=== PATIENT | female | born 1960 | race Caucasian/White ===

== ENCOUNTER 2024-04-08 16:59 | Emergency (ER) | payer BC, SELFPAY ==
--- NOTE | ~2024-04-08 | XR_ITS ---
EXAMINATION: XR chest 2V DATE: 04/08/2024 17:26 INDICATION: Weakness. TECHNIQUE: Frontal and lateral views of the chest were obtained. COMPARISON: None. FINDINGS: There is no pneumonia, pleural effusion, or pneumothorax. The heart size is normal. There a re old healed right rib fractures. IMPRESSION: 1. No acute cardiopulmonary disease. Reviewed, dictated and finalized at location A.
--- NOTE | ~2024-04-08 | CT_ITS ---
EXAMINATION: CT abdomen pelvis wo con DATE: 04/08/2024 17:47 INDICATION: Bilateral flank pain. TECHNIQUE: Computed tomography (CT) of the abdomen and pelvis was performed without intravenous contr ast. Automated exposure control and iterative reconstruction technique were employed. The dose-length product was 1507.06 mGy-cm. COMPARISON: None. FINDINGS: The visualized portions of lung bases demonstrate mild atelectasis. No pleural effusion. Th e heart size is normal. No pericardial effusion. There is liver surface nodularity, consistent with c irrhosis. There are gallstones in the gallbladder, which is normal in size. The spleen, pancreas, adr enal glands, and right kidney are normal. There is a 16 mm cyst in left kidney. There are no dilated loops of bowel. The appendix is normal. There is a periumbilical portacaval shunt. There are no patho logically enlarged lymph nodes. There is no free intraperitoneal fluid. There is severe lumbar spondy losis. There are chronic compression fractures from T11 to L2. IMPRESSION: 1. Cirrhosis of the liver with portal venous hypertension. Reviewed, dictated and finalized at location A.
--- NOTE | 2024-04-08 17:03 | ECG_ITS ---
Test Date: 2024-04-08 17:05:57 Measurements Intervals [place] Rate: 64 P: 47 [place]: 131 QRS: -44 QRSD: 90 T: 59 QT: 420 QTc: 436 Interpretive Statements SINUS RHYTHM LEFT AXIS DEVIATION [QRS AXIS < -30] No previous ECG available for comparison Electronically Signed On 04-09-2024 09:38:16 CDT by Kenji Romero M.D.
[2024-04-08 17:04] VITALS: BP 143/77; PULSE 63; RESP 13; TEMP 37.4; O2SAT 99
[2024-04-08 17:15] LABS: Basophils Percent Auto 0.6 % (0.2-1.2); Eosinophils Absolute Auto 0.4 K/mm3 (0-0.3); Eosinophils Percent Auto 8.2 % (0-4.4); Hematocrit 41.3 % (37.0-47.0); Hemoglobin 13.5 g/dL (12.0-15.0); Immature Granulocyte Absolute 0.01 K/mm3 (0.00-0.031); Immature Granulocyte Percent A 0.2 % (0-0.5); Lymphocytes Absolute Auto 1.97 K/mm3 (0.9-3.2); Lymphocytes Percent Auto 38.6 % (18.3-44.2); Mean Corpuscular HGB Conc 32.7 g/dl (32-36); Mean Corpuscular Hemoglobin 32.5 pg (26-34); Mean Corpuscular Volume 99.3 fl (80-100); Mean Platelet Volume 9.8 fl (7.4-10.4); Monocytes Absolute Auto 0.6 K/mm3 (0.1-0.6); Monocytes Percent Auto 12.2 % (2.6-8.5); Neutrophils Absolute Auto 2.1 K/mm3 (1.3-6.7); Neutrophils Percent Auto 40.2 % (45.5-73.1); Platelet Count Result 185 k/mm3 (150-375); Red Blood Count 4.16 M/mm3 (4.2-5.4); Red Cell Distribution Width 15.2 % (11.5-14.5); White Blood Count 5.1 K/mm3 (4.5-10.0)
[2024-04-08 17:25] LABS: Alanine Aminotransferase 140 U/L (6-35); Albumin Level 3.9 g/dL (3.5-5.1); Alkaline Phosphatase 112 U/L (38-126); Anion Gap 4 mmol/L (4-12); Aspartate Amino Transferase 169 U/L (14-36); Bilirubin,Total 0.5 mg/dL (0.2-1.3); Blood Urea Nitrogen 20 mg/dL (7-17); Calcium 9.9 mg/dL (8.4-10.2); Carbon Dioxide 30 mmol/L (22-30); Chloride 102 mmol/L (98-107); Estimated CRCL calculation 105 ml/min; Estimated Glomerular Filt Rate > 60; Glucose 137 mg/dL (65-110); Potassium 4.2 mmol/L (3.4-5.0); Sodium 136 mmol/L (137-145)
[2024-04-08] MEDS: SODIUM CHLORIDE 0.9% IV 1,000 ML 999 ML IV CONT (17:49)
--- NOTE | 2024-04-08 17:50 | ED.GENADULT ---
HPI - General Adult General Chief complaint: Weakness Stated complaint: weakness, UTI sx Time Seen by Provider: 04/08/24 17:03 Source: patient Mode of arrival: EMS Limitations: no limitations History of Present Illness HPI narrative: Patient is a 63-year-old female who presents the ED via EMS with report of UTI symptoms. Patient is currently residing at home with residential for rehab. States over the last 2-3 weeks she has been having a UTI symptoms including dysuria, frequency. She has history of frequent UTIs and states symptoms feel similar. She has had 2 separate UAs performed at the residential, but is unsure of the results of these. Denies significant abdominal pain, but does report intermittent nausea, weakness, and lower back pain, worse on the right side. Denies history of kidney stones. Denies hematuria. Denies fevers, vomiting. Related Data Allergies Allergy/AdvReac Type Severity Reaction Status Date / Time ziprasidone [From [facility]don] Allergy Anaphylaxis Verified 04/08/24 17:11 NSAIDS (Non-Steroidal AdvReac Ulcers Verified 04/08/24 17:11 Anti-Inflamma Review of Systems Review of Systems: All systems reviewed & are unremarkable except as noted in HPI. All systems reviewed & are unremarkable except as noted in HPI and below Exam Narrative: GENERAL: Well appearing, morbidly obese with BMI of 43.4, non-toxic, in no acute distress. HEAD: Normocephalic, atraumatic. RESPIRATORY: Airway patent, respirations nonlabored. Clear to auscultation bilaterally, no rales, rhonchi, wheezing. CARDIOVASCULAR: Regular rate and rhythm without murmurs, rubs, or gallops. ABDOMINAL: Soft, no significant tenderness throughout abdomen. Nondistended. Normoactive BS. Mild + R CVA tenderness. MUSCULOSKELETAL: Moves all extremities. No gross deformities. SKIN: Warm, dry, normal color. NEURO: A&O X3. Speech clear. PSYCHIATRIC: Appropriate mood and affect. Normal interaction. Course Vital Signs Vital signs: Vital Signs Temperature 99.3 F 04/08/24 17:04 Pulse Rate 63 04/08/24 17:04 Respiratory Rate 13 04/08/24 17:04 Blood Pressure 143/77 H 04/08/24 17:04 Pulse Oximetry 99 04/08/24 17:04 Oxygen Delivery Room Air 04/08/24 17:04 Temperature 99.3 F 04/08/24 17:04 Pulse Rate 63 04/08/24 17:04 Respiratory Rate 13 04/08/24 17:04 Blood Pressure 143/77 H 04/08/24 17:04 Pulse Oximetry 99 04/08/24 17:04 Oxygen Delivery Room Air 04/08/24 17:04 Medical Decision Making MDM Narrative Medical decision making narrative: Patient presented to ED with concern for UTI symptoms, weakness. History of frequent UTIs. Currently at residential for reported rehab. Vital signs are stable upon arrival. In no acute distress. CBC is without leukocytosis. CMP is fairly unremarkable. Stable electrolytes and kidney function. AST and ALT are mildly elevated, though total bilirubin is normal. No right upper quadrant tenderness exam. Viral swabs are negative. UA is clear. No signs of infection whatsoever. Chest x-ray is clear. CT scan of abdomen/pelvis was obtained and showing cirrhosis with portal venous hypertension, no ureterolithiasis, pyelonephritis. Updated patient on this. She does report she has been told her liver enzymes have been elevated in the past. She denies known history of cirrhosis. She does have history of alcoholism several years ago. Will refer to GI for further evaluation of this. No evidence of decompensated liver failure at this time. EKG without concerning changes. Patient was updated on lab and imaging findings, overall nonrevealing w/u. Patient states she is feeling much better after 1L of fluids. She feels reassured by w/u. Feels safe for d/c back to facility. Will prescribe Pyridium for symptom relief. Recommended close follow-up with PCP/GI for further evaluation. Given return precautions. Discharged in stable condition. Medical Records Medical records reviewed: Efraín
[2024-04-08 18:07] LABS: Lactic Acid Reflex 1.4 mmol/L (0.7-2.0)
[2024-04-08 18:12] LABS: Add Urine Microscopic? NO; Appearance Urine Clear (Clear); Bilirubin Urine Negative (Negative); Blood Urine Negative (Negative); Color Urine Yellow (Yellow); Glucose Urine UA Negative (Negative); Ketones Urine Negative (Negative); Leukocyte Esterase Ur Negative LEU/UL (Negative); Nitrate Urine Negative (Negative); Protein Urine Negative (Negative); Specific Grav Ur 1.018 (1.001-1.035)
[2024-04-08 18:31] LABS: Influenza A QL RT-PCR Negative (Negative); Influenza B QL RT-PCR Negative (Negative); RSV RNA, RT-PCR Negative (Negative); SARS-CoV-2 RNA PCR Negative (Negative)
== END 2024-04-08 20:18 | disposition home or self-care (01) ==
PROVIDERS: Emergency Medicine; Emergency Provider Physician Assistant
DX: R30.0 Dysuria (principal); R53.1 Weakness; K74.60 Unspecified cirrhosis of liver; Z20.822 Contact with and (suspected) exposure to COVID-19
CPT/HCPCS: 36415; 71046; 74176; 80053; 81003; 83605; 85025; 87637; 93005; 96360; 99284; J7030

== ENCOUNTER 2025-01-27 21:26 | Inpatient (IN) | payer OTHER, SELFPAY ==
[2025-01-27] VITALS (9 sets, daily range): BP systolic 84–129; BP diastolic 42–89; PULSE 72–105; RESP 14–20; TEMP 36.7–37.2; O2SAT 95–99
--- NOTE | ~2025-01-27 | XR_ITS ---
EXAMINATION: XR chest 1V portable DATE: 02/09/2025 05:42 INDICATION: Acute respiratory failure. Pneumonia. TECHNIQUE: frontal view of the chest was obtained. COMPARISON: Chest radiograph dated 02/08/2025 FINDINGS: Endotracheal tube tip 1.9 cm above the [place]is[place]. Nasoenteric feeding tube extends below the left hemidi aphragm and beyond the inferior margin of the field of imaging. Right internal jugular central venous catheter with distal tip in the right atrium. Small lung volumes with patchy airspace opacities throughout both lungs, unchanged on the left with s light improvement in the right mid to upper lung zone. No pleural effusion or pneumothorax. Heart siz e is normal. IMPRESSION: 1. Small lung volumes with diffuse patchy bilateral airspace opacities which could represent atelecta sis and/or pneumonia with slight improvement in the right mid-upper lung zone. Reviewed, dictated and finalized at location A. IMPRESSION: 1. Small lung volumes with diffuse patchy bilateral airspace opacities which co uld represent atelectasis and/or pneumonia with slight improvement in the right mid-upper lung zone.
--- NOTE | ~2025-01-27 | XR_ITS ---
EXAMINATION: XR chest 1V portable DATE: 02/07/2025 06:16 INDICATION: Acute respiratory failure and pneumonia TECHNIQUE: frontal view of the chest was obtained. COMPARISON: Chest radiograph dated 02/06/2025 FINDINGS: Endotracheal tube tip 1.8 cm above the [place]. Right internal jugular central venous catheter with di stal tip in the right atrium. Patchy airspace opacities throughout both lungs. No pleural effusion or pneumothorax. Heart size is n ormal. IMPRESSION: 1. Persistent patchy airspace opacities throughout both lungs consistent with pneumonia, pulmonary ed stephen, acute respiratory distress syndrome or some combination thereof. Reviewed, dictated and finalized at location A. IMPRESSION: 1. Persistent patchy airspace opacities throughout both lungs consistent with p neumonia, pulmonary edema, acute respiratory distress syndrome or some combinat ion thereof.
--- NOTE | ~2025-01-27 | XR_ITS ---
XR chest 1V portable 02/05/2025 05:37 Indication: Respiratory failure Procedure: AP portable chest Comparison: Comparison to multiple prior studies sequentially, with oldest reviewed study dated 02/02. Findings: Endotracheal tube tip 2.6 cm by the [place]. Right IJ central line tip in the right atrium. Diffuse bilateral airspace consolidation. Small pleural effusions. No pneumothorax. Right IJ central line tip in the SVC near the cavoatrial junction. Impression: 1: Stable diffuse bilateral airspace consolidation which may represent pneumonia and/or edema. Reviewed, dictated and finalized at location A. Impression: 1: Stable diffuse bilateral airspace consolidation which may represent pneumoni a and/or edema.
--- NOTE | ~2025-01-27 | XR_ITS ---
CHEST RADIOGRAPH CLINICAL HISTORY: GI bleed . COMPARISON: 04/08/2024 TECHNIQUE: Single portable view of the chest. FINDINGS Right internal jugular central venous catheter identified with its tip projecting over the proximal r ight atrium. Nasogastric tube extends below the left hemidiaphragm, presumably within the stomach. The remainder of the cardiomediastinal silhouette is otherwise unremarkable. The lungs are clear. No right-sided pneumothorax. IMPRESSION: No focal infiltrate or effusion. Right internal jugular central venous catheter in good position and ready for immediate use. Reviewed, dictated and finalized at location A. IMPRESSION: No focal infiltrate or effusion. Right internal jugular central venous catheter in good position and ready for i mmediate use.
--- NOTE | ~2025-01-27 | XR_ITS ---
EXAMINATION: XR chest 1V portable DATE: 01/31/2025 05:09 INDICATION: Respiratory failure on mechanical ventilation TECHNIQUE: frontal view of the chest was obtained. COMPARISON: Chest radiograph dated 01/30/2025 FINDINGS: Endotracheal tube tip 5.0 cm above the [place]. Small lung volumes. Persistent retrocardiac consolidat ion in the left lower lung zone. Persistent small airspace opacities in the right lower lung zone. Sm all left pleural effusion. No pneumothorax. Heart size is normal. A few old right rib fractures. IMPRESSION: 1. Unchanged opacities in the bilateral lower lung zones, left greater right which could represent at electasis and/or pneumonia. 2. Small left pleural effusion. Reviewed, dictated and finalized at location A. IMPRESSION: 1. Unchanged opacities in the bilateral lower lung zones, left greater right wh ich could represent atelectasis and/or pneumonia. 2. Small left pleural effusion.
--- NOTE | ~2025-01-27 | XR_ITS ---
EXAMINATION: XR chest ET placement Exam Date/Time: 02/04/2025 21:30 CDT HISTORY: intubation Comparison: Same date at 5:16 AM. RESULT: Lines, tubes, and devices: The endotracheal tube terminates 2.7 cm above the [place]. Right IJ centra l line terminates just past the cavoatrial junction. Lungs and pleura: Stable patchy left lung and worsening patchy right lung airspace disease. Mild cos tophrenic angle blunting bilaterally. Cardiomediastinal silhouette: Stable. Other: No acute osseous or upper abdominal finding. IMPRESSION: Endotracheal tube terminating 2.7 cm above the mo[place], consider retraction. Right IJ central line terminates just past the cavoatrial junction, likely accentuated by low lung vo lumes. Stable left lung and worsening right lung patchy airspace disease. Possible small bilateral effusions . Reviewed, dictated and finalized at [facility] K. IMPRESSION: Endotracheal tube terminating 2.7 cm above the mo[place], consider retraction. Right IJ central line terminates just past the cavoatrial junction, likely acce ntuated by low lung volumes. Stable left lung and worsening right lung patchy airspace disease. Possible sma ll bilateral effusions.
--- NOTE | ~2025-01-27 | XR_ITS ---
Portable chest x-ray Comparison: 01/28/2025 Clinical History: Respiratory failure Findings: Endotracheal tube, NG tube, and right IJ line are in place. Small left pleural effusion an d minimal right pleural effusion present. There is bibasilar mild pulmonary edema/atelectatic change. Cardiomediastinal silhouette is stable. Bones and soft tissues are unremarkable. Impression: Mild bibasilar pulmonary edema/atelectasis with small pleural effusions, left greater than right. Support tubes, as above. Reviewed, dictated and finalized at location M. Impression: Mild bibasilar pulmonary edema/atelectasis with small pleural effusions, left g reater than right. Support tubes, as above.
--- NOTE | ~2025-01-27 | CT_ITS ---
EXAMINATION: CT brain wo con DATE: 02/02/2025 13:23 INDICATION: Encephalopathy TECHNIQUE: Computed tomography (CT) of the head was performed without intravenous contrast. Sagittal and coronal reconstructions were performed. The mA was adjusted according to patient size. Iterative reconstruction technique was employed. The dose-length product was 681.00 mGy-cm. COMPARISON: head CT dated 01/28/25 FINDINGS: No acute intracranial hemorrhage, acute infarction or abnormal extra axial fluid collection. There is mild scattered white matter hypoattenuation consistent with chronic small vessel ischemic disease. S ymmetric prominence of the sulci consistent with mild age-appropriate diffuse cerebral volume loss. Ventricles are normal and symmetric. No mass/mass effect. Changes of right intraocular lens replaceme nt. The orbits and paranasal sinuses are normal. Unchanged small left mastoid effusion. Likely benign partially calcified midline frontal scalp nodule, likely a trichilemmal cyst. IMPRESSION: 1. No acute intracranial process. 2. Stable age-related changes including mild diffuse volume loss and mild scattered white matter hypo attenuation consistent with chronic small vessel ischemic disease. Reviewed, dictated and finalized at location A. IMPRESSION: 1. No acute intracranial process. 2. Stable age-related changes including mild diffuse volume loss and mild scatt ered white matter hypoattenuation consistent with chronic small vessel ischemic disease.
--- NOTE | ~2025-01-27 | XR_ITS ---
XR chest 1V portable 01/30/2025 06:41 Indication: Respiratory distress Procedure: AP portable chest Comparison: Comparison to multiple prior studies sequentially, with oldest reviewed study dated 03/25. Findings: Cardiomegaly. Mild interstitial edema. Focal consolidation left lower lobe. Small left pleu ral effusion. Endotracheal tube tip 4.5 cm above the mois[place]. Right IJ central line tip near the cavoa trial junction. NG tube in the stomach. Impression: 1: Focal consolidation left lower lobe may represent atelectasis and/or pneumonia. 2: Cardiomegaly with mild interstitial edema. 3: Small left pleural effusion. Reviewed, dictated and finalized at location A. Impression: 1: Focal consolidation left lower lobe may represent atelectasis and/or pneumon ia. 2: Cardiomegaly with mild interstitial edema. 3: Small left pleural effusion.
--- NOTE | ~2025-01-27 | CT_ITS ---
Non-contrast Head CT History: Unequal pupils Technique: Axial non-contrast imaging of the brain was performed. Dose reduction technique was used on this scan by utilizing automated exposure control and iterative reconstruction technique. The dose -length product (DLP) was 681.00 mGy-cm. Findings: There is no evidence of intracranial hemorrhage, mass lesion, or acute infarct. Brain par enchyma appears normal. The ventricles and subarachnoid spaces are normal in size. The calvarium ap pears normal. The visualized paranasal sinuses and mastoid air cells are clear. Impression: No significant abnormality seen. Reviewed, dictated and finalized at location . Impression: No significant abnormality seen.
--- NOTE | ~2025-01-27 | XR_ITS ---
XR chest 1V portable 02/02/2025 05:19 Indication: Respiratory failure Procedure: AP portable chest Comparison: Comparison to multiple prior studies sequentially, with oldest reviewed study dated 12/2024. Findings: Endotracheal tube tip 4.2 cm above the moisés. Cardiomegaly. Mild interstitial edema. No pl eural effusion or pneumothorax. Central line tip near the cavoatrial junction. Impression: 1: No significant change to bilateral airspace disease, compatible with edema. Reviewed, dictated and finalized at location A. Impression: 1: No significant change to bilateral airspace disease, compatible with edema.
--- NOTE | ~2025-01-27 | XR_ITS ---
EXAMINATION: XR chest 1V portable DATE: 02/01/2025 05:20 INDICATION: Respiratory failure TECHNIQUE: frontal view of the chest was obtained. COMPARISON: Chest radiograph dated 01/31/2025 FINDINGS: Endotracheal tube tip 3.5 cm above the moisés. Right internal jugular central venous catheter with di stal tip in the right atrium. Lung volumes are small. Opacities at the bilateral lower lung zones with interval decrease on the lef t. No pleural effusion or pneumothorax. Heart size is within normal limits for AP technique Visualize d bones and soft tissues are unremarkable. IMPRESSION: 1. Small lung volumes and persistent opacities in bilateral lower lung zones, decreased on the left, which could represent atelectasis or pneumonia. Reviewed, dictated and finalized at location A. IMPRESSION: 1. Small lung volumes and persistent opacities in bilateral lower lung zones, d ecreased on the left, which could represent atelectasis or pneumonia.
--- NOTE | ~2025-01-27 | XR_ITS ---
EXAMINATION: XR fl Dobhoff insert/rad w img DATE: 02/07/2025 13:00 INDICATION: Esophageal varices banding. Coiling of nasogastric tube. TECHNIQUE: A Dobbhoff type feeding tube was advanced into the duodenum utilizing intermittent fluoroscopy. 15 mL Omnipaque 240 water-soluble contrast was injected into the stomach to delineate the anatomy the yan makayla outlet and duodenum. Final image demonstrates the feeding tube in position with the weighted tip at the expected location of the ligament of Treitz. The tube was flushed with 10 mL sterile saline an d fixed to the nares with adhesive tape. A single fluoroscopic image was recorded. The amount of fluo roscopy time used during this procedure was 1.1 minutes. Total DAP was 16.523 Gycm^2. There were no immediate complications. FINDINGS/IMPRESSION: Successful fluoroscopy-guided Dobbhoff feeding tube placement with distal tip in the fourth portion o f the duodenum. Reviewed, dictated and finalized at location A.
--- NOTE | ~2025-01-27 | CT_ITS ---
CLINICAL INDICATION: Epigastric abdominal pain with active bleeding from the rectum. COMPARISON: 04/08/2024. TECHNIQUE: Computed tomography angiography (CTA) of the chest was performed with 100 mL Omnipaque-350 intravenous contrast timed to evaluate the abdominal aorta and mesenteric vasculature. Coronal maxim um intensity projection 3D-reconstructions were created by the technologist. The dose-length product (DLP) was 1544.98 mGy-cm. Automated exposure control and iterative reconstruction technique were empl oyed. FINDINGS/OBSERVATIONS: Visualized lower thorax: Bilateral lung bases are clear. The heart is of normal size, without pericardial effusion. Nasogastric tube is in the stomach which contains dense attenuation, of increased attenuation value, not consistent with blood. Liver: The liver is borderline enlarged measuring 19 cm in longitudinal dimension. The liver is nodular in contour with multiple areas of abnormal attenuation, the largest within segme nt 6 measuring 2.2 x 2.7 x 3.1 cm (anterior to posterior x medial to lateral x cranial to caudal dime nsion). This focus is increased in size from examination dated 04/08/2024, for which a malignancy is suspected (versus a regenerative nodule, less likely). A smaller focus of abnormal attenuation is identified within segment 4 measuring 1.7 x 1.9 x 1.6 cm ( anterior to posterior x medial to lateral x cranial to caudal dimension). Gallbladder and biliary system: The gallbladder contains multiple calcified stones, and is otherwise unremarkable. Pancreas: The pancreas enhances homogeneously without ductal dilatation. Spleen: Spleen demonstrates homogeneous enhancement, without enlargement. Kidneys: The bilateral kidneys are diminutive and atrophic. 12 mm focus of fluid attenuation within the interpolar region of the left kidney, for which a cyst is suspected. No hydronephrosis or renal calculi. Adrenal glands: Unremarkable. Gastrointestinal tract: A rectal tube is present. Within the distal rectum multiple areas of increased attenuation, for which acute hemorrhage is suspe cted. Vasculature: Cavernous transformation of the portal vein is present. Umbilical varices are also noted. No splenorenal varices are present. Esophageal varices are present. Anorectal varices are noted within the deep pelvis. Lymph nodes: No pathologically enlarged or morphologically suspicious lymph nodes within the retroperitoneum or at the root of the mesentery. Pelvic structures: The bladder is decompressed with Simon catheter, limiting its evaluation. The uterus is anteverted and anteflexed. Intra-abdominal ascites is present, an interval change from prior examination. Body wall and musculoskeletal: Age advanced degenerative disease within the lower thoracic and lumbosacral spines. Umbilical varices are redemonstrated within the soft tissues of the anterior abdominal wall. IMPRESSION: Findings within the liver for which malignancy is suspected. Additional findings within the rectum for which acute hemorrhage is suspected (likely secondary to an orectal varices). No findings to suggest upper GI bleeding. 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 Incidental notation is made of cholelithiasis. Reviewed, dictated and finalized at location A. IMPRESSION: Findings within the liver for which malignancy is suspected. Additional findings within the rectum for which acute hemorrhage is suspected ( likely secondary to anorectal varices). No findings to suggest upper GI bleeding. 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 Incidental notation is made of cholelithiasis.
--- NOTE | ~2025-01-27 | XR_ITS ---
EXAMINATION: XR abdomen gastric tube insert DATE: 01/28/2025 13:52 INDICATION: Nasogastric tube placement TECHNIQUE: A supine view of the abdomen and lower chest was obtained for evaluation of feeding tube placement. COMPARISON: None. FINDINGS: Nasogastric tube tip in proximal side port in the body the stomach. Mild elevation of left hemidiaphr agm. Mild streaky bibasilar atelectasis. No dilated loops of gas-filled bowel in the visualized abdom en which excludes the lower abdomen and portions of the lateral right abdomen. IMPRESSION: 1. Nasogastric tube in stomach. Reviewed, dictated and finalized at location A.
--- NOTE | ~2025-01-27 | XR_ITS ---
XR chest 1V portable 02/04/2025 05:37 Indication: Respiratory failure Procedure: AP portable chest Comparison: 02/03/2025 Findings: Endotracheal tube tip 5.2 cm above the moisés. Heart size normal. Progression of diffuse bi lateral airspace disease. Small right pleural effusion. No pneumothorax. Right IJ central line tip ne ar the cavoatrial junction. Shallow inspiration. Impression: 1: Interval progression of diffuse bilateral airspace disease which may represent edema and/or pneumo carl. Reviewed, dictated and finalized at location A. Impression: 1: Interval progression of diffuse bilateral airspace disease which may represe nt edema and/or pneumonia.
--- NOTE | ~2025-01-27 | XR_ITS ---
Exam: Abdomen 1V HISTORY: post ng tube placement COMPARISON: None. TECHNIQUE: Supine images of the lower chest and upper abdomen FINDINGS: Nasogastric tube extends into the left upper quadrant, with its tip projecting to the right of midlin e, presumably within the stomach. IMPRESSION: Nasogastric tube in good position and ready for immediate use. Reviewed, dictated and finalized at location A.
--- NOTE | ~2025-01-27 | XR_ITS ---
Portable chest x-ray Comparison: 02/07/2025 Clinical History: Respiratory failure Findings: Endotracheal tube and right IJ line are in place. Extensive bilateral airspace disease is present. Probable minimal pleural effusions. Cardiomediastinal silhouette is stable. Bones and soft tissues are unremarkable. Impression: Extensive patchy bilateral airspace disease. Correlate for pulmonary edema versus bilateral pneumonia . Minimal pleural effusions. Support tubes, as above. Reviewed, dictated and finalized at [facility]. Impression: Extensive patchy bilateral airspace disease. Correlate for pulmonary edema vers us bilateral pneumonia. Minimal pleural effusions. Support tubes, as above.
--- NOTE | ~2025-01-27 | CT_ITS ---
EXAMINATION: CT chest abdomen pelvis w con DATE: 02/05/2025 10:14 CDT INDICATION: Pneumonia. Constipation. TECHNIQUE: Computed tomography (CT) of the chest, abdomen, and pelvis was performed without intraveno us contrast. The dose-length product was 1936.13 mGy-cm. COMPARISON: CT abdomen and pelvis 04/08/2024 FINDINGS: CHEST CT: Endotracheal tube with its tip 3 cm above the moisés. There are a few nonenlarged, nonspecific mediastinal and hilar lymph nodes. Heart is mildly enlarged. There are coronary artery calcifications. Thoracic aorta is not aneurysmal. Mild atherosclerotic disease in the thoracic aorta. Visualized tracheal bronchial tree is patent. Tiny left-sided pleural effusion. Small right-sided pleural effusion. Moderate to large groundglass and patchy opacities scattered throughout both lungs. Moderate-sized co nsolidations in the lower lobes, larger on the right with air bronchograms. ABDOMEN/PELVIS CT: The liver is heterogeneous. Micronodular appearance to the surface of the liver. There is a 2.4 cm lo w-density lesion in the posterior segment of the right lobe of the liver. A liver mass MRI is recomme nded. Evaluation of the liver is significantly limited due to artifact. There are several gallstones in the gallbladder. There is a too small to characterize low-attenuation lesion in the left kidney. Adrenal glands are un remarkable. Spleen is unremarkable. Pancreas is unremarkable. Moderate amount of nonspecific fat stranding and ascites scattered throughout the abdomen and pelvis. Normal aorta is not aneurysmal. Moderate atherosclerotic disease in the abdominal aorta. Simon catheter in the nondistended bladder. No dilated bowel loops. Nonspecific fat stranding in the subcutaneous fat along the anterior abdominal and pelvic uribe. Bones appear osteopenic. Multilevel degenerative change in the lower thoracic and lumbar spine simila r to the study from 04/08/2024. IMPRESSION: 1. Tiny left-sided pleural effusion. Small right-sided pleural effusion. 2. Moderate to large groundglass and patchy opacities scattered throughout both lungs. Differential i s broad and includes but is not limited to edema or pneumonia. Recommend follow-up to resolution. 3. Moderate-sized consolidations in the lower lobes, larger on the right, with air bronchograms. Olivier mmend follow-up to resolution. 4.The liver is heterogeneous. Micronodular appearance to the surface of the liver. There is a 2.4 cm low-density lesion in the posterior segment of the right lobe of the liver. A liver mass MRI is recom mended. Evaluation of the liver is significantly limited due to artifact. 5. Moderate amount of nonspecific fat stranding and ascites scattered throughout the abdomen and pelv is. 6. Cholelithiasis. Reviewed, dictated and finalized at location A. IMPRESSION: 1. Tiny left-sided pleural effusion. Small right-sided pleural effusion. 2. Moderate to large groundglass and patchy opacities scattered throughout both lungs. Differential is broad and includes but is not limited to edema or pneum onia. Recommend follow-up to resolution. 3. Moderate-sized consolidations in the lower lobes, larger on the right, with air bronchograms. Recommend follow-up to resolution. 4.The liver is heterogeneous. Micronodular appearance to the surface of the dennis er. There is a 2.4 cm low-density lesion in the posterior segment of the right lobe of the liver. A liver mass MRI is recommended. Evaluation of the liver is significantly limited due to artifact. 5. Moderate amount of nonspecific fat stranding and ascites scattered throughou t the abdomen and pelvis. 6. Cholelithiasis.
--- NOTE | ~2025-01-27 | XR_ITS ---
EXAMINATION: XR abdomen obstructive series DATE: 02/07/2025 10:06 INDICATION: Distended abdomen. TECHNIQUE: Supine and upright views of the abdomen. FINDINGS: CT dated 02/05/2025 There is airspace disease in the lung bases.. There is diffuse opacification of the abdomen and pelvi s, consistent with ascites. No significant bowel gas demonstrated. Study extremely limited due to pat ient body habitus. There is moderate lumbar spondylosis with levoscoliosis. IMPRESSION: 1. Diffuse opacification of the abdomen without significant bowel gas, likely attributable to ascite s. Study limited by patient body habitus. 2: Bibasilar airspace disease may represent edema or pneumonia. Reviewed, dictated and finalized at location A. IMPRESSION: 1. Diffuse opacification of the abdomen without significant bowel gas, likely attributable to ascites. Study limited by patient body habitus. 2: Bibasilar airspace disease may represent edema or pneumonia.
--- NOTE | ~2025-01-27 | XR_ITS ---
XR chest 1V portable 02/06/2025 06:04 Indication: Respiratory failure Procedure: AP portable chest Comparison: Comparison to multiple prior studies sequentially, with oldest reviewed study dated 02/03. Findings: Improving patchy bilateral airspace consolidation. Right IJ central line tip in the SVC. En dotracheal tube tip 3.3 cm above the moisés. No significant effusion. No pneumothorax. No acute osseo us abnormality. There are healed right lower rib fractures. Impression: 1: Improving patchy bilateral airspace disease,, most likely pneumonia or edema. Clinically correlate . Reviewed, dictated and finalized at location A. Impression: 1: Improving patchy bilateral airspace disease,, most likely pneumonia or edema . Clinically correlate.
--- NOTE | ~2025-01-27 | XR_ITS ---
EXAMINATION: XR chest ET placement, XR abdomen gastric tube insert DATE: 01/28/2025 09:38 INDICATION: Endotracheal tube placement. Nasogastric tube placement. TECHNIQUE: 1. Frontal view of the chest was obtained. 2. AP view of the abdomen was obtained on 2 images for assessment of feeding tube placement. COMPARISON: Chest radiograph dated 01/27/2025 FINDINGS: New endotracheal tube with distal tip 1.7 cm above the moisés. Unchanged dual-lumen right internal ju gular central venous catheter with distal tip in the right atrium. Nasogastric tube with tip in proxi mal side port in the body of the stomach. Mildly decreased lung volumes with bibasilar no pulmonary edema, pleural effusion or pneumothorax. He art size is normal. A few old healed posterolateral right rib fractures. Opacities which could repres ent atelectasis or pneumonia. No abnormal dilated gas-filled loops of bowel in the visualized abdomen . The pelvis and right lower quadrant of the abdomen are excluded from the field of imaging. IMPRESSION: 1. Lines and tubes in expected position as detailed above. 2. Small lung volumes with mild bibasilar atelectasis versus pneumonia. Reviewed, dictated and finalized at location A. IMPRESSION: 1. Lines and tubes in expected position as detailed above. 2. Small lung volumes with mild bibasilar atelectasis versus pneumonia.
--- NOTE | ~2025-01-27 | XR_ITS ---
XR chest 1V portable 02/03/2025 05:27 Indication: Respiratory failure Procedure: AP portable chest Comparison: Comparison to multiple prior studies sequentially, with oldest reviewed study dated 01/2025. Findings: Endotracheal tube tip 4.6 cm above the moisés. Central line tip near the cavoatrial junctio n. No pneumothorax. Patchy bilateral airspace disease which may reflect pneumonia or edema. Possible small effusion. No pneumothorax. Impression: 1: Persistent patchy bilateral airspace disease which may represent pneumonia or edema. Reviewed, dictated and finalized at location A. Impression: 1: Persistent patchy bilateral airspace disease which may represent pneumonia o r edema.
--- NOTE | ~2025-01-27 | XR_ITS ---
Exam: Abdomen 1V HISTORY: NG PLACEMENT COMPARISON: None TECHNIQUE: Supine images of the lower chest and upper abdomen FINDINGS: Nasogastric is coiled within the oral cavity and then extends along the trachea above the moisés.. IMPRESSION: Nasogastric tube coiled within the patient's mouth and extending along the trachea to the left of mid line above the moisés. Reviewed, dictated and finalized at location A. IMPRESSION: Nasogastric tube coiled within the patient's mouth and extending along the trac hea to the left of midline above the moisés.
--- NOTE | 2025-01-27 21:29 | ECG_ITS ---
Test Date: 2025-01-27 21:34:48 Measurements Intervals [place] Rate: 107 P: 59 [place]: 142 QRS: -18 QRSD: 88 T: 61 QT: 330 QTc: 442 Interpretive Statements SINUS TACHYCARDIA DELAYED PRECORDIAL R/S TRANSITION BASELINE ARTIFACT- I, III, AVR, AVL ABNORMAL ECG Compared to ECG 04/08/2024 17:05:57 HEART RATE HAS INCREASED Electronically Signed On 01-28-2025 06:23:12 CDT by Raymon Giraldo D.O.
--- NOTE | 2025-01-27 21:40 | ED.GIBLEED ---
HPI - GI Bleed General Chief complaint: GI Bleed <CAROLINE Bal Last Filed: 01/28/25 02:31> Stated complaint: Rectal bleeding/abd pain <CAROLINE Bal Last Filed: 01/28/25 02:31> History of Present Illness HPI Narrative: 64-year-old female presents emergency department from [facility] via EMS for a GI bleed. Patient states today she has had epigastric abdominal pain. He EMS states facility told them that when they got the patient up to given the shower they noticed active bleeding from the rectum 30 minutes prior to arrival. The patient states that she has had a similar episode previously several years ago. She notes a colonoscopy last in 2010 but is uncertain of results. Denies prior history of endoscopy. Per chart review patient had cirrhosis diagnosed on CT imaging with evidence of portal hypertension in February 2024. Admits to remote hx of alcohol abuse. Denies current ETOH use. Patient denies nausea, vomiting, coffee-ground emesis or hematemesis. She is not anticoagulated. <Camille Little PA-C - Last Filed: 01/28/25 02:31> Related Data Allergies/Adverse reactions: Allergies Allergy/AdvReac Type Severity Reaction Status Date / Time ziprasidone (From Marc) Allergy Anaphylaxis Verified 04/08/24 17:11 NSAIDS (Non-Steroidal AdvReac Ulcers Verified 04/08/24 17:11 Anti-Inflamma <CAROLINE Bal Last Filed: 01/28/25 02:31> Review of Systems Review of Systems: All systems reviewed & are unremarkable except as noted in HPI and below <Camille Little PA-C - Last Filed: 01/28/25 02:31> [facility] Past Medical History Medical History: Medical History Compression fracture of L2 T12 compression fracture Compression fracture of T11 vertebra Compression fracture of L1 lumbar vertebra Portal venous hypertension Alcoholic cirrhosis Alcoholism in recovery <CAROLINE Bal Last Filed: 01/28/25 02:31> Surgical History Surgical History: Surgical History (Updated 01/28/25 @ 02:18 by Gabriela Mckeon DO) Surgical history unknown <CAROLINE Bal Last Filed: 01/28/25 02:31> Family History Family History: Family History (Updated 01/28/25 @ 02:18 by Gabriela Mckeon DO) Other Unknown family medical history <Camille Little PA-C - Last Filed: 01/28/25 02:31> Social History Social History: Social History Social History: Patient resides at [facility]. She has a history of alcohol abuse in recovery. Code status: Full code <Camille Little PA-C - Last Filed: 01/28/25 02:31> Exam Narrative: GENERAL: Ill-appearing, diaphoretic, moaning in pain HEAD: Normocephalic, atraumatic. EYES: PERRLA and EOMI. ENT: Nares clear, no rhinorrhea or epistaxis. Mucous membranes moist. NECK: Supple. CHEST: Clear to auscultation. No respiratory distress. HEART: Regular rate and rhythm. No murmur heard. Normal peripheral pulses. ABDOMEN: Abdomen is distended and tender to the epigastrium. No rebound or rigidity. Melena actively oozing from rectum EXTREMITIES: Normal range of motion. No edema. SKIN: Warm, dry, no rash. NEURO: No focal deficits. Alert and oriented x3 <Camille Little PA-C - Last Filed: 01/28/25 02:31> Course Vital Signs Vital signs: Vital Signs Pulse Rate 105 H 01/27/25 21:08 Respiratory Rate 14 01/27/25 21:08 Blood Pressure 129/61 01/27/25 21:08 Pulse Oximetry 99 01/27/25 21:08 Oxygen Delivery Room Air 01/27/25 21:08 Temperature 98.9 F 01/27/25 22:22 Pulse Rate 98 01/28/25 01:24 Respiratory Rate 18 01/28/25 01:24 Blood Pressure 120/82 01/28/25 01:24 Pulse Oximetry 99 01/28/25 01:24 Oxygen Delivery Room Air 01/27/25 21:08 <Camille Little PA-C - Last Filed: 01/28/25 02:31> Vital Signs Pulse Rate 105 H 01/27/25 21:08 Respiratory Rate 14 01/27/25 21:08 Blood Pressure 129/61 01/27/25 21:08 Pulse Oximetry 99 01/27/25 21:08 Oxygen Delivery Room Air 01/27/25 21:08 Temperature 98.9 F 01/27/25 22:22 Pulse Rate 98 01/28/25 01:24 Respiratory Rate 18 01/28/25 01:24 Blood Pressure 120/82 01/28/25 01:24 Pulse Oximetry 99 01/28/25 01:24 Oxygen Delivery Room Air 01/27/25 21:08 <Stu Puga MD - Last Filed: 01/27/25 22:42> Procedures Arterial Line Arterial line #1: Date of Arterial Line: 01/27/25 <Stu Puga MD - Last Filed: 01/27/25 22:42> Arterial Line Location: radial and right <Stu Puga MD - Last Filed: 01/27/25 22:42> Discussed with the patient/family/POA, the placement of an arterial catheter, including its clinical necessity/indication and associated potential risks, benefits and alternatives.: Yes <Stu Puga MD - Last Filed: 01/27/25 22:42> Patient/family/POA and/or understands and acknowledges the need to proceed with the arterial catheter insertion as an important element of the patient's clinical management.: Yes <Stu Puga MD - Last Filed: 01/27/25 22:42> Perfomed Emergently - Given emergent patient conditions, temporal constraints may have precluded informed consent: Yes <Stu Puga MD - Last Filed: 01/27/25 22:42> Time Out Performed: Yes <Stu Puga MD - Last Filed: 01/27/25 22:42> Size (Gauge): 18 <Stu Puga MD - Last Filed: 01/27/25 22:42> Technique Used: guide wire technique <Stu Puga MD - Last Filed: 01/27/25 22:42> Post-Procedure: line sutured into place and dry sterile dressing placed <Stu Puga MD - Last Filed: 01/27/25 22:42> Patient Tolerated Procedure: well <Stu Puga MD - Last Filed: 01/27/25 22:42> Complications: none <Stu Puga MD - Last Filed: 01/27/25 22:42> Central Line Placement Right IJ: Central Line Date: 01/27/25 <Stu Puga MD - Last Filed: 01/27/25 22:42> Discussed w/ the patient/family/POA,the placement of a central venous catheter, including its clinical necessity/indication & associated potential risks, benifits and alternatives.: Yes <Stu Puga MD - Last Filed: 01/27/25 22:42> The patient/family/POA understand(s) and acknowledge(s) the need to proceed with central venous catheter insertion as an important element of the patient's clinical management.: Yes <Sut Puga MD - Last Filed: 01/27/25 22:42> Performed Emergently - Given emergent patient condition, temporal constraints may have precluded informed consent.: Yes <Stu Puga MD - Last Filed: 01/27/25 22:42> Time Out Performed: Yes <Stu Puga MD - Last Filed: 01/27/25 22:42> Patient Placed on Monitor/Pulse Ox: Yes <Stu Puga MD - Last Filed: 01/27/25 22:42> Max. Sterile Barrier Technique: Caps, large sterile sheet and hand hygiene <Stu Puga MD - Last Filed: 01/27/25 22:42> Central Line Prep: 2% chlorhexidine scrub <Stu Puga MD - Last Filed: 01/27/25 22:42> Technique: sterile prep/drape <Stu Puga MD - Last Filed: 01/27/25 22:42> Local Anesthetic: lidocaine 1% and bupivacaine 0.25% <Stu Puga MD - Last Filed: 01/27/25 22:42> Amount of anesthesia used (mL): 5 <Stu Puga MD - Last Filed: 01/27/25 22:42> Ultrasound Used for Placement: Yes <Stu Puga MD - Last Filed: 01/27/25 22:42> Central Line Lumen Inserted: triple <Stu Puga MD - Last Filed: 01/27/25 22:42> Post Procedure: sutured in place, good blood return, all ports aspirated, flushed, capped and sterile dressing applied <Stu Puga MD - Last Filed: 01/27/25 22:42> Post Procedure X-Ray: tip of catheter in good position and no pneumothorax seen <Stu Puga MD - Last Filed: 01/27/25 22:42> Patient Tolerated Procedure: well and no complications <Stu Puga MD - Last Filed: 01/27/25 22:42> MDM - GI Bleed MDM Narrative Medical decision making narrative: 64-year-old female with a history of cirrhosis found on imaging in February 2024 from presumed prior alcohol abuse presents to the emergency department for GI bleed and abdominal pain. See HPI for further history. Upon arrival to the ED patient is very ill appearing and diaphoretic, moaning in the exam bed. She does have active melena using from her rectum. Her blood pressure stable upon arrival with mild tachycardia 105. Given patient's poor presentation and active GI hemorrhage, I did immediately consult GI, Dr. Jacobo, who advised to stabilize the patient and he will plan for endoscopy in the morning. Advises Protonix, octreotide, Rocephin and transfusion as needed. NG tube was placed which revealed coffee-ground output. Fecal management system placed. Central line and arterial line placed by Dr. Puga and patient was immediately transfused with 2 units of blood and started on Protonix, octreotide, Rocephin, fluids. Patient's lab work is remarkable for leukocytosis of 15.6, hemoglobin is 9.6. Her chemistries reveal a potassium of 5.6, bicarb of 16 with anion gap of 11, BUN of 47 with creatinine of 1.26. LFTs elevated with a bilirubin of 2.2, AST 171, ALT of 40 with normal alk-phos. Lactic acid elevated to 6.2 with repeat lactic at 3.8 after fluids and blood transfusion. EKG shows sinus tachycardia rate of 107, normal WI interval, normal QRS duration, normal QTC, findings are consistent with hyperkalemia, no ischemic changes. CTA IMPRESSION: Findings within the liver for which malignancy is suspected. Additional findings within the rectum for which acute hemorrhage is suspected (likely secondary to anorectal varices). No findings to suggest upper GI bleeding. 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 Incidental notation is made of cholelithiasis. Patient was updated on results. Patient did require morphine for pain medications with improvement. On re-evaluation patient is resting comfortably in exam bed. Vitals have remained stable, blood pressure is currently 140s/80s, heart rate is 99bpm. Plan to admit to the ICU. Discussed with health aid, Dr. Preciado, who agrees to admission to ICU. Discussed with hospitalist, Dr. Mckeon, who evaluated the patient at bedside and agrees to admission. Advises to obtain d dimer, fibrinogen, 100cc/hr maintenance fluids. Pt also placed in soft restraints as she keeps attempting to remove the NG tube. <Camille Little PA-C - Last Filed: 01/28/25 02:31> Lab Data Result diagrams: 01/27/25 21:44 01/27/25 21:44 <Camille Little PA-C - Last Filed: 01/28/25 02:31> Labs: Lab Results 01/27/25 01/27/25 01/27/25 Range/Units 21:44 21:44 21:44 WBC 15.6 H (4.5-10.0) K/mm3 RBC 2.65 L (4.2-5.4) M/mm3 Hgb 9.6 L D (12.0-15.0) g/dL Hct 29.7 L (37.0-47.0) % MCV 112.1 H (80-100) fl MCH 36.2 H (26-34) pg MCHC 32.3 (32-36) g/dl RDW 18.2 H (11.5-14.5) % Plt Count 239 (150-375) k/mm3 MPV 9.9 (7.4-10.4) fl Immature Gran % (Auto) 1.3 H (0-0.5) % Neut % (Auto) 62.0 (45.5-73.1) % Lymph % (Auto) 28.4 (18.3-44.2) % [place] % (Auto) 7.6 (2.6-8.5) % Eos % (Auto) 0.3 (0-4.4) % Baso % (Auto) 0.4 (0.2-1.2) % Lymph # (Auto) 4.44 H (0.9-3.2) K/mm3 [place] # (Auto) 1.2 H (0.1-0.6) K/mm3 Eos # (Auto) 0.1 (0-0.3) K/mm3 Baso # (Auto) 0.1 (0.0-0.1) K/mm3 Abs Immat Gran (auto) 0.20 H (0.00-0.031) K/mm3 Absolute Neuts (auto) 9.7 H (1.3-6.7) K/mm3 Absolute Nucleated RBC 0.020 H (0.0-0.012) K/mm3 Band Neutrophils % Not Reportable Nucleated RBC % 0.1 (0.0-0.2) % Platelet Estimate Adequate (Adequate) Anisocytosis 1+ Macrocytosis 1+ (NORMAL) Schistocytes None seen PT 18.8 H (11.1-14.7) Seconds INR 1.6 APTT 31.1 (22.3-36.8) Seconds Sodium Cancelled 135 L Potassium Cancelled 5.6 H Chloride Cancelled Carbon Dioxide Anion Gap BUN Creatinine Estim Creat Clear Calc Estimated GFR Glucose Lactic Acid (0.7-2.0) mmol/L Calcium Total Bilirubin AST ALT Alkaline Phosphatase Troponin I (0.000-0.034) ng/mL Total Protein Albumin Urine Color (Yellow) Urine Appearance (Clear) Urine pH (5.0-9.0) Ur Specific [place] (1.001-1.035) Urine Protein (Negative) mg/dL Urine Glucose (UA) (Negative) mg/dL Urine Ketones (Negative) mg/dL Ur Blood (Man) (Negative) Urine Nitrate (Negative) Urine Bilirubin (Negative) Urine Urobilinogen (<2.0) mg/dL Add Ur Microanalysis Leukocyte Esterase Rfl (Negative) SYDNEE/UL Urine RBC (0-2) /hpf Urine WBC (0-3) /hpf Ur Squamous Epith Cells (Few) /hpf Urine Bacteria /hpf Urine Casts Blood Type Antibody Screen Crossmatch 01/27/25 01/27/25 01/27/25 Range/Units 21:44 21:44 21:44 WBC (4.5-10.0) K/mm3 RBC (4.2-5.4) M/mm3 Hgb (12.0-15.0) g/dL Hct (37.0-47.0) % MCV (80-100) fl MCH (26-34) pg MCHC (32-36) g/dl RDW (11.5-14.5) % Plt Count (150-375) k/mm3 MPV (7.4-10.4) fl Immature Gran % (Auto) (0-0.5) % Neut % (Auto) (45.5-73.1) % Lymph % (Auto) (18.3-44.2) % [place] % (Auto) (2.6-8.5) % Eos % (Auto) (0-4.4) % Baso % (Auto) (0.2-1.2) % Lymph # (Auto) (0.9-3.2) K/mm3 [place] # (Auto) (0.1-0.6) K/mm3 Eos # (Auto) (0-0.3) K/mm3 Baso # (Auto) (0.0-0.1) K/mm3 Abs Immat Gran (auto) (0.00-0.031) K/mm3 Absolute Neuts (auto) (1.3-6.7) K/mm3 Absolute Nucleated RBC (0.0-0.012) K/mm3 Band Neutrophils % Nucleated RBC % (0.0-0.2) % Platelet Estimate (Adequate) Anisocytosis Macrocytosis (NORMAL) Schistocytes PT (11.1-14.7) Seconds INR APTT (22.3-36.8) Seconds Sodium Potassium Chloride 108 H Carbon Dioxide Cancelled 16 L Anion Gap Cancelled 11 BUN Cancelled Creatinine Estim Creat Clear Calc Estimated GFR Glucose Lactic Acid (0.7-2.0) mmol/L Calcium Total Bilirubin AST ALT Alkaline Phosphatase Troponin I (0.000-0.034) ng/mL Total Protein Albumin Urine Color (Yellow) Urine Appearance (Clear) Urine pH (5.0-9.0) Ur Specific [place] (1.001-1.035) Urine Protein (Negative) mg/dL Urine Glucose (UA) (Negative) mg/dL Urine Ketones (Negative) mg/dL Ur Blood (Man) (Negative) Urine Nitrate (Negative) Urine Bilirubin (Negative) Urine Urobilinogen (<2.0) mg/dL Add Ur Microanalysis Leukocyte Esterase Rfl (Negative) SYDNEE/UL Urine RBC (0-2) /hpf Urine WBC (0-3) /hpf Ur Squamous Epith Cells (Few) /hpf Urine Bacteria /hpf Urine Casts Blood Type Antibody Screen Crossmatch 01/27/25 01/27/25 01/27/25 Range/Units 21:44 21:44 21:44 WBC (4.5-10.0) K/mm3 RBC (4.2-5.4) M/mm3 Hgb (12.0-15.0) g/dL Hct (37.0-47.0) % MCV (80-100) fl MCH (26-34) pg MCHC (32-36) g/dl RDW (11.5-14.5) % Plt Count (150-375) k/mm3 MPV (7.4-10.4) fl Immature Gran % (Auto) (0-0.5) % Neut % (Auto) (45.5-73.1) % Lymph % (Auto) (18.3-44.2) % [place] % (Auto) (2.6-8.5) % Eos % (Auto) (0-4.4) % Baso % (Auto) (0.2-1.2) % Lymph # (Auto) (0.9-3.2) K/mm3 [place] # (Auto) (0.1-0.6) K/mm3 Eos # (Auto) (0-0.3) K/mm3 Baso # (Auto) (0.0-0.1) K/mm3 Abs Immat Gran (auto) (0.00-0.031) K/mm3 Absolute Neuts (auto) (1.3-6.7) K/mm3 Absolute Nucleated RBC (0.0-0.012) K/mm3 Band Neutrophils % Nucleated RBC % (0.0-0.2) % Platelet Estimate (Adequate) Anisocytosis Macrocytosis (NORMAL) Schistocytes PT (11.1-14.7) Seconds INR APTT (22.3-36.8) Seconds Sodium Potassium Chloride Carbon Dioxide Anion Gap BUN 47 H D Creatinine Cancelled 1.26 H Estim Creat Clear Calc Cancelled 66 Estimated GFR Cancelled Glucose Lactic Acid (0.7-2.0) mmol/L Calcium Total Bilirubin AST ALT Alkaline Phosphatase Troponin I (0.000-0.034) ng/mL Total Protein Albumin Urine Color (Yellow) Urine Appearance (Clear) Urine pH (5.0-9.0) Ur Specific [place] (1.001-1.035) Urine Protein (Negative) mg/dL Urine Glucose (UA) (Negative) mg/dL Urine Ketones (Negative) mg/dL Ur Blood (Man) (Negative) Urine Nitrate (Negative) Urine Bilirubin (Negative) Urine Urobilinogen (<2.0) mg/dL Add Ur Microanalysis Leukocyte Esterase Rfl (Negative) SYDNEE/UL Urine RBC (0-2) /hpf Urine WBC (0-3) /hpf Ur Squamous Epith Cells (Few) /hpf Urine Bacteria /hpf Urine Casts Blood Type Antibody Screen Crossmatch 01/27/25 01/27/25 01/27/25 Range/Units 21:44 21:44 21:44 WBC (4.5-10.0) K/mm3 RBC (4.2-5.4) M/mm3 Hgb (12.0-15.0) g/dL Hct (37.0-47.0) % MCV (80-100) fl MCH (26-34) pg MCHC (32-36) g/dl RDW (11.5-14.5) % Plt Count (150-375) k/mm3 MPV (7.4-10.4) fl Immature Gran % (Auto) (0-0.5) % Neut % (Auto) (45.5-73.1) % Lymph % (Auto) (18.3-44.2) % [place] % (Auto) (2.6-8.5) % Eos % (Auto) (0-4.4) % Baso % (Auto) (0.2-1.2) % Lymph # (Auto) (0.9-3.2) K/mm3 [place] # (Auto) (0.1-0.6) K/mm3 Eos # (Auto) (0-0.3) K/mm3 Baso # (Auto) (0.0-0.1) K/mm3 Abs Immat Gran (auto) (0.00-0.031) K/mm3 Absolute Neuts (auto) (1.3-6.7) K/mm3 Absolute Nucleated RBC (0.0-0.012) K/mm3 Band Neutrophils % Nucleated RBC % (0.0-0.2) % Platelet Estimate (Adequate) Anisocytosis Macrocytosis (NORMAL) Schistocytes PT (11.1-14.7) Seconds INR APTT (22.3-36.8) Seconds Sodium Potassium Chloride Carbon Dioxide Anion Gap BUN Creatinine Estim Creat Clear Calc Estimated GFR 43 L Glucose Cancelled 118 H Lactic Acid 6.2 H* (0.7-2.0) mmol/L Calcium Cancelled 9.6 Total Bilirubin Cancelled AST ALT Alkaline Phosphatase Troponin I (0.000-0.034) ng/mL Total Protein Albumin Urine Color (Yellow) Urine Appearance (Clear) Urine pH (5.0-9.0) Ur Specific [place] (1.001-1.035) Urine Protein (Negative) mg/dL Urine Glucose (UA) (Negative) mg/dL Urine Ketones (Negative) mg/dL Ur Blood (Man) (Negative) Urine Nitrate (Negative) Urine Bilirubin (Negative) Urine Urobilinogen (<2.0) mg/dL Add Ur Microanalysis Leukocyte Esterase Rfl (Negative) SYDNEE/UL Urine RBC (0-2) /hpf Urine WBC (0-3) /hpf Ur Squamous Epith Cells (Few) /hpf Urine Bacteria /hpf Urine Casts Blood Type Antibody Screen Crossmatch 01/27/25 01/27/25 01/27/25 Range/Units 21:44 21:44 21:44 WBC (4.5-10.0) K/mm3 RBC (4.2-5.4) M/mm3 Hgb (12.0-15.0) g/dL Hct (37.0-47.0) % MCV (80-100) fl MCH (26-34) pg MCHC (32-36) g/dl RDW (11.5-14.5) % Plt Count (150-375) k/mm3 MPV (7.4-10.4) fl Immature Gran % (Auto) (0-0.5) % Neut % (Auto) (45.5-73.1) % Lymph % (Auto) (18.3-44.2) % [place] % (Auto) (2.6-8.5) % Eos % (Auto) (0-4.4) % Baso % (Auto) (0.2-1.2) % Lymph # (Auto) (0.9-3.2) K/mm3 [place] # (Auto) (0.1-0.6) K/mm3 Eos # (Auto) (0-0.3) K/mm3 Baso # (Auto) (0.0-0.1) K/mm3 Abs Immat Gran (auto) (0.00-0.031) K/mm3 Absolute Neuts (auto) (1.3-6.7) K/mm3 Absolute Nucleated RBC (0.0-0.012) K/mm3 Band Neutrophils % Nucleated RBC % (0.0-0.2) % Platelet Estimate (Adequate) Anisocytosis Macrocytosis (NORMAL) Schistocytes PT (11.1-14.7) Seconds INR APTT (22.3-36.8) Seconds Sodium Potassium Chloride Carbon Dioxide Anion Gap BUN Creatinine Estim Creat Clear Calc Estimated GFR Glucose Lactic Acid (0.7-2.0) mmol/L Calcium Total Bilirubin 2.2 H AST Cancelled 171 H ALT Cancelled 40 H Alkaline Phosphatase Cancelled Troponin I (0.000-0.034) ng/mL Total Protein Albumin Urine Color (Yellow) Urine Appearance (Clear) Urine pH (5.0-9.0) Ur Specific [place] (1.001-1.035) Urine Protein (Negative) mg/dL Urine Glucose (UA) (Negative) mg/dL Urine Ketones (Negative) mg/dL Ur Blood (Man) (Negative) Urine Nitrate (Negative) Urine Bilirubin (Negative) Urine Urobilinogen (<2.0) mg/dL Add Ur Microanalysis Leukocyte Esterase Rfl (Negative) SYDNEE/UL Urine RBC (0-2) /hpf Urine WBC (0-3) /hpf Ur Squamous Epith Cells (Few) /hpf Urine Bacteria /hpf Urine Casts Blood Type Antibody Screen Crossmatch 01/27/25 01/27/25 01/27/25 Range/Units 21:44 21:44 21:44 WBC (4.5-10.0) K/mm3 RBC (4.2-5.4) M/mm3 Hgb (12.0-15.0) g/dL Hct (37.0-47.0) % MCV (80-100) fl MCH (26-34) pg MCHC (32-36) g/dl RDW (11.5-14.5) % Plt Count (150-375) k/mm3 MPV (7.4-10.4) fl Immature Gran % (Auto) (0-0.5) % Neut % (Auto) (45.5-73.1) % Lymph % (Auto) (18.3-44.2) % [place] % (Auto) (2.6-8.5) % Eos % (Auto) (0-4.4) % Baso % (Auto) (0.2-1.2) % Lymph # (Auto) (0.9-3.2) K/mm3 [place] # (Auto) (0.1-0.6) K/mm3 Eos # (Auto) (0-0.3) K/mm3 Baso # (Auto) (0.0-0.1) K/mm3 Abs Immat Gran (auto) (0.00-0.031) K/mm3 Absolute Neuts (auto) (1.3-6.7) K/mm3 Absolute Nucleated RBC (0.0-0.012) K/mm3 Band Neutrophils % Nucleated RBC % (0.0-0.2) % Platelet Estimate (Adequate) Anisocytosis Macrocytosis (NORMAL) Schistocytes PT (11.1-14.7) Seconds INR APTT (22.3-36.8) Seconds Sodium Potassium Chloride Carbon Dioxide Anion Gap BUN Creatinine Estim Creat Clear Calc Estimated GFR Glucose Lactic Acid (0.7-2.0) mmol/L Calcium Total Bilirubin AST ALT Alkaline Phosphatase 108 Troponin I < 0.012 (0.000-0.034) ng/mL Total Protein Cancelled 6.6 Albumin Cancelled 2.7 L Urine Color (Yellow) Urine Appearance (Clear) Urine pH (5.0-9.0) Ur Specific [place] (1.001-1.035) Urine Protein (Negative) mg/dL Urine Glucose (UA) (Negative) mg/dL Urine Ketones (Negative) mg/dL Ur Blood (Man) (Negative) Urine Nitrate (Negative) Urine Bilirubin (Negative) Urine Urobilinogen (<2.0) mg/dL Add Ur Microanalysis Leukocyte Esterase Rfl (Negative) SYDNEE/UL Urine RBC (0-2) /hpf Urine WBC (0-3) /hpf Ur Squamous Epith Cells (Few) /hpf Urine Bacteria /hpf Urine Casts Blood Type A Positive Antibody Screen Negative Crossmatch See Detail 01/27/25 01/28/25 Range/Units 23:13 00:10 WBC (4.5-10.0) K/mm3 RBC (4.2-5.4) M/mm3 Hgb (12.0-15.0) g/dL Hct (37.0-47.0) % MCV (80-100) fl MCH (26-34) pg MCHC (32-36) g/dl RDW (11.5-14.5) % Plt Count (150-375) k/mm3 MPV (7.4-10.4) fl Immature Gran % (Auto) (0-0.5) % Neut % (Auto) (45.5-73.1) % Lymph % (Auto) (18.3-44.2) % [place] % (Auto) (2.6-8.5) % Eos % (Auto) (0-4.4) % Baso % (Auto) (0.2-1.2) % Lymph # (Auto) (0.9-3.2) K/mm3 [place] # (Auto) (0.1-0.6) K/mm3 Eos # (Auto) (0-0.3) K/mm3 Baso # (Auto) (0.0-0.1) K/mm3 Abs Immat Gran (auto) (0.00-0.031) K/mm3 Absolute Neuts (auto) (1.3-6.7) K/mm3 Absolute Nucleated RBC (0.0-0.012) K/mm3 Band Neutrophils % Nucleated RBC % (0.0-0.2) % Platelet Estimate (Adequate) Anisocytosis Macrocytosis (NORMAL) Schistocytes PT (11.1-14.7) Seconds INR APTT (22.3-36.8) Seconds Sodium Potassium Chloride Carbon Dioxide Anion Gap BUN Creatinine Estim Creat Clear Calc Estimated GFR Glucose Lactic Acid 3.8 H (0.7-2.0) mmol/L Calcium Total Bilirubin AST ALT Alkaline Phosphatase Troponin I (0.000-0.034) ng/mL Total Protein Albumin Urine Color Dark yellow (Yellow) Urine Appearance Cloudy H (Clear) Urine pH 6.0 (5.0-9.0) Ur Specific [place] 1.021 (1.001-1.035) Urine Protein Trace (Negative) mg/dL Urine Glucose (UA) Negative (Negative) mg/dL Urine Ketones Trace H (Negative) mg/dL Ur Blood (Man) Negative (Negative) Urine Nitrate Negative (Negative) Urine Bilirubin 1+ H (Negative) Urine Urobilinogen 1.0 (<2.0) mg/dL Add Ur Microanalysis Reviewed Leukocyte Esterase Rfl Trace H (Negative) SYDNEE/UL Urine RBC 0-2 (0-2) /hpf Urine WBC 6-10 H (0-3) /hpf Ur Squamous Epith Cells Occasional (Few) /hpf Urine Bacteria 4+ /hpf Urine Casts >20 Blood Type Antibody Screen Crossmatch <Camille Little PA-C - Last Filed: 01/28/25 02:31> Lab Results 01/27/25 01/27/25 01/27/25 Range/Units 21:44 21:44 21:44 WBC 15.6 H (4.5-10.0) K/mm3 RBC 2.65 L (4.2-5.4) M/mm3 Hgb 9.6 L D (12.0-15.0) g/dL Hct 29.7 L (37.0-47.0) % MCV 112.1 H (80-100) fl MCH 36.2 H (26-34) pg MCHC 32.3 (32-36) g/dl RDW 18.2 H (11.5-14.5) % Plt Count 239 (150-375) k/mm3 MPV 9.9 (7.4-10.4) fl Immature Gran % (Auto) 1.3 H (0-0.5) % Neut % (Auto) 62.0 (45.5-73.1) % Lymph % (Auto) 28.4 (18.3-44.2) % [place] % (Auto) 7.6 (2.6-8.5) % Eos % (Auto) 0.3 (0-4.4) % Baso % (Auto) 0.4 (0.2-1.2) % Lymph # (Auto) 4.44 H (0.9-3.2) K/mm3 [place] # (Auto) 1.2 H (0.1-0.6) K/mm3 Eos # (Auto) 0.1 (0-0.3) K/mm3 Baso # (Auto) 0.1 (0.0-0.1) K/mm3 Abs Immat Gran (auto) 0.20 H (0.00-0.031) K/mm3 Absolute Neuts (auto) 9.7 H (1.3-6.7) K/mm3 Absolute Nucleated RBC 0.020 H (0.0-0.012) K/mm3 Band Neutrophils % Not Reportable Nucleated RBC % 0.1 (0.0-0.2) % Platelet Estimate Adequate (Adequate) Anisocytosis 1+ Macrocytosis 1+ (NORMAL) Schistocytes None seen PT 18.8 H (11.1-14.7) Seconds INR 1.6 APTT 31.1 (22.3-36.8) Seconds Sodium Cancelled 135 L Potassium Cancelled 5.6 H Chloride Cancelled Carbon Dioxide Anion Gap BUN Creatinine Estim Creat Clear Calc Estimated GFR Glucose Lactic Acid (0.7-2.0) mmol/L Calcium Total Bilirubin AST ALT Alkaline Phosphatase Troponin I (0.000-0.034) ng/mL Total Protein Albumin Urine Color (Yellow) Urine Appearance (Clear) Urine pH (5.0-9.0) Ur Specific [place] (1.001-1.035) Urine Protein (Negative) mg/dL Urine Glucose (UA) (Negative) mg/dL Urine Ketones (Negative) mg/dL Ur Blood (Man) (Negative) Urine Nitrate (Negative) Urine Bilirubin (Negative) Urine Urobilinogen (<2.0) mg/dL Add Ur Microanalysis Leukocyte Esterase Rfl (Negative) SYDNEE/UL Urine RBC (0-2) /hpf Urine WBC (0-3) /hpf Ur Squamous Epith Cells (Few) /hpf Urine Bacteria /hpf Urine Casts Blood Type Antibody Screen Crossmatch 01/27/25 01/27/25 01/27/25 Range/Units 21:44 21:44 21:44 WBC (4.5-10.0) K/mm3 RBC (4.2-5.4) M/mm3 Hgb (12.0-15.0) g/dL Hct (37.0-47.0) % MCV (80-100) fl MCH (26-34) pg MCHC (32-36) g/dl RDW (11.5-14.5) % Plt Count (150-375) k/mm3 MPV (7.4-10.4) fl Immature Gran % (Auto) (0-0.5) % Neut % (Auto) (45.5-73.1) % Lymph % (Auto) (18.3-44.2) % [place] % (Auto) (2.6-8.5) % Eos % (Auto) (0-4.4) % Baso % (Auto) (0.2-1.2) % Lymph # (Auto) (0.9-3.2) K/mm3 [place] # (Auto) (0.1-0.6) K/mm3 Eos # (Auto) (0-0.3) K/mm3 Baso # (Auto) (0.0-0.1) K/mm3 Abs Immat Gran (auto) (0.00-0.031) K/mm3 Absolute Neuts (auto) (1.3-6.7) K/mm3 Absolute Nucleated RBC (0.0-0.012) K/mm3 Band Neutrophils % Nucleated RBC % (0.0-0.2) % Platelet Estimate (Adequate) Anisocytosis Macrocytosis (NORMAL) Schistocytes PT (11.1-14.7) Seconds INR APTT (22.3-36.8) Seconds Sodium Potassium Chloride 108 H Carbon Dioxide Cancelled 16 L Anion Gap Cancelled 11 BUN Cancelled Creatinine Estim Creat Clear Calc Estimated GFR Glucose Lactic Acid (0.7-2.0) mmol/L Calcium Total Bilirubin AST ALT Alkaline Phosphatase Troponin I (0.000-0.034) ng/mL Total Protein Albumin Urine Color (Yellow) Urine Appearance (Clear) Urine pH (5.0-9.0) Ur Specific [place] (1.001-1.035) Urine Protein (Negative) mg/dL Urine Glucose (UA) (Negative) mg/dL Urine Ketones (Negative) mg/dL Ur Blood (Man) (Negative) Urine Nitrate (Negative) Urine Bilirubin (Negative) Urine Urobilinogen (<2.0) mg/dL Add Ur Microanalysis Leukocyte Esterase Rfl (Negative) SYDNEE/UL Urine RBC (0-2) /hpf Urine WBC (0-3) /hpf Ur Squamous Epith Cells (Few) /hpf Urine Bacteria /hpf Urine Casts Blood Type Antibody Screen Crossmatch 01/27/25 01/27/25 01/27/25 Range/Units 21:44 21:44 21:44 WBC (4.5-10.0) K/mm3 RBC (4.2-5.4) M/mm3 Hgb (12.0-15.0) g/dL Hct (37.0-47.0) % MCV (80-100) fl MCH (26-34) pg MCHC (32-36) g/dl RDW (11.5-14.5) % Plt Count (150-375) k/mm3 MPV (7.4-10.4) fl Immature Gran % (Auto) (0-0.5) % Neut % (Auto) (45.5-73.1) % Lymph % (Auto) (18.3-44.2) % [place] % (Auto) (2.6-8.5) % Eos % (Auto) (0-4.4) % Baso % (Auto) (0.2-1.2) % Lymph # (Auto) (0.9-3.2) K/mm3 [place] # (Auto) (0.1-0.6) K/mm3 Eos # (Auto) (0-0.3) K/mm3 Baso # (Auto) (0.0-0.1) K/mm3 Abs Immat Gran (auto) (0.00-0.031) K/mm3 Absolute Neuts (auto) (1.3-6.7) K/mm3 Absolute Nucleated RBC (0.0-0.012) K/mm3 Band Neutrophils % Nucleated RBC % (0.0-0.2) % Platelet Estimate (Adequate) Anisocytosis Macrocytosis (NORMAL) Schistocytes PT (11.1-14.7) Seconds INR APTT (22.3-36.8) Seconds Sodium Potassium Chloride Carbon Dioxide Anion Gap BUN 47 H D Creatinine Cancelled 1.26 H Estim Creat Clear Calc Cancelled 66 Estimated GFR Cancelled Glucose Lactic Acid (0.7-2.0) mmol/L Calcium Total Bilirubin AST ALT Alkaline Phosphatase Troponin I (0.000-0.034) ng/mL Total Protein Albumin Urine Color (Yellow) Urine Appearance (Clear) Urine pH (5.0-9.0) Ur Specific [place] (1.001-1.035) Urine Protein (Negative) mg/dL Urine Glucose (UA) (Negative) mg/dL Urine Ketones (Negative) mg/dL Ur Blood (Man) (Negative) Urine Nitrate (Negative) Urine Bilirubin (Negative) Urine Urobilinogen (<2.0) mg/dL Add Ur Microanalysis Leukocyte Esterase Rfl (Negative) SYDNEE/UL Urine RBC (0-2) /hpf Urine WBC (0-3) /hpf Ur Squamous Epith Cells (Few) /hpf Urine Bacteria /hpf Urine Casts Blood Type Antibody Screen Crossmatch 01/27/25 01/27/25 01/27/25 Range/Units 21:44 21:44 21:44 WBC (4.5-10.0) K/mm3 RBC (4.2-5.4) M/mm3 Hgb (12.0-15.0) g/dL Hct (37.0-47.0) % MCV (80-100) fl MCH (26-34) pg MCHC (32-36) g/dl RDW (11.5-14.5) % Plt Count (150-375) k/mm3 MPV (7.4-10.4) fl Immature Gran % (Auto) (0-0.5) % Neut % (Auto) (45.5-73.1) % Lymph % (Auto) (18.3-44.2) % [place] % (Auto) (2.6-8.5) % Eos % (Auto) (0-4.4) % Baso % (Auto) (0.2-1.2) % Lymph # (Auto) (0.9-3.2) K/mm3 [place] # (Auto) (0.1-0.6) K/mm3 Eos # (Auto) (0-0.3) K/mm3 Baso # (Auto) (0.0-0.1) K/mm3 Abs Immat Gran (auto) (0.00-0.031) K/mm3 Absolute Neuts (auto) (1.3-6.7) K/mm3 Absolute Nucleated RBC (0.0-0.012) K/mm3 Band Neutrophils % Nucleated RBC % (0.0-0.2) % Platelet Estimate (Adequate) Anisocytosis Macrocytosis (NORMAL) Schistocytes PT (11.1-14.7) Seconds INR APTT (22.3-36.8) Seconds Sodium Potassium Chloride Carbon Dioxide Anion Gap BUN Creatinine Estim Creat Clear Calc Estimated GFR 43 L Glucose Cancelled 118 H Lactic Acid 6.2 H* (0.7-2.0) mmol/L Calcium Cancelled 9.6 Total Bilirubin Cancelled AST ALT Alkaline Phosphatase Troponin I (0.000-0.034) ng/mL Total Protein Albumin Urine Color (Yellow) Urine Appearance (Clear) Urine pH (5.0-9.0) Ur Specific [place] (1.001-1.035) Urine Protein (Negative) mg/dL Urine Glucose (UA) (Negative) mg/dL Urine Ketones (Negative) mg/dL Ur Blood (Man) (Negative) Urine Nitrate (Negative) Urine Bilirubin (Negative) Urine Urobilinogen (<2.0) mg/dL Add Ur Microanalysis Leukocyte Esterase Rfl (Negative) SYDNEE/UL Urine RBC (0-2) /hpf Urine WBC (0-3) /hpf Ur Squamous Epith Cells (Few) /hpf Urine Bacteria /hpf Urine Casts Blood Type Antibody Screen Crossmatch 01/27/25 01/27/25 01/27/25 Range/Units 21:44 21:44 21:44 WBC (4.5-10.0) K/mm3 RBC (4.2-5.4) M/mm3 Hgb (12.0-15.0) g/dL Hct (37.0-47.0) % MCV (80-100) fl MCH (26-34) pg MCHC (32-36) g/dl RDW (11.5-14.5) % Plt Count (150-375) k/mm3 MPV (7.4-10.4) fl Immature Gran % (Auto) (0-0.5) % Neut % (Auto) (45.5-73.1) % Lymph % (Auto) (18.3-44.2) % [place] % (Auto) (2.6-8.5) % Eos % (Auto) (0-4.4) % Baso % (Auto) (0.2-1.2) % Lymph # (Auto) (0.9-3.2) K/mm3 [place] # (Auto) (0.1-0.6) K/mm3 Eos # (Auto) (0-0.3) K/mm3 Baso # (Auto) (0.0-0.1) K/mm3 Abs Immat Gran (auto) (0.00-0.031) K/mm3 Absolute Neuts (auto) (1.3-6.7) K/mm3 Absolute Nucleated RBC (0.0-0.012) K/mm3 Band Neutrophils % Nucleated RBC % (0.0-0.2) % Platelet Estimate (Adequate) Anisocytosis Macrocytosis (NORMAL) Schistocytes PT (11.1-14.7) Seconds INR APTT (22.3-36.8) Seconds Sodium Potassium Chloride Carbon Dioxide Anion Gap BUN Creatinine Estim Creat Clear Calc Estimated GFR Glucose Lactic Acid (0.7-2.0) mmol/L Calcium Total Bilirubin 2.2 H AST Cancelled 171 H ALT Cancelled 40 H Alkaline Phosphatase Cancelled Troponin I (0.000-0.034) ng/mL Total Protein Albumin Urine Color (Yellow) Urine Appearance (Clear) Urine pH (5.0-9.0) Ur Specific [place] (1.001-1.035) Urine Protein (Negative) mg/dL Urine Glucose (UA) (Negative) mg/dL Urine Ketones (Negative) mg/dL Ur Blood (Man) (Negative) Urine Nitrate (Negative) Urine Bilirubin (Negative) Urine Urobilinogen (<2.0) mg/dL Add Ur Microanalysis Leukocyte Esterase Rfl (Negative) SYDNEE/UL Urine RBC (0-2) /hpf Urine WBC (0-3) /hpf Ur Squamous Epith Cells (Few) /hpf Urine Bacteria /hpf Urine Casts Blood Type Antibody Screen Crossmatch 01/27/25 01/27/25 01/27/25 Range/Units 21:44 21:44 21:44 WBC (4.5-10.0) K/mm3 RBC (4.2-5.4) M/mm3 Hgb (12.0-15.0) g/dL Hct (37.0-47.0) % MCV (80-100) fl MCH (26-34) pg MCHC (32-36) g/dl RDW (11.5-14.5) % Plt Count (150-375) k/mm3 MPV (7.4-10.4) fl Immature Gran % (Auto) (0-0.5) % Neut % (Auto) (45.5-73.1) % Lymph % (Auto) (18.3-44.2) % [place] % (Auto) (2.6-8.5) % Eos % (Auto) (0-4.4) % Baso % (Auto) (0.2-1.2) % Lymph # (Auto) (0.9-3.2) K/mm3 [place] # (Auto) (0.1-0.6) K/mm3 Eos # (Auto) (0-0.3) K/mm3 Baso # (Auto) (0.0-0.1) K/mm3 Abs Immat Gran (auto) (0.00-0.031) K/mm3 Absolute Neuts (auto) (1.3-6.7) K/mm3 Absolute Nucleated RBC (0.0-0.012) K/mm3 Band Neutrophils % Nucleated RBC % (0.0-0.2) % Platelet Estimate (Adequate) Anisocytosis Macrocytosis (NORMAL) Schistocytes PT (11.1-14.7) Seconds INR APTT (22.3-36.8) Seconds Sodium Potassium Chloride Carbon Dioxide Anion Gap BUN Creatinine Estim Creat Clear Calc Estimated GFR Glucose Lactic Acid (0.7-2.0) mmol/L Calcium Total Bilirubin AST ALT Alkaline Phosphatase 108 Troponin I < 0.012 (0.000-0.034) ng/mL Total Protein Cancelled 6.6 Albumin Cancelled 2.7 L Urine Color (Yellow) Urine Appearance (Clear) Urine pH (5.0-9.0) Ur Specific [place] (1.001-1.035) Urine Protein (Negative) mg/dL Urine Glucose (UA) (Negative) mg/dL Urine Ketones (Negative) mg/dL Ur Blood (Man) (Negative) Urine Nitrate (Negative) Urine Bilirubin (Negative) Urine Urobilinogen (<2.0) mg/dL Add Ur Microanalysis Leukocyte Esterase Rfl (Negative) SYDNEE/UL Urine RBC (0-2) /hpf Urine WBC (0-3) /hpf Ur Squamous Epith Cells (Few) /hpf Urine Bacteria /hpf Urine Casts Blood Type A Positive Antibody Screen Negative Crossmatch See Detail 01/27/25 01/28/25 Range/Units 23:13 00:10 WBC (4.5-10.0) K/mm3 RBC (4.2-5.4) M/mm3 Hgb (12.0-15.0) g/dL Hct (37.0-47.0) % MCV (80-100) fl MCH (26-34) pg MCHC (32-36) g/dl RDW (11.5-14.5) % Plt Count (150-375) k/mm3 MPV (7.4-10.4) fl Immature Gran % (Auto) (0-0.5) % Neut % (Auto) (45.5-73.1) % Lymph % (Auto) (18.3-44.2) % [place] % (Auto) (2.6-8.5) % Eos % (Auto) (0-4.4) % Baso % (Auto) (0.2-1.2) % Lymph # (Auto) (0.9-3.2) K/mm3 [place] # (Auto) (0.1-0.6) K/mm3 Eos # (Auto) (0-0.3) K/mm3 Baso # (Auto) (0.0-0.1) K/mm3 Abs Immat Gran (auto) (0.00-0.031) K/mm3 Absolute Neuts (auto) (1.3-6.7) K/mm3 Absolute Nucleated RBC (0.0-0.012) K/mm3 Band Neutrophils % Nucleated RBC % (0.0-0.2) % Platelet Estimate (Adequate) Anisocytosis Macrocytosis (NORMAL) Schistocytes PT (11.1-14.7) Seconds INR APTT (22.3-36.8) Seconds Sodium Potassium Chloride Carbon Dioxide Anion Gap BUN Creatinine Estim Creat Clear Calc Estimated GFR Glucose Lactic Acid 3.8 H (0.7-2.0) mmol/L Calcium Total Bilirubin AST ALT Alkaline Phosphatase Troponin I (0.000-0.034) ng/mL Total Protein Albumin Urine Color Dark yellow (Yellow) Urine Appearance Cloudy H (Clear) Urine pH 6.0 (5.0-9.0) Ur Specific [place] 1.021 (1.001-1.035) Urine Protein Trace (Negative) mg/dL Urine Glucose (UA) Negative (Negative) mg/dL Urine Ketones Trace H (Negative) mg/dL Ur Blood (Man) Negative (Negative) Urine Nitrate Negative (Negative) Urine Bilirubin 1+ H (Negative) Urine Urobilinogen 1.0 (<2.0) mg/dL Add Ur Microanalysis Reviewed Leukocyte Esterase Rfl Trace H (Negative) SYDNEE/UL Urine RBC 0-2 (0-2) /hpf Urine WBC 6-10 H (0-3) /hpf Ur Squamous Epith Cells Occasional (Few) /hpf Urine Bacteria 4+ /hpf Urine Casts >20 Blood Type Antibody Screen Crossmatch <Stu Puga MD - Last Filed: 01/27/25 22:42> Discharge Plan Discharge Clinical Impression: Acute upper GI bleed, Abnormal CT of liver, Rectal varices Esophageal varices Qualifiers: Esophageal varices type: unspecified type Esophageal varices bleeding: with bleeding Qualified Code(s): I85.01 - Esophageal varices with bleeding Ascites Qualifiers: Ascites type: other type Qualified Code(s): R18.8 - Other ascites <Camille Little PA-C - Last Filed: 01/28/25 02:31> Patient Disposition: Still a Patient <Camille Little PA-C - Last Filed: 01/28/25 02:31> Condition: Serious <Camille Little PA-C - Last Filed: 01/28/25 02:31> Patient Language: Thai <Camille Little PA-C - Last Filed: 01/28/25 02:31> Prescriptions: No Action phenazopyridine [Pyridium] 200 mg tablet 200 mg PO TID Qty: 6 0RF <Camille Little PA-C - Last Filed: 01/28/25 02:31> Follow-up/Referrals: Pendegraft,PREMA Hemphill [Primary Care Provider] - <Camille Little PA-C - Last Filed: 01/28/25 02:31>
[2025-01-27] MEDS: PANTOPRAZOLE SODIUM IV 40 MG VIAL 80 MG IV PUSH (21:45)
[2025-01-27] MEDS: OCTREOTIDE ACETATE 50 MCG/ML VIAL IV PUSH (21:51)
[2025-01-27 21:54] LABS: Hematocrit 29.7 % (37.0-47.0); Hemoglobin 9.6 g/dL (12.0-15.0); Immature Granulocyte Percent A 1.3 % (0-0.5); Lymphocytes Absolute Auto 4.44 K/mm3 (0.9-3.2); Mean Corpuscular HGB Conc 32.3 g/dl (32-36); Mean Corpuscular Hemoglobin 36.2 pg (26-34); Mean Corpuscular Volume 112.1 fl (80-100); Nucleated Red Blood Cells Absolute Auto 0.020 K/mm3 (0.0-0.012); Nucleated Red Blood Cells Perc 0.1 % (0.0-0.2); Platelet Count Result 239 k/mm3 (150-375); Red Blood Count 2.65 M/mm3 (4.2-5.4); White Blood Count 15.6 K/mm3 (4.5-10.0)
--- NOTE | 2025-01-27 22:02 | PC.NURSE ---
ERP in room placin ART line.
--- NOTE | 2025-01-27 22:05 | PC.NURSE ---
ART placed by ERP in right wrist.
--- NOTE | 2025-01-27 22:10 | PC.NURSE ---
1st Unit of blood started on pressure bag.
[2025-01-27 22:18] LABS: Anisocytosis 1+; Macrocytosis 1+ (NORMAL); Schistocytes None Seen
[2025-01-27] MEDS: VASOPRESSIN INJ 100 UNITS in DEXTROSE 5% 95 ML IV CONT (22:19)
[2025-01-27 22:23] LABS: Alanine Aminotransferase 40 U/L (6-35); Albumin Level 2.7 g/dL (3.5-5.1); Alkaline Phosphatase 108 U/L (38-126); Anion Gap 11 mmol/L (4-12); Aspartate Amino Transferase 171 U/L (14-36); Bilirubin,Total 2.2 mg/dL (0.2-1.3); Blood Urea Nitrogen 47 mg/dL (7-17); Calcium 9.6 mg/dL (8.4-10.2); Carbon Dioxide 16 mmol/L (22-30); Chloride 108 mmol/L (98-107); Estimated CRCL calculation 66 ml/min; Estimated Glomerular Filt Rate 43; Glucose 118 mg/dL (65-110); INR 1.6; Potassium 5.6 mmol/L (3.4-5.0); Prothrombin Time 18.8 Seconds (11.1-14.7); Sodium 135 mmol/L (137-145); Total Protein 6.6 g/dL (6.3-8.2)
[2025-01-27 22:24] LABS: Partial Thromboplastin Time 31.1 Seconds (22.3-36.8)
--- NOTE | 2025-01-27 22:27 | PC.NURSE ---
1st unit of blood completed. 2nd unit started.
--- NOTE | 2025-01-27 22:27 | PC.NURSE ---
central line placed by ERP in right jugular in neck.
[2025-01-27 22:30] LABS: Troponin I < 0.012 ng/mL (0.000-0.034)
[2025-01-27] MEDS: OCTREOTIDE ACETATE 500 MCG in SODIUM CHLORIDE 0.9% IV 99 ML 10 MCG IV CONT (22:31)
[2025-01-27] MEDS: TUBING, BLOOD SET 1 EACH XX (22:31)
[2025-01-27] MEDS: PANTOPRAZOLE SODIUM IV 80 MG in SODIUM CHLORIDE 0.9% IV 500 ML 50 MG IV CONT (22:31)
--- NOTE | 2025-01-27 22:35 | PC.NURSE ---
Addendum entered by Kanchan Hale RN 01/28/25 05:40: Alejo catheter placed. Original Note: patient cleaned up from bowel movement. Bedsheets and gown changed. Rectal alejo placed.
[2025-01-27] MEDS: cefTRIAXone 1 GM in SODIUM CHLORIDE 0.9% IV 50 ML 100 ML IVPB (22:53)
[2025-01-27] MEDS: SODIUM CHLORIDE 0.9% IV 250 ML 30 ML IV CONT (22:54)
--- NOTE | 2025-01-27 23:00 | PC.NURSE ---
Patient to CT scan with RN.
--- NOTE | 2025-01-27 23:30 | PC.NURSE ---
Patient back from CT.
[2025-01-27 23:42] LABS: Add Urine Microscopic? YES; Appearance Urine Cloudy (Clear); Glucose Urine UA Negative (Negative); Leukocyte Esterase Ur Trace LEU/UL (Negative); Need Manual Microscopic Reviewed; Nitrate Urine Negative (Negative); Non Pathogenic Casts >20; Specific Grav Ur 1.021 (1.001-1.035)
[2025-01-28] VITALS (58 sets, daily range): BP systolic 76–168; BP diastolic 43–87; PULSE 68–120; RESP 10–29; TEMP 36.3–37.3; O2SAT 92–100; BMI 50.5
[2025-01-28] MEDS: SODIUM CHLORIDE 0.9% IV 1,000 ML 999 ML IV CONT (00:08)
[2025-01-28] MEDS: MORPHINE SULFATE (*CRX) 4 MG/ML INJ IV PUSH (00:23)
--- NOTE | 2025-01-28 00:23 | PC.NURSE ---
Patient complaining of severe abdominal pain. Patient's BP has increased. ERP made aware. Morphine ordered.
[2025-01-28] MEDS: HYDROmorphone HCL INJ (*CRX) 2 MG/ML VIAL 0.5 MG IV PUSH (01:23)
--- NOTE | 2025-01-28 01:23 | PC.NURSE ---
patient continues to complain of pain. ERP made aware. Dilaudid ordered.
--- NOTE | 2025-01-28 01:57 | P.HP_ITS ---
H&P: HPI History of Present Illness Date/Time: 01/28/25 01:57 Chief Complaint: Rectal bleeding Narrative: 64-year-old female with a past medical history of psychiatric disorder, prior alcoholism with alcoholic cirrhosis who presented to the ER from [facility] via EMS due to rectal bleeding. The patient was getting into the shower when they noticed that the patient was bleeding from the rectum. The patient had evidently been complaining of abdominal pain all day. Patient was able to tell the ER staff that she was having epigastric abdominal pain. The patient had reported to the ER provider that she had a colonoscopy in 2010 but does not know the results. She denied any history of prior endoscopy. However at time of my evaluation the patient is only alert oriented times 1-2. The patient had prior CT March 2024 when she presented to the ER for urinary symptoms which noted cirrhosis, cholecystitis, periumbilical portal caval shunt and old compression fracture. CTA of the abdomen pelvis today demonstrated borderline enlarged liver, nodular liver with multiple areas of abnormal attenuation suspicious for malignancy, gallstones, bilateral small kidneys with atrophy, rectal tube in the rectum with multiple areas of increased attenuation consistent with acute hemorrhage, cavernous transformation of the portal vein, umbilical varices noted, esophageal varices noted, anterior rectal varices noted within the deep pelvis with new ascites compared to prior exam. Radiology states that the findings within the rectum could be secondary to anterior rectal varices. However patient had NG tube placed in the ER which drained maroon blood suggesting esophageal or gastric varices is most likely cause for the patient's GI bleeding. At the time my evaluation patient did have a rectal tube in place but there was no stool within the fecal management system and the patient had large amount of liquid melenic stool in the bed. Patient was unable to provide any meaningful history at the time of my evaluation. She did receive 2 units of packed red blood cells in the ER. She was having hypotension in the ER and subsequently had a right IJ placed and a right radial art line placed by ER provider. The patient had been started on vasopressin in the ER. She received 1 L of fluid and 1 dose of Rocephin 1 g. Patient received 2 units packed red blood cells. Review of Systems 2 Review of Systems: Review of systems unobtainable due to patient's confusion PMFSH Past Medical History Medical History Compression fracture of L2 T12 compression fracture Compression fracture of T11 vertebra Compression fracture of L1 lumbar vertebra Portal venous hypertension Alcoholic cirrhosis Alcoholism in recovery Surgical History Surgical History (Updated 01/28/25 @ 02:18 by Gabriela Mckeon DO) Surgical history unknown Family History Family History (Updated 01/28/25 @ 02:18 by Gabriela Mckeon DO) Other Unknown family medical history Social History Social History (Updated 01/28/25 @ 02:19 by Gabriela Mckeon DO) Social History: Patient resides at [facility]. She has a history of alcohol abuse in recovery. Code status: Full code Meds Home Medications and Allergies Home Medications ?Medication ?Instructions ?Recorded ?Confirmed ?Type phenazopyridine 200 mg tablet 200 mg PO TID 6 doses #6 tabs 04/08/24 Rx (Pyridium) Allergies Allergy/AdvReac Type Severity Reaction Status Date / Time ziprasidone (From [place]) Allergy Anaphylaxis Verified 04/08/24 17:11 NSAIDS (Non-Steroidal AdvReac Ulcers Verified 04/08/24 17:11 Anti-Inflamma Vital Signs Vital Signs - 24 hr 01/27/25 21:08 01/27/25 21:19 01/27/25 22:06 Temperature 98.0 F Pulse Rate 105 H 72 104 H Respiratory Rate 14 15 20 Blood Pressure 129/61 129/61 84/53 L Pulse Oximetry 99 95 98 Oxygen Delivery Room Air 01/27/25 22:15 01/27/25 22:19 01/27/25 22:22 Temperature 98.9 F Pulse Rate 91 95 96 Respiratory Rate 18 18 Blood Pressure 115/89 92/54 L 86/54 L Pulse Oximetry 99 98 Oxygen Delivery 01/27/25 22:30 01/28/25 00:00 01/28/25 00:25 Temperature Pulse Rate 90 91 Respiratory Rate 18 18 Blood Pressure 103/59 L 162/81 H 153/84 H Pulse Oximetry 98 99 Oxygen Delivery 01/28/25 01:24 Temperature Pulse Rate 98 Respiratory Rate 18 Blood Pressure 120/82 Pulse Oximetry 99 Oxygen Delivery Exam 2 Narrative: Weight 155.1 kg BMI 50.5 Const: Other: Morbidly obese, acutely ill-appearing, agitated and restless and difficult to redirect HENMT: Other: Head is normocephalic atraumatic, mucous membranes are tacky, crowded posterior oropharynx, right NG tube present with maroon drainage Eyes: Other: Pupils are equal and reactive, positive conjunctival pallor, mild scleral icterus noted Neck: Other: Large neck circumference, no lymphadenopathy, no JVD Resp: Other: Regular rate, regular rhythm, 2+ bilateral radial pedal pulses Cardio: Other: Sinus tachycardia, 2 no murmur, no JVD GI: Other: Distended, tense, no fluid wave, generalized discomfort on palpation : Other: Simon catheter in place with clear yellow urine Back/Spine/Pelvis: Other: Incontinent of melenic stool rectal tube in place but no stool within the fecal management system Skin: Other: Generalized pallor, non jaundice, chronic skin changes to bilateral lower extremities consistent with peripheral vascular disease and or venous stasis dermatitis Neuro: Other: Patient is alert oriented person it is unclear whether she realized that she is in the hospital or not she states she does not know the month or year and cannot tell me why she is in the hospital, she is moving all extremities equally and localizing to pain Extrem: Other: No cyanosis, no pitting edema, moves all extremities equally Psych: Other: Agitated, restless, difficult to redirect, poor judgment and insight H&P: Results Labs Labs: Laboratory Tests 01/27/25 21:44 01/27/25 01/27/25 01/27/25 21:44 21:44 21:44 WBC 15.6 H RBC 2.65 L Hgb 9.6 L D Hct 29.7 L MCV 112.1 H MCH 36.2 H MCHC 32.3 RDW 18.2 H Plt Count 239 MPV 9.9 Immature Gran % (Auto) 1.3 H Neut % (Auto) 62.0 Lymph % (Auto) 28.4 [place] % (Auto) 7.6 Eos % (Auto) 0.3 Baso % (Auto) 0.4 Lymph # (Auto) 4.44 H [place] # (Auto) 1.2 H Eos # (Auto) 0.1 Baso # (Auto) 0.1 Abs Immat Gran (auto) 0.20 H Absolute Neuts (auto) 9.7 H Absolute Nucleated RBC 0.020 H Band Neutrophils % Not Reportable Nucleated RBC % 0.1 Platelet Estimate Adequate Anisocytosis 1+ Macrocytosis 1+ Schistocytes None seen PT 18.8 H INR 1.6 APTT 31.1 Fibrinogen D-Dimer Sodium Cancelled 135 L Potassium Cancelled 5.6 H Chloride Cancelled Carbon Dioxide Anion Gap BUN Creatinine Estim Creat Clear Calc Estimated GFR Glucose Lactic Acid Calcium Total Bilirubin AST ALT Alkaline Phosphatase Troponin I Total Protein Albumin Urine Color Urine Appearance Urine pH Ur Specific [place] Urine Protein Urine Glucose (UA) Urine Ketones Ur Blood (Man) Urine Nitrate Urine Bilirubin Urine Urobilinogen Add Ur Microanalysis Leukocyte Esterase Rfl Urine RBC Urine WBC Ur Squamous Epith Cells Urine Bacteria Urine Casts Nasal MRSA (PCR) Blood Type Antibody Screen Crossmatch 01/27/25 01/27/25 01/27/25 21:44 21:44 21:44 WBC RBC Hgb Hct MCV MCH MCHC RDW Plt Count MPV Immature Gran % (Auto) Neut % (Auto) Lymph % (Auto) [place] % (Auto) Eos % (Auto) Baso % (Auto) Lymph # (Auto) [place] # (Auto) Eos # (Auto) Baso # (Auto) Abs Immat Gran (auto) Absolute Neuts (auto) Absolute Nucleated RBC Band Neutrophils % Nucleated RBC % Platelet Estimate Anisocytosis Macrocytosis Schistocytes PT INR APTT Fibrinogen D-Dimer Sodium Potassium Chloride 108 H Carbon Dioxide Cancelled 16 L Anion Gap Cancelled 11 BUN Cancelled Creatinine Estim Creat Clear Calc Estimated GFR Glucose Lactic Acid Calcium Total Bilirubin AST ALT Alkaline Phosphatase Troponin I Total Protein Albumin Urine Color Urine Appearance Urine pH Ur Specific [place] Urine Protein Urine Glucose (UA) Urine Ketones Ur Blood (Man) Urine Nitrate Urine Bilirubin Urine Urobilinogen Add Ur Microanalysis Leukocyte Esterase Rfl Urine RBC Urine WBC Ur Squamous Epith Cells Urine Bacteria Urine Casts Nasal MRSA (PCR) Blood Type Antibody Screen Crossmatch 01/27/25 01/27/25 01/27/25 21:44 21:44 21:44 WBC RBC Hgb Hct MCV MCH MCHC RDW Plt Count MPV Immature Gran % (Auto) Neut % (Auto) Lymph % (Auto) [place] % (Auto) Eos % (Auto) Baso % (Auto) Lymph # (Auto) [place] # (Auto) Eos # (Auto) Baso # (Auto) Abs Immat Gran (auto) Absolute Neuts (auto) Absolute Nucleated RBC Band Neutrophils % Nucleated RBC % Platelet Estimate Anisocytosis Macrocytosis Schistocytes PT INR APTT Fibrinogen D-Dimer Sodium Potassium Chloride Carbon Dioxide Anion Gap BUN 47 H D Creatinine Cancelled 1.26 H Estim Creat Clear Calc Cancelled 66 Estimated GFR Cancelled Glucose Lactic Acid Calcium Total Bilirubin AST ALT Alkaline Phosphatase Troponin I Total Protein Albumin Urine Color Urine Appearance Urine pH Ur Specific [place] Urine Protein Urine Glucose (UA) Urine Ketones Ur Blood (Man) Urine Nitrate Urine Bilirubin Urine Urobilinogen Add Ur Microanalysis Leukocyte Esterase Rfl Urine RBC Urine WBC Ur Squamous Epith Cells Urine Bacteria Urine Casts Nasal MRSA (PCR) Blood Type Antibody Screen Crossmatch 01/27/25 01/27/25 01/27/25 21:44 21:44 21:44 WBC RBC Hgb Hct MCV MCH MCHC RDW Plt Count MPV Immature Gran % (Auto) Neut % (Auto) Lymph % (Auto) [place] % (Auto) Eos % (Auto) Baso % (Auto) Lymph # (Auto) [place] # (Auto) Eos # (Auto) Baso # (Auto) Abs Immat Gran (auto) Absolute Neuts (auto) Absolute Nucleated RBC Band Neutrophils % Nucleated RBC % Platelet Estimate Anisocytosis Macrocytosis Schistocytes PT INR APTT Fibrinogen D-Dimer Sodium Potassium Chloride Carbon Dioxide Anion Gap BUN Creatinine Estim Creat Clear Calc Estimated GFR 43 L Glucose Cancelled 118 H Lactic Acid 6.2 H* Calcium Cancelled 9.6 Total Bilirubin Cancelled AST ALT Alkaline Phosphatase Troponin I Total Protein Albumin Urine Color Urine Appearance Urine pH Ur Specific [place] Urine Protein Urine Glucose (UA) Urine Ketones Ur Blood (Man) Urine Nitrate Urine Bilirubin Urine Urobilinogen Add Ur Microanalysis Leukocyte Esterase Rfl Urine RBC Urine WBC Ur Squamous Epith Cells Urine Bacteria Urine Casts Nasal MRSA (PCR) Blood Type Antibody Screen Crossmatch 01/27/25 01/27/25 01/27/25 21:44 21:44 21:44 WBC RBC Hgb Hct MCV MCH MCHC RDW Plt Count MPV Immature Gran % (Auto) Neut % (Auto) Lymph % (Auto) [place] % (Auto) Eos % (Auto) Baso % (Auto) Lymph # (Auto) [place] # (Auto) Eos # (Auto) Baso # (Auto) Abs Immat Gran (auto) Absolute Neuts (auto) Absolute Nucleated RBC Band Neutrophils % Nucleated RBC % Platelet Estimate Anisocytosis Macrocytosis Schistocytes PT INR APTT Fibrinogen D-Dimer Sodium Potassium Chloride Carbon Dioxide Anion Gap BUN Creatinine Estim Creat Clear Calc Estimated GFR Glucose Lactic Acid Calcium Total Bilirubin 2.2 H AST Cancelled 171 H ALT Cancelled 40 H Alkaline Phosphatase Cancelled Troponin I Total Protein Albumin Urine Color Urine Appearance Urine pH Ur Specific [place] Urine Protein Urine Glucose (UA) Urine Ketones Ur Blood (Man) Urine Nitrate Urine Bilirubin Urine Urobilinogen Add Ur Microanalysis Leukocyte Esterase Rfl Urine RBC Urine WBC Ur Squamous Epith Cells Urine Bacteria Urine Casts Nasal MRSA (PCR) Blood Type Antibody Screen Crossmatch 01/27/25 01/27/25 01/27/25 21:44 21:44 21:44 WBC RBC Hgb Hct MCV MCH MCHC RDW Plt Count MPV Immature Gran % (Auto) Neut % (Auto) Lymph % (Auto) [place] % (Auto) Eos % (Auto) Baso % (Auto) Lymph # (Auto) [place] # (Auto) Eos # (Auto) Baso # (Auto) Abs Immat Gran (auto) Absolute Neuts (auto) Absolute Nucleated RBC Band Neutrophils % Nucleated RBC % Platelet Estimate Anisocytosis Macrocytosis Schistocytes PT INR APTT Fibrinogen D-Dimer Sodium Potassium Chloride Carbon Dioxide Anion Gap BUN Creatinine Estim Creat Clear Calc Estimated GFR Glucose Lactic Acid Calcium Total Bilirubin AST ALT Alkaline Phosphatase 108 Troponin I < 0.012 Total Protein Cancelled 6.6 Albumin Cancelled 2.7 L Urine Color Urine Appearance Urine pH Ur Specific [place] Urine Protein Urine Glucose (UA) Urine Ketones Ur Blood (Man) Urine Nitrate Urine Bilirubin Urine Urobilinogen Add Ur Microanalysis Leukocyte Esterase Rfl Urine RBC Urine WBC Ur Squamous Epith Cells Urine Bacteria Urine Casts Nasal MRSA (PCR) Blood Type A Positive Antibody Screen Negative Crossmatch See Detail 01/27/25 01/28/25 01/28/25 23:13 00:10 02:06 WBC Pending RBC Pending Hgb Pending Hct Pending MCV Pending MCH Pending MCHC Pending RDW Pending Plt Count Pending MPV Pending Immature Gran % (Auto) Pending Neut % (Auto) Pending Lymph % (Auto) Pending [place] % (Auto) Pending Eos % (Auto) Pending Baso % (Auto) Pending Lymph # (Auto) Pending [place] # (Auto) Pending Eos # (Auto) Pending Baso # (Auto) Pending Abs Immat Gran (auto) Pending Absolute Neuts (auto) Pending Absolute Nucleated RBC Pending Band Neutrophils % Nucleated RBC % Pending Platelet Estimate Anisocytosis Macrocytosis Schistocytes PT INR APTT Fibrinogen Pending D-Dimer Pending Sodium Potassium Chloride Carbon Dioxide Anion Gap BUN Creatinine Estim Creat Clear Calc Estimated GFR Glucose Lactic Acid 3.8 H Calcium Total Bilirubin AST ALT Alkaline Phosphatase Troponin I Total Protein Albumin Urine Color Dark yellow Urine Appearance Cloudy H Urine pH 6.0 Ur Specific [place] 1.021 Urine Protein Trace Urine Glucose (UA) Negative Urine Ketones Trace H Ur Blood (Man) Negative Urine Nitrate Negative Urine Bilirubin 1+ H Urine Urobilinogen 1.0 Add Ur Microanalysis Reviewed Leukocyte Esterase Rfl Trace H Urine RBC 0-2 Urine WBC 6-10 H Ur Squamous Epith Cells Occasional Urine Bacteria 4+ Urine Casts >20 Nasal MRSA (PCR) Blood Type Antibody Screen Crossmatch 01/28/25 02:11 WBC RBC Hgb Hct MCV MCH MCHC RDW Plt Count MPV Immature Gran % (Auto) Neut % (Auto) Lymph % (Auto) [place] % (Auto) Eos % (Auto) Baso % (Auto) Lymph # (Auto) [place] # (Auto) Eos # (Auto) Baso # (Auto) Abs Immat Gran (auto) Absolute Neuts (auto) Absolute Nucleated RBC Band Neutrophils % Nucleated RBC % Platelet Estimate Anisocytosis Macrocytosis Schistocytes PT INR APTT Fibrinogen D-Dimer Sodium Potassium Chloride Carbon Dioxide Anion Gap BUN Creatinine Estim Creat Clear Calc Estimated GFR Glucose Lactic Acid Calcium Total Bilirubin AST ALT Alkaline Phosphatase Troponin I Total Protein Albumin Urine Color Urine Appearance Urine pH Ur Specific [place] Urine Protein Urine Glucose (UA) Urine Ketones Ur Blood (Man) Urine Nitrate Urine Bilirubin Urine Urobilinogen Add Ur Microanalysis Leukocyte Esterase Rfl Urine RBC Urine WBC Ur Squamous Epith Cells Urine Bacteria Urine Casts Nasal MRSA (PCR) Pending Blood Type Antibody Screen Crossmatch Impressions Abdomen X-Ray 01/27/25 22:55 IMPRESSION: Nasogastric tube in good position and ready for immediate use. Chest X-Ray 01/27/25 22:56 IMPRESSION: No focal infiltrate or effusion. Right internal jugular central venous catheter in good position and ready for immediate use. Abdomen/Pelvis CTA 01/28/25 00:08 IMPRESSION: Findings within the liver for which malignancy is suspected. Additional findings within the rectum for which acute hemorrhage is suspected (likely secondary to anorectal varices). No findings to suggest upper GI bleeding. 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 Incidental notation is made of cholelithiasis. EKG: Assessment and Plan Assessment and plan (1) Hemorrhagic shock: Code(s): R57.8 - Other shock Status: Acute (2) Acute upper GI bleed: Code(s): K92.2 - Gastrointestinal hemorrhage, unspecified Status: Acute (3) Esophageal varices: Qualifiers: Esophageal varices bleeding: with bleeding Esophageal varices type: u nspecified type Qualified Code(s): I85.01 - Esophageal varices with bleeding Code(s): I85.00 - Esophageal varices without bleeding Status: Acute (4) Alcoholic cirrhosis of liver with ascites: Code(s): K70.31 - Alcoholic cirrhosis of liver with ascites Status: Acute (5) Abnormal CT of liver: Code(s): R93.2 - Abnormal findings on diagnostic imaging of liver and biliary tract Status: Acute (6) Rectal varices: Code(s): K64.9 - Unspecified hemorrhoids Status: Acute Plan Patient presents with melenic stools is found to have upper GI bleed likely due to varices given imaging findings. Patient was started on octreotide and Protonix in the ER. Gastroenterology was consulted. Patient received 2 O- negative blood in the ER and was typed and screened. She was hypotensive subsequently a right IJ was placed and patient has been placed on vasopressin. A right radial radial art line was placed for more accurate blood pressure monitoring. An NG tube was placed which demonstrated maroon aspirate consistent with acute upper GI bleed. Imaging suggested possible rectal variceal bleeding but given the colonic appearance to the patient's stool and the large amount of blood in the NG upper GI causes more likely. Patient will be admitted to the ICU and monitored closely with frequent evaluation of hemoglobin and transfuse as needed for hemodynamic stability. Will continue IV fluid hydration. Repeat CBC is been ordered and is pending. Await further recommendations from Gastroenterology and entry rep. Patient also has ascites and with her generalized abdominal pain could have some component of SBP. Patient is encephalopathic it is unclear if this is due to her psychiatric illness or what her normal baseline is. Hepatic encephalopathy encephalopathy could be due to hepatic encephalopathy, SBP were psychosis. Will treat with 2 g Rocephin daily possible SBP. Will obtain blood cultures. Patient did have significant lactic acidosis which has improved but some has persisted somewhat. Some of this could be due to hemorrhagic shock but some component also may be due to her chronic liver disease will monitor. 40 minute spent in critical care activities. Due to a high probability of clinically significant, life threatening deterioration, the patient required my highest level of preparedness to intervene emergently and I personally spent this critical care time directly and personally managing the patient. This critical care time included obtaining a history; examining the patient; pulse oximetry; ordering and review of studies; arranging urgent treatment with development of a management plan; evaluation of patient's response to treatment; frequent reassessment; and discussions with other providers. It was exclusive of separately billable procedures and treating other patients and teaching time. Please see Assessment and Plan section and the rest of the note for further information on patient assessment and treatment. Quality VTE Prophylaxis VTE prophylaxis: mechanical ordered (SCDs) Hospitalist MIPS Advance Care Plan I have confirmed that the patient's Advanced Care Plan is present, code status is documented, or surrogate decision maker is listed in patient medical record.: Yes Medication Reconciliation I have utilized all available resources to obtain, update and review the patients current medications (includes all prescriptions, OTC, herbals, cannabis, and nutritional supplements).: Yes
--- NOTE | 2025-01-28 02:00 | PC.NURSE ---
Patient is sleeping and pain appears to be lowered at this time.
[2025-01-28 02:13] LABS: Hematocrit 34.1 % (37.0-47.0); Hemoglobin 11.4 g/dL (12.0-15.0); Immature Granulocyte Percent A 1.3 % (0-0.5); Lymphocytes Absolute Auto 2.34 K/mm3 (0.9-3.2); Mean Corpuscular HGB Conc 33.4 g/dl (32-36); Mean Corpuscular Hemoglobin 34.5 pg (26-34); Mean Corpuscular Volume 103.3 fl (80-100); Nucleated Red Blood Cells Absolute Auto 0.020 K/mm3 (0.0-0.012); Nucleated Red Blood Cells Perc 0.1 % (0.0-0.2); Platelet Count Result 196 k/mm3 (150-375); Red Blood Count 3.30 M/mm3 (4.2-5.4); White Blood Count 15.0 K/mm3 (4.5-10.0)
[2025-01-28] MEDS: SODIUM CHLORIDE 0.9% IV 1,000 ML 100 ML IV CONT (02:21)
[2025-01-28 02:31] LABS: Fibrinogen 213 mg/dl (215-510)
--- NOTE | 2025-01-28 02:45 | PC.NURSE ---
patient had bowel movement past the rectal alejo. Full bed change completed. Rectal alejo was out of the patient. Called ICU nurse to tell him that the patient is being transported to ICU.
[2025-01-28 03:35] LABS: MRSA (PCR) NOT DETECTED (NOT DETECTE)
[2025-01-28] MEDS: NOREPINEPHRINE 8 MG/D5W 250 ML 8 MG/250 ML BAG 18.75 MG IV CONT (04:00)
[2025-01-28 07:44] LABS: Ammonia 64 umol/L (9-30)
[2025-01-28 07:47] LABS: Alanine Aminotransferase 45 U/L (6-35); Albumin Level 2.5 g/dL (3.5-5.1); Alkaline Phosphatase 108 U/L (38-126); Anion Gap 7 mmol/L (4-12); Aspartate Amino Transferase 194 U/L (14-36); Bilirubin,Total 2.5 mg/dL (0.2-1.3); Blood Urea Nitrogen 53 mg/dL (7-17); Calcium 9.1 mg/dL (8.4-10.2); Carbon Dioxide 18 mmol/L (22-30); Chloride 110 mmol/L (98-107); Estimated CRCL calculation 61 ml/min; Estimated Glomerular Filt Rate 40; Glucose 164 mg/dL (65-110); Potassium 6.1 mmol/L (3.4-5.0); Sodium 135 mmol/L (137-145); Total Protein 6.1 g/dL (6.3-8.2)
[2025-01-28] MEDS: ALBUMIN HUMAN 25% 25 GM/100 ML 100 ML IVPB ×3 (08:11→17:42)
[2025-01-28] MEDS: OCTREOTIDE ACETATE 500 MCG in SODIUM CHLORIDE 0.9% IV 99 ML 10 MCG IV CONT ×2 (08:15→16:40)
[2025-01-28] MEDS: SODIUM BICARBONATE 8.4% 50 MEQ/50 ML SYRINGE 100 MEQ IV PUSH (08:23)
[2025-01-28] MEDS: DEXTROSE 50% 25 GM/50 ML SYRINGE IV PUSH (08:23)
[2025-01-28] MEDS: INSULIN HUMAN REGULAR (*BKC) 100 UNITS/ML 10 UNITS IV PUSH (08:25)
[2025-01-28] MEDS: cefTRIAXone 2 GM in SODIUM CHLORIDE 0.9% IV 50 ML 100 ML IVPB (08:26)
[2025-01-28] MEDS: PHYTONADIONE ADULT INJ 10 MG in DEXTROSE 5% IN WATER 50 ML 68 MG IVPB (08:28)
[2025-01-28] MEDS: ALBUTEROL SULFATE NEB 2.5 MG/3 ML INH 10 MG INHALATION (08:46)
[2025-01-28] MEDS: ETOMIDATE 20 MG/10 ML AMPUL IV PUSH (09:09)
[2025-01-28] MEDS: ROCURONIUM BROMIDE 50 MG/5 ML VIAL IV PUSH (09:09)
[2025-01-28] MEDS: MIDAZOLAM HCL (*CRX) 2 MG/2 ML VIAL 4 MG IV PUSH ×2 (09:17→12:04)
[2025-01-28] MEDS: FENTANYL 2,500MCG/NS250ML(*CRX 2,500 MCG/250 ML BAG IV CONT (09:18)
[2025-01-28] MEDS: MIDAZOLAM 100MG/NS 100ML(*CRX) 100 MG/100 ML BAG IV CONT (09:19)
--- NOTE | 2025-01-28 09:19 | WPDCNINT ---
Assessment and Plan Assessment and plan (1) Hemorrhagic shock: Code(s): R57.8 - Other shock Status: Acute Assessment and Plan: Pt presented with rectal bleed, CT showed esophageal and rectal varices. -Transfused 2 units unmatched PRBC -hemoglobin this morning is 9.3, platelets 186 -INR 1.6, will give vitamin K -transfuse 1 unit FFP due to cirrhosis -continue octreotide and Protonix infusion -patient adequately fluid-resuscitated -patient on Levophed and vasopressin, maintain MAP > 65 mmHg or SBP > 100 mmHg for adequate end organ perfusion 01/28: CTA scan of the abdomen and pelvis: Findings within the liver for which malignancy is suspected. Additional findings within the rectum for which acute hemorrhage is suspected (likely secondary to anorectal varices). No findings to suggest upper GI bleeding. 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 Incidental notation is made of cholelithiasis. (2) Esophageal varices: Qualifiers: Esophageal varices bleeding: with bleeding Esophageal varices type: unspecified type Qualified Code(s): I85.01 - Esophageal varices with bleeding Code(s): I85.00 - Esophageal varices without bleeding Status: Acute Assessment and Plan: Esophageal varices as seen on CTA abdomen and pelvis. -GI has been notified -endoscopy sometime today -NG tube with bloody drainage (3) Rectal varices: Code(s): K64.9 - Unspecified hemorrhoids Status: Acute Assessment and Plan: Likely related to alcoholic cirrhosis, endoscopy sometime today per GI (4) Alcoholic cirrhosis of liver with ascites: Code(s): K70.31 - Alcoholic cirrhosis of liver with ascites Status: Acute Assessment and Plan: History of alcoholic cirrhosis -LFTs and bilirubin elevated -could be related to shock liver, cirrhosis, bleed -started patient on ceftriaxone for SBP prophylaxis -continue to monitor LFTs and bilirubin -INR elevated, continue to monitor (5) Airway compromise: Code(s): J98.8 - Other specified respiratory disorders Status: Acute Assessment and Plan: Patient encephalopathic -elevated ammonia level -01/28: Intubated patient for airway protection due to encephalopathy -currently on CMV mode of ventilation, peep of 5 and 40% FiO2 -will extubate once endoscopies completed and mentation improved -sedated with fentanyl and Versed infusion, maintain RASS of 0 to -2, daily SAT and SBT (6) Acute kidney injury: Code(s): N17.9 - Acute kidney failure, unspecified Status: Acute Assessment and Plan: Acute kidney injury, likely related to hemorrhagic shock (7) Encephalopathy: Code(s): G93.40 - Encephalopathy, unspecified Status: Acute Assessment and Plan: Likely related to hyperammonemia -lactulose has been ordered -continue to monitor ammonia level Plan DVT prophylaxis: SCDs, no chemoprophylaxis due to hemorrhagic shock and GI bleed Stress ulcer prophylaxis: Protonix infusion Nutrition: NPO Code Status: Full code Critical Care Time Spent: 55 minutes Due to a high probability of clinically significant, life threatening deterioration, the patient required my highest level of preparedness to intervene emergently and I personally spent this critical care time directly and personally managing the patient. This critical care time included obtaining a history; examining the patient; pulse oximetry; ordering and review of studies; arranging urgent treatment with development of a management plan; evaluation of patient's response to treatment; frequent reassessment; and discussions with other providers. It was exclusive of separately billable procedures and treating other patients and teaching time. Please see Assessment and Plan section and the rest of the note for further information on patient assessment and treatment This dictation may have been done utilizing a voice recognition system. Attempts have been made to correct errors. However, there may be uncorrected grammatical, spelling, and recognitions errors present. Manager Behavior Consult Note Consult date: 01/28/25 Reason for consult: GI bleed, Esophageal and rectal varicies, shock, altered mental status, anisocoria, unable to protect her airway, intubated and on mechanical ventilator, hyperkalemia, acute renal failure, elevated LFTs HPI: Ulysses Salazar is a 64 year old female with past medical history of portal venous hypertension, alcoholic cirrhosis, history of alcohol abuse currently in recovery, psychiatric disorder presented the ED on 01/27/2025 with complains of bright red blood per rectum along with epigastric abdominal pain. She noticed active bleeding from her rectum when she was in the shower and presented to the ED 30 minutes after the episode. In the ER patient had a WBC count of 15.6, hemoglobin of 9.6, platelets of 239, INR of 1.6, D-dimer 3.69, fibrinogen 213. Sodium 135, potassium 5.6, chloride 108, CO2 16, BUN 47, creatinine 1.26. Lactic acid 6.2, total bilirubin 2.2, AST 171, ALT 40, albumin 2.7. 01/28: CTA scan of the abdomen and pelvis: Findings within the liver for which malignancy is suspected. Additional findings within the rectum for which acute hemorrhage is suspected (likely secondary to anorectal varices). No findings to suggest upper GI bleeding. 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 Incidental notation is made of cholelithiasis. In the ER 2 units of packed RBCs were given, patient was hypotensive, central line was inserted in the right IJ was started on Levophed and vasopressin and transfer the ICU for further management. Patient seen and examined this morning in the ICU, has anisocoria, altered mental status, moaning, answers a few questions appropriately and follows simple commands. Patient has pulled out her NG tube multiple times through the night due to her encephalopathy. Ammonia levels were elevated to 64. Lactic acid 6.2 and 3.8. Potassium was 6.1 this morning with gradual increase in her BUN and creatinine. Patient denies any chest pain, shortness of breath, nausea, vomiting complained of abdominal pain. Review of Systems Review of Systems: All systems reviewed & are unremarkable except as noted in HPI and below PMFSH Past Medical History Medical History Compression fracture of L2 T12 compression fracture Compression fracture of T11 vertebra Compression fracture of L1 lumbar vertebra Portal venous hypertension Alcoholic cirrhosis Alcoholism in recovery Surgical History Surgical History (Updated 01/28/25 @ 02:18 by Gabriela Mckeon DO) Surgical history unknown Family History Family History (Updated 01/28/25 @ 02:18 by Gabriela Mckeon DO) Other Unknown family medical history Social History Social History (Updated 01/28/25 @ 02:19 by Gabriela Mckeon DO) Social History: Patient resides at [facility]. She has a history of alcohol abuse in recovery. Code status: Full code Smoking status: Former smoker Alcohol intake: former Substance use: former Spiritual care concerns: No Meds Home Medications and Allergies Home Medications ?Medication ?Instructions ?Recorded ?Confirmed ?Type aripiprazole 2 mg tablet 2 mg PO DAILY 01/28/25 01/28/25 History aripiprazole 2 mg tablet (Abilify) 2 mg PO DAILY 01/28/25 01/28/25 History aripiprazole 5 mg tablet 5 mg PO DAILY 01/28/25 01/28/25 History citalopram 40 mg tablet 40 mg PO DAILY 01/28/25 01/28/25 History clonazepam 0.5 mg tablet 0.5 mg PO Q12H 01/28/25 01/28/25 History cyclobenzaprine 5 mg tablet 5 mg PO Q8H PRN muscle spasm 01/28/25 01/28/25 History sertraline 50 mg tablet 50 mg PO DAILY 01/28/25 01/28/25 History Allergies Allergy/AdvReac Type Severity Reaction Status Date / Time ziprasidone (From [facility]) Allergy Anaphylaxis Verified 04/08/24 17:11 NSAIDS (Non-Steroidal AdvReac Ulcers Verified 04/08/24 17:11 Anti-Inflamma Vital Signs Vital Signs - 24 hr 01/27/25 21:08 01/27/25 21:19 01/27/25 22:06 Temperature 98.0 F Pulse Rate 105 H 72 104 H Respiratory Rate 14 15 20 Blood Pressure 129/61 129/61 84/53 L Pulse Oximetry 99 95 98 Oxygen Delivery Room Air 01/27/25 22:10 01/27/25 22:15 01/27/25 22:19 Temperature 98.1 F Pulse Rate 87 91 95 Respiratory Rate 18 18 Blood Pressure 89/42 L 115/89 92/54 L Pulse Oximetry 99 99 Oxygen Delivery 01/27/25 22:22 01/27/25 22:27 01/27/25 22:30 Temperature 98.9 F 98.2 F Pulse Rate 96 83 Respiratory Rate 18 18 Blood Pressure 86/54 L 101/52 L 103/59 L Pulse Oximetry 98 99 Oxygen Delivery 01/28/25 00:00 01/28/25 00:15 01/28/25 00:25 Temperature Pulse Rate 90 81 91 Respiratory Rate 18 18 18 Blood Pressure 162/81 H 168/74 H 153/84 H Pulse Oximetry 98 98 99 Oxygen Delivery 01/28/25 01:24 01/28/25 02:13 01/28/25 02:45 Temperature 98.1 F 98.0 F Pulse Rate 98 97 79 Respiratory Rate 18 18 18 Blood Pressure 120/82 92/71 L 87/59 L Pulse Oximetry 99 96 99 Oxygen Delivery 01/28/25 03:05 01/28/25 03:45 01/28/25 04:00 Temperature 98.0 F 98.6 F Pulse Rate 79 83 83 Respiratory Rate 18 12 Blood Pressure 92/57 L 82/43 L 76/43 L Pulse Oximetry 99 96 Oxygen Delivery 01/28/25 04:00 01/28/25 04:03 01/28/25 04:30 Temperature Pulse Rate 83 83 79 Respiratory Rate 13 18 Blood Pressure 76/43 L 76/43 L Pulse Oximetry 95 99 Oxygen Delivery Room Air 01/28/25 04:30 01/28/25 04:30 01/28/25 05:00 Temperature 98.8 F Pulse Rate 88 74 Respiratory Rate 13 13 Blood Pressure 111/59 L 90/50 L Pulse Oximetry 97 92 Oxygen Delivery Room Air 01/28/25 05:00 01/28/25 06:00 01/28/25 06:00 Temperature 98.9 F Pulse Rate 74 69 69 Respiratory Rate 12 Blood Pressure 89/50 L 108/56 L Pulse Oximetry 96 Oxygen Delivery 01/28/25 06:00 01/28/25 06:06 01/28/25 06:30 Temperature Pulse Rate 70 70 84 Respiratory Rate Blood Pressure 102/55 L 102/55 L 120/56 L Pulse Oximetry Oxygen Delivery 01/28/25 08:00 01/28/25 08:49 01/28/25 08:49 Temperature 99.0 F Pulse Rate 84 90 89 Respiratory Rate 10 L 12 11 L Blood Pressure 116/59 L Pulse Oximetry 97 98 Oxygen Delivery Room Air Exam Narrative: General: Pt is encephalopathic, moaning HEENT:? Pupils unequal, R>L, sclera is icteric Neck:? supple Respiratory:? clear to auscultation, no wheezing Cardiac:? S1 S2 normal, Abdomen:? soft, epigastric tenderness, non distended Extremities:?b/l edema of lower extremities, palpable pedal pulses Neuro:? encephalopathic, awake, not oriented, able to answer a few questions, , follows commands Skin:? cool extremities Psych:? unable to assess Results Labs 01/28/25 10:25 01/28/25 07:18 Labs: Short CBC 01/27/25 01/28/25 Range/Units 21:44 02:06 WBC 15.6 H 15.0 H (4.5-10.0) K/mm3 Hgb 9.6 L D 11.4 L (12.0-15.0) g/dL Hct 29.7 L 34.1 L (37.0-47.0) % Plt Count 239 196 (150-375) k/mm3 BMP 01/27/25 01/27/25 01/27/25 21:44 21:44 21:44 Sodium Cancelled 135 L Potassium Cancelled 5.6 H Chloride Cancelled Carbon Dioxide BUN Creatinine Glucose Calcium 01/27/25 01/27/25 01/27/25 21:44 21:44 21:44 Sodium Potassium Chloride 108 H Carbon Dioxide Cancelled 16 L BUN Cancelled 47 H D Creatinine Cancelled Glucose Calcium 01/27/25 01/27/25 01/27/25 21:44 21:44 21:44 Sodium Potassium Chloride Carbon Dioxide BUN Creatinine 1.26 H Glucose Cancelled 118 H Calcium Cancelled 9.6 01/28/25 07:18 Sodium 135 L Potassium 6.1 H* Chloride 110 H Carbon Dioxide 18 L BUN 53 H Creatinine 1.35 H Glucose 164 H Calcium 9.1 Cardiac Enzymes 01/27/25 Range/Units 21:44 Troponin I < 0.012 (0.000-0.034) ng/mL Liver Function 01/27/25 01/27/25 01/27/25 Range/Units 21:44 21:44 21:44 Total Bilirubin Cancelled 2.2 H AST Cancelled 171 H ALT Cancelled Alkaline Phosphatase Albumin 01/27/25 01/27/25 01/27/25 Range/Units 21:44 21:44 21:44 Total Bilirubin AST ALT 40 H Alkaline Phosphatase Cancelled 108 Albumin Cancelled 2.7 L 01/28/25 Range/Units 07:18 Total Bilirubin 2.5 H AST 194 H ALT 45 H Alkaline Phosphatase 108 Albumin 2.5 L Urine 01/27/25 Range/Units 23:13 Urine Color Dark yellow (Yellow) Urine Appearance Cloudy H (Clear) Urine pH 6.0 (5.0-9.0) Ur Specific [place] 1.021 (1.001-1.035) Urine Protein Trace (Negative) mg/dL Urine Glucose (UA) Negative (Negative) mg/dL Quality VTE Prophylaxis VTE prophylaxis: mechanical ordered If No VTE Prophylaxis Answer both mechanical and pharmacologic: Reason no pharmacologic proph: medical contraindication active bleeding/bleeding risk Hospitalist [facility] Advance Care Plan I have confirmed that the patient's Advanced Care Plan is present, code status is documented, or surrogate decision maker is listed in patient medical record.: Yes Medication Reconciliation I have utilized all available resources to obtain, update and review the patients current medications (includes all prescriptions, OTC, herbals, cannabis, and nutritional supplements).: Yes
[2025-01-28 10:35] LABS: Hematocrit 27.3 % (37.0-47.0); Hemoglobin 9.3 g/dL (12.0-15.0); Mean Corpuscular HGB Conc 34.1 g/dl (32-36); Mean Corpuscular Hemoglobin 35.0 pg (26-34); Mean Corpuscular Volume 102.6 fl (80-100); Platelet Count Result 186 k/mm3 (150-375); Red Blood Count 2.66 M/mm3 (4.2-5.4); White Blood Count 18.9 K/mm3 (4.5-10.0)
[2025-01-28 10:52] LABS: Alveolar/Arterial O2 Gradient 156.7 mmHg; Fractional Inspired Oxygen 40 %; HCO3 ABG 19.2 mEq/l (22.0-26.0); Oxygen Content ABG 13.1 %vol (16.0-22.0); Oxygen Saturation ABG 96.1 % (95.0-100.0); PCO2 ABG 36.5 mmHg (35.0-45.0); PO2 ABG 86.5 mmHg (80.0-100.0); PO2 FiO2 Ratio Arterial Blood 2.16 %
[2025-01-28 10:54] LABS: Site Drawn ARTLINE
[2025-01-28 10:55] LABS: Arterial Blood Gas Ventilator rate 22 /MIN
[2025-01-28 10:56] LABS: Arterial Blood Gas Tidal Volume 400 ml
[2025-01-28] MEDS: SODIUM BICARBONATE 8.4% 50 MEQ/50 ML SYRINGE IV PUSH (10:58)
[2025-01-28] MEDS: SODIUM BICARBONATE 8.4% 150 MEQ in DEXTROSE 5% 1,000 ML 950 ML 75 MEQ IV CONT (11:30)
--- NOTE | 2025-01-28 11:47 | P.CONGI_ITS ---
Assessment and Plan Assessment and plan (1) Acute upper GI bleed: Code(s): K92.2 - Gastrointestinal hemorrhage, unspecified Status: Acute Assessment and Plan: critically ill will proceed with urgent egd at bedside in icu iv octreotide, protonix, abx prognosis is guarded on pressors (2) Alcoholic cirrhosis of liver with ascites: Code(s): K70.31 - Alcoholic cirrhosis of liver with ascites Status: Acute Assessment and Plan: will need MRI with liver protocol when more stable, possibility of malignancy will get AFP (3) Esophageal varices: Qualifiers: Esophageal varices bleeding: with bleeding Esophageal varices type: u nspecified type Qualified Code(s): I85.01 - Esophageal varices with bleeding Code(s): I85.00 - Esophageal varices without bleeding Status: Acute Assessment and Plan: egd now (4) Rectal varices: Code(s): K64.9 - Unspecified hemorrhoids Status: Acute (5) Hemorrhagic shock: Code(s): R57.8 - Other shock Status: Acute Assessment and Plan: on pressors blood products correct coagulopathy (6) Acute kidney injury: Code(s): N17.9 - Acute kidney failure, unspecified Status: Acute Assessment and Plan: fluids monitor (7) Encephalopathy: Code(s): G93.40 - Encephalopathy, unspecified Status: Acute (8) Airway compromise: Code(s): J98.8 - Other specified respiratory disorders Status: Acute GI Consult Note Consult date/time: 01/28/25 11:47 Reason for consult: gib, cirrhosis, shock HPI: Ulysses Salazar is a 64 year old female with past medical history of portal venous hypertension, alcoholic cirrhosis with alcohol abuse currently in recovery, psychiatric disorder presented the ED on 01/27/2025 with complains of bright red blood per rectum along with epigastric abdominal pain, patient is currently intubated in ICU and history obtained from records. She had new onset of active bleeding from her rectum when she was in the shower and presented to the ED 30 minutes after the episode. In the ER WBC count of 15.6, hemoglobin of 9.6 most recent 9.3, platelets of 239, INR of 1.6, D-dimer 3.69, fibrinogen 213. Sodium 135, potassium 5.6, chloride 108, CO2 16, BUN 47, creatinine 1.26. Lactic acid 6.2, total bilirubin 2.2, AST 171, ALT 40, albumin 2.7. Then had CTA scan of the abdomen and pelvis that was reviewed- abnormal nodule within the liver for which malignancy is suspected. Additional findings within the rectum for which acute hemorrhage is suspected (likely secondary to anorectal varices). Cavernous transformation of the portal vein. Umbilical, esophageal and anorectal varices. Patient received 2 units of packed RBCs were given, she was hypotensive and central line was inserted in the right IJ was started on Levophed and vasopressin and transfer the ICU for further management. Also became more obtunded and intubated also for airway protection. Review of Systems 2 Review of Systems: ROS unobtainable: Yes unobtainable due to endotracheal tube, unobtainable due to medical condition and unobtainable due to mental status PMFSH Past Medical History Medical History Compression fracture of L2 T12 compression fracture Compression fracture of T11 vertebra Compression fracture of L1 lumbar vertebra Portal venous hypertension Alcoholic cirrhosis Alcoholism in recovery Surgical History Surgical History (Updated 01/28/25 @ 02:18 by Gabriela Mckeon DO) Surgical history unknown Family History Family History (Updated 01/28/25 @ 02:18 by Gabriela Mckeon DO) Other Unknown family medical history Social History Social History (Updated 01/28/25 @ 02:19 by Gabriela Mckeon DO) Social History: Patient resides at [facility]. She has a history of alcohol abuse in recovery. Code status: Full code Smoking status: Former smoker Alcohol intake: former Substance use: former Spiritual care concerns: No Meds Home Medications and Allergies Home Medications ?Medication ?Instructions ?Recorded ?Confirmed ?Type aripiprazole 2 mg tablet 2 mg PO DAILY 01/28/25 01/28/25 History aripiprazole 2 mg tablet (Abilify) 2 mg PO DAILY 01/28/25 01/28/25 History aripiprazole 5 mg tablet 5 mg PO DAILY 01/28/25 01/28/25 History citalopram 40 mg tablet 40 mg PO DAILY 01/28/25 01/28/25 History clonazepam 0.5 mg tablet 0.5 mg PO Q12H 01/28/25 01/28/25 History cyclobenzaprine 5 mg tablet 5 mg PO Q8H PRN muscle spasm 01/28/25 01/28/25 History sertraline 50 mg tablet 50 mg PO DAILY 01/28/25 01/28/25 History Allergies Allergy/AdvReac Type Severity Reaction Status Date / Time ziprasidone (From [facility]) Allergy Anaphylaxis Verified 04/08/24 17:11 NSAIDS (Non-Steroidal AdvReac Ulcers Verified 04/08/24 17:11 Anti-Inflamma Vital Signs Vital Signs - 24 hr 01/27/25 21:08 01/27/25 21:19 01/27/25 22:06 Temperature 98.0 F Pulse Rate 105 H 72 104 H Respiratory Rate 14 15 20 Blood Pressure 129/61 129/61 84/53 L Pulse Oximetry 99 95 98 Oxygen Delivery Room Air Fraction of Inspired Oxygen 01/27/25 22:10 01/27/25 22:15 01/27/25 22:19 Temperature 98.1 F Pulse Rate 87 91 95 Respiratory Rate 18 18 Blood Pressure 89/42 L 115/89 92/54 L Pulse Oximetry 99 99 Oxygen Delivery Fraction of Inspired Oxygen 01/27/25 22:22 01/27/25 22:27 01/27/25 22:30 Temperature 98.9 F 98.2 F Pulse Rate 96 83 Respiratory Rate 18 18 Blood Pressure 86/54 L 101/52 L 103/59 L Pulse Oximetry 98 99 Oxygen Delivery Fraction of Inspired Oxygen 01/28/25 00:00 01/28/25 00:15 01/28/25 00:25 Temperature Pulse Rate 90 81 91 Respiratory Rate 18 18 18 Blood Pressure 162/81 H 168/74 H 153/84 H Pulse Oximetry 98 98 99 Oxygen Delivery Fraction of Inspired Oxygen 01/28/25 01:24 01/28/25 02:13 01/28/25 02:45 Temperature 98.1 F 98.0 F Pulse Rate 98 97 79 Respiratory Rate 18 18 18 Blood Pressure 120/82 92/71 L 87/59 L Pulse Oximetry 99 96 99 Oxygen Delivery Fraction of Inspired Oxygen 01/28/25 03:05 01/28/25 03:45 01/28/25 04:00 Temperature 98.0 F 98.6 F Pulse Rate 79 83 83 Respiratory Rate 18 12 Blood Pressure 92/57 L 82/43 L 76/43 L Pulse Oximetry 99 96 Oxygen Delivery Fraction of Inspired Oxygen 01/28/25 04:00 01/28/25 04:03 01/28/25 04:30 Temperature Pulse Rate 83 83 79 Respiratory Rate 13 18 Blood Pressure 76/43 L 76/43 L Pulse Oximetry 95 99 Oxygen Delivery Room Air Fraction of Inspired Oxygen 01/28/25 04:30 01/28/25 04:30 01/28/25 05:00 Temperature 98.8 F Pulse Rate 88 74 Respiratory Rate 13 13 Blood Pressure 111/59 L 90/50 L Pulse Oximetry 97 92 Oxygen Delivery Room Air Fraction of Inspired Oxygen 01/28/25 05:00 01/28/25 06:00 01/28/25 06:00 Temperature 98.9 F Pulse Rate 74 69 69 Respiratory Rate 12 Blood Pressure 89/50 L 108/56 L Pulse Oximetry 96 Oxygen Delivery Fraction of Inspired Oxygen 01/28/25 06:00 01/28/25 06:06 01/28/25 06:30 Temperature Pulse Rate 70 70 84 Respiratory Rate Blood Pressure 102/55 L 102/55 L 120/56 L Pulse Oximetry Oxygen Delivery Fraction of Inspired Oxygen 01/28/25 08:00 01/28/25 08:49 01/28/25 08:49 Temperature 99.0 F Pulse Rate 84 90 89 Respiratory Rate 10 L 12 11 L Blood Pressure 116/59 L Pulse Oximetry 97 98 Oxygen Delivery Room Air Fraction of Inspired Oxygen 01/28/25 09:10 01/28/25 09:18 01/28/25 09:19 Temperature Pulse Rate 114 H 108 H 108 H Respiratory Rate 22 H 22 H Blood Pressure Pulse Oximetry 100 Oxygen Delivery Mechanical Ventilation Fraction of Inspired Oxygen 60 01/28/25 09:45 01/28/25 09:45 01/28/25 09:50 Temperature Pulse Rate 115 H 115 H 72 Respiratory Rate 27 H 24 H 22 H Blood Pressure Pulse Oximetry Oxygen Delivery Fraction of Inspired Oxygen 01/28/25 09:58 01/28/25 09:59 01/28/25 10:00 Temperature 99.1 F Pulse Rate 120 H 100 117 H Respiratory Rate 23 H 29 H Blood Pressure 116/63 Pulse Oximetry 96 96 Oxygen Delivery Mechanical Ventilation Fraction of Inspired Oxygen 40 01/28/25 10:18 01/28/25 10:19 01/28/25 11:42 Temperature Pulse Rate 115 H 115 H 81 Respiratory Rate 28 H 24 H Blood Pressure Pulse Oximetry 99 Oxygen Delivery Mechanical Ventilation Fraction of Inspired Oxygen 40 Exam 2 Narrative: General: Pt is critically ill in icu HEENT:? Pupils unequal, sclera is icteric, intubated NGT with blood Neck:? supple Respiratory:? clear to auscultation, no wheezing Cardiac:? S1 S2 normal, Abdomen:? soft, epigastric tenderness, non distended Extremities:?b/l edema of lower extremities Neuro:? she was encephalopathic prior intubated and now intubated Skin:? cool extremities Psych:? unable to assess Results Labs 01/28/25 10:25 01/28/25 07:18 Labs: Short CBC 01/27/25 01/28/25 01/28/25 Range/Units 21:44 02:06 10:25 WBC 15.6 H 15.0 H 18.9 H (4.5-10.0) K/mm3 Hgb 9.6 L D 11.4 L 9.3 L (12.0-15.0) g/dL Hct 29.7 L 34.1 L 27.3 L (37.0-47.0) % Plt Count 239 196 186 (150-375) k/mm3 BMP 01/27/25 01/27/25 01/27/25 21:44 21:44 21:44 Sodium Cancelled 135 L Potassium Cancelled 5.6 H Chloride Cancelled Carbon Dioxide BUN Creatinine Glucose Calcium 01/27/25 01/27/25 01/27/25 21:44 21:44 21:44 Sodium Potassium Chloride 108 H Carbon Dioxide Cancelled 16 L BUN Cancelled 47 H D Creatinine Cancelled Glucose Calcium 01/27/25 01/27/25 01/27/25 21:44 21:44 21:44 Sodium Potassium Chloride Carbon Dioxide BUN Creatinine 1.26 H Glucose Cancelled 118 H Calcium Cancelled 9.6 01/28/25 07:18 Sodium 135 L Potassium 6.1 H* Chloride 110 H Carbon Dioxide 18 L BUN 53 H Creatinine 1.35 H Glucose 164 H Calcium 9.1 Cardiac Enzymes 01/27/25 Range/Units 21:44 Troponin I < 0.012 (0.000-0.034) ng/mL Liver Function 01/27/25 01/27/25 01/27/25 Range/Units 21:44 21:44 21:44 Total Bilirubin Cancelled 2.2 H AST Cancelled 171 H ALT Cancelled Alkaline Phosphatase Albumin 08/05/25 08/05/25 08/05/25 Range/Units 21:44 21:44 21:44 Total Bilirubin AST ALT 40 H Alkaline Phosphatase Cancelled 108 Albumin Cancelled 2.7 L 01/28/25 Range/Units 07:18 Total Bilirubin 2.5 H AST 194 H ALT 45 H Alkaline Phosphatase 108 Albumin 2.5 L Urine 01/27/25 Range/Units 23:13 Urine Color Dark yellow (Yellow) Urine Appearance Cloudy H (Clear) Urine pH 6.0 (5.0-9.0) Ur Specific [place] 1.021 (1.001-1.035) Urine Protein Trace (Negative) mg/dL Urine Glucose (UA) Negative (Negative) mg/dL
[2025-01-28] MEDS: fentaNYL CITRATE INJ (*CRX) 100 MCG/2 ML VIAL IV PUSH (12:04)
[2025-01-28] MEDS: ROCURONIUM BROMIDE 50 MG/5 ML VIAL 100 MG IV PUSH (12:04)
[2025-01-28] MEDS: PANTOPRAZOLE SODIUM IV 80 MG in SODIUM CHLORIDE 0.9% IV 500 ML 50 MG IV CONT (13:03)
[2025-01-28] MEDS: LACTULOSE 20 GM/30 ML UDC FEED TUBE (13:29)
[2025-01-28] MEDS: CENTRAL LINE FLUSH 10 ML IV PUSH ×2 (14:24→20:37)
[2025-01-28 14:54] LABS: Hematocrit 25.1 % (37.0-47.0); Hemoglobin 8.4 g/dL (12.0-15.0); Mean Corpuscular HGB Conc 33.5 g/dl (32-36); Mean Corpuscular Hemoglobin 34.3 pg (26-34); Mean Corpuscular Volume 102.4 fl (80-100); Platelet Count Result 176 k/mm3 (150-375); Red Blood Count 2.45 M/mm3 (4.2-5.4); White Blood Count 18.6 K/mm3 (4.5-10.0)
[2025-01-28] MEDS: SODIUM CHLORIDE 0.9% IV 250 ML 30 ML IV CONT (15:05)
[2025-01-28 15:11] LABS: Alanine Aminotransferase 83 U/L (6-35); Albumin Level 2.7 g/dL (3.5-5.1); Alkaline Phosphatase 89 U/L (38-126); Anion Gap 6 mmol/L (4-12); Aspartate Amino Transferase 234 U/L (14-36); Bilirubin,Total 2.0 mg/dL (0.2-1.3); Blood Urea Nitrogen 60 mg/dL (7-17); Calcium 9.0 mg/dL (8.4-10.2); Carbon Dioxide 23 mmol/L (22-30); Chloride 106 mmol/L (98-107); Estimated CRCL calculation 61 ml/min; Estimated Glomerular Filt Rate 39; Glucose 191 mg/dL (65-110); Potassium 5.2 mmol/L (3.4-5.0); Sodium 135 mmol/L (137-145); Total Protein 5.8 g/dL (6.3-8.2)
[2025-01-28] MEDS: MINERAL OIL/WHITE PETROLATUM OINTMENT 1 APPLIC EACH EYE (20:37)
[2025-01-28] MEDS: NOREPINEPHRINE 8 MG/D5W 250 ML 8 MG/250 ML BAG 3.75 MG IV CONT (21:14)
[2025-01-28 21:20] LABS: Hematocrit 21.5 % (37.0-47.0); Hemoglobin 7.2 g/dL (12.0-15.0); Mean Corpuscular HGB Conc 33.5 g/dl (32-36); Mean Corpuscular Hemoglobin 34.6 pg (26-34); Mean Corpuscular Volume 103.4 fl (80-100); Platelet Count Result 129 k/mm3 (150-375); Red Blood Count 2.08 M/mm3 (4.2-5.4); White Blood Count 14.1 K/mm3 (4.5-10.0)
[2025-01-29] VITALS (41 sets, daily range): BP systolic 107–135; BP diastolic 50–76; PULSE 66–76; RESP 18–22; TEMP 35.9–36.7; O2SAT 94–100
[2025-01-29] MEDS: PANTOPRAZOLE SODIUM IV 80 MG in SODIUM CHLORIDE 0.9% IV 500 ML 50 MG IV CONT ×3 (00:06→21:29)
[2025-01-29] MEDS: LACTULOSE 20 GM/30 ML UDC FEED TUBE (00:07)
[2025-01-29] MEDS: ALBUMIN HUMAN 25% 25 GM/100 ML 100 ML IVPB (01:39)
[2025-01-29] MEDS: SODIUM BICARBONATE 8.4% 150 MEQ in DEXTROSE 5% 1,000 ML 950 ML 75 MEQ IV CONT (01:52)
[2025-01-29 03:50] LABS: Hematocrit 21.7 % (37.0-47.0); Hemoglobin 7.3 g/dL (12.0-15.0); Immature Granulocyte Percent A 0.6 % (0-0.5); Immature Platelet Fraction Pct 2.4 % (0.9-11.2); Lymphocytes Absolute Auto 2.57 K/mm3 (0.9-3.2); Mean Corpuscular HGB Conc 33.6 g/dl (32-36); Mean Corpuscular Hemoglobin 34.0 pg (26-34); Mean Corpuscular Volume 100.9 fl (80-100); Nucleated Red Blood Cells Absolute Auto 0.050 K/mm3 (0.0-0.012); Nucleated Red Blood Cells Perc 0.5 % (0.0-0.2); Platelet Count Result 106 k/mm3 (150-375); Red Blood Count 2.15 M/mm3 (4.2-5.4); White Blood Count 10.1 K/mm3 (4.5-10.0)
[2025-01-29 03:58] LABS: INR 1.8; Prothrombin Time 20.3 Seconds (11.1-14.7)
[2025-01-29 03:59] LABS: Partial Thromboplastin Time 32.1 Seconds (22.3-36.8)
[2025-01-29 04:06] LABS: Ammonia 54 umol/L (9-30)
[2025-01-29 04:09] LABS: Alanine Aminotransferase 94 U/L (6-35); Albumin Level 3.1 g/dL (3.5-5.1); Alkaline Phosphatase 64 U/L (38-126); Anion Gap 6 mmol/L (4-12); Aspartate Amino Transferase 227 U/L (14-36); Bilirubin,Total 1.9 mg/dL (0.2-1.3); Blood Urea Nitrogen 65 mg/dL (7-17); CRP 4.0 mg/dL (<1.0); Calcium 9.5 mg/dL (8.4-10.2); Carbon Dioxide 26 mmol/L (22-30); Chloride 107 mmol/L (98-107); Estimated CRCL calculation 59 ml/min; Estimated Glomerular Filt Rate 38; Glucose 123 mg/dL (65-110); Magnesium 1.9 mg/dL (1.6-2.3); Potassium 4.3 mmol/L (3.4-5.0); Sodium 139 mmol/L (137-145); Total Protein 5.8 g/dL (6.3-8.2)
[2025-01-29 04:44] LABS: Alveolar/Arterial O2 Gradient 173.3 mmHg; Carboxyhemoglobin 0.8 % THb (0-2.0); Fractional Inspired Oxygen 40 %; HCO3 ABG 23.7 mEq/l (22.0-26.0); Methemoglobin ABG 0.0 %THb (0-1.5); Oxygen Content ABG 10.7 %vol (16.0-22.0); Oxygen Saturation ABG 96.5 % (95.0-100.0); PCO2 ABG 30.7 mmHg (35.0-45.0); PO2 ABG 76.6 mmHg (80.0-100.0); PO2 FiO2 Ratio Arterial Blood 1.91 %; Reduced Hemoglobin 4.4 %THb (0-5.0)
[2025-01-29 04:48] LABS: Site Drawn ARTLINE
[2025-01-29 04:49] LABS: Arterial Blood Gas Ventilator rate 22 /MIN
[2025-01-29 04:50] LABS: Arterial Blood Gas Tidal Volume 400 ml
[2025-01-29] MEDS: OCTREOTIDE ACETATE 500 MCG in SODIUM CHLORIDE 0.9% IV 99 ML 10 MCG IV CONT ×2 (05:10→14:10)
[2025-01-29] MEDS: FENTANYL 2,500MCG/NS250ML(*CRX 2,500 MCG/250 ML BAG 12.5 MCG IV CONT (05:10)
[2025-01-29] MEDS: CENTRAL LINE FLUSH 10 ML IV PUSH ×3 (05:11→21:30)
[2025-01-29] MEDS: MIDAZOLAM 100MG/NS 100ML(*CRX) 100 MG/100 ML BAG IV CONT (07:26)
--- NOTE | 2025-01-29 08:08 | WPDINTPN ---
Progress Note: A&P Assessment and Plan (1) Hemorrhagic shock: Code(s): R57.8 - Other shock Status: Acute Assessment and Plan: Pt presented with rectal bleed, CT showed esophageal and rectal varices. -Transfused 2 units unmatched PRBC in the ER -hemoglobin this morning is 9.3, platelets 186 -01/28: INR 1.6, will give vitamin K -01/28: Transfused 1 unit of FFP and 1 unit of packed RBC -continue octreotide and Protonix infusion -patient adequately fluid-resuscitated -OFF Levophed and vasopressor, maintain MAP > 65 mmHg or SBP > 100 mmHg for adequate end organ perfusion -01/29: Hb 7.3, INR 1.8 this morning. Transfused 1 unit of FFP and 1 unit of packed RBC, will also repeat vitamin K IVPB 01/28: CTA scan of the abdomen and pelvis: Findings within the liver for which malignancy is suspected. Additional findings within the rectum for which acute hemorrhage is suspected (likely secondary to anorectal varices). No findings to suggest upper GI bleeding. 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 Incidental notation is made of cholelithiasis. (2) Esophageal varices: Qualifiers: Esophageal varices bleeding: with bleeding Esophageal varices type: unspecified type Qualified Code(s): I85.01 - Esophageal varices with bleeding Code(s): I85.00 - Esophageal varices without bleeding Status: Acute Assessment and Plan: Esophageal varices as seen on CTA abdomen and pelvis. -appreciate GI evaluation -01/28: EGD: Showed actively bleeding gastric varix at the gastric cardia, a band ligation device was used to place 1 band, moderate gastritis was seen in the stomach. The gastric has a moderate portal hypertensive change. Large amount of blood was seen in the distal esophagus and the stomach the bowel and the 2nd portion of duodenum was normal with no ulcers or masses -NG tube with bloody drainage, has slowed down, drainage in the FMS has also slowed down (3) Rectal varices: Code(s): K64.9 - Unspecified hemorrhoids Status: Acute Assessment and Plan: Likely related to alcoholic cirrhosis, (4) Alcoholic cirrhosis of liver with ascites: Code(s): K70.31 - Alcoholic cirrhosis of liver with ascites Status: Acute Assessment and Plan: History of alcoholic cirrhosis -LFTs and bilirubin elevated but stable -could be related to shock liver, cirrhosis, bleeding -continue ceftriaxone (01/28) for SBP prophylaxis -continue to monitor LFTs and bilirubin -INR elevated, will give addition vitamin K -continue to monitor (5) Airway compromise: Code(s): J98.8 - Other specified respiratory disorders Status: Acute Assessment and Plan: Patient encephalopathic with elevated ammonia level, not protecting her airway, also intubated for aspiration prevention and for EGD -01/28: Intubated patient for airway protection due to encephalopathy -currently on CMV mode of ventilation, peep of 5 and 40% FiO2 -chest x-ray and ABGs reviewed, will increase PEEP to 8, decrease rate to 18, maintain O2 sats > 92% -sedated with fentanyl and Versed infusion, maintain RASS of 0 to -2, daily SAT and SBT (6) Acute kidney injury: Code(s): N17.9 - Acute kidney failure, unspecified Status: Acute Assessment and Plan: Acute kidney injury, likely related to hemorrhagic shock -low urine output, creatinine gradually trending up -off pressors, blood pressures remained stable, will allow higher MAP, for adequate end organ perfusion -continue to monitor urine output, renal function electrolytes (7) Encephalopathy: Code(s): G93.40 - Encephalopathy, unspecified Status: Acute Assessment and Plan: Likely related to hyperammonemia -continue lactulose -continue to monitor ammonia level Plan DVT prophylaxis: SCDs, no chemoprophylaxis due to hemorrhagic shock and GI bleed Stress ulcer prophylaxis: Protonix infusion Nutrition: NPO Code Status: Full code Critical Care Time Spent: 34 minutes Due to a high probability of clinically significant, life threatening deterioration, the patient required my highest level of preparedness to intervene emergently and I personally spent this critical care time directly and personally managing the patient. This critical care time included obtaining a history; examining the patient; pulse oximetry; ordering and review of studies; arranging urgent treatment with development of a management plan; evaluation of patient's response to treatment; frequent reassessment; and discussions with other providers. It was exclusive of separately billable procedures and treating other patients and teaching time. Please see Assessment and Plan section and the rest of the note for further information on patient assessment and treatment This dictation may have been done utilizing a voice recognition system. Attempts have been made to correct errors. However, there may be uncorrected grammatical, spelling, and recognitions errors present. Subjective Date/time seen: 01/29/25 08:08 Interval history: Reason for consult: GI bleed, Esophageal and rectal varices, shock, altered mental status, anisocoria, unable to protect her airway, intubated and on mechanical ventilator, hyperkalemia, acute renal failure, elevated LFTs 01/28: EGD: Showed actively bleeding gastric varix at the gastric cardia, a band ligation device was used to place 1 band, moderate gastritis was seen in the stomach. The gastric has a moderate portal hypertensive change. Large amount of blood was seen in the distal esophagus and the stomach the bowel and the 2nd portion of duodenum was normal with no ulcers or masses 01/29/2025: Patient seen and examined the ICU. Remains intubated on CMV mode of ventilation, peep of 5, 40% FiO2. Sats sedated with fentanyl and Versed infusion. Urine output has been low, creatinine slightly worsened. Patient is OFF Levophed and vasopressin. Dropped the hemoglobin to 7.2 last night and required 1 unit of packed RBCs. This morning her INR is 1.8 and hemoglobin 7.3 post transfusion. LFTs remain elevated but not increased, ammonia level of 54. Review of Systems Review of Systems: ROS unobtainable: Yes unobtainable due to endotracheal tube, unobtainable due to medical condition and unobtainable due to mental status Exam Narrative: General: Patient is intubated and sedated in no acute distress HEENT:? Pupils unequal, R>L, sclera is icteric Neck:? supple Respiratory:? Coarse breath sounds bilaterally, decreased at bases, no wheezing, adequate air entry Cardiac:? S1 S2 normal, Abdomen:? soft, nontender, non distended, morbidly obese, hypoactive bowel sounds Extremities:?b/l edema of lower extremities, dopplerable pedal pulse is, Neuro:? Patient is intubated, sedated, does not open eyes or follow simple commands. Does withdraw to pain stimulus Skin:? Bilateral feet are cold Psych:? unable to assess Objective Data Vital Signs Vital Signs: Vital Signs - 24 hr 01/28/25 08:49 01/28/25 08:49 01/28/25 09:00 Temperature Pulse Rate 90 89 92 Respiratory Rate 12 11 L Blood Pressure 122/55 L Pulse Oximetry 98 Oxygen Delivery Room Air Fraction of Inspired Oxygen 01/28/25 09:00 01/28/25 09:10 01/28/25 09:18 Temperature Pulse Rate 92 114 H 108 H Respiratory Rate 22 H Blood Pressure 122/55 L Pulse Oximetry 100 Oxygen Delivery Mechanical Ventilation Fraction of Inspired Oxygen 60 01/28/25 09:19 01/28/25 09:45 01/28/25 09:45 Temperature Pulse Rate 108 H 115 H 115 H Respiratory Rate 22 H 27 H 24 H Blood Pressure Pulse Oximetry Oxygen Delivery Fraction of Inspired Oxygen 01/28/25 09:50 01/28/25 09:58 01/28/25 09:59 Temperature Pulse Rate 72 120 H 100 Respiratory Rate 22 H 23 H Blood Pressure Pulse Oximetry 96 Oxygen Delivery Mechanical Ventilation Fraction of Inspired Oxygen 40 01/28/25 10:00 01/28/25 10:00 01/28/25 10:18 Temperature 99.1 F Pulse Rate 117 H 120 H 115 H Respiratory Rate 29 H 28 H Blood Pressure 116/63 Pulse Oximetry 96 Oxygen Delivery Fraction of Inspired Oxygen 01/28/25 10:19 01/28/25 11:00 01/28/25 11:00 Temperature Pulse Rate 115 H 88 88 Respiratory Rate 24 H 14 Blood Pressure 114/62 Pulse Oximetry Oxygen Delivery Fraction of Inspired Oxygen 01/28/25 11:00 01/28/25 11:00 01/28/25 11:42 Temperature Pulse Rate 88 88 81 Respiratory Rate 14 Blood Pressure 114/62 Pulse Oximetry 99 Oxygen Delivery Mechanical Ventilation Fraction of Inspired Oxygen 40 01/28/25 11:57 01/28/25 12:00 01/28/25 12:00 Temperature 98.3 F Pulse Rate 87 86 86 Respiratory Rate 24 H 22 H Blood Pressure 129/78 Pulse Oximetry 99 100 Oxygen Delivery Mechanical Ventilation Fraction of Inspired Oxygen 40 01/28/25 12:00 01/28/25 12:07 01/28/25 12:17 Temperature 98.3 F 98.3 F 98.3 F Pulse Rate 86 86 87 Respiratory Rate 22 H 22 H 22 H Blood Pressure 121/76 119/62 125/70 Pulse Oximetry 100 100 100 Oxygen Delivery Fraction of Inspired Oxygen 01/28/25 13:00 01/28/25 13:00 01/28/25 13:00 Temperature Pulse Rate 71 71 71 Respiratory Rate 22 H 22 H Blood Pressure 101/55 L Pulse Oximetry Oxygen Delivery Fraction of Inspired Oxygen 01/28/25 13:00 01/28/25 14:00 01/28/25 14:00 Temperature 98.0 F Pulse Rate 71 68 68 Respiratory Rate 22 H Blood Pressure 101/55 L 109/55 L Pulse Oximetry 100 Oxygen Delivery Fraction of Inspired Oxygen 01/28/25 14:26 01/28/25 15:00 01/28/25 15:00 Temperature Pulse Rate 73 73 73 Respiratory Rate 22 H Blood Pressure 130/62 Pulse Oximetry 100 Oxygen Delivery Mechanical Ventilation Fraction of Inspired Oxygen 40 01/28/25 15:00 01/28/25 15:00 01/28/25 15:26 Temperature 98.0 F Pulse Rate 73 73 79 Respiratory Rate 22 H 22 H Blood Pressure 130/62 152/73 H Pulse Oximetry 100 Oxygen Delivery Fraction of Inspired Oxygen 01/28/25 15:30 01/28/25 15:30 01/28/25 15:49 Temperature 97.9 F Pulse Rate 79 79 82 Respiratory Rate 22 H Blood Pressure 151/73 H 151/73 H 145/71 H Pulse Oximetry 100 Oxygen Delivery Fraction of Inspired Oxygen 01/28/25 16:00 01/28/25 16:00 01/28/25 16:00 Temperature Pulse Rate 82 79 83 Respiratory Rate 22 H Blood Pressure 145/72 H Pulse Oximetry 100 Oxygen Delivery Mechanical Ventilation Fraction of Inspired Oxygen 40 01/28/25 16:00 01/28/25 16:00 01/28/25 16:30 Temperature 97.9 F Pulse Rate 83 84 Respiratory Rate 22 H Blood Pressure 141/71 H 145/86 H Pulse Oximetry 100 Oxygen Delivery Fraction of Inspired Oxygen 40 01/28/25 17:01 01/28/25 17:33 01/28/25 18:00 Temperature Pulse Rate 83 80 77 Respiratory Rate Blood Pressure 133/83 Pulse Oximetry 100 Oxygen Delivery Mechanical Ventilation Fraction of Inspired Oxygen 40 01/28/25 18:00 01/28/25 20:00 01/28/25 20:00 Temperature 97.9 F Pulse Rate 77 78 78 Respiratory Rate 22 H 22 H Blood Pressure 99/81 L 126/57 L Pulse Oximetry 100 Oxygen Delivery Fraction of Inspired Oxygen 01/28/25 20:00 01/28/25 20:00 01/28/25 20:00 Temperature 97.6 F Pulse Rate 78 78 78 Respiratory Rate 22 H 22 H Blood Pressure 126/57 L 126/57 L Pulse Oximetry 99 Oxygen Delivery Fraction of Inspired Oxygen 01/28/25 20:00 01/28/25 20:00 01/28/25 20:00 Temperature Pulse Rate 78 Respiratory Rate Blood Pressure Pulse Oximetry Oxygen Delivery Mechanical Ventilation Fraction of Inspired Oxygen 40 40 01/28/25 20:09 01/28/25 20:37 01/28/25 21:14 Temperature Pulse Rate 78 77 78 Respiratory Rate Blood Pressure 134/65 106/87 Pulse Oximetry 98 Oxygen Delivery Mechanical Ventilation Fraction of Inspired Oxygen 40 01/28/25 21:41 01/28/25 22:00 01/28/25 22:00 Temperature Pulse Rate 72 72 72 Respiratory Rate 22 H Blood Pressure 119/61 Pulse Oximetry Oxygen Delivery Fraction of Inspired Oxygen 01/28/25 22:00 01/28/25 22:00 01/28/25 22:00 Temperature Pulse Rate 72 72 72 Respiratory Rate 22 H Blood Pressure 98/72 L 98/72 L Pulse Oximetry Oxygen Delivery Fraction of Inspired Oxygen 01/28/25 22:00 01/28/25 22:15 01/28/25 22:16 Temperature 97.5 F L Pulse Rate 72 70 73 Respiratory Rate 22 H Blood Pressure 98/72 L 98/66 L Pulse Oximetry 100 100 Oxygen Delivery Mechanical Ventilation Fraction of Inspired Oxygen 40 01/28/25 23:49 01/28/25 23:50 01/29/25 00:00 Temperature 97.4 F L 97.4 F L 97.4 F L Pulse Rate 68 68 73 Respiratory Rate 22 H 22 H 22 H Blood Pressure 95/66 L 95/66 L 121/63 Pulse Oximetry 100 100 100 Oxygen Delivery Fraction of Inspired Oxygen 01/29/25 00:00 01/29/25 00:00 01/29/25 00:00 Temperature Pulse Rate 72 Respiratory Rate Blood Pressure Pulse Oximetry Oxygen Delivery Mechanical Ventilation Fraction of Inspired Oxygen 40 40 01/29/25 00:00 01/29/25 00:00 01/29/25 00:00 Temperature Pulse Rate 71 71 71 Respiratory Rate 22 H 22 H Blood Pressure 115/60 Pulse Oximetry Oxygen Delivery Fraction of Inspired Oxygen 01/29/25 00:00 01/29/25 00:06 01/29/25 01:06 Temperature 97.5 F L 97.3 F L Pulse Rate 71 71 69 Respiratory Rate 22 H 22 H Blood Pressure 115/60 115/60 116/60 Pulse Oximetry 100 100 Oxygen Delivery Fraction of Inspired Oxygen 01/29/25 01:38 01/29/25 01:47 01/29/25 02:00 Temperature 97.3 F L Pulse Rate 67 68 68 Respiratory Rate 22 H 22 H Blood Pressure 115/60 Pulse Oximetry 99 99 Oxygen Delivery Mechanical Ventilation Fraction of Inspired Oxygen 40 01/29/25 02:00 01/29/25 02:00 01/29/25 02:00 Temperature Pulse Rate 68 68 68 Respiratory Rate 22 H Blood Pressure 114/59 L 114/59 L Pulse Oximetry Oxygen Delivery Fraction of Inspired Oxygen 01/29/25 02:00 01/29/25 02:00 01/29/25 04:00 Temperature 97.3 F L 97.1 F L Pulse Rate 68 68 68 Respiratory Rate 22 H 22 H Blood Pressure 114/59 L 119/62 Pulse Oximetry 98 99 Oxygen Delivery Fraction of Inspired Oxygen 01/29/25 04:00 01/29/25 04:00 01/29/25 04:00 Temperature Pulse Rate 68 68 68 Respiratory Rate 22 H 22 H Blood Pressure 119/62 Pulse Oximetry Oxygen Delivery Fraction of Inspired Oxygen 01/29/25 04:00 01/29/25 04:00 01/29/25 04:00 Temperature Pulse Rate 68 Respiratory Rate Blood Pressure 119/62 Pulse Oximetry Oxygen Delivery Mechanical Ventilation Fraction of Inspired Oxygen 40 40 01/29/25 04:00 01/29/25 04:51 01/29/25 04:57 Temperature Pulse Rate 67 66 66 Respiratory Rate Blood Pressure Pulse Oximetry 97 97 Oxygen Delivery Mechanical Ventilation Mechanical Ventilation Fraction of Inspired Oxygen 40 01/29/25 05:04 01/29/25 05:10 01/29/25 05:10 Temperature Pulse Rate 70 70 Respiratory Rate 18 18 Blood Pressure Pulse Oximetry Oxygen Delivery Fraction of Inspired Oxygen 40 01/29/25 06:00 01/29/25 06:00 01/29/25 06:00 Temperature Pulse Rate 74 74 74 Respiratory Rate 18 18 Blood Pressure 122/59 L Pulse Oximetry Oxygen Delivery Fraction of Inspired Oxygen 01/29/25 06:00 01/29/25 06:00 01/29/25 06:00 Temperature 97.0 F L Pulse Rate 74 74 74 Respiratory Rate 18 Blood Pressure 124/59 L 120/58 L Pulse Oximetry 94 Oxygen Delivery Fraction of Inspired Oxygen 01/29/25 06:12 01/29/25 06:28 01/29/25 07:26 Temperature 97.1 F L 97.0 F L Pulse Rate 75 76 69 Respiratory Rate 18 18 18 Blood Pressure 121/58 L 135/70 Pulse Oximetry 95 94 Oxygen Delivery Fraction of Inspired Oxygen 01/29/25 07:26 01/29/25 07:28 01/29/25 07:28 Temperature 97.7 F 96.7 F L Pulse Rate 69 69 69 Respiratory Rate 18 18 18 Blood Pressure 128/68 128/68 Pulse Oximetry 97 97 Oxygen Delivery Fraction of Inspired Oxygen 01/29/25 07:54 01/29/25 08:00 Temperature 96.8 F L 96.8 F L Pulse Rate 69 68 Respiratory Rate 18 18 Blood Pressure 130/69 130/69 Pulse Oximetry 97 97 Oxygen Delivery Fraction of Inspired Oxygen Intake/Output Intake/Output: Intake & Output 01/26/25 01/27/25 01/28/25 01/29/25 23:59 23:59 23:59 23:59 Intake Total 3380.1 1654.5 Output Total 50 1025 550 Balance -50 2355.1 1104.5 Meds/Results Medications: Active Medications Generic Name Dose Route Start Last Admin Trade Name Freq PRN Reason Stop Dose Admin Octreotide Acetate 500 mcg/ 100 mls @ 10 mls/hr 01/27/25 22:00 01/29/25 05:10 Sodium Chloride IV CONT 50 mcg/hr .Q10H TATYANA 10 mls/hr Administration 50 MCG/HR Vasopressin 100 units/ 100 mls @ 2.4 mls/hr 01/27/25 21:50 01/29/25 06:00 Dextrose IV CONT 0 units/min .[id number] TATYANA 0 mls/hr Titration Protocol 0.04 UNITS/MIN Ceftriaxone Sodium 2 gm/ 50 mls @ 100 mls/hr 01/28/25 09:00 01/28/25 08:26 Sodium Chloride IVPB 100 mls/hr Q24H TATYANA Administration Norepinephrine Bitartrate 8 mg in 250 mls @ 0 mls/hr 01/28/25 04:05 01/29/25 06:00 Levophed 8 Mg/D5w 250 Ml IV CONT 0 mcg/min .Q0M TATYANA 0 mls/hr Titration Protocol 0 MCG/MIN Fentanyl Citrate 2,500 mcg in 250 mls @ 10 mls/hr 01/28/25 09:10 01/29/25 06:00 Fentanyl 2,500 Mcg/Ns 250 Ml IV CONT 125 mcg/hr .Q25H TATYANA 12.5 mls/hr Titration Protocol 100 MCG/HR Midazolam HCl 100 mg in 100 mls @ 3 mls/hr 01/28/25 09:10 01/29/25 07:26 Versed 100 Mg/Ns 100 Ml IV CONT 4 mg/hr .[id number] TATYANA 4 mls/hr Administration Protocol 3 MG/HR Pantoprazole Sodium 80 mg/ 500 mls @ 50 mls/hr 01/28/25 12:00 01/29/25 00:06 Sodium Chloride IV CONT 50 mls/hr .Q10H TATYANA Administration Sodium Chloride 250 mls @ 30 mls/hr 01/29/25 04:57 01/29/25 05:34 Normal Saline Iv IV CONT 01/29/25 13:16 Not Given .Q8H20M STA Sodium Chloride 250 mls @ 30 mls/hr 01/29/25 05:03 01/29/25 05:34 Normal Saline Iv IV CONT 01/29/25 13:22 Not Given .Q8H20M STA Phytonadione 10 mg/ Dextrose 51 mls @ 100 mls/hr 01/29/25 09:00 IVPB 01/30/25 09:31 DAILY TATYANA Lactulose 20 gm 01/29/25 09:00 Lactulose 20 Gm/30 Ml Udc PO 01/31/25 08:59 TID TATYANA Multi-Ingred Cream/Lotion/Oil/Oint 1 applic 01/28/25 09:15 01/28/25 20:37 Mineral Oil/White Petrolatum Ointment EACH EYE 1 applic Q12HR TATYANA Administration Ondansetron HCl 4 mg 01/28/25 01:51 Ondansetron Inj 4 Mg/2 Ml Vial IV PUSH Q4H PRN Nausea Pantoprazole Sodium 40 mg 01/28/25 09:00 Pantoprazole Sodium Iv 40 Mg Vial IV PUSH QAM TATYANA Sodium Chloride 10 ml 01/28/25 14:00 01/29/25 05:11 Central Line Flush IV PUSH 10 ml Q8HR TATYANA Administration Sodium Chloride 20 ml 01/28/25 06:37 Central Line Flush IV PUSH PRN PRN after blood draws Radiology Results: ITS Impressions Abdomen/Pelvis CTA 01/28/25 00:08 IMPRESSION: Findings within the liver for which malignancy is suspected. Additional findings within the rectum for which acute hemorrhage is suspected (likely secondary to anorectal varices). No findings to suggest upper GI bleeding. 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 Incidental notation is made of cholelithiasis. Head CT 01/28/25 11:51 Impression: No significant abnormality seen. Abdomen X-Ray 01/28/25 13:57 IMPRESSION: 1. Nasogastric tube in stomach. Chest X-Ray 01/29/25 05:48 Impression: Mild bibasilar pulmonary edema/atelectasis with small pleural effusions, left greater than right. Support tubes, as above. Labs Labs: Laboratory Results - last 24 hr 01/27/25 01/28/25 01/28/25 21:44 08:38 10:25 WBC 18.9 H RBC 2.66 L Hgb 9.3 L Hct 27.3 L MCV 102.6 H MCH 35.0 H MCHC 34.1 RDW 19.7 H Plt Count 186 MPV 9.7 Immature Gran % (Auto) Neut % (Auto) Lymph % (Auto) [place] % (Auto) Eos % (Auto) Baso % (Auto) Lymph # (Auto) [place] # (Auto) Eos # (Auto) Baso # (Auto) Abs Immat Gran (auto) Absolute Neuts (auto) Absolute Nucleated RBC Nucleated RBC % % Immature Plt Fraction PT INR APTT Puncture Site ABG pH ABG pCO2 ABG pO2 ABG PO2/FiO2 Ratio ABG HCO3 ABG O2 Saturation ABG O2 Content ABG Base Excess A-a Gradient Oxyhemoglobin Carboxyhemoglobin Methemoglobin Reduced Hemoglobin Total Hemoglobin O2 Delivery Device O2 Liters/Min Minute Volume Vent Rate Vent Mode FiO2 Tidal Volume PEEP Peak Inspir Pressure Pressure Support Sodium Potassium Chloride Carbon Dioxide Anion Gap BUN Creatinine Estim Creat Clear Calc Estimated GFR Glucose POC Capillary Glucose 352 H Lactic Acid 4.3 H* Calcium Phosphorus Magnesium Total Bilirubin AST ALT Alkaline Phosphatase Ammonia C-Reactive Protein Total Protein Albumin Blood Type A Positive Antibody Screen Negative Crossmatch See Detail 01/28/25 01/28/25 01/28/25 10:45 12:33 14:40 WBC 18.6 H RBC 2.45 L Hgb 8.4 L Hct 25.1 L MCV 102.4 H MCH 34.3 H MCHC 33.5 RDW 19.8 H Plt Count 176 MPV 9.8 Immature Gran % (Auto) Neut % (Auto) Lymph % (Auto) [place] % (Auto) Eos % (Auto) Baso % (Auto) Lymph # (Auto) [place] # (Auto) Eos # (Auto) Baso # (Auto) Abs Immat Gran (auto) Absolute Neuts (auto) Absolute Nucleated RBC Nucleated RBC % % Immature Plt Fraction PT INR APTT Puncture Site Artline ABG pH 7.338 L ABG pCO2 36.5 ABG pO2 86.5 ABG PO2/FiO2 Ratio 2.16 ABG HCO3 19.2 L ABG O2 Saturation 96.1 ABG O2 Content 13.1 L ABG Base Excess -6.0 A-a Gradient 156.7 Oxyhemoglobin 95.0 Carboxyhemoglobin Methemoglobin Reduced Hemoglobin Total Hemoglobin 9.7 L O2 Delivery Device Ventilator O2 Liters/Min Not Reportable Minute Volume Not Reportable Vent Rate 22 Vent Mode Cmv FiO2 40 Tidal Volume 400 PEEP 5 Peak Inspir Pressure Not Reportable Pressure Support Not Reportable Sodium 135 L Potassium 5.2 H Chloride 106 Carbon Dioxide 23 Anion Gap 6 BUN 60 H Creatinine 1.37 H Estim Creat Clear Calc 61 Estimated GFR 39 L Glucose 191 H POC Capillary Glucose 174 H Lactic Acid Calcium 9.0 Phosphorus Magnesium Total Bilirubin 2.0 H AST 234 H ALT 83 H Alkaline Phosphatase 89 Ammonia C-Reactive Protein Total Protein 5.8 L Albumin 2.7 L Blood Type Antibody Screen Crossmatch 01/28/25 01/28/25 01/29/25 14:42 21:13 03:43 WBC 14.1 H 10.1 H RBC 2.08 L 2.15 L Hgb 7.2 L 7.3 L Hct 21.5 L 21.7 L MCV 103.4 H 100.9 H MCH 34.6 H 34.0 MCHC 33.5 33.6 RDW 19.8 H 19.2 H Plt Count 129 L 106 L MPV 9.5 9.8 Immature Gran % (Auto) 0.6 H Neut % (Auto) 63.7 Lymph % (Auto) 25.3 [place] % (Auto) 9.5 H Eos % (Auto) 0.6 Baso % (Auto) 0.3 Lymph # (Auto) 2.57 [place] # (Auto) 1.0 H Eos # (Auto) 0.1 Baso # (Auto) 0.0 Abs Immat Gran (auto) 0.06 H Absolute Neuts (auto) 6.5 Absolute Nucleated RBC 0.050 H Nucleated RBC % 0.5 H % Immature Plt Fraction 2.4 PT 20.3 H INR 1.8 APTT 32.1 Puncture Site ABG pH ABG pCO2 ABG pO2 ABG PO2/FiO2 Ratio ABG HCO3 ABG O2 Saturation ABG O2 Content ABG Base Excess A-a Gradient Oxyhemoglobin Carboxyhemoglobin Methemoglobin Reduced Hemoglobin Total Hemoglobin O2 Delivery Device O2 Liters/Min Minute Volume Vent Rate Vent Mode FiO2 Tidal Volume PEEP Peak Inspir Pressure Pressure Support Sodium 139 Potassium 4.3 Chloride 107 Carbon Dioxide 26 Anion Gap 6 BUN 65 H Creatinine 1.41 H Estim Creat Clear Calc 59 Estimated GFR 38 L Glucose 123 H POC Capillary Glucose Lactic Acid 2.7 H 1.5 Calcium 9.5 Phosphorus 3.3 Magnesium 1.9 Total Bilirubin 1.9 H AST 227 H ALT 94 H Alkaline Phosphatase 64 Ammonia 54 H C-Reactive Protein 4.0 H Total Protein 5.8 L Albumin 3.1 L Blood Type Antibody Screen Crossmatch 01/29/25 04:29 WBC RBC Hgb Hct MCV MCH MCHC RDW Plt Count MPV Immature Gran % (Auto) Neut % (Auto) Lymph % (Auto) [place] % (Auto) Eos % (Auto) Baso % (Auto) Lymph # (Auto) [place] # (Auto) Eos # (Auto) Baso # (Auto) Abs Immat Gran (auto) Absolute Neuts (auto) Absolute Nucleated RBC Nucleated RBC % % Immature Plt Fraction PT INR APTT Puncture Site Artline ABG pH 7.505 H* ABG pCO2 30.7 L ABG pO2 76.6 L ABG PO2/FiO2 Ratio 1.91 ABG HCO3 23.7 ABG O2 Saturation 96.5 ABG O2 Content 10.7 L ABG Base Excess 0.8 A-a Gradient 173.3 Oxyhemoglobin 94.8 Carboxyhemoglobin 0.8 Methemoglobin 0.0 Reduced Hemoglobin 4.4 Total Hemoglobin 7.9 L O2 Delivery Device Ventilator O2 Liters/Min Not Reportable Minute Volume Not Reportable Vent Rate 22 Vent Mode Cmv FiO2 40 Tidal Volume 400 PEEP 5 Peak Inspir Pressure Not Reportable Pressure Support Not Reportable Sodium Potassium Chloride Carbon Dioxide Anion Gap BUN Creatinine Estim Creat Clear Calc Estimated GFR Glucose POC Capillary Glucose Lactic Acid Calcium Phosphorus Magnesium Total Bilirubin AST ALT Alkaline Phosphatase Ammonia C-Reactive Protein Total Protein Albumin Blood Type Antibody Screen Crossmatch Quality VTE Prophylaxis VTE prophylaxis: mechanical ordered
[2025-01-29] MEDS: cefTRIAXone 2 GM in SODIUM CHLORIDE 0.9% IV 50 ML 100 ML IVPB (08:33)
[2025-01-29 08:35] LABS: Hematocrit 22.2 % (37.0-47.0); Hemoglobin 7.5 g/dL (12.0-15.0); Immature Platelet Fraction Pct 2.9 % (0.9-11.2); Mean Corpuscular HGB Conc 33.8 g/dl (32-36); Mean Corpuscular Hemoglobin 34.1 pg (26-34); Mean Corpuscular Volume 100.9 fl (80-100); Platelet Count Result 108 k/mm3 (150-375); Red Blood Count 2.20 M/mm3 (4.2-5.4); White Blood Count 9.4 K/mm3 (4.5-10.0)
[2025-01-29] MEDS: LACTULOSE 20 GM/30 ML UDC PO ×3 (08:39→17:07)
[2025-01-29] MEDS: PHYTONADIONE ADULT INJ 10 MG in DEXTROSE 5% IN WATER 50 ML 100 MG IVPB (08:39)
[2025-01-29] MEDS: MINERAL OIL/WHITE PETROLATUM OINTMENT 1 APPLIC EACH EYE ×2 (08:40→20:35)
--- NOTE | 2025-01-29 09:18 | PC.NURSE ---
Temp remains low at 96.7. MD made aware and orders received to place a bear hugger on patient.
--- NOTE | 2025-01-29 11:02 | PCFNICU ---
ICU Rounding Note: Pt current nutrition is NPO. Last recorded weight is 161.6 kg, up from 155.1 kg on admit. Bowel Motility: FMS Labs Reviewed: Glu 123, BUN 65, Alb 3.1, Hct 22.2, Hgb 7.5 Meds Noted: Fentanyl, Versed, Lactulose Skin: WNL Additional Notes: Patient remains on a mechanical vent. Getting 1 unit of blood today. NPO at this time, no plans for nutrition today. Following daily in ICU rounds.
[2025-01-29 13:32] LABS: Anion Gap 4 mmol/L (4-12); Blood Urea Nitrogen 65 mg/dL (7-17); Calcium 9.4 mg/dL (8.4-10.2); Carbon Dioxide 28 mmol/L (22-30); Chloride 104 mmol/L (98-107); Estimated CRCL calculation 65 ml/min; Estimated Glomerular Filt Rate 41; Glucose 104 mg/dL (65-110); Potassium 4.2 mmol/L (3.4-5.0); Sodium 136 mmol/L (137-145)
--- NOTE | 2025-01-29 14:16 | WPDGIPROGNO ---
Progress Note: A&P Assessment and Plan (1) Esophageal varices: Qualifiers: Esophageal varices bleeding: with bleeding Esophageal varices type: unspecified type Qualified Code(s): I85.01 - Esophageal varices with bleeding Code(s): I85.00 - Esophageal varices without bleeding Status: Acute Assessment and Plan: spurting blood from varix at cardia, treated with banding iv octreotide and protonix antibiotic if rebleeding then will need transfer for TIPS she is not longer in pressors, BP normalized will continue to follow (2) Acute upper GI bleed: Code(s): K92.2 - Gastrointestinal hemorrhage, unspecified Status: Acute (3) Hemorrhagic shock: Code(s): R57.8 - Other shock Status: Acute Assessment and Plan: resolved (4) Encephalopathy: Code(s): G93.40 - Encephalopathy, unspecified Status: Acute (5) Acute kidney injury: Code(s): N17.9 - Acute kidney failure, unspecified Status: Acute Assessment and Plan: creat 1.3 monitor (6) Alcoholic cirrhosis of liver with ascites: Code(s): K70.31 - Alcoholic cirrhosis of liver with ascites Status: Acute (7) Rectal varices: Code(s): K64.9 - Unspecified hemorrhoids Status: Acute (8) Abnormal CT of liver: Code(s): R93.2 - Abnormal findings on diagnostic imaging of liver and biliary tract Status: Acute Assessment and Plan: ? liver cancer pending AFP probably will need MRI liver protocol when more stable Subjective Date/time seen: 01/29/25 14:16 Interval history: s/p egd with varix banded, NGT with some blood but she is not longer on pressors Review of Systems Review of Systems: All systems reviewed & are unremarkable except as noted in HPI and below Exam Narrative: General: Patient is intubated and sedated in no acute distress HEENT:? Pupils unequal, R>L, sclera is icteric Neck:? supple Respiratory:? Coarse breath sounds bilaterally, decreased at bases, no wheezing, adequate air entry Cardiac:? S1 S2 normal, Abdomen:? soft, nontender, non distended, morbidly obese, hypoactive bowel sounds Extremities:?b/l edema of lower extremities Neuro:? Patient is intubated, sedated, does not open eyes or follow simple commands. Does withdraw to pain stimulus Skin:? Bilateral feet are cold Psych:? unable to assess Objective Data Vital Signs Vital Signs: Vital Signs - 24 hr 01/28/25 14:26 01/28/25 15:00 01/28/25 15:00 Temperature Pulse Rate 73 73 73 Respiratory Rate 22 H Blood Pressure 130/62 Pulse Oximetry 100 Oxygen Delivery Mechanical Ventilation Fraction of Inspired Oxygen 40 01/28/25 15:00 01/28/25 15:00 01/28/25 15:26 Temperature 98.0 F Pulse Rate 73 73 79 Respiratory Rate 22 H 22 H Blood Pressure 130/62 152/73 H Pulse Oximetry 100 Oxygen Delivery Fraction of Inspired Oxygen 01/28/25 15:30 01/28/25 15:30 01/28/25 15:49 Temperature 97.9 F Pulse Rate 79 79 82 Respiratory Rate 22 H Blood Pressure 151/73 H 151/73 H 145/71 H Pulse Oximetry 100 Oxygen Delivery Fraction of Inspired Oxygen 01/28/25 16:00 01/28/25 16:00 01/28/25 16:00 Temperature Pulse Rate 82 79 83 Respiratory Rate 22 H Blood Pressure 145/72 H Pulse Oximetry 100 Oxygen Delivery Mechanical Ventilation Fraction of Inspired Oxygen 40 01/28/25 16:00 01/28/25 16:00 01/28/25 16:30 Temperature 97.9 F Pulse Rate 83 84 Respiratory Rate 22 H Blood Pressure 141/71 H 145/86 H Pulse Oximetry 100 Oxygen Delivery Fraction of Inspired Oxygen 40 01/28/25 17:01 01/28/25 17:33 01/28/25 18:00 Temperature Pulse Rate 83 80 77 Respiratory Rate Blood Pressure 133/83 Pulse Oximetry 100 Oxygen Delivery Mechanical Ventilation Fraction of Inspired Oxygen 40 01/28/25 18:00 01/28/25 20:00 01/28/25 20:00 Temperature 97.9 F Pulse Rate 77 78 78 Respiratory Rate 22 H 22 H Blood Pressure 99/81 L 126/57 L Pulse Oximetry 100 Oxygen Delivery Fraction of Inspired Oxygen 01/28/25 20:00 01/28/25 20:00 01/28/25 20:00 Temperature 97.6 F Pulse Rate 78 78 78 Respiratory Rate 22 H 22 H Blood Pressure 126/57 L 126/57 L Pulse Oximetry 99 Oxygen Delivery Fraction of Inspired Oxygen 01/28/25 20:00 01/28/25 20:00 01/28/25 20:00 Temperature Pulse Rate 78 Respiratory Rate Blood Pressure Pulse Oximetry Oxygen Delivery Mechanical Ventilation Fraction of Inspired Oxygen 40 40 01/28/25 20:09 01/28/25 20:37 01/28/25 21:14 Temperature Pulse Rate 78 77 78 Respiratory Rate Blood Pressure 134/65 106/87 Pulse Oximetry 98 Oxygen Delivery Mechanical Ventilation Fraction of Inspired Oxygen 40 01/28/25 21:41 01/28/25 22:00 01/28/25 22:00 Temperature Pulse Rate 72 72 72 Respiratory Rate 22 H Blood Pressure 119/61 Pulse Oximetry Oxygen Delivery Fraction of Inspired Oxygen 01/28/25 22:00 01/28/25 22:00 01/28/25 22:00 Temperature Pulse Rate 72 72 72 Respiratory Rate 22 H Blood Pressure 98/72 L 98/72 L Pulse Oximetry Oxygen Delivery Fraction of Inspired Oxygen 01/28/25 22:00 01/28/25 22:15 01/28/25 22:16 Temperature 97.5 F L Pulse Rate 72 70 73 Respiratory Rate 22 H Blood Pressure 98/72 L 98/66 L Pulse Oximetry 100 100 Oxygen Delivery Mechanical Ventilation Fraction of Inspired Oxygen 40 01/28/25 23:49 01/28/25 23:50 01/29/25 00:00 Temperature 97.4 F L 97.4 F L 97.4 F L Pulse Rate 68 68 73 Respiratory Rate 22 H 22 H 22 H Blood Pressure 95/66 L 95/66 L 121/63 Pulse Oximetry 100 100 100 Oxygen Delivery Fraction of Inspired Oxygen 01/29/25 00:00 01/29/25 00:00 01/29/25 00:00 Temperature Pulse Rate 72 Respiratory Rate Blood Pressure Pulse Oximetry Oxygen Delivery Mechanical Ventilation Fraction of Inspired Oxygen 40 40 01/29/25 00:00 01/29/25 00:00 01/29/25 00:00 Temperature Pulse Rate 71 71 71 Respiratory Rate 22 H 22 H Blood Pressure 115/60 Pulse Oximetry Oxygen Delivery Fraction of Inspired Oxygen 01/29/25 00:00 01/29/25 00:06 01/29/25 01:06 Temperature 97.5 F L 97.3 F L Pulse Rate 71 71 69 Respiratory Rate 22 H 22 H Blood Pressure 115/60 115/60 116/60 Pulse Oximetry 100 100 Oxygen Delivery Fraction of Inspired Oxygen 01/29/25 01:38 01/29/25 01:47 01/29/25 02:00 Temperature 97.3 F L Pulse Rate 67 68 68 Respiratory Rate 22 H 22 H Blood Pressure 115/60 Pulse Oximetry 99 99 Oxygen Delivery Mechanical Ventilation Fraction of Inspired Oxygen 40 01/29/25 02:00 01/29/25 02:00 01/29/25 02:00 Temperature Pulse Rate 68 68 68 Respiratory Rate 22 H Blood Pressure 114/59 L 114/59 L Pulse Oximetry Oxygen Delivery Fraction of Inspired Oxygen 01/29/25 02:00 01/29/25 02:00 01/29/25 04:00 Temperature 97.3 F L 97.1 F L Pulse Rate 68 68 68 Respiratory Rate 22 H 22 H Blood Pressure 114/59 L 119/62 Pulse Oximetry 98 99 Oxygen Delivery Fraction of Inspired Oxygen 01/29/25 04:00 01/29/25 04:00 01/29/25 04:00 Temperature Pulse Rate 68 68 68 Respiratory Rate 22 H 22 H Blood Pressure 119/62 Pulse Oximetry Oxygen Delivery Fraction of Inspired Oxygen 01/29/25 04:00 01/29/25 04:00 01/29/25 04:00 Temperature Pulse Rate 68 Respiratory Rate Blood Pressure 119/62 Pulse Oximetry Oxygen Delivery Mechanical Ventilation Fraction of Inspired Oxygen 40 40 01/29/25 04:00 01/29/25 04:51 01/29/25 04:57 Temperature Pulse Rate 67 66 66 Respiratory Rate Blood Pressure Pulse Oximetry 97 97 Oxygen Delivery Mechanical Ventilation Mechanical Ventilation Fraction of Inspired Oxygen 40 01/29/25 05:04 01/29/25 05:10 01/29/25 05:10 Temperature Pulse Rate 70 70 Respiratory Rate 18 18 Blood Pressure Pulse Oximetry Oxygen Delivery Fraction of Inspired Oxygen 40 01/29/25 06:00 01/29/25 06:00 01/29/25 06:00 Temperature Pulse Rate 74 74 74 Respiratory Rate 18 18 Blood Pressure 122/59 L Pulse Oximetry Oxygen Delivery Fraction of Inspired Oxygen 01/29/25 06:00 01/29/25 06:00 01/29/25 06:00 Temperature 97.0 F L Pulse Rate 74 74 74 Respiratory Rate 18 Blood Pressure 124/59 L 120/58 L Pulse Oximetry 94 Oxygen Delivery Fraction of Inspired Oxygen 01/29/25 06:12 01/29/25 06:28 01/29/25 07:26 Temperature 97.1 F L 97.0 F L Pulse Rate 75 76 69 Respiratory Rate 18 18 18 Blood Pressure 121/58 L 135/70 Pulse Oximetry 95 94 Oxygen Delivery Fraction of Inspired Oxygen 01/29/25 07:26 01/29/25 07:28 01/29/25 07:28 Temperature 97.7 F 96.7 F L Pulse Rate 69 69 69 Respiratory Rate 18 18 18 Blood Pressure 128/68 128/68 Pulse Oximetry 97 97 Oxygen Delivery Fraction of Inspired Oxygen 01/29/25 07:54 01/29/25 08:00 01/29/25 08:00 Temperature 96.8 F L 96.8 F L Pulse Rate 69 68 68 Respiratory Rate 18 18 18 Blood Pressure 130/69 130/69 Pulse Oximetry 97 97 97 Oxygen Delivery Mechanical Ventilation Fraction of Inspired Oxygen 40 01/29/25 08:00 01/29/25 08:00 01/29/25 08:00 Temperature Pulse Rate 70 68 Respiratory Rate Blood Pressure 130/69 Pulse Oximetry 97 Oxygen Delivery Mechanical Ventilation Fraction of Inspired Oxygen 40 40 01/29/25 08:00 01/29/25 08:00 01/29/25 08:00 Temperature Pulse Rate 68 68 68 Respiratory Rate 18 18 Blood Pressure 130/69 Pulse Oximetry Oxygen Delivery Fraction of Inspired Oxygen 01/29/25 08:00 01/29/25 08:15 01/29/25 09:13 Temperature 96.8 F L 96.7 F L Pulse Rate 70 69 70 Respiratory Rate 18 18 Blood Pressure 127/67 131/69 Pulse Oximetry 98 98 Oxygen Delivery Fraction of Inspired Oxygen 01/29/25 09:23 01/29/25 09:38 01/29/25 09:53 Temperature 96.7 F L 96.9 F L 96.8 F L Pulse Rate Respiratory Rate Blood Pressure Pulse Oximetry Oxygen Delivery Fraction of Inspired Oxygen 01/29/25 10:00 01/29/25 10:00 01/29/25 10:00 Temperature Pulse Rate 67 67 67 Respiratory Rate 18 Blood Pressure 123/66 123/66 Pulse Oximetry Oxygen Delivery Fraction of Inspired Oxygen 01/29/25 10:00 01/29/25 10:08 01/29/25 10:13 Temperature 96.8 F L 96.8 F L 96.9 F L Pulse Rate 67 67 Respiratory Rate 18 18 Blood Pressure 123/66 123/65 Pulse Oximetry 98 98 Oxygen Delivery Fraction of Inspired Oxygen 01/29/25 10:23 01/29/25 10:53 01/29/25 11:12 Temperature 96.9 F L 97.0 F L Pulse Rate 66 Respiratory Rate Blood Pressure Pulse Oximetry 97 Oxygen Delivery Mechanical Ventilation Fraction of Inspired Oxygen 40 01/29/25 11:23 01/29/25 11:35 01/29/25 11:59 Temperature 97.1 F L 97.2 F L 97.4 F L Pulse Rate 67 Respiratory Rate 18 Blood Pressure 118/63 Pulse Oximetry 98 Oxygen Delivery Fraction of Inspired Oxygen 01/29/25 12:00 01/29/25 12:00 01/29/25 12:00 Temperature Pulse Rate 66 67 Respiratory Rate 18 Blood Pressure Pulse Oximetry 97 Oxygen Delivery Mechanical Ventilation Fraction of Inspired Oxygen 40 40 01/29/25 14:00 Temperature Pulse Rate 67 Respiratory Rate Blood Pressure Pulse Oximetry 97 Oxygen Delivery Mechanical Ventilation Fraction of Inspired Oxygen 40 Intake/Output Intake/Output: Intake & Output 01/26/25 01/27/25 01/28/25 01/29/25 23:59 23:59 23:59 23:59 Intake Total 3430.1 2742.8 Output Total 50 1025 550 Balance -50 2405.1 2192.8 Meds/Results Medications: Active Medications Generic Name Dose Route Start Last Admin Trade Name Freq PRN Reason Stop Dose Admin Octreotide Acetate 500 mcg/ 100 mls @ 10 mls/hr 01/27/25 22:00 01/29/25 14:10 Sodium Chloride IV CONT 50 mcg/hr .Q10H TATYANA 10 mls/hr Administration 50 MCG/HR Vasopressin 100 units/ 100 mls @ 2.4 mls/hr 01/27/25 21:50 01/29/25 10:00 Dextrose IV CONT 0 units/min .[id number] TATYANA 0 mls/hr Titration Protocol 0.04 UNITS/MIN Ceftriaxone Sodium 2 gm/ 50 mls @ 100 mls/hr 01/28/25 09:00 01/29/25 09:03 Sodium Chloride IVPB Infused Q24H TATYANA Infusion Norepinephrine Bitartrate 8 mg in 250 mls @ 0 mls/hr 01/28/25 04:05 01/29/25 10:00 Levophed 8 Mg/D5w 250 Ml IV CONT 0 mcg/min .Q0M TATYANA 0 mls/hr Titration Protocol 0 MCG/MIN Fentanyl Citrate 2,500 mcg in 250 mls @ 10 mls/hr 01/28/25 09:10 01/29/25 10:00 Fentanyl 2,500 Mcg/Ns 250 Ml IV CONT 125 mcg/hr .Q25H TATYANA 12.5 mls/hr Titration Protocol 100 MCG/HR Midazolam HCl 100 mg in 100 mls @ 3 mls/hr 01/28/25 09:10 01/29/25 08:00 Versed 100 Mg/Ns 100 Ml IV CONT 4 mg/hr .[id number] TATYANA 4 mls/hr Titration Protocol 3 MG/HR Pantoprazole Sodium 80 mg/ 500 mls @ 50 mls/hr 01/28/25 12:00 01/29/25 10:00 Sodium Chloride IV CONT 50 mls/hr .Q10H TATYANA Administration Phytonadione 10 mg/ Dextrose 51 mls @ 100 mls/hr 01/29/25 09:00 01/29/25 09:10 IVPB 01/30/25 09:31 Infused DAILY TATYANA Infusion Lactulose 20 gm 01/29/25 09:00 01/29/25 13:37 Lactulose 20 Gm/30 Ml Udc PO 01/31/25 08:59 20 gm TID TATYANA Administration Multi-Ingred Cream/Lotion/Oil/Oint 1 applic 01/28/25 09:15 01/29/25 08:40 Mineral Oil/White Petrolatum Ointment EACH EYE 1 applic Q12HR TATYANA Administration Ondansetron HCl 4 mg 01/28/25 01:51 Ondansetron Inj 4 Mg/2 Ml Vial IV PUSH Q4H PRN Nausea Pantoprazole Sodium 40 mg 01/28/25 09:00 Pantoprazole Sodium Iv 40 Mg Vial IV PUSH QAM TATYANA Sodium Chloride 10 ml 01/28/25 14:00 01/29/25 13:37 Central Line Flush IV PUSH 10 ml Q8HR TATYANA Administration Sodium Chloride 20 ml 01/28/25 06:37 Central Line Flush IV PUSH PRN PRN after blood draws Radiology Results: ITS Impressions Abdomen/Pelvis CTA 01/28/25 00:08 IMPRESSION: Findings within the liver for which malignancy is suspected. Additional findings within the rectum for which acute hemorrhage is suspected (likely secondary to anorectal varices). No findings to suggest upper GI bleeding. 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 Incidental notation is made of cholelithiasis. Head CT 01/28/25 11:51 Impression: No significant abnormality seen. Abdomen X-Ray 01/28/25 13:57 IMPRESSION: 1. Nasogastric tube in stomach. Chest X-Ray 01/29/25 05:48 Impression: Mild bibasilar pulmonary edema/atelectasis with small pleural effusions, left greater than right. Support tubes, as above. Labs Labs: Laboratory Results - last 24 hr 01/27/25 01/28/25 01/28/25 21:44 07:18 14:40 WBC 18.6 H RBC 2.45 L Hgb 8.4 L Hct 25.1 L MCV 102.4 H MCH 34.3 H MCHC 33.5 RDW 19.8 H Plt Count 176 MPV 9.8 Immature Gran % (Auto) Neut % (Auto) Lymph % (Auto) George % (Auto) Eos % (Auto) Baso % (Auto) Lymph # (Auto) George # (Auto) Eos # (Auto) Baso # (Auto) Abs Immat Gran (auto) Absolute Neuts (auto) Absolute Nucleated RBC Nucleated RBC % % Immature Plt Fraction PT INR APTT Puncture Site ABG pH ABG pCO2 ABG pO2 ABG PO2/FiO2 Ratio ABG HCO3 ABG O2 Saturation ABG O2 Content ABG Base Excess A-a Gradient Oxyhemoglobin Carboxyhemoglobin Methemoglobin Reduced Hemoglobin Total Hemoglobin O2 Delivery Device O2 Liters/Min Minute Volume Vent Rate Vent Mode FiO2 Tidal Volume PEEP Peak Inspir Pressure Pressure Support Sodium 135 L Potassium 5.2 H Chloride 106 Carbon Dioxide 23 Anion Gap 6 BUN 60 H Creatinine 1.37 H Estim Creat Clear Calc 61 Estimated GFR 39 L Glucose 191 H Lactic Acid Calcium 9.0 Phosphorus Magnesium Total Bilirubin 2.0 H AST 234 H ALT 83 H Alkaline Phosphatase 89 Ammonia C-Reactive Protein Total Protein 5.8 L Albumin 2.7 L Tumor Marker AFP 19603.0 H Blood Type A Positive Antibody Screen Negative Crossmatch See Detail 01/28/25 01/28/25 01/29/25 14:42 21:13 03:43 WBC 14.1 H 10.1 H RBC 2.08 L 2.15 L Hgb 7.2 L 7.3 L Hct 21.5 L 21.7 L MCV 103.4 H 100.9 H MCH 34.6 H 34.0 MCHC 33.5 33.6 RDW 19.8 H 19.2 H Plt Count 129 L 106 L MPV 9.5 9.8 Immature Gran % (Auto) 0.6 H Neut % (Auto) 63.7 Lymph % (Auto) 25.3 George % (Auto) 9.5 H Eos % (Auto) 0.6 Baso % (Auto) 0.3 Lymph # (Auto) 2.57 George # (Auto) 1.0 H Eos # (Auto) 0.1 Baso # (Auto) 0.0 Abs Immat Gran (auto) 0.06 H Absolute Neuts (auto) 6.5 Absolute Nucleated RBC 0.050 H Nucleated RBC % 0.5 H % Immature Plt Fraction 2.4 PT 20.3 H INR 1.8 APTT 32.1 Puncture Site ABG pH ABG pCO2 ABG pO2 ABG PO2/FiO2 Ratio ABG HCO3 ABG O2 Saturation ABG O2 Content ABG Base Excess A-a Gradient Oxyhemoglobin Carboxyhemoglobin Methemoglobin Reduced Hemoglobin Total Hemoglobin O2 Delivery Device O2 Liters/Min Minute Volume Vent Rate Vent Mode FiO2 Tidal Volume PEEP Peak Inspir Pressure Pressure Support Sodium 139 Potassium 4.3 Chloride 107 Carbon Dioxide 26 Anion Gap 6 BUN 65 H Creatinine 1.41 H Estim Creat Clear Calc 59 Estimated GFR 38 L Glucose 123 H Lactic Acid 2.7 H 1.5 Calcium 9.5 Phosphorus 3.3 Magnesium 1.9 Total Bilirubin 1.9 H AST 227 H ALT 94 H Alkaline Phosphatase 64 Ammonia 54 H C-Reactive Protein 4.0 H Total Protein 5.8 L Albumin 3.1 L Tumor Marker AFP Blood Type Antibody Screen Crossmatch 01/29/25 01/29/25 01/29/25 04:29 08:28 13:03 WBC 9.4 RBC 2.20 L Hgb 7.5 L Hct 22.2 L MCV 100.9 H MCH 34.1 H MCHC 33.8 RDW 19.7 H Plt Count 108 L MPV 10.3 Immature Gran % (Auto) Neut % (Auto) Lymph % (Auto) George % (Auto) Eos % (Auto) Baso % (Auto) Lymph # (Auto) George # (Auto) Eos # (Auto) Baso # (Auto) Abs Immat Gran (auto) Absolute Neuts (auto) Absolute Nucleated RBC Nucleated RBC % % Immature Plt Fraction 2.9 PT INR APTT Puncture Site Artline ABG pH 7.505 H* ABG pCO2 30.7 L ABG pO2 76.6 L ABG PO2/FiO2 Ratio 1.91 ABG HCO3 23.7 ABG O2 Saturation 96.5 ABG O2 Content 10.7 L ABG Base Excess 0.8 A-a Gradient 173.3 Oxyhemoglobin 94.8 Carboxyhemoglobin 0.8 Methemoglobin 0.0 Reduced Hemoglobin 4.4 Total Hemoglobin 7.9 L O2 Delivery Device Ventilator O2 Liters/Min Not Reportable Minute Volume Not Reportable Vent Rate 22 Vent Mode Cmv FiO2 40 Tidal Volume 400 PEEP 5 Peak Inspir Pressure Not Reportable Pressure Support Not Reportable Sodium 136 L Potassium 4.2 Chloride 104 Carbon Dioxide 28 Anion Gap 4 BUN 65 H Creatinine 1.31 H Estim Creat Clear Calc 65 Estimated GFR 41 L Glucose 104 Lactic Acid Calcium 9.4 Phosphorus Magnesium Total Bilirubin AST ALT Alkaline Phosphatase Ammonia C-Reactive Protein Total Protein Albumin Tumor Marker AFP Blood Type Antibody Screen Crossmatch
[2025-01-29 14:28] LABS: Hematocrit 24.0 % (37.0-47.0); Hemoglobin 8.3 g/dL (12.0-15.0); Mean Corpuscular HGB Conc 34.6 g/dl (32-36); Mean Corpuscular Hemoglobin 34.2 pg (26-34); Mean Corpuscular Volume 98.8 fl (80-100); Platelet Count Result 103 k/mm3 (150-375); Red Blood Count 2.43 M/mm3 (4.2-5.4); White Blood Count 9.6 K/mm3 (4.5-10.0)
--- NOTE | 2025-01-29 14:38 | PM.IMPN ---
Progress Note: A&P Assessment and Plan (1) Hemorrhagic shock: Code(s): R57.8 - Other shock Status: Acute Assessment and Plan: Pt presented with rectal bleed, CT showed esophageal and rectal varices. S/p EGD with banding /p 2units and receiving a 3 rd unit this morning Monitor H and h CT AP showed finding suspicious of liver ca Continue PPI and octreotide per GI (2) Esophageal varices: Qualifiers: Esophageal varices bleeding: with bleeding Esophageal varices type: unspecified type Qualified Code(s): I85.01 - Esophageal varices with bleeding Code(s): I85.00 - Esophageal varices without bleeding Status: Acute Assessment and Plan: Esophageal varices as seen on CTA abdomen and pelvis. -appreciate GI evaluation S/p EGD with variceal banding in stonach and esophagus -NG tube with bloody drainage, has slowed down, drainage in the FMS has also slowed down (3) Rectal varices: Code(s): K64.9 - Unspecified hemorrhoids Status: Acute Assessment and Plan: Likely related to alcoholic cirrhosis, (4) Alcoholic cirrhosis of liver with ascites: Code(s): K70.31 - Alcoholic cirrhosis of liver with ascites Status: Acute Assessment and Plan: History of alcoholic cirrhosis -LFTs and bilirubin elevated but stable -could be related to shock liver, cirrhosis, bleeding -continue ceftriaxone (01/28) for SBP prophylaxis -continue to monitor LFTs and bilirubin -INR elevated, will give addition vitamin K -continue to monitor (5) Airway compromise: Code(s): J98.8 - Other specified respiratory disorders Status: Acute Assessment and Plan: Patient encephalopathic with elevated ammonia level, not protecting her airway, also intubated for aspiration prevention and for EGD -01/28: Intubated patient for airway protection due to encephalopathy -currently on CMV mode of ventilation, peep of 5 and 40% FiO2 -chest x-ray and ABGs reviewed, will increase PEEP to 8, decrease rate to 18, maintain O2 sats > 92% -sedated with fentanyl and Versed infusion, maintain RASS of 0 to -2, daily SAT and SBT (6) Acute kidney injury: Code(s): N17.9 - Acute kidney failure, unspecified Status: Acute Assessment and Plan: Acute kidney injury, likely related to hemorrhagic shock -low urine output, creatinine gradually trending up -off pressors, blood pressures remained stable, will allow higher MAP, for adequate end organ perfusion -continue to monitor urine output, renal function electrolytes (7) Encephalopathy: Code(s): G93.40 - Encephalopathy, unspecified Status: Acute Assessment and Plan: Likely related to hyperammonemia -continue lactulose -continue to monitor ammonia level Plan DVT prophylaxis: SCDs, no chemoprophylaxis due to hemorrhagic shock and GI bleed Stress ulcer prophylaxis: Protonix infusion Nutrition: NPO Code Status: Full code Subjective Date/time seen: 01/29/25 14:38 Interval history: Intubated. s/p EGD receiving 1 unit of pRBC at the time of this encounter Review of Systems Review of Systems: Review of systems unobtainable due to patient's confusion All systems reviewed & are unremarkable except as noted in HPI and below ROS unobtainable: Yes unobtainable due to endotracheal tube, unobtainable due to medical condition and unobtainable due to mental status Exam Narrative: General: Patient is intubated and sedated in no acute distress HEENT:? Pupils unequal, R>L, sclera is icteric Neck:? supple Respiratory:? Coarse breath sounds bilaterally, decreased at bases, no wheezing, adequate air entry Cardiac:? S1 S2 normal, Abdomen:? soft, nontender, non distended, morbidly obese, hypoactive bowel sounds Extremities:?b/l edema of lower extremities, dopplerable pedal pulse is, Neuro:? Patient is intubated, sedated, does not open eyes or follow simple commands. Does withdraw to pain stimulus Skin:? Bilateral feet are cold Psych:? unable to assess Const: Other: Morbidly obese, acutely ill-appearing, agitated and restless and difficult to redirect HENMT: Other: Head is normocephalic atraumatic, mucous membranes are tacky, crowded posterior oropharynx, right NG tube present with maroon drainage Eyes: Other: Pupils are equal and reactive, positive conjunctival pallor, mild scleral icterus noted Neck: Other: Large neck circumference, no lymphadenopathy, no JVD Resp: Other: Regular rate, regular rhythm, 2+ bilateral radial pedal pulses Cardio: Other: Sinus tachycardia, 2 no murmur, no JVD GI: Other: Distended, tense, no fluid wave, generalized discomfort on palpation : Other: Simon catheter in place with clear yellow urine Back/Spine/Pelvis: Other: Incontinent of melenic stool rectal tube in place but no stool within the fecal management system Skin: Other: Generalized pallor, non jaundice, chronic skin changes to bilateral lower extremities consistent with peripheral vascular disease and or venous stasis dermatitis Neuro: Other: Patient is alert oriented person it is unclear whether she realized that she is in the hospital or not she states she does not know the month or year and cannot tell me why she is in the hospital, she is moving all extremities equally and localizing to pain Extrem: Other: No cyanosis, no pitting edema, moves all extremities equally Psych: Other: Agitated, restless, difficult to redirect, poor judgment and insight Objective Data Vital Signs Vital Signs: Vital Signs - 24 hr 01/28/25 15:00 01/28/25 15:00 01/28/25 15:00 Temperature Pulse Rate 73 73 73 Respiratory Rate 22 H 22 H Blood Pressure 130/62 Pulse Oximetry Oxygen Delivery Fraction of Inspired Oxygen 01/28/25 15:00 01/28/25 15:26 01/28/25 15:30 Temperature 98.0 F Pulse Rate 73 79 79 Respiratory Rate 22 H Blood Pressure 130/62 152/73 H 151/73 H Pulse Oximetry 100 Oxygen Delivery Fraction of Inspired Oxygen 01/28/25 15:30 01/28/25 15:49 01/28/25 16:00 Temperature 97.9 F Pulse Rate 79 82 82 Respiratory Rate 22 H Blood Pressure 151/73 H 145/71 H 145/72 H Pulse Oximetry 100 Oxygen Delivery Fraction of Inspired Oxygen 01/28/25 16:00 01/28/25 16:00 01/28/25 16:00 Temperature Pulse Rate 79 83 Respiratory Rate 22 H Blood Pressure Pulse Oximetry 100 Oxygen Delivery Mechanical Ventilation Fraction of Inspired Oxygen 40 40 01/28/25 16:00 01/28/25 16:30 01/28/25 17:01 Temperature 97.9 F Pulse Rate 83 84 83 Respiratory Rate 22 H Blood Pressure 141/71 H 145/86 H 133/83 Pulse Oximetry 100 Oxygen Delivery Fraction of Inspired Oxygen 01/28/25 17:33 01/28/25 18:00 01/28/25 18:00 Temperature 97.9 F Pulse Rate 80 77 77 Respiratory Rate 22 H Blood Pressure 99/81 L Pulse Oximetry 100 100 Oxygen Delivery Mechanical Ventilation Fraction of Inspired Oxygen 40 01/28/25 20:00 01/28/25 20:00 01/28/25 20:00 Temperature Pulse Rate 78 78 78 Respiratory Rate 22 H Blood Pressure 126/57 L 126/57 L Pulse Oximetry Oxygen Delivery Fraction of Inspired Oxygen 01/28/25 20:00 01/28/25 20:00 01/28/25 20:00 Temperature 97.6 F Pulse Rate 78 78 Respiratory Rate 22 H 22 H Blood Pressure 126/57 L Pulse Oximetry 99 Oxygen Delivery Mechanical Ventilation Fraction of Inspired Oxygen 40 01/28/25 20:00 01/28/25 20:00 01/28/25 20:09 Temperature Pulse Rate 78 78 Respiratory Rate Blood Pressure Pulse Oximetry 98 Oxygen Delivery Mechanical Ventilation Fraction of Inspired Oxygen 40 40 01/28/25 20:37 01/28/25 21:14 01/28/25 21:41 Temperature Pulse Rate 77 78 72 Respiratory Rate Blood Pressure 134/65 106/87 119/61 Pulse Oximetry Oxygen Delivery Fraction of Inspired Oxygen 01/28/25 22:00 01/28/25 22:00 01/28/25 22:00 Temperature Pulse Rate 72 72 72 Respiratory Rate 22 H Blood Pressure 98/72 L Pulse Oximetry Oxygen Delivery Fraction of Inspired Oxygen 01/28/25 22:00 01/28/25 22:00 01/28/25 22:00 Temperature 97.5 F L Pulse Rate 72 72 72 Respiratory Rate 22 H 22 H Blood Pressure 98/72 L 98/72 L Pulse Oximetry 100 Oxygen Delivery Fraction of Inspired Oxygen 01/28/25 22:15 01/28/25 22:16 01/28/25 23:49 Temperature 97.4 F L Pulse Rate 70 73 68 Respiratory Rate 22 H Blood Pressure 98/66 L 95/66 L Pulse Oximetry 100 100 Oxygen Delivery Mechanical Ventilation Fraction of Inspired Oxygen 40 01/28/25 23:50 01/29/25 00:00 01/29/25 00:00 Temperature 97.4 F L 97.4 F L Pulse Rate 68 73 Respiratory Rate 22 H 22 H Blood Pressure 95/66 L 121/63 Pulse Oximetry 100 100 Oxygen Delivery Mechanical Ventilation Fraction of Inspired Oxygen 40 01/29/25 00:00 01/29/25 00:00 01/29/25 00:00 Temperature Pulse Rate 72 71 Respiratory Rate 22 H Blood Pressure Pulse Oximetry Oxygen Delivery Fraction of Inspired Oxygen 40 01/29/25 00:00 01/29/25 00:00 01/29/25 00:00 Temperature Pulse Rate 71 71 71 Respiratory Rate 22 H Blood Pressure 115/60 115/60 Pulse Oximetry Oxygen Delivery Fraction of Inspired Oxygen 01/29/25 00:06 01/29/25 01:06 01/29/25 01:38 Temperature 97.5 F L 97.3 F L 97.3 F L Pulse Rate 71 69 67 Respiratory Rate 22 H 22 H 22 H Blood Pressure 115/60 116/60 115/60 Pulse Oximetry 100 100 99 Oxygen Delivery Fraction of Inspired Oxygen 01/29/25 01:47 01/29/25 02:00 01/29/25 02:00 Temperature Pulse Rate 68 68 68 Respiratory Rate 22 H Blood Pressure 114/59 L Pulse Oximetry 99 Oxygen Delivery Mechanical Ventilation Fraction of Inspired Oxygen 40 01/29/25 02:00 01/29/25 02:00 01/29/25 02:00 Temperature Pulse Rate 68 68 68 Respiratory Rate 22 H Blood Pressure 114/59 L Pulse Oximetry Oxygen Delivery Fraction of Inspired Oxygen 01/29/25 02:00 01/29/25 04:00 01/29/25 04:00 Temperature 97.3 F L 97.1 F L Pulse Rate 68 68 68 Respiratory Rate 22 H 22 H 22 H Blood Pressure 114/59 L 119/62 Pulse Oximetry 98 99 Oxygen Delivery Fraction of Inspired Oxygen 01/29/25 04:00 01/29/25 04:00 01/29/25 04:00 Temperature Pulse Rate 68 68 68 Respiratory Rate 22 H Blood Pressure 119/62 119/62 Pulse Oximetry Oxygen Delivery Fraction of Inspired Oxygen 01/29/25 04:00 01/29/25 04:00 01/29/25 04:00 Temperature Pulse Rate 67 Respiratory Rate Blood Pressure Pulse Oximetry Oxygen Delivery Mechanical Ventilation Fraction of Inspired Oxygen 40 40 01/29/25 04:51 01/29/25 04:57 01/29/25 05:04 Temperature Pulse Rate 66 66 Respiratory Rate Blood Pressure Pulse Oximetry 97 97 Oxygen Delivery Mechanical Ventilation Mechanical Ventilation Fraction of Inspired Oxygen 40 40 01/29/25 05:10 01/29/25 05:10 01/29/25 06:00 Temperature Pulse Rate 70 70 74 Respiratory Rate 18 18 Blood Pressure 122/59 L Pulse Oximetry Oxygen Delivery Fraction of Inspired Oxygen 01/29/25 06:00 08/07/25 06:00 01/29/25 06:00 Temperature Pulse Rate 74 74 74 Respiratory Rate 18 18 Blood Pressure 124/59 L Pulse Oximetry Oxygen Delivery Fraction of Inspired Oxygen 01/29/25 06:00 01/29/25 06:00 01/29/25 06:12 Temperature 97.0 F L 97.1 F L Pulse Rate 74 74 75 Respiratory Rate 18 18 Blood Pressure 120/58 L 121/58 L Pulse Oximetry 94 95 Oxygen Delivery Fraction of Inspired Oxygen 01/29/25 06:28 01/29/25 07:26 01/29/25 07:26 Temperature 97.0 F L Pulse Rate 76 69 69 Respiratory Rate 18 18 18 Blood Pressure 135/70 Pulse Oximetry 94 Oxygen Delivery Fraction of Inspired Oxygen 01/29/25 07:28 01/29/25 07:28 01/29/25 07:54 Temperature 97.7 F 96.7 F L 96.8 F L Pulse Rate 69 69 69 Respiratory Rate 18 18 18 Blood Pressure 128/68 128/68 130/69 Pulse Oximetry 97 97 97 Oxygen Delivery Fraction of Inspired Oxygen 01/29/25 08:00 01/29/25 08:00 01/29/25 08:00 Temperature 96.8 F L Pulse Rate 68 68 Respiratory Rate 18 18 Blood Pressure 130/69 Pulse Oximetry 97 97 Oxygen Delivery Mechanical Ventilation Fraction of Inspired Oxygen 40 40 01/29/25 08:00 01/29/25 08:00 01/29/25 08:00 Temperature Pulse Rate 70 68 68 Respiratory Rate 18 Blood Pressure 130/69 Pulse Oximetry 97 Oxygen Delivery Mechanical Ventilation Fraction of Inspired Oxygen 40 01/29/25 08:00 01/29/25 08:00 01/29/25 08:00 Temperature Pulse Rate 68 68 70 Respiratory Rate 18 Blood Pressure 130/69 Pulse Oximetry Oxygen Delivery Fraction of Inspired Oxygen 01/29/25 08:15 01/29/25 09:13 01/29/25 09:23 Temperature 96.8 F L 96.7 F L 96.7 F L Pulse Rate 69 70 Respiratory Rate 18 18 Blood Pressure 127/67 131/69 Pulse Oximetry 98 98 Oxygen Delivery Fraction of Inspired Oxygen 01/29/25 09:38 01/29/25 09:53 01/29/25 10:00 Temperature 96.9 F L 96.8 F L Pulse Rate 67 Respiratory Rate Blood Pressure 123/66 Pulse Oximetry Oxygen Delivery Fraction of Inspired Oxygen 01/29/25 10:00 01/29/25 10:00 01/29/25 10:00 Temperature 96.8 F L Pulse Rate 67 67 67 Respiratory Rate 18 18 Blood Pressure 123/66 123/66 Pulse Oximetry 98 Oxygen Delivery Fraction of Inspired Oxygen 01/29/25 10:08 01/29/25 10:13 01/29/25 10:23 Temperature 96.8 F L 96.9 F L 96.9 F L Pulse Rate 67 Respiratory Rate 18 Blood Pressure 123/65 Pulse Oximetry 98 Oxygen Delivery Fraction of Inspired Oxygen 01/29/25 10:53 01/29/25 11:12 01/29/25 11:23 Temperature 97.0 F L 97.1 F L Pulse Rate 66 Respiratory Rate Blood Pressure Pulse Oximetry 97 Oxygen Delivery Mechanical Ventilation Fraction of Inspired Oxygen 40 01/29/25 11:35 01/29/25 11:59 01/29/25 12:00 Temperature 97.2 F L 97.4 F L Pulse Rate 67 66 Respiratory Rate 18 Blood Pressure 118/63 Pulse Oximetry 98 Oxygen Delivery Fraction of Inspired Oxygen 01/29/25 12:00 01/29/25 12:00 01/29/25 14:00 Temperature Pulse Rate 67 67 Respiratory Rate 18 Blood Pressure Pulse Oximetry 97 97 Oxygen Delivery Mechanical Ventilation Mechanical Ventilation Fraction of Inspired Oxygen 40 40 40 01/29/25 14:00 Temperature 97.6 F Pulse Rate 68 Respiratory Rate 18 Blood Pressure 125/65 Pulse Oximetry 96 Oxygen Delivery Fraction of Inspired Oxygen Intake/Output Intake/Output: Intake & Output 01/26/25 01/27/25 01/28/25 01/29/25 23:59 23:59 23:59 23:59 Intake Total 3430.1 2742.8 Output Total 50 1025 550 Balance -50 2405.1 2192.8 Meds/Results Medications: Active Medications Generic Name Dose Route Start Last Admin Trade Name Freq PRN Reason Stop Dose Admin Octreotide Acetate 500 mcg/ 100 mls @ 10 mls/hr 01/27/25 22:00 01/29/25 14:10 Sodium Chloride IV CONT 50 mcg/hr .Q10H TATYANA 10 mls/hr Administration 50 MCG/HR Vasopressin 100 units/ 100 mls @ 2.4 mls/hr 01/27/25 21:50 01/29/25 10:00 Dextrose IV CONT 0 units/min .[id number] TATYANA 0 mls/hr Titration Protocol 0.04 UNITS/MIN Ceftriaxone Sodium 2 gm/ 50 mls @ 100 mls/hr 01/28/25 09:00 01/29/25 09:03 Sodium Chloride IVPB Infused Q24H TATYANA Infusion Norepinephrine Bitartrate 8 mg in 250 mls @ 0 mls/hr 01/28/25 04:05 01/29/25 10:00 Levophed 8 Mg/D5w 250 Ml IV CONT 0 mcg/min .Q0M TATYANA 0 mls/hr Titration Protocol 0 MCG/MIN Fentanyl Citrate 2,500 mcg in 250 mls @ 10 mls/hr 01/28/25 09:10 01/29/25 10:00 Fentanyl 2,500 Mcg/Ns 250 Ml IV CONT 125 mcg/hr .Q25H TATYANA 12.5 mls/hr Titration Protocol 100 MCG/HR Midazolam HCl 100 mg in 100 mls @ 3 mls/hr 01/28/25 09:10 01/29/25 08:00 Versed 100 Mg/Ns 100 Ml IV CONT 4 mg/hr .[id number] TATYANA 4 mls/hr Titration Protocol 3 MG/HR Pantoprazole Sodium 80 mg/ 500 mls @ 50 mls/hr 01/28/25 12:00 01/29/25 10:00 Sodium Chloride IV CONT 50 mls/hr .Q10H TATYANA Administration Phytonadione 10 mg/ Dextrose 51 mls @ 100 mls/hr 01/29/25 09:00 01/29/25 09:10 IVPB 01/30/25 09:31 Infused DAILY TATYANA Infusion Lactulose 20 gm 01/29/25 09:00 01/29/25 13:37 Lactulose 20 Gm/30 Ml Udc PO 01/31/25 08:59 20 gm TID TATYANA Administration Multi-Ingred Cream/Lotion/Oil/Oint 1 applic 01/28/25 09:15 01/29/25 08:40 Mineral Oil/White Petrolatum Ointment EACH EYE 1 applic Q12HR TATYANA Administration Ondansetron HCl 4 mg 01/28/25 01:51 Ondansetron Inj 4 Mg/2 Ml Vial IV PUSH Q4H PRN Nausea Pantoprazole Sodium 40 mg 01/28/25 09:00 Pantoprazole Sodium Iv 40 Mg Vial IV PUSH QAM TATYANA Sodium Chloride 10 ml 01/28/25 14:00 01/29/25 13:37 Central Line Flush IV PUSH 10 ml Q8HR TATYANA Administration Sodium Chloride 20 ml 01/28/25 06:37 Central Line Flush IV PUSH PRN PRN after blood draws Radiology Results: ITS Impressions Abdomen/Pelvis CTA 01/28/25 00:08 IMPRESSION: Findings within the liver for which malignancy is suspected. Additional findings within the rectum for which acute hemorrhage is suspected (likely secondary to anorectal varices). No findings to suggest upper GI bleeding. 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 Incidental notation is made of cholelithiasis. Head CT 01/28/25 11:51 Impression: No significant abnormality seen. Abdomen X-Ray 01/28/25 13:57 IMPRESSION: 1. Nasogastric tube in stomach. Chest X-Ray 01/29/25 05:48 Impression: Mild bibasilar pulmonary edema/atelectasis with small pleural effusions, left greater than right. Support tubes, as above. Labs Labs: Laboratory Results - last 24 hr 01/27/25 01/28/25 01/28/25 21:44 07:18 14:40 WBC 18.6 H RBC 2.45 L Hgb 8.4 L Hct 25.1 L MCV 102.4 H MCH 34.3 H MCHC 33.5 RDW 19.8 H Plt Count 176 MPV 9.8 Immature Gran % (Auto) Neut % (Auto) Lymph % (Auto) [place] % (Auto) Eos % (Auto) Baso % (Auto) Lymph # (Auto) [place] # (Auto) Eos # (Auto) Baso # (Auto) Abs Immat Gran (auto) Absolute Neuts (auto) Absolute Nucleated RBC Nucleated RBC % % Immature Plt Fraction PT INR APTT Puncture Site ABG pH ABG pCO2 ABG pO2 ABG PO2/FiO2 Ratio ABG HCO3 ABG O2 Saturation ABG O2 Content ABG Base Excess A-a Gradient Oxyhemoglobin Carboxyhemoglobin Methemoglobin Reduced Hemoglobin Total Hemoglobin O2 Delivery Device O2 Liters/Min Minute Volume Vent Rate Vent Mode FiO2 Tidal Volume PEEP Peak Inspir Pressure Pressure Support Sodium 135 L Potassium 5.2 H Chloride 106 Carbon Dioxide 23 Anion Gap 6 BUN 60 H Creatinine 1.37 H Estim Creat Clear Calc 61 Estimated GFR 39 L Glucose 191 H Lactic Acid Calcium 9.0 Phosphorus Magnesium Total Bilirubin 2.0 H AST 234 H ALT 83 H Alkaline Phosphatase 89 Ammonia C-Reactive Protein Total Protein 5.8 L Albumin 2.7 L Tumor Marker AFP [address].0 H Blood Type A Positive Antibody Screen Negative Crossmatch See Detail 01/28/25 01/28/25 01/29/25 14:42 21:13 03:43 WBC 14.1 H 10.1 H RBC 2.08 L 2.15 L Hgb 7.2 L 7.3 L Hct 21.5 L 21.7 L MCV 103.4 H 100.9 H MCH 34.6 H 34.0 MCHC 33.5 33.6 RDW 19.8 H 19.2 H Plt Count 129 L 106 L MPV 9.5 9.8 Immature Gran % (Auto) 0.6 H Neut % (Auto) 63.7 Lymph % (Auto) 25.3 [place] % (Auto) 9.5 H Eos % (Auto) 0.6 Baso % (Auto) 0.3 Lymph # (Auto) 2.57 [place] # (Auto) 1.0 H Eos # (Auto) 0.1 Baso # (Auto) 0.0 Abs Immat Gran (auto) 0.06 H Absolute Neuts (auto) 6.5 Absolute Nucleated RBC 0.050 H Nucleated RBC % 0.5 H % Immature Plt Fraction 2.4 PT 20.3 H INR 1.8 APTT 32.1 Puncture Site ABG pH ABG pCO2 ABG pO2 ABG PO2/FiO2 Ratio ABG HCO3 ABG O2 Saturation ABG O2 Content ABG Base Excess A-a Gradient Oxyhemoglobin Carboxyhemoglobin Methemoglobin Reduced Hemoglobin Total Hemoglobin O2 Delivery Device O2 Liters/Min Minute Volume Vent Rate Vent Mode FiO2 Tidal Volume PEEP Peak Inspir Pressure Pressure Support Sodium 139 Potassium 4.3 Chloride 107 Carbon Dioxide 26 Anion Gap 6 BUN 65 H Creatinine 1.41 H Estim Creat Clear Calc 59 Estimated GFR 38 L Glucose 123 H Lactic Acid 2.7 H 1.5 Calcium 9.5 Phosphorus 3.3 Magnesium 1.9 Total Bilirubin 1.9 H AST 227 H ALT 94 H Alkaline Phosphatase 64 Ammonia 54 H C-Reactive Protein 4.0 H Total Protein 5.8 L Albumin 3.1 L Tumor Marker AFP Blood Type Antibody Screen Crossmatch 01/29/25 01/29/25 01/29/25 04:29 08:28 13:03 WBC 9.4 RBC 2.20 L Hgb 7.5 L Hct 22.2 L MCV 100.9 H MCH 34.1 H MCHC 33.8 RDW 19.7 H Plt Count 108 L MPV 10.3 Immature Gran % (Auto) Neut % (Auto) Lymph % (Auto) [place] % (Auto) Eos % (Auto) Baso % (Auto) Lymph # (Auto) [place] # (Auto) Eos # (Auto) Baso # (Auto) Abs Immat Gran (auto) Absolute Neuts (auto) Absolute Nucleated RBC Nucleated RBC % % Immature Plt Fraction 2.9 PT INR APTT Puncture Site Artline ABG pH 7.505 H* ABG pCO2 30.7 L ABG pO2 76.6 L ABG PO2/FiO2 Ratio 1.91 ABG HCO3 23.7 ABG O2 Saturation 96.5 ABG O2 Content 10.7 L ABG Base Excess 0.8 A-a Gradient 173.3 Oxyhemoglobin 94.8 Carboxyhemoglobin 0.8 Methemoglobin 0.0 Reduced Hemoglobin 4.4 Total Hemoglobin 7.9 L O2 Delivery Device Ventilator O2 Liters/Min Not Reportable Minute Volume Not Reportable Vent Rate 22 Vent Mode Cmv FiO2 40 Tidal Volume 400 PEEP 5 Peak Inspir Pressure Not Reportable Pressure Support Not Reportable Sodium 136 L Potassium 4.2 Chloride 104 Carbon Dioxide 28 Anion Gap 4 BUN 65 H Creatinine 1.31 H Estim Creat Clear Calc 65 Estimated GFR 41 L Glucose 104 Lactic Acid Calcium 9.4 Phosphorus Magnesium Total Bilirubin AST ALT Alkaline Phosphatase Ammonia C-Reactive Protein Total Protein Albumin Tumor Marker AFP Blood Type Antibody Screen Crossmatch 01/29/25 14:21 WBC 9.6 RBC 2.43 L Hgb 8.3 L Hct 24.0 L MCV 98.8 MCH 34.2 H MCHC 34.6 RDW 19.6 H Plt Count 103 L MPV 10.6 H Immature Gran % (Auto) Neut % (Auto) Lymph % (Auto) [place] % (Auto) Eos % (Auto) Baso % (Auto) Lymph # (Auto) [place] # (Auto) Eos # (Auto) Baso # (Auto) Abs Immat Gran (auto) Absolute Neuts (auto) Absolute Nucleated RBC Nucleated RBC % % Immature Plt Fraction PT INR APTT Puncture Site ABG pH ABG pCO2 ABG pO2 ABG PO2/FiO2 Ratio ABG HCO3 ABG O2 Saturation ABG O2 Content ABG Base Excess A-a Gradient Oxyhemoglobin Carboxyhemoglobin Methemoglobin Reduced Hemoglobin Total Hemoglobin O2 Delivery Device O2 Liters/Min Minute Volume Vent Rate Vent Mode FiO2 Tidal Volume PEEP Peak Inspir Pressure Pressure Support Sodium Potassium Chloride Carbon Dioxide Anion Gap BUN Creatinine Estim Creat Clear Calc Estimated GFR Glucose Lactic Acid Calcium Phosphorus Magnesium Total Bilirubin AST ALT Alkaline Phosphatase Ammonia C-Reactive Protein Total Protein Albumin Tumor Marker AFP Blood Type Antibody Screen Crossmatch Quality VTE Prophylaxis VTE prophylaxis: mechanical ordered
[2025-01-29 21:39] LABS: Hematocrit 24.6 % (37.0-47.0); Hemoglobin 8.3 g/dL (12.0-15.0); Immature Platelet Fraction Pct 3.6 % (0.9-11.2); Mean Corpuscular HGB Conc 33.7 g/dl (32-36); Mean Corpuscular Hemoglobin 33.5 pg (26-34); Mean Corpuscular Volume 99.2 fl (80-100); Platelet Count Result 106 k/mm3 (150-375); Red Blood Count 2.48 M/mm3 (4.2-5.4); White Blood Count 9.6 K/mm3 (4.5-10.0)
[2025-01-30] VITALS (53 sets, daily range): BP systolic 75–139; BP diastolic 40–92; PULSE 58–106; RESP 15–23; TEMP 36.4–36.7; O2SAT 92–100
[2025-01-30] MEDS: FENTANYL 2,500MCG/NS250ML(*CRX 2,500 MCG/250 ML BAG 7.5 MCG IV CONT (00:32)
[2025-01-30] MEDS: OCTREOTIDE ACETATE 500 MCG in SODIUM CHLORIDE 0.9% IV 99 ML 10 MCG IV CONT ×3 (00:32→20:33)
[2025-01-30 04:58] LABS: Hematocrit 25.8 % (37.0-47.0); Hemoglobin 8.6 g/dL (12.0-15.0); Immature Granulocyte Percent A 1.1 % (0-0.5); Lymphocytes Absolute Auto 1.58 K/mm3 (0.9-3.2); Mean Corpuscular HGB Conc 33.3 g/dl (32-36); Mean Corpuscular Hemoglobin 33.7 pg (26-34); Mean Corpuscular Volume 101.2 fl (80-100); Nucleated Red Blood Cells Absolute Auto 0.110 K/mm3 (0.0-0.012); Nucleated Red Blood Cells Perc 1.1 % (0.0-0.2); Platelet Count Result 101 k/mm3 (150-375); Red Blood Count 2.55 M/mm3 (4.2-5.4); White Blood Count 9.9 K/mm3 (4.5-10.0)
[2025-01-30 05:08] LABS: Alanine Aminotransferase 86 U/L (6-35); Albumin Level 3.0 g/dL (3.5-5.1); Alkaline Phosphatase 82 U/L (38-126); Anion Gap 7 mmol/L (4-12); Aspartate Amino Transferase 242 U/L (14-36); Bilirubin,Total 2.5 mg/dL (0.2-1.3); Blood Urea Nitrogen 64 mg/dL (7-17); CRP 5.5 mg/dL (<1.0); Calcium 9.5 mg/dL (8.4-10.2); Carbon Dioxide 24 mmol/L (22-30); Chloride 108 mmol/L (98-107); Estimated CRCL calculation 66 ml/min; Estimated Glomerular Filt Rate 42; Glucose 121 mg/dL (65-110); Magnesium 1.9 mg/dL (1.6-2.3); Potassium 4.4 mmol/L (3.4-5.0); Sodium 139 mmol/L (137-145); Total Protein 6.1 g/dL (6.3-8.2)
[2025-01-30 05:46] LABS: Alveolar/Arterial O2 Gradient 171.2 mmHg; Fractional Inspired Oxygen 40 %; HCO3 ABG 25.5 mEq/l (22.0-26.0); Oxygen Content ABG 12.7 %vol (16.0-22.0); Oxygen Saturation ABG 94.8 % (95.0-100.0); PCO2 ABG 38.1 mmHg (35.0-45.0); PO2 ABG 70.2 mmHg (80.0-100.0); PO2 FiO2 Ratio Arterial Blood 1.75 %
[2025-01-30 05:48] LABS: Site Drawn ARTLINE
[2025-01-30 05:50] LABS: Arterial Blood Gas Tidal Volume 400 ml; Arterial Blood Gas Ventilator rate 18 /MIN
[2025-01-30 06:06] LABS: INR 1.5; Prothrombin Time 17.7 Seconds (11.1-14.7)
[2025-01-30] MEDS: CENTRAL LINE FLUSH 10 ML IV PUSH ×3 (06:58→22:20)
--- NOTE | 2025-01-30 08:20 | WPDINTPN ---
Progress Note: A&P Assessment and Plan (1) Hemorrhagic shock: Code(s): R57.8 - Other shock Status: Acute Assessment and Plan: Pt presented with rectal bleed, CT showed esophageal and rectal varices. -Transfused 2 units unmatched PRBC in the ER -hemoglobin this morning is 9.3, platelets 186 -01/28: INR 1.6, will give vitamin K -01/28: Transfused 1 unit of FFP and 1 unit of packed RBC -patient adequately fluid-resuscitated -OFF Levophed and vasopressor, maintain MAP > 65 mmHg or SBP > 100 mmHg for adequate end organ perfusion -01/29: Hb 7.3, INR 1.8 this morning. Transfused 1 unit of FFP and 1 unit of packed RBC, will also repeat vitamin K IVPB -01/30: Hemoglobin remained stable, decreased NG output. Discussed with GI, will continue octreotide for another 24 hours, DC Protonix infusion. 01/28: CTA scan of the abdomen and pelvis: Findings within the liver for which malignancy is suspected. Additional findings within the rectum for which acute hemorrhage is suspected (likely secondary to anorectal varices). No findings to suggest upper GI bleeding. 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 Incidental notation is made of cholelithiasis. (2) Esophageal varices: Qualifiers: Esophageal varices bleeding: with bleeding Esophageal varices type: unspecified type Qualified Code(s): I85.01 - Esophageal varices with bleeding Code(s): I85.00 - Esophageal varices without bleeding Status: Acute Assessment and Plan: Esophageal varices as seen on CTA abdomen and pelvis. -appreciate GI evaluation -01/28: EGD: Showed actively bleeding gastric varix at the gastric cardia, a band ligation device was used to place 1 band, moderate gastritis was seen in the stomach. The gastric has a moderate portal hypertensive change. Large amount of blood was seen in the distal esophagus and the stomach the bowel and the 2nd portion of duodenum was normal with no ulcers or masses -NG tube with bloody drainage, has slowed down, drainage in the FMS has also slowed down (3) Rectal varices: Code(s): K64.9 - Unspecified hemorrhoids Status: Acute Assessment and Plan: Likely related to alcoholic cirrhosis, (4) Alcoholic cirrhosis of liver with ascites: Code(s): K70.31 - Alcoholic cirrhosis of liver with ascites Status: Acute Assessment and Plan: History of alcoholic cirrhosis -LFTs and bilirubin elevated but stable -could be related to shock liver, cirrhosis, bleeding -continue ceftriaxone (01/28) for SBP prophylaxis -continue to monitor LFTs and bilirubin -INR elevated, will give addition vitamin K -continue to monitor (5) Airway compromise: Code(s): J98.8 - Other specified respiratory disorders Status: Acute Assessment and Plan: Patient encephalopathic with elevated ammonia level, not protecting her airway, also intubated for aspiration prevention and for EGD -01/28: Intubated patient for airway protection due to encephalopathy -currently on CMV mode of ventilation, peep of 5 and 40% FiO2 -chest x-ray and ABGs reviewed, maintain O2 sats > 92% -will start weaning sedation, once patient is more awake will place her on SBT and evaluate for extubation -sedated with fentanyl and Versed infusion, maintain RASS of 0 to -2, daily SAT and SBT (6) Acute kidney injury: Code(s): N17.9 - Acute kidney failure, unspecified Status: Acute Assessment and Plan: Acute kidney injury, likely related to hemorrhagic shock -low urine output, creatinine and BUN improving -off pressors, blood pressures remained stable, will allow higher MAP, for adequate end organ perfusion -continue to monitor urine output, renal function electrolytes (7) Encephalopathy: Code(s): G93.40 - Encephalopathy, unspecified Status: Acute Assessment and Plan: Likely related to hyperammonemia -continue lactulose -continue to monitor ammonia level (8) Abnormal CT of liver: Code(s): R93.2 - Abnormal findings on diagnostic imaging of liver and biliary tract Status: Acute Assessment and Plan: CT abdomen and pelvis as above: Suspicious for malignancy -AFP significantly elevated to 83,546 (0.0-9.2) -GI is following the patient: Recommended may need MRI liver protocol when more stable and extubated Plan DVT prophylaxis: SCDs, no chemoprophylaxis due to hemorrhagic shock and GI bleed Stress ulcer prophylaxis: Protonix daily Nutrition: NPO Code Status: Full code Critical Care Time Spent: 33 minutes Due to a high probability of clinically significant, life threatening deterioration, the patient required my highest level of preparedness to intervene emergently and I personally spent this critical care time directly and personally managing the patient. This critical care time included obtaining a history; examining the patient; pulse oximetry; ordering and review of studies; arranging urgent treatment with development of a management plan; evaluation of patient's response to treatment; frequent reassessment; and discussions with other providers. It was exclusive of separately billable procedures and treating other patients and teaching time. Please see Assessment and Plan section and the rest of the note for further information on patient assessment and treatment This dictation may have been done utilizing a voice recognition system. Attempts have been made to correct errors. However, there may be uncorrected grammatical, spelling, and recognitions errors present. Subjective Date/time seen: 01/30/25 08:20 Interval history: Reason for consult: GI bleed, Esophageal and rectal varices, shock, altered mental status, anisocoria, unable to protect her airway, intubated and on mechanical ventilator, hyperkalemia, acute renal failure, elevated LFTs 01/28: EGD: Showed actively bleeding gastric varix at the gastric cardia, a band ligation device was used to place 1 band, moderate gastritis was seen in the stomach. The gastric has a moderate portal hypertensive change. Large amount of blood was seen in the distal esophagus and the stomach the bowel and the 2nd portion of duodenum was normal with no ulcers or masses 01/30/2025: Patient seen and examined the ICU. Remains intubated on CMV mode of ventilation, peep of 5, 40% FiO2. Sedated with fentanyl and Versed infusion. Urine output has been low, BUN creatinine are improving. Patient is OFF Levophed and vasopressin. Hemoglobin has been stable and improving. This morning her INR is 1.5. LFTs remain elevated. Patient does not open her eyes or follow simple, withdraws to pain in all extremities Review of Systems Review of Systems: ROS unobtainable: Yes unobtainable due to endotracheal tube, unobtainable due to medical condition and unobtainable due to mental status Exam Narrative: General: Patient is intubated and sedated in no acute distress HEENT:? Pupils unequal, R>L, sclera is icteric Neck:? supple Respiratory:? Coarse breath sounds bilaterally, decreased at bases, diffuse wheezing Cardiac:? S1 S2 normal, regular rate and rhythm Abdomen:? soft, nontender, non distended, morbidly obese, hypoactive bowel sounds Extremities:?b/l edema of lower extremities, palpable pedal pulses Neuro:? Patient is intubated, sedated, does not open eyes or follow simple commands. For withdraws to pain stimulus Skin:? Feet are warm today Psych:? unable to assess Objective Data Vital Signs Vital Signs: Vital Signs - 24 hr 01/29/25 09:13 01/29/25 09:23 01/29/25 09:38 Temperature 96.7 F L 96.7 F L 96.9 F L Pulse Rate 70 Respiratory Rate 18 Blood Pressure 131/69 Pulse Oximetry 98 Oxygen Delivery Fraction of Inspired Oxygen 01/29/25 09:53 01/29/25 10:00 01/29/25 10:00 Temperature 96.8 F L Pulse Rate 67 67 Respiratory Rate 18 Blood Pressure 123/66 Pulse Oximetry Oxygen Delivery Fraction of Inspired Oxygen 01/29/25 10:00 01/29/25 10:00 01/29/25 10:00 Temperature 96.8 F L Pulse Rate 67 67 67 Respiratory Rate 18 18 Blood Pressure 123/66 123/66 Pulse Oximetry 98 Oxygen Delivery Fraction of Inspired Oxygen 01/29/25 10:08 01/29/25 10:13 01/29/25 10:23 Temperature 96.8 F L 96.9 F L 96.9 F L Pulse Rate 67 Respiratory Rate 18 Blood Pressure 123/65 Pulse Oximetry 98 Oxygen Delivery Fraction of Inspired Oxygen 01/29/25 10:53 01/29/25 11:12 01/29/25 11:23 Temperature 97.0 F L 97.1 F L Pulse Rate 66 Respiratory Rate Blood Pressure Pulse Oximetry 97 Oxygen Delivery Mechanical Ventilation Fraction of Inspired Oxygen 40 01/29/25 11:35 01/29/25 11:59 01/29/25 12:00 Temperature 97.2 F L 97.4 F L Pulse Rate 67 66 Respiratory Rate 18 Blood Pressure 118/63 Pulse Oximetry 98 Oxygen Delivery Fraction of Inspired Oxygen 01/29/25 12:00 01/29/25 12:00 01/29/25 12:00 Temperature Pulse Rate 67 67 Respiratory Rate 18 Blood Pressure 118/63 Pulse Oximetry 97 Oxygen Delivery Mechanical Ventilation Fraction of Inspired Oxygen 40 40 01/29/25 12:00 01/29/25 12:00 01/29/25 12:00 Temperature Pulse Rate 67 67 67 Respiratory Rate 18 18 Blood Pressure 118/63 Pulse Oximetry Oxygen Delivery Fraction of Inspired Oxygen 01/29/25 14:00 01/29/25 14:00 01/29/25 14:00 Temperature 97.6 F Pulse Rate 67 68 68 Respiratory Rate 18 Blood Pressure 125/65 Pulse Oximetry 97 96 Oxygen Delivery Mechanical Ventilation Fraction of Inspired Oxygen 40 01/29/25 14:00 01/29/25 14:00 01/29/25 14:00 Temperature Pulse Rate 68 68 68 Respiratory Rate 18 Blood Pressure 123/65 123/65 Pulse Oximetry Oxygen Delivery Fraction of Inspired Oxygen 01/29/25 14:00 01/29/25 16:00 01/29/25 16:00 Temperature 97.9 F Pulse Rate 68 67 67 Respiratory Rate 18 18 18 Blood Pressure 125/65 Pulse Oximetry 96 96 Oxygen Delivery Mechanical Ventilation Fraction of Inspired Oxygen 40 01/29/25 16:00 01/29/25 16:00 01/29/25 16:00 Temperature Pulse Rate 67 67 Respiratory Rate 18 Blood Pressure 125/65 Pulse Oximetry Oxygen Delivery Fraction of Inspired Oxygen 40 01/29/25 16:00 01/29/25 16:00 01/29/25 16:00 Temperature Pulse Rate 67 67 67 Respiratory Rate 18 Blood Pressure 126/65 Pulse Oximetry Oxygen Delivery Fraction of Inspired Oxygen 01/29/25 17:15 01/29/25 18:00 01/29/25 18:00 Temperature Pulse Rate 75 72 72 Respiratory Rate 18 18 Blood Pressure Pulse Oximetry 94 Oxygen Delivery Mechanical Ventilation Fraction of Inspired Oxygen 40 01/29/25 18:00 01/29/25 18:00 01/29/25 20:00 Temperature 97.8 F 97.9 F Pulse Rate 72 72 68 Respiratory Rate 18 18 Blood Pressure 107/76 113/50 L Pulse Oximetry 95 95 Oxygen Delivery Fraction of Inspired Oxygen 01/29/25 20:00 01/29/25 20:00 01/29/25 20:00 Temperature Pulse Rate 68 68 Respiratory Rate 18 18 Blood Pressure Pulse Oximetry 95 Oxygen Delivery Mechanical Ventilation Fraction of Inspired Oxygen 40 40 01/29/25 20:00 01/29/25 20:00 01/29/25 20:14 Temperature Pulse Rate 68 67 67 Respiratory Rate 18 Blood Pressure Pulse Oximetry 95 Oxygen Delivery Mechanical Ventilation Fraction of Inspired Oxygen 40 01/29/25 22:00 01/29/25 22:00 01/29/25 22:00 Temperature 98.0 F Pulse Rate 67 67 67 Respiratory Rate 18 18 Blood Pressure 115/51 L Pulse Oximetry 95 Oxygen Delivery Fraction of Inspired Oxygen 01/29/25 22:00 01/29/25 23:00 01/29/25 23:40 Temperature Pulse Rate 67 66 66 Respiratory Rate 18 18 Blood Pressure Pulse Oximetry 96 Oxygen Delivery Mechanical Ventilation Fraction of Inspired Oxygen 40 01/30/25 00:00 01/30/25 00:00 01/30/25 00:00 Temperature 98.0 F Pulse Rate 70 70 70 Respiratory Rate 18 18 18 Blood Pressure 117/58 L Pulse Oximetry 96 Oxygen Delivery Fraction of Inspired Oxygen 01/30/25 00:00 01/30/25 00:00 01/30/25 00:00 Temperature Pulse Rate 70 69 Respiratory Rate 18 Blood Pressure Pulse Oximetry 96 Oxygen Delivery Mechanical Ventilation Fraction of Inspired Oxygen 40 40 01/30/25 00:32 01/30/25 00:32 01/30/25 01:00 Temperature Pulse Rate 68 68 66 Respiratory Rate 18 18 18 Blood Pressure Pulse Oximetry Oxygen Delivery Fraction of Inspired Oxygen 01/30/25 02:00 01/30/25 02:00 01/30/25 02:00 Temperature 98.0 F Pulse Rate 64 64 66 Respiratory Rate 18 18 Blood Pressure 105/47 L Pulse Oximetry 95 Oxygen Delivery Fraction of Inspired Oxygen 01/30/25 02:00 01/30/25 02:30 01/30/25 02:57 Temperature Pulse Rate 66 65 64 Respiratory Rate 18 18 Blood Pressure Pulse Oximetry 100 Oxygen Delivery Mechanical Ventilation Fraction of Inspired Oxygen 40 01/30/25 04:00 01/30/25 04:00 01/30/25 04:00 Temperature 97.9 F Pulse Rate 80 66 Respiratory Rate 18 18 Blood Pressure 114/58 L Pulse Oximetry 94 96 Oxygen Delivery Mechanical Ventilation Fraction of Inspired Oxygen 40 40 01/30/25 04:00 01/30/25 04:00 01/30/25 04:00 Temperature Pulse Rate 94 70 70 Respiratory Rate 18 18 Blood Pressure Pulse Oximetry Oxygen Delivery Fraction of Inspired Oxygen 01/30/25 05:53 01/30/25 06:00 01/30/25 06:00 Temperature 97.7 F Pulse Rate 65 65 65 Respiratory Rate 18 Blood Pressure 113/56 L Pulse Oximetry 96 100 Oxygen Delivery Mechanical Ventilation Fraction of Inspired Oxygen 40 01/30/25 08:00 Temperature 97.9 F Pulse Rate 62 Respiratory Rate 18 Blood Pressure 105/51 L Pulse Oximetry 96 Oxygen Delivery Fraction of Inspired Oxygen Intake/Output Intake/Output: Intake & Output 01/27/25 01/28/25 01/29/25 01/30/25 23:59 23:59 23:59 23:59 Intake Total 3430.1 3469.6 246.6 Output Total 50 1025 925 650 Balance -50 2405.1 2544.6 -403.4 Meds/Results Medications: Active Medications Generic Name Dose Route Start Last Admin Trade Name Freq PRN Reason Stop Dose Admin Octreotide Acetate 500 mcg/ 100 mls @ 10 mls/hr 01/27/25 22:00 01/30/25 00:32 Sodium Chloride IV CONT 50 mcg/hr .Q10H TATYANA 10 mls/hr Administration 50 MCG/HR Ceftriaxone Sodium 2 gm/ 50 mls @ 100 mls/hr 01/28/25 09:00 01/29/25 09:03 Sodium Chloride IVPB Infused Q24H TATYANA Infusion Fentanyl Citrate 2,500 mcg in 250 mls @ 7.5 mls/hr 01/28/25 09:10 01/30/25 04:00 Fentanyl 2,500 Mcg/Ns 250 Ml IV CONT 75 mcg/hr .[id number] TATYANA 7.5 mls/hr Titration Protocol 75 MCG/HR Midazolam HCl 100 mg in 100 mls @ 3 mls/hr 01/28/25 09:10 01/30/25 04:00 Versed 100 Mg/Ns 100 Ml IV CONT 3 mg/hr .[id number] TATYANA 3 mls/hr Titration Protocol 3 MG/HR Pantoprazole Sodium 80 mg/ 500 mls @ 50 mls/hr 01/28/25 12:00 01/29/25 21:29 Sodium Chloride IV CONT 50 mls/hr .Q10H TATYANA Administration Phytonadione 10 mg/ Dextrose 51 mls @ 100 mls/hr 01/29/25 09:00 01/29/25 09:10 IVPB 01/30/25 09:31 Infused DAILY TATYANA Infusion Lactulose 20 gm 01/29/25 09:00 01/29/25 17:07 Lactulose 20 Gm/30 Ml Udc PO 01/31/25 08:59 20 gm TID TATYANA Administration Multi-Ingred Cream/Lotion/Oil/Oint 1 applic 01/28/25 09:15 01/29/25 20:35 Mineral Oil/White Petrolatum Ointment EACH EYE 1 applic Q12HR TATYANA Administration Ondansetron HCl 4 mg 01/28/25 01:51 Ondansetron Inj 4 Mg/2 Ml Vial IV PUSH Q4H PRN Nausea Pantoprazole Sodium 40 mg 01/28/25 09:00 Pantoprazole Sodium Iv 40 Mg Vial IV PUSH QAM TATYANA Sodium Chloride 10 ml 01/28/25 14:00 01/30/25 06:58 Central Line Flush IV PUSH 10 ml Q8HR TATYANA Administration Sodium Chloride 20 ml 01/28/25 06:37 Central Line Flush IV PUSH PRN PRN after blood draws Radiology Results: ITS Impressions Abdomen/Pelvis CTA 01/28/25 00:08 IMPRESSION: Findings within the liver for which malignancy is suspected. Additional findings within the rectum for which acute hemorrhage is suspected (likely secondary to anorectal varices). No findings to suggest upper GI bleeding. 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 Incidental notation is made of cholelithiasis. Head CT 01/28/25 11:51 Impression: No significant abnormality seen. Abdomen X-Ray 01/28/25 13:57 IMPRESSION: 1. Nasogastric tube in stomach. Chest X-Ray 01/30/25 06:46 Impression: 1: Focal consolidation left lower lobe may represent atelectasis and/or pneumonia. 2: Cardiomegaly with mild interstitial edema. 3: Small left pleural effusion. Labs Labs: Laboratory Results - last 24 hr 01/27/25 01/28/25 01/29/25 21:44 07:18 08:28 WBC 9.4 RBC 2.20 L Hgb 7.5 L Hct 22.2 L MCV 100.9 H MCH 34.1 H MCHC 33.8 RDW 19.7 H Plt Count 108 L MPV 10.3 Immature Gran % (Auto) Neut % (Auto) Lymph % (Auto) [place] % (Auto) Eos % (Auto) Baso % (Auto) Lymph # (Auto) [place] # (Auto) Eos # (Auto) Baso # (Auto) Abs Immat Gran (auto) Absolute Neuts (auto) Absolute Nucleated RBC Nucleated RBC % % Immature Plt Fraction 2.9 PT INR Puncture Site ABG pH ABG pCO2 ABG pO2 ABG PO2/FiO2 Ratio ABG HCO3 ABG O2 Saturation ABG O2 Content ABG Base Excess A-a Gradient Oxyhemoglobin Total Hemoglobin O2 Delivery Device O2 Liters/Min Minute Volume Vent Rate Vent Mode FiO2 Tidal Volume PEEP Peak Inspir Pressure Pressure Support Sodium Potassium Chloride Carbon Dioxide Anion Gap BUN Creatinine Estim Creat Clear Calc Estimated GFR Glucose POC Capillary Glucose Lactic Acid Calcium Phosphorus Magnesium Total Bilirubin AST ALT Alkaline Phosphatase C-Reactive Protein Total Protein Albumin [place] [address].0 H Crossmatch See Detail 01/29/25 01/29/25 01/29/25 13:03 14:21 21:33 WBC 9.6 9.6 RBC 2.43 L 2.48 L Hgb 8.3 L 8.3 L Hct 24.0 L 24.6 L MCV 98.8 99.2 MCH 34.2 H 33.5 MCHC 34.6 33.7 RDW 19.6 H 20.1 H Plt Count 103 L 106 L MPV 10.6 H 10.1 Immature Gran % (Auto) Neut % (Auto) Lymph % (Auto) [place] % (Auto) Eos % (Auto) Baso % (Auto) Lymph # (Auto) [place] # (Auto) Eos # (Auto) Baso # (Auto) Abs Immat Gran (auto) Absolute Neuts (auto) Absolute Nucleated RBC Nucleated RBC % % Immature Plt Fraction 3.6 PT INR Puncture Site ABG pH ABG pCO2 ABG pO2 ABG PO2/FiO2 Ratio ABG HCO3 ABG O2 Saturation ABG O2 Content ABG Base Excess A-a Gradient Oxyhemoglobin Total Hemoglobin O2 Delivery Device O2 Liters/Min Minute Volume Vent Rate Vent Mode FiO2 Tidal Volume PEEP Peak Inspir Pressure Pressure Support Sodium 136 L Potassium 4.2 Chloride 104 Carbon Dioxide 28 Anion Gap 4 BUN 65 H Creatinine 1.31 H Estim Creat Clear Calc 65 Estimated GFR 41 L Glucose 104 POC Capillary Glucose Lactic Acid Calcium 9.4 Phosphorus Magnesium Total Bilirubin AST ALT Alkaline Phosphatase C-Reactive Protein Total Protein Albumin Tumor Marker AFP Crossmatch 01/30/25 01/30/25 01/30/25 00:11 04:47 05:36 WBC 9.9 RBC 2.55 L Hgb 8.6 L Hct 25.8 L MCV 101.2 H MCH 33.7 MCHC 33.3 RDW 20.3 H Plt Count 101 L MPV 10.5 H Immature Gran % (Auto) 1.1 H Neut % (Auto) 72.1 Lymph % (Auto) 16.0 L [place] % (Auto) 9.8 H Eos % (Auto) 0.8 Baso % (Auto) 0.2 Lymph # (Auto) 1.58 [place] # (Auto) 1.0 H Eos # (Auto) 0.1 Baso # (Auto) 0.0 Abs Immat Gran (auto) 0.11 H Absolute Neuts (auto) 7.1 H Absolute Nucleated RBC 0.110 H Nucleated RBC % 1.1 H % Immature Plt Fraction PT 17.7 H INR 1.5 Puncture Site Artline ABG pH 7.443 ABG pCO2 38.1 ABG pO2 70.2 L ABG PO2/FiO2 Ratio 1.75 ABG HCO3 25.5 ABG O2 Saturation 94.8 L ABG O2 Content 12.7 L ABG Base Excess 1.4 A-a Gradient 171.2 Oxyhemoglobin 91.5 Total Hemoglobin 9.8 L O2 Delivery Device Ventilator O2 Liters/Min Not Reportable Minute Volume Not Reportable Vent Rate 18 Vent Mode Cmv FiO2 40 Tidal Volume 400 PEEP 8 Peak Inspir Pressure Not Reportable Pressure Support Not Reportable Sodium 139 Potassium 4.4 Chloride 108 H Carbon Dioxide 24 Anion Gap 7 BUN 64 H Creatinine 1.29 H Estim Creat Clear Calc 66 Estimated GFR 42 L Glucose 121 H POC Capillary Glucose 107 H Lactic Acid 1.3 Calcium 9.5 Phosphorus 3.3 Magnesium 1.9 Total Bilirubin 2.5 H AST 242 H ALT 86 H Alkaline Phosphatase 82 C-Reactive Protein 5.5 H Total Protein 6.1 L Albumin 3.0 L Tumor Marker AFP Crossmatch Quality VTE Prophylaxis VTE prophylaxis: mechanical ordered
[2025-01-30] MEDS: PHYTONADIONE ADULT INJ 10 MG in DEXTROSE 5% IN WATER 50 ML 100 MG IVPB (08:37)
[2025-01-30] MEDS: PANTOPRAZOLE SODIUM IV 80 MG in SODIUM CHLORIDE 0.9% IV 500 ML 50 MG IV CONT (08:37)
[2025-01-30] MEDS: cefTRIAXone 2 GM in SODIUM CHLORIDE 0.9% IV 50 ML 100 ML IVPB (08:38)
[2025-01-30] MEDS: MINERAL OIL/WHITE PETROLATUM OINTMENT 1 APPLIC EACH EYE ×2 (08:38→20:34)
[2025-01-30] MEDS: LACTULOSE 20 GM/30 ML UDC PO (08:38)
[2025-01-30] MEDS: ALBUTEROL SULFATE NEB 2.5 MG/3 ML INH 10 MG INHALATION (08:49)
[2025-01-30] MEDS: MIDAZOLAM 100MG/NS 100ML(*CRX) 100 MG/100 ML BAG IV CONT (08:50)
[2025-01-30] MEDS: ALBUMIN HUMAN 25% 25 GM/100 ML 100 ML IVPB (09:15)
[2025-01-30 09:30] LABS: Ammonia 53 umol/L (9-30)
--- NOTE | 2025-01-30 10:27 | PCNFU ---
Nutrition Follow-Up Complete: Suboptimal Energy Intake as related to mechanical intubation as evidenced by NPO. Goal:Meet estimated nutritional needs Pt not meeting goal, continue with same goal Pt current nutrition is NPO, on vent. Nutrition recommendation: initiate nutrition support if pt remains on vent Last recorded weight is 165 kg. Bowel Motility: +BM 01/30 Labs Reviewed: Hgb:8.6, HCT:25.8, BUN:34, Cr:1.3, Glu:121 Meds Noted: fentanyl, versed for sedation, lactulose, lasix, protonix Skin: yeat Additional Notes: Pt remains on vent, NPO, no plans for nutrition today. Recommendation in for tube feeding: Vital HP @ goal rate of 65ml/hr to provide 1430kcals, 125g protein (2g/kg IBW), 1195ml free water. [employer] asking to use Vital AF 1.2 instead to lower protein. Equivalent rate would be Vital AF 1.2 @ 55ml/hr to provide 1452kcals, 90g protein (1.4g/kg IBW), 981ml free water. Will monitor weight, labs, skin, diet orders, meds every Sunday and Sunday.
--- NOTE | 2025-01-30 10:35 | PCDIET ---
Tube feeding recommendation: Vital AF 1.2 @ 55ml/hr to provide 1452kcals, 90g protein (1.4g/kg IBW), 981ml free water.
[2025-01-30] MEDS: dexmedeTOMIDine 400 MCG/100 ML 400 MCG/100 ML BAG 8.25 MCG IV CONT (10:40)
[2025-01-30] MEDS: PANTOPRAZOLE SODIUM IV 40 MG VIAL IV PUSH (10:41)
[2025-01-30] MEDS: NOREPINEPHRINE 8 MG/D5W 250 ML 8 MG/250 ML BAG 9.38 MG IV CONT (11:53)
--- NOTE | 2025-01-30 12:02 | PM.IMPN ---
Progress Note: A&P Assessment and Plan (1) Hemorrhagic shock: Code(s): R57.8 - Other shock Status: Acute Assessment and Plan: Pt presented with rectal bleed, CT showed esophageal and rectal varices. S/p EGD with banding /p 2units and receiving a 3 rd unit this morning Monitor H and h CT AP showed finding suspicious of liver ca Continue PPI and octreotide per GI (2) Esophageal varices: Qualifiers: Esophageal varices bleeding: with bleeding Esophageal varices type: unspecified type Qualified Code(s): I85.01 - Esophageal varices with bleeding Code(s): I85.00 - Esophageal varices without bleeding Status: Acute Assessment and Plan: Esophageal varices as seen on CTA abdomen and pelvis. -appreciate GI evaluation S/p EGD with variceal banding in [facility] and esophagus (3) Rectal varices: Code(s): K64.9 - Unspecified hemorrhoids Status: Acute Assessment and Plan: Likely related to alcoholic cirrhosis, (4) Alcoholic cirrhosis of liver with ascites: Code(s): K70.31 - Alcoholic cirrhosis of liver with ascites Status: Acute Assessment and Plan: History of alcoholic cirrhosis -LFTs and bilirubin elevated but stable -could be related to shock liver, cirrhosis, bleeding -continue ceftriaxone (01/28) for SBP prophylaxis -continue to monitor LFTs and bilirubin -INR elevated, will give addition vitamin K -continue to monitor (5) Airway compromise: Code(s): J98.8 - Other specified respiratory disorders Status: Acute Assessment and Plan: Patient encephalopathic with elevated ammonia level, not protecting her airway, also intubated for aspiration prevention and for EGD -01/28: Intubated patient for airway protection due to encephalopathy -currently on CMV mode of ventilation, peep of 5 and 40% FiO2 -chest x-ray and ABGs reviewed, maintain O2 sats > 92% -will start weaning sedation, once patient is more awake will place her on SBT and evaluate for extubation -sedated with fentanyl and Versed infusion, maintain RASS of 0 to -2, daily SAT and SBT (6) Acute kidney injury: Code(s): N17.9 - Acute kidney failure, unspecified Status: Acute Assessment and Plan: Acute kidney injury, likely related to hemorrhagic shock -low urine output, creatinine and BUN improving -off pressors, blood pressures remained stable, will allow higher MAP, for adequate end organ perfusion -continue to monitor urine output, renal function electrolytes (7) Encephalopathy: Code(s): G93.40 - Encephalopathy, unspecified Status: Acute Assessment and Plan: Likely related to hyperammonemia -continue lactulose -continue to monitor ammonia level (8) Abnormal CT of liver: Code(s): R93.2 - Abnormal findings on diagnostic imaging of liver and biliary tract Status: Acute Assessment and Plan: CT abdomen and pelvis as above: Suspicious for malignancy -AFP significantly elevated to 83,546 (0.0-9.2) -GI is following the patient: Recommended may need MRI liver protocol when more stable and extubated Plan DVT prophylaxis: SCDs, no chemoprophylaxis due to hemorrhagic shock and GI bleed Stress ulcer prophylaxis: Protonix daily Nutrition: NPO Code Status: Full code Subjective Date/time seen: 01/30/25 12:02 Interval history: Intubated possible SBT today Review of Systems Review of Systems: Review of systems unobtainable due to patient's confusion All systems reviewed & are unremarkable except as noted in HPI and below ROS unobtainable: Yes unobtainable due to endotracheal tube, unobtainable due to medical condition and unobtainable due to mental status Exam Narrative: General: Patient is intubated and sedated in no acute distress HEENT:? Pupils unequal, R>L, sclera is icteric Neck:? supple Respiratory:? Coarse breath sounds bilaterally, decreased at bases, diffuse wheezing Cardiac:? S1 S2 normal, regular rate and rhythm Abdomen:? soft, nontender, non distended, morbidly obese, hypoactive bowel sounds Extremities:?b/l edema of lower extremities, palpable pedal pulses Neuro:? Patient is intubated, sedated, does not open eyes or follow simple commands. For withdraws to pain stimulus Skin:? Feet are warm today Psych:? unable to assess Const: Other: Morbidly obese, acutely ill-appearing, agitated and restless and difficult to redirect HENMT: Other: Head is normocephalic atraumatic, mucous membranes are tacky, crowded posterior oropharynx, right NG tube present with maroon drainage Eyes: Other: Pupils are equal and reactive, positive conjunctival pallor, mild scleral icterus noted Neck: Other: Large neck circumference, no lymphadenopathy, no JVD Resp: Other: Regular rate, regular rhythm, 2+ bilateral radial pedal pulses Cardio: Other: Sinus tachycardia, 2 no murmur, no JVD GI: Other: Distended, tense, no fluid wave, generalized discomfort on palpation : Other: Simon catheter in place with clear yellow urine Back/Spine/Pelvis: Other: Incontinent of melenic stool rectal tube in place but no stool within the fecal management system Skin: Other: Generalized pallor, non jaundice, chronic skin changes to bilateral lower extremities consistent with peripheral vascular disease and or venous stasis dermatitis Neuro: Other: Patient is alert oriented person it is unclear whether she realized that she is in the hospital or not she states she does not know the month or year and cannot tell me why she is in the hospital, she is moving all extremities equally and localizing to pain Extrem: Other: No cyanosis, no pitting edema, moves all extremities equally Psych: Other: Agitated, restless, difficult to redirect, poor judgment and insight Objective Data Vital Signs Vital Signs: Vital Signs - 24 hr 01/29/25 14:00 01/29/25 14:00 01/29/25 14:00 Temperature 97.6 F Pulse Rate 67 68 68 Respiratory Rate 18 Blood Pressure 125/65 Pulse Oximetry 97 96 Oxygen Delivery Mechanical Ventilation Fraction of Inspired Oxygen 40 01/29/25 14:00 01/29/25 14:00 01/29/25 14:00 Temperature Pulse Rate 68 68 68 Respiratory Rate 18 Blood Pressure 123/65 123/65 Pulse Oximetry Oxygen Delivery Fraction of Inspired Oxygen 01/29/25 14:00 01/29/25 16:00 01/29/25 16:00 Temperature 97.9 F Pulse Rate 68 67 67 Respiratory Rate 18 18 18 Blood Pressure 125/65 Pulse Oximetry 96 96 Oxygen Delivery Mechanical Ventilation Fraction of Inspired Oxygen 40 01/29/25 16:00 01/29/25 16:00 01/29/25 16:00 Temperature Pulse Rate 67 67 Respiratory Rate 18 Blood Pressure 125/65 Pulse Oximetry Oxygen Delivery Fraction of Inspired Oxygen 40 01/29/25 16:00 01/29/25 16:00 01/29/25 16:00 Temperature Pulse Rate 67 67 67 Respiratory Rate 18 Blood Pressure 126/65 Pulse Oximetry Oxygen Delivery Fraction of Inspired Oxygen 01/29/25 17:15 01/29/25 18:00 01/29/25 18:00 Temperature Pulse Rate 75 72 72 Respiratory Rate 18 18 Blood Pressure Pulse Oximetry 94 Oxygen Delivery Mechanical Ventilation Fraction of Inspired Oxygen 40 01/29/25 18:00 01/29/25 18:00 01/29/25 20:00 Temperature 97.8 F 97.9 F Pulse Rate 72 72 68 Respiratory Rate 18 18 Blood Pressure 107/76 113/50 L Pulse Oximetry 95 95 Oxygen Delivery Fraction of Inspired Oxygen 01/29/25 20:00 01/29/25 20:00 01/29/25 20:00 Temperature Pulse Rate 68 68 Respiratory Rate 18 18 Blood Pressure Pulse Oximetry 95 Oxygen Delivery Mechanical Ventilation Fraction of Inspired Oxygen 40 40 01/29/25 20:00 01/29/25 20:00 01/29/25 20:14 Temperature Pulse Rate 68 67 67 Respiratory Rate 18 Blood Pressure Pulse Oximetry 95 Oxygen Delivery Mechanical Ventilation Fraction of Inspired Oxygen 40 01/29/25 22:00 01/29/25 22:00 01/29/25 22:00 Temperature 98.0 F Pulse Rate 67 67 67 Respiratory Rate 18 18 Blood Pressure 115/51 L Pulse Oximetry 95 Oxygen Delivery Fraction of Inspired Oxygen 01/29/25 22:00 01/29/25 23:00 01/29/25 23:40 Temperature Pulse Rate 67 66 66 Respiratory Rate 18 18 Blood Pressure Pulse Oximetry 96 Oxygen Delivery Mechanical Ventilation Fraction of Inspired Oxygen 40 01/30/25 00:00 01/30/25 00:00 01/30/25 00:00 Temperature 98.0 F Pulse Rate 70 70 70 Respiratory Rate 18 18 18 Blood Pressure 117/58 L Pulse Oximetry 96 Oxygen Delivery Fraction of Inspired Oxygen 01/30/25 00:00 01/30/25 00:00 01/30/25 00:00 Temperature Pulse Rate 70 69 Respiratory Rate 18 Blood Pressure Pulse Oximetry 96 Oxygen Delivery Mechanical Ventilation Fraction of Inspired Oxygen 40 40 01/30/25 00:32 01/30/25 00:32 01/30/25 01:00 Temperature Pulse Rate 68 68 66 Respiratory Rate 18 18 18 Blood Pressure Pulse Oximetry Oxygen Delivery Fraction of Inspired Oxygen 01/30/25 02:00 01/30/25 02:00 01/30/25 02:00 Temperature 98.0 F Pulse Rate 64 64 66 Respiratory Rate 18 18 Blood Pressure 105/47 L Pulse Oximetry 95 Oxygen Delivery Fraction of Inspired Oxygen 01/30/25 02:00 01/30/25 02:30 01/30/25 02:57 Temperature Pulse Rate 66 65 64 Respiratory Rate 18 18 Blood Pressure Pulse Oximetry 100 Oxygen Delivery Mechanical Ventilation Fraction of Inspired Oxygen 40 01/30/25 04:00 01/30/25 04:00 01/30/25 04:00 Temperature 97.9 F Pulse Rate 80 66 Respiratory Rate 18 18 Blood Pressure 114/58 L Pulse Oximetry 94 96 Oxygen Delivery Mechanical Ventilation Fraction of Inspired Oxygen 40 40 01/30/25 04:00 01/30/25 04:00 01/30/25 04:00 Temperature Pulse Rate 94 70 70 Respiratory Rate 18 18 Blood Pressure Pulse Oximetry Oxygen Delivery Fraction of Inspired Oxygen 01/30/25 05:53 01/30/25 06:00 01/30/25 06:00 Temperature 97.7 F Pulse Rate 65 65 65 Respiratory Rate 18 Blood Pressure 113/56 L Pulse Oximetry 96 100 Oxygen Delivery Mechanical Ventilation Fraction of Inspired Oxygen 40 01/30/25 08:00 01/30/25 08:00 01/30/25 08:00 Temperature 97.9 F Pulse Rate 62 62 Respiratory Rate 16 18 Blood Pressure 105/51 L Pulse Oximetry 98 96 Oxygen Delivery Mechanical Ventilation Fraction of Inspired Oxygen 40 40 01/30/25 08:00 01/30/25 08:00 01/30/25 08:50 Temperature Pulse Rate 62 62 64 Respiratory Rate 18 18 18 Blood Pressure Pulse Oximetry Oxygen Delivery Fraction of Inspired Oxygen 01/30/25 08:50 01/30/25 08:50 01/30/25 09:10 Temperature Pulse Rate 64 65 72 Respiratory Rate 18 18 Blood Pressure Pulse Oximetry 93 Oxygen Delivery Mechanical Ventilation Fraction of Inspired Oxygen 40 01/30/25 09:28 01/30/25 09:51 01/30/25 09:52 Temperature Pulse Rate 98 87 87 Respiratory Rate 16 16 16 Blood Pressure Pulse Oximetry Oxygen Delivery Fraction of Inspired Oxygen 01/30/25 10:00 01/30/25 10:00 01/30/25 10:15 Temperature Pulse Rate 86 86 83 Respiratory Rate 16 15 16 Blood Pressure Pulse Oximetry Oxygen Delivery Fraction of Inspired Oxygen 01/30/25 10:15 01/30/25 10:40 01/30/25 11:10 Temperature Pulse Rate 83 106 H 77 Respiratory Rate 16 18 17 Blood Pressure Pulse Oximetry Oxygen Delivery Fraction of Inspired Oxygen 01/30/25 11:29 01/30/25 11:53 Temperature Pulse Rate 72 70 Respiratory Rate Blood Pressure 75/40 L Pulse Oximetry 99 Oxygen Delivery Mechanical Ventilation Fraction of Inspired Oxygen 40 Intake/Output Intake/Output: Intake & Output 01/27/25 01/28/25 01/29/25 01/30/25 23:59 23:59 23:59 23:59 Intake Total 3430.1 4819.6 1063.6 Output Total 50 1025 925 650 Balance -50 2405.1 3894.6 413.6 Meds/Results Medications: Active Medications Generic Name Dose Route Start Last Admin Trade Name Freq PRN Reason Stop Dose Admin Albuterol/Ipratropium 3 ml 01/30/25 14:00 Ipratropium 0.5 Mg/Albuterol Sulfate 2.5 Mg Ampul.Neb 3 Ml INHALATION Q6HRT TATYANA Octreotide Acetate 500 mcg/ 100 mls @ 10 mls/hr 01/27/25 22:00 01/30/25 10:41 Sodium Chloride IV CONT 50 mcg/hr .Q10H TATYANA 10 mls/hr Administration 50 MCG/HR Ceftriaxone Sodium 2 gm/ 50 mls @ 100 mls/hr 01/28/25 09:00 01/30/25 09:08 Sodium Chloride IVPB Infused Q24H TATYANA Infusion Fentanyl Citrate 2,500 mcg in 250 mls @ 0 mls/hr 01/28/25 09:10 01/30/25 10:15 Fentanyl 2,500 Mcg/Ns 250 Ml IV CONT 0 mcg/hr .Q0M TATYANA 0 mls/hr Titration Protocol 0 MCG/HR Midazolam HCl 100 mg in 100 mls @ 0 mls/hr 01/28/25 09:10 01/30/25 10:15 Versed 100 Mg/Ns 100 Ml IV CONT 0 mg/hr .Q0M TATYANA 0 mls/hr Titration Protocol 0 MG/HR Dexmedetomidine HCl 400 mcg in 100 mls @ 12.375 mls/hr 01/30/25 10:30 01/30/25 11:10 Precedex 400 Mcg/100 Ml IV CONT 0.3 mcg/kg/hr .Q8H5M TATYANA 12.38 mls/hr Titration Protocol 0.3 MCG/KG/HR Norepinephrine Bitartrate 8 mg in 250 mls @ 9.375 mls/hr 01/30/25 11:50 01/30/25 11:53 Levophed 8 Mg/D5w 250 Ml IV CONT 5 mcg/min .Q24H TATYANA 9.38 mls/hr Administration Protocol 5 MCG/MIN Lactulose 20 gm 01/29/25 09:00 01/30/25 08:38 Lactulose 20 Gm/30 Ml Udc PO 01/31/25 08:59 20 gm TID TATYANA Administration Multi-Ingred Cream/Lotion/Oil/Oint 1 applic 01/28/25 09:15 01/30/25 08:38 Mineral Oil/White Petrolatum Ointment EACH EYE 1 applic Q12HR TATYANA Administration Ondansetron HCl 4 mg 01/28/25 01:51 Ondansetron Inj 4 Mg/2 Ml Vial IV PUSH Q4H PRN Nausea Pantoprazole Sodium 40 mg 01/28/25 09:00 01/30/25 10:41 Pantoprazole Sodium Iv 40 Mg Vial IV PUSH 40 mg QAM TATYANA Administration Rifaximin 550 mg 01/30/25 10:00 01/30/25 11:08 Rifaximin 550 Mg Tablet PO 550 mg Q12HR TATYANA Administration Sodium Chloride 10 ml 01/28/25 14:00 01/30/25 06:58 Central Line Flush IV PUSH 10 ml Q8HR TATYANA Administration Sodium Chloride 20 ml 01/28/25 06:37 Central Line Flush IV PUSH PRN PRN after blood draws Radiology Results: ITS Impressions Abdomen/Pelvis CTA 01/28/25 00:08 IMPRESSION: Findings within the liver for which malignancy is suspected. Additional findings within the rectum for which acute hemorrhage is suspected (likely secondary to anorectal varices). No findings to suggest upper GI bleeding. 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 Incidental notation is made of cholelithiasis. Head CT 01/28/25 11:51 Impression: No significant abnormality seen. Abdomen X-Ray 01/28/25 13:57 IMPRESSION: 1. Nasogastric tube in stomach. Chest X-Ray 01/30/25 06:46 Impression: 1: Focal consolidation left lower lobe may represent atelectasis and/or pneumonia. 2: Cardiomegaly with mild interstitial edema. 3: Small left pleural effusion. Labs Labs: Laboratory Results - last 24 hr 08/12/1701/29/25 01/29/25 07:18 13:03 14:21 WBC 9.6 RBC 2.43 L Hgb 8.3 L Hct 24.0 L MCV 98.8 MCH 34.2 H MCHC 34.6 RDW 19.6 H Plt Count 103 L MPV 10.6 H Immature Gran % (Auto) Neut % (Auto) Lymph % (Auto) [place] % (Auto) Eos % (Auto) Baso % (Auto) Lymph # (Auto) [place] # (Auto) Eos # (Auto) Baso # (Auto) Abs Immat Gran (auto) Absolute Neuts (auto) Absolute Nucleated RBC Nucleated RBC % % Immature Plt Fraction PT INR Puncture Site ABG pH ABG pCO2 ABG pO2 ABG PO2/FiO2 Ratio ABG HCO3 ABG O2 Saturation ABG O2 Content ABG Base Excess A-a Gradient Oxyhemoglobin Total Hemoglobin O2 Delivery Device O2 Liters/Min Minute Volume Vent Rate Vent Mode FiO2 Tidal Volume PEEP Peak Inspir Pressure Pressure Support Sodium 136 L Potassium 4.2 Chloride 104 Carbon Dioxide 28 Anion Gap 4 BUN 65 H Creatinine 1.31 H Estim Creat Clear Calc 65 Estimated GFR 41 L Glucose 104 POC Capillary Glucose Lactic Acid Calcium 9.4 Phosphorus Magnesium Total Bilirubin AST ALT Alkaline Phosphatase Ammonia C-Reactive Protein Total Protein Albumin [place] [address].0 H 01/29/25 01/30/25 01/30/25 21:33 00:11 04:47 WBC 9.6 9.9 RBC 2.48 L 2.55 L Hgb 8.3 L 8.6 L Hct 24.6 L 25.8 L MCV 99.2 101.2 H MCH 33.5 33.7 MCHC 33.7 33.3 RDW 20.1 H 20.3 H Plt Count 106 L 101 L MPV 10.1 10.5 H Immature Gran % (Auto) 1.1 H Neut % (Auto) 72.1 Lymph % (Auto) 16.0 L [place] % (Auto) 9.8 H Eos % (Auto) 0.8 Baso % (Auto) 0.2 Lymph # (Auto) 1.58 [place] # (Auto) 1.0 H Eos # (Auto) 0.1 Baso # (Auto) 0.0 Abs Immat Gran (auto) 0.11 H Absolute Neuts (auto) 7.1 H Absolute Nucleated RBC 0.110 H Nucleated RBC % 1.1 H % Immature Plt Fraction 3.6 PT 17.7 H INR 1.5 Puncture Site ABG pH ABG pCO2 ABG pO2 ABG PO2/FiO2 Ratio ABG HCO3 ABG O2 Saturation ABG O2 Content ABG Base Excess A-a Gradient Oxyhemoglobin Total Hemoglobin O2 Delivery Device O2 Liters/Min Minute Volume Vent Rate Vent Mode FiO2 Tidal Volume PEEP Peak Inspir Pressure Pressure Support Sodium 139 Potassium 4.4 Chloride 108 H Carbon Dioxide 24 Anion Gap 7 BUN 64 H Creatinine 1.29 H Estim Creat Clear Calc 66 Estimated GFR 42 L Glucose 121 H POC Capillary Glucose 107 H Lactic Acid 1.3 Calcium 9.5 Phosphorus 3.3 Magnesium 1.9 Total Bilirubin 2.5 H AST 242 H ALT 86 H Alkaline Phosphatase 82 Ammonia C-Reactive Protein 5.5 H Total Protein 6.1 L Albumin 3.0 L Tumor Marker AFP 01/30/25 01/30/25 05:36 07:53 WBC RBC Hgb Hct MCV MCH MCHC RDW Plt Count MPV Immature Gran % (Auto) Neut % (Auto) Lymph % (Auto) [place] % (Auto) Eos % (Auto) Baso % (Auto) Lymph # (Auto) [place] # (Auto) Eos # (Auto) Baso # (Auto) Abs Immat Gran (auto) Absolute Neuts (auto) Absolute Nucleated RBC Nucleated RBC % % Immature Plt Fraction PT INR Puncture Site Artline ABG pH 7.443 ABG pCO2 38.1 ABG pO2 70.2 L ABG PO2/FiO2 Ratio 1.75 ABG HCO3 25.5 ABG O2 Saturation 94.8 L ABG O2 Content 12.7 L ABG Base Excess 1.4 A-a Gradient 171.2 Oxyhemoglobin 91.5 Total Hemoglobin 9.8 L O2 Delivery Device Ventilator O2 Liters/Min Not Reportable Minute Volume Not Reportable Vent Rate 18 Vent Mode Cmv FiO2 40 Tidal Volume 400 PEEP 8 Peak Inspir Pressure Not Reportable Pressure Support Not Reportable Sodium Potassium Chloride Carbon Dioxide Anion Gap BUN Creatinine Estim Creat Clear Calc Estimated GFR Glucose POC Capillary Glucose Lactic Acid Calcium Phosphorus Magnesium Total Bilirubin AST ALT Alkaline Phosphatase Ammonia 53 H C-Reactive Protein Total Protein Albumin Tumor Marker AFP Quality VTE Prophylaxis VTE prophylaxis: mechanical ordered
[2025-01-30 12:04] LABS: Hematocrit 23.6 % (37.0-47.0); Hemoglobin 7.9 g/dL (12.0-15.0); Immature Platelet Fraction Pct 3.5 % (0.9-11.2); Mean Corpuscular HGB Conc 33.5 g/dl (32-36); Mean Corpuscular Hemoglobin 34.5 pg (26-34); Mean Corpuscular Volume 103.1 fl (80-100); Platelet Count Result 104 k/mm3 (150-375); Red Blood Count 2.29 M/mm3 (4.2-5.4); White Blood Count 9.6 K/mm3 (4.5-10.0)
[2025-01-30 12:14] LABS: INR 1.6; Prothrombin Time 18.7 Seconds (11.1-14.7)
[2025-01-30 12:15] LABS: Fibrinogen 175 mg/dl (215-510); Partial Thromboplastin Time 28.3 Seconds (22.3-36.8)
[2025-01-30] MEDS: FUROSEMIDE INJ 40 MG/4 ML VIAL IV PUSH (12:32)
[2025-01-30 12:46] LABS: Magnesium 1.9 mg/dL (1.6-2.3)
[2025-01-30] MEDS: fentaNYL CITRATE INJ (*CRX) 100 MCG/2 ML VIAL IV PUSH (15:16)
[2025-01-30] MEDS: MIDAZOLAM HCL (*CRX) 2 MG/2 ML VIAL 4 MG IV PUSH ×2 (15:20→15:44)
[2025-01-30] MEDS: IPRATROPIUM 0.5 MG/ALBUTEROL SULFATE 2.5 MG AMPUL.NEB 3 ML INHALATION ×2 (15:30→20:04)
--- NOTE | 2025-01-30 16:14 | SUR.OPER ---
ICU nurses Mike and ICU metal sorter administering and monitoring sedation.
[2025-01-30] MEDS: dexmedeTOMIDine 400 MCG/100 ML 400 MCG/100 ML BAG 16.5 MCG IV CONT ×2 (16:39→22:52)
--- NOTE | 2025-01-30 17:24 | WPDGIPROGNO ---
Progress Note: A&P Assessment and Plan (1) Esophageal varices: Code(s): I85.00 - Esophageal varices without bleeding Status: Acute Assessment and Plan: The patient's recent EGD showed no active bleeding from esophageal varices. However, band ligation was performed to eradicate the varices and reduce the risk of future bleeding. Despite the lack of current bleeding, the patient's prognosis remains very poor. This is due to her advanced liver disease, a MELD 3.0 score of 19, and, most critically, a multifocal hepatocellular carcinoma with an AFP level exceeding 80,000 U. If recurrent variceal bleeding occurs, a TIPS procedure may not be a viable option. This is because of her existing encephalopathy, which would likely worsen with another GI and a portal vein thrombosis that could make the procedure technically challenging. Given this poor prognosis, especially given no treatment options for her multifocal HCC and advanced cirrhosis, we should discuss comfort measures with the patient's closest relatives. In the meantime, we should continue her current regimen of octreotide, ceftriaxone, lactulose, and rifaximin. There is no indication to continue intravenous pantoprazole, as the bleeding is not acid-related. Discontinuing it may also help reduce the risk of spontaneous bacterial peritonitis. Finally, her coagulopathy is a direct result of her poor liver function. We will not attempt to correct it with plasma transfusions, as this is not indicated and could actually worsen variceal bleeding by increasing blood volume. Subjective Date/time seen: 01/30/25 17:24 Objective Data Vital Signs Vital Signs: Vital Signs - 24 hr 01/29/25 18:00 01/29/25 18:00 01/29/25 18:00 Temperature 97.8 F Pulse Rate 72 72 72 Respiratory Rate 18 18 18 Blood Pressure 107/76 Pulse Oximetry 95 Oxygen Delivery Fraction of Inspired Oxygen 01/29/25 18:00 01/29/25 20:00 01/29/25 20:00 Temperature 97.9 F Pulse Rate 72 68 Respiratory Rate 18 Blood Pressure 113/50 L Pulse Oximetry 95 Oxygen Delivery Fraction of Inspired Oxygen 40 01/29/25 20:00 01/29/25 20:00 01/29/25 20:00 Temperature Pulse Rate 68 68 68 Respiratory Rate 18 18 18 Blood Pressure Pulse Oximetry 95 Oxygen Delivery Mechanical Ventilation Fraction of Inspired Oxygen 40 01/29/25 20:00 01/29/25 20:14 01/29/25 22:00 Temperature Pulse Rate 67 67 67 Respiratory Rate Blood Pressure Pulse Oximetry 95 Oxygen Delivery Mechanical Ventilation Fraction of Inspired Oxygen 40 01/29/25 22:00 01/29/25 22:00 01/29/25 22:00 Temperature 98.0 F Pulse Rate 67 67 67 Respiratory Rate 18 18 18 Blood Pressure 115/51 L Pulse Oximetry 95 Oxygen Delivery Fraction of Inspired Oxygen 01/29/25 23:00 01/29/25 23:40 01/30/25 00:00 Temperature Pulse Rate 66 66 70 Respiratory Rate 18 18 Blood Pressure Pulse Oximetry 96 Oxygen Delivery Mechanical Ventilation Fraction of Inspired Oxygen 40 01/30/25 00:00 01/30/25 00:00 01/30/25 00:00 Temperature 98.0 F Pulse Rate 70 70 Respiratory Rate 18 18 Blood Pressure 117/58 L Pulse Oximetry 96 Oxygen Delivery Fraction of Inspired Oxygen 40 01/30/25 00:00 01/30/25 00:00 01/30/25 00:32 Temperature Pulse Rate 70 69 68 Respiratory Rate 18 18 Blood Pressure Pulse Oximetry 96 Oxygen Delivery Mechanical Ventilation Fraction of Inspired Oxygen 40 01/30/25 00:32 01/30/25 01:00 01/30/25 02:00 Temperature 98.0 F Pulse Rate 68 66 64 Respiratory Rate 18 18 18 Blood Pressure 105/47 L Pulse Oximetry 95 Oxygen Delivery Fraction of Inspired Oxygen 01/30/25 02:00 01/30/25 02:00 01/30/25 02:00 Temperature Pulse Rate 64 66 66 Respiratory Rate 18 18 Blood Pressure Pulse Oximetry Oxygen Delivery Fraction of Inspired Oxygen 01/30/25 02:30 01/30/25 02:57 01/30/25 04:00 Temperature 97.9 F Pulse Rate 65 64 80 Respiratory Rate 18 18 Blood Pressure 114/58 L Pulse Oximetry 100 94 Oxygen Delivery Mechanical Ventilation Fraction of Inspired Oxygen 40 01/30/25 04:00 01/30/25 04:00 01/30/25 04:00 Temperature Pulse Rate 66 94 Respiratory Rate 18 Blood Pressure Pulse Oximetry 96 Oxygen Delivery Mechanical Ventilation Fraction of Inspired Oxygen 40 40 01/30/25 04:00 01/30/25 04:00 01/30/25 05:53 Temperature Pulse Rate 70 70 65 Respiratory Rate 18 18 Blood Pressure Pulse Oximetry 96 Oxygen Delivery Mechanical Ventilation Fraction of Inspired Oxygen 40 01/30/25 06:00 01/30/25 06:00 01/30/25 08:00 Temperature 97.7 F Pulse Rate 65 65 62 Respiratory Rate 18 16 Blood Pressure 113/56 L Pulse Oximetry 100 98 Oxygen Delivery Mechanical Ventilation Fraction of Inspired Oxygen 40 01/30/25 08:00 01/30/25 08:00 01/30/25 08:00 Temperature 97.9 F Pulse Rate 62 62 Respiratory Rate 18 18 Blood Pressure 105/51 L Pulse Oximetry 96 Oxygen Delivery Fraction of Inspired Oxygen 40 01/30/25 08:00 01/30/25 08:00 01/30/25 08:50 Temperature Pulse Rate 62 62 64 Respiratory Rate 18 18 Blood Pressure Pulse Oximetry Oxygen Delivery Fraction of Inspired Oxygen 01/30/25 08:50 01/30/25 08:50 01/30/25 09:10 Temperature Pulse Rate 64 65 72 Respiratory Rate 18 18 Blood Pressure Pulse Oximetry 93 Oxygen Delivery Mechanical Ventilation Fraction of Inspired Oxygen 40 01/30/25 09:28 01/30/25 09:51 01/30/25 09:52 Temperature Pulse Rate 98 87 87 Respiratory Rate 16 16 16 Blood Pressure Pulse Oximetry Oxygen Delivery Fraction of Inspired Oxygen 01/30/25 10:00 01/30/25 10:00 01/30/25 10:00 Temperature 97.8 F Pulse Rate 86 86 86 Respiratory Rate 16 15 15 Blood Pressure 103/58 L Pulse Oximetry 94 Oxygen Delivery Fraction of Inspired Oxygen 01/30/25 10:15 01/30/25 10:15 01/30/25 10:40 Temperature Pulse Rate 83 83 106 H Respiratory Rate 16 16 18 Blood Pressure Pulse Oximetry Oxygen Delivery Fraction of Inspired Oxygen 01/30/25 11:10 01/30/25 11:29 01/30/25 11:53 Temperature Pulse Rate 77 72 70 Respiratory Rate 17 Blood Pressure 75/40 L Pulse Oximetry 99 Oxygen Delivery Mechanical Ventilation Fraction of Inspired Oxygen 40 01/30/25 12:00 01/30/25 12:00 01/30/25 12:00 Temperature Pulse Rate 70 70 70 Respiratory Rate 16 16 Blood Pressure 75/40 L Pulse Oximetry Oxygen Delivery Fraction of Inspired Oxygen 01/30/25 12:00 01/30/25 12:00 01/30/25 12:00 Temperature 98.1 F Pulse Rate 70 70 72 Respiratory Rate 16 16 16 Blood Pressure 75/40 L Pulse Oximetry 93 92 Oxygen Delivery Mechanical Ventilation Fraction of Inspired Oxygen 40 01/30/25 12:00 01/30/25 12:00 01/30/25 12:09 Temperature Pulse Rate 75 76 Respiratory Rate Blood Pressure 131/64 Pulse Oximetry Oxygen Delivery Fraction of Inspired Oxygen 40 01/30/25 12:12 01/30/25 12:17 01/30/25 13:38 Temperature Pulse Rate 76 75 70 Respiratory Rate 16 Blood Pressure 132/64 Pulse Oximetry 95 Oxygen Delivery Mechanical Ventilation Fraction of Inspired Oxygen 40 01/30/25 13:43 01/30/25 13:44 01/30/25 14:00 Temperature 97.8 F Pulse Rate 72 71 82 Respiratory Rate 17 18 Blood Pressure 104/77 119/92 H Pulse Oximetry 95 Oxygen Delivery Fraction of Inspired Oxygen 01/30/25 14:00 01/30/25 14:00 01/30/25 14:00 Temperature Pulse Rate 72 70 70 Respiratory Rate 18 Blood Pressure 89/72 L Pulse Oximetry Oxygen Delivery Fraction of Inspired Oxygen 01/30/25 14:00 01/30/25 14:00 01/30/25 14:27 Temperature 98.0 F Pulse Rate 70 70 70 Respiratory Rate 18 18 18 Blood Pressure 126/65 Pulse Oximetry 93 Oxygen Delivery Fraction of Inspired Oxygen 01/30/25 14:35 01/30/25 14:37 01/30/25 14:49 Temperature 98 F 98 F 98 F Pulse Rate 70 69 70 Respiratory Rate 18 18 18 Blood Pressure 128/66 128/66 129/67 Pulse Oximetry 93 93 94 Oxygen Delivery Fraction of Inspired Oxygen 01/30/25 14:51 01/30/25 14:59 01/30/25 15:14 Temperature 98 F 97.9 F Pulse Rate 70 67 67 Respiratory Rate 18 18 Blood Pressure 127/65 111/60 117/62 Pulse Oximetry 94 94 Oxygen Delivery Fraction of Inspired Oxygen 01/30/25 15:30 01/30/25 15:30 01/30/25 15:45 Temperature Pulse Rate 66 68 67 Respiratory Rate 16 16 Blood Pressure Pulse Oximetry 95 Oxygen Delivery Mechanical Ventilation Fraction of Inspired Oxygen 40 01/30/25 16:00 01/30/25 16:00 01/30/25 16:00 Temperature 97.8 F Pulse Rate 71 72 71 Respiratory Rate 17 18 Blood Pressure 123/76 Pulse Oximetry 95 95 Oxygen Delivery Mechanical Ventilation Fraction of Inspired Oxygen 40 01/30/25 16:00 01/30/25 16:00 01/30/25 16:00 Temperature Pulse Rate 66 66 Respiratory Rate 18 Blood Pressure 99/56 L Pulse Oximetry Oxygen Delivery Fraction of Inspired Oxygen 40 01/30/25 16:00 01/30/25 16:00 01/30/25 16:14 Temperature 97.8 F Pulse Rate 66 66 73 Respiratory Rate 18 18 18 Blood Pressure 117/62 Pulse Oximetry 95 Oxygen Delivery Fraction of Inspired Oxygen 01/30/25 16:39 01/30/25 16:39 01/30/25 17:09 Temperature Pulse Rate 70 70 70 Respiratory Rate 18 18 Blood Pressure 127/67 Pulse Oximetry Oxygen Delivery Fraction of Inspired Oxygen 01/30/25 17:14 Temperature 97.6 F Pulse Rate 68 Respiratory Rate 18 Blood Pressure 112/61 Pulse Oximetry 94 Oxygen Delivery Fraction of Inspired Oxygen Intake/Output Intake/Output: Intake & Output 01/27/25 01/28/25 01/29/25 01/30/25 23:59 23:59 23:59 23:59 Intake Total 3430.1 4819.6 1763.4 Output Total 50 4824 074 5902 Balance -50 2405.1 3894.6 -886.6 Meds/Results Medications: Active Medications Generic Name Dose Route Start Last Admin Trade Name Freq PRN Reason Stop Dose Admin Albuterol/Ipratropium 3 ml 01/30/25 14:00 01/30/25 15:30 Ipratropium 0.5 Mg/Albuterol Sulfate 2.5 Mg Ampul.Neb 3 Ml INHALATION 3 ml Q6HRT TATYANA Administration Octreotide Acetate 500 mcg/ 100 mls @ 10 mls/hr 01/27/25 22:00 01/30/25 10:41 Sodium Chloride IV CONT 50 mcg/hr .Q10H TATYANA 10 mls/hr Administration 50 MCG/HR Ceftriaxone Sodium 2 gm/ 50 mls @ 100 mls/hr 01/28/25 09:00 01/30/25 09:08 Sodium Chloride IVPB Infused Q24H TATYANA Infusion Fentanyl Citrate 2,500 mcg in 250 mls @ 0 mls/hr 01/28/25 09:10 01/30/25 16:00 Fentanyl 2,500 Mcg/Ns 250 Ml IV CONT 0 mcg/hr .Q0M TATYANA 0 mls/hr Titration Protocol 0 MCG/HR Midazolam HCl 100 mg in 100 mls @ 0 mls/hr 01/28/25 09:10 01/30/25 16:00 Versed 100 Mg/Ns 100 Ml IV CONT 0 mg/hr .Q0M TATYANA 0 mls/hr Titration Protocol 0 MG/HR Dexmedetomidine HCl 400 mcg in 100 mls @ 16.5 mls/hr 01/30/25 10:30 01/30/25 16:39 Precedex 400 Mcg/100 Ml IV CONT 0.4 mcg/kg/hr .Q6H4M TATYANA 16.5 mls/hr Administration Protocol 0.4 MCG/KG/HR Norepinephrine Bitartrate 8 mg in 250 mls @ 0 mls/hr 01/30/25 11:50 01/30/25 17:09 Levophed 8 Mg/D5w 250 Ml IV CONT 0 mcg/min .Q0M TATYANA 0 mls/hr Titration Protocol 0 MCG/MIN Sodium Chloride 250 mls @ 30 mls/hr 01/30/25 13:52 01/30/25 15:44 Normal Saline Iv IV CONT 01/30/25 22:11 Not Given .Q8H20M STA Lactulose 20 gm 01/29/25 09:00 01/30/25 16:13 Lactulose 20 Gm/30 Ml Udc PO 01/31/25 08:59 Not Given TID TATYANA Multi-Ingred Cream/Lotion/Oil/Oint 1 applic 01/28/25 09:15 01/30/25 08:38 Mineral Oil/White Petrolatum Ointment EACH EYE 1 applic Q12HR TATYANA Administration Ondansetron HCl 4 mg 01/28/25 01:51 Ondansetron Inj 4 Mg/2 Ml Vial IV PUSH Q4H PRN Nausea Pantoprazole Sodium 40 mg 01/28/25 09:00 01/30/25 10:41 Pantoprazole Sodium Iv 40 Mg Vial IV PUSH 40 mg QAM TATYANA Administration Rifaximin 550 mg 01/30/25 10:00 01/30/25 11:08 Rifaximin 550 Mg Tablet PO 550 mg Q12HR TATYANA Administration Sodium Chloride 10 ml 01/28/25 14:00 01/30/25 14:51 Central Line Flush IV PUSH 10 ml Q8HR TATYANA Administration Sodium Chloride 20 ml 01/28/25 06:37 Central Line Flush IV PUSH PRN PRN after blood draws Radiology Results: ITS Impressions Abdomen/Pelvis CTA 01/28/25 00:08 IMPRESSION: Findings within the liver for which malignancy is suspected. Additional findings within the rectum for which acute hemorrhage is suspected (likely secondary to anorectal varices). No findings to suggest upper GI bleeding. 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 Incidental notation is made of cholelithiasis. Head CT 01/28/25 11:51 Impression: No significant abnormality seen. Abdomen X-Ray 01/28/25 13:57 IMPRESSION: 1. Nasogastric tube in stomach. Chest X-Ray 01/30/25 06:46 Impression: 1: Focal consolidation left lower lobe may represent atelectasis and/or pneumonia. 2: Cardiomegaly with mild interstitial edema. 3: Small left pleural effusion. Labs Labs: Laboratory Results - last 24 hr 01/27/25 01/29/25 01/30/25 21:44 21:33 00:11 WBC 9.6 RBC 2.48 L Hgb 8.3 L Hct 24.6 L MCV 99.2 MCH 33.5 MCHC 33.7 RDW 20.1 H Plt Count 106 L MPV 10.1 Immature Gran % (Auto) Neut % (Auto) Lymph % (Auto) [place] % (Auto) Eos % (Auto) Baso % (Auto) Lymph # (Auto) [place] # (Auto) Eos # (Auto) Baso # (Auto) Abs Immat Gran (auto) Absolute Neuts (auto) Absolute Nucleated RBC Nucleated RBC % % Immature Plt Fraction 3.6 PT INR APTT Fibrinogen D-Dimer Puncture Site ABG pH ABG pCO2 ABG pO2 ABG PO2/FiO2 Ratio ABG HCO3 ABG O2 Saturation ABG O2 Content ABG Base Excess A-a Gradient Oxyhemoglobin Total Hemoglobin O2 Delivery Device O2 Liters/Min Minute Volume Vent Rate Vent Mode FiO2 Tidal Volume PEEP Peak Inspir Pressure Pressure Support Sodium Potassium Chloride Carbon Dioxide Anion Gap BUN Creatinine Estim Creat Clear Calc Estimated GFR Glucose POC Capillary Glucose 107 H Lactic Acid Calcium Phosphorus Magnesium Total Bilirubin AST ALT Alkaline Phosphatase Ammonia C-Reactive Protein Total Protein Albumin Blood Type A Positive Antibody Screen Negative Crossmatch See Detail 01/30/25 01/30/25 01/30/25 04:47 05:36 07:53 WBC 9.9 RBC 2.55 L Hgb 8.6 L Hct 25.8 L MCV 101.2 H MCH 33.7 MCHC 33.3 RDW 20.3 H Plt Count 101 L MPV 10.5 H Immature Gran % (Auto) 1.1 H Neut % (Auto) 72.1 Lymph % (Auto) 16.0 L [place] % (Auto) 9.8 H Eos % (Auto) 0.8 Baso % (Auto) 0.2 Lymph # (Auto) 1.58 [place] # (Auto) 1.0 H Eos # (Auto) 0.1 Baso # (Auto) 0.0 Abs Immat Gran (auto) 0.11 H Absolute Neuts (auto) 7.1 H Absolute Nucleated RBC 0.110 H Nucleated RBC % 1.1 H % Immature Plt Fraction PT 17.7 H INR 1.5 APTT Fibrinogen D-Dimer Puncture Site Artline ABG pH 7.443 ABG pCO2 38.1 ABG pO2 70.2 L ABG PO2/FiO2 Ratio 1.75 ABG HCO3 25.5 ABG O2 Saturation 94.8 L ABG O2 Content 12.7 L ABG Base Excess 1.4 A-a Gradient 171.2 Oxyhemoglobin 91.5 Total Hemoglobin 9.8 L O2 Delivery Device Ventilator O2 Liters/Min Not Reportable Minute Volume Not Reportable Vent Rate 18 Vent Mode Cmv FiO2 40 Tidal Volume 400 PEEP 8 Peak Inspir Pressure Not Reportable Pressure Support Not Reportable Sodium 139 Potassium 4.4 Chloride 108 H Carbon Dioxide 24 Anion Gap 7 BUN 64 H Creatinine 1.29 H Estim Creat Clear Calc 66 Estimated GFR 42 L Glucose 121 H POC Capillary Glucose Lactic Acid 1.3 Calcium 9.5 Phosphorus 3.3 Magnesium 1.9 Total Bilirubin 2.5 H AST 242 H ALT 86 H Alkaline Phosphatase 82 Ammonia 53 H C-Reactive Protein 5.5 H Total Protein 6.1 L Albumin 3.0 L Blood Type Antibody Screen Crossmatch 01/30/25 01/30/25 11:49 12:04 WBC 9.6 RBC 2.29 L Hgb 7.9 L Hct 23.6 L MCV 103.1 H MCH 34.5 H MCHC 33.5 RDW 20.6 H Plt Count 104 L MPV 10.2 Immature Gran % (Auto) Neut % (Auto) Lymph % (Auto) [place] % (Auto) Eos % (Auto) Baso % (Auto) Lymph # (Auto) [place] # (Auto) Eos # (Auto) Baso # (Auto) Abs Immat Gran (auto) Absolute Neuts (auto) Absolute Nucleated RBC Nucleated RBC % % Immature Plt Fraction 3.5 PT 18.7 H INR 1.6 APTT 28.3 Fibrinogen 175 L D-Dimer 3.27 H Puncture Site ABG pH ABG pCO2 ABG pO2 ABG PO2/FiO2 Ratio ABG HCO3 ABG O2 Saturation ABG O2 Content ABG Base Excess A-a Gradient Oxyhemoglobin Total Hemoglobin O2 Delivery Device O2 Liters/Min Minute Volume Vent Rate Vent Mode FiO2 Tidal Volume PEEP Peak Inspir Pressure Pressure Support Sodium Potassium Chloride Carbon Dioxide Anion Gap BUN Creatinine Estim Creat Clear Calc Estimated GFR Glucose POC Capillary Glucose 131 H Lactic Acid Calcium Phosphorus Magnesium 1.9 Total Bilirubin AST ALT Alkaline Phosphatase Ammonia C-Reactive Protein Total Protein Albumin Blood Type Antibody Screen Crossmatch
--- NOTE | 2025-01-30 23:35 | PC.NURSE ---
Daughter Modesta Stearns( [phone] updated on patient condition and plan of care. Family aware of 10am Multidisciplinary rounding, and advised to call around 11am for updated from a steam heating installer.
[2025-01-31] VITALS (34 sets, daily range): BP systolic 94–119; BP diastolic 53–89; PULSE 5–72; RESP 15–22; TEMP 36.5–37.2; O2SAT 92–97
[2025-01-31] MEDS: IPRATROPIUM 0.5 MG/ALBUTEROL SULFATE 2.5 MG AMPUL.NEB 3 ML INHALATION ×4 (02:01→20:03)
[2025-01-31 04:59] LABS: Alveolar/Arterial O2 Gradient 125.3 mmHg; Fractional Inspired Oxygen 35 %; HCO3 ABG 24.5 mEq/l (22.0-26.0); Oxygen Content ABG 13.7 %vol (16.0-22.0); Oxygen Saturation ABG 97.1 % (95.0-100.0); PCO2 ABG 33.7 mmHg (35.0-45.0); PO2 ABG 85.1 mmHg (80.0-100.0); PO2 FiO2 Ratio Arterial Blood 2.43 %
[2025-01-31 05:00] LABS: Site Drawn ARTLINE
[2025-01-31 05:01] LABS: Arterial Blood Gas Tidal Volume 400 ml; Arterial Blood Gas Ventilator rate 18 /MIN
[2025-01-31] MEDS: dexmedeTOMIDine 400 MCG/100 ML 400 MCG/100 ML BAG 16.5 MCG IV CONT ×3 (05:04→22:50)
[2025-01-31 05:09] LABS: Hematocrit 28.2 % (37.0-47.0); Hemoglobin 9.7 g/dL (12.0-15.0); Immature Granulocyte Percent A 1.2 % (0-0.5); Immature Platelet Fraction Pct 3.2 % (0.9-11.2); Lymphocytes Absolute Auto 1.18 K/mm3 (0.9-3.2); Mean Corpuscular HGB Conc 34.4 g/dl (32-36); Mean Corpuscular Hemoglobin 33.6 pg (26-34); Mean Corpuscular Volume 97.6 fl (80-100); Nucleated Red Blood Cells Absolute Auto 0.090 K/mm3 (0.0-0.012); Nucleated Red Blood Cells Perc 1.1 % (0.0-0.2); Platelet Count Result 100 k/mm3 (150-375); Red Blood Count 2.89 M/mm3 (4.2-5.4); White Blood Count 8.3 K/mm3 (4.5-10.0)
[2025-01-31 05:17] LABS: Ammonia 56 umol/L (9-30)
[2025-01-31 05:18] LABS: INR 1.5; Prothrombin Time 17.9 Seconds (11.1-14.7)
[2025-01-31 05:21] LABS: Alanine Aminotransferase 67 U/L (6-35); Albumin Level 3.2 g/dL (3.5-5.1); Alkaline Phosphatase 73 U/L (38-126); Anion Gap 8 mmol/L (4-12); Aspartate Amino Transferase 222 U/L (14-36); Bilirubin,Total 2.8 mg/dL (0.2-1.3); Blood Urea Nitrogen 63 mg/dL (7-17); CRP 8.3 mg/dL (<1.0); Calcium 9.5 mg/dL (8.4-10.2); Carbon Dioxide 23 mmol/L (22-30); Chloride 108 mmol/L (98-107); Estimated CRCL calculation 74 ml/min; Estimated Glomerular Filt Rate 48; Glucose 138 mg/dL (65-110); Magnesium 2.0 mg/dL (1.6-2.3); Potassium 4.3 mmol/L (3.4-5.0); Sodium 139 mmol/L (137-145); Total Protein 6.5 g/dL (6.3-8.2)
[2025-01-31] MEDS: OCTREOTIDE ACETATE 500 MCG in SODIUM CHLORIDE 0.9% IV 99 ML 10 MCG IV CONT ×2 (06:55→16:37)
[2025-01-31] MEDS: CENTRAL LINE FLUSH 10 ML IV PUSH ×3 (06:56→19:55)
[2025-01-31] MEDS: MINERAL OIL/WHITE PETROLATUM OINTMENT 1 APPLIC EACH EYE ×2 (08:00→19:54)
[2025-01-31] MEDS: cefTRIAXone 2 GM in SODIUM CHLORIDE 0.9% IV 50 ML 100 ML IVPB (08:00)
--- NOTE | 2025-01-31 08:52 | WPDINTPN ---
Progress Note: A&P Assessment and Plan (1) Hemorrhagic shock: Code(s): R57.8 - Other shock Status: Acute Assessment and Plan: Pt presented with rectal bleed, CT showed esophageal and rectal varices. -Transfused 2 units unmatched PRBC in the ER -hemoglobin this morning is 9.3, platelets 186 -01/28: INR 1.6, will give vitamin K -01/28: Transfused 1 unit of FFP and 1 unit of packed RBC -01/30: 1 unit of FFP and 1 unit of packed RBCs were transfused -patient adequately fluid-resuscitated -OFF pressors at this, maintain MAP > 65 mmHg or SBP > 100 mmHg for adequate end organ perfusion -01/29: Hb 7.3, INR 1.8 this morning. Transfused 1 unit of FFP and 1 unit of packed RBC, will also repeat vitamin K IVPB -01/30: Hemoglobin remained stable, decreased NG output. Discussed with GI, will continue octreotide. Discontinued Protonix infusion and IV Protonix -01/31: Hemoglobin is 9.7 this morning and stable, NG was removed 01/30 with EGD. Will continue octreotide per GI 01/28: CTA scan of the abdomen and pelvis: Findings within the liver for which malignancy is suspected. Additional findings within the rectum for which acute hemorrhage is suspected (likely secondary to anorectal varices). No findings to suggest upper GI bleeding. 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 Incidental notation is made of cholelithiasis. (2) Esophageal varices: Qualifiers: Esophageal varices bleeding: with bleeding Esophageal varices type: unspecified type Qualified Code(s): I85.01 - Esophageal varices with bleeding Code(s): I85.00 - Esophageal varices without bleeding Status: Acute Assessment and Plan: Esophageal varices as seen on CTA abdomen and pelvis. -appreciate GI evaluation -01/28: EGD: Showed actively bleeding gastric varix at the gastric cardia, a band ligation device was used to place 1 band, moderate gastritis was seen in the stomach. The gastric has a moderate portal hypertensive change. Large amount of blood was seen in the distal esophagus and the stomach the bowel and the 2nd portion of duodenum was normal with no ulcers or masses 01/30: Repeat EGD: Showed medium grade 3 varices (large varices almost occluding the esophageal lumen were present in the distal esophagus. There was no evidence of bleeding bleeding corresponding to the previous band. To more bands were placed. There was a large fundal pool of blood in the stomach. The bulb and the 2nd portion of duodenum was normal Appreciate GI following the patient, discussed with GI, will continue octreotide infusion per GI -NG tube with bloody drainage, has slowed down, drainage in the FMS has also slowed down (3) Rectal varices: Code(s): K64.9 - Unspecified hemorrhoids Status: Acute Assessment and Plan: Likely related to alcoholic cirrhosis, (4) Alcoholic cirrhosis of liver with ascites: Code(s): K70.31 - Alcoholic cirrhosis of liver with ascites Status: Acute Assessment and Plan: History of alcoholic cirrhosis -LFTs and bilirubin elevated but stable -could be related to shock liver, cirrhosis, bleeding -continue ceftriaxone (01/28) for SBP prophylaxis -continue to monitor LFTs and bilirubin -INR elevated, status post vitamin K and FFP, INR is stable at 1.5 -continue to monitor (5) Airway compromise: Code(s): J98.8 - Other specified respiratory disorders Status: Acute Assessment and Plan: Patient encephalopathic with elevated ammonia level, not protecting her airway, also intubated for aspiration prevention and for EGD -01/28: Intubated patient for airway protection due to encephalopathy -currently on CMV mode of ventilation, peep of 5 and 35% FiO2 -chest x-ray and ABGs reviewed, maintain O2 sats > 92% - -sedated with Precedex infusion, will have bedside RN. Precedex and try to wake up patient once more awake will place her on SBT (6) Acute kidney injury: Code(s): N17.9 - Acute kidney failure, unspecified Status: Acute Assessment and Plan: Acute kidney injury, likely related to hemorrhagic shock -low urine output, creatinine and BUN improving -off pressors, blood pressures remained stable, will allow higher MAP, for adequate end organ perfusion -continue to monitor urine output, renal function electrolytes (7) Encephalopathy: Code(s): G93.40 - Encephalopathy, unspecified Status: Acute Assessment and Plan: Likely related to hyperammonemia -continue lactulose, will switch to rectal lactulose due to discontinuation of NG tube with EGD on 01/30 -had started patient on rifaximin, now will have to hold since patient does not have an NG tube -continue to monitor ammonia level (8) Abnormal CT of liver: Code(s): R93.2 - Abnormal findings on diagnostic imaging of liver and biliary tract Status: Acute Assessment and Plan: CT abdomen and pelvis as above: Suspicious for malignancy -AFP significantly elevated to 83,546 (0.0-9.2) -GI is following the patient: Recommended may need MRI liver protocol when more stable and extubated Plan DVT prophylaxis: SCDs, no chemoprophylaxis due to hemorrhagic shock and GI bleed Stress ulcer prophylaxis: None at this time according to GI Nutrition: NPO Code Status: Full code Critical Care Time Spent: 34 minutes Discussed with Jinny Cabezas, patient's sister and updated her with patient's condition and plan of care. She stated that the patient has a daughter with anemia of [place] Jinny, she was supposed to contact the daughter and I asked to give me a call. Will try to locate daughter's number and will give her a call and explain to her patient's condition/situation and recommendations of the pipefitter welder. Due to a high probability of clinically significant, life threatening deterioration, the patient required my highest level of preparedness to intervene emergently and I personally spent this critical care time directly and personally managing the patient. This critical care time included obtaining a history; examining the patient; pulse oximetry; ordering and review of studies; arranging urgent treatment with development of a management plan; evaluation of patient's response to treatment; frequent reassessment; and discussions with other providers. It was exclusive of separately billable procedures and treating other patients and teaching time. Please see Assessment and Plan section and the rest of the note for further information on patient assessment and treatment This dictation may have been done utilizing a voice recognition system. Attempts have been made to correct errors. However, there may be uncorrected grammatical, spelling, and recognitions errors present. Subjective Date/time seen: 01/31/25 08:52 Interval history: Reason for consult: GI bleed, Esophageal and rectal varices, shock, altered mental status, anisocoria, unable to protect her airway, intubated and on mechanical ventilator, hyperkalemia, acute renal failure, elevated LFTs 01/28: EGD: Showed actively bleeding gastric varix at the gastric cardia, a band ligation device was used to place 1 band, moderate gastritis was seen in the stomach. The gastric has a moderate portal hypertensive change. Large amount of blood was seen in the distal esophagus and the stomach the bowel and the 2nd portion of duodenum was normal with no ulcers or masses 01/30: Repeat EGD: Showed medium grade 3 varices (large varices almost occluding the esophageal lumen were present in the distal esophagus. There was no evidence of bleeding bleeding corresponding to the previous band. To more bands were placed. There was a large fundal pool of blood in the stomach. The bulb and the 2nd portion of duodenum was normal 01/31/2025: Patient seen and examined the ICU. Remains intubated on CMV mode of ventilation, peep of 5, 35 % FiO2. On low-dose Precedex infusion. Urine output has been good in response to diuretic yesterday. BUN creatinine are improving. Off all pressor. Received 1 unit of packed RBCs yesterday, hemoglobin stable and improved this more. INR remains 1.5. LFTs remain elevated but stable, total bilirubin 2.8. Patient does not open her eyes or follow simple, withdraws to pain in all extremities Review of Systems Review of Systems: ROS unobtainable: Yes unobtainable due to endotracheal tube, unobtainable due to medical condition and unobtainable due to mental status Exam Narrative: General: Patient is intubated and sedated in no acute distress HEENT:? Pupils unequal, R>L, but reactive, sclera is icteric Neck:? supple Respiratory:? Coarse breath sounds bilaterally, decreased at bases, diffuse wheezing Cardiac:? S1 S2 normal, regular rate and rhythm Abdomen:? soft, nontender, non distended, morbidly obese, hypoactive bowel sounds Extremities:?b/l edema of lower extremities, palpable pedal pulses Neuro:? Patient is intubated, sedated, does not open eyes or follow simple commands. For withdraws to pain stimulus Skin:? Feet are warm today Psych:? unable to assess Objective Data Vital Signs Vital Signs: Vital Signs - 24 hr 01/30/25 09:10 01/30/25 09:28 01/30/25 09:51 Temperature Pulse Rate 72 98 87 Respiratory Rate 16 16 Blood Pressure Pulse Oximetry 93 Oxygen Delivery Mechanical Ventilation Fraction of Inspired Oxygen 40 01/30/25 09:52 01/30/25 10:00 01/30/25 10:00 Temperature Pulse Rate 87 86 86 Respiratory Rate 16 16 15 Blood Pressure Pulse Oximetry Oxygen Delivery Fraction of Inspired Oxygen 01/30/25 10:00 01/30/25 10:15 01/30/25 10:15 Temperature 97.8 F Pulse Rate 86 83 83 Respiratory Rate 15 16 16 Blood Pressure 103/58 L Pulse Oximetry 94 Oxygen Delivery Fraction of Inspired Oxygen 01/30/25 10:40 01/30/25 11:10 01/30/25 11:29 Temperature Pulse Rate 106 H 77 72 Respiratory Rate 18 17 Blood Pressure Pulse Oximetry 99 Oxygen Delivery Mechanical Ventilation Fraction of Inspired Oxygen 40 01/30/25 11:53 01/30/25 12:00 01/30/25 12:00 Temperature Pulse Rate 70 70 70 Respiratory Rate 16 Blood Pressure 75/40 L 75/40 L Pulse Oximetry Oxygen Delivery Fraction of Inspired Oxygen 01/30/25 12:00 01/30/25 12:00 01/30/25 12:00 Temperature 98.1 F Pulse Rate 70 70 70 Respiratory Rate 16 16 16 Blood Pressure 75/40 L Pulse Oximetry 93 Oxygen Delivery Fraction of Inspired Oxygen 01/30/25 12:00 01/30/25 12:00 01/30/25 12:00 Temperature Pulse Rate 72 75 Respiratory Rate 16 Blood Pressure Pulse Oximetry 92 Oxygen Delivery Mechanical Ventilation Fraction of Inspired Oxygen 40 40 01/30/25 12:09 01/30/25 12:12 01/30/25 12:17 Temperature Pulse Rate 76 76 75 Respiratory Rate 16 Blood Pressure 131/64 132/64 Pulse Oximetry Oxygen Delivery Fraction of Inspired Oxygen 01/30/25 13:38 01/30/25 13:43 01/30/25 13:44 Temperature Pulse Rate 70 72 71 Respiratory Rate 17 Blood Pressure 104/77 Pulse Oximetry 95 Oxygen Delivery Mechanical Ventilation Fraction of Inspired Oxygen 40 01/30/25 14:00 01/30/25 14:00 01/30/25 14:00 Temperature 97.8 F Pulse Rate 82 72 70 Respiratory Rate 18 18 Blood Pressure 119/92 H Pulse Oximetry 95 Oxygen Delivery Fraction of Inspired Oxygen 01/30/25 14:00 01/30/25 14:00 01/30/25 14:00 Temperature Pulse Rate 70 70 70 Respiratory Rate 18 18 Blood Pressure 89/72 L Pulse Oximetry Oxygen Delivery Fraction of Inspired Oxygen 01/30/25 14:27 01/30/25 14:35 01/30/25 14:37 Temperature 98.0 F 98 F 98 F Pulse Rate 70 70 69 Respiratory Rate 18 18 18 Blood Pressure 126/65 128/66 128/66 Pulse Oximetry 93 93 93 Oxygen Delivery Fraction of Inspired Oxygen 01/30/25 14:49 01/30/25 14:51 01/30/25 14:59 Temperature 98 F 98 F Pulse Rate 70 70 67 Respiratory Rate 18 18 Blood Pressure 129/67 127/65 111/60 Pulse Oximetry 94 94 Oxygen Delivery Fraction of Inspired Oxygen 01/30/25 15:14 01/30/25 15:30 01/30/25 15:30 Temperature 97.9 F Pulse Rate 67 66 68 Respiratory Rate 18 16 Blood Pressure 117/62 Pulse Oximetry 94 95 Oxygen Delivery Mechanical Ventilation Fraction of Inspired Oxygen 40 01/30/25 15:45 01/30/25 16:00 01/30/25 16:00 Temperature 97.8 F Pulse Rate 67 71 72 Respiratory Rate 16 17 18 Blood Pressure 123/76 Pulse Oximetry 95 95 Oxygen Delivery Mechanical Ventilation Fraction of Inspired Oxygen 40 01/30/25 16:00 01/30/25 16:00 01/30/25 16:00 Temperature Pulse Rate 71 66 Respiratory Rate 18 Blood Pressure Pulse Oximetry Oxygen Delivery Fraction of Inspired Oxygen 40 01/30/25 16:00 01/30/25 16:00 01/30/25 16:00 Temperature Pulse Rate 66 66 66 Respiratory Rate 18 18 Blood Pressure 99/56 L Pulse Oximetry Oxygen Delivery Fraction of Inspired Oxygen 01/30/25 16:14 01/30/25 16:39 01/30/25 16:39 Temperature 97.8 F Pulse Rate 73 70 70 Respiratory Rate 18 18 18 Blood Pressure 117/62 Pulse Oximetry 95 Oxygen Delivery Fraction of Inspired Oxygen 01/30/25 17:09 01/30/25 17:14 01/30/25 17:50 Temperature 97.6 F Pulse Rate 70 68 65 Respiratory Rate 18 Blood Pressure 127/67 112/61 90/51 L Pulse Oximetry 94 Oxygen Delivery Fraction of Inspired Oxygen 01/30/25 17:53 01/30/25 18:00 01/30/25 18:00 Temperature 97.5 F L Pulse Rate 65 65 65 Respiratory Rate 22 H Blood Pressure 90/51 L 94/58 L Pulse Oximetry 92 Oxygen Delivery Fraction of Inspired Oxygen 01/30/25 18:00 01/30/25 18:00 01/30/25 18:00 Temperature Pulse Rate 65 65 65 Respiratory Rate 23 H 23 H Blood Pressure 93/57 L Pulse Oximetry Oxygen Delivery Fraction of Inspired Oxygen 01/30/25 18:00 01/30/25 18:09 01/30/25 18:15 Temperature Pulse Rate 65 69 Respiratory Rate 23 H Blood Pressure 139/82 Pulse Oximetry Oxygen Delivery Mechanical Ventilation Fraction of Inspired Oxygen 40 01/30/25 20:00 01/30/25 20:00 01/30/25 20:00 Temperature 97.5 F L Pulse Rate 59 L 61 60 Respiratory Rate 18 18 Blood Pressure 101/65 Pulse Oximetry 94 95 Oxygen Delivery Mechanical Ventilation Fraction of Inspired Oxygen 40 01/30/25 20:00 01/30/25 20:00 01/30/25 20:00 Temperature Pulse Rate 60 60 60 Respiratory Rate 18 18 Blood Pressure 102/71 Pulse Oximetry Oxygen Delivery Fraction of Inspired Oxygen 01/30/25 20:00 01/30/25 20:00 01/30/25 20:00 Temperature Pulse Rate 60 60 Respiratory Rate 18 Blood Pressure Pulse Oximetry 96 Oxygen Delivery Mechanical Ventilation Fraction of Inspired Oxygen 40 40 01/30/25 20:06 01/30/25 20:16 01/30/25 22:00 Temperature 97.9 F Pulse Rate 59 L 60 62 Respiratory Rate 18 18 18 Blood Pressure 102/64 Pulse Oximetry 95 Oxygen Delivery Fraction of Inspired Oxygen 01/30/25 22:00 01/30/25 22:00 01/30/25 22:00 Temperature Pulse Rate 63 63 63 Respiratory Rate 18 18 18 Blood Pressure Pulse Oximetry Oxygen Delivery Fraction of Inspired Oxygen 01/30/25 22:00 01/30/25 22:00 01/30/25 22:52 Temperature Pulse Rate 63 63 59 L Respiratory Rate 18 Blood Pressure 96/56 L Pulse Oximetry Oxygen Delivery Fraction of Inspired Oxygen 01/30/25 22:52 01/30/25 23:15 01/31/25 00:00 Temperature Pulse Rate 59 L 58 L Respiratory Rate 18 Blood Pressure Pulse Oximetry 95 Oxygen Delivery Mechanical Ventilation Fraction of Inspired Oxygen 40 40 01/31/25 00:00 01/31/25 00:00 01/31/25 00:00 Temperature Pulse Rate 56 L 56 L 56 L Respiratory Rate 18 18 18 Blood Pressure Pulse Oximetry Oxygen Delivery Fraction of Inspired Oxygen 01/31/25 00:00 01/31/25 00:00 01/31/25 00:00 Temperature 97.8 F Pulse Rate 56 L 56 L 56 L Respiratory Rate 18 Blood Pressure 101/65 101/65 Pulse Oximetry 93 Oxygen Delivery Fraction of Inspired Oxygen 01/31/25 00:00 01/31/25 02:00 01/31/25 02:00 Temperature 97.8 F Pulse Rate 60 53 L 54 L Respiratory Rate 18 18 Blood Pressure 102/63 Pulse Oximetry 96 96 95 Oxygen Delivery Mechanical Ventilation Mechanical Ventilation Fraction of Inspired Oxygen 40 40 01/31/25 02:00 01/31/25 02:00 01/31/25 02:00 Temperature Pulse Rate 55 L 55 L 55 L Respiratory Rate 18 18 Blood Pressure Pulse Oximetry Oxygen Delivery Fraction of Inspired Oxygen 01/31/25 02:00 01/31/25 02:00 01/31/25 02:04 Temperature Pulse Rate 55 L 55 L 53 L Respiratory Rate 18 18 Blood Pressure 99/65 L Pulse Oximetry Oxygen Delivery Fraction of Inspired Oxygen 01/31/25 02:12 01/31/25 04:00 01/31/25 04:00 Temperature 98.0 F Pulse Rate 55 L 56 L 56 L Respiratory Rate 18 18 18 Blood Pressure 103/64 Pulse Oximetry 96 Oxygen Delivery Fraction of Inspired Oxygen 01/31/25 04:00 01/31/25 04:00 01/31/25 04:00 Temperature Pulse Rate 56 L 56 L 56 L Respiratory Rate 18 18 Blood Pressure 99/53 L Pulse Oximetry Oxygen Delivery Fraction of Inspired Oxygen 01/31/25 04:00 01/31/25 04:00 01/31/25 04:00 Temperature Pulse Rate 5 L 56 L Respiratory Rate 18 Blood Pressure Pulse Oximetry 96 Oxygen Delivery Mechanical Ventilation Fraction of Inspired Oxygen 40 40 01/31/25 05:03 01/31/25 05:04 01/31/25 05:04 Temperature Pulse Rate 56 L 55 L 55 L Respiratory Rate 18 18 Blood Pressure Pulse Oximetry 95 Oxygen Delivery Mechanical Ventilation Fraction of Inspired Oxygen 35 01/31/25 06:00 01/31/25 06:00 01/31/25 06:00 Temperature Pulse Rate 57 L 56 L 56 L Respiratory Rate 18 18 18 Blood Pressure Pulse Oximetry Oxygen Delivery Fraction of Inspired Oxygen 01/31/25 06:00 01/31/25 06:00 01/31/25 07:17 Temperature 98.1 F Pulse Rate 56 L 56 L 55 L Respiratory Rate 18 18 Blood Pressure 105/67 105/67 Pulse Oximetry 95 Oxygen Delivery Fraction of Inspired Oxygen 01/31/25 07:22 01/31/25 07:23 01/31/25 07:26 Temperature Pulse Rate 55 L 55 L Respiratory Rate 18 18 Blood Pressure Pulse Oximetry 96 Oxygen Delivery Fraction of Inspired Oxygen 01/31/25 07:26 01/31/25 07:28 01/31/25 07:47 Temperature Pulse Rate 55 L 56 L 61 Respiratory Rate 16 17 Blood Pressure Pulse Oximetry 95 Oxygen Delivery Mechanical Ventilation Fraction of Inspired Oxygen 35 01/31/25 08:00 Temperature 98.1 F Pulse Rate 62 Respiratory Rate 18 Blood Pressure 95/59 L Pulse Oximetry 93 Oxygen Delivery Fraction of Inspired Oxygen Intake/Output Intake/Output: Intake & Output 01/28/25 01/29/25 01/30/25 01/31/25 23:59 23:59 23:59 23:59 Intake Total 3430.1 4819.6 1964.4 240.7 Output Total 9583 032 2958 800 Balance 2405.1 3894.6 -935.6 -559.3 Meds/Results Medications: Active Medications Generic Name Dose Route Start Last Admin Trade Name Freq PRN Reason Stop Dose Admin Albuterol/Ipratropium 3 ml 01/30/25 14:00 01/31/25 07:23 Ipratropium 0.5 Mg/Albuterol Sulfate 2.5 Mg Ampul.Neb 3 Ml INHALATION 3 ml Q6HRT TATYANA Administration Octreotide Acetate 500 mcg/ 100 mls @ 10 mls/hr 01/27/25 22:00 01/31/25 06:55 Sodium Chloride IV CONT 50 mcg/hr .Q10H TATYANA 10 mls/hr Administration 50 MCG/HR Ceftriaxone Sodium 2 gm/ 50 mls @ 100 mls/hr 01/28/25 09:00 01/31/25 08:00 Sodium Chloride IVPB 100 mls/hr Q24H TATYANA Administration Dexmedetomidine HCl 400 mcg in 100 mls @ 0 mls/hr 01/30/25 10:30 01/31/25 07:47 Precedex 400 Mcg/100 Ml IV CONT 0 mcg/kg/hr .Q0M TATYANA 0 mls/hr Titration Protocol Norepinephrine Bitartrate 8 mg in 250 mls @ 0 mls/hr 01/30/25 11:50 01/31/25 06:00 Levophed 8 Mg/D5w 250 Ml IV CONT 0 mcg/min .Q0M TATYANA 0 mls/hr Titration Protocol 0 MCG/MIN Lactulose 20 gm 01/29/25 09:00 01/30/25 16:13 Lactulose 20 Gm/30 Ml Udc PO 01/31/25 08:59 Not Given TID TATYANA Multi-Ingred Cream/Lotion/Oil/Oint 1 applic 01/28/25 09:15 01/31/25 08:00 Mineral Oil/White Petrolatum Ointment EACH EYE 1 applic Q12HR TATYANA Administration Ondansetron HCl 4 mg 01/28/25 01:51 Ondansetron Inj 4 Mg/2 Ml Vial IV PUSH Q4H PRN Nausea Rifaximin 550 mg 01/30/25 10:00 01/30/25 20:39 Rifaximin 550 Mg Tablet PO Not Given Q12HR TATYANA Sodium Chloride 10 ml 01/28/25 14:00 01/31/25 06:56 Central Line Flush IV PUSH 10 ml Q8HR TATYANA Administration Sodium Chloride 20 ml 01/28/25 06:37 Central Line Flush IV PUSH PRN PRN after blood draws Radiology Results: ITS Impressions Abdomen/Pelvis CTA 01/28/25 00:08 IMPRESSION: Findings within the liver for which malignancy is suspected. Additional findings within the rectum for which acute hemorrhage is suspected (likely secondary to anorectal varices). No findings to suggest upper GI bleeding. 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 Incidental notation is made of cholelithiasis. Head CT 01/28/25 11:51 Impression: No significant abnormality seen. Abdomen X-Ray 01/28/25 13:57 IMPRESSION: 1. Nasogastric tube in stomach. Chest X-Ray 01/31/25 06:36 IMPRESSION: 1. Unchanged opacities in the bilateral lower lung zones, left greater right which could represent atelectasis and/or pneumonia. 2. Small left pleural effusion. Labs Labs: Laboratory Results - last 24 hr 01/27/25 01/30/25 01/30/25 21:44 07:53 11:49 WBC 9.6 RBC 2.29 L Hgb 7.9 L Hct 23.6 L MCV 103.1 H MCH 34.5 H MCHC 33.5 RDW 20.6 H Plt Count 104 L MPV 10.2 Immature Gran % (Auto) Neut % (Auto) Lymph % (Auto) Falls % (Auto) Eos % (Auto) Baso % (Auto) Lymph # (Auto) Falls # (Auto) Eos # (Auto) Baso # (Auto) Abs Immat Gran (auto) Absolute Neuts (auto) Absolute Nucleated RBC Nucleated RBC % % Immature Plt Fraction 3.5 PT 18.7 H INR 1.6 APTT 28.3 Fibrinogen 175 L D-Dimer 3.27 H Puncture Site ABG pH ABG pCO2 ABG pO2 ABG PO2/FiO2 Ratio ABG HCO3 ABG O2 Saturation ABG O2 Content ABG Base Excess A-a Gradient Oxyhemoglobin Total Hemoglobin O2 Delivery Device O2 Liters/Min Minute Volume Vent Rate Vent Mode FiO2 Tidal Volume PEEP Peak Inspir Pressure Pressure Support Sodium Potassium Chloride Carbon Dioxide Anion Gap BUN Creatinine Estim Creat Clear Calc Estimated GFR Glucose POC Capillary Glucose Lactic Acid Calcium Phosphorus Magnesium 1.9 Total Bilirubin AST ALT Alkaline Phosphatase Ammonia 53 H C-Reactive Protein Total Protein Albumin Blood Type A Positive Antibody Screen Negative Crossmatch See Detail 01/30/25 01/30/25 01/31/25 12:04 18:09 00:07 WBC RBC Hgb Hct MCV MCH MCHC RDW Plt Count MPV Immature Gran % (Auto) Neut % (Auto) Lymph % (Auto) Falls % (Auto) Eos % (Auto) Baso % (Auto) Lymph # (Auto) Falls # (Auto) Eos # (Auto) Baso # (Auto) Abs Immat Gran (auto) Absolute Neuts (auto) Absolute Nucleated RBC Nucleated RBC % % Immature Plt Fraction PT INR APTT Fibrinogen D-Dimer Puncture Site ABG pH ABG pCO2 ABG pO2 ABG PO2/FiO2 Ratio ABG HCO3 ABG O2 Saturation ABG O2 Content ABG Base Excess A-a Gradient Oxyhemoglobin Total Hemoglobin O2 Delivery Device O2 Liters/Min Minute Volume Vent Rate Vent Mode FiO2 Tidal Volume PEEP Peak Inspir Pressure Pressure Support Sodium Potassium Chloride Carbon Dioxide Anion Gap BUN Creatinine Estim Creat Clear Calc Estimated GFR Glucose POC Capillary Glucose 131 H 159 H 149 H Lactic Acid Calcium Phosphorus Magnesium Total Bilirubin AST ALT Alkaline Phosphatase Ammonia C-Reactive Protein Total Protein Albumin Blood Type Antibody Screen Crossmatch 01/31/25 01/31/25 04:56 04:58 WBC 8.3 RBC 2.89 L Hgb 9.7 L Hct 28.2 L MCV 97.6 MCH 33.6 MCHC 34.4 RDW 21.5 H Plt Count 100 L MPV 10.5 H Immature Gran % (Auto) 1.2 H Neut % (Auto) 73.0 Lymph % (Auto) 14.3 L Falls % (Auto) 10.4 H Eos % (Auto) 0.7 Baso % (Auto) 0.4 Lymph # (Auto) 1.18 Falls # (Auto) 0.9 H Eos # (Auto) 0.1 Baso # (Auto) 0.0 Abs Immat Gran (auto) 0.10 H Absolute Neuts (auto) 6.0 Absolute Nucleated RBC 0.090 H Nucleated RBC % 1.1 H % Immature Plt Fraction 3.2 PT 17.9 H INR 1.5 APTT Fibrinogen D-Dimer Puncture Site Artline ABG pH 7.479 H ABG pCO2 33.7 L ABG pO2 85.1 ABG PO2/FiO2 Ratio 2.43 ABG HCO3 24.5 ABG O2 Saturation 97.1 ABG O2 Content 13.7 L ABG Base Excess 1.2 A-a Gradient 125.3 Oxyhemoglobin 96.0 Total Hemoglobin 10.1 L O2 Delivery Device Ventilator O2 Liters/Min Not Reportable Minute Volume Not Reportable Vent Rate 18 Vent Mode Cmv FiO2 35 Tidal Volume 400 PEEP 8 Peak Inspir Pressure Not Reportable Pressure Support Not Reportable Sodium 139 Potassium 4.3 Chloride 108 H Carbon Dioxide 23 Anion Gap 8 BUN 63 H Creatinine 1.15 H Estim Creat Clear Calc 74 Estimated GFR 48 L Glucose 138 H POC Capillary Glucose Lactic Acid 1.4 Calcium 9.5 Phosphorus 3.2 Magnesium 2.0 Total Bilirubin 2.8 H AST 222 H ALT 67 H Alkaline Phosphatase 73 Ammonia 56 H C-Reactive Protein 8.3 H Total Protein 6.5 Albumin 3.2 L Blood Type Antibody Screen Crossmatch Quality VTE Prophylaxis VTE prophylaxis: mechanical ordered
[2025-01-31] MEDS: LACTULOSE ENEMA 200 GM/1,000 ML ENEMA RECTAL (10:44)
[2025-01-31] MEDS: METOCLOPRAMIDE HCL INJ 10 MG/2 ML VIAL IV PUSH (10:44)
--- NOTE | 2025-01-31 10:48 | P.PNGI_ITS ---
Progress Note: A&P Assessment and Plan (1) Esophageal varices: Qualifiers: Esophageal varices bleeding: with bleeding Esophageal varices type: unspecified type Qualified Code(s): I85.01 - Esophageal varices with bleeding Code(s): I85.00 - Esophageal varices without bleeding Status: Acute Assessment and Plan: The patient continues intubated and sedated. Hemodynamically stable, off pressors, hemoglobin increased appropriately after transfusion, today 9.7. Still having expected melena from prior bleed. Will continue octreotide, ceftriaxone and ICU care. prognosis is poor given the multifocal hepatocellular carcinoma diagnosed by CT and AFP levels > 80,000. Subjective Date/time seen: 01/31/25 10:48 Objective Data Vital Signs Vital Signs: Vital Signs - 24 hr 01/30/25 11:10 01/30/25 11:29 01/30/25 11:53 Temperature Pulse Rate 77 72 70 Respiratory Rate 17 Blood Pressure 75/40 L Pulse Oximetry 99 Oxygen Delivery Mechanical Ventilation Fraction of Inspired Oxygen 40 01/30/25 12:00 01/30/25 12:00 01/30/25 12:00 Temperature Pulse Rate 70 70 70 Respiratory Rate 16 16 Blood Pressure 75/40 L Pulse Oximetry Oxygen Delivery Fraction of Inspired Oxygen 01/30/25 12:00 01/30/25 12:00 01/30/25 12:00 Temperature 98.1 F Pulse Rate 70 70 72 Respiratory Rate 16 16 16 Blood Pressure 75/40 L Pulse Oximetry 93 92 Oxygen Delivery Mechanical Ventilation Fraction of Inspired Oxygen 40 01/30/25 12:00 01/30/25 12:00 01/30/25 12:09 Temperature Pulse Rate 75 76 Respiratory Rate Blood Pressure 131/64 Pulse Oximetry Oxygen Delivery Fraction of Inspired Oxygen 40 01/30/25 12:12 01/30/25 12:17 01/30/25 13:38 Temperature Pulse Rate 76 75 70 Respiratory Rate 16 Blood Pressure 132/64 Pulse Oximetry 95 Oxygen Delivery Mechanical Ventilation Fraction of Inspired Oxygen 40 01/30/25 13:43 01/30/25 13:44 01/30/25 14:00 Temperature 97.8 F Pulse Rate 72 71 82 Respiratory Rate 17 18 Blood Pressure 104/77 119/92 H Pulse Oximetry 95 Oxygen Delivery Fraction of Inspired Oxygen 01/30/25 14:00 01/30/25 14:00 01/30/25 14:00 Temperature Pulse Rate 72 70 70 Respiratory Rate 18 Blood Pressure 89/72 L Pulse Oximetry Oxygen Delivery Fraction of Inspired Oxygen 01/30/25 14:00 01/30/25 14:00 01/30/25 14:27 Temperature 98.0 F Pulse Rate 70 70 70 Respiratory Rate 18 18 18 Blood Pressure 126/65 Pulse Oximetry 93 Oxygen Delivery Fraction of Inspired Oxygen 01/30/25 14:35 01/30/25 14:37 01/30/25 14:49 Temperature 98 F 98 F 98 F Pulse Rate 70 69 70 Respiratory Rate 18 18 18 Blood Pressure 128/66 128/66 129/67 Pulse Oximetry 93 93 94 Oxygen Delivery Fraction of Inspired Oxygen 01/30/25 14:51 01/30/25 14:59 01/30/25 15:14 Temperature 98 F 97.9 F Pulse Rate 70 67 67 Respiratory Rate 18 18 Blood Pressure 127/65 111/60 117/62 Pulse Oximetry 94 94 Oxygen Delivery Fraction of Inspired Oxygen 01/30/25 15:30 01/30/25 15:30 01/30/25 15:45 Temperature Pulse Rate 66 68 67 Respiratory Rate 16 16 Blood Pressure Pulse Oximetry 95 Oxygen Delivery Mechanical Ventilation Fraction of Inspired Oxygen 40 01/30/25 16:00 01/30/25 16:00 01/30/25 16:00 Temperature 97.8 F Pulse Rate 71 72 71 Respiratory Rate 17 18 Blood Pressure 123/76 Pulse Oximetry 95 95 Oxygen Delivery Mechanical Ventilation Fraction of Inspired Oxygen 40 01/30/25 16:00 01/30/25 16:00 01/30/25 16:00 Temperature Pulse Rate 66 66 Respiratory Rate 18 Blood Pressure 99/56 L Pulse Oximetry Oxygen Delivery Fraction of Inspired Oxygen 40 01/30/25 16:00 01/30/25 16:00 01/30/25 16:14 Temperature 97.8 F Pulse Rate 66 66 73 Respiratory Rate 18 18 18 Blood Pressure 117/62 Pulse Oximetry 95 Oxygen Delivery Fraction of Inspired Oxygen 01/30/25 16:39 01/30/25 16:39 01/30/25 17:09 Temperature Pulse Rate 70 70 70 Respiratory Rate 18 18 Blood Pressure 127/67 Pulse Oximetry Oxygen Delivery Fraction of Inspired Oxygen 01/30/25 17:14 01/30/25 17:50 01/30/25 17:53 Temperature 97.6 F Pulse Rate 68 65 65 Respiratory Rate 18 Blood Pressure 112/61 90/51 L 90/51 L Pulse Oximetry 94 Oxygen Delivery Fraction of Inspired Oxygen 01/30/25 18:00 01/30/25 18:00 01/30/25 18:00 Temperature 97.5 F L Pulse Rate 65 65 65 Respiratory Rate 22 H 23 H Blood Pressure 94/58 L Pulse Oximetry 92 Oxygen Delivery Fraction of Inspired Oxygen 01/30/25 18:00 01/30/25 18:00 01/30/25 18:00 Temperature Pulse Rate 65 65 65 Respiratory Rate 23 H 23 H Blood Pressure 93/57 L Pulse Oximetry Oxygen Delivery Fraction of Inspired Oxygen 01/30/25 18:09 01/30/25 18:15 01/30/25 20:00 Temperature Pulse Rate 69 59 L Respiratory Rate Blood Pressure 139/82 Pulse Oximetry 94 Oxygen Delivery Mechanical Ventilation Mechanical Ventilation Fraction of Inspired Oxygen 40 40 01/30/25 20:00 01/30/25 20:00 01/30/25 20:00 Temperature 97.5 F L Pulse Rate 61 60 60 Respiratory Rate 18 18 18 Blood Pressure 101/65 Pulse Oximetry 95 Oxygen Delivery Fraction of Inspired Oxygen 01/30/25 20:00 01/30/25 20:00 01/30/25 20:00 Temperature Pulse Rate 60 60 60 Respiratory Rate 18 Blood Pressure 102/71 Pulse Oximetry Oxygen Delivery Fraction of Inspired Oxygen 01/30/25 20:00 01/30/25 20:00 01/30/25 20:06 Temperature Pulse Rate 60 59 L Respiratory Rate 18 18 Blood Pressure Pulse Oximetry 96 Oxygen Delivery Mechanical Ventilation Fraction of Inspired Oxygen 40 40 01/30/25 20:16 01/30/25 22:00 01/30/25 22:00 Temperature 97.9 F Pulse Rate 60 62 63 Respiratory Rate 18 18 18 Blood Pressure 102/64 Pulse Oximetry 95 Oxygen Delivery Fraction of Inspired Oxygen 01/30/25 22:00 01/30/25 22:00 01/30/25 22:00 Temperature Pulse Rate 63 63 63 Respiratory Rate 18 18 Blood Pressure 96/56 L Pulse Oximetry Oxygen Delivery Fraction of Inspired Oxygen 01/30/25 22:00 01/30/25 22:52 01/30/25 22:52 Temperature Pulse Rate 63 59 L 59 L Respiratory Rate 18 18 Blood Pressure Pulse Oximetry Oxygen Delivery Fraction of Inspired Oxygen 01/30/25 23:15 01/31/25 00:00 01/31/25 00:00 Temperature Pulse Rate 58 L 56 L Respiratory Rate 18 Blood Pressure Pulse Oximetry 95 Oxygen Delivery Mechanical Ventilation Fraction of Inspired Oxygen 40 40 01/31/25 00:00 01/31/25 00:00 01/31/25 00:00 Temperature Pulse Rate 56 L 56 L 56 L Respiratory Rate 18 18 Blood Pressure 101/65 Pulse Oximetry Oxygen Delivery Fraction of Inspired Oxygen 01/31/25 00:00 01/31/25 00:00 01/31/25 00:00 Temperature 97.8 F Pulse Rate 56 L 56 L 60 Respiratory Rate 18 18 Blood Pressure 101/65 Pulse Oximetry 93 96 Oxygen Delivery Mechanical Ventilation Fraction of Inspired Oxygen 40 01/31/25 02:00 01/31/25 02:00 01/31/25 02:00 Temperature 97.8 F Pulse Rate 53 L 54 L 55 L Respiratory Rate 18 Blood Pressure 102/63 Pulse Oximetry 96 95 Oxygen Delivery Mechanical Ventilation Fraction of Inspired Oxygen 40 01/31/25 02:00 01/31/25 02:00 01/31/25 02:00 Temperature Pulse Rate 55 L 55 L 55 L Respiratory Rate 18 18 18 Blood Pressure Pulse Oximetry Oxygen Delivery Fraction of Inspired Oxygen 01/31/25 02:00 01/31/25 02:04 01/31/25 02:12 Temperature Pulse Rate 55 L 53 L 55 L Respiratory Rate 18 18 Blood Pressure 99/65 L Pulse Oximetry Oxygen Delivery Fraction of Inspired Oxygen 01/31/25 04:00 01/31/25 04:00 01/31/25 04:00 Temperature 98.0 F Pulse Rate 56 L 56 L 56 L Respiratory Rate 18 18 18 Blood Pressure 103/64 Pulse Oximetry 96 Oxygen Delivery Fraction of Inspired Oxygen 01/31/25 04:00 01/31/25 04:00 01/31/25 04:00 Temperature Pulse Rate 56 L 56 L 5 L Respiratory Rate 18 Blood Pressure 99/53 L Pulse Oximetry Oxygen Delivery Fraction of Inspired Oxygen 01/31/25 04:00 01/31/25 04:00 01/31/25 05:03 Temperature Pulse Rate 56 L 56 L Respiratory Rate 18 Blood Pressure Pulse Oximetry 96 95 Oxygen Delivery Mechanical Ventilation Mechanical Ventilation Fraction of Inspired Oxygen 40 40 35 01/31/25 05:04 01/31/25 05:04 01/31/25 06:00 Temperature Pulse Rate 55 L 55 L 57 L Respiratory Rate 18 18 18 Blood Pressure Pulse Oximetry Oxygen Delivery Fraction of Inspired Oxygen 01/31/25 06:00 01/31/25 06:00 01/31/25 06:00 Temperature Pulse Rate 56 L 56 L 56 L Respiratory Rate 18 18 Blood Pressure 105/67 Pulse Oximetry Oxygen Delivery Fraction of Inspired Oxygen 01/31/25 06:00 01/31/25 07:17 01/31/25 07:22 Temperature 98.1 F Pulse Rate 56 L 55 L 55 L Respiratory Rate 18 18 18 Blood Pressure 105/67 Pulse Oximetry 95 Oxygen Delivery Fraction of Inspired Oxygen 01/31/25 07:23 01/31/25 07:26 01/31/25 07:26 Temperature Pulse Rate 55 L 55 L Respiratory Rate 18 16 Blood Pressure Pulse Oximetry 96 Oxygen Delivery Fraction of Inspired Oxygen 01/31/25 07:28 01/31/25 07:35 01/31/25 07:47 Temperature Pulse Rate 56 L 56 L 61 Respiratory Rate 16 17 Blood Pressure Pulse Oximetry 95 Oxygen Delivery Mechanical Ventilation Fraction of Inspired Oxygen 35 01/31/25 08:00 01/31/25 08:00 01/31/25 08:00 Temperature 98.1 F Pulse Rate 62 62 Respiratory Rate 18 Blood Pressure 95/59 L Pulse Oximetry 93 Oxygen Delivery Fraction of Inspired Oxygen 35 01/31/25 08:00 01/31/25 10:00 01/31/25 10:00 Temperature 97.7 F Pulse Rate 57 L 57 L 58 L Respiratory Rate 21 H 20 Blood Pressure 106/89 Pulse Oximetry 95 94 Oxygen Delivery Mechanical Ventilation Fraction of Inspired Oxygen 35 01/31/25 10:21 Temperature Pulse Rate 57 L Respiratory Rate Blood Pressure Pulse Oximetry 94 Oxygen Delivery Mechanical Ventilation Fraction of Inspired Oxygen 35 Intake/Output Intake/Output: Intake & Output 01/28/25 01/29/25 01/30/25 01/31/25 23:59 23:59 23:59 23:59 Intake Total 3430.1 4819.6 1964.4 240.7 Output Total 8571 855 7030 800 Balance 2405.1 3894.6 -935.6 -559.3 Meds/Results Medications: Active Medications Generic Name Dose Route Start Last Admin Trade Name Freq PRN Reason Stop Dose Admin Albuterol/Ipratropium 3 ml 01/30/25 14:00 01/31/25 07:23 Ipratropium 0.5 Mg/Albuterol Sulfate 2.5 Mg Ampul.Neb 3 Ml INHALATION 3 ml Q6HRT TATYANA Administration Octreotide Acetate 500 mcg/ 100 mls @ 10 mls/hr 01/27/25 22:00 01/31/25 06:55 Sodium Chloride IV CONT 50 mcg/hr .Q10H TATYANA 10 mls/hr Administration 50 MCG/HR Ceftriaxone Sodium 2 gm/ 50 mls @ 100 mls/hr 01/28/25 09:00 01/31/25 08:00 Sodium Chloride IVPB 100 mls/hr Q24H TATYANA Administration Dexmedetomidine HCl 400 mcg in 100 mls @ 0 mls/hr 01/30/25 10:30 01/31/25 07:47 Precedex 400 Mcg/100 Ml IV CONT 0 mcg/kg/hr .Q0M TATYANA 0 mls/hr Titration Protocol Norepinephrine Bitartrate 8 mg in 250 mls @ 0 mls/hr 01/30/25 11:50 01/31/25 06:00 Levophed 8 Mg/D5w 250 Ml IV CONT 0 mcg/min .Q0M TATYANA 0 mls/hr Titration Protocol 0 MCG/MIN Lactulose 200 gm 01/31/25 09:00 Lactulose Enema 200 Gm/1,000 Ml Enema RECTAL DAILY TATYANA Multi-Ingred Cream/Lotion/Oil/Oint 1 applic 01/28/25 09:15 01/31/25 08:00 Mineral Oil/White Petrolatum Ointment EACH EYE 1 applic Q12HR TATYANA Administration Ondansetron HCl 4 mg 01/28/25 01:51 Ondansetron Inj 4 Mg/2 Ml Vial IV PUSH Q4H PRN Nausea Rifaximin 550 mg 01/30/25 10:00 01/31/25 09:29 Rifaximin 550 Mg Tablet PO Not Given Q12HR TATYANA Sodium Chloride 10 ml 01/28/25 14:00 01/31/25 06:56 Central Line Flush IV PUSH 10 ml Q8HR TATYANA Administration Sodium Chloride 20 ml 01/28/25 06:37 Central Line Flush IV PUSH PRN PRN after blood draws Radiology Results: ITS Impressions Abdomen/Pelvis CTA 01/28/25 00:08 IMPRESSION: Findings within the liver for which malignancy is suspected. Additional findings within the rectum for which acute hemorrhage is suspected (likely secondary to anorectal varices). No findings to suggest upper GI bleeding. 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 Incidental notation is made of cholelithiasis. Head CT 01/28/25 11:51 Impression: No significant abnormality seen. Abdomen X-Ray 01/28/25 13:57 IMPRESSION: 1. Nasogastric tube in stomach. Chest X-Ray 01/31/25 06:36 IMPRESSION: 1. Unchanged opacities in the bilateral lower lung zones, left greater right which could represent atelectasis and/or pneumonia. 2. Small left pleural effusion. Labs Labs: Laboratory Results - last 24 hr 01/27/25 01/30/25 01/30/25 21:44 11:49 12:04 WBC 9.6 RBC 2.29 L Hgb 7.9 L Hct 23.6 L MCV 103.1 H MCH 34.5 H MCHC 33.5 RDW 20.6 H Plt Count 104 L MPV 10.2 Immature Gran % (Auto) Neut % (Auto) Lymph % (Auto) [place] % (Auto) Eos % (Auto) Baso % (Auto) Lymph # (Auto) [place] # (Auto) Eos # (Auto) Baso # (Auto) Abs Immat Gran (auto) Absolute Neuts (auto) Absolute Nucleated RBC Nucleated RBC % % Immature Plt Fraction 3.5 PT 18.7 H INR 1.6 APTT 28.3 Fibrinogen 175 L D-Dimer 3.27 H Puncture Site ABG pH ABG pCO2 ABG pO2 ABG PO2/FiO2 Ratio ABG HCO3 ABG O2 Saturation ABG O2 Content ABG Base Excess A-a Gradient Oxyhemoglobin Total Hemoglobin O2 Delivery Device O2 Liters/Min Minute Volume Vent Rate Vent Mode FiO2 Tidal Volume PEEP Peak Inspir Pressure Pressure Support Sodium Potassium Chloride Carbon Dioxide Anion Gap BUN Creatinine Estim Creat Clear Calc Estimated GFR Glucose POC Capillary Glucose 131 H Lactic Acid Calcium Phosphorus Magnesium 1.9 Total Bilirubin AST ALT Alkaline Phosphatase Ammonia C-Reactive Protein Total Protein Albumin Blood Type A Positive Antibody Screen Negative Crossmatch See Detail 01/30/25 01/31/25 01/31/25 18:09 00:07 04:56 WBC RBC Hgb Hct MCV MCH MCHC RDW Plt Count MPV Immature Gran % (Auto) Neut % (Auto) Lymph % (Auto) [place] % (Auto) Eos % (Auto) Baso % (Auto) Lymph # (Auto) [place] # (Auto) Eos # (Auto) Baso # (Auto) Abs Immat Gran (auto) Absolute Neuts (auto) Absolute Nucleated RBC Nucleated RBC % % Immature Plt Fraction PT INR APTT Fibrinogen D-Dimer Puncture Site Artline ABG pH 7.479 H ABG pCO2 33.7 L ABG pO2 85.1 ABG PO2/FiO2 Ratio 2.43 ABG HCO3 24.5 ABG O2 Saturation 97.1 ABG O2 Content 13.7 L ABG Base Excess 1.2 A-a Gradient 125.3 Oxyhemoglobin 96.0 Total Hemoglobin 10.1 L O2 Delivery Device Ventilator O2 Liters/Min Not Reportable Minute Volume Not Reportable Vent Rate 18 Vent Mode Cmv FiO2 35 Tidal Volume 400 PEEP 8 Peak Inspir Pressure Not Reportable Pressure Support Not Reportable Sodium Potassium Chloride Carbon Dioxide Anion Gap BUN Creatinine Estim Creat Clear Calc Estimated GFR Glucose POC Capillary Glucose 159 H 149 H Lactic Acid Calcium Phosphorus Magnesium Total Bilirubin AST ALT Alkaline Phosphatase Ammonia C-Reactive Protein Total Protein Albumin Blood Type Antibody Screen Crossmatch 01/31/25 04:58 WBC 8.3 RBC 2.89 L Hgb 9.7 L Hct 28.2 L MCV 97.6 MCH 33.6 MCHC 34.4 RDW 21.5 H Plt Count 100 L MPV 10.5 H Immature Gran % (Auto) 1.2 H Neut % (Auto) 73.0 Lymph % (Auto) 14.3 L [place] % (Auto) 10.4 H Eos % (Auto) 0.7 Baso % (Auto) 0.4 Lymph # (Auto) 1.18 [place] # (Auto) 0.9 H Eos # (Auto) 0.1 Baso # (Auto) 0.0 Abs Immat Gran (auto) 0.10 H Absolute Neuts (auto) 6.0 Absolute Nucleated RBC 0.090 H Nucleated RBC % 1.1 H % Immature Plt Fraction 3.2 PT 17.9 H INR 1.5 APTT Fibrinogen D-Dimer Puncture Site ABG pH ABG pCO2 ABG pO2 ABG PO2/FiO2 Ratio ABG HCO3 ABG O2 Saturation ABG O2 Content ABG Base Excess A-a Gradient Oxyhemoglobin Total Hemoglobin O2 Delivery Device O2 Liters/Min Minute Volume Vent Rate Vent Mode FiO2 Tidal Volume PEEP Peak Inspir Pressure Pressure Support Sodium 139 Potassium 4.3 Chloride 108 H Carbon Dioxide 23 Anion Gap 8 BUN 63 H Creatinine 1.15 H Estim Creat Clear Calc 74 Estimated GFR 48 L Glucose 138 H POC Capillary Glucose Lactic Acid 1.4 Calcium 9.5 Phosphorus 3.2 Magnesium 2.0 Total Bilirubin 2.8 H AST 222 H ALT 67 H Alkaline Phosphatase 73 Ammonia 56 H C-Reactive Protein 8.3 H Total Protein 6.5 Albumin 3.2 L Blood Type Antibody Screen Crossmatch
--- NOTE | 2025-01-31 13:06 | P.PNIM_ITS ---
Progress Note: A&P Assessment and Plan (1) Hemorrhagic shock: Code(s): R57.8 - Other shock Status: Acute Assessment and Plan: Pt presented with rectal bleed, CT showed esophageal and rectal varices. -Transfused 2 units unmatched PRBC in the ER -hemoglobin this morning is 9.3, platelets 186 -01/28: INR 1.6, will give vitamin K -01/28: Transfused 1 unit of FFP and 1 unit of packed RBC -01/30: 1 unit of FFP and 1 unit of packed RBCs were transfused -patient adequately fluid-resuscitated -OFF pressors at this, maintain MAP > 65 mmHg or SBP > 100 mmHg for adequate end organ perfusion -01/29: Hb 7.3, INR 1.8 this morning. Transfused 1 unit of FFP and 1 unit of packed RBC, will also repeat vitamin K IVPB -01/30: Hemoglobin remained stable, decreased NG output. Discussed with GI, will continue octreotide. Discontinued Protonix infusion and IV Protonix -01/31: Hemoglobin is 9.7 this morning and stable, NG was removed 01/30 with EGD. Will continue octreotide per GI 01/28: CTA scan of the abdomen and pelvis: Findings within the liver for which malignancy is suspected. Additional findings within the rectum for which acute hemorrhage is suspected (likely secondary to anorectal varices). No findings to suggest upper GI bleeding. 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 Incidental notation is made of cholelithiasis. (2) Esophageal varices: Qualifiers: Esophageal varices bleeding: with bleeding Esophageal varices type: unspecified type Qualified Code(s): I85.01 - Esophageal varices with bleeding Code(s): I85.00 - Esophageal varices without bleeding Status: Acute Assessment and Plan: Esophageal varices as seen on CTA abdomen and pelvis. -appreciate GI evaluation -01/28: EGD: Showed actively bleeding gastric varix at the gastric cardia, a band ligation device was used to place 1 band, moderate gastritis was seen in the stomach. The gastric has a moderate portal hypertensive change. Large amount of blood was seen in the distal esophagus and the stomach the bowel and the 2nd portion of duodenum was normal with no ulcers or masses 01/30: Repeat EGD: Showed medium grade 3 varices (large varices almost occluding the esophageal lumen were present in the distal esophagus. There was no evidence of bleeding bleeding corresponding to the previous band. To more bands were placed. There was a large fundal pool of blood in the stomach. The bulb and the 2nd portion of duodenum was normal Appreciate GI following the patient, discussed with GI, will continue octreotide infusion per GI -NG tube with bloody drainage, has slowed down, drainage in the FMS has also slowed down (3) Rectal varices: Code(s): K64.9 - Unspecified hemorrhoids Status: Acute Assessment and Plan: Likely related to alcoholic cirrhosis, (4) Alcoholic cirrhosis of liver with ascites: Code(s): K70.31 - Alcoholic cirrhosis of liver with ascites Status: Acute Assessment and Plan: History of alcoholic cirrhosis -LFTs and bilirubin elevated but stable -could be related to shock liver, cirrhosis, bleeding -continue ceftriaxone (01/28) for SBP prophylaxis -continue to monitor LFTs and bilirubin -INR elevated, status post vitamin K and FFP, INR is stable at 1.5 -continue to monitor (5) Airway compromise: Code(s): J98.8 - Other specified respiratory disorders Status: Acute Assessment and Plan: Patient encephalopathic with elevated ammonia level, not protecting her airway, also intubated for aspiration prevention and for EGD -01/28: Intubated patient for airway protection due to encephalopathy -currently on CMV mode of ventilation, peep of 5 and 35% FiO2 -chest x-ray and ABGs reviewed, maintain O2 sats > 92% - -sedated with Precedex infusion, will have bedside RN. Precedex and try to wake up patient once more awake will place her on SBT (6) Acute kidney injury: Code(s): N17.9 - Acute kidney failure, unspecified Status: Acute Assessment and Plan: Acute kidney injury, likely related to hemorrhagic shock -low urine output, creatinine and BUN improving -off pressors, blood pressures remained stable, will allow higher MAP, for adequate end organ perfusion -continue to monitor urine output, renal function electrolytes (7) Encephalopathy: Code(s): G93.40 - Encephalopathy, unspecified Status: Acute Assessment and Plan: Likely related to hyperammonemia -continue lactulose, will switch to rectal lactulose due to discontinuation of NG tube with EGD on 01/30 -had started patient on rifaximin, now will have to hold since patient does not have an NG tube -continue to monitor ammonia level (8) Abnormal CT of liver: Code(s): R93.2 - Abnormal findings on diagnostic imaging of liver and biliary tract Status: Acute Assessment and Plan: CT abdomen and pelvis as above: Suspicious for malignancy -AFP significantly elevated to 83,546 (0.0-9.2) -GI is following the patient: Recommended may need MRI liver protocol when more stable and extubated Plan DVT prophylaxis: SCDs, no chemoprophylaxis due to hemorrhagic shock and GI bleed Stress ulcer prophylaxis: None at this time according to GI Nutrition: NPO Code Status: Full code Subjective Date/time seen: 01/31/25 13:06 Interval history: On SBT today Review of Systems Review of Systems: Review of systems unobtainable due to patient's confusion All systems reviewed & are unremarkable except as noted in HPI and below ROS unobtainable: Yes unobtainable due to endotracheal tube, unobtainable due to medical condition and unobtainable due to mental status Exam Narrative: General: Patient is intubated and sedated in no acute distress HEENT:? Pupils unequal, R>L, but reactive, sclera is icteric Neck:? supple Respiratory:? Coarse breath sounds bilaterally, decreased at bases, diffuse whee zing Cardiac:? S1 S2 normal, regular rate and rhythm Abdomen:? soft, nontender, non distended, morbidly obese, hypoactive bowel sounds Extremities:?b/l edema of lower extremities, palpable pedal pulses Neuro:? Patient is intubated, sedated, does not open eyes or follow simple commands. For withdraws to pain stimulus Skin:? Feet are warm today Psych:? unable to assess Const: Other: Morbidly obese, acutely ill-appearing, agitated and restless and difficult to redirect HENMT: Other: Head is normocephalic atraumatic, mucous membranes are tacky, crowded posterior oropharynx, right NG tube present with maroon drainage Eyes: Other: Pupils are equal and reactive, positive conjunctival pallor, mild scleral icterus noted Neck: Other: Large neck circumference, no lymphadenopathy, no JVD Resp: Other: Regular rate, regular rhythm, 2+ bilateral radial pedal pulses Cardio: Other: Sinus tachycardia, 2 no murmur, no JVD GI: Other: Distended, tense, no fluid wave, generalized discomfort on palpation : Other: Simon catheter in place with clear yellow urine Back/Spine/Pelvis: Other: Incontinent of melenic stool rectal tube in place but no stool within the fecal management system Skin: Other: Generalized pallor, non jaundice, chronic skin changes to bilateral lower extremities consistent with peripheral vascular disease and or venous stasis dermatitis Neuro: Other: Patient is alert oriented person it is unclear whether she realized that she is in the hospital or not she states she does not know the month or year and cannot tell me why she is in the hospital, she is moving all extremities equally and localizing to pain Extrem: Other: No cyanosis, no pitting edema, moves all extremities equally Psych: Other: Agitated, restless, difficult to redirect, poor judgment and insight Objective Data Vital Signs Vital Signs: Vital Signs - 24 hr 01/30/25 13:38 01/30/25 13:43 01/30/25 13:44 Temperature Pulse Rate 70 72 71 Respiratory Rate 17 Blood Pressure 104/77 Pulse Oximetry 95 Oxygen Delivery Mechanical Ventilation Fraction of Inspired Oxygen 40 01/30/25 14:00 01/30/25 14:00 01/30/25 14:00 Temperature 97.8 F Pulse Rate 82 72 70 Respiratory Rate 18 18 Blood Pressure 119/92 H Pulse Oximetry 95 Oxygen Delivery Fraction of Inspired Oxygen 01/30/25 14:00 01/30/25 14:00 01/30/25 14:00 Temperature Pulse Rate 70 70 70 Respiratory Rate 18 18 Blood Pressure 89/72 L Pulse Oximetry Oxygen Delivery Fraction of Inspired Oxygen 01/30/25 14:27 01/30/25 14:35 01/30/25 14:37 Temperature 98.0 F 98 F 98 F Pulse Rate 70 70 69 Respiratory Rate 18 18 18 Blood Pressure 126/65 128/66 128/66 Pulse Oximetry 93 93 93 Oxygen Delivery Fraction of Inspired Oxygen 01/30/25 14:49 01/30/25 14:51 01/30/25 14:59 Temperature 98 F 98 F Pulse Rate 70 70 67 Respiratory Rate 18 18 Blood Pressure 129/67 127/65 111/60 Pulse Oximetry 94 94 Oxygen Delivery Fraction of Inspired Oxygen 01/30/25 15:14 01/30/25 15:30 01/30/25 15:30 Temperature 97.9 F Pulse Rate 67 66 68 Respiratory Rate 18 16 Blood Pressure 117/62 Pulse Oximetry 94 95 Oxygen Delivery Mechanical Ventilation Fraction of Inspired Oxygen 40 01/30/25 15:45 01/30/25 16:00 01/30/25 16:00 Temperature 97.8 F Pulse Rate 67 71 72 Respiratory Rate 16 17 18 Blood Pressure 123/76 Pulse Oximetry 95 95 Oxygen Delivery Mechanical Ventilation Fraction of Inspired Oxygen 40 01/30/25 16:00 01/30/25 16:00 01/30/25 16:00 Temperature Pulse Rate 71 66 Respiratory Rate 18 Blood Pressure Pulse Oximetry Oxygen Delivery Fraction of Inspired Oxygen 40 01/30/25 16:00 01/30/25 16:00 01/30/25 16:00 Temperature Pulse Rate 66 66 66 Respiratory Rate 18 18 Blood Pressure 99/56 L Pulse Oximetry Oxygen Delivery Fraction of Inspired Oxygen 01/30/25 16:14 01/30/25 16:39 01/30/25 16:39 Temperature 97.8 F Pulse Rate 73 70 70 Respiratory Rate 18 18 18 Blood Pressure 117/62 Pulse Oximetry 95 Oxygen Delivery Fraction of Inspired Oxygen 01/30/25 17:09 01/30/25 17:14 01/30/25 17:50 Temperature 97.6 F Pulse Rate 70 68 65 Respiratory Rate 18 Blood Pressure 127/67 112/61 90/51 L Pulse Oximetry 94 Oxygen Delivery Fraction of Inspired Oxygen 01/30/25 17:53 01/30/25 18:00 01/30/25 18:00 Temperature 97.5 F L Pulse Rate 65 65 65 Respiratory Rate 22 H Blood Pressure 90/51 L 94/58 L Pulse Oximetry 92 Oxygen Delivery Fraction of Inspired Oxygen 01/30/25 18:00 01/30/25 18:00 01/30/25 18:00 Temperature Pulse Rate 65 65 65 Respiratory Rate 23 H 23 H Blood Pressure 93/57 L Pulse Oximetry Oxygen Delivery Fraction of Inspired Oxygen 01/30/25 18:00 01/30/25 18:09 01/30/25 18:15 Temperature Pulse Rate 65 69 Respiratory Rate 23 H Blood Pressure 139/82 Pulse Oximetry Oxygen Delivery Mechanical Ventilation Fraction of Inspired Oxygen 40 01/30/25 20:00 01/30/25 20:00 01/30/25 20:00 Temperature 97.5 F L Pulse Rate 59 L 61 60 Respiratory Rate 18 18 Blood Pressure 101/65 Pulse Oximetry 94 95 Oxygen Delivery Mechanical Ventilation Fraction of Inspired Oxygen 40 01/30/25 20:00 01/30/25 20:00 01/30/25 20:00 Temperature Pulse Rate 60 60 60 Respiratory Rate 18 18 Blood Pressure 102/71 Pulse Oximetry Oxygen Delivery Fraction of Inspired Oxygen 01/30/25 20:00 01/30/25 20:00 01/30/25 20:00 Temperature Pulse Rate 60 60 Respiratory Rate 18 Blood Pressure Pulse Oximetry 96 Oxygen Delivery Mechanical Ventilation Fraction of Inspired Oxygen 40 40 01/30/25 20:06 01/30/25 20:16 01/30/25 22:00 Temperature 97.9 F Pulse Rate 59 L 60 62 Respiratory Rate 18 18 18 Blood Pressure 102/64 Pulse Oximetry 95 Oxygen Delivery Fraction of Inspired Oxygen 01/30/25 22:00 01/30/25 22:00 01/30/25 22:00 Temperature Pulse Rate 63 63 63 Respiratory Rate 18 18 18 Blood Pressure Pulse Oximetry Oxygen Delivery Fraction of Inspired Oxygen 01/30/25 22:00 01/30/25 22:00 01/30/25 22:52 Temperature Pulse Rate 63 63 59 L Respiratory Rate 18 Blood Pressure 96/56 L Pulse Oximetry Oxygen Delivery Fraction of Inspired Oxygen 01/30/25 22:52 01/30/25 23:15 01/31/25 00:00 Temperature Pulse Rate 59 L 58 L Respiratory Rate 18 Blood Pressure Pulse Oximetry 95 Oxygen Delivery Mechanical Ventilation Fraction of Inspired Oxygen 40 40 01/31/25 00:00 01/31/25 00:00 01/31/25 00:00 Temperature Pulse Rate 56 L 56 L 56 L Respiratory Rate 18 18 18 Blood Pressure Pulse Oximetry Oxygen Delivery Fraction of Inspired Oxygen 01/31/25 00:00 01/31/25 00:00 01/31/25 00:00 Temperature 97.8 F Pulse Rate 56 L 56 L 56 L Respiratory Rate 18 Blood Pressure 101/65 101/65 Pulse Oximetry 93 Oxygen Delivery Fraction of Inspired Oxygen 01/31/25 00:00 01/31/25 02:00 01/31/25 02:00 Temperature 97.8 F Pulse Rate 60 53 L 54 L Respiratory Rate 18 18 Blood Pressure 102/63 Pulse Oximetry 96 96 95 Oxygen Delivery Mechanical Ventilation Mechanical Ventilation Fraction of Inspired Oxygen 40 40 01/31/25 02:00 01/31/25 02:00 01/31/25 02:00 Temperature Pulse Rate 55 L 55 L 55 L Respiratory Rate 18 18 Blood Pressure Pulse Oximetry Oxygen Delivery Fraction of Inspired Oxygen 01/31/25 02:00 01/31/25 02:00 01/31/25 02:04 Temperature Pulse Rate 55 L 55 L 53 L Respiratory Rate 18 18 Blood Pressure 99/65 L Pulse Oximetry Oxygen Delivery Fraction of Inspired Oxygen 01/31/25 02:12 01/31/25 04:00 01/31/25 04:00 Temperature 98.0 F Pulse Rate 55 L 56 L 56 L Respiratory Rate 18 18 18 Blood Pressure 103/64 Pulse Oximetry 96 Oxygen Delivery Fraction of Inspired Oxygen 01/31/25 04:00 01/31/25 04:00 01/31/25 04:00 Temperature Pulse Rate 56 L 56 L 56 L Respiratory Rate 18 18 Blood Pressure 99/53 L Pulse Oximetry Oxygen Delivery Fraction of Inspired Oxygen 01/31/25 04:00 01/31/25 04:00 01/31/25 04:00 Temperature Pulse Rate 5 L 56 L Respiratory Rate 18 Blood Pressure Pulse Oximetry 96 Oxygen Delivery Mechanical Ventilation Fraction of Inspired Oxygen 40 40 01/31/25 05:03 01/31/25 05:04 01/31/25 05:04 Temperature Pulse Rate 56 L 55 L 55 L Respiratory Rate 18 18 Blood Pressure Pulse Oximetry 95 Oxygen Delivery Mechanical Ventilation Fraction of Inspired Oxygen 35 01/31/25 06:00 01/31/25 06:00 01/31/25 06:00 Temperature Pulse Rate 57 L 56 L 56 L Respiratory Rate 18 18 18 Blood Pressure Pulse Oximetry Oxygen Delivery Fraction of Inspired Oxygen 01/31/25 06:00 01/31/25 06:00 01/31/25 07:17 Temperature 98.1 F Pulse Rate 56 L 56 L 55 L Respiratory Rate 18 18 Blood Pressure 105/67 105/67 Pulse Oximetry 95 Oxygen Delivery Fraction of Inspired Oxygen 01/31/25 07:22 01/31/25 07:23 01/31/25 07:26 Temperature Pulse Rate 55 L 55 L Respiratory Rate 18 18 Blood Pressure Pulse Oximetry 96 Oxygen Delivery Fraction of Inspired Oxygen 01/31/25 07:26 01/31/25 07:28 01/31/25 07:35 Temperature Pulse Rate 55 L 56 L 56 L Respiratory Rate 16 16 Blood Pressure Pulse Oximetry 95 Oxygen Delivery Mechanical Ventilation Fraction of Inspired Oxygen 35 01/31/25 07:47 01/31/25 08:00 01/31/25 08:00 Temperature 98.1 F Pulse Rate 61 62 62 Respiratory Rate 17 18 Blood Pressure 95/59 L Pulse Oximetry 93 Oxygen Delivery Fraction of Inspired Oxygen 01/31/25 08:00 01/31/25 08:00 01/31/25 08:00 Temperature Pulse Rate 57 L 58 L Respiratory Rate 21 H 18 Blood Pressure Pulse Oximetry 95 Oxygen Delivery Mechanical Ventilation Fraction of Inspired Oxygen 35 35 01/31/25 10:00 01/31/25 10:00 01/31/25 10:00 Temperature 97.7 F Pulse Rate 57 L 58 L 62 Respiratory Rate 20 20 Blood Pressure 106/89 Pulse Oximetry 94 Oxygen Delivery Fraction of Inspired Oxygen 01/31/25 10:21 01/31/25 12:00 01/31/25 12:00 Temperature 98.1 F Pulse Rate 57 L 63 59 L Respiratory Rate 15 20 Blood Pressure 94/57 L Pulse Oximetry 94 92 Oxygen Delivery Mechanical Ventilation Fraction of Inspired Oxygen 35 01/31/25 12:00 01/31/25 12:00 01/31/25 12:00 Temperature Pulse Rate 59 L 69 Respiratory Rate 15 Blood Pressure Pulse Oximetry 92 Oxygen Delivery Mechanical Ventilation Fraction of Inspired Oxygen 35 35 01/31/25 12:54 01/31/25 12:56 01/31/25 13:02 Temperature Pulse Rate 56 L 56 L 56 L Respiratory Rate 15 18 Blood Pressure Pulse Oximetry 92 Oxygen Delivery Mechanical Ventilation Fraction of Inspired Oxygen 35 Intake/Output Intake/Output: Intake & Output 01/28/25 01/29/25 01/30/25 01/31/25 23:59 23:59 23:59 23:59 Intake Total 3430.1 4819.6 1964.4 290.7 Output Total 8740 877 7627 800 Balance 2405.1 3894.6 -935.6 -509.3 Meds/Results Medications: Active Medications Generic Name Dose Route Start Last Admin Trade Name Freq PRN Reason Stop Dose Admin Albuterol/Ipratropium 3 ml 01/30/25 14:00 01/31/25 12:53 Ipratropium 0.5 Mg/Albuterol Sulfate 2.5 Mg Ampul.Neb 3 Ml INHALATION 3 ml Q6HRT TATYANA Administration Octreotide Acetate 500 mcg/ 100 mls @ 10 mls/hr 01/27/25 22:00 01/31/25 06:55 Sodium Chloride IV CONT 50 mcg/hr .Q10H TATYANA 10 mls/hr Administration 50 MCG/HR Ceftriaxone Sodium 2 gm/ 50 mls @ 100 mls/hr 01/28/25 09:00 01/31/25 09:30 Sodium Chloride IVPB Infused Q24H TATYANA Infusion Dexmedetomidine HCl 400 mcg in 100 mls @ 0 mls/hr 01/30/25 10:30 01/31/25 12:00 Precedex 400 Mcg/100 Ml IV CONT 0 mcg/kg/hr .Q0M TATYANA 0 mls/hr Titration Protocol Norepinephrine Bitartrate 8 mg in 250 mls @ 0 mls/hr 01/30/25 11:50 01/31/25 06:00 Levophed 8 Mg/D5w 250 Ml IV CONT 0 mcg/min .Q0M TATYANA 0 mls/hr Titration Protocol 0 MCG/MIN Lactulose 200 gm 01/31/25 09:00 01/31/25 10:44 Lactulose Enema 200 Gm/1,000 Ml Enema RECTAL 200 gm DAILY TATYANA Administration Multi-Ingred Cream/Lotion/Oil/Oint 1 applic 01/28/25 09:15 01/31/25 08:00 Mineral Oil/White Petrolatum Ointment EACH EYE 1 applic Q12HR TATYANA Administration Ondansetron HCl 4 mg 01/28/25 01:51 Ondansetron Inj 4 Mg/2 Ml Vial IV PUSH Q4H PRN Nausea Rifaximin 550 mg 01/30/25 10:00 01/31/25 09:29 Rifaximin 550 Mg Tablet PO Not Given Q12HR TATYANA Sodium Chloride 10 ml 01/28/25 14:00 01/31/25 06:56 Central Line Flush IV PUSH 10 ml Q8HR TATYANA Administration Sodium Chloride 20 ml 01/28/25 06:37 Central Line Flush IV PUSH PRN PRN after blood draws Radiology Results: ITS Impressions Abdomen/Pelvis CTA 01/28/25 00:08 IMPRESSION: Findings within the liver for which malignancy is suspected. Additional findings within the rectum for which acute hemorrhage is suspected (likely secondary to anorectal varices). No findings to suggest upper GI bleeding. 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 Incidental notation is made of cholelithiasis. Head CT 01/28/25 11:51 Impression: No significant abnormality seen. Abdomen X-Ray 01/28/25 13:57 IMPRESSION: 1. Nasogastric tube in stomach. Chest X-Ray 01/31/25 06:36 IMPRESSION: 1. Unchanged opacities in the bilateral lower lung zones, left greater right which could represent atelectasis and/or pneumonia. 2. Small left pleural effusion. Labs Labs: Laboratory Results - last 24 hr 01/27/25 01/30/25 01/31/25 21:44 18:09 00:07 WBC RBC Hgb Hct MCV MCH MCHC RDW Plt Count MPV Immature Gran % (Auto) Neut % (Auto) Lymph % (Auto) [place] % (Auto) Eos % (Auto) Baso % (Auto) Lymph # (Auto) [place] # (Auto) Eos # (Auto) Baso # (Auto) Abs Immat Gran (auto) Absolute Neuts (auto) Absolute Nucleated RBC Nucleated RBC % % Immature Plt Fraction PT INR Puncture Site ABG pH ABG pCO2 ABG pO2 ABG PO2/FiO2 Ratio ABG HCO3 ABG O2 Saturation ABG O2 Content ABG Base Excess A-a Gradient Oxyhemoglobin Total Hemoglobin O2 Delivery Device O2 Liters/Min Minute Volume Vent Rate Vent Mode FiO2 Tidal Volume PEEP Peak Inspir Pressure Pressure Support Sodium Potassium Chloride Carbon Dioxide Anion Gap BUN Creatinine Estim Creat Clear Calc Estimated GFR Glucose POC Capillary Glucose 159 H 149 H Lactic Acid Calcium Phosphorus Magnesium Total Bilirubin AST ALT Alkaline Phosphatase Ammonia C-Reactive Protein Total Protein Albumin Blood Type A Positive Antibody Screen Negative Crossmatch See Detail 01/31/25 01/31/25 01/31/25 04:56 04:58 11:13 WBC 8.3 RBC 2.89 L Hgb 9.7 L Hct 28.2 L MCV 97.6 MCH 33.6 MCHC 34.4 RDW 21.5 H Plt Count 100 L MPV 10.5 H Immature Gran % (Auto) 1.2 H Neut % (Auto) 73.0 Lymph % (Auto) 14.3 L [place] % (Auto) 10.4 H Eos % (Auto) 0.7 Baso % (Auto) 0.4 Lymph # (Auto) 1.18 [place] # (Auto) 0.9 H Eos # (Auto) 0.1 Baso # (Auto) 0.0 Abs Immat Gran (auto) 0.10 H Absolute Neuts (auto) 6.0 Absolute Nucleated RBC 0.090 H Nucleated RBC % 1.1 H % Immature Plt Fraction 3.2 PT 17.9 H INR 1.5 Puncture Site Artline ABG pH 7.479 H ABG pCO2 33.7 L ABG pO2 85.1 ABG PO2/FiO2 Ratio 2.43 ABG HCO3 24.5 ABG O2 Saturation 97.1 ABG O2 Content 13.7 L ABG Base Excess 1.2 A-a Gradient 125.3 Oxyhemoglobin 96.0 Total Hemoglobin 10.1 L O2 Delivery Device Ventilator O2 Liters/Min Not Reportable Minute Volume Not Reportable Vent Rate 18 Vent Mode Cmv FiO2 35 Tidal Volume 400 PEEP 8 Peak Inspir Pressure Not Reportable Pressure Support Not Reportable Sodium 139 Potassium 4.3 Chloride 108 H Carbon Dioxide 23 Anion Gap 8 BUN 63 H Creatinine 1.15 H Estim Creat Clear Calc 74 Estimated GFR 48 L Glucose 138 H POC Capillary Glucose 129 H Lactic Acid 1.4 Calcium 9.5 Phosphorus 3.2 Magnesium 2.0 Total Bilirubin 2.8 H AST 222 H ALT 67 H Alkaline Phosphatase 73 Ammonia 56 H C-Reactive Protein 8.3 H Total Protein 6.5 Albumin 3.2 L Blood Type Antibody Screen Crossmatch Quality VTE Prophylaxis VTE prophylaxis: mechanical ordered
[2025-02-01] VITALS (43 sets, daily range): BP systolic 99–123; BP diastolic 60–76; PULSE 55–76; RESP 14–45; TEMP 36.9–38.3; O2SAT 91–98
[2025-02-01] MEDS: IPRATROPIUM 0.5 MG/ALBUTEROL SULFATE 2.5 MG AMPUL.NEB 3 ML INHALATION ×4 (01:18→20:40)
[2025-02-01] MEDS: OCTREOTIDE ACETATE 500 MCG in SODIUM CHLORIDE 0.9% IV 99 ML 10 MCG IV CONT ×3 (02:50→23:41)
[2025-02-01] MEDS: dexmedeTOMIDine 400 MCG/100 ML 400 MCG/100 ML BAG 16.5 MCG IV CONT (04:57)
[2025-02-01] MEDS: CENTRAL LINE FLUSH 10 ML IV PUSH ×3 (04:58→21:01)
[2025-02-01 05:09] LABS: Alveolar/Arterial O2 Gradient 137.4 mmHg; Carboxyhemoglobin 0.8 % THb (0-2.0); Fractional Inspired Oxygen 35 %; HCO3 ABG 25.5 mEq/l (22.0-26.0); Methemoglobin ABG 0.3 %THb (0-1.5); Oxygen Content ABG 14.2 %vol (16.0-22.0); Oxygen Saturation ABG 94.7 % (95.0-100.0); PCO2 ABG 37.2 mmHg (35.0-45.0); PO2 ABG 68.9 mmHg (80.0-100.0); PO2 FiO2 Ratio Arterial Blood 1.97 %; Reduced Hemoglobin 6.5 %THb (0-5.0)
[2025-02-01 05:12] LABS: Modified Allen's Test Pass; Site Drawn LEFT RADIAL
[2025-02-01 05:13] LABS: Arterial Blood Gas Tidal Volume 400 ml; Arterial Blood Gas Ventilator rate 16 /MIN
[2025-02-01 05:39] LABS: Alanine Aminotransferase 57 U/L (6-35); Albumin Level 2.9 g/dL (3.5-5.1); Alkaline Phosphatase 79 U/L (38-126); Anion Gap 6 mmol/L (4-12); Aspartate Amino Transferase 196 U/L (14-36); Bilirubin,Total 3.6 mg/dL (0.2-1.3); Blood Urea Nitrogen 52 mg/dL (7-17); CRP 8.5 mg/dL (<1.0); Calcium 9.5 mg/dL (8.4-10.2); Carbon Dioxide 25 mmol/L (22-30); Chloride 111 mmol/L (98-107); Estimated CRCL calculation 80 ml/min; Estimated Glomerular Filt Rate 53; Glucose 125 mg/dL (65-110); Magnesium 1.9 mg/dL (1.6-2.3); Potassium 4.0 mmol/L (3.4-5.0); Sodium 142 mmol/L (137-145); Total Protein 6.2 g/dL (6.3-8.2)
[2025-02-01 05:40] LABS: INR 1.5; Prothrombin Time 18.1 Seconds (11.1-14.7)
[2025-02-01 07:27] LABS: Hematocrit 30.9 % (37.0-47.0); Hemoglobin 10.1 g/dL (12.0-15.0); Immature Platelet Fraction Pct 3.4 % (0.9-11.2); Mean Corpuscular HGB Conc 32.7 g/dl (32-36); Mean Corpuscular Hemoglobin 33.9 pg (26-34); Mean Corpuscular Volume 103.7 fl (80-100); Platelet Count Result 101 k/mm3 (150-375); Red Blood Count 2.98 M/mm3 (4.2-5.4); White Blood Count 8.1 K/mm3 (4.5-10.0)
[2025-02-01 07:45] LABS: Ammonia 10 umol/L (9-30)
[2025-02-01] MEDS: MINERAL OIL/WHITE PETROLATUM OINTMENT 1 APPLIC EACH EYE ×2 (08:28→21:01)
[2025-02-01] MEDS: cefTRIAXone 2 GM in SODIUM CHLORIDE 0.9% IV 100 ML 200 ML IVPB (09:20)
--- NOTE | 2025-02-01 09:40 | WPDINTPN ---
Progress Note: A&P Assessment and Plan (1) Hemorrhagic shock: Code(s): R57.8 - Other shock Status: Acute Assessment and Plan: Pt presented with rectal bleed, CT showed esophageal and rectal varices. -Transfused 2 units unmatched PRBC in the ER -hemoglobin this morning is 9.3, platelets 186 -01/28: INR 1.6, will give vitamin K -01/28: Transfused 1 unit of FFP and 1 unit of packed RBC -01/30: 1 unit of FFP and 1 unit of packed RBCs were transfused -patient adequately fluid-resuscitated -OFF pressors at this, maintain MAP > 65 mmHg or SBP > 100 mmHg for adequate end organ perfusion -01/29: Hb 7.3, INR 1.8 this morning. Transfused 1 unit of FFP and 1 unit of packed RBC, will also repeat vitamin K IVPB -01/30: Hemoglobin remained stable, decreased NG output. Discussed with GI, will continue octreotide. Discontinued Protonix infusion and IV Protonix -01/31: Hemoglobin is 9.7 this morning and stable, NG was removed 01/30 with EGD. Will continue octreotide per GI -02/01: Hemoglobin 10.1 this morning in stable, patient remains on octreotide infusion 01/28: CTA scan of the abdomen and pelvis: Findings within the liver for which malignancy is suspected. Additional findings within the rectum for which acute hemorrhage is suspected (likely secondary to anorectal varices). No findings to suggest upper GI bleeding. 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 Incidental notation is made of cholelithiasis. (2) Esophageal varices: Qualifiers: Esophageal varices bleeding: with bleeding Esophageal varices type: unspecified type Qualified Code(s): I85.01 - Esophageal varices with bleeding Code(s): I85.00 - Esophageal varices without bleeding Status: Acute Assessment and Plan: Esophageal varices as seen on CTA abdomen and pelvis. -appreciate GI evaluation -01/28: EGD: Showed actively bleeding gastric varix at the gastric cardia, a band ligation device was used to place 1 band, moderate gastritis was seen in the stomach. The gastric has a moderate portal hypertensive change. Large amount of blood was seen in the distal esophagus and the stomach the bowel and the 2nd portion of duodenum was normal with no ulcers or masses 01/30: Repeat EGD: Showed medium grade 3 varices (large varices almost occluding the esophageal lumen were present in the distal esophagus. There was no evidence of bleeding bleeding corresponding to the previous band. To more bands were placed. There was a large fundal pool of blood in the stomach. The bulb and the 2nd portion of duodenum was normal Appreciate GI following the patient, discussed with GI, will continue octreotide infusion per GI - drainage in the FMS has also slowed down, patient is not have an NG tube any more (3) Rectal varices: Code(s): K64.9 - Unspecified hemorrhoids Status: Acute Assessment and Plan: Likely related to alcoholic cirrhosis, (4) Alcoholic cirrhosis of liver with ascites: Code(s): K70.31 - Alcoholic cirrhosis of liver with ascites Status: Acute Assessment and Plan: History of alcoholic cirrhosis -LFTs and bilirubin elevated but stable -could be related to shock liver, cirrhosis, bleeding -continue ceftriaxone (01/28) for SBP prophylaxis -continue to monitor LFTs and bilirubin -INR elevated, status post vitamin K and FFP, INR is stable at 1.5 -continue to monitor (5) Airway compromise: Code(s): J98.8 - Other specified respiratory disorders Status: Acute Assessment and Plan: Patient encephalopathic with elevated ammonia level, not protecting her airway, also intubated for aspiration prevention and for EGD -01/28: Intubated patient for airway protection due to encephalopathy -currently on CMV mode of ventilation, peep of 5 and 35% FiO2 -chest x-ray and ABGs reviewed, maintain O2 sats > 92% -sedated with Precedex infusion, will have bedside RN discontinue Precedex and try to wake up patient. When she is more awake will place her on SBT and evaluate for extubation (6) Acute kidney injury: Code(s): N17.9 - Acute kidney failure, unspecified Status: Acute Assessment and Plan: Acute kidney injury, likely related to hemorrhagic shock -low urine output, creatinine and BUN improving -off pressors, blood pressures remained stable, will allow higher MAP, for adequate end organ perfusion -continue to monitor urine output, renal function electrolytes (7) Encephalopathy: Code(s): G93.40 - Encephalopathy, unspecified Status: Acute Assessment and Plan: Likely related to hyperammonemia -patient did receive lactulose enema on 01/31/2025, good bowel movements x2 Ammonia levels have normal Continue to monitor (8) Abnormal CT of liver: Code(s): R93.2 - Abnormal findings on diagnostic imaging of liver and biliary tract Status: Acute Assessment and Plan: CT abdomen and pelvis as above: Suspicious for malignancy -AFP significantly elevated to 83,546 (0.0-9.2) -GI is following the patient: Recommended may need MRI liver protocol when more stable and extubated Plan DVT prophylaxis: SCDs, no chemoprophylaxis due to hemorrhagic shock and GI bleed Stress ulcer prophylaxis: None at this time according to GI Nutrition: NPO Code Status: Full code Critical Care Time Spent: 34 minutes 01/31: Discussed with Modesta Stearns, patient's daughter at [phone], updated the daughter with patient's condition from the time she came to the hospital until today. She is aware that patient is not waking up despite being off sedation likely related to hepatic encephalopathy. I updated her with the repeat EGD that was done yesterday and that the patient has received multiple blood products. I also discussed with her code status to which the daughter stated she wanted her to be a full code. She did not have any other questions. 01/30: Discussed with Jinny Cabezas, patient's sister and updated her with patient's condition and plan of care. She stated that the patient has a daughter with anemia of Modesta Stearns, she was supposed to contact the daughter and I asked to give me a call. Will try to locate daughter's number and will give her a call and explain to her patient's condition/situation and recommendations of the database tester. Due to a high probability of clinically significant, life threatening deterioration, the patient required my highest level of preparedness to intervene emergently and I personally spent this critical care time directly and personally managing the patient. This critical care time included obtaining a history; examining the patient; pulse oximetry; ordering and review of studies; arranging urgent treatment with development of a management plan; evaluation of patient's response to treatment; frequent reassessment; and discussions with other providers. It was exclusive of separately billable procedures and treating other patients and teaching time. Please see Assessment and Plan section and the rest of the note for further information on patient assessment and treatment This dictation may have been done utilizing a voice recognition system. Attempts have been made to correct errors. However, there may be uncorrected grammatical, spelling, and recognitions errors present. Subjective Date/time seen: 02/01/25 09:40 Interval history: Reason for consult: GI bleed, Esophageal and rectal varices, shock, altered mental status, anisocoria, unable to protect her airway, intubated and on mechanical ventilator, hyperkalemia, acute renal failure, elevated LFTs 01/28: EGD: Showed actively bleeding gastric varix at the gastric cardia, a band ligation device was used to place 1 band, moderate gastritis was seen in the stomach. The gastric has a moderate portal hypertensive change. Large amount of blood was seen in the distal esophagus and the stomach the bowel and the 2nd portion of duodenum was normal with no ulcers or masses 01/30: Repeat EGD: Showed medium grade 3 varices (large varices almost occluding the esophageal lumen were present in the distal esophagus. There was no evidence of bleeding bleeding corresponding to the previous band. To more bands were placed. There was a large fundal pool of blood in the stomach. The bulb and the 2nd portion of duodenum was normal 02/01/2025: Patient seen and examined the ICU, remains intubated on CMV mode of ventilation, peep of 8, 35% FiO2. Remains on Precedex infusion. Patient has had a adequate urine output and in negative fluid balance in the last 24 hours. Patient also had 2 large bowel movements. Ammonia levels are normal with hemoglobin of 10.1 and platelets of 101 this morning. Patient is afebrile, hemodynamically stable, has been off pressors since 01/30/2025 Patient does not open her eyes or follow simple commands Review of Systems Review of Systems: ROS unobtainable: Yes unobtainable due to endotracheal tube, unobtainable due to medical condition and unobtainable due to mental status Exam Narrative: General: Patient is intubated and sedated in no acute distress HEENT:? Pupils unequal, R>L, but reactive, sclera is icteric Neck:? supple Respiratory:? Coarse breath sounds bilaterally, decreased at bases, diffuse wheezing Cardiac:? S1 S2 normal, regular rate and rhythm Abdomen:? soft, nontender, non distended, morbidly obese, hypoactive bowel sounds Extremities:?b/l edema of lower extremities, palpable pedal pulses Neuro:? Patient is intubated, sedated, does not open eyes or follow simple commands. For withdraws to pain stimulus Skin:? Feet are warm today Psych:? unable to assess Objective Data Vital Signs Vital Signs: Vital Signs - 24 hr 01/31/25 10:00 01/31/25 10:00 01/31/25 10:00 Temperature 97.7 F Pulse Rate 57 L 58 L 62 Respiratory Rate 20 20 Blood Pressure 106/89 Pulse Oximetry 94 Oxygen Delivery Fraction of Inspired Oxygen 01/31/25 10:00 01/31/25 10:21 01/31/25 12:00 Temperature 98.1 F Pulse Rate 58 L 57 L 63 Respiratory Rate 15 Blood Pressure 94/57 L Pulse Oximetry 94 92 Oxygen Delivery Mechanical Ventilation Fraction of Inspired Oxygen 35 01/31/25 12:00 01/31/25 12:00 01/31/25 12:00 Temperature Pulse Rate 59 L 59 L 69 Respiratory Rate 20 15 Blood Pressure Pulse Oximetry 92 Oxygen Delivery Mechanical Ventilation Fraction of Inspired Oxygen 35 01/31/25 12:00 01/31/25 12:00 01/31/25 12:54 Temperature Pulse Rate 67 56 L Respiratory Rate 15 Blood Pressure Pulse Oximetry Oxygen Delivery Fraction of Inspired Oxygen 35 01/31/25 12:56 01/31/25 13:02 01/31/25 13:33 Temperature Pulse Rate 56 L 56 L 66 Respiratory Rate 18 16 Blood Pressure Pulse Oximetry 92 Oxygen Delivery Mechanical Ventilation Fraction of Inspired Oxygen 35 01/31/25 14:00 01/31/25 14:00 01/31/25 14:00 Temperature 98.5 F Pulse Rate 63 62 59 L Respiratory Rate 16 17 Blood Pressure 103/63 Pulse Oximetry 96 Oxygen Delivery Fraction of Inspired Oxygen 01/31/25 14:00 01/31/25 14:00 01/31/25 16:00 Temperature Pulse Rate 63 72 58 L Respiratory Rate 16 16 Blood Pressure Pulse Oximetry 97 Oxygen Delivery Mechanical Ventilation Fraction of Inspired Oxygen 35 01/31/25 16:00 01/31/25 16:00 01/31/25 16:00 Temperature 98.4 F Pulse Rate 58 L 58 L Respiratory Rate 16 Blood Pressure 101/58 L Pulse Oximetry 97 Oxygen Delivery Fraction of Inspired Oxygen 35 01/31/25 16:00 01/31/25 16:00 01/31/25 16:33 Temperature Pulse Rate 67 58 L 59 L Respiratory Rate 18 19 Blood Pressure Pulse Oximetry Oxygen Delivery Fraction of Inspired Oxygen 01/31/25 16:33 01/31/25 17:02 01/31/25 18:00 Temperature Pulse Rate 59 L 60 62 Respiratory Rate 19 Blood Pressure Pulse Oximetry 95 Oxygen Delivery Mechanical Ventilation Fraction of Inspired Oxygen 35 01/31/25 18:00 01/31/25 18:00 01/31/25 18:00 Temperature 98.7 F Pulse Rate 64 60 61 Respiratory Rate 20 18 Blood Pressure 108/62 Pulse Oximetry 97 Oxygen Delivery Fraction of Inspired Oxygen 01/31/25 20:00 01/31/25 20:00 01/31/25 20:00 Temperature 98.9 F Pulse Rate 68 68 Respiratory Rate 22 H 22 H Blood Pressure 119/71 Pulse Oximetry 96 Oxygen Delivery Fraction of Inspired Oxygen 35 01/31/25 20:00 01/31/25 20:00 01/31/25 20:00 Temperature Pulse Rate 66 64 Respiratory Rate Blood Pressure Pulse Oximetry Oxygen Delivery Mechanical Ventilation Fraction of Inspired Oxygen 35 01/31/25 20:04 01/31/25 20:05 01/31/25 22:00 Temperature Pulse Rate 64 64 63 Respiratory Rate 18 17 Blood Pressure Pulse Oximetry 96 Oxygen Delivery Mechanical Ventilation Fraction of Inspired Oxygen 35 01/31/25 22:00 01/31/25 22:00 01/31/25 22:00 Temperature 98.4 F Pulse Rate 63 63 63 Respiratory Rate 17 Blood Pressure 117/72 Pulse Oximetry 94 Oxygen Delivery Fraction of Inspired Oxygen 01/31/25 22:50 01/31/25 22:50 01/31/25 23:02 Temperature Pulse Rate 60 60 66 Respiratory Rate 17 17 Blood Pressure Pulse Oximetry 96 Oxygen Delivery Mechanical Ventilation Fraction of Inspired Oxygen 35 02/01/25 00:00 02/01/25 00:00 02/01/25 00:00 Temperature 98.5 F Pulse Rate 59 L 59 L Respiratory Rate 17 17 Blood Pressure 115/72 Pulse Oximetry 94 Oxygen Delivery Mechanical Ventilation Fraction of Inspired Oxygen 35 02/01/25 00:00 02/01/25 00:00 02/01/25 01:18 Temperature Pulse Rate 60 58 L Respiratory Rate 17 Blood Pressure Pulse Oximetry Oxygen Delivery Fraction of Inspired Oxygen 35 02/01/25 01:23 02/01/25 02:00 02/01/25 02:00 Temperature 98.6 F Pulse Rate 58 L 64 64 Respiratory Rate 18 Blood Pressure 106/65 Pulse Oximetry 94 93 Oxygen Delivery Mechanical Ventilation Fraction of Inspired Oxygen 35 02/01/25 02:00 02/01/25 04:00 02/01/25 04:00 Temperature Pulse Rate 74 Respiratory Rate 17 Blood Pressure Pulse Oximetry Oxygen Delivery Mechanical Ventilation Fraction of Inspired Oxygen 35 35 02/01/25 04:00 02/01/25 04:00 02/01/25 04:00 Temperature 98.5 F Pulse Rate 59 L 59 L 59 L Respiratory Rate 20 20 Blood Pressure 104/66 Pulse Oximetry 94 Oxygen Delivery Fraction of Inspired Oxygen 02/01/25 04:54 02/01/25 04:57 02/01/25 05:14 Temperature Pulse Rate 60 60 57 L Respiratory Rate 22 H 22 H Blood Pressure Pulse Oximetry 95 Oxygen Delivery Mechanical Ventilation Fraction of Inspired Oxygen 35 02/01/25 06:00 02/01/25 06:00 02/01/25 06:00 Temperature 98.7 F Pulse Rate 55 L 55 L 55 L Respiratory Rate 16 16 Blood Pressure 114/75 Pulse Oximetry 94 Oxygen Delivery Fraction of Inspired Oxygen 02/01/25 08:00 02/01/25 08:00 02/01/25 08:00 Temperature 99.0 F Pulse Rate 56 L 56 L 56 L Respiratory Rate 16 17 17 Blood Pressure 118/76 Pulse Oximetry 92 92 Oxygen Delivery Mechanical Ventilation Fraction of Inspired Oxygen 35 02/01/25 08:00 02/01/25 08:22 02/01/25 08:24 Temperature Pulse Rate 55 L 56 L Respiratory Rate 17 Blood Pressure Pulse Oximetry 92 Oxygen Delivery Mechanical Ventilation Fraction of Inspired Oxygen 35 35 02/01/25 09:00 Temperature Pulse Rate 62 Respiratory Rate 19 Blood Pressure Pulse Oximetry Oxygen Delivery Fraction of Inspired Oxygen Intake/Output Intake/Output: Intake & Output 01/29/25 01/30/25 01/31/25 02/01/25 23:59 23:59 23:59 23:59 Intake Total 4819.6 1964.4 533.5 262.7 Output Total 925 2900 1800 500 Balance 3894.6 -935.6 -1266.5 -237.3 Meds/Results Medications: Active Medications Generic Name Dose Route Start Last Admin Trade Name Freq PRN Reason Stop Dose Admin Albuterol/Ipratropium 3 ml 01/30/25 14:00 02/01/25 08:22 Ipratropium 0.5 Mg/Albuterol Sulfate 2.5 Mg Ampul.Neb 3 Ml INHALATION 3 ml Q6HRT TATYANA Administration Octreotide Acetate 500 mcg/ 100 mls @ 10 mls/hr 01/27/25 22:00 02/01/25 02:50 Sodium Chloride IV CONT 50 mcg/hr .Q10H TATYANA 10 mls/hr Administration 50 MCG/HR Dexmedetomidine HCl 400 mcg in 100 mls @ 8.25 mls/hr 01/30/25 10:30 02/01/25 09:00 Precedex 400 Mcg/100 Ml IV CONT 0.2 mcg/kg/hr .Q12H8M TATYANA 8.25 mls/hr Titration Protocol 0.2 MCG/KG/HR Norepinephrine Bitartrate 8 mg in 250 mls @ 0 mls/hr 01/30/25 11:50 01/31/25 22:00 Levophed 8 Mg/D5w 250 Ml IV CONT 0 mcg/min .Q0M TATYANA 0 mls/hr Titration Protocol 0 MCG/MIN Ceftriaxone Sodium 2 gm/ 100 mls @ 200 mls/hr 02/01/25 09:00 02/01/25 09:20 Sodium Chloride IVPB 200 mls/hr Q24H TATYANA Administration Lactulose 200 gm 01/31/25 09:00 01/31/25 10:44 Lactulose Enema 200 Gm/1,000 Ml Enema RECTAL 200 gm DAILY TATYANA Administration Multi-Ingred Cream/Lotion/Oil/Oint 1 applic 01/28/25 09:15 02/01/25 08:28 Mineral Oil/White Petrolatum Ointment EACH EYE 1 applic Q12HR TATYANA Administration Ondansetron HCl 4 mg 01/28/25 01:51 Ondansetron Inj 4 Mg/2 Ml Vial IV PUSH Q4H PRN Nausea Rifaximin 550 mg 01/30/25 10:00 01/31/25 19:39 Rifaximin 550 Mg Tablet PO Not Given Q12HR TATYANA Sodium Chloride 10 ml 01/28/25 14:00 02/01/25 04:58 Central Line Flush IV PUSH 10 ml Q8HR TATYANA Administration Sodium Chloride 20 ml 01/28/25 06:37 Central Line Flush IV PUSH PRN PRN after blood draws Radiology Results: ITS Impressions Abdomen/Pelvis CTA 01/28/25 00:08 IMPRESSION: Findings within the liver for which malignancy is suspected. Additional findings within the rectum for which acute hemorrhage is suspected (likely secondary to anorectal varices). No findings to suggest upper GI bleeding. 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 Incidental notation is made of cholelithiasis. Head CT 01/28/25 11:51 Impression: No significant abnormality seen. Abdomen X-Ray 01/28/25 13:57 IMPRESSION: 1. Nasogastric tube in stomach. Chest X-Ray 02/01/25 07:31 IMPRESSION: 1. Small lung volumes and persistent opacities in bilateral lower lung zones, decreased on the left, which could represent atelectasis or pneumonia. Labs Labs: Laboratory Results - last 24 hr 01/31/25 01/31/25 01/31/25 11:13 18:33 22:59 WBC RBC Hgb Hct MCV MCH MCHC RDW Plt Count MPV % Immature Plt Fraction PT INR Puncture Site ABG pH ABG pCO2 ABG pO2 ABG PO2/FiO2 Ratio ABG HCO3 ABG O2 Saturation ABG O2 Content ABG Base Excess A-a Gradient Oxyhemoglobin Carboxyhemoglobin Methemoglobin Reduced Hemoglobin Total Hemoglobin O2 Delivery Device O2 Liters/Min Minute Volume Vent Rate Vent Mode FiO2 Tidal Volume PEEP Peak Inspir Pressure Pressure Support Sodium Potassium Chloride Carbon Dioxide Anion Gap BUN Creatinine Estim Creat Clear Calc Estimated GFR Glucose POC Capillary Glucose 129 H 122 H 139 H Lactic Acid Calcium Phosphorus Magnesium Total Bilirubin AST ALT Alkaline Phosphatase Ammonia C-Reactive Protein Total Protein Albumin 02/01/25 02/01/25 02/01/25 05:04 05:07 07:13 WBC 8.1 RBC 2.98 L Hgb 10.1 L Hct 30.9 L MCV 103.7 H D MCH 33.9 MCHC 32.7 RDW 22.5 H Plt Count 101 L MPV 10.3 % Immature Plt Fraction 3.4 PT 18.1 H INR 1.5 Puncture Site Left radial ABG pH 7.454 H ABG pCO2 37.2 ABG pO2 68.9 L ABG PO2/FiO2 Ratio 1.97 ABG HCO3 25.5 ABG O2 Saturation 94.7 L ABG O2 Content 14.2 L ABG Base Excess 1.7 A-a Gradient 137.4 Oxyhemoglobin 92.4 Carboxyhemoglobin 0.8 Methemoglobin 0.3 Reduced Hemoglobin 6.5 H Total Hemoglobin 10.9 L O2 Delivery Device Ventilator O2 Liters/Min Not Reportable Minute Volume Not Reportable Vent Rate 16 Vent Mode Cmv FiO2 35 Tidal Volume 400 PEEP 8 Peak Inspir Pressure Not Reportable Pressure Support Not Reportable Sodium 142 Potassium 4.0 Chloride 111 H Carbon Dioxide 25 Anion Gap 6 BUN 52 H D Creatinine 1.05 H Estim Creat Clear Calc 80 Estimated GFR 53 L Glucose 125 H POC Capillary Glucose Lactic Acid 1.3 Calcium 9.5 Phosphorus 2.8 Magnesium 1.9 Total Bilirubin 3.6 H AST 196 H ALT 57 H Alkaline Phosphatase 79 Ammonia 10 C-Reactive Protein 8.5 H Total Protein 6.2 L Albumin 2.9 L Quality VTE Prophylaxis VTE prophylaxis: mechanical ordered
--- NOTE | 2025-02-01 11:13 | WPDGIPROGNO ---
Progress Note: A&P Assessment and Plan (1) Esophageal varices: Qualifiers: Esophageal varices bleeding: with bleeding Esophageal varices type: unspecified type Qualified Code(s): I85.01 - Esophageal varices with bleeding Code(s): I85.00 - Esophageal varices without bleeding Status: Acute Assessment and Plan: The patient remains intubated and hemodynamically stable with no evidence of further GI bleeding And off vasopressors. She continues receiving octreotide and ceftriaxone. However, she has not woken up despite attempts to withdraw sedation and is receiving lactulose via rectal enemas. Therefore, extubation is not possible at this time. As noted previously, her overall prognosis is grim due to multifocal hepatocellular carcinoma. If she were to experience recurrent bleeding, a TIPS would not be an option for management due to her portal vein thrombosis and focal hepatocellular carcinoma, which are contraindications. Subjective Date/time seen: 02/01/25 11:13 Objective Data Vital Signs Vital Signs: Vital Signs - 24 hr 01/31/25 12:00 01/31/25 12:00 01/31/25 12:00 Temperature 98.1 F Pulse Rate 63 59 L 59 L Respiratory Rate 15 20 15 Blood Pressure 94/57 L Pulse Oximetry 92 92 Oxygen Delivery Mechanical Ventilation Fraction of Inspired Oxygen 35 01/31/25 12:00 01/31/25 12:00 01/31/25 12:00 Temperature Pulse Rate 69 67 Respiratory Rate Blood Pressure Pulse Oximetry Oxygen Delivery Fraction of Inspired Oxygen 35 01/31/25 12:54 01/31/25 12:56 01/31/25 13:02 Temperature Pulse Rate 56 L 56 L 56 L Respiratory Rate 15 18 Blood Pressure Pulse Oximetry 92 Oxygen Delivery Mechanical Ventilation Fraction of Inspired Oxygen 35 01/31/25 13:33 01/31/25 14:00 01/31/25 14:00 Temperature 98.5 F Pulse Rate 66 63 62 Respiratory Rate 16 16 17 Blood Pressure 103/63 Pulse Oximetry 96 Oxygen Delivery Fraction of Inspired Oxygen 01/31/25 14:00 01/31/25 14:00 01/31/25 14:00 Temperature Pulse Rate 59 L 63 72 Respiratory Rate 16 Blood Pressure Pulse Oximetry Oxygen Delivery Fraction of Inspired Oxygen 01/31/25 16:00 01/31/25 16:00 01/31/25 16:00 Temperature Pulse Rate 58 L 58 L Respiratory Rate 16 Blood Pressure Pulse Oximetry 97 Oxygen Delivery Mechanical Ventilation Fraction of Inspired Oxygen 35 35 01/31/25 16:00 01/31/25 16:00 01/31/25 16:00 Temperature 98.4 F Pulse Rate 58 L 67 58 L Respiratory Rate 16 18 Blood Pressure 101/58 L Pulse Oximetry 97 Oxygen Delivery Fraction of Inspired Oxygen 01/31/25 16:33 01/31/25 16:33 01/31/25 17:02 Temperature Pulse Rate 59 L 59 L 60 Respiratory Rate 19 19 Blood Pressure Pulse Oximetry 95 Oxygen Delivery Mechanical Ventilation Fraction of Inspired Oxygen 35 01/31/25 18:00 01/31/25 18:00 01/31/25 18:00 Temperature 98.7 F Pulse Rate 62 64 60 Respiratory Rate 20 18 Blood Pressure 108/62 Pulse Oximetry 97 Oxygen Delivery Fraction of Inspired Oxygen 01/31/25 18:00 01/31/25 20:00 01/31/25 20:00 Temperature 98.9 F Pulse Rate 61 68 68 Respiratory Rate 22 H 22 H Blood Pressure 119/71 Pulse Oximetry 96 Oxygen Delivery Fraction of Inspired Oxygen 01/31/25 20:00 01/31/25 20:00 01/31/25 20:00 Temperature Pulse Rate 66 Respiratory Rate Blood Pressure Pulse Oximetry Oxygen Delivery Mechanical Ventilation Fraction of Inspired Oxygen 35 35 01/31/25 20:00 01/31/25 20:04 01/31/25 20:05 Temperature Pulse Rate 64 64 64 Respiratory Rate 18 Blood Pressure Pulse Oximetry 96 Oxygen Delivery Mechanical Ventilation Fraction of Inspired Oxygen 35 01/31/25 22:00 01/31/25 22:00 01/31/25 22:00 Temperature Pulse Rate 63 63 63 Respiratory Rate 17 Blood Pressure Pulse Oximetry Oxygen Delivery Fraction of Inspired Oxygen 01/31/25 22:00 01/31/25 22:50 01/31/25 22:50 Temperature 98.4 F Pulse Rate 63 60 60 Respiratory Rate 17 17 17 Blood Pressure 117/72 Pulse Oximetry 94 Oxygen Delivery Fraction of Inspired Oxygen 01/31/25 23:02 02/01/25 00:00 02/01/25 00:00 Temperature 98.5 F Pulse Rate 66 59 L 59 L Respiratory Rate 17 17 Blood Pressure 115/72 Pulse Oximetry 96 94 Oxygen Delivery Mechanical Ventilation Fraction of Inspired Oxygen 35 02/01/25 00:00 02/01/25 00:00 02/01/25 00:00 Temperature Pulse Rate 60 Respiratory Rate Blood Pressure Pulse Oximetry Oxygen Delivery Mechanical Ventilation Fraction of Inspired Oxygen 35 35 02/01/25 01:18 02/01/25 01:23 02/01/25 02:00 Temperature Pulse Rate 58 L 58 L 64 Respiratory Rate 17 Blood Pressure Pulse Oximetry 94 Oxygen Delivery Mechanical Ventilation Fraction of Inspired Oxygen 35 02/01/25 02:00 02/01/25 02:00 02/01/25 04:00 Temperature 98.6 F Pulse Rate 64 74 Respiratory Rate 18 17 Blood Pressure 106/65 Pulse Oximetry 93 Oxygen Delivery Mechanical Ventilation Fraction of Inspired Oxygen 35 02/01/25 04:00 02/01/25 04:00 02/01/25 04:00 Temperature 98.5 F Pulse Rate 59 L 59 L Respiratory Rate 20 20 Blood Pressure 104/66 Pulse Oximetry 94 Oxygen Delivery Fraction of Inspired Oxygen 35 02/01/25 04:00 02/01/25 04:54 02/01/25 04:57 Temperature Pulse Rate 59 L 60 60 Respiratory Rate 22 H 22 H Blood Pressure Pulse Oximetry Oxygen Delivery Fraction of Inspired Oxygen 02/01/25 05:14 02/01/25 06:00 02/01/25 06:00 Temperature Pulse Rate 57 L 55 L 55 L Respiratory Rate 16 Blood Pressure Pulse Oximetry 95 Oxygen Delivery Mechanical Ventilation Fraction of Inspired Oxygen 35 02/01/25 06:00 02/01/25 08:00 02/01/25 08:00 Temperature 98.7 F 99.0 F Pulse Rate 55 L 56 L 56 L Respiratory Rate 16 16 17 Blood Pressure 114/75 118/76 Pulse Oximetry 94 92 Oxygen Delivery Fraction of Inspired Oxygen 02/01/25 08:00 02/01/25 08:00 02/01/25 08:00 Temperature Pulse Rate 56 L 55 L Respiratory Rate 17 Blood Pressure Pulse Oximetry 92 Oxygen Delivery Mechanical Ventilation Fraction of Inspired Oxygen 35 35 02/01/25 08:22 02/01/25 08:24 02/01/25 09:00 Temperature Pulse Rate 55 L 56 L 62 Respiratory Rate 17 19 Blood Pressure Pulse Oximetry 92 Oxygen Delivery Mechanical Ventilation Fraction of Inspired Oxygen 35 02/01/25 09:45 02/01/25 10:00 02/01/25 10:00 Temperature 99.3 F Pulse Rate 66 65 68 Respiratory Rate 18 20 18 Blood Pressure 107/66 Pulse Oximetry 95 Oxygen Delivery Fraction of Inspired Oxygen 02/01/25 10:00 02/01/25 10:03 02/01/25 10:46 Temperature Pulse Rate 66 61 69 Respiratory Rate 45 H Blood Pressure Pulse Oximetry 97 Oxygen Delivery Mechanical Ventilation Fraction of Inspired Oxygen 35 02/01/25 10:47 Temperature Pulse Rate Respiratory Rate Blood Pressure Pulse Oximetry Oxygen Delivery Fraction of Inspired Oxygen 35 Intake/Output Intake/Output: Intake & Output 01/29/25 01/30/25 01/31/25 02/01/25 23:59 23:59 23:59 23:59 Intake Total 4819.6 1964.4 533.5 368.9 Output Total 925 2900 1800 500 Balance 3894.6 -935.6 -1266.5 -131.1 Meds/Results Medications: Active Medications Generic Name Dose Route Start Last Admin Trade Name Freq PRN Reason Stop Dose Admin Acetylcysteine 200 mg 02/01/25 14:00 Acetylcysteine 20% Inhal Soln 800 Mg/4 Ml Vial INHALATION Q6HRT TATYANA Albuterol/Ipratropium 3 ml 01/30/25 14:00 02/01/25 08:22 Ipratropium 0.5 Mg/Albuterol Sulfate 2.5 Mg Ampul.Neb 3 Ml INHALATION 3 ml Q6HRT TATYANA Administration Octreotide Acetate 500 mcg/ 100 mls @ 10 mls/hr 01/27/25 22:00 02/01/25 02:50 Sodium Chloride IV CONT 50 mcg/hr .Q10H TATYANA 10 mls/hr Administration 50 MCG/HR Dexmedetomidine HCl 400 mcg in 100 mls @ 8.25 mls/hr 01/30/25 10:30 02/01/25 10:46 Precedex 400 Mcg/100 Ml IV CONT 0.2 mcg/kg/hr .Q12H8M TATYANA 8.25 mls/hr Titration Protocol 0.2 MCG/KG/HR Norepinephrine Bitartrate 8 mg in 250 mls @ 0 mls/hr 01/30/25 11:50 01/31/25 22:00 Levophed 8 Mg/D5w 250 Ml IV CONT 0 mcg/min .Q0M TATYANA 0 mls/hr Titration Protocol 0 MCG/MIN Ceftriaxone Sodium 2 gm/ 100 mls @ 200 mls/hr 02/01/25 09:00 02/01/25 10:17 Sodium Chloride IVPB Infused Q24H TATYANA Infusion Multi-Ingred Cream/Lotion/Oil/Oint 1 applic 01/28/25 09:15 02/01/25 08:28 Mineral Oil/White Petrolatum Ointment EACH EYE 1 applic Q12HR TATYANA Administration Non-Formulary Medication 2.5 mg 02/01/25 11:15 Pulmozyme NEBULIZE 02/03/25 11:16 Q12H TATYANA Ondansetron HCl 4 mg 01/28/25 01:51 Ondansetron Inj 4 Mg/2 Ml Vial IV PUSH Q4H PRN Nausea Sodium Chloride 10 ml 01/28/25 14:00 02/01/25 04:58 Central Line Flush IV PUSH 10 ml Q8HR TATYANA Administration Sodium Chloride 20 ml 01/28/25 06:37 Central Line Flush IV PUSH PRN PRN after blood draws Radiology Results: ITS Impressions Abdomen/Pelvis CTA 01/28/25 00:08 IMPRESSION: Findings within the liver for which malignancy is suspected. Additional findings within the rectum for which acute hemorrhage is suspected (likely secondary to anorectal varices). No findings to suggest upper GI bleeding. 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 Incidental notation is made of cholelithiasis. Head CT 01/28/25 11:51 Impression: No significant abnormality seen. Abdomen X-Ray 01/28/25 13:57 IMPRESSION: 1. Nasogastric tube in stomach. Chest X-Ray 02/01/25 07:31 IMPRESSION: 1. Small lung volumes and persistent opacities in bilateral lower lung zones, decreased on the left, which could represent atelectasis or pneumonia. Labs Labs: Laboratory Results - last 24 hr 01/31/25 01/31/25 01/31/25 11:13 18:33 22:59 WBC RBC Hgb Hct MCV MCH MCHC RDW Plt Count MPV % Immature Plt Fraction PT INR Puncture Site ABG pH ABG pCO2 ABG pO2 ABG PO2/FiO2 Ratio ABG HCO3 ABG O2 Saturation ABG O2 Content ABG Base Excess A-a Gradient Oxyhemoglobin Carboxyhemoglobin Methemoglobin Reduced Hemoglobin Total Hemoglobin O2 Delivery Device O2 Liters/Min Minute Volume Vent Rate Vent Mode FiO2 Tidal Volume PEEP Peak Inspir Pressure Pressure Support Sodium Potassium Chloride Carbon Dioxide Anion Gap BUN Creatinine Estim Creat Clear Calc Estimated GFR Glucose POC Capillary Glucose 129 H 122 H 139 H Lactic Acid Calcium Phosphorus Magnesium Total Bilirubin AST ALT Alkaline Phosphatase Ammonia C-Reactive Protein Total Protein Albumin 02/01/25 02/01/25 02/01/25 05:04 05:07 07:13 WBC 8.1 RBC 2.98 L Hgb 10.1 L Hct 30.9 L MCV 103.7 H D MCH 33.9 MCHC 32.7 RDW 22.5 H Plt Count 101 L MPV 10.3 % Immature Plt Fraction 3.4 PT 18.1 H INR 1.5 Puncture Site Left radial ABG pH 7.454 H ABG pCO2 37.2 ABG pO2 68.9 L ABG PO2/FiO2 Ratio 1.97 ABG HCO3 25.5 ABG O2 Saturation 94.7 L ABG O2 Content 14.2 L ABG Base Excess 1.7 A-a Gradient 137.4 Oxyhemoglobin 92.4 Carboxyhemoglobin 0.8 Methemoglobin 0.3 Reduced Hemoglobin 6.5 H Total Hemoglobin 10.9 L O2 Delivery Device Ventilator O2 Liters/Min Not Reportable Minute Volume Not Reportable Vent Rate 16 Vent Mode Cmv FiO2 35 Tidal Volume 400 PEEP 8 Peak Inspir Pressure Not Reportable Pressure Support Not Reportable Sodium 142 Potassium 4.0 Chloride 111 H Carbon Dioxide 25 Anion Gap 6 BUN 52 H D Creatinine 1.05 H Estim Creat Clear Calc 80 Estimated GFR 53 L Glucose 125 H POC Capillary Glucose Lactic Acid 1.3 Calcium 9.5 Phosphorus 2.8 Magnesium 1.9 Total Bilirubin 3.6 H AST 196 H ALT 57 H Alkaline Phosphatase 79 Ammonia 10 C-Reactive Protein 8.5 H Total Protein 6.2 L Albumin 2.9 L
[2025-02-01] MEDS: DORNASE ALFA INH SOLN 1 MG/ML 2.5 ML AMP 2.5 MG INHALATION ×2 (11:22→20:43)
[2025-02-01] MEDS: dexmedeTOMIDine 400 MCG/100 ML 400 MCG/100 ML BAG 8.25 MCG IV CONT (14:17)
[2025-02-01] MEDS: ACETYLCYSTEINE 20% INHAL SOLN 800 MG/4 ML VIAL 200 MG INHALATION ×2 (14:27→20:40)
[2025-02-01] MEDS: ACETAMINOPHEN 650 MG SUPPOSITORY RECTAL (15:42)
--- NOTE | 2025-02-01 16:47 | P.PNIM_ITS ---
Progress Note: A&P Assessment and Plan (1) Hemorrhagic shock: Code(s): R57.8 - Other shock Status: Acute Assessment and Plan: Pt presented with rectal bleed, CT showed esophageal and rectal varices. -Transfused 2 units unmatched PRBC in the ER -hemoglobin this morning is 9.3, platelets 186 -01/28: INR 1.6, will give vitamin K -01/28: Transfused 1 unit of FFP and 1 unit of packed RBC -01/30: 1 unit of FFP and 1 unit of packed RBCs were transfused -patient adequately fluid-resuscitated -OFF pressors at this, maintain MAP > 65 mmHg or SBP > 100 mmHg for adequate end organ perfusion -01/29: Hb 7.3, INR 1.8 this morning. Transfused 1 unit of FFP and 1 unit of packed RBC, will also repeat vitamin K IVPB -01/30: Hemoglobin remained stable, decreased NG output. Discussed with GI, will continue octreotide. Discontinued Protonix infusion and IV Protonix -01/31: Hemoglobin is 9.7 this morning and stable, NG was removed 01/30 with EGD. Will continue octreotide per GI -02/01: Hemoglobin 10.1 this morning in stable, patient remains on octreotide infusion 01/28: CTA scan of the abdomen and pelvis: Findings within the liver for which malignancy is suspected. Additional findings within the rectum for which acute hemorrhage is suspected (likely secondary to anorectal varices). No findings to suggest upper GI bleeding. 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 Incidental notation is made of cholelithiasis. (2) Esophageal varices: Qualifiers: Esophageal varices bleeding: with bleeding Esophageal varices type: unspecified type Qualified Code(s): I85.01 - Esophageal varices with bleeding Code(s): I85.00 - Esophageal varices without bleeding Status: Acute Assessment and Plan: Esophageal varices as seen on CTA abdomen and pelvis. -appreciate GI evaluation -01/28: EGD: Showed actively bleeding gastric varix at the gastric cardia, a band ligation device was used to place 1 band, moderate gastritis was seen in the stomach. The gastric has a moderate portal hypertensive change. Large amount of blood was seen in the distal esophagus and the stomach the bowel and the 2nd portion of duodenum was normal with no ulcers or masses 01/30: Repeat EGD: Showed medium grade 3 varices (large varices almost occluding the esophageal lumen were present in the distal esophagus. There was no evidence of bleeding bleeding corresponding to the previous band. To more b ands were placed. There was a large fundal pool of blood in the stomach. The bulb and the 2nd portion of duodenum was normal Appreciate GI following the patient, discussed with GI, will continue octreotide infusion per GI - drainage in the FMS has also slowed down, patient is not have an NG tube any more (3) Rectal varices: Code(s): K64.9 - Unspecified hemorrhoids Status: Acute Assessment and Plan: Likely related to alcoholic cirrhosis, (4) Alcoholic cirrhosis of liver with ascites: Code(s): K70.31 - Alcoholic cirrhosis of liver with ascites Status: Acute Assessment and Plan: History of alcoholic cirrhosis -LFTs and bilirubin elevated but stable -could be related to shock liver, cirrhosis, bleeding -continue ceftriaxone (01/28) for SBP prophylaxis -continue to monitor LFTs and bilirubin -INR elevated, status post vitamin K and FFP, INR is stable at 1.5 -continue to monitor (5) Airway compromise: Code(s): J98.8 - Other specified respiratory disorders Status: Acute Assessment and Plan: Patient encephalopathic with elevated ammonia level, not protecting her airway, also intubated for aspiration prevention and for EGD -01/28: Intubated patient for airway protection due to encephalopathy -currently on CMV mode of ventilation, peep of 5 and 35% FiO2 -chest x-ray and ABGs reviewed, maintain O2 sats > 92% -sedated with Precedex infusion, will have bedside RN discontinue Precedex and try to wake up patient. When she is more awake will place her on SBT and evaluate for extubation (6) Acute kidney injury: Code(s): N17.9 - Acute kidney failure, unspecified Status: Acute Assessment and Plan: Acute kidney injury, likely related to hemorrhagic shock -low urine output, creatinine and BUN improving -off pressors, blood pressures remained stable, will allow higher MAP, for adequate end organ perfusion -continue to monitor urine output, renal function electrolytes (7) Encephalopathy: Code(s): G93.40 - Encephalopathy, unspecified Status: Acute Assessment and Plan: Likely related to hyperammonemia -patient did receive lactulose enema on 01/31/2025, good bowel movements x2 Ammonia levels have normal Continue to monitor (8) Abnormal CT of liver: Code(s): R93.2 - Abnormal findings on diagnostic imaging of liver and biliary tract Status: Acute Assessment and Plan: CT abdomen and pelvis as above: Suspicious for malignancy -AFP significantly elevated to 83,546 (0.0-9.2) -GI is following the patient: Recommended may need MRI liver protocol when more stable and extubated Plan DVT prophylaxis: SCDs, no chemoprophylaxis due to hemorrhagic shock and GI bleed Stress ulcer prophylaxis: None at this time according to GI Nutrition: NPO Code Status: Full code Subjective Date/time seen: 02/01/25 16:47 Interval history: Comfortable at bedside Review of Systems Review of Systems: Review of systems unobtainable due to patient's confusion All systems reviewed & are unremarkable except as noted in HPI and below ROS unobtainable: Yes unobtainable due to endotracheal tube, unobtainable due to medical condition and unobtainable due to mental status Exam Narrative: General: Patient is intubated and sedated in no acute distress HEENT:? Pupils unequal, R>L, but reactive, sclera is icteric Neck:? supple Respiratory:? Coarse breath sounds bilaterally, decreased at bases, diffuse wheezing Cardiac:? S1 S2 normal, regular rate and rhythm Abdomen:? soft, nontender, non distended, morbidly obese, hypoactive bowel sounds Extremities:?b/l edema of lower extremities, palpable pedal pulses Neuro:? Patient is intubated, sedated, does not open eyes or follow simple commands. For withdraws to pain stimulus Skin:? Feet are warm today Psych:? unable to assess Const: Other: Morbidly obese, acutely ill-appearing, agitated and restless and difficult to redirect HENMT: Other: Head is normocephalic atraumatic, mucous membranes are tacky, crowded posterior oropharynx, right NG tube present with maroon drainage Eyes: Other: Pupils are equal and reactive, positive conjunctival pallor, mild scleral icterus noted Neck: Other: Large neck circumference, no lymphadenopathy, no JVD Resp: Other: Regular rate, regular rhythm, 2+ bilateral radial pedal pulses Cardio: Other: Sinus tachycardia, 2 no murmur, no JVD GI: Other: Distended, tense, no fluid wave, generalized discomfort on palpation : Other: Simon catheter in place with clear yellow urine Back/Spine/Pelvis: Other: Incontinent of melenic stool rectal tube in place but no stool within the fecal management system Skin: Other: Generalized pallor, non jaundice, chronic skin changes to bilateral lower extremities consistent with peripheral vascular disease and or venous stasis dermatitis Neuro: Other: Patient is alert oriented person it is unclear whether she realized that she is in the hospital or not she states she does not know the month or year and cannot tell me why she is in the hospital, she is moving all extremities equally and localizing to pain Extrem: Other: No cyanosis, no pitting edema, moves all extremities equally Psych: Other: Agitated, restless, difficult to redirect, poor judgment and insight Objective Data Vital Signs Vital Signs: Vital Signs - 24 hr 01/31/25 17:02 01/31/25 18:00 01/31/25 18:00 Temperature 98.7 F Pulse Rate 60 62 64 Respiratory Rate 20 Blood Pressure 108/62 Pulse Oximetry 95 97 Oxygen Delivery Mechanical Ventilation Fraction of Inspired Oxygen 35 01/31/25 18:00 01/31/25 18:00 01/31/25 20:00 Temperature 98.9 F Pulse Rate 60 61 68 Respiratory Rate 18 22 H Blood Pressure 119/71 Pulse Oximetry 96 Oxygen Delivery Fraction of Inspired Oxygen 01/31/25 20:00 01/31/25 20:00 01/31/25 20:00 Temperature Pulse Rate 68 Respiratory Rate 22 H Blood Pressure Pulse Oximetry Oxygen Delivery Mechanical Ventilation Fraction of Inspired Oxygen 35 35 01/31/25 20:00 01/31/25 20:00 01/31/25 20:04 Temperature Pulse Rate 66 64 64 Respiratory Rate 18 Blood Pressure Pulse Oximetry Oxygen Delivery Fraction of Inspired Oxygen 01/31/25 20:05 01/31/25 22:00 01/31/25 22:00 Temperature Pulse Rate 64 63 63 Respiratory Rate 17 Blood Pressure Pulse Oximetry 96 Oxygen Delivery Mechanical Ventilation Fraction of Inspired Oxygen 35 01/31/25 22:00 01/31/25 22:00 01/31/25 22:50 Temperature 98.4 F Pulse Rate 63 63 60 Respiratory Rate 17 17 Blood Pressure 117/72 Pulse Oximetry 94 Oxygen Delivery Fraction of Inspired Oxygen 01/31/25 22:50 01/31/25 23:02 02/01/25 00:00 Temperature Pulse Rate 60 66 59 L Respiratory Rate 17 17 Blood Pressure Pulse Oximetry 96 Oxygen Delivery Mechanical Ventilation Fraction of Inspired Oxygen 35 02/01/25 00:00 02/01/25 00:00 02/01/25 00:00 Temperature 98.5 F Pulse Rate 59 L Respiratory Rate 17 Blood Pressure 115/72 Pulse Oximetry 94 Oxygen Delivery Mechanical Ventilation Fraction of Inspired Oxygen 35 35 02/01/25 00:00 02/01/25 01:18 02/01/25 01:23 Temperature Pulse Rate 60 58 L 58 L Respiratory Rate 17 Blood Pressure Pulse Oximetry 94 Oxygen Delivery Mechanical Ventilation Fraction of Inspired Oxygen 35 02/01/25 02:00 02/01/25 02:00 02/01/25 02:00 Temperature 98.6 F Pulse Rate 64 64 74 Respiratory Rate 18 17 Blood Pressure 106/65 Pulse Oximetry 93 Oxygen Delivery Fraction of Inspired Oxygen 02/01/25 04:00 02/01/25 04:00 02/01/25 04:00 Temperature Pulse Rate 59 L Respiratory Rate 20 Blood Pressure Pulse Oximetry Oxygen Delivery Mechanical Ventilation Fraction of Inspired Oxygen 35 35 02/01/25 04:00 02/01/25 04:00 02/01/25 04:54 Temperature 98.5 F Pulse Rate 59 L 59 L 60 Respiratory Rate 20 22 H Blood Pressure 104/66 Pulse Oximetry 94 Oxygen Delivery Fraction of Inspired Oxygen 02/01/25 04:57 02/01/25 05:14 02/01/25 06:00 Temperature Pulse Rate 60 57 L 55 L Respiratory Rate 22 H 16 Blood Pressure Pulse Oximetry 95 Oxygen Delivery Mechanical Ventilation Fraction of Inspired Oxygen 35 02/01/25 06:00 02/01/25 06:00 02/01/25 08:00 Temperature 98.7 F 99.0 F Pulse Rate 55 L 55 L 56 L Respiratory Rate 16 16 Blood Pressure 114/75 118/76 Pulse Oximetry 94 92 Oxygen Delivery Fraction of Inspired Oxygen 02/01/25 08:00 02/01/25 08:00 02/01/25 08:00 Temperature Pulse Rate 56 L 56 L Respiratory Rate 17 17 Blood Pressure Pulse Oximetry 92 Oxygen Delivery Mechanical Ventilation Fraction of Inspired Oxygen 35 35 02/01/25 08:00 02/01/25 08:00 02/01/25 08:22 Temperature Pulse Rate 55 L 76 55 L Respiratory Rate 17 Blood Pressure 118/76 Pulse Oximetry Oxygen Delivery Fraction of Inspired Oxygen 02/01/25 08:24 02/01/25 08:35 02/01/25 09:00 Temperature Pulse Rate 56 L 56 L 62 Respiratory Rate 18 19 Blood Pressure Pulse Oximetry 92 Oxygen Delivery Mechanical Ventilation Fraction of Inspired Oxygen 35 02/01/25 09:45 02/01/25 10:00 02/01/25 10:00 Temperature 99.3 F Pulse Rate 66 65 68 Respiratory Rate 18 20 18 Blood Pressure 107/66 Pulse Oximetry 95 Oxygen Delivery Fraction of Inspired Oxygen 02/01/25 10:00 02/01/25 10:00 02/01/25 10:03 Temperature Pulse Rate 66 66 61 Respiratory Rate Blood Pressure 107/66 Pulse Oximetry 97 Oxygen Delivery Mechanical Ventilation Fraction of Inspired Oxygen 35 02/01/25 10:46 02/01/25 10:47 02/01/25 11:00 Temperature Pulse Rate 69 67 Respiratory Rate 45 H 23 H Blood Pressure Pulse Oximetry Oxygen Delivery Fraction of Inspired Oxygen 35 02/01/25 11:20 02/01/25 11:20 02/01/25 11:30 Temperature Pulse Rate 63 64 66 Respiratory Rate 22 H 22 H Blood Pressure Pulse Oximetry 98 Oxygen Delivery Mechanical Ventilation Fraction of Inspired Oxygen 35 02/01/25 12:00 02/01/25 12:00 02/01/25 12:00 Temperature 100.2 F H Pulse Rate 59 L 59 L Respiratory Rate 21 H 21 H Blood Pressure 113/70 Pulse Oximetry 91 91 Oxygen Delivery Mechanical Ventilation Fraction of Inspired Oxygen 35 35 02/01/25 12:00 02/01/25 12:00 02/01/25 12:00 Temperature Pulse Rate 59 L 59 L 59 L Respiratory Rate 19 Blood Pressure 113/70 Pulse Oximetry Oxygen Delivery Fraction of Inspired Oxygen 02/01/25 14:00 02/01/25 14:00 02/01/25 14:00 Temperature 100.4 F H Pulse Rate 66 66 66 Respiratory Rate 14 14 Blood Pressure 119/66 119/66 Pulse Oximetry 95 Oxygen Delivery Fraction of Inspired Oxygen 02/01/25 14:00 02/01/25 14:17 02/01/25 14:17 Temperature Pulse Rate 66 64 64 Respiratory Rate 20 20 Blood Pressure Pulse Oximetry Oxygen Delivery Fraction of Inspired Oxygen 02/01/25 14:28 02/01/25 14:40 02/01/25 14:42 Temperature Pulse Rate 69 76 69 Respiratory Rate 22 H 28 H Blood Pressure Pulse Oximetry 93 Oxygen Delivery Mechanical Ventilation Fraction of Inspired Oxygen 35 02/01/25 15:42 02/01/25 15:42 02/01/25 16:00 Temperature 100.7 F H 100.8 F H Pulse Rate 70 72 Respiratory Rate 25 H 20 Blood Pressure 116/66 Pulse Oximetry 97 Oxygen Delivery Fraction of Inspired Oxygen 02/01/25 16:00 02/01/25 16:00 02/01/25 16:00 Temperature Pulse Rate 70 70 Respiratory Rate 18 19 Blood Pressure Pulse Oximetry 97 Oxygen Delivery Mechanical Ventilation Fraction of Inspired Oxygen 35 35 02/01/25 16:00 Temperature Pulse Rate 70 Respiratory Rate Blood Pressure Pulse Oximetry Oxygen Delivery Fraction of Inspired Oxygen Intake/Output Intake/Output: Intake & Output 01/29/25 01/30/25 01/31/25 02/01/25 23:59 23:59 23:59 23:59 Intake Total 4819.6 1964.4 533.5 514.6 Output Total 925 2900 1800 500 Balance 3894.6 -935.6 -1266.5 14.6 Meds/Results Medications: Active Medications Generic Name Dose Route Start Last Admin Trade Name Freq PRN Reason Stop Dose Admin Acetaminophen 650 mg 02/01/25 14:06 02/01/25 15:42 Acetaminophen 650 Mg Suppository RECTAL 650 mg Q6H PRN Administration Mild Pain (1-3) or Fever Acetylcysteine 200 mg 02/01/25 14:00 02/01/25 14:27 Acetylcysteine 20% Inhal Soln 800 Mg/4 Ml Vial INHALATION 200 mg Q6HRT TATYANA Administration Albuterol/Ipratropium 3 ml 01/30/25 14:00 02/01/25 14:27 Ipratropium 0.5 Mg/Albuterol Sulfate 2.5 Mg Ampul.Neb 3 Ml INHALATION 3 ml Q6HRT TATYANA Administration Dornase Hari 2.5 mg 02/01/25 11:30 02/01/25 11:22 Dornase Hari Inh Soln 1 Mg/Ml 2.5 Ml Amp INHALATION 02/03/25 08:01 2.5 mg Q12HRT TATYANA Administration Octreotide Acetate 500 mcg/ 100 mls @ 10 mls/hr 01/27/25 22:00 02/01/25 14:17 Sodium Chloride IV CONT 50 mcg/hr .Q10H TATYANA 10 mls/hr Administration 50 MCG/HR Dexmedetomidine HCl 400 mcg in 100 mls @ 16.5 mls/hr 01/30/25 10:30 02/01/25 16:00 Precedex 400 Mcg/100 Ml IV CONT 0.4 mcg/kg/hr .Q6H4M TATYANA 16.5 mls/hr Titration Protocol 0.4 MCG/KG/HR Ceftriaxone Sodium 2 gm/ 100 mls @ 200 mls/hr 02/01/25 09:00 02/01/25 10:17 Sodium Chloride IVPB Infused Q24H TATYANA Infusion Multi-Ingred Cream/Lotion/Oil/Oint 1 applic 01/28/25 09:15 02/01/25 08:28 Mineral Oil/White Petrolatum Ointment EACH EYE 1 applic Q12HR TATYANA Administration Ondansetron HCl 4 mg 01/28/25 01:51 Ondansetron Inj 4 Mg/2 Ml Vial IV PUSH Q4H PRN Nausea Sodium Chloride 10 ml 01/28/25 14:00 02/01/25 14:18 Central Line Flush IV PUSH 10 ml Q8HR TATYANA Administration Sodium Chloride 20 ml 01/28/25 06:37 Central Line Flush IV PUSH PRN PRN after blood draws Radiology Results: ITS Impressions Abdomen/Pelvis CTA 01/28/25 00:08 IMPRESSION: Findings within the liver for which malignancy is suspected. Additional findings within the rectum for which acute hemorrhage is suspected (likely secondary to anorectal varices). No findings to suggest upper GI bleeding. 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 Incidental notation is made of cholelithiasis. Head CT 01/28/25 11:51 Impression: No significant abnormality seen. Abdomen X-Ray 01/28/25 13:57 IMPRESSION: 1. Nasogastric tube in stomach. Chest X-Ray 02/01/25 07:31 IMPRESSION: 1. Small lung volumes and persistent opacities in bilateral lower lung zones, decreased on the left, which could represent atelectasis or pneumonia. Labs Labs: Laboratory Results - last 24 hr 01/31/25 01/31/25 02/01/25 18:33 22:59 05:04 WBC RBC Hgb Hct MCV MCH MCHC RDW Plt Count MPV % Immature Plt Fraction PT 18.1 H INR 1.5 Puncture Site ABG pH ABG pCO2 ABG pO2 ABG PO2/FiO2 Ratio ABG HCO3 ABG O2 Saturation ABG O2 Content ABG Base Excess A-a Gradient Oxyhemoglobin Carboxyhemoglobin Methemoglobin Reduced Hemoglobin Total Hemoglobin O2 Delivery Device O2 Liters/Min Minute Volume Vent Rate Vent Mode FiO2 Tidal Volume PEEP Peak Inspir Pressure Pressure Support Sodium 142 Potassium 4.0 Chloride 111 H Carbon Dioxide 25 Anion Gap 6 BUN 52 H D Creatinine 1.05 H Estim Creat Clear Calc 80 Estimated GFR 53 L Glucose 125 H POC Capillary Glucose 122 H 139 H Lactic Acid 1.3 Calcium 9.5 Phosphorus 2.8 Magnesium 1.9 Total Bilirubin 3.6 H AST 196 H ALT 57 H Alkaline Phosphatase 79 Ammonia C-Reactive Protein 8.5 H Total Protein 6.2 L Albumin 2.9 L 02/01/25 02/01/25 02/01/25 05:07 07:13 11:40 WBC 8.1 RBC 2.98 L Hgb 10.1 L Hct 30.9 L MCV 103.7 H D MCH 33.9 MCHC 32.7 RDW 22.5 H Plt Count 101 L MPV 10.3 % Immature Plt Fraction 3.4 PT INR Puncture Site Left radial ABG pH 7.454 H ABG pCO2 37.2 ABG pO2 68.9 L ABG PO2/FiO2 Ratio 1.97 ABG HCO3 25.5 ABG O2 Saturation 94.7 L ABG O2 Content 14.2 L ABG Base Excess 1.7 A-a Gradient 137.4 Oxyhemoglobin 92.4 Carboxyhemoglobin 0.8 Methemoglobin 0.3 Reduced Hemoglobin 6.5 H Total Hemoglobin 10.9 L O2 Delivery Device Ventilator O2 Liters/Min Not Reportable Minute Volume Not Reportable Vent Rate 16 Vent Mode Cmv FiO2 35 Tidal Volume 400 PEEP 8 Peak Inspir Pressure Not Reportable Pressure Support Not Reportable Sodium Potassium Chloride Carbon Dioxide Anion Gap BUN Creatinine Estim Creat Clear Calc Estimated GFR Glucose POC Capillary Glucose 116 H Lactic Acid Calcium Phosphorus Magnesium Total Bilirubin AST ALT Alkaline Phosphatase Ammonia 10 C-Reactive Protein Total Protein Albumin Quality VTE Prophylaxis VTE prophylaxis: mechanical ordered
[2025-02-01] MEDS: dexmedeTOMIDine 400 MCG/100 ML 400 MCG/100 ML BAG 33 MCG IV CONT (20:58)
[2025-02-01] MEDS: dexmedeTOMIDine 400 MCG/100 ML 400 MCG/100 ML BAG 49.5 MCG IV CONT (22:58)
[2025-02-02] VITALS (57 sets, daily range): BP systolic 81–146; BP diastolic 51–77; PULSE 48–74; RESP 14–32; TEMP 35.2–37.2; O2SAT 23–95
[2025-02-02] MEDS: dexmedeTOMIDine 400 MCG/100 ML 400 MCG/100 ML BAG 45.38 MCG IV CONT ×3 (00:58→05:40)
[2025-02-02] MEDS: ACETYLCYSTEINE 20% INHAL SOLN 800 MG/4 ML VIAL 200 MG INHALATION ×4 (02:07→19:17)
[2025-02-02] MEDS: IPRATROPIUM 0.5 MG/ALBUTEROL SULFATE 2.5 MG AMPUL.NEB 3 ML INHALATION ×4 (02:07→19:17)
[2025-02-02 05:12] LABS: Alveolar/Arterial O2 Gradient 142.1 mmHg; Carboxyhemoglobin 0.7 % THb (0-2.0); Fractional Inspired Oxygen 35 %; HCO3 ABG 21.5 mEq/l (22.0-26.0); Methemoglobin ABG 0.1 %THb (0-1.5); Oxygen Content ABG 15.2 %vol (16.0-22.0); Oxygen Saturation ABG 94.4 % (95.0-100.0); PCO2 ABG 33.3 mmHg (35.0-45.0); PO2 ABG 68.7 mmHg (80.0-100.0); PO2 FiO2 Ratio Arterial Blood 1.96 %; Reduced Hemoglobin 7.1 %THb (0-5.0)
[2025-02-02 05:14] LABS: Modified Allen's Test Pass; Site Drawn LEFT RADIAL
[2025-02-02 05:15] LABS: Arterial Blood Gas Tidal Volume 400 ml; Arterial Blood Gas Ventilator rate 16 /MIN
[2025-02-02] MEDS: CENTRAL LINE FLUSH 10 ML IV PUSH ×3 (05:47→21:18)
[2025-02-02 06:03] LABS: Hematocrit 32.4 % (37.0-47.0); Hemoglobin 10.4 g/dL (12.0-15.0); Immature Granulocyte Percent A 0.8 % (0-0.5); Immature Platelet Fraction Pct 3.7 % (0.9-11.2); Lymphocytes Absolute Auto 1.09 K/mm3 (0.9-3.2); Mean Corpuscular HGB Conc 32.1 g/dl (32-36); Mean Corpuscular Hemoglobin 34.3 pg (26-34); Mean Corpuscular Volume 106.9 fl (80-100); Nucleated Red Blood Cells Absolute Auto 0.000 K/mm3 (0.0-0.012); Nucleated Red Blood Cells Perc 0.0 % (0.0-0.2); Platelet Count Result 105 k/mm3 (150-375); Red Blood Count 3.03 M/mm3 (4.2-5.4); White Blood Count 10.2 K/mm3 (4.5-10.0)
[2025-02-02 06:07] LABS: Ammonia < 9 umol/L (9-30)
[2025-02-02 06:08] LABS: INR 1.6; Prothrombin Time 19.1 Seconds (11.1-14.7)
[2025-02-02 06:09] LABS: Partial Thromboplastin Time 28.6 Seconds (22.3-36.8)
[2025-02-02 06:25] LABS: Alanine Aminotransferase 57 U/L (6-35); Albumin Level 2.9 g/dL (3.5-5.1); Alkaline Phosphatase 87 U/L (38-126); Anion Gap 7 mmol/L (4-12); Aspartate Amino Transferase 201 U/L (14-36); Bilirubin,Total 4.5 mg/dL (0.2-1.3); Blood Urea Nitrogen 49 mg/dL (7-17); Calcium 9.5 mg/dL (8.4-10.2); Carbon Dioxide 23 mmol/L (22-30); Chloride 113 mmol/L (98-107); Estimated CRCL calculation 80 ml/min; Estimated Glomerular Filt Rate 54; Glucose 142 mg/dL (65-110); Magnesium 2.0 mg/dL (1.6-2.3); Potassium 4.1 mmol/L (3.4-5.0); Sodium 143 mmol/L (137-145); Total Protein 6.3 g/dL (6.3-8.2)
[2025-02-02 07:03] LABS: Macrocytosis 1+ (NORMAL); Schistocytes None Seen
[2025-02-02] MEDS: DORNASE ALFA INH SOLN 1 MG/ML 2.5 ML AMP 2.5 MG INHALATION ×2 (07:59→19:18)
[2025-02-02] MEDS: dexmedeTOMIDine 400 MCG/100 ML 400 MCG/100 ML BAG 33 MCG IV CONT (08:01)
[2025-02-02] MEDS: ALBUMIN HUMAN 25% 25 GM/100 ML 100 ML IVPB ×4 (08:11→23:34)
[2025-02-02] MEDS: LACTATED RINGERS 500 ML IV CONT (08:11)
[2025-02-02] MEDS: MINERAL OIL/WHITE PETROLATUM OINTMENT 1 APPLIC EACH EYE ×2 (08:11→21:17)
[2025-02-02] MEDS: VANCOMYCIN 1,250 MG/NS 250 ML 1,250 MG/250 ML BAG 166.67 MG IVPB ×2 (09:41)
[2025-02-02] MEDS: CEFEPIME 2 GM in SODIUM CHLORIDE 0.9% IV 50 ML 100 ML IVPB ×3 (09:41→21:17)
[2025-02-02 10:03] LABS: MRSA (PCR) DETECTED (NOT DETECTE)
[2025-02-02] MEDS: OCTREOTIDE ACETATE 500 MCG in SODIUM CHLORIDE 0.9% IV 99 ML 10 MCG IV CONT (10:57)
--- NOTE | 2025-02-02 11:31 | PCNFU ---
Nutrition Follow-Up Complete: Suboptimal Energy Intake as related to mechanical intubation as evidenced by NPO. Goal: Meet estimated nutritional needs Patient has limited progress. We will continue current goal. Pt current nutrition is TPN at 40 ml/hr. Last recorded weight is 160.7 kg, up from 155.1 kg on admit. Bowel Motility: Last reported BM 01/31 Labs Reviewed:Glu 142, BUN 49, Cr 1.04, Hct 32.4, Hgb 10.4 Meds Noted: Precedex, Clinimix 5/15 at 40 ml/hr with 250 ml of 20% Lipid Emulsion. Skin: WNL Additional Notes: Patient remains NPO> 6 days. Discussed nutrition with Orthopedic Coder today. Recommending TPN at 40 ml/hr. Total Nutrition: 1182 kcal/48 gm protein. Will monitor weight, labs, skin, diet orders, meds every Sunday and Sunday.
[2025-02-02] MEDS: dexmedeTOMIDine 400 MCG/100 ML 400 MCG/100 ML BAG 16.5 MCG IV CONT (11:35)
--- NOTE | 2025-02-02 12:43 | P.PNINT_ITS ---
Progress Note: A&P Assessment and Plan (1) Hemorrhagic shock: Code(s): R57.8 - Other shock Status: Acute Assessment and Plan: Pt presented with rectal bleed, CT showed esophageal and rectal varices. -Transfused 2 units unmatched PRBC in the ER -hemoglobin this morning is 9.3, platelets 186 -01/28: INR 1.6, will give vitamin K -01/28: Transfused 1 unit of FFP and 1 unit of packed RBC -01/30: 1 unit of FFP and 1 unit of packed RBCs were transfused -patient adequately fluid-resuscitated -OFF pressors at this, maintain MAP > 65 mmHg or SBP > 100 mmHg for adequate end organ perfusion -01/29: Hb 7.3, INR 1.8 this morning. Transfused 1 unit of FFP and 1 unit of packed RBC, will also repeat vitamin K IVPB -01/30: Hemoglobin remained stable, decreased NG output. Discussed with GI, will continue octreotide. Discontinued Protonix infusion and IV Protonix -01/31: Hemoglobin is 9.7 this morning and stable, NG was removed 01/30 with EGD. Will continue octreotide per GI -02/01: Hemoglobin 10.1 this morning in stable, patient remains on octreotide infusion -04/04: Hemoglobin 10.4 and stable, patient remains on octreotide infusion per GI 01/28: CTA scan of the abdomen and pelvis: Findings within the liver for which malignancy is suspected. Additional findings within the rectum for which acute hemorrhage is suspected (likely secondary to anorectal varices). No findings to suggest upper GI bleeding. 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 Incidental notation is made of cholelithiasis. (2) Esophageal varices: Qualifiers: Esophageal varices bleeding: with bleeding Esophageal varices type: unspecified type Qualified Code(s): I85.01 - Esophageal varices with bleeding Code(s): I85.00 - Esophageal varices without bleeding Status: Acute Assessment and Plan: Esophageal varices as seen on CTA abdomen and pelvis. -appreciate GI evaluation -01/28: EGD: Showed actively bleeding gastric varix at the gastric cardia, a band ligation device was used to place 1 band, moderate gastritis was seen in the stomach. The gastric has a moderate portal hypertensive change. Large amount of blood was seen in the distal esophagus and the stomach the bowel and the 2nd portion of duodenum was normal with no ulcers or masses 01/30: Repeat EGD: Showed medium grade 3 varices (large varices almost occluding the esophageal lumen were present in the distal esophagus. There was no evidence of bleeding bleeding corresponding to the previous band. To more bands were placed. There was a large fundal pool of blood in the stomach. The bulb and the 2nd portion of duodenum was normal Appreciate GI following the patient, discussed with GI, will continue octreotide infusion per GI - drainage in the FMS has also slowed down, patient is not have an NG tube any more (3) Rectal varices: Code(s): K64.9 - Unspecified hemorrhoids Status: Acute Assessment and Plan: Likely related to alcoholic cirrhosis, (4) Alcoholic cirrhosis of liver with ascites: Code(s): K70.31 - Alcoholic cirrhosis of liver with ascites Status: Acute Assessment and Plan: History of alcoholic cirrhosis -LFTs and bilirubin elevated but stable -could be related to shock liver, cirrhosis, bleeding -continue ceftriaxone (01/28) for SBP prophylaxis -continue to monitor LFTs and bilirubin -INR elevated, status post vitamin K and FFP, INR is stable at 1.5 -continue to monitor (5) Airway compromise: Code(s): J98.8 - Other specified respiratory disorders Status: Acute Assessment and Plan: Patient encephalopathic with elevated ammonia level, not protecting her airway, also intubated for aspiration prevention and for EGD -01/28: Intubated patient for airway protection due to encephalopathy -currently on CMV mode of ventilation, peep of 5 and 35% FiO2 -chest x-ray and ABGs reviewed, maintain O2 sats > 92% -sedated with Precedex infusion, will have bedside RN discontinue Precedex and try to wake up patient. When she is more awake will place her on SBT and evaluate for extubation 02/01: Patient continues to have thick ETT secretions, added Pulmozyme and Mucomyst nebulizer 02/02: Patient spiked fevers, continues to have thick ETT secretions, borderline blood pressure, started patient on cefepime and vancomycin (02/02) 02/02: Blood cultures and sputum cultures have been ordered (6) Acute kidney injury: Code(s): N17.9 - Acute kidney failure, unspecified Status: Acute Assessment and Plan: Acute kidney injury, likely related to hemorrhagic shock -low urine output, creatinine and BUN improving -off pressors, blood pressures remained stable, will allow higher MAP, for adequate end organ perfusion -continue to monitor urine output, renal function electrolytes (7) Encephalopathy: Code(s): G93.40 - Encephalopathy, unspecified Status: Acute Assessment and Plan: Likely related to hyperammonemia -patient did receive lactulose enema on 01/31/2025, good bowel movements x2 Ammonia levels have normal Continue to monitor -anisocoria, CT scan of the brain 01/28/2025 with no significant abnormality seen -continues to be encephalopathic will repeat CT brain now that ammonia levels and electrolytes are all within normal limits -consult neurology (8) Abnormal CT of liver: Code(s): R93.2 - Abnormal findings on diagnostic imaging of liver and biliary tract Status: Acute Assessment and Plan: CT abdomen and pelvis as above: Suspicious for malignancy -AFP significantly elevated to 83,546 (0.0-9.2) -GI is following the patient: Recommended may need MRI liver protocol when more stable and extubated Plan DVT prophylaxis: SCDs, no chemoprophylaxis due to hemorrhagic shock and GI bleed Stress ulcer prophylaxis: None at this time according to GI Nutrition: NPO Code Status: DNR Critical Care Time Spent: 34 minutes 02/01: Discussed at length with patient's sister Jinny, she wants to be the decision maker, amanda Cooper from care coordination discussed with Jinny and patient's daughter Modesta. Modesta agreed the Jinny to be the surrogate decision maker. They also agree to make her a do not resuscitate, orders for DNR when placed in the chart. I answered all the questions 01/31: Discussed with Modesta Stearns, patient's daughter at [phone], updated the daughter with patient's condition from the time she came to the hospital until today. She is aware that patient is not waking up despite being off sedation likely related to hepatic encephalopathy. I updated her with the repeat EGD that was done yesterday and that the patient has received multiple blood products. I also discussed with her code status to which the daughter stated she wanted her to be a full code. She did not have any other questions. 01/30: Discussed with Jinny Cabezas, patient's sister and updated her with patient's condition and plan of care. She stated that the patient has a daughter with anemia of Modesta Stearns, she was supposed to contact the daughter and I asked to give me a call. Will try to locate daughter's number and will give her a call and explain to her patient's condition/situation and recommendations of the storage facility housekeeper. Due to a high probability of clinically significant, life threatening deterioration, the patient required my highest level of preparedness to intervene emergently and I personally spent this critical care time directly and personally managing the patient. This critical care time included obtaining a history; examining the patient; pulse oximetry; ordering and review of studies; arranging urgent treatment with development of a management plan; evaluation of patient's response to treatment; frequent reassessment; and discussions with other providers. It was exclusive of separately billable procedures and treating other patients and teaching time. Please see Assessment and Plan section and the rest of the note for further information on patient assessment and treatment This dictation may have been done utilizing a voice recognition system. Attempts have been made to correct errors. However, there may be uncorrected grammatical, spelling, and recognitions errors present. Subjective Date/time seen: 02/02/25 12:43 Interval history: Reason for consult: GI bleed, Esophageal and rectal varices, shock, altered mental status, anisocoria, unable to protect her airway, intubated and on mechanical ventilator, hyperkalemia, acute renal failure, elevated LFTs 01/28: EGD: Showed actively bleeding gastric varix at the gastric cardia, a ban d ligation device was used to place 1 band, moderate gastritis was seen in the stomach. The gastric has a moderate portal hypertensive change. Large amount of blood was seen in the distal esophagus and the stomach the bowel and the 2nd portion of duodenum was normal with no ulcers or masses 01/30: Repeat EGD: Showed medium grade 3 varices (large varices almost occludi ng the esophageal lumen were present in the distal esophagus. There was no evidence of bleeding bleeding corresponding to the previous band. To more bands were placed. There was a large fundal pool of blood in the stomach. The bulb and the 2nd portion of duodenum was normal 02/02/2025: Patient seen and examined the ICU, remains intubated on CMV mode of ventilation, peep of 8, 35% FiO2. Tolerated ASV mode of ventilation all day yesterday. Continues to have thick secretions. Febrile with a T-max of 101.1?. Remains on Precedex infusion. Patient has had a adequate urine output. Hemodynamically stable, FMS was removed, ammonia is within normal limits. Hemoglobin is stable at 10.4 Patient opens her eyes does not track or follow commands. Review of Systems Review of Systems: ROS unobtainable: Yes unobtainable due to endotracheal tube, unobtainable due to medical condition and unobtainable due to mental status Exam Narrative: General: Patient is intubated and sedated in no acute distress HEENT:? Pupils unequal, R>L, but reactive, sclera is icteric Neck:? supple Respiratory:? Coarse breath sounds bilaterally, decreased at bases, diffuse wheezing Cardiac:? S1 S2 normal, regular rate and rhythm Abdomen:? soft, nontender, non distended, morbidly obese, hypoactive bowel sounds Extremities:?b/l edema of lower extremities, palpable pedal pulses Neuro:? Patient is intubated, sedated, opens her eyes to name, does not track or follow simple commands.. For withdraws to pain stimulus. Patient is moving all her extremities spontaneously and nonpurposeful Skin:? Feet are warm today Psych:? unable to assess Objective Data Vital Signs Vital Signs: Vital Signs - 24 hr 02/01/25 14:00 02/01/25 14:00 02/01/25 14:00 Temperature 100.4 F H Pulse Rate 66 66 66 Respiratory Rate 14 14 Blood Pressure 119/66 119/66 Pulse Oximetry 95 Oxygen Delivery Fraction of Inspired Oxygen 02/01/25 14:00 02/01/25 14:17 02/01/25 14:17 Temperature Pulse Rate 66 64 64 Respiratory Rate 20 20 Blood Pressure Pulse Oximetry Oxygen Delivery Fraction of Inspired Oxygen 02/01/25 14:28 02/01/25 14:40 02/01/25 14:42 Temperature Pulse Rate 69 76 69 Respiratory Rate 22 H 28 H Blood Pressure Pulse Oximetry 93 Oxygen Delivery Mechanical Ventilation Fraction of Inspired Oxygen 35 02/01/25 15:42 02/01/25 15:42 02/01/25 16:00 Temperature 100.7 F H 100.8 F H Pulse Rate 70 72 Respiratory Rate 25 H 20 Blood Pressure 116/66 Pulse Oximetry 97 Oxygen Delivery Fraction of Inspired Oxygen 02/01/25 16:00 02/01/25 16:00 02/01/25 16:00 Temperature Pulse Rate 70 70 Respiratory Rate 18 19 Blood Pressure Pulse Oximetry 97 Oxygen Delivery Mechanical Ventilation Fraction of Inspired Oxygen 35 35 02/01/25 16:00 02/01/25 16:42 02/01/25 17:17 Temperature 100.8 F H Pulse Rate 70 74 Respiratory Rate Blood Pressure Pulse Oximetry 93 Oxygen Delivery Mechanical Ventilation Fraction of Inspired Oxygen 35 02/01/25 17:20 02/01/25 17:22 02/01/25 18:00 Temperature Pulse Rate 73 66 Respiratory Rate Blood Pressure Pulse Oximetry 97 Oxygen Delivery Mechanical Ventilation Fraction of Inspired Oxygen 35 35 02/01/25 18:00 02/01/25 18:02 02/01/25 20:00 Temperature 101.0 F H 100.5 F H Pulse Rate 69 69 55 L Respiratory Rate 23 H 20 18 Blood Pressure 123/68 103/61 Pulse Oximetry 98 92 Oxygen Delivery Fraction of Inspired Oxygen 02/01/25 20:00 02/01/25 20:00 02/01/25 20:00 Temperature Pulse Rate 63 Respiratory Rate 18 Blood Pressure Pulse Oximetry Oxygen Delivery Mechanical Ventilation Fraction of Inspired Oxygen 35 35 02/01/25 20:00 02/01/25 20:43 02/01/25 20:58 Temperature Pulse Rate 55 L 67 63 Respiratory Rate 24 H 23 H Blood Pressure Pulse Oximetry Oxygen Delivery Fraction of Inspired Oxygen 02/01/25 20:58 02/01/25 21:10 02/01/25 21:16 Temperature Pulse Rate 63 67 67 Respiratory Rate 23 H 24 H Blood Pressure Pulse Oximetry 92 Oxygen Delivery Mechanical Ventilation Fraction of Inspired Oxygen 35 02/01/25 21:20 02/01/25 21:50 02/01/25 22:00 Temperature Pulse Rate 66 63 64 Respiratory Rate 23 H 20 Blood Pressure Pulse Oximetry Oxygen Delivery Fraction of Inspired Oxygen 02/01/25 22:00 02/01/25 22:00 02/01/25 22:58 Temperature 99.9 F H Pulse Rate 64 64 61 Respiratory Rate 22 H 22 H 21 H Blood Pressure 99/60 L Pulse Oximetry 91 Oxygen Delivery Fraction of Inspired Oxygen 02/01/25 22:58 02/02/25 00:00 02/02/25 00:00 Temperature Pulse Rate 61 58 L 57 L Respiratory Rate 21 H 16 Blood Pressure Pulse Oximetry Oxygen Delivery Fraction of Inspired Oxygen 02/02/25 00:00 02/02/25 00:00 02/02/25 00:00 Temperature 98.8 F Pulse Rate 58 L Respiratory Rate 16 Blood Pressure 108/69 Pulse Oximetry 92 Oxygen Delivery Mechanical Ventilation Fraction of Inspired Oxygen 35 35 02/02/25 00:58 02/02/25 00:58 02/02/25 02:00 Temperature Pulse Rate 55 L 55 L 52 L Respiratory Rate 16 16 Blood Pressure Pulse Oximetry Oxygen Delivery Fraction of Inspired Oxygen 02/02/25 02:00 02/02/25 02:01 02/02/25 02:08 Temperature 98.0 F Pulse Rate 52 L 52 L 53 L Respiratory Rate 16 16 25 H Blood Pressure 103/68 Pulse Oximetry 93 Oxygen Delivery Fraction of Inspired Oxygen 02/02/25 02:14 02/02/25 02:22 02/02/25 03:14 Temperature Pulse Rate 52 L 53 L 57 L Respiratory Rate 25 H 18 Blood Pressure Pulse Oximetry 91 Oxygen Delivery Mechanical Ventilation Fraction of Inspired Oxygen 35 02/02/25 03:14 02/02/25 04:00 02/02/25 04:00 Temperature Pulse Rate 57 L 54 L Respiratory Rate 18 17 Blood Pressure Pulse Oximetry Oxygen Delivery Mechanical Ventilation Fraction of Inspired Oxygen 35 02/02/25 04:00 02/02/25 04:00 02/02/25 04:00 Temperature 96.9 F L Pulse Rate 54 L 54 L Respiratory Rate 17 Blood Pressure 98/64 L Pulse Oximetry 90 Oxygen Delivery Fraction of Inspired Oxygen 35 02/02/25 05:00 02/02/25 05:40 02/02/25 05:40 Temperature Pulse Rate 57 L 49 L 49 L Respiratory Rate 16 16 Blood Pressure Pulse Oximetry 91 Oxygen Delivery Mechanical Ventilation Fraction of Inspired Oxygen 35 02/02/25 06:00 02/02/25 06:00 02/02/25 06:00 Temperature 96.1 F L Pulse Rate 50 L 50 L 50 L Respiratory Rate 17 17 Blood Pressure 91/63 L Pulse Oximetry 93 Oxygen Delivery Fraction of Inspired Oxygen 02/02/25 06:33 02/02/25 07:59 02/02/25 08:00 Temperature Pulse Rate 49 L 49 L 49 L Respiratory Rate 14 17 Blood Pressure Pulse Oximetry 91 Oxygen Delivery Mechanical Ventilation Fraction of Inspired Oxygen 35 02/02/25 08:00 02/02/25 08:00 02/02/25 08:00 Temperature 95.5 F L Pulse Rate 48 L 49 L Respiratory Rate 16 17 Blood Pressure 97/65 L Pulse Oximetry 90 90 Oxygen Delivery Mechanical Ventilation Fraction of Inspired Oxygen 35 35 02/02/25 08:01 02/02/25 08:01 02/02/25 08:14 Temperature Pulse Rate 48 L 48 L 49 L Respiratory Rate 18 18 17 Blood Pressure Pulse Oximetry Oxygen Delivery Fraction of Inspired Oxygen 02/02/25 09:41 02/02/25 10:00 02/02/25 10:00 Temperature 95.4 F L Pulse Rate 56 L 55 L 55 L Respiratory Rate 18 22 H 17 Blood Pressure 98/65 L Pulse Oximetry 90 Oxygen Delivery Fraction of Inspired Oxygen 02/02/25 10:00 02/02/25 10:15 02/02/25 10:30 Temperature 95.4 F L 95.4 F L 95.5 F L Pulse Rate Respiratory Rate Blood Pressure Pulse Oximetry Oxygen Delivery Fraction of Inspired Oxygen 02/02/25 10:45 02/02/25 11:02 02/02/25 11:30 Temperature 95.7 F L 95.9 F L 96.5 F L Pulse Rate Respiratory Rate Blood Pressure Pulse Oximetry Oxygen Delivery Fraction of Inspired Oxygen 02/02/25 11:35 02/02/25 11:35 02/02/25 12:00 Temperature 96.8 F L Pulse Rate 54 L 54 L 54 L Respiratory Rate 16 16 20 Blood Pressure 91/59 L Pulse Oximetry 93 Oxygen Delivery Fraction of Inspired Oxygen 02/02/25 12:00 02/02/25 12:01 02/02/25 12:31 Temperature 97.0 F L 97.1 F L Pulse Rate 55 L Respiratory Rate 18 Blood Pressure Pulse Oximetry Oxygen Delivery Fraction of Inspired Oxygen 02/02/25 12:37 Temperature 97.1 F L Pulse Rate Respiratory Rate Blood Pressure Pulse Oximetry Oxygen Delivery Fraction of Inspired Oxygen Intake/Output Intake/Output: Intake & Output 01/30/25 01/31/25 02/01/25 02/02/25 23:59 23:59 23:59 23:59 Intake Total 1964.4 533.5 780.8 1186.4 Output Total 2900 1800 1050 400 Balance -935.6 -1266.5 -269.2 786.4 Meds/Results Medications: Active Medications Generic Name Dose Route Start Last Admin Trade Name Freq PRN Reason Stop Dose Admin Acetaminophen 650 mg 02/01/25 14:06 02/01/25 15:42 Acetaminophen 650 Mg Suppository RECTAL 650 mg Q6H PRN Administration Mild Pain (1-3) or Fever Acetylcysteine 200 mg 02/01/25 14:00 02/02/25 07:58 Acetylcysteine 20% Inhal Soln 800 Mg/4 Ml Vial INHALATION 200 mg Q6HRT TATYANA Administration Albuterol/Ipratropium 3 ml 01/30/25 14:00 02/02/25 07:59 Ipratropium 0.5 Mg/Albuterol Sulfate 2.5 Mg Ampul.Neb 3 Ml INHALATION 3 ml Q6HRT TATYANA Administration Alteplase, Recombinant 2 mg 02/02/25 10:10 Alteplase 2 Mg Vial (Cathflo) IV PUSH ONCE PRN Line Occlusion Dextrose 12.5 gm 02/02/25 10:13 Dextrose 50% 25 Gm/50 Ml Syringe IV PUSH PRN PRN Hypoglycemia Protocol Dornase Hari 2.5 mg 02/01/25 11:30 02/02/25 07:59 Dornase Hari Inh Soln 1 Mg/Ml 2.5 Ml Amp INHALATION 02/03/25 08:01 2.5 mg Q12HRT TATYANA Administration Glucagon 1 mg 02/02/25 10:13 Glucagon For Inj 1 Mg Vial IM PRN PRN Hypoglycemia Protocol Glucose 15 gm 02/02/25 10:13 Glucose Oral Gel 15 Gm Of Glucse In 37.5 Gm Tube PO PRN PRN Hypoglycemia Protocol Octreotide Acetate 500 mcg/ 100 mls @ 10 mls/hr 01/27/25 22:00 02/02/25 10:57 Sodium Chloride IV CONT 50 mcg/hr .Q10H TATYANA 10 mls/hr Administration 50 MCG/HR Dexmedetomidine HCl 400 mcg in 100 mls @ 16.5 mls/hr 01/30/25 10:30 02/02/25 12:00 Precedex 400 Mcg/100 Ml IV CONT 0.4 mcg/kg/hr .Q6H4M TATYANA 16.5 mls/hr Titration Protocol 0.4 MCG/KG/HR Albumin Human 100 mls @ 60 mls/hr 02/02/25 07:27 02/02/25 11:36 Albutein IVPB 02/03/25 01:39 60 mls/hr Q6HR TATYANA Administration Cefepime HCl 2 gm/ Sodium 50 mls @ 100 mls/hr 02/02/25 08:00 02/02/25 10:57 Chloride IVPB Infused Q8HR TATYANA Infusion Vancomycin HCl 1,500 mg in 500 mls @ 250 mls/hr 02/02/25 21:00 Vancomycin 1,500 Mg/Ns 500 Ml IVPB Q12H TATYANA Multivitamins 1.25 ml/ 1,002.5 mls @ 40 mls/hr 02/02/25 14:00 Multivitamins 1.25 ml/ Amino IV CONT Acids/Dextrose .Q24H TATYANA Protocol Dextrose 1,000 mls @ 50 mls/hr 02/02/25 10:12 Dextrose 10% IV CONT .Q20H PRN if PN is interrupted Fat Emulsion Intravenous 250 mls @ 20.833 mls/hr 02/02/25 14:00 Lipids 20% IVPB Q24H TATYANA Dextrose 1,000 mls @ 100 mls/hr 02/02/25 10:13 Dextrose 5% 1,000 Ml IVPB PRN PRN Hypoglycemia Protocol Insulin Aspart 2 - 5 units 02/02/25 12:00 02/02/25 11:36 Insulin Aspart (*Bkc) 100 Units/Ml SUB-Q Not Given Q6HR [facility] Protocol Multi-Ingred Cream/Lotion/Oil/Oint 1 applic 01/28/25 09:15 02/02/25 08:11 Mineral Oil/White Petrolatum Ointment EACH EYE 1 applic Q12HR TATYANA Administration Ondansetron HCl 4 mg 01/28/25 01:51 Ondansetron Inj 4 Mg/2 Ml Vial IV PUSH Q4H PRN Nausea Sodium Chloride 10 ml 01/28/25 14:00 02/02/25 05:47 Central Line Flush IV PUSH 10 ml Q8HR TATYANA Administration Sodium Chloride 20 ml 01/28/25 06:37 Central Line Flush IV PUSH PRN PRN after blood draws Radiology Results: ITS Impressions Abdomen/Pelvis CTA 01/28/25 00:08 IMPRESSION: Findings within the liver for which malignancy is suspected. Additional findings within the rectum for which acute hemorrhage is suspected (likely secondary to anorectal varices). No findings to suggest upper GI bleeding. 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 Incidental notation is made of cholelithiasis. Head CT 01/28/25 11:51 Impression: No significant abnormality seen. Abdomen X-Ray 01/28/25 13:57 IMPRESSION: 1. Nasogastric tube in stomach. Chest X-Ray 02/02/25 06:13 Impression: 1: No significant change to bilateral airspace disease, compatible with edema. Labs Labs: Laboratory Results - last 24 hr 02/01/25 02/01/25 02/02/25 17:57 23:37 05:05 WBC RBC Hgb Hct MCV MCH MCHC RDW Plt Count MPV Immature Gran % (Auto) Neut % (Auto) Lymph % (Auto) [place] % (Auto) Eos % (Auto) Baso % (Auto) Lymph # (Auto) [place] # (Auto) Eos # (Auto) Baso # (Auto) Abs Immat Gran (auto) Absolute Neuts (auto) Absolute Nucleated RBC Band Neutrophils % Nucleated RBC % Platelet Estimate % Immature Plt Fraction Macrocytosis Schistocytes PT INR APTT Puncture Site Left radial ABG pH 7.427 ABG pCO2 33.3 L ABG pO2 68.7 L ABG PO2/FiO2 Ratio 1.96 ABG HCO3 21.5 L ABG O2 Saturation 94.4 L ABG O2 Content 15.2 L ABG Base Excess -2.2 A-a Gradient 142.1 Oxyhemoglobin 92.1 Carboxyhemoglobin 0.7 Methemoglobin 0.1 Reduced Hemoglobin 7.1 H Total Hemoglobin 11.7 L O2 Delivery Device Ventilator O2 Liters/Min Not Reportable Minute Volume Not Reportable Vent Rate 16 Vent Mode Cmv FiO2 35 Tidal Volume 400 PEEP 8 Peak Inspir Pressure Not Reportable Pressure Support Not Reportable Sodium Potassium Chloride Carbon Dioxide Anion Gap BUN Creatinine Estim Creat Clear Calc Estimated GFR Glucose POC Capillary Glucose 122 H 136 H Calcium Phosphorus Magnesium Total Bilirubin AST ALT Alkaline Phosphatase Ammonia Total Protein Albumin Nasal MRSA (PCR) 02/02/25 02/02/25 02/02/25 05:51 08:18 11:07 WBC 10.2 H RBC 3.03 L Hgb 10.4 L Hct 32.4 L MCV 106.9 H MCH 34.3 H MCHC 32.1 RDW 22.5 H Plt Count 105 L MPV 10.4 Immature Gran % (Auto) 0.8 H Neut % (Auto) 80.8 H Lymph % (Auto) 10.6 L [place] % (Auto) 7.5 Eos % (Auto) 0.0 Baso % (Auto) 0.3 Lymph # (Auto) 1.09 [place] # (Auto) 0.8 H Eos # (Auto) 0.0 Baso # (Auto) 0.0 Abs Immat Gran (auto) 0.08 H Absolute Neuts (auto) 8.3 H Absolute Nucleated RBC 0.000 Band Neutrophils % Not Reportable Nucleated RBC % 0.0 Platelet Estimate Decreased % Immature Plt Fraction 3.7 Macrocytosis 1+ Schistocytes None seen PT 19.1 H INR 1.6 APTT 28.6 Puncture Site ABG pH ABG pCO2 ABG pO2 ABG PO2/FiO2 Ratio ABG HCO3 ABG O2 Saturation ABG O2 Content ABG Base Excess A-a Gradient Oxyhemoglobin Carboxyhemoglobin Methemoglobin Reduced Hemoglobin Total Hemoglobin O2 Delivery Device O2 Liters/Min Minute Volume Vent Rate Vent Mode FiO2 Tidal Volume PEEP Peak Inspir Pressure Pressure Support Sodium 143 Potassium 4.1 Chloride 113 H Carbon Dioxide 23 Anion Gap 7 BUN 49 H Creatinine 1.04 H Estim Creat Clear Calc 80 Estimated GFR 54 L Glucose 142 H POC Capillary Glucose 133 H Calcium 9.5 Phosphorus 3.6 Magnesium 2.0 Total Bilirubin 4.5 H AST 201 H ALT 57 H Alkaline Phosphatase 87 Ammonia < 9 L Total Protein 6.3 Albumin 2.9 L Nasal MRSA (PCR) Detected A*
--- NOTE | 2025-02-02 14:01 | P.CONNEU_ITS ---
Assessment and Plan Assessment and plan (1) Encephalopathy: Qualifiers: Encephalopathy type: metabolic Qualified Code(s): G93.41 - Metabolic encephalopathy Code(s): G93.40 - Encephalopathy, unspecified Status: Acute (2) Alcoholic cirrhosis of liver with ascites: Code(s): K70.31 - Alcoholic cirrhosis of liver with ascites Status: Acute (3) Esophageal varices: Code(s): I85.00 - Esophageal varices without bleeding Status: Acute Plan Comatose status with information as mentioned above and with negative CT scan of the head for the bleed or hydrocephalus will obtain the EEG to evaluate the mental status for further recommendations. Consult date: 02/02/25 HPI: Ulysses Salazar is a 64 year old female Admitted to the hospital from the emergency [facility] for the complaints of GI bleed. She complained of epigastric abdominal pain at the facility where when they got the patient up to giving the shower they noted active bleeding from the rectum 30minutes prior to the arrival. Patient has had a similar episodes several years ago. She reported her last colonoscopy was done in 2010 but she was not sure what the results were. Patient is known to have cirrhosis of the liver diagnosed by CT imaging with evidence of portal hypertension in February 2024 in addition she also admitted to remote history of alcohol abuse though at present she is not drinking. She is reportedly allergic to Geodon and nonsteroidal medications, she is known to have 1. compression fracture of L1, L2, T11 and T12L as mentioned above she has ongoing history of alcoholic cirrhosis of the liver with portal venous hypertension. She carries a full code status. In the emergency room she was noted to be ill appearing, diaphoretic, and moaning in pain. 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 medications. During the hospitalization GI consult has been obtained for acute upper GI bleed and endoscopic diagnosis of gastric paresis and at this time neuro consultation has been obtained because patient is not waking up. Review of Systems 2 Review of Systems: All systems reviewed & are unremarkable except as noted in HPI and below PMFSH Past Medical History Medical History Compression fracture of L2 T12 compression fracture Compression fracture of T11 vertebra Compression fracture of L1 lumbar vertebra Portal venous hypertension Alcoholic cirrhosis Alcoholism in recovery Surgical History Surgical History Surgical history unknown Family History Family History Other Unknown family medical history Social History Social History Social History: Patient resides at [facility]. She has a history of alcohol abuse in recovery. Code status: Full code Smoking status: Former smoker Alcohol intake: former Substance use: former Spiritual care concerns: No Meds Home Medications and Allergies Home Medications ?Medication ?Instructions ?Recorded ?Confirmed ?Type aripiprazole 2 mg tablet 2 mg PO DAILY 01/28/25 01/28/25 History aripiprazole 2 mg tablet (Abilify) 2 mg PO DAILY 01/28/25 01/28/25 History aripiprazole 5 mg tablet 5 mg PO DAILY 01/28/25 01/28/25 History citalopram 40 mg tablet 40 mg PO DAILY 01/28/25 01/28/25 History clonazepam 0.5 mg tablet 0.5 mg PO Q12H 01/28/25 01/28/25 History cyclobenzaprine 5 mg tablet 5 mg PO Q8H PRN muscle spasm 01/28/25 01/28/25 History sertraline 50 mg tablet 50 mg PO DAILY 01/28/25 01/28/25 History Allergies Allergy/AdvReac Type Severity Reaction Status Date / Time ziprasidone (From Geodon) Allergy Anaphylaxis Verified 04/08/24 17:11 NSAIDS (Non-Steroidal AdvReac Ulcers Verified 04/08/24 17:11 Anti-Inflamma Vital Signs Vital Signs - 24 hr 02/01/25 14:17 02/01/25 14:17 02/01/25 14:28 Temperature Pulse Rate 64 64 69 Respiratory Rate 20 20 22 H Blood Pressure Pulse Oximetry Oxygen Delivery Fraction of Inspired Oxygen 02/01/25 14:40 02/01/25 14:42 02/01/25 15:42 Temperature Pulse Rate 76 69 70 Respiratory Rate 28 H 25 H Blood Pressure Pulse Oximetry 93 Oxygen Delivery Mechanical Ventilation Fraction of Inspired Oxygen 35 02/01/25 15:42 02/01/25 16:00 02/01/25 16:00 Temperature 38.2 C H 38.2 C H Pulse Rate 72 70 Respiratory Rate 20 18 Blood Pressure 116/66 Pulse Oximetry 97 Oxygen Delivery Fraction of Inspired Oxygen 02/01/25 16:00 02/01/25 16:00 02/01/25 16:00 Temperature Pulse Rate 70 70 Respiratory Rate 19 Blood Pressure Pulse Oximetry 97 Oxygen Delivery Mechanical Ventilation Fraction of Inspired Oxygen 35 35 02/01/25 16:42 02/01/25 17:17 02/01/25 17:20 Temperature 38.2 C H Pulse Rate 74 Respiratory Rate Blood Pressure Pulse Oximetry 93 Oxygen Delivery Mechanical Ventilation Fraction of Inspired Oxygen 35 35 02/01/25 17:22 02/01/25 18:00 02/01/25 18:00 Temperature 38.3 C H Pulse Rate 73 66 69 Respiratory Rate 23 H Blood Pressure 123/68 Pulse Oximetry 97 98 Oxygen Delivery Mechanical Ventilation Fraction of Inspired Oxygen 35 02/01/25 18:02 02/01/25 20:00 02/01/25 20:00 Temperature 38.1 C H Pulse Rate 69 55 L 63 Respiratory Rate 20 18 18 Blood Pressure 103/61 Pulse Oximetry 92 Oxygen Delivery Fraction of Inspired Oxygen 02/01/25 20:00 02/01/25 20:00 02/01/25 20:00 Temperature Pulse Rate 55 L Respiratory Rate Blood Pressure Pulse Oximetry Oxygen Delivery Mechanical Ventilation Fraction of Inspired Oxygen 35 35 02/01/25 20:43 02/01/25 20:58 02/01/25 20:58 Temperature Pulse Rate 67 63 63 Respiratory Rate 24 H 23 H 23 H Blood Pressure Pulse Oximetry Oxygen Delivery Fraction of Inspired Oxygen 02/01/25 21:10 02/01/25 21:16 02/01/25 21:20 Temperature Pulse Rate 67 67 66 Respiratory Rate 24 H 23 H Blood Pressure Pulse Oximetry 92 Oxygen Delivery Mechanical Ventilation Fraction of Inspired Oxygen 35 02/01/25 21:50 02/01/25 22:00 02/01/25 22:00 Temperature Pulse Rate 63 64 64 Respiratory Rate 20 22 H Blood Pressure Pulse Oximetry Oxygen Delivery Fraction of Inspired Oxygen 02/01/25 22:00 02/01/25 22:58 02/01/25 22:58 Temperature 37.7 C H Pulse Rate 64 61 61 Respiratory Rate 22 H 21 H 21 H Blood Pressure 99/60 L Pulse Oximetry 91 Oxygen Delivery Fraction of Inspired Oxygen 02/02/25 00:00 02/02/25 00:00 02/02/25 00:00 Temperature 37.1 C Pulse Rate 58 L 57 L 58 L Respiratory Rate 16 16 Blood Pressure 108/69 Pulse Oximetry 92 Oxygen Delivery Fraction of Inspired Oxygen 02/02/25 00:00 02/02/25 00:00 02/02/25 00:58 Temperature Pulse Rate 55 L Respiratory Rate 16 Blood Pressure Pulse Oximetry Oxygen Delivery Mechanical Ventilation Fraction of Inspired Oxygen 35 35 02/02/25 00:58 02/02/25 02:00 02/02/25 02:00 Temperature 36.7 C Pulse Rate 55 L 52 L 52 L Respiratory Rate 16 16 Blood Pressure 103/68 Pulse Oximetry 93 Oxygen Delivery Fraction of Inspired Oxygen 02/02/25 02:01 02/02/25 02:08 02/02/25 02:14 Temperature Pulse Rate 52 L 53 L 52 L Respiratory Rate 16 25 H Blood Pressure Pulse Oximetry 91 Oxygen Delivery Mechanical Ventilation Fraction of Inspired Oxygen 35 02/02/25 02:22 02/02/25 03:14 02/02/25 03:14 Temperature Pulse Rate 53 L 57 L 57 L Respiratory Rate 25 H 18 18 Blood Pressure Pulse Oximetry Oxygen Delivery Fraction of Inspired Oxygen 02/02/25 04:00 02/02/25 04:00 02/02/25 04:00 Temperature Pulse Rate 54 L Respiratory Rate 17 Blood Pressure Pulse Oximetry Oxygen Delivery Mechanical Ventilation Fraction of Inspired Oxygen 35 35 02/02/25 04:00 02/02/25 04:00 02/02/25 05:00 Temperature 36.1 C L Pulse Rate 54 L 54 L 57 L Respiratory Rate 17 Blood Pressure 98/64 L Pulse Oximetry 90 91 Oxygen Delivery Mechanical Ventilation Fraction of Inspired Oxygen 35 02/02/25 05:40 02/02/25 05:40 02/02/25 06:00 Temperature Pulse Rate 49 L 49 L 50 L Respiratory Rate 16 16 17 Blood Pressure Pulse Oximetry Oxygen Delivery Fraction of Inspired Oxygen 02/02/25 06:00 02/02/25 06:00 02/02/25 06:33 Temperature 35.6 C L Pulse Rate 50 L 50 L 49 L Respiratory Rate 17 14 Blood Pressure 91/63 L Pulse Oximetry 93 Oxygen Delivery Fraction of Inspired Oxygen 02/02/25 07:59 02/02/25 08:00 02/02/25 08:00 Temperature 35.3 C L Pulse Rate 49 L 49 L 48 L Respiratory Rate 17 16 Blood Pressure 97/65 L Pulse Oximetry 91 90 Oxygen Delivery Mechanical Ventilation Fraction of Inspired Oxygen 35 02/02/25 08:00 02/02/25 08:00 02/02/25 08:01 Temperature Pulse Rate 49 L 48 L Respiratory Rate 17 18 Blood Pressure Pulse Oximetry 90 Oxygen Delivery Mechanical Ventilation Fraction of Inspired Oxygen 35 35 02/02/25 08:01 02/02/25 08:14 02/02/25 09:41 Temperature Pulse Rate 48 L 49 L 56 L Respiratory Rate 18 17 18 Blood Pressure Pulse Oximetry Oxygen Delivery Fraction of Inspired Oxygen 02/02/25 10:00 02/02/25 10:00 02/02/25 10:00 Temperature 35.2 C L 35.2 C L Pulse Rate 55 L 55 L Respiratory Rate 22 H 17 Blood Pressure 98/65 L Pulse Oximetry 90 Oxygen Delivery Fraction of Inspired Oxygen 02/02/25 10:15 02/02/25 10:30 02/02/25 10:45 Temperature 35.2 C L 35.3 C L 35.4 C L Pulse Rate Respiratory Rate Blood Pressure Pulse Oximetry Oxygen Delivery Fraction of Inspired Oxygen 02/02/25 11:02 02/02/25 11:30 02/02/25 11:35 Temperature 35.5 C L 35.8 C L Pulse Rate 54 L Respiratory Rate 16 Blood Pressure Pulse Oximetry Oxygen Delivery Fraction of Inspired Oxygen 02/02/25 11:35 02/02/25 12:00 02/02/25 12:00 Temperature 36.0 C L Pulse Rate 54 L 54 L 55 L Respiratory Rate 16 20 18 Blood Pressure 91/59 L Pulse Oximetry 93 Oxygen Delivery Fraction of Inspired Oxygen 02/02/25 12:01 02/02/25 12:31 02/02/25 12:37 Temperature 36.1 C L 36.2 C L 36.2 C L Pulse Rate Respiratory Rate Blood Pressure Pulse Oximetry Oxygen Delivery Fraction of Inspired Oxygen Exam 2 Narrative: On exam today she is unresponsive to verbal commands, unresponsive to painful stimuli, intubated and sedated, head normocephalic with no bruit, neck supple with no meningeal signs, heart regular with no murmur, lungs with rhonchi, abdomen soft with normal bowel sounds, neurologically she is unresponsive to painful stimuli, unresponsive to the verbal stimuli, pupils non reacting to light extraocular movements absent with dolls as well facial grimace absent and there is no spontaneous movements of the upper and lower extremities or in response to the deep painful stimuli, deep tendon reflexes are absent plantar responses are absent. Results Labs 02/02/25 05:51 02/02/25 05:51 Labs: Short CBC 02/02/25 Range/Units 05:51 WBC 10.2 H (4.5-10.0) K/mm3 Hgb 10.4 L (12.0-15.0) g/dL Hct 32.4 L (37.0-47.0) % Plt Count 105 L (150-375) k/mm3 BMP 02/02/25 05:51 Sodium 143 Potassium 4.1 Chloride 113 H Carbon Dioxide 23 BUN 49 H Creatinine 1.04 H Glucose 142 H Calcium 9.5 Liver Function 02/02/25 Range/Units 05:51 Total Bilirubin 4.5 H (0.2-1.3) mg/dL AST 201 H (14-36) U/L ALT 57 H (6-35) U/L Alkaline Phosphatase 87 (38-126) U/L Albumin 2.9 L (3.5-5.1) g/dL
[2025-02-02] MEDS: NOREPINEPHRINE 8 MG/D5W 250 ML 8 MG/250 ML BAG 9.38 MG IV CONT (14:58)
[2025-02-02] MEDS: AMINO ACIDS 5%/DEXTROSE 15% 1,000 ML with MULTIVITAMINS-12 INJ VIAL 1 1.25 ML, MULTIVIT... 40 ML IV CONT (14:59)
[2025-02-02] MEDS: FAT EMULSIONS IV 20% 250 ML 20.83 ML IVPB (15:00)
[2025-02-02 15:22] LABS: Transferrin 95 mg/dL (206-381)
--- NOTE | 2025-02-02 17:38 | P.PNGI_ITS ---
Progress Note: A&P Assessment and Plan (1) Esophageal varices: Qualifiers: Esophageal varices bleeding: with bleeding Esophageal varices type: unspecified type Qualified Code(s): I85.01 - Esophageal varices with bleeding Code(s): I85.00 - Esophageal varices without bleeding Status: Acute Assessment and Plan: The patient continues intubated and not responsive to external stimuli, still not waking up, therefore intubation will continue. She is now presenting with pneumonia and hypotension, requiring pressors. Neurology evaluated the patient, will obtain EEG to assess electrical activity recommend further measures. Overall the prognosis is very poor regarding the above-mentioned conditions and massive liver infiltration from hepatocellular carcinoma. she is . made a DNR Subjective Date/time seen: 02/02/25 17:38 Objective Data Vital Signs Vital Signs: Vital Signs - 24 hr 02/01/25 18:00 02/01/25 18:00 02/01/25 18:02 Temperature 101.0 F H Pulse Rate 66 69 69 Respiratory Rate 23 H 20 Blood Pressure 123/68 Pulse Oximetry 98 Oxygen Delivery Fraction of Inspired Oxygen 02/01/25 20:00 02/01/25 20:00 02/01/25 20:00 Temperature 100.5 F H Pulse Rate 55 L 63 Respiratory Rate 18 18 Blood Pressure 103/61 Pulse Oximetry 92 Oxygen Delivery Fraction of Inspired Oxygen 35 02/01/25 20:00 02/01/25 20:00 02/01/25 20:43 Temperature Pulse Rate 55 L 67 Respiratory Rate 24 H Blood Pressure Pulse Oximetry Oxygen Delivery Mechanical Ventilation Fraction of Inspired Oxygen 35 02/01/25 20:58 02/01/25 20:58 02/01/25 21:10 Temperature Pulse Rate 63 63 67 Respiratory Rate 23 H 23 H 24 H Blood Pressure Pulse Oximetry Oxygen Delivery Fraction of Inspired Oxygen 02/01/25 21:16 02/01/25 21:20 02/01/25 21:50 Temperature Pulse Rate 67 66 63 Respiratory Rate 23 H 20 Blood Pressure Pulse Oximetry 92 Oxygen Delivery Mechanical Ventilation Fraction of Inspired Oxygen 35 02/01/25 22:00 02/01/25 22:00 02/01/25 22:00 Temperature 99.9 F H Pulse Rate 64 64 64 Respiratory Rate 22 H 22 H Blood Pressure 99/60 L Pulse Oximetry 91 Oxygen Delivery Fraction of Inspired Oxygen 02/01/25 22:58 02/01/25 22:58 02/02/25 00:00 Temperature Pulse Rate 61 61 58 L Respiratory Rate 21 H 21 H 16 Blood Pressure Pulse Oximetry Oxygen Delivery Fraction of Inspired Oxygen 02/02/25 00:00 02/02/25 00:00 02/02/25 00:00 Temperature 98.8 F Pulse Rate 57 L 58 L Respiratory Rate 16 Blood Pressure 108/69 Pulse Oximetry 92 Oxygen Delivery Mechanical Ventilation Fraction of Inspired Oxygen 35 02/02/25 00:00 02/02/25 00:58 02/02/25 00:58 Temperature Pulse Rate 55 L 55 L Respiratory Rate 16 16 Blood Pressure Pulse Oximetry Oxygen Delivery Fraction of Inspired Oxygen 35 02/02/25 02:00 02/02/25 02:00 02/02/25 02:01 Temperature 98.0 F Pulse Rate 52 L 52 L 52 L Respiratory Rate 16 16 Blood Pressure 103/68 Pulse Oximetry 93 Oxygen Delivery Fraction of Inspired Oxygen 02/02/25 02:08 02/02/25 02:14 02/02/25 02:22 Temperature Pulse Rate 53 L 52 L 53 L Respiratory Rate 25 H 25 H Blood Pressure Pulse Oximetry 91 Oxygen Delivery Mechanical Ventilation Fraction of Inspired Oxygen 35 02/02/25 03:14 02/02/25 03:14 02/02/25 04:00 Temperature Pulse Rate 57 L 57 L 54 L Respiratory Rate 18 18 17 Blood Pressure Pulse Oximetry Oxygen Delivery Fraction of Inspired Oxygen 02/02/25 04:00 02/02/25 04:00 02/02/25 04:00 Temperature Pulse Rate 54 L Respiratory Rate Blood Pressure Pulse Oximetry Oxygen Delivery Mechanical Ventilation Fraction of Inspired Oxygen 35 35 02/02/25 04:00 02/02/25 05:00 02/02/25 05:40 Temperature 96.9 F L Pulse Rate 54 L 57 L 49 L Respiratory Rate 17 16 Blood Pressure 98/64 L Pulse Oximetry 90 91 Oxygen Delivery Mechanical Ventilation Fraction of Inspired Oxygen 35 02/02/25 05:40 02/02/25 06:00 02/02/25 06:00 Temperature Pulse Rate 49 L 50 L 50 L Respiratory Rate 16 17 Blood Pressure Pulse Oximetry Oxygen Delivery Fraction of Inspired Oxygen 02/02/25 06:00 02/02/25 06:33 02/02/25 07:59 Temperature 96.1 F L Pulse Rate 50 L 49 L 49 L Respiratory Rate 17 14 Blood Pressure 91/63 L Pulse Oximetry 93 91 Oxygen Delivery Mechanical Ventilation Fraction of Inspired Oxygen 35 02/02/25 08:00 02/02/25 08:00 02/02/25 08:00 Temperature 95.5 F L Pulse Rate 49 L 48 L 49 L Respiratory Rate 17 16 17 Blood Pressure 97/65 L Pulse Oximetry 90 90 Oxygen Delivery Mechanical Ventilation Fraction of Inspired Oxygen 35 02/02/25 08:00 02/02/25 08:00 02/02/25 08:01 Temperature Pulse Rate 48 L 48 L Respiratory Rate 18 Blood Pressure Pulse Oximetry Oxygen Delivery Fraction of Inspired Oxygen 35 02/02/25 08:01 02/02/25 08:14 02/02/25 09:41 Temperature Pulse Rate 48 L 49 L 56 L Respiratory Rate 18 17 18 Blood Pressure Pulse Oximetry Oxygen Delivery Fraction of Inspired Oxygen 02/02/25 10:00 02/02/25 10:00 02/02/25 10:00 Temperature 95.4 F L 95.4 F L Pulse Rate 55 L 55 L Respiratory Rate 22 H 17 Blood Pressure 98/65 L Pulse Oximetry 90 Oxygen Delivery Fraction of Inspired Oxygen 02/02/25 10:00 02/02/25 10:15 02/02/25 10:30 Temperature 95.4 F L 95.5 F L Pulse Rate 55 L Respiratory Rate Blood Pressure Pulse Oximetry Oxygen Delivery Fraction of Inspired Oxygen 02/02/25 10:45 02/02/25 11:02 02/02/25 11:15 Temperature 95.7 F L 95.9 F L Pulse Rate 55 L Respiratory Rate Blood Pressure Pulse Oximetry 91 Oxygen Delivery Mechanical Ventilation Fraction of Inspired Oxygen 35 02/02/25 11:30 02/02/25 11:35 02/02/25 11:35 Temperature 96.5 F L Pulse Rate 54 L 54 L Respiratory Rate 16 16 Blood Pressure Pulse Oximetry Oxygen Delivery Fraction of Inspired Oxygen 02/02/25 12:00 02/02/25 12:00 02/02/25 12:00 Temperature 96.8 F L Pulse Rate 54 L 55 L 54 L Respiratory Rate 20 18 20 Blood Pressure 91/59 L Pulse Oximetry 93 93 Oxygen Delivery Mechanical Ventilation Fraction of Inspired Oxygen 35 02/02/25 12:00 02/02/25 12:00 02/02/25 12:01 Temperature 97.0 F L Pulse Rate 54 L Respiratory Rate Blood Pressure Pulse Oximetry Oxygen Delivery Fraction of Inspired Oxygen 35 02/02/25 12:31 02/02/25 12:37 02/02/25 14:00 Temperature 97.1 F L 97.1 F L 97.3 F L Pulse Rate 54 L Respiratory Rate 17 Blood Pressure 88/56 L Pulse Oximetry 91 Oxygen Delivery Fraction of Inspired Oxygen 02/02/25 14:00 02/02/25 14:00 02/02/25 14:01 Temperature Pulse Rate 54 L 54 L 55 L Respiratory Rate 17 17 Blood Pressure Pulse Oximetry Oxygen Delivery Fraction of Inspired Oxygen 02/02/25 14:06 02/02/25 14:07 02/02/25 14:58 Temperature Pulse Rate 55 L 54 L 62 Respiratory Rate 17 Blood Pressure 81/51 L Pulse Oximetry 91 Oxygen Delivery Mechanical Ventilation Fraction of Inspired Oxygen 35 02/02/25 15:15 02/02/25 15:30 02/02/25 15:30 Temperature Pulse Rate 61 64 54 L Respiratory Rate 19 Blood Pressure 92/54 L 140/77 Pulse Oximetry Oxygen Delivery Fraction of Inspired Oxygen 02/02/25 15:45 02/02/25 16:00 02/02/25 16:00 Temperature Pulse Rate 69 68 Respiratory Rate 20 Blood Pressure 118/70 Pulse Oximetry 92 Oxygen Delivery Mechanical Ventilation Fraction of Inspired Oxygen 35 35 02/02/25 16:00 02/02/25 16:00 02/02/25 16:00 Temperature 97.6 F Pulse Rate 64 68 68 Respiratory Rate 20 20 Blood Pressure 122/68 122/68 Pulse Oximetry 91 Oxygen Delivery Fraction of Inspired Oxygen 02/02/25 16:15 02/02/25 16:30 02/02/25 16:53 Temperature Pulse Rate 67 64 60 Respiratory Rate 30 H Blood Pressure 90/75 L 109/71 Pulse Oximetry Oxygen Delivery Fraction of Inspired Oxygen 02/02/25 17:00 02/02/25 17:00 02/02/25 17:27 Temperature Pulse Rate 55 L 61 61 Respiratory Rate 32 H Blood Pressure 146/74 H Pulse Oximetry 91 Oxygen Delivery Mechanical Ventilation Fraction of Inspired Oxygen 35 02/02/25 17:30 Temperature Pulse Rate 58 L Respiratory Rate Blood Pressure 85/54 L Pulse Oximetry Oxygen Delivery Fraction of Inspired Oxygen Intake/Output Intake/Output: Intake & Output 01/30/25 01/31/25 02/01/25 02/02/25 23:59 23:59 23:59 23:59 Intake Total 1964.4 533.5 780.8 1442.6 Output Total 2900 1800 1050 400 Balance -935.6 -1266.5 -269.2 1042.6 Meds/Results Medications: Active Medications Generic Name Dose Route Start Last Admin Trade Name Freq PRN Reason Stop Dose Admin Acetaminophen 650 mg 02/01/25 14:06 02/01/25 15:42 Acetaminophen 650 Mg Suppository RECTAL 650 mg Q6H PRN Administration Mild Pain (1-3) or Fever Acetylcysteine 200 mg 02/01/25 14:00 02/02/25 14:00 Acetylcysteine 20% Inhal Soln 800 Mg/4 Ml Vial INHALATION 200 mg Q6HRT TATYANA Administration Albuterol/Ipratropium 3 ml 01/30/25 14:00 02/02/25 14:00 Ipratropium 0.5 Mg/Albuterol Sulfate 2.5 Mg Ampul.Neb 3 Ml INHALATION 3 ml Q6HRT TATYANA Administration Alteplase, Recombinant 2 mg 02/02/25 10:10 Alteplase 2 Mg Vial (Cathflo) IV PUSH ONCE PRN Line Occlusion Dextrose 12.5 gm 02/02/25 10:13 Dextrose 50% 25 Gm/50 Ml Syringe IV PUSH PRN PRN Hypoglycemia Protocol Dornase Hari 2.5 mg 02/01/25 11:30 02/02/25 07:59 Dornase Hari Inh Soln 1 Mg/Ml 2.5 Ml Amp INHALATION 02/03/25 08:01 2.5 mg Q12HRT TATYANA Administration Glucagon 1 mg 02/02/25 10:13 Glucagon For Inj 1 Mg Vial IM PRN PRN Hypoglycemia Protocol Glucose 15 gm 02/02/25 10:13 Glucose Oral Gel 15 Gm Of Glucse In 37.5 Gm Tube PO PRN PRN Hypoglycemia Protocol Dexmedetomidine HCl 400 mcg in 100 mls @ 20.625 mls/hr 01/30/25 10:30 17:27 Precedex 400 Mcg/100 Ml IV CONT 0.5 mcg/kg/hr .Q4H51M TATYANA 20.63 mls/hr Titration Protocol 0.5 MCG/KG/HR Albumin Human 100 mls @ 60 mls/hr 02/02/25 07:27 02/02/25 17:30 Albutein IVPB 02/03/25 01:39 60 mls/hr Q6HR TATYANA Administration Cefepime HCl 2 gm/ Sodium 50 mls @ 100 mls/hr 02/02/25 08:00 02/02/25 15:30 Chloride IVPB Infused Q8HR TATYANA Infusion Vancomycin HCl 1,500 mg in 500 mls @ 250 mls/hr 02/02/25 21:00 Vancomycin 1,500 Mg/Ns 500 Ml IVPB Q12H TATYANA Multivitamins 1.25 ml/ 1,002.5 mls @ 40 mls/hr 02/02/25 14:00 02/02/25 14:59 Multivitamins 1.25 ml/ Amino IV CONT 40 mls/hr Acids/Dextrose .Q24H TATYANA Administration Protocol Dextrose 1,000 mls @ 50 mls/hr 02/02/25 10:12 Dextrose 10% IV CONT .Q20H PRN if PN is interrupted Fat Emulsion Intravenous 250 mls @ 20.833 mls/hr 02/02/25 14:00 02/02/25 15:00 Lipids 20% IVPB 20.83 mls/hr Q24H TATYANA Administration Dextrose 1,000 mls @ 100 mls/hr 02/02/25 10:13 Dextrose 5% 1,000 Ml IVPB PRN PRN Hypoglycemia Protocol Norepinephrine Bitartrate 8 mg in 250 mls @ 0 mls/hr 02/02/25 14:45 02/02/25 17:30 Levophed 8 Mg/D5w 250 Ml IV CONT 2 mcg/min .Q0M TATYANA 3.75 mls/hr Titration Protocol 0 MCG/MIN Insulin Aspart 2 - 5 units 02/02/25 12:00 02/02/25 17:30 Insulin Aspart (*Bkc) 100 Units/Ml SUB-Q Not Given Q6HR [facility] Protocol Multi-Ingred Cream/Lotion/Oil/Oint 1 applic 01/28/25 09:15 02/02/25 08:11 Mineral Oil/White Petrolatum Ointment EACH EYE 1 applic Q12HR TATYANA Administration Ondansetron HCl 4 mg 01/28/25 01:51 Ondansetron Inj 4 Mg/2 Ml Vial IV PUSH Q4H PRN Nausea Sodium Chloride 10 ml 01/28/25 14:00 02/02/25 14:59 Central Line Flush IV PUSH 10 ml Q8HR TATYANA Administration Sodium Chloride 20 ml 01/28/25 06:37 Central Line Flush IV PUSH PRN PRN after blood draws Radiology Results: ITS Impressions Abdomen/Pelvis CTA 01/28/25 00:08 IMPRESSION: Findings within the liver for which malignancy is suspected. Additional findings within the rectum for which acute hemorrhage is suspected (likely secondary to anorectal varices). No findings to suggest upper GI bleeding. 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 Incidental notation is made of cholelithiasis. Abdomen X-Ray 01/28/25 13:57 IMPRESSION: 1. Nasogastric tube in stomach. Chest X-Ray 02/02/25 06:13 Impression: 1: No significant change to bilateral airspace disease, compatible with edema. Head CT 02/02/25 13:34 IMPRESSION: 1. No acute intracranial process. 2. Stable age-related changes including mild diffuse volume loss and mild scattered white matter hypoattenuation consistent with chronic small vessel ischemic disease. Labs Labs: Laboratory Results - last 24 hr 02/01/25 02/01/25 02/02/25 17:57 23:37 05:05 WBC RBC Hgb Hct MCV MCH MCHC RDW Plt Count MPV Immature Gran % (Auto) Neut % (Auto) Lymph % (Auto) [place] % (Auto) Eos % (Auto) Baso % (Auto) Lymph # (Auto) [place] # (Auto) Eos # (Auto) Baso # (Auto) Abs Immat Gran (auto) Absolute Neuts (auto) Absolute Nucleated RBC Band Neutrophils % Nucleated RBC % Platelet Estimate % Immature Plt Fraction Macrocytosis Schistocytes PT INR APTT Puncture Site Left radial ABG pH 7.427 ABG pCO2 33.3 L ABG pO2 68.7 L ABG PO2/FiO2 Ratio 1.96 ABG HCO3 21.5 L ABG O2 Saturation 94.4 L ABG O2 Content 15.2 L ABG Base Excess -2.2 A-a Gradient 142.1 Oxyhemoglobin 92.1 Carboxyhemoglobin 0.7 Methemoglobin 0.1 Reduced Hemoglobin 7.1 H Total Hemoglobin 11.7 L O2 Delivery Device Ventilator O2 Liters/Min Not Reportable Minute Volume Not Reportable Vent Rate 16 Vent Mode Cmv FiO2 35 Tidal Volume 400 PEEP 8 Peak Inspir Pressure Not Reportable Pressure Support Not Reportable Sodium Potassium Chloride Carbon Dioxide Anion Gap BUN Creatinine Estim Creat Clear Calc Estimated GFR Glucose POC Capillary Glucose 122 H 136 H Lactic Acid Calcium Phosphorus Magnesium Transferrin Total Bilirubin AST ALT Alkaline Phosphatase Ammonia Total Protein Albumin Nasal MRSA (PCR) 02/02/25 02/02/25 02/02/25 05:51 08:18 11:07 WBC 10.2 H RBC 3.03 L Hgb 10.4 L Hct 32.4 L MCV 106.9 H MCH 34.3 H MCHC 32.1 RDW 22.5 H Plt Count 105 L MPV 10.4 Immature Gran % (Auto) 0.8 H Neut % (Auto) 80.8 H Lymph % (Auto) 10.6 L [place] % (Auto) 7.5 Eos % (Auto) 0.0 Baso % (Auto) 0.3 Lymph # (Auto) 1.09 [place] # (Auto) 0.8 H Eos # (Auto) 0.0 Baso # (Auto) 0.0 Abs Immat Gran (auto) 0.08 H Absolute Neuts (auto) 8.3 H Absolute Nucleated RBC 0.000 Band Neutrophils % Not Reportable Nucleated RBC % 0.0 Platelet Estimate Decreased % Immature Plt Fraction 3.7 Macrocytosis 1+ Schistocytes None seen PT 19.1 H INR 1.6 APTT 28.6 Puncture Site ABG pH ABG pCO2 ABG pO2 ABG PO2/FiO2 Ratio ABG HCO3 ABG O2 Saturation ABG O2 Content ABG Base Excess A-a Gradient Oxyhemoglobin Carboxyhemoglobin Methemoglobin Reduced Hemoglobin Total Hemoglobin O2 Delivery Device O2 Liters/Min Minute Volume Vent Rate Vent Mode FiO2 Tidal Volume PEEP Peak Inspir Pressure Pressure Support Sodium 143 Potassium 4.1 Chloride 113 H Carbon Dioxide 23 Anion Gap 7 BUN 49 H Creatinine 1.04 H Estim Creat Clear Calc 80 Estimated GFR 54 L Glucose 142 H POC Capillary Glucose 133 H Lactic Acid Calcium 9.5 Phosphorus 3.6 Magnesium 2.0 Transferrin 95 L Total Bilirubin 4.5 H AST 201 H ALT 57 H Alkaline Phosphatase 87 Ammonia < 9 L Total Protein 6.3 Albumin 2.9 L Nasal MRSA (PCR) Detected A* 02/02/25 02/02/25 13:04 17:28 WBC RBC Hgb Hct MCV MCH MCHC RDW Plt Count MPV Immature Gran % (Auto) Neut % (Auto) Lymph % (Auto) [place] % (Auto) Eos % (Auto) Baso % (Auto) Lymph # (Auto) [place] # (Auto) Eos # (Auto) Baso # (Auto) Abs Immat Gran (auto) Absolute Neuts (auto) Absolute Nucleated RBC Band Neutrophils % Nucleated RBC % Platelet Estimate % Immature Plt Fraction Macrocytosis Schistocytes PT INR APTT Puncture Site ABG pH ABG pCO2 ABG pO2 ABG PO2/FiO2 Ratio ABG HCO3 ABG O2 Saturation ABG O2 Content ABG Base Excess A-a Gradient Oxyhemoglobin Carboxyhemoglobin Methemoglobin Reduced Hemoglobin Total Hemoglobin O2 Delivery Device O2 Liters/Min Minute Volume Vent Rate Vent Mode FiO2 Tidal Volume PEEP Peak Inspir Pressure Pressure Support Sodium Potassium Chloride Carbon Dioxide Anion Gap BUN Creatinine Estim Creat Clear Calc Estimated GFR Glucose POC Capillary Glucose 151 H Lactic Acid 1.5 Calcium Phosphorus Magnesium Transferrin Total Bilirubin AST ALT Alkaline Phosphatase Ammonia Total Protein Albumin Nasal MRSA (PCR)
[2025-02-02] MEDS: dexmedeTOMIDine 400 MCG/100 ML 400 MCG/100 ML BAG 20.63 MCG IV CONT (18:37)
[2025-02-02] MEDS: VANCOMYCIN 1,500 MG/NS 500 ML 1,500 MG/500 ML BAG 250 MG IVPB (21:59)
[2025-02-02] MEDS: dexmedeTOMIDine 400 MCG/100 ML 400 MCG/100 ML BAG 37.13 MCG IV CONT (22:03)
[2025-02-03] VITALS (53 sets, daily range): BP systolic 85–131; BP diastolic 60–83; PULSE 52–142; RESP 16–32; TEMP 37.3–38.2; O2SAT 90–95
--- NOTE | 2025-02-03 | ECHO_ITS ---
Patient Info Name: Ulysses Salazar Age: 64 years : 1960 Gender: Female Ht: 69 in Wt: 355 lbs BSA: 2.89 m2 HR: 54 bpm BP: 99 / 83 mmHg Heart Rhythm: Sinus Rhythm Technical Quality: Fair Exam Date: 02/03/2025 7:43 AM Patient Status: I Admit Date: 01/28/2025 Exam Type: CA echo dop color flow w con Complete two-dimensional, color flow and Doppler transthoracic echocardiogram is performed with contrast to opacify the left ventricle and to improve the deliniation of the left ventricle endocardial borders. Staff Referring Physician: Caleb Preciado MD Commission Sales Associate: Chantell Miranda Attending Provider: Gabriela Mckeon DO Contrast/Agitated Saline Contrast/Ag. Saline: Definity Amount: 2.00 ml Administered By: Chantell Miranda Existing IV Access: Yes IV Access Condition: patent with no signs of infiltration Summary 1. Poor acoustic windows/images. 2. Overall normal biventricular size and systolic function. 3. Cardiac valves are not well visualized and if clinically warranted, can repeat transthoracic echocardiogram for reassessment of valves. Left Ventricle The left ventricle is normal in size and systolic function. The left ventricular ejection fraction is visually estimated to be 60-65%. Right Ventricle The right ventricle is normal in size and systolic function. Left Atria The left atrium is normal size. Right Atria The right atrium is normal size. Atrial Septum The atrial septum is not well visualized. Aortic Valve The aortic valve is not well visualized. Pulmonic Valve The pulmonic valve is not visualized. Mitral Valve The mitral valve is not well visualized. Tricuspid Valve The tricuspid valve is not well visualized. Pericardium/Pleural Pericardium is normal in appearance with no evidence for significant pericardial effusion. Inferior Vena Cava Inferior vena cava is not well visualized. Aorta The aortic root is not well visualized. Left Ventricular Outflow Tract Name Value Normal LVOT 2D LVOT Diameter 2.0 cm LVOT Doppler LVOT Peak Velocity 97 cm/s LVOT Peak Gradient 4 mmHg LVOT Mean Gradient 2 mmHg LVOT VTI 20 cm LVOT VTI/AV VTI Ratio 0.7 LVOT Stroke Volume 60 ml LVOT CO 3.2 l/min LVOT CI 1.1 l/min/m2 Mitral Valve Name Value Normal MV Diastolic Function MV E Peak Velocity 109 cm/s MV A Peak Velocity 76 cm/s MV E/A 1.4 MV Decel Time (PW) 227 ms MV Annular TDI MV E/e' (Septal) 12.9 MV E/e' (Lateral) 12.0 MV E/e' (Average) 12.5 Tricuspid Valve Name Value Normal TV Regurgitation Doppler TR Peak Velocity 225 cm/s TR Peak Gradient 15 mmHg Estimated PAP/RSVP RA Pressure 10 mmHg <=5 PA Systolic Pressure 30 mmHg <36 RV Systolic Pressure 30 mmHg <36 TV Annular TDI TV Lateral Rebeka s' Velocity 12.7 cm/s >=9.5 Aortic Valve Name Value Normal AV Doppler AV Peak Velocity 140 cm/s AV Peak Gradient 8 mmHg AV Mean Gradient 4 mmHg AV VTI 29 cm AV Area (Cont Eq VTI) 2.0 cm2 >=3.0 AV Area (Cont Eq Donovan) 2.1 cm2 AV DI (Donovan) 0.69 AV Regurgitation 2D LVOT Area 3.1 cm2 Ventricles Name Value Normal LV Dimensions 2D/MM IVS Diastolic Thickness (2D) 0.8 cm 0.6-1.0 LVID Diastole (2D) 5.7 cm 3.8-5.2 LVIW Diastolic Thickness (2D) 0.8 cm 0.6-0.9 LVID Systole (2D) 3.9 cm 2.2-3.5 LVOT Diameter 2.0 cm LV Mass (2D Cubed) 170.74 g 67.00-162.00 LV Mass Index (2D Cubed) 59 g/m2 43-95 Relative Wall Thickness (2D) 0.27 <=0.42 LV Fractional Shortening/Ejection Fraction 2D/MM LV Fractional Shortening (2D) 32 % 27-45 LV EF (2D Teichholz) 60 % LV Diastolic Volume (4C MOD) 63 ml LV EF (4C MOD) 70 % LV Diastolic Volume (2C MOD) 47 ml LV EF (2C MOD) 68 % LV Diastolic Volume (BP MOD) 56 ml 46-106 LV Diastolic Volume Index (BP MOD) 19 ml/m2 29-61 LV Systolic Volume (BP MOD) 17 ml 14-42 LV Systolic Volume Index (BP MOD) 6 ml/m2 8-24 LV EF (BP MOD) 69 % 54-74 LV Diastolic Length (4C) 7.4 cm LV Systolic Length (4C) 6.9 cm LV Stroke Volume (4C MOD) 44 ml Atria Name Value Normal LA Dimensions LA Volume (4C A-L) 87 ml LA Volume (BP A-L) 76 ml RA Dimensions RA Area (4C) 13.3 cm2 <=18.0 Report Signatures Amended by Ke Porter on 02/03/2025 01:04 PM
[2025-02-03] MEDS: dexmedeTOMIDine 400 MCG/100 ML 400 MCG/100 ML BAG 33 MCG IV CONT (00:43)
[2025-02-03] MEDS: IPRATROPIUM 0.5 MG/ALBUTEROL SULFATE 2.5 MG AMPUL.NEB 3 ML INHALATION ×4 (02:30→19:28)
[2025-02-03] MEDS: ACETYLCYSTEINE 20% INHAL SOLN 800 MG/4 ML VIAL 200 MG INHALATION ×4 (02:31→19:27)
[2025-02-03] MEDS: dexmedeTOMIDine 400 MCG/100 ML 400 MCG/100 ML BAG 37.13 MCG IV CONT ×2 (03:35→06:03)
[2025-02-03 05:08] LABS: Hematocrit 28.2 % (37.0-47.0); Hemoglobin 9.0 g/dL (12.0-15.0); Immature Granulocyte Percent A 1.1 % (0-0.5); Immature Platelet Fraction Pct 3.3 % (0.9-11.2); Lymphocytes Absolute Auto 0.89 K/mm3 (0.9-3.2); Mean Corpuscular HGB Conc 31.9 g/dl (32-36); Mean Corpuscular Hemoglobin 33.7 pg (26-34); Mean Corpuscular Volume 105.6 fl (80-100); Nucleated Red Blood Cells Absolute Auto 0.000 K/mm3 (0.0-0.012); Nucleated Red Blood Cells Perc 0.0 % (0.0-0.2); Platelet Count Result 110 k/mm3 (150-375); Red Blood Count 2.67 M/mm3 (4.2-5.4); White Blood Count 8.2 K/mm3 (4.5-10.0)
[2025-02-03 05:19] LABS: INR 1.7; Partial Thromboplastin Time 30.2 Seconds (22.3-36.8); Prothrombin Time 20.2 Seconds (11.1-14.7)
[2025-02-03 05:24] LABS: Lipase 152 U/L (23-300)
[2025-02-03 05:25] LABS: Triglycerides 134 mg/dL (<150)
[2025-02-03 05:27] LABS: Alanine Aminotransferase 45 U/L (6-35); Albumin Level 3.5 g/dL (3.5-5.1); Alkaline Phosphatase 67 U/L (38-126); Ammonia < 9 umol/L (9-30); Anion Gap 7 mmol/L (4-12); Aspartate Amino Transferase 140 U/L (14-36); Bilirubin,Total 3.7 mg/dL (0.2-1.3); Blood Urea Nitrogen 45 mg/dL (7-17); Calcium 9.8 mg/dL (8.4-10.2); Carbon Dioxide 24 mmol/L (22-30); Chloride 113 mmol/L (98-107); Estimated CRCL calculation 83 ml/min; Estimated Glomerular Filt Rate 55; Glucose 171 mg/dL (65-110); Magnesium 2.0 mg/dL (1.6-2.3); Potassium 3.7 mmol/L (3.4-5.0); Sodium 144 mmol/L (137-145); Total Protein 6.4 g/dL (6.3-8.2)
[2025-02-03 05:29] LABS: Anisocytosis 1+; Hypochromasia 1+; Macrocytosis 1+ (NORMAL)
[2025-02-03 05:30] LABS: Schistocytes None Seen
[2025-02-03 05:32] LABS: Alveolar/Arterial O2 Gradient 213.5 mmHg; Carboxyhemoglobin 0.4 % THb (0-2.0); Fractional Inspired Oxygen 45 %; HCO3 ABG 23.7 mEq/l (22.0-26.0); Methemoglobin ABG 0.2 %THb (0-1.5); Oxygen Content ABG 13.8 %vol (16.0-22.0); Oxygen Saturation ABG 95.3 % (95.0-100.0); PCO2 ABG 32.7 mmHg (35.0-45.0); PO2 ABG 70.2 mmHg (80.0-100.0); PO2 FiO2 Ratio Arterial Blood 1.56 %; Reduced Hemoglobin 5.8 %THb (0-5.0)
[2025-02-03 05:37] LABS: Modified Allen's Test Pass; Site Drawn RIGHT RADIAL
[2025-02-03 05:38] LABS: Arterial Blood Gas Ventilator rate 16 /MIN
[2025-02-03 05:39] LABS: Arterial Blood Gas Tidal Volume 400 ml
[2025-02-03] MEDS: CENTRAL LINE FLUSH 10 ML IV PUSH ×3 (06:04→21:26)
[2025-02-03] MEDS: CEFEPIME 2 GM in SODIUM CHLORIDE 0.9% IV 50 ML 100 ML IVPB ×3 (06:06→21:26)
[2025-02-03] MEDS: PERFLUTREN LIPID MICROSPHERES 1.5 ML VIAL DILUTED TO 10 ML TOTAL VOLUME IV PUSH (07:50)
[2025-02-03] MEDS: dexmedeTOMIDine 400 MCG/100 ML 400 MCG/100 ML BAG 41.25 MCG IV CONT ×2 (08:00→20:09)
[2025-02-03] MEDS: DORNASE ALFA INH SOLN 1 MG/ML 2.5 ML AMP 2.5 MG INHALATION (08:09)
[2025-02-03] MEDS: VANCOMYCIN 1,500 MG/NS 500 ML 1,500 MG/500 ML BAG 250 MG IVPB (08:49)
[2025-02-03] MEDS: MINERAL OIL/WHITE PETROLATUM OINTMENT 1 APPLIC EACH EYE ×2 (08:49→20:11)
--- NOTE | 2025-02-03 09:12 | IVDEFINITY ---
Prior to administration of IV Definity the patient was educated on the risks and benefits of the imaging enhancing agent including potential adverse side effects. The patient verbalized understanding. Allergies were verified. No exclusion criteria were identified and at least one of the following inclusion criteria were met: 1) physician request, 2) patient technically difficult to image (per the [place] [employer] guidelines of two or more segments not discernable within the apical view), or 3) questionable left ventricular function. ?
[2025-02-03] MEDS: POTASSIUM PHOS,M-BASIC-D-BASIC 15 MMOL in SODIUM CHLORIDE 0.9% IV 250 ML 63.75 MMOL IVPB (09:39)
[2025-02-03] MEDS: dexmedeTOMIDine 400 MCG/100 ML 400 MCG/100 ML BAG 24.75 MCG IV CONT ×2 (11:08→16:28)
--- NOTE | 2025-02-03 11:31 | PCNFU ---
Nutrition Follow-Up Complete: Suboptimal Energy Intake as related to mechanical intubation as evidenced by NPO. Goal: Meet estimated nutritional needs Patient is progressing towards goal. No new goal. Pt current nutrition is TPN at 40 ml/hr. Last recorded weight is 161.2 kg. Bowel Motility:+BM reported 01/31 Labs Reviewed: PO4 2.4, Cr 1.01,BUN 45, Glu 174, Hct 28.2, Hgb 9.0 Meds Noted:Cefepime, Precedex, Clinimix 5/15 at 40 ml/hr with 250 ml of 20% Lipid Emulsion. Skin: WNL Additional Notes: Patient remains on mechanical vent. TPN current at 40 ml/hr providing 1182 kcal and 48 gm protein. Meeting 82% kcal needs at 22 kcal/kg IBW and 41% protein needs at 1.8 gm/kg. Recommend advancing to 50 ml/hr to better nutritional needs at 1352 kcal and 60 gm protein. Will monitor weight, labs, skin, diet orders, meds every Sunday and Sunday.
--- NOTE | 2025-02-03 13:31 | P.PNINT_ITS ---
Progress Note: A&P Assessment and Plan (1) Encephalopathy: Qualifiers: Encephalopathy type: metabolic Qualified Code(s): G93.41 - Metabolic encephalopathy Code(s): G93.40 - Encephalopathy, unspecified Status: Acute Assessment and Plan: Multifactorial, initially thought to be secondary to hyperammonemia, liver dysfunction,, shock -patient did receive lactulose enema on 01/31/2025, good bowel movements x2 Ammonia levels have normalized Continue to monitor -anisocoria, CT scan of the brain 01/28/2025 with no significant abnormality seen -continues to be encephalopathic -02/02/2025, repeat CT scan of the brain with no acute intracranial process, chronic small vessel ischemic disease -appreciate Neurology evaluation, -EEG has been ordered (2) Hemorrhagic shock: Code(s): R57.8 - Other shock Status: Acute Assessment and Plan: Pt presented with rectal bleed, CT showed esophageal and rectal varices. -Transfused 2 units unmatched PRBC in the ER -hemoglobin this morning is 9.3, platelets 186 -01/28: INR 1.6, will give vitamin K -01/28: Transfused 1 unit of FFP and 1 unit of packed RBC -01/30: 1 unit of FFP and 1 unit of packed RBCs were transfused -patient adequately fluid-resuscitated -OFF pressors at this, maintain MAP > 65 mmHg or SBP > 100 mmHg for adequate end organ perfusion -01/29: Hb 7.3, INR 1.8 this morning. Transfused 1 unit of FFP and 1 unit of packed RBC, will also repeat vitamin K IVPB -01/30: Hemoglobin remained stable, decreased NG output. Discussed with GI, will continue octreotide. Discontinued Protonix infusion and IV Protonix -01/31: Hemoglobin is 9.7 this morning and stable, NG was removed 01/30 with EGD. Will continue octreotide per GI -02/01: Hemoglobin 10.1 this morning in stable, patient remains on octreotide infusion -04/04: Hemoglobin 10.4 and stable, patient remains on octreotide infusion per GI 02/03: Hemoglobin remained stable at 9.0 01/28: CTA scan of the abdomen and pelvis: Findings within the liver for which malignancy is suspected. Additional findings within the rectum for which acute hemorrhage is suspected (likely secondary to anorectal varices). No findings to suggest upper GI bleeding. 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 Incidental notation is made of cholelithiasis. (3) Airway compromise: Code(s): J98.8 - Other specified respiratory disorders Status: Acute Assessment and Plan: Patient encephalopathic with elevated ammonia level, not protecting her airway, also intubated for aspiration prevention and for EGD -01/28: Intubated patient for airway protection due to encephalopathy -currently on CMV mode of ventilation, peep of 5 and 35% FiO2 -chest x-ray and ABGs reviewed, maintain O2 sats > 92% -sedated with Precedex infusion, will have bedside RN wean Precedex and try to wake up patient. When she is more awake will place her on SBT and evaluate for extubation 02/01: Patient continues to have thick ETT secretions, added Pulmozyme and Mucomyst nebulizer 02/02: Patient spiked fevers, continues to have thick ETT secretions, borderline blood pressure, started patient on cefepime and vancomycin (02/02) 02/02: Blood cultures and sputum cultures pending (4) Esophageal varices: Qualifiers: Esophageal varices bleeding: with bleeding Esophageal varices type: unspecified type Qualified Code(s): I85.01 - Esophageal varices with bleeding Code(s): I85.00 - Esophageal varices without bleeding Status: Acute Assessment and Plan: Esophageal varices as seen on CTA abdomen and pelvis. -appreciate GI evaluation -01/28: EGD: Showed actively bleeding gastric varix at the gastric cardia, a band ligation device was used to place 1 band, moderate gastritis was seen in the stomach. The gastric has a moderate portal hypertensive change. Large amount of blood was seen in the distal esophagus and the stomach the bowel and the 2nd portion of duodenum was normal with no ulcers or masses 01/30: Repeat EGD: Showed medium grade 3 varices (large varices almost occluding the esophageal lumen were present in the distal esophagus. There was no evidence of bleeding bleeding corresponding to the previous band. To more bands were placed. There was a large fundal pool of blood in the stomach. The bulb and the 2nd portion of duodenum was normal Appreciate GI following the patient, discussed with GI, will continue octreotide infusion per GI - drainage in the FMS has also slowed down, patient is not have an NG tube any more (5) Rectal varices: Code(s): K64.9 - Unspecified hemorrhoids Status: Acute Assessment and Plan: Likely related to alcoholic cirrhosis, (6) Alcoholic cirrhosis of liver with ascites: Code(s): K70.31 - Alcoholic cirrhosis of liver with ascites Status: Acute Assessment and Plan: History of alcoholic cirrhosis -LFTs and bilirubin elevated but stable -could be related to shock liver, cirrhosis, bleeding -status post ceftriaxone (01/28) for SBP prophylaxis -continue to monitor LFTs and bilirubin -INR elevated, status post vitamin K and FFP, INR is stable at 1.5 -continue to monitor (7) Acute kidney injury: Code(s): N17.9 - Acute kidney failure, unspecified Status: Acute Assessment and Plan: Acute kidney injury, likely related to hemorrhagic shock -low urine output, creatinine and BUN normal -off pressors, blood pressures remained stable, will allow higher MAP, for adequate end organ perfusion -continue to monitor urine output, renal function electrolytes (8) Abnormal CT of liver: Code(s): R93.2 - Abnormal findings on diagnostic imaging of liver and biliary tract Status: Acute Assessment and Plan: CT abdomen and pelvis as above: Suspicious for malignancy -AFP significantly elevated to 83,546 (0.0-9.2) -GI is following the patient: Recommended may need MRI liver protocol when more stable and extubated (9) Pneumonia: Code(s): J18.9 - Pneumonia, unspecified organism Status: Acute Assessment and Plan: Chest x-ray with worsening infiltrates, thick cream to yellow colored secretion -patient is febrile with low blood pressures with brief Levophed requirement -sputum cultures and blood cultures have been obtained and pending -continue antibiotics as above Plan DVT prophylaxis: SCDs, no chemoprophylaxis due to hemorrhagic shock and GI bleed Stress ulcer prophylaxis: None at this time according to GI Nutrition: TPN started on 02/02 Code Status: DNR Critical Care Time Spent: 33 minutes 02/01: Discussed at length with patient's sister Jinny, she wants to be the decision maker, appreciate Allison from care coordination discussed with Jinny and patient's daughter Modesta. Modesta agreed the Jinny to be the surrogate decision maker. They also agree to make her a do not resuscitate, orders for DNR when placed in the chart. I answered all the questions 01/31: Discussed with Modesta Stearns, patient's daughter at [phone], updated the daughter with patient's condition from the time she came to the hospital until today. She is aware that patient is not waking up despite being off sedation likely related to hepatic encephalopathy. I updated her with the repeat EGD that was done yesterday and that the patient has received multiple blood products. I also discussed with her code status to which the daughter stated she wanted her to be a full code. She did not have any other questions. 01/30: Discussed with Jinny Cabezas, patient's sister and updated her with patient's condition and plan of care. She stated that the patient has a daughter with anemia of Modesta Stearns, she was supposed to contact the daughter and I asked to give me a call. Will try to locate daughter's number and will give her a call and explain to her patient's condition/situation and recommendations of the apartment community assistant manager. Due to a high probability of clinically significant, life threatening deterioration, the patient required my highest level of preparedness to intervene emergently and I personally spent this critical care time directly and personally managing the patient. This critical care time included obtaining a history; examining the patient; pulse oximetry; ordering and review of studies; arranging urgent treatment with development of a management plan; evaluation of patient's response to treatment; frequent reassessment; and discussions with other providers. It was exclusive of separately billable procedures and treating other patients and teaching time. Please see Assessment and Plan section and the rest of the note for further information on patient assessment and treatment This dictation may have been done utilizing a voice recognition system. Attempts have been made to correct errors. However, there may be uncorrected grammatical, spelling, and recognitions errors present. Subjective Date/time seen: 02/03/25 13:31 Interval history: Reason for consult: GI bleed, Esophageal and rectal varices, shock, altered mental status, anisocoria, unable to protect her airway, intubated and on mechanical ventilator, hyperkalemia, acute renal failure, elevated LFTs 01/28: EGD: Showed actively bleeding gastric varix at the gastric cardia, a band ligation device was used to place 1 band, moderate gastritis was seen in the stomach. The gastric has a moderate portal hypertensive change. Large amount of blood was seen in the distal esophagus and the stomach the bowel and the 2nd portion of duodenum was normal with no ulcers or masses 01/30: Repeat EGD: Showed medium grade 3 varices (large varices almost occluding the esophageal lumen were present in the distal esophagus. There was no evidence of bleeding bleeding corresponding to the previous band. To more bands were placed. There was a large fundal pool of blood in the stomach. The bulb and the 2nd portion of duodenum was normal 02/03/2025: Patient seen and examined the ICU, remains intubated on CMV mode of ventilation, peep of 8, 45 % FiO2. Secretions are better this morning S patient is on Pulmozyme and Mucomyst nebs. Fever curve slightly improving, T-max of 100.6?. Remains on Precedex infusion. Barely opens her eyes, does not follow simple commands, withdraws to pain in all extremities. Patient was started briefly on Levophed yesterday has been off Levophed since midnight. Currently hemodynamically stable. Hemoglobin remained stable, ammonia levels are within normal limits Review of Systems 2 Review of Systems: ROS unobtainable: Yes unobtainable due to endotracheal tube, unobtainable due to medical condition and unobtainable due to mental status Exam Narrative: General: Patient is intubated and sedated in no acute distress HEENT:? Pupils unequal, R>L, but reactive, sclera is icteric Neck:? supple Respiratory:? Coarse breath sounds bilaterally, decreased at bases, diffuse wheezing Cardiac:? S1 S2 normal, regular rate and rhythm Abdomen:? soft, nontender, non distended, morbidly obese, hypoactive bowel sounds Extremities:?b/l edema of lower extremities, palpable pedal pulses Neuro:? Patient is intubated, sedated, barely opens her eyes to name, does not track or follow simple commands.. withdraws to pain stimulus. Patient is moving all her extremities spontaneously and nonpurposeful Skin:? Feet are warm today Psych:? unable to assess Objective Data Vital Signs Vital Signs: Vital Signs - 24 hr 02/02/25 14:00 02/02/25 14:00 02/02/25 14:00 Temperature 97.3 F L Pulse Rate 54 L 54 L 54 L Respiratory Rate 17 17 Blood Pressure 88/56 L Pulse Oximetry 91 Oxygen Delivery Fraction of Inspired Oxygen 02/02/25 14:01 02/02/25 14:06 02/02/25 14:07 Temperature Pulse Rate 55 L 55 L 54 L Respiratory Rate 17 17 Blood Pressure Pulse Oximetry 91 Oxygen Delivery Mechanical Ventilation Fraction of Inspired Oxygen 35 02/02/25 14:58 02/02/25 15:15 02/02/25 15:30 Temperature Pulse Rate 62 61 64 Respiratory Rate Blood Pressure 81/51 L 92/54 L 140/77 Pulse Oximetry Oxygen Delivery Fraction of Inspired Oxygen 02/02/25 15:30 02/02/25 15:45 02/02/25 16:00 Temperature Pulse Rate 54 L 69 68 Respiratory Rate 19 20 Blood Pressure 118/70 Pulse Oximetry 92 Oxygen Delivery Mechanical Ventilation Fraction of Inspired Oxygen 35 02/02/25 16:00 02/02/25 16:00 02/02/25 16:00 Temperature 97.6 F Pulse Rate 64 68 Respiratory Rate 20 20 Blood Pressure 122/68 Pulse Oximetry 91 Oxygen Delivery Fraction of Inspired Oxygen 35 02/02/25 16:00 02/02/25 16:00 02/02/25 16:15 Temperature Pulse Rate 68 67 67 Respiratory Rate Blood Pressure 122/68 90/75 L Pulse Oximetry Oxygen Delivery Fraction of Inspired Oxygen 02/02/25 16:30 02/02/25 16:53 02/02/25 17:00 Temperature Pulse Rate 64 60 55 L Respiratory Rate 30 H Blood Pressure 109/71 Pulse Oximetry 91 Oxygen Delivery Mechanical Ventilation Fraction of Inspired Oxygen 35 02/02/25 17:00 02/02/25 17:27 02/02/25 17:30 Temperature Pulse Rate 61 61 58 L Respiratory Rate 32 H Blood Pressure 146/74 H 85/54 L Pulse Oximetry Oxygen Delivery Fraction of Inspired Oxygen 02/02/25 18:00 02/02/25 18:00 02/02/25 18:00 Temperature 98.2 F Pulse Rate 61 61 61 Respiratory Rate 19 18 Blood Pressure 110/65 110/65 Pulse Oximetry 93 Oxygen Delivery Fraction of Inspired Oxygen 02/02/25 18:00 02/02/25 18:37 02/02/25 18:37 Temperature Pulse Rate 61 60 60 Respiratory Rate 18 18 Blood Pressure Pulse Oximetry Oxygen Delivery Fraction of Inspired Oxygen 02/02/25 19:18 02/02/25 19:20 02/02/25 19:25 Temperature Pulse Rate 66 66 68 Respiratory Rate 25 H 24 H Blood Pressure Pulse Oximetry 95 Oxygen Delivery Mechanical Ventilation Fraction of Inspired Oxygen 35 02/02/25 20:00 02/02/25 20:00 02/02/25 20:00 Temperature 98.4 F Pulse Rate 65 68 Respiratory Rate 22 H Blood Pressure 102/59 L Pulse Oximetry 23 L Oxygen Delivery Fraction of Inspired Oxygen 35 02/02/25 20:00 02/02/25 20:00 02/02/25 20:25 Temperature Pulse Rate 68 69 68 Respiratory Rate 22 H Blood Pressure 103/56 L Pulse Oximetry 87 L Oxygen Delivery Mechanical Ventilation Fraction of Inspired Oxygen 45 02/02/25 20:30 02/02/25 22:00 02/02/25 22:00 Temperature Pulse Rate 74 63 63 Respiratory Rate 24 H Blood Pressure 109/64 Pulse Oximetry Oxygen Delivery Fraction of Inspired Oxygen 02/02/25 22:00 02/02/25 22:03 02/02/25 22:03 Temperature 99 F Pulse Rate 63 63 63 Respiratory Rate 19 19 19 Blood Pressure 109/64 Pulse Oximetry 94 Oxygen Delivery Fraction of Inspired Oxygen 02/02/25 22:15 02/02/25 23:20 02/03/25 00:00 Temperature 99.0 F Pulse Rate 60 54 L 55 L Respiratory Rate 19 18 Blood Pressure 91/56 L Pulse Oximetry 92 93 Oxygen Delivery Mechanical Ventilation Fraction of Inspired Oxygen 45 02/03/25 00:00 02/03/25 00:00 02/03/25 00:00 Temperature 99.2 F Pulse Rate 55 L 55 L Respiratory Rate 18 Blood Pressure 100/60 100/60 Pulse Oximetry 94 Oxygen Delivery Fraction of Inspired Oxygen 45 02/03/25 00:00 02/03/25 00:00 02/03/25 00:43 Temperature Pulse Rate 55 L 142 H 55 L Respiratory Rate 18 18 Blood Pressure Pulse Oximetry 94 Oxygen Delivery Mechanical Ventilation Fraction of Inspired Oxygen 45 02/03/25 00:43 02/03/25 02:00 02/03/25 02:00 Temperature 99.8 F H Pulse Rate 55 L 56 L 56 L Respiratory Rate 18 21 H Blood Pressure 85/68 L Pulse Oximetry 94 Oxygen Delivery Fraction of Inspired Oxygen 02/03/25 02:00 02/03/25 02:00 02/03/25 02:09 Temperature Pulse Rate 55 L 55 L 55 L Respiratory Rate 18 Blood Pressure 85/68 L Pulse Oximetry 95 Oxygen Delivery Mechanical Ventilation Fraction of Inspired Oxygen 45 02/03/25 02:15 02/03/25 02:31 02/03/25 02:45 Temperature Pulse Rate 56 L 57 L 78 Respiratory Rate 19 20 Blood Pressure 104/60 Pulse Oximetry Oxygen Delivery Fraction of Inspired Oxygen 02/03/25 03:10 02/03/25 03:15 02/03/25 03:16 Temperature 99.9 F H Pulse Rate 69 71 69 Respiratory Rate 20 21 H Blood Pressure 131/72 131/72 Pulse Oximetry 93 Oxygen Delivery Fraction of Inspired Oxygen 02/03/25 03:35 02/03/25 03:35 02/03/25 04:00 Temperature 100 F H Pulse Rate 67 68 68 Respiratory Rate 20 20 21 H Blood Pressure 124/68 Pulse Oximetry 93 Oxygen Delivery Fraction of Inspired Oxygen 02/03/25 04:00 02/03/25 04:00 02/03/25 04:00 Temperature Pulse Rate 65 65 Respiratory Rate 19 Blood Pressure 124/68 Pulse Oximetry 93 Oxygen Delivery Mechanical Ventilation Fraction of Inspired Oxygen 45 45 02/03/25 04:00 02/03/25 04:04 02/03/25 05:20 Temperature Pulse Rate 65 65 56 L Respiratory Rate 19 Blood Pressure Pulse Oximetry 95 Oxygen Delivery Mechanical Ventilation Fraction of Inspired Oxygen 45 02/03/25 06:00 02/03/25 06:00 02/03/25 06:03 Temperature 100.4 F H Pulse Rate 55 L 53 L 56 L Respiratory Rate 18 19 Blood Pressure 99/83 L Pulse Oximetry 95 Oxygen Delivery Fraction of Inspired Oxygen 02/03/25 06:03 02/03/25 06:14 02/03/25 06:49 Temperature Pulse Rate 56 L 53 L 54 L Respiratory Rate 20 18 Blood Pressure 99/83 L Pulse Oximetry Oxygen Delivery Fraction of Inspired Oxygen 02/03/25 08:00 02/03/25 08:00 02/03/25 08:00 Temperature Pulse Rate 54 L 54 L 54 L Respiratory Rate 19 19 19 Blood Pressure Pulse Oximetry 94 Oxygen Delivery Mechanical Ventilation Fraction of Inspired Oxygen 45 02/03/25 08:00 02/03/25 08:00 02/03/25 08:00 Temperature 100.8 F H Pulse Rate 54 L 54 L Respiratory Rate 19 Blood Pressure 104/66 104/66 Pulse Oximetry 94 Oxygen Delivery Fraction of Inspired Oxygen 45 02/03/25 08:00 02/03/25 08:11 02/03/25 08:16 Temperature Pulse Rate 55 L 53 L 57 L Respiratory Rate 20 Blood Pressure Pulse Oximetry 94 Oxygen Delivery Mechanical Ventilation Fraction of Inspired Oxygen 45 02/03/25 08:33 02/03/25 08:51 02/03/25 09:41 Temperature Pulse Rate 60 60 59 L Respiratory Rate 21 H 20 32 H Blood Pressure Pulse Oximetry Oxygen Delivery Fraction of Inspired Oxygen 02/03/25 10:00 02/03/25 10:00 02/03/25 10:00 Temperature 100.2 F H Pulse Rate 57 L 57 L 57 L Respiratory Rate 19 Blood Pressure 110/66 110/66 Pulse Oximetry 93 Oxygen Delivery Fraction of Inspired Oxygen 02/03/25 10:11 02/03/25 10:42 02/03/25 10:52 Temperature Pulse Rate 57 L 57 L 56 L Respiratory Rate 19 16 Blood Pressure Pulse Oximetry 93 Oxygen Delivery Mechanical Ventilation Fraction of Inspired Oxygen 45 02/03/25 11:08 02/03/25 12:00 02/03/25 12:00 Temperature Pulse Rate 57 L 55 L 55 L Respiratory Rate 18 18 Blood Pressure 103/65 Pulse Oximetry Oxygen Delivery Fraction of Inspired Oxygen 02/03/25 12:00 02/03/25 12:00 02/03/25 12:00 Temperature 100.1 F H Pulse Rate 88 55 L Respiratory Rate 21 H 21 H Blood Pressure 103/65 Pulse Oximetry 94 94 Oxygen Delivery Mechanical Ventilation Fraction of Inspired Oxygen 45 45 02/03/25 12:00 Temperature Pulse Rate 53 L Respiratory Rate Blood Pressure Pulse Oximetry Oxygen Delivery Fraction of Inspired Oxygen Intake/Output Intake/Output: Intake & Output 01/31/25 02/01/25 02/02/25 02/03/25 23:59 23:59 23:59 23:59 Intake Total 533.5 780.8 2226.1 1243.4 Output Total 1800 1050 700 425 Balance -1266.5 -269.2 1526.1 818.4 Meds/Results Medications: Active Medications Generic Name Dose Route Start Last Admin Trade Name Freq PRN Reason Stop Dose Admin Acetaminophen 650 mg 02/01/25 14:06 02/01/25 15:42 Acetaminophen 650 Mg Suppository RECTAL 650 mg Q6H PRN Administration Mild Pain (1-3) or Fever Acetylcysteine 200 mg 02/01/25 14:00 02/03/25 08:09 Acetylcysteine 20% Inhal Soln 800 Mg/4 Ml Vial INHALATION 200 mg Q6HRT TATYANA Administration Albuterol/Ipratropium 3 ml 01/30/25 14:00 02/03/25 08:09 Ipratropium 0.5 Mg/Albuterol Sulfate 2.5 Mg Ampul.Neb 3 Ml INHALATION 3 ml Q6HRT TATYANA Administration Alteplase, Recombinant 2 mg 02/02/25 10:10 Alteplase 2 Mg Vial (Cathflo) IV PUSH ONCE PRN Line Occlusion Dextrose 12.5 gm 02/02/25 10:13 Dextrose 50% 25 Gm/50 Ml Syringe IV PUSH PRN PRN Hypoglycemia Protocol Glucagon 1 mg 02/02/25 10:13 Glucagon For Inj 1 Mg Vial IM PRN PRN Hypoglycemia Protocol Glucose 15 gm 02/02/25 10:13 Glucose Oral Gel 15 Gm Of Glucse In 37.5 Gm Tube PO PRN PRN Hypoglycemia Protocol Dexmedetomidine HCl 400 mcg in 100 mls @ 16.5 mls/hr 01/30/25 10:30 02/03/25 12:00 Precedex 400 Mcg/100 Ml IV CONT 0.4 mcg/kg/hr .Q6H4M TATYANA 16.5 mls/hr Titration Protocol 0.4 MCG/KG/HR Cefepime HCl 2 gm/ Sodium 50 mls @ 100 mls/hr 02/02/25 08:00 02/03/25 06:06 Chloride IVPB 100 mls/hr Q8HR TATYANA Administration Vancomycin HCl 1,500 mg in 500 mls @ 250 mls/hr 02/02/25 21:00 02/03/25 11:04 Vancomycin 1,500 Mg/Ns 500 Ml IVPB Infused Q12H TATYANA Infusion Multivitamins 1.25 ml/ 1,002.5 mls @ 40 mls/hr 02/02/25 14:00 02/02/25 14:59 Multivitamins 1.25 ml/ Amino IV CONT 40 mls/hr Acids/Dextrose .Q24H TATYANA Administration Protocol Dextrose 1,000 mls @ 50 mls/hr 02/02/25 10:12 Dextrose 10% IV CONT .Q20H PRN if PN is interrupted Fat Emulsion Intravenous 250 mls @ 20.833 mls/hr 02/02/25 14:00 02/03/25 03:16 Lipids 20% IVPB Infused Q24H TATYANA Infusion Dextrose 1,000 mls @ 100 mls/hr 02/02/25 10:13 Dextrose 5% 1,000 Ml IVPB PRN PRN Hypoglycemia Protocol Norepinephrine Bitartrate 8 mg in 250 mls @ 0 mls/hr 02/02/25 14:45 02/03/25 12:00 Levophed 8 Mg/D5w 250 Ml IV CONT 0 mcg/min .Q0M TATYANA 0 mls/hr Titration Protocol Insulin Aspart 2 - 5 units 02/02/25 12:00 02/03/25 12:19 Insulin Aspart (*Bkc) 100 Units/Ml SUB-Q Not Given Q6HR TATYANA Protocol Multi-Ingred Cream/Lotion/Oil/Oint 1 applic 01/28/25 09:15 02/03/25 08:49 Mineral Oil/White Petrolatum Ointment EACH EYE 1 applic Q12HR TATYANA Administration Ondansetron HCl 4 mg 01/28/25 01:51 Ondansetron Inj 4 Mg/2 Ml Vial IV PUSH Q4H PRN Nausea Sodium Chloride 10 ml 01/28/25 14:00 02/03/25 06:04 Central Line Flush IV PUSH 10 ml Q8HR TATYANA Administration Sodium Chloride 20 ml 01/28/25 06:37 Central Line Flush IV PUSH PRN PRN after blood draws Radiology Results: ITS Impressions Abdomen/Pelvis CTA 01/28/25 00:08 IMPRESSION: Findings within the liver for which malignancy is suspected. Additional findings within the rectum for which acute hemorrhage is suspected (likely secondary to anorectal varices). No findings to suggest upper GI bleeding. 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 Incidental notation is made of cholelithiasis. Abdomen X-Ray 01/28/25 13:57 IMPRESSION: 1. Nasogastric tube in stomach. Head CT 02/02/25 13:34 IMPRESSION: 1. No acute intracranial process. 2. Stable age-related changes including mild diffuse volume loss and mild scattered white matter hypoattenuation consistent with chronic small vessel ischemic disease. Chest X-Ray 02/03/25 06:34 Impression: 1: Persistent patchy bilateral airspace disease which may represent pneumonia or edema. Labs Labs: Laboratory Results - last 24 hr 02/02/25 02/02/25 02/02/25 05:51 17:28 23:35 WBC RBC Hgb Hct MCV MCH MCHC RDW Plt Count MPV Immature Gran % (Auto) Neut % (Auto) Lymph % (Auto) [place] % (Auto) Eos % (Auto) Baso % (Auto) Lymph # (Auto) [place] # (Auto) Eos # (Auto) Baso # (Auto) Abs Immat Gran (auto) Absolute Neuts (auto) Absolute Nucleated RBC Band Neutrophils % Nucleated RBC % Platelet Estimate % Immature Plt Fraction Hypochromasia Anisocytosis Macrocytosis Schistocytes PT INR APTT Puncture Site ABG pH ABG pCO2 ABG pO2 ABG PO2/FiO2 Ratio ABG HCO3 ABG O2 Saturation ABG O2 Content ABG Base Excess A-a Gradient Oxyhemoglobin Carboxyhemoglobin Methemoglobin Reduced Hemoglobin Total Hemoglobin O2 Delivery Device O2 Liters/Min Minute Volume Vent Rate Vent Mode FiO2 Tidal Volume PEEP Peak Inspir Pressure Pressure Support Sodium Potassium Chloride Carbon Dioxide Anion Gap BUN Creatinine Estim Creat Clear Calc Estimated GFR Glucose POC Capillary Glucose 151 H 169 H Lactic Acid Calcium Phosphorus Magnesium Transferrin 95 L Total Bilirubin AST ALT Alkaline Phosphatase Ammonia Total Protein Albumin Triglycerides Lipase 02/03/25 02/03/25 02/03/25 04:59 05:20 12:19 WBC 8.2 RBC 2.67 L Hgb 9.0 L Hct 28.2 L MCV 105.6 H MCH 33.7 MCHC 31.9 L RDW 22.4 H Plt Count 110 L MPV 10.1 Immature Gran % (Auto) 1.1 H Neut % (Auto) 78.4 H Lymph % (Auto) 10.9 L [place] % (Auto) 7.1 Eos % (Auto) 2.1 Baso % (Auto) 0.4 Lymph # (Auto) 0.89 L [place] # (Auto) 0.6 Eos # (Auto) 0.2 Baso # (Auto) 0.0 Abs Immat Gran (auto) 0.09 H Absolute Neuts (auto) 6.4 Absolute Nucleated RBC 0.000 Band Neutrophils % Not Reportable Nucleated RBC % 0.0 Platelet Estimate Decreased % Immature Plt Fraction 3.3 Hypochromasia 1+ Anisocytosis 1+ Macrocytosis 1+ Schistocytes None seen PT 20.2 H INR 1.7 APTT 30.2 Puncture Site Right radial ABG pH 7.478 H ABG pCO2 32.7 L ABG pO2 70.2 L ABG PO2/FiO2 Ratio 1.56 ABG HCO3 23.7 ABG O2 Saturation 95.3 ABG O2 Content 13.8 L ABG Base Excess 0.6 A-a Gradient 213.5 Oxyhemoglobin 93.6 Carboxyhemoglobin 0.4 Methemoglobin 0.2 Reduced Hemoglobin 5.8 H Total Hemoglobin 10.4 L O2 Delivery Device Ventilator O2 Liters/Min Not Reportable Minute Volume Not Reportable Vent Rate 16 Vent Mode Cmv FiO2 45 Tidal Volume 400 PEEP 8 Peak Inspir Pressure Not Reportable Pressure Support Not Reportable Sodium 144 Potassium 3.7 Chloride 113 H Carbon Dioxide 24 Anion Gap 7 BUN 45 H Creatinine 1.01 H Estim Creat Clear Calc 83 Estimated GFR 55 L Glucose 171 H POC Capillary Glucose 163 H Lactic Acid 1.7 Calcium 9.8 Phosphorus 2.4 L Magnesium 2.0 Transferrin Total Bilirubin 3.7 H AST 140 H ALT 45 H Alkaline Phosphatase 67 Ammonia < 9 L Total Protein 6.4 Albumin 3.5 Triglycerides 134 Lipase 152 Quality VTE Prophylaxis VTE prophylaxis: mechanical ordered
[2025-02-03] MEDS: FAT EMULSIONS IV 20% 250 ML 20.83 ML IVPB (13:43)
[2025-02-03] MEDS: AMINO ACIDS 5%/DEXTROSE 15% 1,000 ML with MULTIVITAMINS-12 INJ VIAL 1 1.25 ML, MULTIVIT... 40 ML IV CONT (13:43)
--- NOTE | 2025-02-03 14:35 | PM.IMPN ---
Progress Note: A&P Assessment and Plan (1) Hemorrhagic shock: Code(s): R57.8 - Other shock Status: Acute Assessment and Plan: Pt presented with rectal bleed, CT showed esophageal and rectal varices. -Transfused 2 units unmatched PRBC in the ER -hemoglobin this morning is 9.3, platelets 186 -01/28: INR 1.6, will give vitamin K -01/28: Transfused 1 unit of FFP and 1 unit of packed RBC -01/30: 1 unit of FFP and 1 unit of packed RBCs were transfused -patient adequately fluid-resuscitated -OFF pressors at this, maintain MAP > 65 mmHg or SBP > 100 mmHg for adequate end organ perfusion -01/29: Hb 7.3, INR 1.8 this morning. Transfused 1 unit of FFP and 1 unit of packed RBC, will also repeat vitamin K IVPB -01/30: Hemoglobin remained stable, decreased NG output. Discussed with GI, will continue octreotide. Discontinued Protonix infusion and IV Protonix -01/31: Hemoglobin is 9.7 this morning and stable, NG was removed 01/30 with EGD. Will continue octreotide per GI -02/01: Hemoglobin 10.1 this morning in stable, patient remains on octreotide infusion 02/02 hemoglobin 10.4 and stable. Patient remains on octreotide infusion per GI 02/03 hemoglobin stable at 9 01/28: CTA scan of the abdomen and pelvis: Findings within the liver for which malignancy is suspected. Additional findings within the rectum for which acute hemorrhage is suspected (likely secondary to anorectal varices). No findings to suggest upper GI bleeding. 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 Incidental notation is made of cholelithiasis. (2) Esophageal varices: Qualifiers: Esophageal varices bleeding: with bleeding Esophageal varices type: unspecified type Qualified Code(s): I85.01 - Esophageal varices with bleeding Code(s): I85.00 - Esophageal varices without bleeding Status: Acute Assessment and Plan: Esophageal varices as seen on CTA abdomen and pelvis. -appreciate GI evaluation -01/28: EGD: Showed actively bleeding gastric varix at the gastric cardia, a band ligation device was used to place 1 band, moderate gastritis was seen in the stomach. The gastric has a moderate portal hypertensive change. Large amount of blood was seen in the distal esophagus and the stomach the bowel and the 2nd portion of duodenum was normal with no ulcers or masses 01/30: Repeat EGD: Showed medium grade 3 varices (large varices almost occluding the esophageal lumen were present in the distal esophagus. There was no evidence of bleeding bleeding corresponding to the previous band. To more bands were placed. There was a large fundal pool of blood in the stomach. The bulb and the 2nd portion of duodenum was normal Appreciate GI following the patient, discussed with GI, will continue octreotide infusion per GI - drainage in the FMS has also slowed down, patient is not have an NG tube any more (3) Rectal varices: Code(s): K64.9 - Unspecified hemorrhoids Status: Acute Assessment and Plan: Likely related to alcoholic cirrhosis, (4) Alcoholic cirrhosis of liver with ascites: Code(s): K70.31 - Alcoholic cirrhosis of liver with ascites Status: Acute Assessment and Plan: History of alcoholic cirrhosis -LFTs and bilirubin elevated but stable -could be related to shock liver, cirrhosis, bleeding -continue ceftriaxone (01/28) for SBP prophylaxis -continue to monitor LFTs and bilirubin -INR elevated, status post vitamin K and FFP, INR is stable at 1.5 -continue to monitor (5) Airway compromise: Code(s): J98.8 - Other specified respiratory disorders Status: Acute Assessment and Plan: Patient encephalopathic with elevated ammonia level, not protecting her airway, also intubated for aspiration prevention and for EGD -01/28: Intubated patient for airway protection due to encephalopathy -currently on CMV mode of ventilation, peep of 5 and 35% FiO2 -chest x-ray and ABGs reviewed, maintain O2 sats > 92% Vent management per ICU (6) Acute kidney injury: Code(s): N17.9 - Acute kidney failure, unspecified Status: Acute Assessment and Plan: Acute kidney injury, likely related to hemorrhagic shock -low urine output, creatinine and BUN improving -off pressors, blood pressures remained stable, will allow higher MAP, for adequate end organ perfusion -continue to monitor urine output, renal function electrolytes (7) Encephalopathy: Qualifiers: Encephalopathy type: metabolic Qualified Code(s): G93.41 - Metabolic encephalopathy Code(s): G93.40 - Encephalopathy, unspecified Status: Acute Assessment and Plan: Multifactorial Likely related to hyperammonemia liver dysfunction shock -patient did receive lactulose enema on 01/31/2025, good bowel movements x2 Ammonia levels have normal Continue to monitor CT head negative EEG ordered (8) Abnormal CT of liver: Code(s): R93.2 - Abnormal findings on diagnostic imaging of liver and biliary tract Status: Acute Assessment and Plan: CT abdomen and pelvis as above: Suspicious for malignancy -AFP significantly elevated to 83,546 (0.0-9.2) -GI is following the patient: Recommended may need MRI liver protocol when more stable and extubated Plan DVT prophylaxis: SCDs, no chemoprophylaxis due to hemorrhagic shock and GI bleed Stress ulcer prophylaxis: None at this time according to GI Nutrition: NPO Code Status: Full code Subjective Date/time seen: 02/03/25 14:35 Interval history: Chart reviewed. Patient remains intubated. On Precedex drip. Off Levophed now. Review of Systems Review of Systems: ROS unobtainable: Yes unobtainable due to mental status Exam Narrative: General: Patient is intubated and sedated in no acute distress HEENT:? Pupils unequal, R>L, but reactive, sclera is icteric Neck:? supple Respiratory:? Coarse breath sounds bilaterally, decreased at bases, diffuse wheezing Cardiac:? S1 S2 normal, regular rate and rhythm Abdomen:? soft, nontender, non distended, morbidly obese, hypoactive bowel sounds Extremities:?b/l edema of lower extremities, palpable pedal pulses Neuro:? Patient is intubated, sedated, Skin:? No rash Psych:? unable to assess Objective Data Vital Signs Vital Signs: Vital Signs - 24 hr 02/02/25 14:58 02/02/25 15:15 02/02/25 15:30 Temperature Pulse Rate 62 61 64 Respiratory Rate Blood Pressure 81/51 L 92/54 L 140/77 Pulse Oximetry Oxygen Delivery Fraction of Inspired Oxygen 02/02/25 15:30 02/02/25 15:45 02/02/25 16:00 Temperature Pulse Rate 54 L 69 68 Respiratory Rate 19 20 Blood Pressure 118/70 Pulse Oximetry 92 Oxygen Delivery Mechanical Ventilation Fraction of Inspired Oxygen 35 02/02/25 16:00 02/02/25 16:00 02/02/25 16:00 Temperature 97.6 F Pulse Rate 64 68 Respiratory Rate 20 20 Blood Pressure 122/68 Pulse Oximetry 91 Oxygen Delivery Fraction of Inspired Oxygen 35 02/02/25 16:00 02/02/25 16:00 02/02/25 16:15 Temperature Pulse Rate 68 67 67 Respiratory Rate Blood Pressure 122/68 90/75 L Pulse Oximetry Oxygen Delivery Fraction of Inspired Oxygen 02/02/25 16:30 02/02/25 16:53 02/02/25 17:00 Temperature Pulse Rate 64 60 55 L Respiratory Rate 30 H Blood Pressure 109/71 Pulse Oximetry 91 Oxygen Delivery Mechanical Ventilation Fraction of Inspired Oxygen 35 02/02/25 17:00 02/02/25 17:27 02/02/25 17:30 Temperature Pulse Rate 61 61 58 L Respiratory Rate 32 H Blood Pressure 146/74 H 85/54 L Pulse Oximetry Oxygen Delivery Fraction of Inspired Oxygen 02/02/25 18:00 02/02/25 18:00 02/02/25 18:00 Temperature 98.2 F Pulse Rate 61 61 61 Respiratory Rate 19 18 Blood Pressure 110/65 110/65 Pulse Oximetry 93 Oxygen Delivery Fraction of Inspired Oxygen 02/02/25 18:00 02/02/25 18:37 02/02/25 18:37 Temperature Pulse Rate 61 60 60 Respiratory Rate 18 18 Blood Pressure Pulse Oximetry Oxygen Delivery Fraction of Inspired Oxygen 02/02/25 19:18 02/02/25 19:20 02/02/25 19:25 Temperature Pulse Rate 66 66 68 Respiratory Rate 25 H 24 H Blood Pressure Pulse Oximetry 95 Oxygen Delivery Mechanical Ventilation Fraction of Inspired Oxygen 35 02/02/25 20:00 02/02/25 20:00 02/02/25 20:00 Temperature 98.4 F Pulse Rate 65 68 Respiratory Rate 22 H Blood Pressure 102/59 L Pulse Oximetry 23 L Oxygen Delivery Fraction of Inspired Oxygen 35 02/02/25 20:00 02/02/25 20:00 02/02/25 20:25 Temperature Pulse Rate 68 69 68 Respiratory Rate 22 H Blood Pressure 103/56 L Pulse Oximetry 87 L Oxygen Delivery Mechanical Ventilation Fraction of Inspired Oxygen 45 02/02/25 20:30 02/02/25 22:00 02/02/25 22:00 Temperature Pulse Rate 74 63 63 Respiratory Rate 24 H Blood Pressure 109/64 Pulse Oximetry Oxygen Delivery Fraction of Inspired Oxygen 02/02/25 22:00 02/02/25 22:03 02/02/25 22:03 Temperature 99 F Pulse Rate 63 63 63 Respiratory Rate 19 19 19 Blood Pressure 109/64 Pulse Oximetry 94 Oxygen Delivery Fraction of Inspired Oxygen 02/02/25 22:15 02/02/25 23:20 02/03/25 00:00 Temperature 99.0 F Pulse Rate 60 54 L 55 L Respiratory Rate 19 18 Blood Pressure 91/56 L Pulse Oximetry 92 93 Oxygen Delivery Mechanical Ventilation Fraction of Inspired Oxygen 45 02/03/25 00:00 02/03/25 00:00 02/03/25 00:00 Temperature 99.2 F Pulse Rate 55 L 55 L Respiratory Rate 18 Blood Pressure 100/60 100/60 Pulse Oximetry 94 Oxygen Delivery Fraction of Inspired Oxygen 45 02/03/25 00:00 02/03/25 00:00 02/03/25 00:43 Temperature Pulse Rate 55 L 142 H 55 L Respiratory Rate 18 18 Blood Pressure Pulse Oximetry 94 Oxygen Delivery Mechanical Ventilation Fraction of Inspired Oxygen 45 02/03/25 00:43 02/03/25 02:00 02/03/25 02:00 Temperature 99.8 F H Pulse Rate 55 L 56 L 56 L Respiratory Rate 18 21 H Blood Pressure 85/68 L Pulse Oximetry 94 Oxygen Delivery Fraction of Inspired Oxygen 02/03/25 02:00 02/03/25 02:00 02/03/25 02:09 Temperature Pulse Rate 55 L 55 L 55 L Respiratory Rate 18 Blood Pressure 85/68 L Pulse Oximetry 95 Oxygen Delivery Mechanical Ventilation Fraction of Inspired Oxygen 45 02/03/25 02:15 02/03/25 02:31 02/03/25 02:45 Temperature Pulse Rate 56 L 57 L 78 Respiratory Rate 19 20 Blood Pressure 104/60 Pulse Oximetry Oxygen Delivery Fraction of Inspired Oxygen 02/03/25 03:10 02/03/25 03:15 02/03/25 03:16 Temperature 99.9 F H Pulse Rate 69 71 69 Respiratory Rate 20 21 H Blood Pressure 131/72 131/72 Pulse Oximetry 93 Oxygen Delivery Fraction of Inspired Oxygen 02/03/25 03:35 02/03/25 03:35 02/03/25 04:00 Temperature 100 F H Pulse Rate 67 68 68 Respiratory Rate 20 20 21 H Blood Pressure 124/68 Pulse Oximetry 93 Oxygen Delivery Fraction of Inspired Oxygen 02/03/25 04:00 02/03/25 04:00 02/03/25 04:00 Temperature Pulse Rate 65 65 Respiratory Rate 19 Blood Pressure 124/68 Pulse Oximetry 93 Oxygen Delivery Mechanical Ventilation Fraction of Inspired Oxygen 45 45 02/03/25 04:00 02/03/25 04:04 02/03/25 05:20 Temperature Pulse Rate 65 65 56 L Respiratory Rate 19 Blood Pressure Pulse Oximetry 95 Oxygen Delivery Mechanical Ventilation Fraction of Inspired Oxygen 45 02/03/25 06:00 02/03/25 06:00 02/03/25 06:03 Temperature 100.4 F H Pulse Rate 55 L 53 L 56 L Respiratory Rate 18 19 Blood Pressure 99/83 L Pulse Oximetry 95 Oxygen Delivery Fraction of Inspired Oxygen 02/03/25 06:03 02/03/25 06:14 02/03/25 06:49 Temperature Pulse Rate 56 L 53 L 54 L Respiratory Rate 20 18 Blood Pressure 99/83 L Pulse Oximetry Oxygen Delivery Fraction of Inspired Oxygen 02/03/25 08:00 02/03/25 08:00 02/03/25 08:00 Temperature Pulse Rate 54 L 54 L 54 L Respiratory Rate 19 19 19 Blood Pressure Pulse Oximetry 94 Oxygen Delivery Mechanical Ventilation Fraction of Inspired Oxygen 45 02/03/25 08:00 02/03/25 08:00 02/03/25 08:00 Temperature 100.8 F H Pulse Rate 54 L 54 L Respiratory Rate 19 Blood Pressure 104/66 104/66 Pulse Oximetry 94 Oxygen Delivery Fraction of Inspired Oxygen 45 02/03/25 08:00 02/03/25 08:11 02/03/25 08:16 Temperature Pulse Rate 55 L 53 L 57 L Respiratory Rate 20 Blood Pressure Pulse Oximetry 94 Oxygen Delivery Mechanical Ventilation Fraction of Inspired Oxygen 45 02/03/25 08:33 02/03/25 08:51 02/03/25 09:41 Temperature Pulse Rate 60 60 59 L Respiratory Rate 21 H 20 32 H Blood Pressure Pulse Oximetry Oxygen Delivery Fraction of Inspired Oxygen 02/03/25 10:00 02/03/25 10:00 02/03/25 10:00 Temperature 100.2 F H Pulse Rate 57 L 57 L 57 L Respiratory Rate 19 Blood Pressure 110/66 110/66 Pulse Oximetry 93 Oxygen Delivery Fraction of Inspired Oxygen 02/03/25 10:11 02/03/25 10:42 02/03/25 10:52 Temperature Pulse Rate 57 L 57 L 56 L Respiratory Rate 19 16 Blood Pressure Pulse Oximetry 93 Oxygen Delivery Mechanical Ventilation Fraction of Inspired Oxygen 45 02/03/25 11:08 02/03/25 12:00 02/03/25 12:00 Temperature Pulse Rate 57 L 55 L 55 L Respiratory Rate 18 18 Blood Pressure 103/65 Pulse Oximetry Oxygen Delivery Fraction of Inspired Oxygen 02/03/25 12:00 02/03/25 12:00 02/03/25 12:00 Temperature 100.1 F H Pulse Rate 88 55 L Respiratory Rate 21 H 21 H Blood Pressure 103/65 Pulse Oximetry 94 94 Oxygen Delivery Mechanical Ventilation Fraction of Inspired Oxygen 45 45 02/03/25 12:00 02/03/25 13:59 02/03/25 14:00 Temperature 100.2 F H Pulse Rate 53 L 53 L 52 L Respiratory Rate 18 22 H Blood Pressure 97/63 L Pulse Oximetry 95 Oxygen Delivery Fraction of Inspired Oxygen 02/03/25 14:00 02/03/25 14:00 02/03/25 14:03 Temperature Pulse Rate 52 L 52 L 53 L Respiratory Rate 25 H Blood Pressure 97/63 L Pulse Oximetry Oxygen Delivery Fraction of Inspired Oxygen 02/03/25 14:05 02/03/25 14:12 Temperature Pulse Rate 53 L 56 L Respiratory Rate 21 H Blood Pressure Pulse Oximetry 93 Oxygen Delivery Mechanical Ventilation Fraction of Inspired Oxygen 45 Intake/Output Intake/Output: Intake & Output 01/31/25 02/01/25 02/02/25 02/03/25 23:59 23:59 23:59 23:59 Intake Total 533.5 780.8 2226.1 2285.4 Output Total 1800 1050 700 425 Balance -1266.5 -269.2 1526.1 1860.4 Meds/Results Medications: Active Medications Generic Name Dose Route Start Last Admin Trade Name Freq PRN Reason Stop Dose Admin Acetaminophen 650 mg 02/01/25 14:06 02/01/25 15:42 Acetaminophen 650 Mg Suppository RECTAL 650 mg Q6H PRN Administration Mild Pain (1-3) or Fever Acetylcysteine 200 mg 02/01/25 14:00 02/03/25 14:02 Acetylcysteine 20% Inhal Soln 800 Mg/4 Ml Vial INHALATION 200 mg Q6HRT TATYANA Administration Albuterol/Ipratropium 3 ml 01/30/25 14:00 02/03/25 14:01 Ipratropium 0.5 Mg/Albuterol Sulfate 2.5 Mg Ampul.Neb 3 Ml INHALATION 3 ml Q6HRT TATYANA Administration Alteplase, Recombinant 2 mg 02/02/25 10:10 Alteplase 2 Mg Vial (Cathflo) IV PUSH ONCE PRN Line Occlusion Dextrose 12.5 gm 02/02/25 10:13 Dextrose 50% 25 Gm/50 Ml Syringe IV PUSH PRN PRN Hypoglycemia Protocol Glucagon 1 mg 02/02/25 10:13 Glucagon For Inj 1 Mg Vial IM PRN PRN Hypoglycemia Protocol Glucose 15 gm 02/02/25 10:13 Glucose Oral Gel 15 Gm Of Glucse In 37.5 Gm Tube PO PRN PRN Hypoglycemia Protocol Dexmedetomidine HCl 400 mcg in 100 mls @ 16.5 mls/hr 01/30/25 10:30 02/03/25 13:59 Precedex 400 Mcg/100 Ml IV CONT 0.4 mcg/kg/hr .Q6H4M TATYANA 16.5 mls/hr Titration Protocol 0.4 MCG/KG/HR Cefepime HCl 2 gm/ Sodium 50 mls @ 100 mls/hr 02/02/25 08:00 02/03/25 14:28 Chloride IVPB Infused Q8HR TATYANA Infusion Vancomycin HCl 1,500 mg in 500 mls @ 250 mls/hr 02/02/25 21:00 02/03/25 11:04 Vancomycin 1,500 Mg/Ns 500 Ml IVPB Infused Q12H TATYANA Infusion Multivitamins 1.25 ml/ 1,002.5 mls @ 40 mls/hr 02/02/25 14:00 02/03/25 13:43 Multivitamins 1.25 ml/ Amino IV CONT 40 mls/hr Acids/Dextrose .Q24H TATYANA Administration Protocol Dextrose 1,000 mls @ 50 mls/hr 02/02/25 10:12 Dextrose 10% IV CONT .Q20H PRN if PN is interrupted Fat Emulsion Intravenous 250 mls @ 20.833 mls/hr 02/02/25 14:00 02/03/25 13:43 Lipids 20% IVPB 20.83 mls/hr Q24H TATYANA Administration Dextrose 1,000 mls @ 100 mls/hr 02/02/25 10:13 Dextrose 5% 1,000 Ml IVPB PRN PRN Hypoglycemia Protocol Norepinephrine Bitartrate 8 mg in 250 mls @ 0 mls/hr 02/02/25 14:45 02/03/25 14:00 Levophed 8 Mg/D5w 250 Ml IV CONT 0 mcg/min .Q0M TATYANA 0 mls/hr Titration Protocol Insulin Aspart 2 - 5 units 02/02/25 12:00 02/03/25 12:19 Insulin Aspart (*Bkc) 100 Units/Ml SUB-Q Not Given Q6HR TATYANA Protocol Multi-Ingred Cream/Lotion/Oil/Oint 1 applic 01/28/25 09:15 02/03/25 08:49 Mineral Oil/White Petrolatum Ointment EACH EYE 1 applic Q12HR TATYANA Administration Ondansetron HCl 4 mg 01/28/25 01:51 Ondansetron Inj 4 Mg/2 Ml Vial IV PUSH Q4H PRN Nausea Sodium Chloride 10 ml 01/28/25 14:00 02/03/25 13:45 Central Line Flush IV PUSH 10 ml Q8HR TATYANA Administration Sodium Chloride 20 ml 01/28/25 06:37 Central Line Flush IV PUSH PRN PRN after blood draws Radiology Results: ITS Impressions Abdomen/Pelvis CTA 01/28/25 00:08 IMPRESSION: Findings within the liver for which malignancy is suspected. Additional findings within the rectum for which acute hemorrhage is suspected (likely secondary to anorectal varices). No findings to suggest upper GI bleeding. 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 Incidental notation is made of cholelithiasis. Abdomen X-Ray 01/28/25 13:57 IMPRESSION: 1. Nasogastric tube in stomach. Head CT 02/02/25 13:34 IMPRESSION: 1. No acute intracranial process. 2. Stable age-related changes including mild diffuse volume loss and mild scattered white matter hypoattenuation consistent with chronic small vessel ischemic disease. Chest X-Ray 02/03/25 06:34 Impression: 1: Persistent patchy bilateral airspace disease which may represent pneumonia or edema. Labs Labs: Laboratory Results - last 24 hr 02/02/25 02/02/25 02/02/25 05:51 17:28 23:35 WBC RBC Hgb Hct MCV MCH MCHC RDW Plt Count MPV Immature Gran % (Auto) Neut % (Auto) Lymph % (Auto) [place] % (Auto) Eos % (Auto) Baso % (Auto) Lymph # (Auto) [place] # (Auto) Eos # (Auto) Baso # (Auto) Abs Immat Gran (auto) Absolute Neuts (auto) Absolute Nucleated RBC Band Neutrophils % Nucleated RBC % Platelet Estimate % Immature Plt Fraction Hypochromasia Anisocytosis Macrocytosis Schistocytes PT INR APTT Puncture Site ABG pH ABG pCO2 ABG pO2 ABG PO2/FiO2 Ratio ABG HCO3 ABG O2 Saturation ABG O2 Content ABG Base Excess A-a Gradient Oxyhemoglobin Carboxyhemoglobin Methemoglobin Reduced Hemoglobin Total Hemoglobin O2 Delivery Device O2 Liters/Min Minute Volume Vent Rate Vent Mode FiO2 Tidal Volume PEEP Peak Inspir Pressure Pressure Support Sodium Potassium Chloride Carbon Dioxide Anion Gap BUN Creatinine Estim Creat Clear Calc Estimated GFR Glucose POC Capillary Glucose 151 H 169 H Lactic Acid Calcium Phosphorus Magnesium Transferrin 95 L Total Bilirubin AST ALT Alkaline Phosphatase Ammonia Total Protein Albumin Triglycerides Lipase 02/03/25 02/03/25 02/03/25 04:59 05:20 12:19 WBC 8.2 RBC 2.67 L Hgb 9.0 L Hct 28.2 L MCV 105.6 H MCH 33.7 MCHC 31.9 L RDW 22.4 H Plt Count 110 L MPV 10.1 Immature Gran % (Auto) 1.1 H Neut % (Auto) 78.4 H Lymph % (Auto) 10.9 L [place] % (Auto) 7.1 Eos % (Auto) 2.1 Baso % (Auto) 0.4 Lymph # (Auto) 0.89 L [place] # (Auto) 0.6 Eos # (Auto) 0.2 Baso # (Auto) 0.0 Abs Immat Gran (auto) 0.09 H Absolute Neuts (auto) 6.4 Absolute Nucleated RBC 0.000 Band Neutrophils % Not Reportable Nucleated RBC % 0.0 Platelet Estimate Decreased % Immature Plt Fraction 3.3 Hypochromasia 1+ Anisocytosis 1+ Macrocytosis 1+ Schistocytes None seen PT 20.2 H INR 1.7 APTT 30.2 Puncture Site Right radial ABG pH 7.478 H ABG pCO2 32.7 L ABG pO2 70.2 L ABG PO2/FiO2 Ratio 1.56 ABG HCO3 23.7 ABG O2 Saturation 95.3 ABG O2 Content 13.8 L ABG Base Excess 0.6 A-a Gradient 213.5 Oxyhemoglobin 93.6 Carboxyhemoglobin 0.4 Methemoglobin 0.2 Reduced Hemoglobin 5.8 H Total Hemoglobin 10.4 L O2 Delivery Device Ventilator O2 Liters/Min Not Reportable Minute Volume Not Reportable Vent Rate 16 Vent Mode Cmv FiO2 45 Tidal Volume 400 PEEP 8 Peak Inspir Pressure Not Reportable Pressure Support Not Reportable Sodium 144 Potassium 3.7 Chloride 113 H Carbon Dioxide 24 Anion Gap 7 BUN 45 H Creatinine 1.01 H Estim Creat Clear Calc 83 Estimated GFR 55 L Glucose 171 H POC Capillary Glucose 163 H Lactic Acid 1.7 Calcium 9.8 Phosphorus 2.4 L Magnesium 2.0 Transferrin Total Bilirubin 3.7 H AST 140 H ALT 45 H Alkaline Phosphatase 67 Ammonia < 9 L Total Protein 6.4 Albumin 3.5 Triglycerides 134 Lipase 152
[2025-02-03] MEDS: dexmedeTOMIDine 400 MCG/100 ML 400 MCG/100 ML BAG 49.5 MCG IV CONT (22:18)
[2025-02-04] VITALS (61 sets, daily range): BP systolic 74–130; BP diastolic 44–84; PULSE 46–76; RESP 16–30; TEMP 37.2–37.8; O2SAT 92–99
[2025-02-04] MEDS: dexmedeTOMIDine 400 MCG/100 ML 400 MCG/100 ML BAG 61.88 MCG IV CONT ×3 (00:11→03:12)
[2025-02-04] MEDS: ACETYLCYSTEINE 20% INHAL SOLN 800 MG/4 ML VIAL 200 MG INHALATION ×3 (01:15→20:04)
[2025-02-04] MEDS: IPRATROPIUM 0.5 MG/ALBUTEROL SULFATE 2.5 MG AMPUL.NEB 3 ML INHALATION ×3 (01:16→20:03)
[2025-02-04] MEDS: VANCOMYCIN 1,500 MG/NS 500 ML 1,500 MG/500 ML BAG 250 MG IVPB ×2 (01:39→20:38)
[2025-02-04 04:34] LABS: Hematocrit 30.0 % (37.0-47.0); Hemoglobin 9.5 g/dL (12.0-15.0); Immature Granulocyte Percent A 1.1 % (0-0.5); Lymphocytes Absolute Auto 1.01 K/mm3 (0.9-3.2); Mean Corpuscular HGB Conc 31.7 g/dl (32-36); Mean Corpuscular Hemoglobin 33.9 pg (26-34); Mean Corpuscular Volume 107.1 fl (80-100); Nucleated Red Blood Cells Absolute Auto 0.030 K/mm3 (0.0-0.012); Nucleated Red Blood Cells Perc 0.3 % (0.0-0.2); Platelet Count Result 101 k/mm3 (150-375); Red Blood Count 2.80 M/mm3 (4.2-5.4); White Blood Count 10.8 K/mm3 (4.5-10.0)
[2025-02-04 04:45] LABS: Ammonia 10 umol/L (9-30); INR 1.7; Prothrombin Time 20.0 Seconds (11.1-14.7)
[2025-02-04 04:46] LABS: Partial Thromboplastin Time 28.8 Seconds (22.3-36.8)
[2025-02-04 04:49] LABS: Alanine Aminotransferase 46 U/L (6-35); Albumin Level 3.0 g/dL (3.5-5.1); Alkaline Phosphatase 65 U/L (38-126); Anion Gap 8 mmol/L (4-12); Aspartate Amino Transferase 152 U/L (14-36); Bilirubin,Total 3.5 mg/dL (0.2-1.3); Blood Urea Nitrogen 39 mg/dL (7-17); Calcium 9.4 mg/dL (8.4-10.2); Carbon Dioxide 21 mmol/L (22-30); Chloride 116 mmol/L (98-107); Estimated CRCL calculation 90 ml/min; Estimated Glomerular Filt Rate > 60; Glucose 182 mg/dL (65-110); Magnesium 1.9 mg/dL (1.6-2.3); Potassium 3.6 mmol/L (3.4-5.0); Sodium 145 mmol/L (137-145); Total Protein 6.2 g/dL (6.3-8.2)
[2025-02-04] MEDS: dexmedeTOMIDine 400 MCG/100 ML 400 MCG/100 ML BAG 53.63 MCG IV CONT (04:55)
[2025-02-04] MEDS: CENTRAL LINE FLUSH 10 ML IV PUSH ×3 (04:59→20:39)
[2025-02-04] MEDS: CEFEPIME 2 GM in SODIUM CHLORIDE 0.9% IV 50 ML 100 ML IVPB ×3 (04:59→20:38)
[2025-02-04 05:00] LABS: Band Neutrophils Percent 0 % (0-6); Polychromasia 1+
[2025-02-04 05:01] LABS: Anisocytosis 1+; Ovalocytes 1+; Schistocytes None Seen
[2025-02-04 05:08] LABS: Alveolar/Arterial O2 Gradient 136.2 mmHg; Carboxyhemoglobin 0.4 % THb (0-2.0); Fractional Inspired Oxygen 35 %; HCO3 ABG 21.1 mEq/l (22.0-26.0); Methemoglobin ABG 0.1 %THb (0-1.5); Oxygen Content ABG 14.5 %vol (16.0-22.0); Oxygen Saturation ABG 96.1 % (95.0-100.0); PCO2 ABG 31.1 mmHg (35.0-45.0); PO2 ABG 77.2 mmHg (80.0-100.0); PO2 FiO2 Ratio Arterial Blood 2.21 %; Reduced Hemoglobin 5.5 %THb (0-5.0)
[2025-02-04 05:10] LABS: Modified Allen's Test Pass; Site Drawn RIGHT RADIAL
[2025-02-04 05:11] LABS: Arterial Blood Gas Tidal Volume 400 ml; Arterial Blood Gas Ventilator rate 16 /MIN
[2025-02-04] MEDS: dexmedeTOMIDine 400 MCG/100 ML 400 MCG/100 ML BAG 37.13 MCG IV CONT (06:57)
--- NOTE | 2025-02-04 07:21 | P.PNGI_ITS ---
Progress Note: A&P Assessment and Plan (1) Esophageal varices: Qualifiers: Esophageal varices bleeding: with bleeding Esophageal varices type: unspecified type Qualified Code(s): I85.01 - Esophageal varices with bleeding Code(s): I85.00 - Esophageal varices without bleeding Status: Acute Assessment and Plan: The patient remains hemodynamically stable, off pressors and today's hemoglobin is 9.5. no evidence of rebleeding. Due to recent esophageal banding, nasogastric tube placement was not recommended therefore she is receiving TPN. The main problem is that despite being off sedation except for minimal doses of Precedex, the patient is not waking up, raising concern for cerebral damage. An EEG is Pending for today. She is made a DNR based on family's agreement regarding poor prognosis due to a massive infiltration of the liver from hepatocellular carcinoma. Subjective Date/time seen: 02/04/25 07:21 Objective Data Vital Signs Vital Signs: Vital Signs - 24 hr 02/03/25 08:00 02/03/25 08:00 02/03/25 08:00 Temperature Pulse Rate 54 L 54 L 54 L Respiratory Rate 19 19 19 Blood Pressure Pulse Oximetry 94 Oxygen Delivery Mechanical Ventilation Fraction of Inspired Oxygen 45 02/03/25 08:00 02/03/25 08:00 02/03/25 08:00 Temperature 100.8 F H Pulse Rate 54 L 54 L Respiratory Rate 19 Blood Pressure 104/66 104/66 Pulse Oximetry 94 Oxygen Delivery Fraction of Inspired Oxygen 45 02/03/25 08:00 02/03/25 08:11 02/03/25 08:16 Temperature Pulse Rate 55 L 53 L 57 L Respiratory Rate 20 Blood Pressure Pulse Oximetry 94 Oxygen Delivery Mechanical Ventilation Fraction of Inspired Oxygen 45 02/03/25 08:33 02/03/25 08:51 02/03/25 09:41 Temperature Pulse Rate 60 60 59 L Respiratory Rate 21 H 20 32 H Blood Pressure Pulse Oximetry Oxygen Delivery Fraction of Inspired Oxygen 02/03/25 10:00 02/03/25 10:00 02/03/25 10:00 Temperature 100.2 F H Pulse Rate 57 L 57 L 57 L Respiratory Rate 19 Blood Pressure 110/66 110/66 Pulse Oximetry 93 Oxygen Delivery Fraction of Inspired Oxygen 02/03/25 10:11 02/03/25 10:42 02/03/25 10:52 Temperature Pulse Rate 57 L 57 L 56 L Respiratory Rate 19 16 Blood Pressure Pulse Oximetry 93 Oxygen Delivery Mechanical Ventilation Fraction of Inspired Oxygen 45 02/03/25 11:08 02/03/25 12:00 02/03/25 12:00 Temperature Pulse Rate 57 L 55 L 55 L Respiratory Rate 18 18 Blood Pressure 103/65 Pulse Oximetry Oxygen Delivery Fraction of Inspired Oxygen 02/03/25 12:00 02/03/25 12:00 02/03/25 12:00 Temperature 100.1 F H Pulse Rate 88 55 L Respiratory Rate 21 H 21 H Blood Pressure 103/65 Pulse Oximetry 94 94 Oxygen Delivery Mechanical Ventilation Fraction of Inspired Oxygen 45 45 02/03/25 12:00 02/03/25 13:59 02/03/25 14:00 Temperature 100.2 F H Pulse Rate 53 L 53 L 52 L Respiratory Rate 18 22 H Blood Pressure 97/63 L Pulse Oximetry 95 Oxygen Delivery Fraction of Inspired Oxygen 02/03/25 14:00 02/03/25 14:00 02/03/25 14:03 Temperature Pulse Rate 52 L 52 L 53 L Respiratory Rate 25 H Blood Pressure 97/63 L Pulse Oximetry Oxygen Delivery Fraction of Inspired Oxygen 02/03/25 14:05 02/03/25 14:12 02/03/25 16:00 Temperature Pulse Rate 53 L 56 L 57 L Respiratory Rate 21 H Blood Pressure 107/64 Pulse Oximetry 93 Oxygen Delivery Mechanical Ventilation Fraction of Inspired Oxygen 45 02/03/25 16:00 02/03/25 16:00 02/03/25 16:00 Temperature 99.7 F H Pulse Rate 59 L 59 L Respiratory Rate 21 H 21 H Blood Pressure 107/64 Pulse Oximetry 92 92 Oxygen Delivery Mechanical Ventilation Fraction of Inspired Oxygen 45 45 02/03/25 16:00 02/03/25 16:00 02/03/25 16:28 Temperature Pulse Rate 59 L 58 L 58 L Respiratory Rate 21 H 26 H Blood Pressure Pulse Oximetry Oxygen Delivery Fraction of Inspired Oxygen 02/03/25 16:28 02/03/25 16:56 02/03/25 18:00 Temperature Pulse Rate 58 L 55 L 55 L Respiratory Rate 26 H Blood Pressure Pulse Oximetry 94 Oxygen Delivery Mechanical Ventilation Fraction of Inspired Oxygen 45 02/03/25 18:00 02/03/25 18:00 02/03/25 18:00 Temperature 99.9 F H Pulse Rate 55 L 55 L 55 L Respiratory Rate 22 H 22 H Blood Pressure 109/62 109/62 Pulse Oximetry 92 Oxygen Delivery Fraction of Inspired Oxygen 02/03/25 19:15 02/03/25 19:28 02/03/25 19:31 Temperature Pulse Rate 65 55 L 55 L Respiratory Rate 24 H 25 H Blood Pressure Pulse Oximetry 93 Oxygen Delivery Mechanical Ventilation Fraction of Inspired Oxygen 45 02/03/25 19:34 02/03/25 19:36 02/03/25 19:52 Temperature 99.8 F H Pulse Rate 59 L 63 Respiratory Rate 22 H 22 H Blood Pressure 107/64 Pulse Oximetry 93 90 Oxygen Delivery Mechanical Ventilation Fraction of Inspired Oxygen 45 45 02/03/25 19:57 02/03/25 19:58 02/03/25 20:00 Temperature Pulse Rate 65 62 62 Respiratory Rate 24 H 24 H 24 H Blood Pressure Pulse Oximetry Oxygen Delivery Fraction of Inspired Oxygen 02/03/25 20:00 02/03/25 20:09 02/03/25 20:09 Temperature Pulse Rate 63 65 65 Respiratory Rate 30 H 28 H Blood Pressure Pulse Oximetry Oxygen Delivery Fraction of Inspired Oxygen 02/03/25 22:00 02/03/25 22:00 02/03/25 22:00 Temperature 99.3 F Pulse Rate 67 59 L 59 L Respiratory Rate 24 H 22 H Blood Pressure 108/61 Pulse Oximetry 92 Oxygen Delivery Fraction of Inspired Oxygen 02/03/25 22:00 02/03/25 22:18 02/03/25 22:18 Temperature 99.3 F Pulse Rate 59 L 57 L 56 L Respiratory Rate 22 H 22 H 21 H Blood Pressure 108/61 Pulse Oximetry 90 Oxygen Delivery Fraction of Inspired Oxygen 02/03/25 22:33 02/03/25 23:30 02/03/25 23:37 Temperature Pulse Rate 55 L 68 55 L Respiratory Rate 26 H 21 H Blood Pressure Pulse Oximetry 93 95 Oxygen Delivery Mechanical Ventilation Mechanical Ventilation Fraction of Inspired Oxygen 45 45 02/03/25 23:41 02/04/25 00:00 02/04/25 00:00 Temperature 99.3 F Pulse Rate 54 L 54 L Respiratory Rate 18 Blood Pressure 104/66 Pulse Oximetry 92 Oxygen Delivery Fraction of Inspired Oxygen 45 02/04/25 00:00 02/04/25 00:11 02/04/25 00:11 Temperature Pulse Rate 60 53 L 54 L Respiratory Rate 22 H 23 H 23 H Blood Pressure Pulse Oximetry Oxygen Delivery Fraction of Inspired Oxygen 02/04/25 01:16 02/04/25 01:21 02/04/25 01:38 Temperature Pulse Rate 52 L 52 L 57 L Respiratory Rate 26 H 22 H Blood Pressure Pulse Oximetry 93 Oxygen Delivery Mechanical Ventilation Fraction of Inspired Oxygen 45 02/04/25 01:39 02/04/25 01:39 02/04/25 02:00 Temperature Pulse Rate 58 L 58 L 59 L Respiratory Rate 21 H 21 H Blood Pressure Pulse Oximetry Oxygen Delivery Fraction of Inspired Oxygen 02/04/25 02:00 02/04/25 02:00 02/04/25 03:12 Temperature 99.1 F Pulse Rate 59 L 59 L 57 L Respiratory Rate 18 22 H 22 H Blood Pressure 103/66 Pulse Oximetry 96 Oxygen Delivery Fraction of Inspired Oxygen 02/04/25 03:12 02/04/25 03:45 02/04/25 04:00 Temperature Pulse Rate 57 L 52 L Respiratory Rate 22 H 22 H Blood Pressure Pulse Oximetry 98 Oxygen Delivery Mechanical Ventilation Fraction of Inspired Oxygen 45 45 02/04/25 04:00 02/04/25 04:00 02/04/25 04:00 Temperature 98.9 F Pulse Rate 51 L 51 L 51 L Respiratory Rate 22 H 22 H Blood Pressure 102/66 Pulse Oximetry 98 Oxygen Delivery Fraction of Inspired Oxygen 02/04/25 04:29 02/04/25 04:53 02/04/25 04:55 Temperature Pulse Rate 48 L 48 L 48 L Respiratory Rate 24 H 26 H 30 H Blood Pressure Pulse Oximetry Oxygen Delivery Fraction of Inspired Oxygen 02/04/25 05:12 02/04/25 05:56 02/04/25 06:00 Temperature 99.4 F Pulse Rate 47 L 47 L 46 L Respiratory Rate 22 H Blood Pressure 103/67 Pulse Oximetry 98 98 Oxygen Delivery Mechanical Ventilation Fraction of Inspired Oxygen 45 02/04/25 06:00 02/04/25 06:30 02/04/25 06:57 Temperature Pulse Rate 46 L 46 L 47 L Respiratory Rate 19 28 H 28 H Blood Pressure Pulse Oximetry Oxygen Delivery Fraction of Inspired Oxygen 02/04/25 06:57 Temperature Pulse Rate 47 L Respiratory Rate 30 H Blood Pressure Pulse Oximetry Oxygen Delivery Fraction of Inspired Oxygen Intake/Output Intake/Output: Intake & Output 02/01/25 02/02/25 02/03/25 02/04/25 23:59 23:59 23:59 23:59 Intake Total 780.8 2284.5 2627.0 1224.5 Output Total 1050 700 925 350 Balance -269.2 1584.5 1702.0 874.5 Meds/Results Medications: Active Medications Generic Name Dose Route Start Last Admin Trade Name Freq PRN Reason Stop Dose Admin Acetaminophen 650 mg 02/01/25 14:06 02/01/25 15:42 Acetaminophen 650 Mg Suppository RECTAL 650 mg Q6H PRN Administration Mild Pain (1-3) or Fever Acetylcysteine 200 mg 02/01/25 14:00 02/04/25 01:15 Acetylcysteine 20% Inhal Soln 800 Mg/4 Ml Vial INHALATION 200 mg Q6HRT TATYANA Administration Albuterol/Ipratropium 3 ml 01/30/25 14:00 02/04/25 01:16 Ipratropium 0.5 Mg/Albuterol Sulfate 2.5 Mg Ampul.Neb 3 Ml INHALATION 3 ml Q6HRT TATYANA Administration Alteplase, Recombinant 2 mg 02/02/25 10:10 Alteplase 2 Mg Vial (Cathflo) IV PUSH ONCE PRN Line Occlusion Dextrose 12.5 gm 02/02/25 10:13 Dextrose 50% 25 Gm/50 Ml Syringe IV PUSH PRN PRN Hypoglycemia Protocol Glucagon 1 mg 02/02/25 10:13 Glucagon For Inj 1 Mg Vial IM PRN PRN Hypoglycemia Protocol Glucose 15 gm 02/02/25 10:13 Glucose Oral Gel 15 Gm Of Glucse In 37.5 Gm Tube PO PRN PRN Hypoglycemia Protocol Dexmedetomidine HCl 400 mcg in 100 mls @ 37.125 mls/hr 01/30/25 10:30 02/04/25 06:57 Precedex 400 Mcg/100 Ml IV CONT 0.9 mcg/kg/hr .Q2H42M TATYANA 37.13 mls/hr Administration Protocol 0.9 MCG/KG/HR Cefepime HCl 2 gm/ Sodium 50 mls @ 100 mls/hr 02/02/25 08:00 02/04/25 05:29 Chloride IVPB Infused Q8HR TATYANA Infusion Multivitamins 1.25 ml/ 1,002.5 mls @ 40 mls/hr 02/02/25 14:00 02/03/25 13:43 Multivitamins 1.25 ml/ Amino IV CONT 40 mls/hr Acids/Dextrose .Q24H TATYANA Administration Protocol Dextrose 1,000 mls @ 50 mls/hr 02/02/25 10:12 Dextrose 10% IV CONT .Q20H PRN if PN is interrupted Fat Emulsion Intravenous 250 mls @ 20.833 mls/hr 02/02/25 14:00 02/04/25 01:45 Lipids 20% IVPB Infused Q24H TATYANA Infusion Dextrose 1,000 mls @ 100 mls/hr 02/02/25 10:13 Dextrose 5% 1,000 Ml IVPB PRN PRN Hypoglycemia Protocol Vancomycin HCl 1,500 mg in 500 mls @ 250 mls/hr 02/04/25 03:00 02/04/25 03:40 Vancomycin 1,500 Mg/Ns 500 Ml IVPB Infused Q18H TATYANA Infusion Insulin Aspart 2 - 5 units 02/02/25 12:00 02/04/25 06:07 Insulin Aspart (*Bkc) 100 Units/Ml SUB-Q Not Given Q6HR TATYANA Protocol Multi-Ingred Cream/Lotion/Oil/Oint 1 applic 01/28/25 09:15 02/03/25 20:11 Mineral Oil/White Petrolatum Ointment EACH EYE 1 applic Q12HR TATYANA Administration Ondansetron HCl 4 mg 01/28/25 01:51 Ondansetron Inj 4 Mg/2 Ml Vial IV PUSH Q4H PRN Nausea Sodium Chloride 10 ml 01/28/25 14:00 02/04/25 04:59 Central Line Flush IV PUSH 10 ml Q8HR TATYANA Administration Sodium Chloride 20 ml 01/28/25 06:37 Central Line Flush IV PUSH PRN PRN after blood draws Radiology Results: ITS Impressions Abdomen/Pelvis CTA 01/28/25 00:08 IMPRESSION: Findings within the liver for which malignancy is suspected. Additional findings within the rectum for which acute hemorrhage is suspected (likely secondary to anorectal varices). No findings to suggest upper GI bleeding. 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 Incidental notation is made of cholelithiasis. Abdomen X-Ray 01/28/25 13:57 IMPRESSION: 1. Nasogastric tube in stomach. Head CT 02/02/25 13:34 IMPRESSION: 1. No acute intracranial process. 2. Stable age-related changes including mild diffuse volume loss and mild scattered white matter hypoattenuation consistent with chronic small vessel ischemic disease. Chest X-Ray 02/04/25 06:28 Impression: 1: Interval progression of diffuse bilateral airspace disease which may represent edema and/or pneumonia. Labs Labs: Laboratory Results - last 24 hr 02/03/25 02/03/25 02/03/25 12:19 17:20 19:47 WBC RBC Hgb Hct MCV MCH MCHC RDW Plt Count MPV Immature Gran % (Auto) Neut % (Auto) Lymph % (Auto) Alfalfa % (Auto) Eos % (Auto) Baso % (Auto) Lymph # (Auto) Alfalfa # (Auto) Eos # (Auto) Baso # (Auto) Abs Immat Gran (auto) Absolute Neuts (auto) Absolute Nucleated RBC Band Neutrophils % Nucleated RBC % Platelet Estimate Polychromasia Anisocytosis Ovalocytes Schistocytes PT INR APTT Puncture Site ABG pH ABG pCO2 ABG pO2 ABG PO2/FiO2 Ratio ABG HCO3 ABG O2 Saturation ABG O2 Content ABG Base Excess A-a Gradient Oxyhemoglobin Carboxyhemoglobin Methemoglobin Reduced Hemoglobin Total Hemoglobin O2 Delivery Device O2 Liters/Min Minute Volume Vent Rate Vent Mode FiO2 Tidal Volume PEEP Peak Inspir Pressure Pressure Support Sodium Potassium Chloride Carbon Dioxide Anion Gap BUN Creatinine Estim Creat Clear Calc Estimated GFR Glucose POC Capillary Glucose 163 H 169 H Calcium Phosphorus Magnesium Total Bilirubin AST ALT Alkaline Phosphatase Ammonia Total Protein Albumin Vancomycin Trough 21.8 H 02/03/25 02/04/25 02/04/25 23:25 04:24 04:59 WBC 10.8 H RBC 2.80 L Hgb 9.5 L Hct 30.0 L MCV 107.1 H MCH 33.9 MCHC 31.7 L RDW 22.4 H Plt Count 101 L MPV 10.4 Immature Gran % (Auto) 1.1 H Neut % (Auto) 82.5 H Lymph % (Auto) 9.4 L Alfalfa % (Auto) 5.8 Eos % (Auto) 0.9 Baso % (Auto) 0.3 Lymph # (Auto) 1.01 Alfalfa # (Auto) 0.6 Eos # (Auto) 0.1 Baso # (Auto) 0.0 Abs Immat Gran (auto) 0.12 H Absolute Neuts (auto) 8.9 H Absolute Nucleated RBC 0.030 H Band Neutrophils % 0 Nucleated RBC % 0.3 H Platelet Estimate Decreased Polychromasia 1+ Anisocytosis 1+ Ovalocytes 1+ Schistocytes None seen PT 20.0 H INR 1.7 APTT 28.8 Puncture Site Right radial ABG pH 7.449 ABG pCO2 31.1 L ABG pO2 77.2 L ABG PO2/FiO2 Ratio 2.21 ABG HCO3 21.1 L ABG O2 Saturation 96.1 ABG O2 Content 14.5 L ABG Base Excess -2.2 A-a Gradient 136.2 Oxyhemoglobin 94.0 Carboxyhemoglobin 0.4 Methemoglobin 0.1 Reduced Hemoglobin 5.5 H Total Hemoglobin 10.9 L O2 Delivery Device Ventilator O2 Liters/Min Not Reportable Minute Volume Not Reportable Vent Rate 16 Vent Mode Assist control FiO2 35 Tidal Volume 400 PEEP 8 Peak Inspir Pressure Not Reportable Pressure Support Not Reportable Sodium 145 Potassium 3.6 Chloride 116 H Carbon Dioxide 21 L Anion Gap 8 BUN 39 H Creatinine 0.93 Estim Creat Clear Calc 90 Estimated GFR > 60 Glucose 182 H POC Capillary Glucose 187 H Calcium 9.4 Phosphorus 2.3 L Magnesium 1.9 Total Bilirubin 3.5 H AST 152 H ALT 46 H Alkaline Phosphatase 65 Ammonia 10 Total Protein 6.2 L Albumin 3.0 L Vancomycin Trough
[2025-02-04] MEDS: FUROSEMIDE INJ 40 MG/4 ML VIAL IV PUSH (08:12)
[2025-02-04] MEDS: POTASSIUM PHOS,M-BASIC-D-BASIC 20 MMOL in SODIUM CHLORIDE 0.9% IV 250 ML 64.17 MMOL IVPB (08:12)
[2025-02-04] MEDS: PHYTONADIONE ADULT INJ 10 MG in DEXTROSE 5% IN WATER 50 ML 68 MG IVPB (08:27)
[2025-02-04] MEDS: MINERAL OIL/WHITE PETROLATUM OINTMENT 1 APPLIC EACH EYE ×2 (08:31→20:38)
--- NOTE | 2025-02-04 09:35 | WPDNEUROLOGY ---
Neurology EEG Report General Information Date of Study: 02/04/25 TEST EEG DIAGNOSIS Encephalopathy CONDITION OF RECORDING Comatose EEG NUMBER [id number] CLINICAL HISTORY 64 years old lady admitted to the hospital through the ER with the complaints of GI bleed. At present patient is on sedation and and EEG is being done to evaluate the mental functions. EEG DESCRIPTION Whole record consists of diffuse low-voltage to medium voltage 1 to 2 hertz per 2nd delta activity without any significant change throughout the tracing. No movement artifacts were noted. At this particular time patient is sedated and intubated. Non paroxysmal. Nonfocal. Nonlateralizing. IMPRESSION Abnormal record due to the absence of the normal background rhythm and due to the presence of bihemispheric slow activity. These findings are suggestive of organic or metabolic encephalopathy or postictal state. Clinical correlation recommended. This tracing is not compatible with electrocerebral silence.
--- NOTE | 2025-02-04 09:37 | WPDINTPN ---
Progress Note: A&P Assessment and Plan (1) Encephalopathy: Qualifiers: Encephalopathy type: metabolic Qualified Code(s): G93.41 - Metabolic encephalopathy Code(s): G93.40 - Encephalopathy, unspecified Status: Acute Assessment and Plan: Multifactorial, initially thought to be secondary to hyperammonemia, liver dysfunction,, shock -patient did receive lactulose enema on 01/31/2025, good bowel movements x2 Ammonia levels have normalized Continue to monitor -anisocoria, CT scan of the brain 01/28/2025 with no significant abnormality seen -continues to be encephalopathic -02/02/2025, repeat CT scan of the brain with no acute intracranial process, chronic small vessel ischemic disease -appreciate Neurology evaluation, -02/04: EEG was done this morning, will await report (2) Airway compromise: Code(s): J98.8 - Other specified respiratory disorders Status: Acute Assessment and Plan: Patient encephalopathic with elevated ammonia level, not protecting her airway, also intubated for aspiration prevention and for EGD -01/28: Intubated patient for airway protection due to encephalopathy -currently on CMV mode of ventilation, peep of 5 and 35% FiO2 -chest x-ray and ABGs reviewed, maintain O2 sats > 92% -sedated with Precedex infusion, will have bedside RN wean Precedex and try to wake up patient. When she is more awake will place her on SBT and evaluate for extubation 02/01: Patient continues to have thick ETT secretions, added Pulmozyme and Mucomyst nebulizer 02/02: Patient spiked fevers, continues to have thick ETT secretions, borderline blood pressure, started patient on cefepime and vancomycin (02/02) 02/02: Blood cultures: No growth x2 02/02: Sputum culture: Moderate amount Gram-positive cocci 02/04: Lasix 40 mg IV x1 (3) Pneumonia: Code(s): J18.9 - Pneumonia, unspecified organism Status: Acute Assessment and Plan: 02/02: Chest x-ray with worsening infiltrates, thick cream to yellow colored secretion -now afebrile, hemodynamically stable -sputum cultures as above -continue antibiotics as above (4) Hemorrhagic shock: Code(s): R57.8 - Other shock Status: Acute Assessment and Plan: RESOLVED Pt presented with rectal bleed, CT showed esophageal and rectal varices. -Transfused 2 units unmatched PRBC in the ER -hemoglobin this morning is 9.3, platelets 186 -01/28: INR 1.6, will give vitamin K -01/28: Transfused 1 unit of FFP and 1 unit of packed RBC -01/30: 1 unit of FFP and 1 unit of packed RBCs were transfused -patient adequately fluid-resuscitated -OFF pressors at this, maintain MAP > 65 mmHg or SBP > 100 mmHg for adequate end organ perfusion -01/29: Hb 7.3, INR 1.8 this morning. Transfused 1 unit of FFP and 1 unit of packed RBC, will also repeat vitamin K IVPB -01/30: Hemoglobin remained stable, decreased NG output. Discussed with GI, will continue octreotide. Discontinued Protonix infusion and IV Protonix -01/31: Hemoglobin is 9.7 this morning and stable, NG was removed 01/30 with EGD. Will continue octreotide per GI -02/01: Hemoglobin 10.1 this morning in stable, patient remains on octreotide infusion -04/04: Hemoglobin 10.4 and stable, patient remains on octreotide infusion per GI -02/03: Hemoglobin remained stable at 9.0 -02/04: Hemoglobin 9.5 and stable 01/28: CTA scan of the abdomen and pelvis: Findings within the liver for which malignancy is suspected. Additional findings within the rectum for which acute hemorrhage is suspected (likely secondary to anorectal varices). No findings to suggest upper GI bleeding. 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 Incidental notation is made of cholelithiasis. (5) Esophageal varices: Qualifiers: Esophageal varices bleeding: with bleeding Esophageal varices type: unspecified type Qualified Code(s): I85.01 - Esophageal varices with bleeding Code(s): I85.00 - Esophageal varices without bleeding Status: Acute Assessment and Plan: Esophageal varices as seen on CTA abdomen and pelvis. -appreciate GI evaluation -01/28: EGD: Showed actively bleeding gastric varix at the gastric cardia, a band ligation device was used to place 1 band, moderate gastritis was seen in the stomach. The gastric has a moderate portal hypertensive change. Large amount of blood was seen in the distal esophagus and the stomach the bowel and the 2nd portion of duodenum was normal with no ulcers or masses 08/08: Repeat EGD: Showed medium grade 3 varices (large varices almost occluding the esophageal lumen were present in the distal esophagus. There was no evidence of bleeding bleeding corresponding to the previous band. To more bands were placed. There was a large fundal pool of blood in the stomach. The bulb and the 2nd portion of duodenum was normal Appreciate GI following the patient, discussed with GI, -OFF octreotide infusion - drainage in the FMS has also slowed down, patient is not have an NG tube any more (6) Rectal varices: Code(s): K64.9 - Unspecified hemorrhoids Status: Acute Assessment and Plan: Likely related to alcoholic cirrhosis, (7) Alcoholic cirrhosis of liver with ascites: Code(s): K70.31 - Alcoholic cirrhosis of liver with ascites Status: Acute Assessment and Plan: History of alcoholic cirrhosis -LFTs and bilirubin elevated but stable -could be related to shock liver, cirrhosis, bleeding -status post ceftriaxone (01/28) for SBP prophylaxis -continue to monitor LFTs and bilirubin -INR elevated, status post vitamin K and FFP, INR is stable at 1.5 -continue to monitor -02/04: INR 1.7, vitamin K 10 mg IV piggyback x1 (8) Acute kidney injury: Code(s): N17.9 - Acute kidney failure, unspecified Status: Acute Assessment and Plan: Acute kidney injury, likely related to hemorrhagic shock -low urine output, creatinine and BUN normal -off pressors, blood pressures remained stable, will allow higher MAP, for adequate end organ perfusion -continue to monitor urine output, renal function electrolytes -creatinine is normalized (9) Abnormal CT of liver: Code(s): R93.2 - Abnormal findings on diagnostic imaging of liver and biliary tract Status: Acute Assessment and Plan: CT abdomen and pelvis as above: Suspicious for malignancy -AFP significantly elevated to 83,546 (0.0-9.2) -GI is following the patient: Recommended may need MRI liver protocol when more stable and extubated Plan DVT prophylaxis: SCDs, no chemoprophylaxis due to hemorrhagic shock and GI bleed Stress ulcer prophylaxis: Protonix IV daily Nutrition: TPN started on 02/02 Code Status: DNR Critical Care Time Spent: 33 minutes 02/01: Discussed at length with patient's sister Jinny, she wants to be the decision maker, appreciate Allison from care coordination discussed with Jinny and patient's daughter Modesta. Modesta agreed the Jinny to be the surrogate decision maker. They also agree to make her a do not resuscitate, orders for DNR when placed in the chart. I answered all the questions 01/31: Discussed with Modesta Stearns, patient's daughter at [phone], updated the daughter with patient's condition from the time she came to the hospital until today. She is aware that patient is not waking up despite being off sedation likely related to hepatic encephalopathy. I updated her with the repeat EGD that was done yesterday and that the patient has received multiple blood products. I also discussed with her code status to which the daughter stated she wanted her to be a full code. She did not have any other questions. 01/30: Discussed with Jinny Cabezas, patient's sister and updated her with patient's condition and plan of care. She stated that the patient has a daughter with anemia of Modesta Stearns, she was supposed to contact the daughter and I asked to give me a call. Will try to locate daughter's number and will give her a call and explain to her patient's condition/situation and recommendations of the card painter. Due to a high probability of clinically significant, life threatening deterioration, the patient required my highest level of preparedness to intervene emergently and I personally spent this critical care time directly and personally managing the patient. This critical care time included obtaining a history; examining the patient; pulse oximetry; ordering and review of studies; arranging urgent treatment with development of a management plan; evaluation of patient's response to treatment; frequent reassessment; and discussions with other providers. It was exclusive of separately billable procedures and treating other patients and teaching time. Please see Assessment and Plan section and the rest of the note for further information on patient assessment and treatment This dictation may have been done utilizing a voice recognition system. Attempts have been made to correct errors. However, there may be uncorrected grammatical, spelling, and recognitions errors present. Subjective Date/time seen: 02/04/25 09:37 Interval history: Reason for consult: GI bleed, Esophageal and rectal varices, shock, altered mental status, anisocoria, unable to protect her airway, intubated and on mechanical ventilator, hyperkalemia, acute renal failure, elevated LFTs 01/28: EGD: Showed actively bleeding gastric varix at the gastric cardia, a band ligation device was used to place 1 band, moderate gastritis was seen in the stomach. The gastric has a moderate portal hypertensive change. Large amount of blood was seen in the distal esophagus and the stomach the bowel and the 2nd portion of duodenum was normal with no ulcers or masses 01/30: Repeat EGD: Showed medium grade 3 varices (large varices almost occluding the esophageal lumen were present in the distal esophagus. There was no evidence of bleeding bleeding corresponding to the previous band. To more bands were placed. There was a large fundal pool of blood in the stomach. The bulb and the 2nd portion of duodenum was normal 02/04/2025: Patient seen examined the ICU, remains intubated on CMV mode of ventilation, peep of 8, 35% FiO2. Sedated with Precedex infusion. Patient opens her eyes but does track or follow simple commands. Withdraws to pain in all extremities. Afebrile overnight, decreased urine output, hemodynamically stable not requiring any pressors. Hemoglobin remained stable at 9.5, ammonia levels are within normal limits Review of Systems Review of Systems: ROS unobtainable: Yes unobtainable due to endotracheal tube, unobtainable due to medical condition and unobtainable due to mental status Exam Narrative: General: Patient is intubated and sedated in no acute distress HEENT:? Pupils unequal, R>L, but reactive, sclera is icteric Neck:? supple Respiratory:? Coarse breath sounds bilaterally, decreased at bases, no wheezing noted this more, adequate air Cardiac:? S1 S2 normal, regular rate and rhythm Abdomen:? soft, nontender, non distended, morbidly obese, hypoactive bowel sounds Extremities:?b/l edema of lower extremities, palpable pedal pulses Neuro:? Patient is intubated on Precedex infusion, barely opens her eyes to name, does not track or follow simple commands.. withdraws to pain stimulus. Patient is moving all her extremities spontaneously and nonpurposeful Skin:? Feet are warm today Psych:? unable to assess Objective Data Vital Signs Vital Signs: Vital Signs - 24 hr 02/03/25 09:41 02/03/25 10:00 02/03/25 10:00 Temperature 100.2 F H Pulse Rate 59 L 57 L 57 L Respiratory Rate 32 H 19 Blood Pressure 110/66 110/66 Pulse Oximetry 93 Oxygen Delivery Fraction of Inspired Oxygen 02/03/25 10:00 02/03/25 10:11 02/03/25 10:42 Temperature Pulse Rate 57 L 57 L 57 L Respiratory Rate 19 16 Blood Pressure Pulse Oximetry Oxygen Delivery Fraction of Inspired Oxygen 02/03/25 10:52 02/03/25 11:08 02/03/25 12:00 Temperature Pulse Rate 56 L 57 L 55 L Respiratory Rate 18 18 Blood Pressure Pulse Oximetry 93 Oxygen Delivery Mechanical Ventilation Fraction of Inspired Oxygen 45 02/03/25 12:00 02/03/25 12:00 02/03/25 12:00 Temperature 100.1 F H Pulse Rate 55 L 88 55 L Respiratory Rate 21 H 21 H Blood Pressure 103/65 103/65 Pulse Oximetry 94 94 Oxygen Delivery Mechanical Ventilation Fraction of Inspired Oxygen 45 02/03/25 12:00 02/03/25 12:00 02/03/25 13:59 Temperature Pulse Rate 53 L 53 L Respiratory Rate 18 Blood Pressure Pulse Oximetry Oxygen Delivery Fraction of Inspired Oxygen 45 02/03/25 14:00 02/03/25 14:00 02/03/25 14:00 Temperature 100.2 F H Pulse Rate 52 L 52 L 52 L Respiratory Rate 22 H Blood Pressure 97/63 L 97/63 L Pulse Oximetry 95 Oxygen Delivery Fraction of Inspired Oxygen 02/03/25 14:03 02/03/25 14:05 02/03/25 14:12 Temperature Pulse Rate 53 L 53 L 56 L Respiratory Rate 25 H 21 H Blood Pressure Pulse Oximetry 93 Oxygen Delivery Mechanical Ventilation Fraction of Inspired Oxygen 45 02/03/25 16:00 02/03/25 16:00 02/03/25 16:00 Temperature Pulse Rate 57 L 59 L Respiratory Rate 21 H Blood Pressure 107/64 Pulse Oximetry 92 Oxygen Delivery Mechanical Ventilation Fraction of Inspired Oxygen 45 45 02/03/25 16:00 02/03/25 16:00 02/03/25 16:00 Temperature 99.7 F H Pulse Rate 59 L 59 L 58 L Respiratory Rate 21 H 21 H Blood Pressure 107/64 Pulse Oximetry 92 Oxygen Delivery Fraction of Inspired Oxygen 02/03/25 16:28 02/03/25 16:28 02/03/25 16:56 Temperature Pulse Rate 58 L 58 L 55 L Respiratory Rate 26 H 26 H Blood Pressure Pulse Oximetry 94 Oxygen Delivery Mechanical Ventilation Fraction of Inspired Oxygen 45 02/03/25 18:00 02/03/25 18:00 02/03/25 18:00 Temperature 99.9 F H Pulse Rate 55 L 55 L 55 L Respiratory Rate 22 H 22 H Blood Pressure 109/62 Pulse Oximetry 92 Oxygen Delivery Fraction of Inspired Oxygen 02/03/25 18:00 02/03/25 19:15 02/03/25 19:28 Temperature Pulse Rate 55 L 65 55 L Respiratory Rate 24 H 25 H Blood Pressure 109/62 Pulse Oximetry Oxygen Delivery Fraction of Inspired Oxygen 02/03/25 19:31 02/03/25 19:34 02/03/25 19:36 Temperature Pulse Rate 55 L 59 L Respiratory Rate 22 H Blood Pressure Pulse Oximetry 93 93 Oxygen Delivery Mechanical Ventilation Mechanical Ventilation Fraction of Inspired Oxygen 45 45 45 02/03/25 19:52 02/03/25 19:57 02/03/25 19:58 Temperature 99.8 F H Pulse Rate 63 65 62 Respiratory Rate 22 H 24 H 24 H Blood Pressure 107/64 Pulse Oximetry 90 Oxygen Delivery Fraction of Inspired Oxygen 02/03/25 20:00 02/03/25 20:00 02/03/25 20:09 Temperature Pulse Rate 62 63 65 Respiratory Rate 24 H 30 H Blood Pressure Pulse Oximetry Oxygen Delivery Fraction of Inspired Oxygen 02/03/25 20:09 02/03/25 22:00 02/03/25 22:00 Temperature Pulse Rate 65 67 59 L Respiratory Rate 28 H 24 H Blood Pressure Pulse Oximetry Oxygen Delivery Fraction of Inspired Oxygen 02/03/25 22:00 02/03/25 22:00 02/03/25 22:18 Temperature 99.3 F 99.3 F Pulse Rate 59 L 59 L 57 L Respiratory Rate 22 H 22 H 22 H Blood Pressure 108/61 108/61 Pulse Oximetry 92 90 Oxygen Delivery Fraction of Inspired Oxygen 02/03/25 22:18 02/03/25 22:33 02/03/25 23:30 Temperature Pulse Rate 56 L 55 L 68 Respiratory Rate 21 H 26 H Blood Pressure Pulse Oximetry 93 Oxygen Delivery Mechanical Ventilation Fraction of Inspired Oxygen 45 02/03/25 23:37 02/03/25 23:41 02/04/25 00:00 Temperature Pulse Rate 55 L 54 L Respiratory Rate 21 H Blood Pressure Pulse Oximetry 95 Oxygen Delivery Mechanical Ventilation Fraction of Inspired Oxygen 45 45 02/04/25 00:00 02/04/25 00:00 02/04/25 00:11 Temperature 99.3 F Pulse Rate 54 L 60 53 L Respiratory Rate 18 22 H 23 H Blood Pressure 104/66 Pulse Oximetry 92 Oxygen Delivery Fraction of Inspired Oxygen 02/04/25 00:11 02/04/25 01:16 02/04/25 01:21 Temperature Pulse Rate 54 L 52 L 52 L Respiratory Rate 23 H 26 H Blood Pressure Pulse Oximetry 93 Oxygen Delivery Mechanical Ventilation Fraction of Inspired Oxygen 45 02/04/25 01:38 02/04/25 01:39 02/04/25 01:39 Temperature Pulse Rate 57 L 58 L 58 L Respiratory Rate 22 H 21 H 21 H Blood Pressure Pulse Oximetry Oxygen Delivery Fraction of Inspired Oxygen 02/04/25 02:00 02/04/25 02:00 02/04/25 02:00 Temperature 99.1 F Pulse Rate 59 L 59 L 59 L Respiratory Rate 18 22 H Blood Pressure 103/66 Pulse Oximetry 96 Oxygen Delivery Fraction of Inspired Oxygen 02/04/25 03:12 02/04/25 03:12 02/04/25 03:45 Temperature Pulse Rate 57 L 57 L 52 L Respiratory Rate 22 H 22 H 22 H Blood Pressure Pulse Oximetry 98 Oxygen Delivery Mechanical Ventilation Fraction of Inspired Oxygen 45 02/04/25 04:00 02/04/25 04:00 02/04/25 04:00 Temperature 98.9 F Pulse Rate 51 L 51 L Respiratory Rate 22 H 22 H Blood Pressure 102/66 Pulse Oximetry 98 Oxygen Delivery Fraction of Inspired Oxygen 45 02/04/25 04:00 02/04/25 04:29 02/04/25 04:53 Temperature Pulse Rate 51 L 48 L 48 L Respiratory Rate 24 H 26 H Blood Pressure Pulse Oximetry Oxygen Delivery Fraction of Inspired Oxygen 02/04/25 04:55 02/04/25 05:12 02/04/25 05:56 Temperature 99.4 F Pulse Rate 48 L 47 L 47 L Respiratory Rate 30 H 22 H Blood Pressure 103/67 Pulse Oximetry 98 98 Oxygen Delivery Mechanical Ventilation Fraction of Inspired Oxygen 45 02/04/25 06:00 02/04/25 06:00 02/04/25 06:30 Temperature Pulse Rate 46 L 46 L 46 L Respiratory Rate 19 28 H Blood Pressure Pulse Oximetry Oxygen Delivery Fraction of Inspired Oxygen 02/04/25 06:57 02/04/25 06:57 02/04/25 07:28 Temperature Pulse Rate 47 L 47 L Respiratory Rate 28 H 30 H Blood Pressure Pulse Oximetry Oxygen Delivery Fraction of Inspired Oxygen 45 02/04/25 07:45 02/04/25 08:00 02/04/25 08:00 Temperature 100.0 F H Pulse Rate 48 L 51 L 51 L Respiratory Rate 27 H 20 20 Blood Pressure 94/58 L Pulse Oximetry 97 97 Oxygen Delivery Mechanical Ventilation Fraction of Inspired Oxygen 45 02/04/25 09:20 02/04/25 09:33 Temperature Pulse Rate 49 L 50 L Respiratory Rate 22 H 30 H Blood Pressure Pulse Oximetry Oxygen Delivery Fraction of Inspired Oxygen Intake/Output Intake/Output: Intake & Output 02/01/25 02/02/25 02/03/25 02/04/25 23:59 23:59 23:59 23:59 Intake Total 780.8 2284.5 2627.0 1254.2 Output Total 1050 700 925 350 Balance -269.2 1584.5 1702.0 904.2 Meds/Results Medications: Active Medications Generic Name Dose Route Start Last Admin Trade Name Freq PRN Reason Stop Dose Admin Acetaminophen 650 mg 02/01/25 14:06 02/01/25 15:42 Acetaminophen 650 Mg Suppository RECTAL 650 mg Q6H PRN Administration Mild Pain (1-3) or Fever Acetylcysteine 200 mg 02/01/25 14:00 02/04/25 09:17 Acetylcysteine 20% Inhal Soln 800 Mg/4 Ml Vial INHALATION 200 mg Q6HRT TATYANA Administration Albuterol/Ipratropium 3 ml 01/30/25 14:00 02/04/25 09:17 Ipratropium 0.5 Mg/Albuterol Sulfate 2.5 Mg Ampul.Neb 3 Ml INHALATION 3 ml Q6HRT TATYANA Administration Alteplase, Recombinant 2 mg 02/02/25 10:10 Alteplase 2 Mg Vial (Cathflo) IV PUSH ONCE PRN Line Occlusion Dextrose 12.5 gm 02/02/25 10:13 Dextrose 50% 25 Gm/50 Ml Syringe IV PUSH PRN PRN Hypoglycemia Protocol Glucagon 1 mg 02/02/25 10:13 Glucagon For Inj 1 Mg Vial IM PRN PRN Hypoglycemia Protocol Glucose 15 gm 02/02/25 10:13 Glucose Oral Gel 15 Gm Of Glucse In 37.5 Gm Tube PO PRN PRN Hypoglycemia Protocol Dexmedetomidine HCl 400 mcg in 100 mls @ 20.625 mls/hr 01/30/25 10:30 02/04/25 07:45 Precedex 400 Mcg/100 Ml IV CONT 0.5 mcg/kg/hr .Q4H51M TATYANA 20.63 mls/hr Titration Protocol 0.5 MCG/KG/HR Cefepime HCl 2 gm/ Sodium 50 mls @ 100 mls/hr 02/02/25 08:00 02/04/25 05:29 Chloride IVPB Infused Q8HR TATYANA Infusion Multivitamins 1.25 ml/ 1,002.5 mls @ 40 mls/hr 02/02/25 14:00 02/03/25 13:43 Multivitamins 1.25 ml/ Amino IV CONT 40 mls/hr Acids/Dextrose .Q24H TATYANA Administration Protocol Dextrose 1,000 mls @ 50 mls/hr 02/02/25 10:12 Dextrose 10% IV CONT .Q20H PRN if PN is interrupted Fat Emulsion Intravenous 250 mls @ 20.833 mls/hr 02/02/25 14:00 02/04/25 01:45 Lipids 20% IVPB Infused Q24H TATYANA Infusion Dextrose 1,000 mls @ 100 mls/hr 02/02/25 10:13 Dextrose 5% 1,000 Ml IVPB PRN PRN Hypoglycemia Protocol Vancomycin HCl 1,500 mg in 500 mls @ 250 mls/hr 02/04/25 03:00 02/04/25 03:40 Vancomycin 1,500 Mg/Ns 500 Ml IVPB Infused Q18H TATYANA Infusion Potassium Phosphate 20 mmol/ 256.6667 mls @ 64.167 mls/hr 02/04/25 08:00 02/04/25 08:12 Sodium Chloride IVPB 02/04/25 11:59 64.17 mls/hr ONCE ONE Administration Insulin Aspart 2 - 5 units 02/02/25 12:00 02/04/25 06:07 Insulin Aspart (*Bkc) 100 Units/Ml SUB-Q Not Given Q6HR TATYANA Protocol Multi-Ingred Cream/Lotion/Oil/Oint 1 applic 01/28/25 09:15 02/04/25 08:31 Mineral Oil/White Petrolatum Ointment EACH EYE 1 applic Q12HR TATYANA Administration Ondansetron HCl 4 mg 01/28/25 01:51 Ondansetron Inj 4 Mg/2 Ml Vial IV PUSH Q4H PRN Nausea Sodium Chloride 10 ml 01/28/25 14:00 02/04/25 04:59 Central Line Flush IV PUSH 10 ml Q8HR TATYANA Administration Sodium Chloride 20 ml 01/28/25 06:37 Central Line Flush IV PUSH PRN PRN after blood draws Radiology Results: ITS Impressions Abdomen/Pelvis CTA 01/28/25 00:08 IMPRESSION: Findings within the liver for which malignancy is suspected. Additional findings within the rectum for which acute hemorrhage is suspected (likely secondary to anorectal varices). No findings to suggest upper GI bleeding. 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 Incidental notation is made of cholelithiasis. Abdomen X-Ray 01/28/25 13:57 IMPRESSION: 1. Nasogastric tube in stomach. Head CT 02/02/25 13:34 IMPRESSION: 1. No acute intracranial process. 2. Stable age-related changes including mild diffuse volume loss and mild scattered white matter hypoattenuation consistent with chronic small vessel ischemic disease. Chest X-Ray 02/04/25 06:28 Impression: 1: Interval progression of diffuse bilateral airspace disease which may represent edema and/or pneumonia. Labs Labs: Laboratory Results - last 24 hr 02/03/25 02/03/25 02/03/25 12:19 17:20 19:47 WBC RBC Hgb Hct MCV MCH MCHC RDW Plt Count MPV Immature Gran % (Auto) Neut % (Auto) Lymph % (Auto) [place] % (Auto) Eos % (Auto) Baso % (Auto) Lymph # (Auto) [place] # (Auto) Eos # (Auto) Baso # (Auto) Abs Immat Gran (auto) Absolute Neuts (auto) Absolute Nucleated RBC Band Neutrophils % Nucleated RBC % Platelet Estimate Polychromasia Anisocytosis Ovalocytes Schistocytes PT INR APTT Puncture Site ABG pH ABG pCO2 ABG pO2 ABG PO2/FiO2 Ratio ABG HCO3 ABG O2 Saturation ABG O2 Content ABG Base Excess A-a Gradient Oxyhemoglobin Carboxyhemoglobin Methemoglobin Reduced Hemoglobin Total Hemoglobin O2 Delivery Device O2 Liters/Min Minute Volume Vent Rate Vent Mode FiO2 Tidal Volume PEEP Peak Inspir Pressure Pressure Support Sodium Potassium Chloride Carbon Dioxide Anion Gap BUN Creatinine Estim Creat Clear Calc Estimated GFR Glucose POC Capillary Glucose 163 H 169 H Calcium Phosphorus Magnesium Total Bilirubin AST ALT Alkaline Phosphatase Ammonia Total Protein Albumin Vancomycin Trough 21.8 H 02/03/25 02/04/25 02/04/25 23:25 04:24 04:59 WBC 10.8 H RBC 2.80 L Hgb 9.5 L Hct 30.0 L MCV 107.1 H MCH 33.9 MCHC 31.7 L RDW 22.4 H Plt Count 101 L MPV 10.4 Immature Gran % (Auto) 1.1 H Neut % (Auto) 82.5 H Lymph % (Auto) 9.4 L [place] % (Auto) 5.8 Eos % (Auto) 0.9 Baso % (Auto) 0.3 Lymph # (Auto) 1.01 [place] # (Auto) 0.6 Eos # (Auto) 0.1 Baso # (Auto) 0.0 Abs Immat Gran (auto) 0.12 H Absolute Neuts (auto) 8.9 H Absolute Nucleated RBC 0.030 H Band Neutrophils % 0 Nucleated RBC % 0.3 H Platelet Estimate Decreased Polychromasia 1+ Anisocytosis 1+ Ovalocytes 1+ Schistocytes None seen PT 20.0 H INR 1.7 APTT 28.8 Puncture Site Right radial ABG pH 7.449 ABG pCO2 31.1 L ABG pO2 77.2 L ABG PO2/FiO2 Ratio 2.21 ABG HCO3 21.1 L ABG O2 Saturation 96.1 ABG O2 Content 14.5 L ABG Base Excess -2.2 A-a Gradient 136.2 Oxyhemoglobin 94.0 Carboxyhemoglobin 0.4 Methemoglobin 0.1 Reduced Hemoglobin 5.5 H Total Hemoglobin 10.9 L O2 Delivery Device Ventilator O2 Liters/Min Not Reportable Minute Volume Not Reportable Vent Rate 16 Vent Mode Assist control FiO2 35 Tidal Volume 400 PEEP 8 Peak Inspir Pressure Not Reportable Pressure Support Not Reportable Sodium 145 Potassium 3.6 Chloride 116 H Carbon Dioxide 21 L Anion Gap 8 BUN 39 H Creatinine 0.93 Estim Creat Clear Calc 90 Estimated GFR > 60 Glucose 182 H POC Capillary Glucose 187 H Calcium 9.4 Phosphorus 2.3 L Magnesium 1.9 Total Bilirubin 3.5 H AST 152 H ALT 46 H Alkaline Phosphatase 65 Ammonia 10 Total Protein 6.2 L Albumin 3.0 L Vancomycin Trough Quality VTE Prophylaxis VTE prophylaxis: mechanical ordered
--- NOTE | 2025-02-04 11:09 | PCNFU ---
Nutrition Follow-Up Complete: Suboptimal Energy Intake as related to mechanical intubation as evidenced by NPO. Goal: Meet estimated nutritional needs Patient will continue current goal. Pt current nutrition is TPN at 50 ml/hr. Last recorded weight is 161.5 kg, up from 155.1 kg on admit. Bowel Motility: No BM noted at this time. Labs Reviewed:Glu 182, Alb 3.0, Hgb 9.5, Hgb 30.0 Meds Noted: Vancomycin, Precedex, Protonix, Clinimix 5/15 at 40 ml/hr, 250 ml 20% Lipid Emulsion. Skin: WNL Additional Notes: Patient remains on mechanical vent. TPN currently at 40 ml/hr. Director Of Music plans to order rate increased to 50 ml/hr today. TPN providing 1352 kcal and 60 gm protein, which is meeting 93% kcal needs at 22 kcal/kg IBW and 51% protein needs at 1.8 gm/kg IBW. Agree with diet orders at this time. Will monitor weight, labs, skin, diet orders, meds every Sunday and Sunday.
[2025-02-04] MEDS: PANTOPRAZOLE SODIUM IV 40 MG VIAL IV PUSH (11:37)
[2025-02-04] MEDS: dexmedeTOMIDine 400 MCG/100 ML 400 MCG/100 ML BAG 24.75 MCG IV CONT (12:02)
--- NOTE | 2025-02-04 14:29 | P.PNIM_ITS ---
Progress Note: A&P Assessment and Plan (1) Encephalopathy: Qualifiers: Encephalopathy type: metabolic Qualified Code(s): G93.41 - Metabolic encephalopathy Code(s): G93.40 - Encephalopathy, unspecified Status: Acute Assessment and Plan: Multifactorial, initially thought to be secondary to hyperammonemia, liver dysfunction,, shock -patient did receive lactulose enema on 01/31/2025, good bowel movements x2 Ammonia levels have normalized Continue to monitor -anisocoria, CT scan of the brain 01/28/2025 with no significant abnormality seen -continues to be encephalopathic -02/02/2025, repeat CT scan of the brain with no acute intracranial process, chronic small vessel ischemic disease -appreciate Neurology evaluation, -02/04: EEG: Abnormal record due to the absence of the normal background rhythm and due to the presence of bihemispheric slow activity. These findings are suggestive of organic or metabolic encephalopathy or postictal state. Clinical correlation recommended. This tracing is not compatible with electrocerebral silence. 02/04: Patient did open her eyes and tracked, followed commands with lower extremities 02/05: required increasing sedation overnight due to hypoxia and worsening chest x-ray (2) Airway compromise: Code(s): J98.8 - Other specified respiratory disorders Status: Acute Assessment and Plan: Patient encephalopathic with elevated ammonia level, not protecting her airway, also intubated for aspiration prevention and for EGD -01/28: Intubated patient for airway protection due to encephalopathy -currently on CMV mode of ventilation, -chest x-ray and ABGs reviewed, maintain O2 sats > 92%, ventilator adjusted, increase PEEP to 10 and 60% FiO2 -sedated with Precedex infusion, will have bedside RN wean Precedex and try to wake up patient. When she is more awake will place her on SBT and evaluate for extubation 02/01: Patient continues to have thick ETT secretions, added Pulmozyme and Mucomyst nebulizer 02/02: Patient spiked fevers, continues to have thick ETT secretions, borderline blood pressure, started patient on cefepime and vancomycin (02/02) 02/02: Blood cultures: No growth x2 02/02: Sputum culture: ESBL E coli 02/04: Lasix 40 mg IV x1 -02/05: Switch cefepime to meropenem (02/05) -CT scan of the chest abdomen and pelvis: IMPRESSION: 1. Tiny left-sided pleural effusion. Small right-sided pleural effusion. 2. Moderate to large ground glass and patchy opacities scattered throughout both lungs. Differential is broad and includes but is not limited to edema or pneumonia. Recommend follow-up to resolution. 3. Moderate-sized consolidations in the lower lobes, larger on the right, with air bronchograms. Recommend follow-up to resolution. 4.The liver is heterogeneous. Micronodular appearance to the surface of the liver. There is a 2.4 cm low-density lesion in the posterior segment of the righ t lobe of the liver. A liver mass MRI is recommended. Evaluation of the liver is significantly limited due to artifact. 5. Moderate amount of nonspecific fat stranding and ascites scattered throughout the abdomen and pelvis. 6. Cholelithiasis. (3) Pneumonia: Code(s): J18.9 - Pneumonia, unspecified organism Status: Acute Assessment and Plan: 02/02: Chest x-ray with worsening infiltrates, thick cream to yellow colored secretion -sputum cultures as above -continue antibiotics as above (4) Hemorrhagic shock: Code(s): R57.8 - Other shock Status: Acute Assessment and Plan: RESOLVED Pt presented with rectal bleed, CT showed esophageal and rectal varices. -Transfused 2 units unmatched PRBC in the ER -hemoglobin this morning is 9.3, platelets 186 -01/28: INR 1.6, will give vitamin K -01/28: Transfused 1 unit of FFP and 1 unit of packed RBC -01/30: 1 unit of FFP and 1 unit of packed RBCs were transfused 02/05: Hypoxia, hypotension, Levophed was restarted,, maintain MAP > 65 mm Hg at all times for adequate end organ perfusion, continue antibiotics as above -01/29: Hb 7.3, INR 1.8 this morning. Transfused 1 unit of FFP and 1 unit of packed RBC, will also repeat vitamin K IVPB -01/30: Hemoglobin remained stable, decreased NG output. Discussed with GI, will continue octreotide. Discontinued Protonix infusion and IV Protonix -01/31: Hemoglobin is 9.7 this morning and stable, NG was removed 01/30 with EGD. Will continue octreotide per GI -02/01: Hemoglobin 10.1 this morning in stable, patient remains on octreotide infusion -04/04: Hemoglobin 10.4 and stable, patient remains on octreotide infusion per GI -02/03: Hemoglobin remained stable at 9.0 -02/04: Hemoglobin 9.5 and stable 01/28: CTA scan of the abdomen and pelvis: Findings within the liver for which malignancy is suspected. Additional findings within the rectum for which acute hemorrhage is suspected (likely secondary to anorectal varices). No findings to suggest upper GI bleeding. 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 Incidental notation is made of cholelithiasis. (5) Esophageal varices: Qualifiers: Esophageal varices bleeding: with bleeding Esophageal varices type: unspecified type Qualified Code(s): I85.01 - Esophageal varices with bleeding Code(s): I85.00 - Esophageal varices without bleeding Status: Acute Assessment and Plan: Esophageal varices as seen on CTA abdomen and pelvis. -appreciate GI evaluation -01/28: EGD: Showed actively bleeding gastric varix at the gastric cardia, a band ligation device was used to place 1 band, moderate gastritis was seen in the stomach. The gastric has a moderate portal hypertensive change. Large amount of blood was seen in the distal esophagus and the stomach the bowel and the 2nd portion of duodenum was normal with no ulcers or masses 01/30: Repeat EGD: Showed medium grade 3 varices (large varices almost occluding the esophageal lumen were present in the distal esophagus. There was no evidence of bleeding bleeding corresponding to the previous band. To more bands were placed. There was a large fundal pool of blood in the stomach. The bulb and the 2nd portion of duodenum was normal Appreciate GI following the patient, discussed with GI, -OFF octreotide infusion (6) Rectal varices: Code(s): K64.9 - Unspecified hemorrhoids Status: Acute Assessment and Plan: Likely related to alcoholic cirrhosis, (7) Alcoholic cirrhosis of liver with ascites: Code(s): K70.31 - Alcoholic cirrhosis of liver with ascites Status: Acute Assessment and Plan: History of alcoholic cirrhosis -LFTs and bilirubin elevated but stable -could be related to shock liver, cirrhosis, bleeding -status post ceftriaxone (01/28) for SBP prophylaxis -continue to monitor LFTs and bilirubin -INR elevated, status post vitamin K and FFP, INR is stable -continue to monitor -02/04: INR 1.7, vitamin K 10 mg IV piggyback x1 (8) Acute kidney injury: Code(s): N17.9 - Acute kidney failure, unspecified Status: Acute Assessment and Plan: Acute kidney injury, likely related to hemorrhagic shock -low urine output, creatinine and BUN normal -maintain adequate MAP and SBP -continue to monitor urine output, renal function electrolytes -creatinine remains normal (9) Abnormal CT of liver: Code(s): R93.2 - Abnormal findings on diagnostic imaging of liver and biliary tract Status: Acute Assessment and Plan: CT abdomen and pelvis as above: Suspicious for malignancy -AFP significantly elevated to 83,546 (0.0-9.2) -GI is following the patient: Recommended may need MRI liver protocol when more stable and extubated (10) Septic shock: Code(s): A41.9 - Sepsis, unspecified organism; R65.21 - Severe sepsis with septic shock Status: Acute Assessment and Plan: Patient with ESBL E coli pneumonia on sputum culture -low blood pressures likely related to sepsis/shock -restarted on Levophed,, maintain MAP > 65 mmHg or SBP > 100 mmHg at all times for adequate end organ perfusion -antibiotics as above Plan DVT prophylaxis: SCDs, no chemoprophylaxis due to hemorrhagic shock and GI bleed Stress ulcer prophylaxis: Protonix IV daily Nutrition: TPN started on 02/02, will discuss with GI regarding possibility of NG tube placement and starting and trach feeds Code Status: DNR Critical Care Time Spent: 34 minutes 02/01: Discussed at length with patient's sister Jinny, she wants to be the decision maker, appreciate Allison from care coordination discussed with Jinny and patient's daughter Modesta. Modesta agreed the Jinny to be the surrogate decision maker. They also agree to make her a do not resuscitate, orders for DNR when placed in the chart. I answered all the questions 01/31: Discussed with Modesta Stearns, patient's daughter at [phone], updated the daughter with patient's condition from the time she came to the hospital until today. She is aware that patient is not waking up despite being off sedation likely related to hepatic encephalopathy. I updated her with the repeat EGD that was done yesterday and that the patient has received multiple blood products. I also discussed with her code status to which the daughter stated she wanted her to be a full code. She did not have any other questions. 01/30: Discussed with Jinny Cabezas, patient's sister and updated her with patient's condition and plan of care. She stated that the patient has a daughter with anemia of Modesta Stearns, she was supposed to contact the daughter and I asked to give me a call. Will try to locate daughter's number and will give her a call and explain to her patient's condition/situation and recommendations of the glove turner and former automatic. Subjective Date/time seen: 02/04/25 14:29 Interval history: Chart reviewed. Patient remains intubated. On Precedex drip. Off Levophed now. Review of Systems Review of Systems: ROS unobtainable: Yes unobtainable due to endotracheal tube Exam Narrative: Patient is comfortable, NAD HEENT: ET tube in place LUNGS:CTA HEART: RR S1S2 ABD: BS+, Soft and nontender Lower extremities: no edema SKIN: nonjaundiced Neuro: On vent and sedated Objective Data Vital Signs Vital Signs: Vital Signs - 24 hr 02/03/25 16:00 02/03/25 16:00 02/03/25 16:00 Temperature Pulse Rate 57 L 59 L Respiratory Rate 21 H Blood Pressure 107/64 Pulse Oximetry 92 Oxygen Delivery Mechanical Ventilation Fraction of Inspired Oxygen 45 45 02/03/25 16:00 02/03/25 16:00 02/03/25 16:00 Temperature 37.6 C H Pulse Rate 59 L 59 L 58 L Respiratory Rate 21 H 21 H Blood Pressure 107/64 Pulse Oximetry 92 Oxygen Delivery Fraction of Inspired Oxygen 02/03/25 16:28 02/03/25 16:28 02/03/25 16:56 Temperature Pulse Rate 58 L 58 L 55 L Respiratory Rate 26 H 26 H Blood Pressure Pulse Oximetry 94 Oxygen Delivery Mechanical Ventilation Fraction of Inspired Oxygen 45 02/03/25 18:00 02/03/25 18:00 02/03/25 18:00 Temperature 37.7 C H Pulse Rate 55 L 55 L 55 L Respiratory Rate 22 H 22 H Blood Pressure 109/62 Pulse Oximetry 92 Oxygen Delivery Fraction of Inspired Oxygen 02/03/25 18:00 02/03/25 19:15 02/03/25 19:28 Temperature Pulse Rate 55 L 65 55 L Respiratory Rate 24 H 25 H Blood Pressure 109/62 Pulse Oximetry Oxygen Delivery Fraction of Inspired Oxygen 02/03/25 19:31 02/03/25 19:34 02/03/25 19:36 Temperature Pulse Rate 55 L 59 L Respiratory Rate 22 H Blood Pressure Pulse Oximetry 93 93 Oxygen Delivery Mechanical Ventilation Mechanical Ventilation Fraction of Inspired Oxygen 45 45 45 02/03/25 19:52 02/03/25 19:57 02/03/25 19:58 Temperature 37.7 C H Pulse Rate 63 65 62 Respiratory Rate 22 H 24 H 24 H Blood Pressure 107/64 Pulse Oximetry 90 Oxygen Delivery Fraction of Inspired Oxygen 02/03/25 20:00 02/03/25 20:00 02/03/25 20:09 Temperature Pulse Rate 62 63 65 Respiratory Rate 24 H 30 H Blood Pressure Pulse Oximetry Oxygen Delivery Fraction of Inspired Oxygen 02/03/25 20:09 02/03/25 22:00 02/03/25 22:00 Temperature Pulse Rate 65 67 59 L Respiratory Rate 28 H 24 H Blood Pressure Pulse Oximetry Oxygen Delivery Fraction of Inspired Oxygen 02/03/25 22:00 02/03/25 22:00 02/03/25 22:18 Temperature 37.4 C 37.4 C Pulse Rate 59 L 59 L 57 L Respiratory Rate 22 H 22 H 22 H Blood Pressure 108/61 108/61 Pulse Oximetry 92 90 Oxygen Delivery Fraction of Inspired Oxygen 02/03/25 22:18 02/03/25 22:33 02/03/25 23:30 Temperature Pulse Rate 56 L 55 L 68 Respiratory Rate 21 H 26 H Blood Pressure Pulse Oximetry 93 Oxygen Delivery Mechanical Ventilation Fraction of Inspired Oxygen 45 02/03/25 23:37 02/03/25 23:41 02/04/25 00:00 Temperature Pulse Rate 55 L 54 L Respiratory Rate 21 H Blood Pressure Pulse Oximetry 95 Oxygen Delivery Mechanical Ventilation Fraction of Inspired Oxygen 45 45 02/04/25 00:00 02/04/25 00:00 02/04/25 00:11 Temperature 37.4 C Pulse Rate 54 L 60 53 L Respiratory Rate 18 22 H 23 H Blood Pressure 104/66 Pulse Oximetry 92 Oxygen Delivery Fraction of Inspired Oxygen 02/04/25 00:11 02/04/25 01:16 02/04/25 01:21 Temperature Pulse Rate 54 L 52 L 52 L Respiratory Rate 23 H 26 H Blood Pressure Pulse Oximetry 93 Oxygen Delivery Mechanical Ventilation Fraction of Inspired Oxygen 45 02/04/25 01:38 02/04/25 01:39 02/04/25 01:39 Temperature Pulse Rate 57 L 58 L 58 L Respiratory Rate 22 H 21 H 21 H Blood Pressure Pulse Oximetry Oxygen Delivery Fraction of Inspired Oxygen 02/04/25 02:00 02/04/25 02:00 02/04/25 02:00 Temperature 37.3 C Pulse Rate 59 L 59 L 59 L Respiratory Rate 18 22 H Blood Pressure 103/66 Pulse Oximetry 96 Oxygen Delivery Fraction of Inspired Oxygen 02/04/25 03:12 02/04/25 03:12 02/04/25 03:45 Temperature Pulse Rate 57 L 57 L 52 L Respiratory Rate 22 H 22 H 22 H Blood Pressure Pulse Oximetry 98 Oxygen Delivery Mechanical Ventilation Fraction of Inspired Oxygen 45 02/04/25 04:00 02/04/25 04:00 02/04/25 04:00 Temperature 37.2 C Pulse Rate 51 L 51 L Respiratory Rate 22 H 22 H Blood Pressure 102/66 Pulse Oximetry 98 Oxygen Delivery Fraction of Inspired Oxygen 45 02/04/25 04:00 02/04/25 04:29 02/04/25 04:53 Temperature Pulse Rate 51 L 48 L 48 L Respiratory Rate 24 H 26 H Blood Pressure Pulse Oximetry Oxygen Delivery Fraction of Inspired Oxygen 02/04/25 04:55 02/04/25 05:12 02/04/25 05:56 Temperature 37.4 C Pulse Rate 48 L 47 L 47 L Respiratory Rate 30 H 22 H Blood Pressure 103/67 Pulse Oximetry 98 98 Oxygen Delivery Mechanical Ventilation Fraction of Inspired Oxygen 45 02/04/25 06:00 02/04/25 06:00 02/04/25 06:30 Temperature Pulse Rate 46 L 46 L 46 L Respiratory Rate 19 28 H Blood Pressure Pulse Oximetry Oxygen Delivery Fraction of Inspired Oxygen 02/04/25 06:57 02/04/25 06:57 02/04/25 07:28 Temperature Pulse Rate 47 L 47 L Respiratory Rate 28 H 30 H Blood Pressure Pulse Oximetry Oxygen Delivery Fraction of Inspired Oxygen 45 02/04/25 07:45 02/04/25 08:00 02/04/25 08:00 Temperature 37.8 C H Pulse Rate 48 L 51 L 51 L Respiratory Rate 27 H 20 20 Blood Pressure 94/58 L Pulse Oximetry 97 97 Oxygen Delivery Mechanical Ventilation Fraction of Inspired Oxygen 45 02/04/25 08:00 02/04/25 09:20 02/04/25 09:33 Temperature Pulse Rate 52 L 49 L 50 L Respiratory Rate 22 H 30 H Blood Pressure Pulse Oximetry Oxygen Delivery Fraction of Inspired Oxygen 02/04/25 09:35 02/04/25 10:00 02/04/25 10:00 Temperature 37.7 C H Pulse Rate 60 70 55 L Respiratory Rate 20 Blood Pressure 112/84 Pulse Oximetry 96 93 Oxygen Delivery Mechanical Ventilation Fraction of Inspired Oxygen 45 02/04/25 10:30 02/04/25 11:39 02/04/25 12:00 Temperature 37.4 C Pulse Rate 57 L 58 L 55 L Respiratory Rate 24 H 24 H 16 Blood Pressure Pulse Oximetry 96 Oxygen Delivery Fraction of Inspired Oxygen 02/04/25 12:00 02/04/25 12:00 02/04/25 12:02 Temperature Pulse Rate 55 L 55 L Respiratory Rate 24 H 24 H Blood Pressure Pulse Oximetry 96 Oxygen Delivery Mechanical Ventilation Fraction of Inspired Oxygen 45 45 02/04/25 12:03 02/04/25 14:00 Temperature 37.5 C Pulse Rate 51 L Respiratory Rate 23 H Blood Pressure 100/61 104/70 Pulse Oximetry 97 Oxygen Delivery Fraction of Inspired Oxygen Intake/Output Intake/Output: Intake & Output 02/01/25 02/02/25 02/03/25 02/04/25 23:59 23:59 23:59 23:59 Intake Total 780.8 2284.5 2627.0 1324.5 Output Total 1050 700 925 350 Balance -269.2 1584.5 1702.0 974.5 Meds/Results Medications: Active Medications Generic Name Dose Route Start Last Admin Trade Name Freq PRN Reason Stop Dose Admin Acetaminophen 650 mg 02/01/25 14:06 02/01/25 15:42 Acetaminophen 650 Mg Suppository RECTAL 650 mg Q6H PRN Administration Mild Pain (1-3) or Fever Acetylcysteine 200 mg 02/01/25 14:00 02/04/25 09:17 Acetylcysteine 20% Inhal Soln 800 Mg/4 Ml Vial INHALATION 200 mg Q6HRT TATYANA Administration Albuterol/Ipratropium 3 ml 01/30/25 14:00 02/04/25 09:17 Ipratropium 0.5 Mg/Albuterol Sulfate 2.5 Mg Ampul.Neb 3 Ml INHALATION 3 ml Q6HRT TATYANA Administration Alteplase, Recombinant 2 mg 02/02/25 10:10 Alteplase 2 Mg Vial (Cathflo) IV PUSH ONCE PRN Line Occlusion Dextrose 12.5 gm 02/02/25 10:13 Dextrose 50% 25 Gm/50 Ml Syringe IV PUSH PRN PRN Hypoglycemia Protocol Glucagon 1 mg 02/02/25 10:13 Glucagon For Inj 1 Mg Vial IM PRN PRN Hypoglycemia Protocol Glucose 15 gm 02/02/25 10:13 Glucose Oral Gel 15 Gm Of Glucse In 37.5 Gm Tube PO PRN PRN Hypoglycemia Protocol Dexmedetomidine HCl 400 mcg in 100 mls @ 24.75 mls/hr 01/30/25 10:30 02/04/25 12:02 Precedex 400 Mcg/100 Ml IV CONT 0.6 mcg/kg/hr .Q4H3M TATYANA 24.75 mls/hr Administration Protocol 0.6 MCG/KG/HR Cefepime HCl 2 gm/ Sodium 50 mls @ 100 mls/hr 02/02/25 08:00 02/04/25 05:29 Chloride IVPB Infused Q8HR TATYANA Infusion Multivitamins 1.25 ml/ 1,002.5 mls @ 50 mls/hr 02/02/25 14:00 02/03/25 13:43 Multivitamins 1.25 ml/ Amino IV CONT 40 mls/hr Acids/Dextrose .Q20H3M TATYANA Administration Protocol Dextrose 1,000 mls @ 50 mls/hr 02/02/25 10:12 Dextrose 10% IV CONT .Q20H PRN if PN is interrupted Fat Emulsion Intravenous 250 mls @ 20.833 mls/hr 02/02/25 14:00 02/04/25 01:45 Lipids 20% IVPB Infused Q24H TATYANA Infusion Dextrose 1,000 mls @ 100 mls/hr 02/02/25 10:13 Dextrose 5% 1,000 Ml IVPB PRN PRN Hypoglycemia Protocol Vancomycin HCl 1,500 mg in 500 mls @ 250 mls/hr 02/04/25 03:00 02/04/25 03:40 Vancomycin 1,500 Mg/Ns 500 Ml IVPB Infused Q18H TATYANA Infusion Insulin Aspart 2 - 5 units 02/02/25 12:00 02/04/25 13:58 Insulin Aspart (*Bkc) 100 Units/Ml SUB-Q Not Given Q6HR [facility] Protocol Multi-Ingred Cream/Lotion/Oil/Oint 1 applic 01/28/25 09:15 02/04/25 08:31 Mineral Oil/White Petrolatum Ointment EACH EYE 1 applic Q12HR TATYANA Administration Ondansetron HCl 4 mg 01/28/25 01:51 Ondansetron Inj 4 Mg/2 Ml Vial IV PUSH Q4H PRN Nausea Pantoprazole Sodium 40 mg 02/05/25 09:00 Pantoprazole Sodium Iv 40 Mg Vial IV PUSH QAM TATYANA Sodium Chloride 10 ml 01/28/25 14:00 02/04/25 04:59 Central Line Flush IV PUSH 10 ml Q8HR TATYANA Administration Sodium Chloride 20 ml 01/28/25 06:37 Central Line Flush IV PUSH PRN PRN after blood draws Radiology Results: ITS Impressions Abdomen/Pelvis CTA 01/28/25 00:08 IMPRESSION: Findings within the liver for which malignancy is suspected. Additional findings within the rectum for which acute hemorrhage is suspected (likely secondary to anorectal varices). No findings to suggest upper GI bleeding. 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 Incidental notation is made of cholelithiasis. Abdomen X-Ray 01/28/25 13:57 IMPRESSION: 1. Nasogastric tube in stomach. Head CT 02/02/25 13:34 IMPRESSION: 1. No acute intracranial process. 2. Stable age-related changes including mild diffuse volume loss and mild scattered white matter hypoattenuation consistent with chronic small vessel ischemic disease. Chest X-Ray 02/04/25 06:28 Impression: 1: Interval progression of diffuse bilateral airspace disease which may represent edema and/or pneumonia. Labs Labs: Laboratory Results - last 24 hr 02/03/25 02/03/25 02/03/25 17:20 19:47 23:25 WBC RBC Hgb Hct MCV MCH MCHC RDW Plt Count MPV Immature Gran % (Auto) Neut % (Auto) Lymph % (Auto) Ferry % (Auto) Eos % (Auto) Baso % (Auto) Lymph # (Auto) [place] # (Auto) Eos # (Auto) Baso # (Auto) Abs Immat Gran (auto) Absolute Neuts (auto) Absolute Nucleated RBC Band Neutrophils % Nucleated RBC % Platelet Estimate Polychromasia Anisocytosis Ovalocytes Schistocytes PT INR APTT Puncture Site ABG pH ABG pCO2 ABG pO2 ABG PO2/FiO2 Ratio ABG HCO3 ABG O2 Saturation ABG O2 Content ABG Base Excess A-a Gradient Oxyhemoglobin Carboxyhemoglobin Methemoglobin Reduced Hemoglobin Total Hemoglobin O2 Delivery Device O2 Liters/Min Minute Volume Vent Rate Vent Mode FiO2 Tidal Volume PEEP Peak Inspir Pressure Pressure Support Sodium Potassium Chloride Carbon Dioxide Anion Gap BUN Creatinine Estim Creat Clear Calc Estimated GFR Glucose POC Capillary Glucose 169 H 187 H Calcium Phosphorus Magnesium Total Bilirubin AST ALT Alkaline Phosphatase Ammonia Total Protein Albumin Vancomycin Trough 21.8 H 02/04/25 02/04/25 02/04/25 04:24 04:59 11:26 WBC 10.8 H RBC 2.80 L Hgb 9.5 L Hct 30.0 L MCV 107.1 H MCH 33.9 MCHC 31.7 L RDW 22.4 H Plt Count 101 L MPV 10.4 Immature Gran % (Auto) 1.1 H Neut % (Auto) 82.5 H Lymph % (Auto) 9.4 L Ferry % (Auto) 5.8 Eos % (Auto) 0.9 Baso % (Auto) 0.3 Lymph # (Auto) 1.01 Ferry # (Auto) 0.6 Eos # (Auto) 0.1 Baso # (Auto) 0.0 Abs Immat Gran (auto) 0.12 H Absolute Neuts (auto) 8.9 H Absolute Nucleated RBC 0.030 H Band Neutrophils % 0 Nucleated RBC % 0.3 H Platelet Estimate Decreased Polychromasia 1+ Anisocytosis 1+ Ovalocytes 1+ Schistocytes None seen PT 20.0 H INR 1.7 APTT 28.8 Puncture Site Right radial ABG pH 7.449 ABG pCO2 31.1 L ABG pO2 77.2 L ABG PO2/FiO2 Ratio 2.21 ABG HCO3 21.1 L ABG O2 Saturation 96.1 ABG O2 Content 14.5 L ABG Base Excess -2.2 A-a Gradient 136.2 Oxyhemoglobin 94.0 Carboxyhemoglobin 0.4 Methemoglobin 0.1 Reduced Hemoglobin 5.5 H Total Hemoglobin 10.9 L O2 Delivery Device Ventilator O2 Liters/Min Not Reportable Minute Volume Not Reportable Vent Rate 16 Vent Mode Assist control FiO2 35 Tidal Volume 400 PEEP 8 Peak Inspir Pressure Not Reportable Pressure Support Not Reportable Sodium 145 Potassium 3.6 Chloride 116 H Carbon Dioxide 21 L Anion Gap 8 BUN 39 H Creatinine 0.93 Estim Creat Clear Calc 90 Estimated GFR > 60 Glucose 182 H POC Capillary Glucose 152 H Calcium 9.4 Phosphorus 2.3 L Magnesium 1.9 Total Bilirubin 3.5 H AST 152 H ALT 46 H Alkaline Phosphatase 65 Ammonia 10 Total Protein 6.2 L Albumin 3.0 L Vancomycin Trough Quality VTE Prophylaxis VTE prophylaxis: mechanical ordered
[2025-02-04] MEDS: AMINO ACIDS 5%/DEXTROSE 15% 1,000 ML with MULTIVITAMINS-12 INJ VIAL 1 1.25 ML, MULTIVIT... 40 ML IV CONT (14:40)
[2025-02-04] MEDS: FAT EMULSIONS IV 20% 250 ML 20.83 ML IVPB (14:41)
[2025-02-04] MEDS: dexmedeTOMIDine 400 MCG/100 ML 400 MCG/100 ML BAG 33 MCG IV CONT ×2 (14:58→18:04)
[2025-02-04] MEDS: dexmedeTOMIDine 400 MCG/100 ML 400 MCG/100 ML BAG 41.25 MCG IV CONT (20:39)
[2025-02-04] MEDS: RAPID SEQUENCE INTUBATION KIT 1 EACH (21:15)
[2025-02-04] MEDS: ETOMIDATE 20 MG/10 ML AMPUL IV PUSH (21:22)
[2025-02-04] MEDS: ROCURONIUM BROMIDE 50 MG/5 ML VIAL IV PUSH (21:23)
[2025-02-04] MEDS: MIDAZOLAM 100MG/NS 100ML(*CRX) 100 MG/100 ML BAG IV CONT (21:25)
--- NOTE | 2025-02-04 21:43 | PM.EVENT ---
Event Note Event Note Event Note: Bedside RN contacted this provider due to concerns for a popped ET tube cuff. Patient now able to breathe around tube and talk around tube. Despite popped cuff, patient able to maintain an O2 sat greater than 93%. Contacted the dramatic art teacher to discuss case. CXR that was repeated this morning worsened and he recommended re-intubation. Given history of esophageal varices a bougie was utilized to reintubate the patient, see procedure note. No complications with intubation. Maintaining O2 sat of 97%. CXR repeated to verify placement. Versed gtt added to patient's sedation as the patient has been coughing around the ETT and flailing despite sedation with Precedex.
--- NOTE | 2025-02-04 21:52 | WPDPROCEDUR ---
Procedures Intubation Intubation Date: 02/04/25 Intubation Time: 21:24 Consent: Emergent, currently intubated requiring re-intubation. A pre-procedural Time-Out was completed immediately before starting the procedure and confirmed: Patient Identification, Site, Procedure, Patient Position and the Availability of Requisite Equipment: Yes Sedative: etomidate Mg given: 20 Paralytic: rocuronium Mg given: 50 Laryngoscope: fiber optic video scope Assist device used: Bougie ET tube size: 7.5 Tube secured depth (cm): 25 Tube secured location: lips Tube placement confirmation: equal breath sounds bilaterally, no breath sounds over epigastrium and confirmation by capnometry Patient tolerated procedure: well Intubation complications: none
[2025-02-04] MEDS: NOREPINEPHRINE 8 MG/D5W 250 ML 8 MG/250 ML BAG 9.38 MG IV CONT (22:00)
--- NOTE | 2025-02-04 22:35 | PC.NURSE ---
RN called to bedside from other patient's room by CASEY Moore at 2104. Patient found gurgling and trying to speak around ETT. RN attempted to reinflate the ETT cuff but the cuff was blown from patient's excessive coughing. Vicki Hooper, FLIGHT OPERATIONS COORDINATOR notified and bread distributor Janneth notified. Dr. Preciado updated on situation and received orders to reintubate patient. RT Dannielle and Nurys at bedside to assist with tube exchange. Patient received 20 etomidate and 50 of rocuronium to assist with tube exchange. Received orders from Dr. Preciado to add Versed drip for sedation and continue precedex. Restraints exchanged on patient as well as the others were loose from constant pulling. Patient resting comfortably post tube exchange. Vitals stable with slight drop in blood pressure requiring small dose of Levophed per Dr. Preciado. No further updates at this time.
[2025-02-04] MEDS: dexmedeTOMIDine 400 MCG/100 ML 400 MCG/100 ML BAG 20.63 MCG IV CONT (23:50)
[2025-02-05] VITALS (53 sets, daily range): BP systolic 91–131; BP diastolic 53–77; PULSE 45–68; RESP 20–31; TEMP 36.3–37.3; O2SAT 86–100
[2025-02-05] MEDS: ACETYLCYSTEINE 20% INHAL SOLN 800 MG/4 ML VIAL 200 MG INHALATION ×4 (01:30→20:07)
[2025-02-05] MEDS: IPRATROPIUM 0.5 MG/ALBUTEROL SULFATE 2.5 MG AMPUL.NEB 3 ML INHALATION ×4 (01:30→20:06)
[2025-02-05] MEDS: dexmedeTOMIDine 400 MCG/100 ML 400 MCG/100 ML BAG 33 MCG IV CONT ×3 (03:22→09:01)
[2025-02-05] MEDS: CEFEPIME 2 GM in SODIUM CHLORIDE 0.9% IV 50 ML 100 ML IVPB (05:10)
[2025-02-05] MEDS: CENTRAL LINE FLUSH 10 ML IV PUSH ×3 (05:11→22:12)
[2025-02-05 05:18] LABS: Hematocrit 31.3 % (37.0-47.0); Hemoglobin 10.0 g/dL (12.0-15.0); Immature Granulocyte Percent A 1.7 % (0-0.5); Lymphocytes Absolute Auto 1.21 K/mm3 (0.9-3.2); Mean Corpuscular HGB Conc 31.9 g/dl (32-36); Mean Corpuscular Hemoglobin 34.5 pg (26-34); Mean Corpuscular Volume 107.9 fl (80-100); Nucleated Red Blood Cells Absolute Auto 0.020 K/mm3 (0.0-0.012); Nucleated Red Blood Cells Perc 0.1 % (0.0-0.2); Platelet Count Result 132 k/mm3 (150-375); Red Blood Count 2.90 M/mm3 (4.2-5.4); White Blood Count 15.8 K/mm3 (4.5-10.0)
[2025-02-05 05:27] LABS: Ammonia 11 umol/L (9-30)
[2025-02-05 05:31] LABS: Alanine Aminotransferase 47 U/L (6-35); Albumin Level 2.9 g/dL (3.5-5.1); Alkaline Phosphatase 71 U/L (38-126); Anion Gap 7 mmol/L (4-12); Aspartate Amino Transferase 151 U/L (14-36); Bilirubin,Total 4.2 mg/dL (0.2-1.3); Blood Urea Nitrogen 44 mg/dL (7-17); Calcium 9.2 mg/dL (8.4-10.2); Carbon Dioxide 20 mmol/L (22-30); Chloride 116 mmol/L (98-107); Estimated CRCL calculation 82 ml/min; Estimated Glomerular Filt Rate 55; Glucose 171 mg/dL (65-110); Magnesium 1.8 mg/dL (1.6-2.3); Potassium 3.5 mmol/L (3.4-5.0); Sodium 143 mmol/L (137-145); Total Protein 6.3 g/dL (6.3-8.2); Triglycerides 139 mg/dL (<150)
[2025-02-05 05:33] LABS: INR 1.6; Prothrombin Time 19.3 Seconds (11.1-14.7)
[2025-02-05 05:34] LABS: Partial Thromboplastin Time 30.0 Seconds (22.3-36.8)
[2025-02-05 05:37] LABS: Alveolar/Arterial O2 Gradient 295.7 mmHg; Arterial Blood Gas Tidal Volume 400 ml; Arterial Blood Gas Ventilator rate 16 /MIN; Carboxyhemoglobin 0.8 % THb (0-2.0); Fractional Inspired Oxygen 55 %; HCO3 ABG 20.2 mEq/l (22.0-26.0); Methemoglobin ABG 0.1 %THb (0-1.5); Modified Allen's Test Unable to perform; Oxygen Content ABG 14.2 %vol (16.0-22.0); Oxygen Saturation ABG 92.4 % (95.0-100.0); PCO2 ABG 31.5 mmHg (35.0-45.0); PO2 ABG 61.4 mmHg (80.0-100.0); PO2 FiO2 Ratio Arterial Blood 1.12 %; Reduced Hemoglobin 8.3 %THb (0-5.0); Site Drawn RIGHT RADIAL
[2025-02-05 05:38] LABS: Anisocytosis 2+
[2025-02-05 05:39] LABS: Hypochromasia 1+; Polychromasia 1+; Schistocytes None Seen
[2025-02-05] MEDS: PANTOPRAZOLE SODIUM IV 40 MG VIAL IV PUSH (09:02)
[2025-02-05] MEDS: MINERAL OIL/WHITE PETROLATUM OINTMENT 1 APPLIC EACH EYE ×2 (09:02→20:26)
--- NOTE | 2025-02-05 09:02 | P.PNINT_ITS ---
Progress Note: A&P Assessment and Plan (1) Encephalopathy: Qualifiers: Encephalopathy type: metabolic Qualified Code(s): G93.41 - Metabolic encephalopathy Code(s): G93.40 - Encephalopathy, unspecified Status: Acute Assessment and Plan: Multifactorial, initially thought to be secondary to hyperammonemia, liver dysfunction,, shock -patient did receive lactulose enema on 01/31/2025, good bowel movements x2 Ammonia levels have normalized Continue to monitor -anisocoria, CT scan of the brain 01/28/2025 with no significant abnormality seen -continues to be encephalopathic -02/02/2025, repeat CT scan of the brain with no acute intracranial process, chronic small vessel ischemic disease -appreciate Neurology evaluation, -02/04: EEG: Abnormal record due to the absence of the normal background rhythm and due to the presence of bihemispheric slow activity. These findings are suggestive of organic or metabolic encephalopathy or postictal state. Clinical correlation recommended. This tracing is not compatible with electrocerebral silence. 02/04: Patient did open her eyes and tracked, followed commands with lower extremities 02/05: High required increasing sedation overnight due to hypoxia and worsening chest x-ray (2) Airway compromise: Code(s): J98.8 - Other specified respiratory disorders Status: Acute Assessment and Plan: Patient encephalopathic with elevated ammonia level, not protecting her airway, also intubated for aspiration prevention and for EGD -01/28: Intubated patient for airway protection due to encephalopathy -currently on CMV mode of ventilation, peep of 5 and 35% FiO2 -chest x-ray and ABGs reviewed, maintain O2 sats > 92% -sedated with Precedex infusion, will have bedside RN wean Precedex and try to wake up patient. When she is more awake will place her on SBT and evaluate for extubation 02/01: Patient continues to have thick ETT secretions, added Pulmozyme and Mucomyst nebulizer 02/02: Patient spiked fevers, continues to have thick ETT secretions, borderline blood pressure, started patient on cefepime and vancomycin (02/02) 02/02: Blood cultures: No growth x2 02/02: Sputum culture: Moderate amount Gram-positive cocci, Gram-negative bacilli isolated 02/04: Lasix 40 mg IV x1 -02/05: Obtain CT scan of the chest abdomen pelvis to evaluate for infiltrates, consolidation and pneumonia, continue antibiotics as above (3) Pneumonia: Code(s): J18.9 - Pneumonia, unspecified organism Status: Acute Assessment and Plan: 02/02: Chest x-ray with worsening infiltrates, thick cream to yellow colored secretion -sputum cultures as above -continue antibiotics as above (4) Hemorrhagic shock: Code(s): R57.8 - Other shock Status: Acute Assessment and Plan: RESOLVED Pt presented with rectal bleed, CT showed esophageal and rectal varices. -Transfused 2 units unmatched PRBC in the ER -hemoglobin this morning is 9.3, platelets 186 -01/28: INR 1.6, will give vitamin K -01/28: Transfused 1 unit of FFP and 1 unit of packed RBC -01/30: 1 unit of FFP and 1 unit of packed RBCs were transfused 02/05: Hypoxia, hypotension, Levophed was restarted,, maintain MAP > 65 mm Hg at all times for adequate end organ perfusion, continue antibiotics as above -01/29: Hb 7.3, INR 1.8 this morning. Transfused 1 unit of FFP and 1 unit of packed RBC, will also repeat vitamin K IVPB -01/30: Hemoglobin remained stable, decreased NG output. Discussed with GI, will continue octreotide. Discontinued Protonix infusion and IV Protonix -01/31: Hemoglobin is 9.7 this morning and stable, NG was removed 01/30 with EGD. Will continue octreotide per GI -02/01: Hemoglobin 10.1 this morning in stable, patient remains on octreotide infusion -04/04: Hemoglobin 10.4 and stable, patient remains on octreotide infusion per GI -02/03: Hemoglobin remained stable at 9.0 -02/04: Hemoglobin 9.5 and stable 01/28: CTA scan of the abdomen and pelvis: Findings within the liver for which malignancy is suspected. Additional findings within the rectum for which acute hemorrhage is suspected (likely secondary to anorectal varices). No findings to suggest upper GI bleeding. 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 Incidental notation is made of cholelithiasis. (5) Esophageal varices: Qualifiers: Esophageal varices bleeding: with bleeding Esophageal varices type: unspecified type Qualified Code(s): I85.01 - Esophageal varices with bleeding Code(s): I85.00 - Esophageal varices without bleeding Status: Acute Assessment and Plan: Esophageal varices as seen on CTA abdomen and pelvis. -appreciate GI evaluation -01/28: EGD: Showed actively bleeding gastric varix at the gastric cardia, a band ligation device was used to place 1 band, moderate gastritis was seen in the stomach. The gastric has a moderate portal hypertensive change. Large amount of blood was seen in the distal esophagus and the stomach the bowel and the 2nd portion of duodenum was normal with no ulcers or masses 01/30: Repeat EGD: Showed medium grade 3 varices (large varices almost occluding the esophageal lumen were present in the distal esophagus. There was no evidence of bleeding bleeding corresponding to the previous band. To more bands were placed. There was a large fundal pool of blood in the stomach. The bulb and the 2nd portion of duodenum was normal Appreciate GI following the patient, discussed with GI, -OFF octreotide infusion (6) Rectal varices: Code(s): K64.9 - Unspecified hemorrhoids Status: Acute Assessment and Plan: Likely related to alcoholic cirrhosis, (7) Alcoholic cirrhosis of liver with ascites: Code(s): K70.31 - Alcoholic cirrhosis of liver with ascites Status: Acute Assessment and Plan: History of alcoholic cirrhosis -LFTs and bilirubin elevated but stable -could be related to shock liver, cirrhosis, bleeding -status post ceftriaxone (01/28) for SBP prophylaxis -continue to monitor LFTs and bilirubin -INR elevated, status post vitamin K and FFP, INR is stable -continue to monitor -02/04: INR 1.7, vitamin K 10 mg IV piggyback x1 (8) Acute kidney injury: Code(s): N17.9 - Acute kidney failure, unspecified Status: Acute Assessment and Plan: Acute kidney injury, likely related to hemorrhagic shock -low urine output, creatinine and BUN normal -maintain adequate MAP and SBP -continue to monitor urine output, renal function electrolytes -creatinine remains normal (9) Abnormal CT of liver: Code(s): R93.2 - Abnormal findings on diagnostic imaging of liver and biliary tract Status: Acute Assessment and Plan: CT abdomen and pelvis as above: Suspicious for malignancy -AFP significantly elevated to 83,546 (0.0-9.2) -GI is following the patient: Recommended may need MRI liver protocol when more stable and extubated Plan DVT prophylaxis: SCDs, no chemoprophylaxis due to hemorrhagic shock and GI bleed Stress ulcer prophylaxis: Protonix IV daily Nutrition: TPN started on 02/02 Code Status: DNR Critical Care Time Spent: 33 minutes 02/01: Discussed at length with patient's sister Jinny, she wants to be the decision maker, appreciate Allison from care coordination discussed with Jinny and patient's daughter Modesta. Modesta agreed the Jinny to be the surrogate decision maker. They also agree to make her a do not resuscitate, orders for DNR when placed in the chart. I answered all the questions 01/31: Discussed with Modesta Stearns, patient's daughter at [phone], updated the daughter with patient's condition from the time she came to the hospital until today. She is aware that patient is not waking up despite being off sedation likely related to hepatic encephalopathy. I updated her with the repeat EGD that was done yesterday and that the patient has received multiple blood products. I also discussed with her code status to which the daughter stated she wanted her to be a full code. She did not have any other questions. 01/30: Discussed with Jinny Cabezas, patient's sister and updated her with patient's condition and plan of care. She stated that the patient has a daughter with anemia of Modesta Stearns, she was supposed to contact the daughter and I asked to give me a call. Will try to locate daughter's number and will give her a call and explain to her patient's condition/situation and recommendations of the trucking manager. Due to a high probability of clinically significant, life threatening deterioration, the patient required my highest level of preparedness to intervene emergently and I personally spent this critical care time directly and personally managing the patient. This critical care time included obtaining a history; examining the patient; pulse oximetry; ordering and review of studies; arranging urgent treatment with development of a management plan; evaluation of patient's response to treatment; frequent reassessment; and discussions with other providers. It was exclusive of separately billable procedures and treating other patients and teaching time. Please see Assessment and Plan section and the rest of the note for further information on patient assessment and treatment This dictation may have been done utilizing a voice recognition system. Attempts have been made to correct errors. However, there may be uncorrected grammatical, spelling, and recognitions errors present. Subjective Date/time seen: 02/05/25 09:02 Interval history: Reason for consult: GI bleed, Esophageal and rectal varices, shock, altered mental status, anisocoria, unable to protect her airway, intubated and on mechanical ventilator, hyperkalemia, acute renal failure, elevated LFTs 01/28: EGD: Showed actively bleeding gastric varix at the gastric cardia, a band ligation device was used to place 1 band, moderate gastritis was seen in the stomach. The gastric has a moderate portal hypertensive change. Large amount of blood was seen in the distal esophagus and the stomach the bowel and the 2nd portion of duodenum was normal with no ulcers or masses 01/30: Repeat EGD: Showed medium grade 3 varices (large varices almost occluding the esophageal lumen were present in the distal esophagus. There was no evidence of bleeding bleeding corresponding to the previous band. To more bands were placed. There was a large fundal pool of blood in the stomach. The bulb and the 2nd portion of duodenum was normal 02/05/2025: Patient seen examined the ICU, remains intubated on CMV mode of ventilation, peep of 8, 55% FiO2. FiO2 had to be increased overnight this patient was desaturating. Sedated with Precedex and Versed infusion. Patient opens her eyes but does not follow simple commands this morning. She did wiggle it does to commands yesterday and open her eyes and tracked. Withdraws to pain in all extremities. Afebrile overnight, did not respond very well to diuresis yesterday. Patient was restarted on norepinephrine at 1 mcg/min Hemoglobin remains stable Review of Systems Review of Systems: ROS unobtainable: Yes unobtainable due to endotracheal tube, unobtainable due to medical condition and unobtainable due to mental status Exam Narrative: General: Patient is intubated and sedated in no acute distress HEENT:? Pupils unequal, R>L, but reactive, sclera is icteric Neck:? supple Respiratory:? Coarse breath sounds bilaterally R > L, decreased at bases, no wheezing noted this more, adequate air Cardiac:? S1 S2 normal, regular rate and rhythm Abdomen:? soft, nontender, non distended, morbidly obese, hypoactive bowel sounds Extremities:?b/l edema of lower extremities, palpable pedal pulses Neuro:? Patient is intubated on Precedex infusion, barely opens her eyes to name, does not track or follow simple commands.. withdraws to pain stimulus. Patient is moving all her extremities spontaneously and nonpurposeful Skin:? Feet are warm today Psych:? unable to assess Objective Data Vital Signs Vital Signs: Vital Signs - 24 hr 02/04/25 09:20 02/04/25 09:33 02/04/25 09:35 Temperature Pulse Rate 49 L 50 L 60 Respiratory Rate 22 H 30 H Blood Pressure Pulse Oximetry 96 Oxygen Delivery Mechanical Ventilation Fraction of Inspired Oxygen 45 02/04/25 10:00 02/04/25 10:00 02/04/25 10:30 Temperature 99.8 F H Pulse Rate 70 55 L 57 L Respiratory Rate 20 24 H Blood Pressure 112/84 Pulse Oximetry 93 Oxygen Delivery Fraction of Inspired Oxygen 02/04/25 11:30 02/04/25 11:39 02/04/25 12:00 Temperature 99.4 F Pulse Rate 54 L 58 L 55 L Respiratory Rate 24 H 16 Blood Pressure Pulse Oximetry 94 96 Oxygen Delivery Mechanical Ventilation Fraction of Inspired Oxygen 45 02/04/25 12:00 02/04/25 12:00 02/04/25 12:00 Temperature Pulse Rate 55 L 53 L Respiratory Rate 24 H Blood Pressure Pulse Oximetry 96 Oxygen Delivery Mechanical Ventilation Fraction of Inspired Oxygen 45 45 02/04/25 12:02 02/04/25 12:03 02/04/25 13:30 Temperature Pulse Rate 55 L 57 L Respiratory Rate 24 H 24 H Blood Pressure 100/61 Pulse Oximetry Oxygen Delivery Fraction of Inspired Oxygen 02/04/25 14:00 02/04/25 14:00 02/04/25 14:30 Temperature 99.5 F Pulse Rate 51 L 57 L 54 L Respiratory Rate 23 H Blood Pressure 104/70 Pulse Oximetry 97 96 Oxygen Delivery Mechanical Ventilation Fraction of Inspired Oxygen 45 02/04/25 14:52 02/04/25 14:58 02/04/25 14:58 Temperature Pulse Rate 52 L 54 L 54 L Respiratory Rate 30 H 26 H 26 H Blood Pressure Pulse Oximetry Oxygen Delivery Fraction of Inspired Oxygen 02/04/25 16:00 02/04/25 16:00 02/04/25 16:00 Temperature 99.3 F Pulse Rate 59 L 59 L Respiratory Rate 25 H 25 H Blood Pressure 98/60 L Pulse Oximetry 96 96 Oxygen Delivery Mechanical Ventilation Fraction of Inspired Oxygen 45 45 02/04/25 16:00 02/04/25 17:00 02/04/25 18:00 Temperature 99.1 F Pulse Rate 59 L 57 L 53 L Respiratory Rate 24 H 24 H Blood Pressure 92/67 L Pulse Oximetry 97 Oxygen Delivery Fraction of Inspired Oxygen 02/04/25 18:00 02/04/25 18:00 02/04/25 18:04 Temperature Pulse Rate 58 L 52 L 53 L Respiratory Rate 23 H Blood Pressure Pulse Oximetry 96 Oxygen Delivery Mechanical Ventilation Fraction of Inspired Oxygen 45 02/04/25 18:04 02/04/25 19:46 02/04/25 19:51 Temperature Pulse Rate 53 L 51 L Respiratory Rate 23 H 22 H Blood Pressure Pulse Oximetry 98 Oxygen Delivery Mechanical Ventilation Fraction of Inspired Oxygen 45 45 02/04/25 20:00 02/04/25 20:00 02/04/25 20:04 Temperature Pulse Rate 49 L 48 L 49 L Respiratory Rate 23 H 22 H Blood Pressure Pulse Oximetry Oxygen Delivery Fraction of Inspired Oxygen 02/04/25 20:05 02/04/25 20:13 02/04/25 20:28 Temperature Pulse Rate 48 L 51 L 58 L Respiratory Rate 23 H 28 H Blood Pressure Pulse Oximetry 97 Oxygen Delivery Mechanical Ventilation Fraction of Inspired Oxygen 45 02/04/25 20:39 02/04/25 20:39 02/04/25 21:21 Temperature Pulse Rate 59 L 59 L 73 Respiratory Rate 25 H 29 H Blood Pressure Pulse Oximetry 95 Oxygen Delivery Mechanical Ventilation Fraction of Inspired Oxygen 65 02/04/25 21:25 02/04/25 21:45 02/04/25 22:00 Temperature Pulse Rate 60 62 54 L Respiratory Rate 18 20 Blood Pressure Pulse Oximetry Oxygen Delivery Fraction of Inspired Oxygen 02/04/25 22:00 02/04/25 22:00 02/04/25 22:00 Temperature 99 F Pulse Rate 54 L 54 L 60 Respiratory Rate 23 H 18 Blood Pressure 77/44 L 74/54 L Pulse Oximetry 94 Oxygen Delivery Fraction of Inspired Oxygen 02/04/25 22:15 02/04/25 22:30 02/04/25 22:31 Temperature 99 F Pulse Rate 53 L 65 57 L Respiratory Rate 22 H 23 H Blood Pressure 82/50 L 128/69 Pulse Oximetry 95 Oxygen Delivery Fraction of Inspired Oxygen 08/13/25 22:31 02/04/25 22:45 02/04/25 22:45 Temperature 99 F 99 F Pulse Rate 56 L 55 L 55 L Respiratory Rate 23 H 22 H Blood Pressure 128/69 123/65 123/65 Pulse Oximetry 99 99 Oxygen Delivery Fraction of Inspired Oxygen 02/04/25 22:47 02/04/25 23:00 02/04/25 23:15 Temperature 99 F Pulse Rate 76 53 L 49 L Respiratory Rate 22 H Blood Pressure 91/52 L 85/51 L Pulse Oximetry 97 96 Oxygen Delivery Mechanical Ventilation Fraction of Inspired Oxygen 65 02/04/25 23:15 02/04/25 23:15 02/04/25 23:31 Temperature 99 F 99 F Pulse Rate 50 L 50 L 50 L Respiratory Rate 22 H 21 H 21 H Blood Pressure 85/51 L 95/60 L Pulse Oximetry 96 97 Oxygen Delivery Fraction of Inspired Oxygen 02/04/25 23:32 02/04/25 23:40 02/04/25 23:45 Temperature 99 F Pulse Rate 50 L 49 L Respiratory Rate 21 H 21 H Blood Pressure 130/73 Pulse Oximetry 97 99 Oxygen Delivery Mechanical Ventilation Fraction of Inspired Oxygen 65 65 02/04/25 23:45 02/04/25 23:50 02/04/25 23:50 Temperature Pulse Rate 54 L 52 L 51 L Respiratory Rate 22 H 22 H Blood Pressure 130/73 Pulse Oximetry Oxygen Delivery Fraction of Inspired Oxygen 02/05/25 00:00 02/05/25 00:00 02/05/25 00:00 Temperature 99.1 F Pulse Rate 52 L 52 L 52 L Respiratory Rate 20 20 Blood Pressure 131/77 131/77 Pulse Oximetry 99 Oxygen Delivery Fraction of Inspired Oxygen 02/05/25 00:00 02/05/25 00:00 02/05/25 00:15 Temperature 99.2 F Pulse Rate 51 L 53 L 49 L Respiratory Rate 20 22 H Blood Pressure 94/59 L Pulse Oximetry 98 Oxygen Delivery Fraction of Inspired Oxygen 02/05/25 00:20 02/05/25 01:00 02/05/25 01:31 Temperature 99.2 F Pulse Rate 55 L 48 L 47 L Respiratory Rate 25 H 21 H 21 H Blood Pressure 99/64 L Pulse Oximetry 99 Oxygen Delivery Fraction of Inspired Oxygen 02/05/25 01:36 02/05/25 01:38 02/05/25 02:00 Temperature Pulse Rate 48 L 49 L 58 L Respiratory Rate 22 H Blood Pressure Pulse Oximetry 99 Oxygen Delivery Mechanical Ventilation Fraction of Inspired Oxygen 55 02/05/25 02:00 02/05/25 02:00 02/05/25 02:00 Temperature 98.9 F Pulse Rate 56 L 56 L 56 L Respiratory Rate 24 H 24 H Blood Pressure 103/60 103/60 Pulse Oximetry 97 Oxygen Delivery Fraction of Inspired Oxygen 02/05/25 02:00 02/05/25 03:00 02/05/25 03:15 Temperature 98.7 F Pulse Rate 56 L 54 L 55 L Respiratory Rate 24 H 24 H 30 H Blood Pressure 103/63 Pulse Oximetry 97 Oxygen Delivery Fraction of Inspired Oxygen 02/05/25 03:22 02/05/25 03:22 02/05/25 04:00 Temperature Pulse Rate 56 L 56 L 53 L Respiratory Rate 28 H 31 H 23 H Blood Pressure Pulse Oximetry Oxygen Delivery Fraction of Inspired Oxygen 02/05/25 04:00 02/05/25 04:00 02/05/25 04:00 Temperature Pulse Rate 53 L 53 L 53 L Respiratory Rate 23 H Blood Pressure 116/73 Pulse Oximetry Oxygen Delivery Fraction of Inspired Oxygen 02/05/25 04:00 02/05/25 04:00 02/05/25 04:25 Temperature 98.7 F Pulse Rate 53 L 53 L Respiratory Rate 23 H 23 H Blood Pressure 116/73 Pulse Oximetry 98 97 Oxygen Delivery Mechanical Ventilation Fraction of Inspired Oxygen 55 55 02/05/25 04:56 02/05/25 05:00 02/05/25 05:10 Temperature 98.7 F Pulse Rate 49 L 50 L 47 L Respiratory Rate 21 H 23 H Blood Pressure 94/61 L Pulse Oximetry 96 96 Oxygen Delivery Mechanical Ventilation Fraction of Inspired Oxygen 55 02/05/25 06:00 02/05/25 06:00 02/05/25 06:00 Temperature 98.8 F Pulse Rate 50 L 50 L 50 L Respiratory Rate 25 H 25 H Blood Pressure 104/65 Pulse Oximetry 96 Oxygen Delivery Fraction of Inspired Oxygen 02/05/25 06:00 02/05/25 06:00 02/05/25 06:20 Temperature Pulse Rate 50 L 50 L 50 L Respiratory Rate 26 H 26 H Blood Pressure 104/65 Pulse Oximetry Oxygen Delivery Fraction of Inspired Oxygen 02/05/25 06:20 02/05/25 07:20 02/05/25 07:35 Temperature Pulse Rate 50 L 45 L Respiratory Rate 26 H 24 H Blood Pressure Pulse Oximetry Oxygen Delivery Fraction of Inspired Oxygen 55 02/05/25 07:58 02/05/25 07:59 02/05/25 08:32 Temperature Pulse Rate 46 L 46 L 47 L Respiratory Rate 24 H 25 H Blood Pressure 99/63 L Pulse Oximetry Oxygen Delivery Fraction of Inspired Oxygen 02/05/25 08:36 Temperature Pulse Rate 47 L Respiratory Rate Blood Pressure Pulse Oximetry 99 Oxygen Delivery Mechanical Ventilation Fraction of Inspired Oxygen 55 Intake/Output Intake/Output: Intake & Output 02/02/25 02/03/25 02/04/25 02/05/25 23:59 23:59 23:59 23:59 Intake Total 2284.5 2627.0 3305.6 592.0 Output Total 377 073 5381 275 Balance 1584.5 1702.0 2205.6 317.0 Meds/Results Medications: Active Medications Generic Name Dose Route Start Last Admin Trade Name Freq PRN Reason Stop Dose Admin Acetaminophen 650 mg 02/01/25 14:06 02/01/25 15:42 Acetaminophen 650 Mg Suppository RECTAL 650 mg Q6H PRN Administration Mild Pain (1-3) or Fever Acetylcysteine 200 mg 02/01/25 14:00 02/05/25 08:31 Acetylcysteine 20% Inhal Soln 800 Mg/4 Ml Vial INHALATION 200 mg Q6HRT TATYANA Administration Albuterol/Ipratropium 3 ml 01/30/25 14:00 02/05/25 08:31 Ipratropium 0.5 Mg/Albuterol Sulfate 2.5 Mg Ampul.Neb 3 Ml INHALATION 3 ml Q6HRT TATYANA Administration Alteplase, Recombinant 2 mg 02/02/25 10:10 Alteplase 2 Mg Vial (Cathflo) IV PUSH ONCE PRN Line Occlusion Dextrose 12.5 gm 02/02/25 10:13 Dextrose 50% 25 Gm/50 Ml Syringe IV PUSH PRN PRN Hypoglycemia Protocol Glucagon 1 mg 02/02/25 10:13 Glucagon For Inj 1 Mg Vial IM PRN PRN Hypoglycemia Protocol Glucose 15 gm 02/02/25 10:13 Glucose Oral Gel 15 Gm Of Glucse In 37.5 Gm Tube PO PRN PRN Hypoglycemia Protocol Dexmedetomidine HCl 400 mcg in 100 mls @ 33 mls/hr 01/30/25 10:30 02/05/25 07:59 Precedex 400 Mcg/100 Ml IV CONT 0.8 mcg/kg/hr .Q3H2M TATYANA 33 mls/hr Titration Protocol 0.8 MCG/KG/HR Cefepime HCl 2 gm/ Sodium 50 mls @ 100 mls/hr 02/02/25 08:00 02/05/25 05:40 Chloride IVPB Infused Q8HR TATYANA Infusion Multivitamins 1.25 ml/ 1,002.5 mls @ 50 mls/hr 02/02/25 14:00 02/04/25 14:40 Multivitamins 1.25 ml/ Amino IV CONT 40 mls/hr Acids/Dextrose .Q20H3M TATYANA Administration Protocol Dextrose 1,000 mls @ 50 mls/hr 02/02/25 10:12 Dextrose 10% IV CONT .Q20H PRN if PN is interrupted Fat Emulsion Intravenous 250 mls @ 20.833 mls/hr 02/02/25 14:00 02/05/25 02:45 Lipids 20% IVPB Infused Q24H TATYANA Infusion Dextrose 1,000 mls @ 100 mls/hr 02/02/25 10:13 Dextrose 5% 1,000 Ml IVPB PRN PRN Hypoglycemia Protocol Vancomycin HCl 1,500 mg in 500 mls @ 250 mls/hr 02/04/25 03:00 02/04/25 22:40 Vancomycin 1,500 Mg/Ns 500 Ml IVPB Infused Q18H TATYANA Infusion Midazolam HCl 100 mg in 100 mls @ 0 mls/hr 02/04/25 21:25 02/05/25 07:35 Versed 100 Mg/Ns 100 Ml IV CONT 0 mg/hr .Q0M TATYANA 0 mls/hr Titration Protocol Norepinephrine Bitartrate 8 mg in 250 mls @ 1.875 mls/hr 02/04/25 22:15 02/05/25 07:58 Levophed 8 Mg/D5w 250 Ml IV CONT 1 mcg/min .Q24H TATYANA 1.88 mls/hr Titration Protocol 1 MCG/MIN Albumin Human 25 gm in 500 mls @ 125 mls/hr 02/05/25 08:00 02/05/25 08:14 Albumin Human 5% IV CONT 02/05/25 11:59 125 mls/hr .Q4H ONE Administration Insulin Aspart 2 - 5 units 02/02/25 12:00 02/05/25 06:08 Insulin Aspart (*Bkc) 100 Units/Ml SUB-Q Not Given Q6HR [facility] Protocol Multi-Ingred Cream/Lotion/Oil/Oint 1 applic 01/28/25 09:15 02/04/25 20:38 Mineral Oil/White Petrolatum Ointment EACH EYE 1 applic Q12HR TATYANA Administration Ondansetron HCl 4 mg 01/28/25 01:51 Ondansetron Inj 4 Mg/2 Ml Vial IV PUSH Q4H PRN Nausea Pantoprazole Sodium 40 mg 02/05/25 09:00 Pantoprazole Sodium Iv 40 Mg Vial IV PUSH QAM TATYANA Sodium Chloride 10 ml 01/28/25 14:00 02/05/25 05:11 Central Line Flush IV PUSH 10 ml Q8HR TATYANA Administration Sodium Chloride 20 ml 01/28/25 06:37 Central Line Flush IV PUSH PRN PRN after blood draws Radiology Results: ITS Impressions Abdomen/Pelvis CTA 01/28/25 00:08 IMPRESSION: Findings within the liver for which malignancy is suspected. Additional findings within the rectum for which acute hemorrhage is suspected (likely secondary to anorectal varices). No findings to suggest upper GI bleeding. 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 Incidental notation is made of cholelithiasis. Abdomen X-Ray 01/28/25 13:57 IMPRESSION: 1. Nasogastric tube in stomach. Head CT 02/02/25 13:34 IMPRESSION: 1. No acute intracranial process. 2. Stable age-related changes including mild diffuse volume loss and mild scattered white matter hypoattenuation consistent with chronic small vessel ischemic disease. Chest X-Ray 02/05/25 06:22 Impression: 1: Stable diffuse bilateral airspace consolidation which may represent pneumonia and/or edema. Labs Labs: Laboratory Results - last 24 hr 02/04/25 02/04/25 02/04/25 11:26 17:41 23:04 WBC RBC Hgb Hct MCV MCH MCHC RDW Plt Count MPV Immature Gran % (Auto) Neut % (Auto) Lymph % (Auto) [place] % (Auto) Eos % (Auto) Baso % (Auto) Lymph # (Auto) [place] # (Auto) Eos # (Auto) Baso # (Auto) Abs Immat Gran (auto) Absolute Neuts (auto) Absolute Nucleated RBC Band Neutrophils % Nucleated RBC % Platelet Estimate Polychromasia Hypochromasia Anisocytosis Schistocytes PT INR APTT Puncture Site ABG pH ABG pCO2 ABG pO2 ABG PO2/FiO2 Ratio ABG HCO3 ABG O2 Saturation ABG O2 Content ABG Base Excess A-a Gradient Oxyhemoglobin Carboxyhemoglobin Methemoglobin Reduced Hemoglobin Total Hemoglobin O2 Delivery Device O2 Liters/Min Minute Volume Vent Rate Vent Mode FiO2 Tidal Volume PEEP Peak Inspir Pressure Pressure Support Sodium Potassium Chloride Carbon Dioxide Anion Gap BUN Creatinine Estim Creat Clear Calc Estimated GFR Glucose POC Capillary Glucose 152 H 186 H 161 H Lactic Acid Calcium Phosphorus Magnesium Total Bilirubin AST ALT Alkaline Phosphatase Ammonia Total Protein Albumin Triglycerides 02/05/25 02/05/25 05:07 05:25 WBC 15.8 H RBC 2.90 L Hgb 10.0 L Hct 31.3 L MCV 107.9 H MCH 34.5 H MCHC 31.9 L RDW 22.7 H Plt Count 132 L MPV 10.8 H Immature Gran % (Auto) 1.7 H Neut % (Auto) 83.0 H Lymph % (Auto) 7.7 L [place] % (Auto) 4.9 Eos % (Auto) 2.1 Baso % (Auto) 0.6 Lymph # (Auto) 1.21 [place] # (Auto) 0.8 H Eos # (Auto) 0.3 Baso # (Auto) 0.1 Abs Immat Gran (auto) 0.27 H Absolute Neuts (auto) 13.1 H Absolute Nucleated RBC 0.020 H Band Neutrophils % Not Reportable Nucleated RBC % 0.1 Platelet Estimate Slightly decreased Polychromasia 1+ Hypochromasia 1+ Anisocytosis 2+ Schistocytes None seen PT 19.3 H INR 1.6 APTT 30.0 Puncture Site Right radial ABG pH 7.424 ABG pCO2 31.5 L ABG pO2 61.4 L ABG PO2/FiO2 Ratio 1.12 ABG HCO3 20.2 L ABG O2 Saturation 92.4 L ABG O2 Content 14.2 L ABG Base Excess -3.4 A-a Gradient 295.7 Oxyhemoglobin 90.8 Carboxyhemoglobin 0.8 Methemoglobin 0.1 Reduced Hemoglobin 8.3 H Total Hemoglobin 11.1 L O2 Delivery Device Ventilator O2 Liters/Min Not Reportable Minute Volume Not Reportable Vent Rate 16 Vent Mode Cmv FiO2 55 Tidal Volume 400 PEEP 8 Peak Inspir Pressure Not Reportable Pressure Support Not Reportable Sodium 143 Potassium 3.5 Chloride 116 H Carbon Dioxide 20 L Anion Gap 7 BUN 44 H Creatinine 1.02 H Estim Creat Clear Calc 82 Estimated GFR 55 L Glucose 171 H POC Capillary Glucose Lactic Acid 1.7 Calcium 9.2 Phosphorus 2.7 Magnesium 1.8 Total Bilirubin 4.2 H AST 151 H ALT 47 H Alkaline Phosphatase 71 Ammonia 11 Total Protein 6.3 Albumin 2.9 L Triglycerides 139 Quality VTE Prophylaxis VTE prophylaxis: mechanical ordered
--- NOTE | 2025-02-05 11:30 | PCFNICU ---
ICU Rounding Note: Pt current nutrition is TPN at 50 ml/hr. Last recorded weight is 161.5 kg, up from 155 kg on admit. Bowel Motility: No BM reported since admit. Labs Reviewed: Glu 171, BUN 44, Alb 2.9, Cr 1.02 Meds Noted: Precedex, Versed, Clinimix 5/15 at 50 ml/hr with 250 ml of 20% Lipid Emulsion. Skin: WNL Additional Notes: Patient remains on mechanical vent. TPN remains increased to 50 ml/hr, which is providing 1352 kcal/60 gm protein. Agree with diet orders at this time. Following daily in ICU rounds. Will monitor weight, labs, skin, diet orders, meds every Sunday and Sunday.
--- NOTE | 2025-02-05 12:23 | P.PNGI_ITS ---
Progress Note: A&P Assessment and Plan (1) Esophageal varices: Qualifiers: Esophageal varices bleeding: with bleeding Esophageal varices type: unspecified type Qualified Code(s): I85.01 - Esophageal varices with bleeding Code(s): I85.00 - Esophageal varices without bleeding Status: Acute Assessment and Plan: Patient is still intubated, and with poor neurological status despite minimal sedation. The patient is of pressors and being treated for pneumonia currently. From our standpoint, there is no evidence of recurrent GI bleeding, having stable hemodynamic status, and stable hemoglobin. as discussed previously, her prognosis is guarded secondary to massive multifocal hepatocellular carcinoma, aggravated by a possible permanent neurological damage. Will sign off for now, please let us know if there is any change in her status regarding recurrent GI bleeding. Subjective Date/time seen: 02/05/25 12:23 Objective Data Vital Signs Vital Signs: Vital Signs - 24 hr 02/04/25 13:30 02/04/25 14:00 02/04/25 14:00 Temperature 99.5 F Pulse Rate 57 L 51 L 57 L Respiratory Rate 24 H 23 H Blood Pressure 104/70 Pulse Oximetry 97 Oxygen Delivery Fraction of Inspired Oxygen 02/04/25 14:30 02/04/25 14:52 02/04/25 14:58 Temperature Pulse Rate 54 L 52 L 54 L Respiratory Rate 30 H 26 H Blood Pressure Pulse Oximetry 96 Oxygen Delivery Mechanical Ventilation Fraction of Inspired Oxygen 45 02/04/25 14:58 02/04/25 16:00 02/04/25 16:00 Temperature 99.3 F Pulse Rate 54 L 59 L 59 L Respiratory Rate 26 H 25 H 25 H Blood Pressure 98/60 L Pulse Oximetry 96 96 Oxygen Delivery Mechanical Ventilation Fraction of Inspired Oxygen 45 02/04/25 16:00 02/04/25 16:00 02/04/25 17:00 Temperature Pulse Rate 59 L 57 L Respiratory Rate 24 H Blood Pressure Pulse Oximetry Oxygen Delivery Fraction of Inspired Oxygen 45 02/04/25 18:00 02/04/25 18:00 02/04/25 18:00 Temperature 99.1 F Pulse Rate 53 L 58 L 52 L Respiratory Rate 24 H Blood Pressure 92/67 L Pulse Oximetry 97 96 Oxygen Delivery Mechanical Ventilation Fraction of Inspired Oxygen 45 02/04/25 18:04 02/04/25 18:04 02/04/25 19:46 Temperature Pulse Rate 53 L 53 L 51 L Respiratory Rate 23 H 23 H 22 H Blood Pressure Pulse Oximetry 98 Oxygen Delivery Mechanical Ventilation Fraction of Inspired Oxygen 45 02/04/25 19:51 02/04/25 20:00 02/04/25 20:00 Temperature Pulse Rate 49 L 48 L Respiratory Rate 23 H Blood Pressure Pulse Oximetry Oxygen Delivery Fraction of Inspired Oxygen 45 02/04/25 20:04 02/04/25 20:05 02/04/25 20:13 Temperature Pulse Rate 49 L 48 L 51 L Respiratory Rate 22 H 23 H Blood Pressure Pulse Oximetry 97 Oxygen Delivery Mechanical Ventilation Fraction of Inspired Oxygen 45 02/04/25 20:28 02/04/25 20:39 02/04/25 20:39 Temperature Pulse Rate 58 L 59 L 59 L Respiratory Rate 28 H 25 H 29 H Blood Pressure Pulse Oximetry Oxygen Delivery Fraction of Inspired Oxygen 02/04/25 21:21 02/04/25 21:25 02/04/25 21:45 Temperature Pulse Rate 73 60 62 Respiratory Rate 18 20 Blood Pressure Pulse Oximetry 95 Oxygen Delivery Mechanical Ventilation Fraction of Inspired Oxygen 65 02/04/25 22:00 02/04/25 22:00 02/04/25 22:00 Temperature 99 F Pulse Rate 54 L 54 L 54 L Respiratory Rate 23 H 18 Blood Pressure 77/44 L Pulse Oximetry 94 Oxygen Delivery Fraction of Inspired Oxygen 02/04/25 22:00 02/04/25 22:15 02/04/25 22:30 Temperature 99 F Pulse Rate 60 53 L 65 Respiratory Rate 22 H 23 H Blood Pressure 74/54 L 82/50 L Pulse Oximetry 95 Oxygen Delivery Fraction of Inspired Oxygen 02/04/25 22:31 02/04/25 22:31 02/04/25 22:45 Temperature 99 F Pulse Rate 57 L 56 L 55 L Respiratory Rate 23 H Blood Pressure 128/69 128/69 123/65 Pulse Oximetry 99 Oxygen Delivery Fraction of Inspired Oxygen 02/04/25 22:45 02/04/25 22:47 02/04/25 23:00 Temperature 99 F 99 F Pulse Rate 55 L 76 53 L Respiratory Rate 22 H 22 H Blood Pressure 123/65 91/52 L Pulse Oximetry 99 97 96 Oxygen Delivery Mechanical Ventilation Fraction of Inspired Oxygen 65 02/04/25 23:15 02/04/25 23:15 02/04/25 23:15 Temperature 99 F Pulse Rate 49 L 50 L 50 L Respiratory Rate 22 H 21 H Blood Pressure 85/51 L 85/51 L Pulse Oximetry 96 Oxygen Delivery Fraction of Inspired Oxygen 02/04/25 23:31 02/04/25 23:32 02/04/25 23:40 Temperature 99 F Pulse Rate 50 L 50 L Respiratory Rate 21 H 21 H Blood Pressure 95/60 L Pulse Oximetry 97 97 Oxygen Delivery Mechanical Ventilation Fraction of Inspired Oxygen 65 65 02/04/25 23:45 02/04/25 23:45 02/04/25 23:50 Temperature 99 F Pulse Rate 49 L 54 L 52 L Respiratory Rate 21 H 22 H Blood Pressure 130/73 130/73 Pulse Oximetry 99 Oxygen Delivery Fraction of Inspired Oxygen 02/04/25 23:50 02/05/25 00:00 02/05/25 00:00 Temperature 99.1 F Pulse Rate 51 L 52 L 52 L Respiratory Rate 22 H 20 20 Blood Pressure 131/77 Pulse Oximetry 99 Oxygen Delivery Fraction of Inspired Oxygen 02/05/25 00:00 02/05/25 00:00 02/05/25 00:00 Temperature Pulse Rate 52 L 51 L 53 L Respiratory Rate 20 Blood Pressure 131/77 Pulse Oximetry Oxygen Delivery Fraction of Inspired Oxygen 02/05/25 00:15 02/05/25 00:20 02/05/25 01:00 Temperature 99.2 F 99.2 F Pulse Rate 49 L 55 L 48 L Respiratory Rate 22 H 25 H 21 H Blood Pressure 94/59 L 99/64 L Pulse Oximetry 98 99 Oxygen Delivery Fraction of Inspired Oxygen 02/05/25 01:31 02/05/25 01:36 02/05/25 01:38 Temperature Pulse Rate 47 L 48 L 49 L Respiratory Rate 21 H 22 H Blood Pressure Pulse Oximetry 99 Oxygen Delivery Mechanical Ventilation Fraction of Inspired Oxygen 55 02/05/25 02:00 02/05/25 02:00 02/05/25 02:00 Temperature 98.9 F Pulse Rate 58 L 56 L 56 L Respiratory Rate 24 H 24 H Blood Pressure 103/60 Pulse Oximetry 97 Oxygen Delivery Fraction of Inspired Oxygen 02/05/25 02:00 02/05/25 02:00 02/05/25 03:00 Temperature 98.7 F Pulse Rate 56 L 56 L 54 L Respiratory Rate 24 H 24 H Blood Pressure 103/60 103/63 Pulse Oximetry 97 Oxygen Delivery Fraction of Inspired Oxygen 02/05/25 03:15 02/05/25 03:22 02/05/25 03:22 Temperature Pulse Rate 55 L 56 L 56 L Respiratory Rate 30 H 28 H 31 H Blood Pressure Pulse Oximetry Oxygen Delivery Fraction of Inspired Oxygen 02/05/25 04:00 02/05/25 04:00 02/05/25 04:00 Temperature Pulse Rate 53 L 53 L 53 L Respiratory Rate 23 H 23 H Blood Pressure 116/73 Pulse Oximetry Oxygen Delivery Fraction of Inspired Oxygen 02/05/25 04:00 02/05/25 04:00 02/05/25 04:00 Temperature 98.7 F Pulse Rate 53 L 53 L Respiratory Rate 23 H Blood Pressure 116/73 Pulse Oximetry 98 Oxygen Delivery Fraction of Inspired Oxygen 55 02/05/25 04:25 02/05/25 04:56 02/05/25 05:00 Temperature 98.7 F Pulse Rate 53 L 49 L 50 L Respiratory Rate 23 H 21 H Blood Pressure 94/61 L Pulse Oximetry 97 96 96 Oxygen Delivery Mechanical Ventilation Mechanical Ventilation Fraction of Inspired Oxygen 55 55 02/05/25 05:10 02/05/25 06:00 02/05/25 06:00 Temperature 98.8 F Pulse Rate 47 L 50 L 50 L Respiratory Rate 23 H 25 H Blood Pressure 104/65 Pulse Oximetry 96 Oxygen Delivery Fraction of Inspired Oxygen 02/05/25 06:00 02/05/25 06:00 02/05/25 06:00 Temperature Pulse Rate 50 L 50 L 50 L Respiratory Rate 25 H 26 H Blood Pressure 104/65 Pulse Oximetry Oxygen Delivery Fraction of Inspired Oxygen 02/05/25 06:20 02/05/25 06:20 02/05/25 07:00 Temperature 98.9 F Pulse Rate 50 L 50 L 46 L Respiratory Rate 26 H 26 H 23 H Blood Pressure 93/60 L Pulse Oximetry 97 Oxygen Delivery Fraction of Inspired Oxygen 02/05/25 07:20 02/05/25 07:35 02/05/25 07:58 Temperature Pulse Rate 45 L 46 L Respiratory Rate 24 H Blood Pressure 99/63 L Pulse Oximetry Oxygen Delivery Fraction of Inspired Oxygen 55 02/05/25 07:59 02/05/25 08:00 02/05/25 08:32 Temperature 99.0 F Pulse Rate 46 L 46 L 47 L Respiratory Rate 24 H 22 H 25 H Blood Pressure 93/59 L Pulse Oximetry 98 Oxygen Delivery Fraction of Inspired Oxygen 02/05/25 08:36 02/05/25 09:01 02/05/25 09:01 Temperature Pulse Rate 47 L 57 L 57 L Respiratory Rate 26 H 26 H Blood Pressure Pulse Oximetry 99 Oxygen Delivery Mechanical Ventilation Fraction of Inspired Oxygen 55 02/05/25 10:27 02/05/25 10:45 02/05/25 10:47 Temperature 98.4 F 98.3 F Pulse Rate 55 L 53 L 53 L Respiratory Rate 30 H 24 H Blood Pressure 105/65 123/75 Pulse Oximetry 86 L 94 95 Oxygen Delivery Mechanical Ventilation Fraction of Inspired Oxygen 50 Intake/Output Intake/Output: Intake & Output 02/02/25 02/03/25 02/04/25 02/05/25 23:59 23:59 23:59 23:59 Intake Total 2284.5 2627.0 3305.6 626.1 Output Total 701 738 7093 275 Balance 1584.5 1702.0 2205.6 351.1 Meds/Results Medications: Active Medications Generic Name Dose Route Start Last Admin Trade Name Freq PRN Reason Stop Dose Admin Acetaminophen 650 mg 02/01/25 14:06 02/01/25 15:42 Acetaminophen 650 Mg Suppository RECTAL 650 mg Q6H PRN Administration Mild Pain (1-3) or Fever Acetylcysteine 200 mg 02/01/25 14:00 02/05/25 08:31 Acetylcysteine 20% Inhal Soln 800 Mg/4 Ml Vial INHALATION 200 mg Q6HRT TATYANA Administration Albuterol/Ipratropium 3 ml 01/30/25 14:00 02/05/25 08:31 Ipratropium 0.5 Mg/Albuterol Sulfate 2.5 Mg Ampul.Neb 3 Ml INHALATION 3 ml Q6HRT TATYANA Administration Alteplase, Recombinant 2 mg 02/02/25 10:10 Alteplase 2 Mg Vial (Cathflo) IV PUSH ONCE PRN Line Occlusion Dextrose 12.5 gm 02/02/25 10:13 Dextrose 50% 25 Gm/50 Ml Syringe IV PUSH PRN PRN Hypoglycemia Protocol Glucagon 1 mg 02/02/25 10:13 Glucagon For Inj 1 Mg Vial IM PRN PRN Hypoglycemia Protocol Glucose 15 gm 02/02/25 10:13 Glucose Oral Gel 15 Gm Of Glucse In 37.5 Gm Tube PO PRN PRN Hypoglycemia Protocol Dexmedetomidine HCl 400 mcg in 100 mls @ 33 mls/hr 01/30/25 10:30 02/05/25 09:01 Precedex 400 Mcg/100 Ml IV CONT 0.8 mcg/kg/hr .Q3H2M TATYANA 33 mls/hr Administration Protocol 0.8 MCG/KG/HR Cefepime HCl 2 gm/ Sodium 50 mls @ 100 mls/hr 02/02/25 08:00 02/05/25 05:40 Chloride IVPB Infused Q8HR TATYANA Infusion Multivitamins 1.25 ml/ 1,002.5 mls @ 50 mls/hr 02/02/25 14:00 02/04/25 14:40 Multivitamins 1.25 ml/ Amino IV CONT 40 mls/hr Acids/Dextrose .Q20H3M TATYANA Administration Protocol Dextrose 1,000 mls @ 50 mls/hr 02/02/25 10:12 Dextrose 10% IV CONT .Q20H PRN if PN is interrupted Fat Emulsion Intravenous 250 mls @ 20.833 mls/hr 02/02/25 14:00 02/05/25 02:45 Lipids 20% IVPB Infused Q24H TATYANA Infusion Dextrose 1,000 mls @ 100 mls/hr 02/02/25 10:13 Dextrose 5% 1,000 Ml IVPB PRN PRN Hypoglycemia Protocol Vancomycin HCl 1,500 mg in 500 mls @ 250 mls/hr 02/04/25 03:00 02/04/25 22:40 Vancomycin 1,500 Mg/Ns 500 Ml IVPB Infused Q18H TATYANA Infusion Midazolam HCl 100 mg in 100 mls @ 0 mls/hr 02/04/25 21:25 02/05/25 07:35 Versed 100 Mg/Ns 100 Ml IV CONT 0 mg/hr .Q0M TATYANA 0 mls/hr Titration Protocol Norepinephrine Bitartrate 8 mg in 250 mls @ 1.875 mls/hr 02/04/25 22:15 02/05/25 07:58 Levophed 8 Mg/D5w 250 Ml IV CONT 1 mcg/min .Q24H TATYANA 1.88 mls/hr Titration Protocol 1 MCG/MIN Insulin Aspart 2 - 5 units 02/02/25 12:00 08/14/25 06:08 Insulin Aspart (*Bkc) 100 Units/Ml SUB-Q Not Given Q6HR [facility] Protocol Multi-Ingred Cream/Lotion/Oil/Oint 1 applic 01/28/25 09:15 02/05/25 09:02 Mineral Oil/White Petrolatum Ointment EACH EYE 1 applic Q12HR TATYANA Administration Ondansetron HCl 4 mg 01/28/25 01:51 Ondansetron Inj 4 Mg/2 Ml Vial IV PUSH Q4H PRN Nausea Pantoprazole Sodium 40 mg 02/05/25 09:00 02/05/25 09:02 Pantoprazole Sodium Iv 40 Mg Vial IV PUSH 40 mg QAM TATYANA Administration Sodium Chloride 10 ml 01/28/25 14:00 02/05/25 05:11 Central Line Flush IV PUSH 10 ml Q8HR TATYANA Administration Sodium Chloride 20 ml 01/28/25 06:37 Central Line Flush IV PUSH PRN PRN after blood draws Radiology Results: ITS Impressions Abdomen/Pelvis CTA 01/28/25 00:08 IMPRESSION: Findings within the liver for which malignancy is suspected. Additional findings within the rectum for which acute hemorrhage is suspected (likely secondary to anorectal varices). No findings to suggest upper GI bleeding. 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 Incidental notation is made of cholelithiasis. Abdomen X-Ray 01/28/25 13:57 IMPRESSION: 1. Nasogastric tube in stomach. Head CT 02/02/25 13:34 IMPRESSION: 1. No acute intracranial process. 2. Stable age-related changes including mild diffuse volume loss and mild scattered white matter hypoattenuation consistent with chronic small vessel ischemic disease. Chest X-Ray 02/05/25 06:22 Impression: 1: Stable diffuse bilateral airspace consolidation which may represent pneumonia and/or edema. Chest/Abdomen/Pelvis CT 02/05/25 10:13 IMPRESSION: 1. Tiny left-sided pleural effusion. Small right-sided pleural effusion. 2. Moderate to large groundglass and patchy opacities scattered throughout both lungs. Differential is broad and includes but is not limited to edema or pneumonia. Recommend follow-up to resolution. 3. Moderate-sized consolidations in the lower lobes, larger on the right, with air bronchograms. Recommend follow-up to resolution. 4.The liver is heterogeneous. Micronodular appearance to the surface of the liver. There is a 2.4 cm low-density lesion in the posterior segment of the right lobe of the liver. A liver mass MRI is recommended. Evaluation of the liver is significantly limited due to artifact. 5. Moderate amount of nonspecific fat stranding and ascites scattered throughout the abdomen and pelvis. 6. Cholelithiasis. Labs Labs: Laboratory Results - last 24 hr 02/04/25 02/04/25 02/05/25 17:41 23:04 05:07 WBC 15.8 H RBC 2.90 L Hgb 10.0 L Hct 31.3 L MCV 107.9 H MCH 34.5 H MCHC 31.9 L RDW 22.7 H Plt Count 132 L MPV 10.8 H Immature Gran % (Auto) 1.7 H Neut % (Auto) 83.0 H Lymph % (Auto) 7.7 L [place] % (Auto) 4.9 Eos % (Auto) 2.1 Baso % (Auto) 0.6 Lymph # (Auto) 1.21 [place] # (Auto) 0.8 H Eos # (Auto) 0.3 Baso # (Auto) 0.1 Abs Immat Gran (auto) 0.27 H Absolute Neuts (auto) 13.1 H Absolute Nucleated RBC 0.020 H Band Neutrophils % Not Reportable Nucleated RBC % 0.1 Platelet Estimate Slightly decreased Polychromasia 1+ Hypochromasia 1+ Anisocytosis 2+ Schistocytes None seen PT 19.3 H INR 1.6 APTT 30.0 Puncture Site ABG pH ABG pCO2 ABG pO2 ABG PO2/FiO2 Ratio ABG HCO3 ABG O2 Saturation ABG O2 Content ABG Base Excess A-a Gradient Oxyhemoglobin Carboxyhemoglobin Methemoglobin Reduced Hemoglobin Total Hemoglobin O2 Delivery Device O2 Liters/Min Minute Volume Vent Rate Vent Mode FiO2 Tidal Volume PEEP Peak Inspir Pressure Pressure Support Sodium 143 Potassium 3.5 Chloride 116 H Carbon Dioxide 20 L Anion Gap 7 BUN 44 H Creatinine 1.02 H Estim Creat Clear Calc 82 Estimated GFR 55 L Glucose 171 H POC Capillary Glucose 186 H 161 H Lactic Acid 1.7 Calcium 9.2 Phosphorus 2.7 Magnesium 1.8 Total Bilirubin 4.2 H AST 151 H ALT 47 H Alkaline Phosphatase 71 Ammonia 11 Total Protein 6.3 Albumin 2.9 L Triglycerides 139 08/14/25 08/14/25 05:25 11:19 WBC RBC Hgb Hct MCV MCH MCHC RDW Plt Count MPV Immature Gran % (Auto) Neut % (Auto) Lymph % (Auto) [place] % (Auto) Eos % (Auto) Baso % (Auto) Lymph # (Auto) [place] # (Auto) Eos # (Auto) Baso # (Auto) Abs Immat Gran (auto) Absolute Neuts (auto) Absolute Nucleated RBC Band Neutrophils % Nucleated RBC % Platelet Estimate Polychromasia Hypochromasia Anisocytosis Schistocytes PT INR APTT Puncture Site Right radial ABG pH 7.424 ABG pCO2 31.5 L ABG pO2 61.4 L ABG PO2/FiO2 Ratio 1.12 ABG HCO3 20.2 L ABG O2 Saturation 92.4 L ABG O2 Content 14.2 L ABG Base Excess -3.4 A-a Gradient 295.7 Oxyhemoglobin 90.8 Carboxyhemoglobin 0.8 Methemoglobin 0.1 Reduced Hemoglobin 8.3 H Total Hemoglobin 11.1 L O2 Delivery Device Ventilator O2 Liters/Min Not Reportable Minute Volume Not Reportable Vent Rate 16 Vent Mode Cmv FiO2 55 Tidal Volume 400 PEEP 8 Peak Inspir Pressure Not Reportable Pressure Support Not Reportable Sodium Potassium Chloride Carbon Dioxide Anion Gap BUN Creatinine Estim Creat Clear Calc Estimated GFR Glucose POC Capillary Glucose 154 H Lactic Acid Calcium Phosphorus Magnesium Total Bilirubin AST ALT Alkaline Phosphatase Ammonia Total Protein Albumin Triglycerides
[2025-02-05] MEDS: dexmedeTOMIDine 400 MCG/100 ML 400 MCG/100 ML BAG 24.75 MCG IV CONT ×3 (13:51→21:39)
[2025-02-05] MEDS: MEROPENEM 1 GM in SODIUM CHLORIDE 0.9% IV 100 ML 200 ML IVPB ×2 (16:12→22:25)
[2025-02-05] MEDS: AMINO ACIDS 5%/DEXTROSE 15% 1,000 ML with MULTIVITAMINS-12 INJ VIAL 1 1.25 ML, MULTIVIT... 50 ML IV CONT (16:13)
[2025-02-05] MEDS: FAT EMULSIONS IV 20% 250 ML 20.8 ML IVPB (16:13)
[2025-02-05] MEDS: VANCOMYCIN 1,500 MG/NS 500 ML 1,500 MG/500 ML BAG 250 MG IVPB (20:26)
[2025-02-05] MEDS: MIDAZOLAM 100MG/NS 100ML(*CRX) 100 MG/100 ML BAG IV CONT (20:32)
[2025-02-05] MEDS: METOCLOPRAMIDE HCL INJ 10 MG/2 ML VIAL IV PUSH (22:11)
[2025-02-06] VITALS (43 sets, daily range): BP systolic 66–140; BP diastolic 39–76; PULSE 48–69; RESP 17–35; TEMP 36.8–37.6; O2SAT 92–100
[2025-02-06] MEDS: ACETYLCYSTEINE 20% INHAL SOLN 800 MG/4 ML VIAL 200 MG INHALATION ×4 (02:00→20:58)
[2025-02-06] MEDS: dexmedeTOMIDine 400 MCG/100 ML 400 MCG/100 ML BAG 20.63 MCG IV CONT ×2 (02:00→06:52)
[2025-02-06] MEDS: IPRATROPIUM 0.5 MG/ALBUTEROL SULFATE 2.5 MG AMPUL.NEB 3 ML INHALATION ×4 (02:00→20:58)
[2025-02-06] MEDS: MEROPENEM 1 GM in SODIUM CHLORIDE 0.9% IV 100 ML 200 ML IVPB ×3 (05:03→21:22)
[2025-02-06] MEDS: CENTRAL LINE FLUSH 10 ML IV PUSH ×3 (05:05→21:25)
[2025-02-06 05:16] LABS: INR 1.7; Partial Thromboplastin Time 30.8 Seconds (22.3-36.8); Prothrombin Time 19.8 Seconds (11.1-14.7)
[2025-02-06 05:22] LABS: Hematocrit 31.8 % (37.0-47.0); Hemoglobin 10.5 g/dL (12.0-15.0); Mean Corpuscular Hemoglobin 34.8 pg (26-34); Mean Corpuscular Volume 105.3 fl (80-100); Red Blood Count 3.02 M/mm3 (4.2-5.4); White Blood Count 17.4 K/mm3 (4.5-10.0)
[2025-02-06 05:23] LABS: Immature Granulocyte Percent A 2.4 % (0-0.5); Mean Corpuscular HGB Conc 33.0 g/dl (32-36); Nucleated Red Blood Cells Perc 0.2 % (0.0-0.2); Platelet Count Result 125 k/mm3 (150-375)
[2025-02-06 05:24] LABS: Lymphocytes Absolute Auto 1.17 K/mm3 (0.9-3.2); Nucleated Red Blood Cells Absolute Auto 0.030 K/mm3 (0.0-0.012)
[2025-02-06 05:26] LABS: Band Neutrophils Percent 0 % (0-6); Burr Cells 1+; Hypochromasia 1+; Schistocytes None Seen; Target Cells 1+
[2025-02-06 05:39] LABS: Ammonia < 9 umol/L (9-30)
[2025-02-06 06:31] LABS: Alveolar/Arterial O2 Gradient 268.7 mmHg; Carboxyhemoglobin 0.8 % THb (0-2.0); Fractional Inspired Oxygen 50 %; HCO3 ABG 16.7 mEq/l (22.0-26.0); Methemoglobin ABG 0.3 %THb (0-1.5); Oxygen Content ABG 14.8 %vol (16.0-22.0); Oxygen Saturation ABG 89.5 % (95.0-100.0); PCO2 ABG 28.2 mmHg (35.0-45.0); PO2 ABG 56.1 mmHg (80.0-100.0); PO2 FiO2 Ratio Arterial Blood 1.12 %; Reduced Hemoglobin 11.7 %THb (0-5.0)
[2025-02-06 06:34] LABS: Modified Allen's Test Pass; Site Drawn LEFT RADIAL
[2025-02-06 06:35] LABS: Arterial Blood Gas Tidal Volume 400 ml; Arterial Blood Gas Ventilator rate 16 /MIN
[2025-02-06] MEDS: MINERAL OIL/WHITE PETROLATUM OINTMENT 1 APPLIC EACH EYE ×2 (08:13→21:25)
[2025-02-06] MEDS: PANTOPRAZOLE SODIUM IV 40 MG VIAL IV PUSH (08:13)
[2025-02-06 08:56] LABS: Alanine Aminotransferase 48 U/L (6-35); Albumin Level 3.1 g/dL (3.5-5.1); Alkaline Phosphatase 86 U/L (38-126); Anion Gap 10 mmol/L (4-12); Aspartate Amino Transferase 152 U/L (14-36); Bilirubin,Total 4.6 mg/dL (0.2-1.3); Blood Urea Nitrogen 47 mg/dL (7-17); Calcium 9.4 mg/dL (8.4-10.2); Carbon Dioxide 17 mmol/L (22-30); Chloride 115 mmol/L (98-107); Estimated CRCL calculation 76 ml/min; Estimated Glomerular Filt Rate 47; Glucose 164 mg/dL (65-110); Magnesium 1.7 mg/dL (1.6-2.3); Potassium 3.6 mmol/L (3.4-5.0); Sodium 142 mmol/L (137-145); Total Protein 6.7 g/dL (6.3-8.2)
--- NOTE | 2025-02-06 11:22 | PCNFU ---
Nutrition Follow-Up Complete: Suboptimal Energy Intake as related to mechanical intubation as evidenced by NPO. Goal: Meet estimated nutritional needs Patient will continue current goal. Pt current nutrition is TPN at 50 ml/hr. Nutrition recommendation: Vital AF 1.2 at 10-20 ml/hr if GI agrees with trickle feeding. Last recorded weight is 172.6 kg, up from 155.1 kg on admit. Bowel Motility: Last reported BM 01/31 Labs Reviewed:Glu 166, BUN 47,Alb 3.2 Meds Noted:Clinimix 5/15 at 50 ml/hr, 250 ml of 20% Lipid Emulsion, Levophed Skin: WNL Additional Notes: Patient remains on a mechanical vent. TPN remains at 50 ml/hr providing 1352 kcal/60 gm protein. Discussions in ICU rounds today regarding tubefeeding. Auto Driver to speak with GI regarding nutrition. Will monitor weight, labs, skin, diet orders, meds every Sunday and Sunday.
[2025-02-06] MEDS: dexmedeTOMIDine 400 MCG/100 ML 400 MCG/100 ML BAG 16.5 MCG IV CONT ×2 (12:05→19:15)
[2025-02-06] MEDS: AMINO ACIDS 5%/DEXTROSE 15% 1,000 ML with MULTIVITAMINS-12 INJ VIAL 1 1.25 ML, MULTIVIT... 50 ML IV CONT (12:06)
--- NOTE | 2025-02-06 12:50 | WPDINTPN ---
Progress Note: A&P Assessment and Plan (1) Encephalopathy: Qualifiers: Encephalopathy type: metabolic Qualified Code(s): G93.41 - Metabolic encephalopathy Code(s): G93.40 - Encephalopathy, unspecified Status: Acute Assessment and Plan: Multifactorial, initially thought to be secondary to hyperammonemia, liver dysfunction,, shock -patient did receive lactulose enema on 01/31/2025, good bowel movements x2 Ammonia levels have normalized Continue to monitor -anisocoria, CT scan of the brain 01/28/2025 with no significant abnormality seen -continues to be encephalopathic -02/02/2025, repeat CT scan of the brain with no acute intracranial process, chronic small vessel ischemic disease -appreciate Neurology evaluation, -02/04: EEG: Abnormal record due to the absence of the normal background rhythm and due to the presence of bihemispheric slow activity. These findings are suggestive of organic or metabolic encephalopathy or postictal state. Clinical correlation recommended. This tracing is not compatible with electrocerebral silence. 02/04: Patient did open her eyes and tracked, followed commands with lower extremities 02/05: required increasing sedation overnight due to hypoxia and worsening chest x-ray (2) Airway compromise: Code(s): J98.8 - Other specified respiratory disorders Status: Acute Assessment and Plan: Patient encephalopathic with elevated ammonia level, not protecting her airway, also intubated for aspiration prevention and for EGD -01/28: Intubated patient for airway protection due to encephalopathy -currently on CMV mode of ventilation, -chest x-ray and ABGs reviewed, maintain O2 sats > 92%, ventilator adjusted, increase PEEP to 10 and 60% FiO2 -sedated with Precedex infusion, will have bedside RN wean Precedex and try to wake up patient. When she is more awake will place her on SBT and evaluate for extubation 02/01: Patient continues to have thick ETT secretions, added Pulmozyme and Mucomyst nebulizer 02/02: Patient spiked fevers, continues to have thick ETT secretions, borderline blood pressure, started patient on cefepime and vancomycin (02/02) 02/02: Blood cultures: No growth x2 02/02: Sputum culture: ESBL E coli 02/04: Lasix 40 mg IV x1 -02/05: Switch cefepime to meropenem (02/05) -CT scan of the chest abdomen and pelvis: IMPRESSION: 1. Tiny left-sided pleural effusion. Small right-sided pleural effusion. 2. Moderate to large ground glass and patchy opacities scattered throughout both lungs. Differential is broad and includes but is not limited to edema or pneumonia. Recommend follow-up to resolution. 3. Moderate-sized consolidations in the lower lobes, larger on the right, with air bronchograms. Recommend follow-up to resolution. 4.The liver is heterogeneous. Micronodular appearance to the surface of the liver. There is a 2.4 cm low-density lesion in the posterior segment of the right lobe of the liver. A liver mass MRI is recommended. Evaluation of the liver is significantly limited due to artifact. 5. Moderate amount of nonspecific fat stranding and ascites scattered throughout the abdomen and pelvis. 6. Cholelithiasis. (3) Pneumonia: Code(s): J18.9 - Pneumonia, unspecified organism Status: Acute Assessment and Plan: 02/02: Chest x-ray with worsening infiltrates, thick cream to yellow colored secretion -sputum cultures as above -continue antibiotics as above (4) Hemorrhagic shock: Code(s): R57.8 - Other shock Status: Acute Assessment and Plan: RESOLVED Pt presented with rectal bleed, CT showed esophageal and rectal varices. -Transfused 2 units unmatched PRBC in the ER -hemoglobin this morning is 9.3, platelets 186 -01/28: INR 1.6, will give vitamin K -01/28: Transfused 1 unit of FFP and 1 unit of packed RBC -01/30: 1 unit of FFP and 1 unit of packed RBCs were transfused 02/05: Hypoxia, hypotension, Levophed was restarted,, maintain MAP > 65 mm Hg at all times for adequate end organ perfusion, continue antibiotics as above -01/29: Hb 7.3, INR 1.8 this morning. Transfused 1 unit of FFP and 1 unit of packed RBC, will also repeat vitamin K IVPB -01/30: Hemoglobin remained stable, decreased NG output. Discussed with GI, will continue octreotide. Discontinued Protonix infusion and IV Protonix -01/31: Hemoglobin is 9.7 this morning and stable, NG was removed 01/30 with EGD. Will continue octreotide per GI -02/01: Hemoglobin 10.1 this morning in stable, patient remains on octreotide infusion -04/04: Hemoglobin 10.4 and stable, patient remains on octreotide infusion per GI -02/03: Hemoglobin remained stable at 9.0 -02/04: Hemoglobin 9.5 and stable 01/28: CTA scan of the abdomen and pelvis: Findings within the liver for which malignancy is suspected. Additional findings within the rectum for which acute hemorrhage is suspected (likely secondary to anorectal varices). No findings to suggest upper GI bleeding. 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 Incidental notation is made of cholelithiasis. (5) Esophageal varices: Qualifiers: Esophageal varices bleeding: with bleeding Esophageal varices type: unspecified type Qualified Code(s): I85.01 - Esophageal varices with bleeding Code(s): I85.00 - Esophageal varices without bleeding Status: Acute Assessment and Plan: Esophageal varices as seen on CTA abdomen and pelvis. -appreciate GI evaluation -01/28: EGD: Showed actively bleeding gastric varix at the gastric cardia, a band ligation device was used to place 1 band, moderate gastritis was seen in the stomach. The gastric has a moderate portal hypertensive change. Large amount of blood was seen in the distal esophagus and the stomach the bowel and the 2nd portion of duodenum was normal with no ulcers or masses 01/30: Repeat EGD: Showed medium grade 3 varices (large varices almost occluding the esophageal lumen were present in the distal esophagus. There was no evidence of bleeding bleeding corresponding to the previous band. To more bands were placed. There was a large fundal pool of blood in the stomach. The bulb and the 2nd portion of duodenum was normal Appreciate GI following the patient, discussed with GI, -OFF octreotide infusion (6) Rectal varices: Code(s): K64.9 - Unspecified hemorrhoids Status: Acute Assessment and Plan: Likely related to alcoholic cirrhosis, (7) Alcoholic cirrhosis of liver with ascites: Code(s): K70.31 - Alcoholic cirrhosis of liver with ascites Status: Acute Assessment and Plan: History of alcoholic cirrhosis -LFTs and bilirubin elevated but stable -could be related to shock liver, cirrhosis, bleeding -status post ceftriaxone (01/28) for SBP prophylaxis -continue to monitor LFTs and bilirubin -INR elevated, status post vitamin K and FFP, INR is stable -continue to monitor -02/04: INR 1.7, vitamin K 10 mg IV piggyback x1 (8) Acute kidney injury: Code(s): N17.9 - Acute kidney failure, unspecified Status: Acute Assessment and Plan: Acute kidney injury, likely related to hemorrhagic shock -low urine output, creatinine and BUN normal -maintain adequate MAP and SBP -continue to monitor urine output, renal function electrolytes -creatinine remains normal (9) Abnormal CT of liver: Code(s): R93.2 - Abnormal findings on diagnostic imaging of liver and biliary tract Status: Acute Assessment and Plan: CT abdomen and pelvis as above: Suspicious for malignancy -AFP significantly elevated to 83,546 (0.0-9.2) -GI is following the patient: Recommended may need MRI liver protocol when more stable and extubated (10) Septic shock: Code(s): A41.9 - Sepsis, unspecified organism; R65.21 - Severe sepsis with septic shock Status: Acute Assessment and Plan: Patient with ESBL E coli pneumonia on sputum culture -low blood pressures likely related to sepsis/shock -restarted on Levophed,, maintain MAP > 65 mmHg or SBP > 100 mmHg at all times for adequate end organ perfusion -antibiotics as above Plan DVT prophylaxis: SCDs, no chemoprophylaxis due to hemorrhagic shock and GI bleed Stress ulcer prophylaxis: Protonix IV daily Nutrition: TPN started on 02/02, will discuss with GI regarding possibility of NG tube placement and starting and trach feeds Code Status: DNR Critical Care Time Spent: 34 minutes 02/01: Discussed at length with patient's sister Jinny, she wants to be the decision maker, amanda Cooper from care coordination discussed with Jinny and patient's daughter Modesta. Modesta agreed the Jinny to be the surrogate decision maker. They also agree to make her a do not resuscitate, orders for DNR when placed in the chart. I answered all the questions 01/31: Discussed with Modesta Stearns, patient's daughter at [phone], updated the daughter with patient's condition from the time she came to the hospital until today. She is aware that patient is not waking up despite being off sedation likely related to hepatic encephalopathy. I updated her with the repeat EGD that was done yesterday and that the patient has received multiple blood products. I also discussed with her code status to which the daughter stated she wanted her to be a full code. She did not have any other questions. 01/30: Discussed with Jinny Cabezas, patient's sister and updated her with patient's condition and plan of care. She stated that the patient has a daughter with anemia of Modesta Stearns, she was supposed to contact the daughter and I asked to give me a call. Will try to locate daughter's number and will give her a call and explain to her patient's condition/situation and recommendations of the director of global talent. Due to a high probability of clinically significant, life threatening deterioration, the patient required my highest level of preparedness to intervene emergently and I personally spent this critical care time directly and personally managing the patient. This critical care time included obtaining a history; examining the patient; pulse oximetry; ordering and review of studies; arranging urgent treatment with development of a management plan; evaluation of patient's response to treatment; frequent reassessment; and discussions with other providers. It was exclusive of separately billable procedures and treating other patients and teaching time. Please see Assessment and Plan section and the rest of the note for further information on patient assessment and treatment This dictation may have been done utilizing a voice recognition system. Attempts have been made to correct errors. However, there may be uncorrected grammatical, spelling, and recognitions errors present. Subjective Date/time seen: 02/06/25 12:50 Interval history: Reason for consult: GI bleed, Esophageal and rectal varices, shock, altered mental status, anisocoria, unable to protect her airway, intubated and on mechanical ventilator, hyperkalemia, acute renal failure, elevated LFTs 01/28: EGD: Showed actively bleeding gastric varix at the gastric cardia, a band ligation device was used to place 1 band, moderate gastritis was seen in the stomach. The gastric has a moderate portal hypertensive change. Large amount of blood was seen in the distal esophagus and the stomach the bowel and the 2nd portion of duodenum was normal with no ulcers or masses 01/30: Repeat EGD: Showed medium grade 3 varices (large varices almost occluding the esophageal lumen were present in the distal esophagus. There was no evidence of bleeding bleeding corresponding to the previous band. To more bands were placed. There was a large fundal pool of blood in the stomach. The bulb and the 2nd portion of duodenum was normal 02/06/2025: Patient seen and examined the ICU, remains intubated on CMV mode of ventilation, peep of 10, 55% FiO2. Sedated with Precedex and Versed. Does not open eyes or follow simple commands. Withdraws to pain. Urine output has been low. It to be restarted on norepinephrine Hemoglobin remains stable Review of Systems Review of Systems: ROS unobtainable: Yes unobtainable due to endotracheal tube, unobtainable due to medical condition and unobtainable due to mental status Exam Narrative: General: Patient is intubated and sedated in no acute distress HEENT:? Pupils unequal, R>L, but reactive, sclera is icteric Neck:? supple Respiratory:? Coarse breath sounds bilaterally R > L, decreased at bases, no wheezing noted this more, adequate air Cardiac:? S1 S2 normal, regular rate and rhythm Abdomen:? soft, nontender, non distended, morbidly obese, hypoactive bowel sounds Extremities:?b/l edema of lower extremities, palpable pedal pulses Neuro:? Patient is intubated on Precedex infusion, does not open her eyes or follow simple commands, withdraws to pain in all extremities Skin:? Feet are warm today Psych:? unable to assess Objective Data Vital Signs Vital Signs: Vital Signs - 24 hr 02/05/25 13:51 02/05/25 13:51 02/05/25 13:59 Temperature Pulse Rate 46 L 46 L 51 L Respiratory Rate 26 H 26 H Blood Pressure Pulse Oximetry 96 Oxygen Delivery Mechanical Ventilation Fraction of Inspired Oxygen 50 02/05/25 13:59 02/05/25 14:00 02/05/25 14:00 Temperature 98.1 F Pulse Rate 51 L 52 L 55 L Respiratory Rate 23 H 25 H Blood Pressure 115/74 115/64 Pulse Oximetry 96 Oxygen Delivery Fraction of Inspired Oxygen 02/05/25 14:00 02/05/25 14:00 02/05/25 14:10 Temperature Pulse Rate 50 L 51 L 68 Respiratory Rate 23 H 24 H Blood Pressure Pulse Oximetry Oxygen Delivery Fraction of Inspired Oxygen 02/05/25 16:00 02/05/25 16:00 02/05/25 16:00 Temperature Pulse Rate 53 L 51 L Respiratory Rate 23 H 22 H Blood Pressure Pulse Oximetry 97 Oxygen Delivery Mechanical Ventilation Fraction of Inspired Oxygen 55 55 02/05/25 16:00 02/05/25 16:00 02/05/25 16:00 Temperature Pulse Rate 50 L 51 L 51 L Respiratory Rate 21 H Blood Pressure 100/66 Pulse Oximetry Oxygen Delivery Fraction of Inspired Oxygen 02/05/25 16:15 02/05/25 16:42 02/05/25 17:54 Temperature 97.4 F L Pulse Rate 51 L 50 L 48 L Respiratory Rate 22 H 22 H Blood Pressure 100/66 Pulse Oximetry 96 97 Oxygen Delivery Mechanical Ventilation Fraction of Inspired Oxygen 50 02/05/25 17:57 02/05/25 18:00 02/05/25 18:00 Temperature 97.5 F L Pulse Rate 48 L 48 L 48 L Respiratory Rate 22 H 21 H Blood Pressure 102/65 100/64 Pulse Oximetry 96 Oxygen Delivery Fraction of Inspired Oxygen 02/05/25 18:00 02/05/25 18:00 02/05/25 20:00 Temperature 97.9 F Pulse Rate 48 L 49 L 50 L Respiratory Rate 22 H 25 H Blood Pressure 91/54 L Pulse Oximetry 100 Oxygen Delivery Fraction of Inspired Oxygen 02/05/25 20:00 02/05/25 20:00 02/05/25 20:00 Temperature Pulse Rate 51 L Respiratory Rate Blood Pressure Pulse Oximetry 97 97 Oxygen Delivery Mechanical Ventilation Mechanical Ventilation Fraction of Inspired Oxygen 50 50 50 02/05/25 20:00 02/05/25 20:02 02/05/25 20:02 Temperature Pulse Rate 50 L 50 L 50 L Respiratory Rate 25 H Blood Pressure 91/54 L Pulse Oximetry Oxygen Delivery Fraction of Inspired Oxygen 02/05/25 20:02 02/05/25 20:05 02/05/25 20:19 Temperature Pulse Rate 50 L 51 L 56 L Respiratory Rate 25 H 26 H 26 H Blood Pressure Pulse Oximetry Oxygen Delivery Fraction of Inspired Oxygen 02/05/25 20:32 02/05/25 20:32 02/05/25 21:00 Temperature Pulse Rate 61 61 59 L Respiratory Rate 29 H 29 H Blood Pressure 107/65 Pulse Oximetry Oxygen Delivery Fraction of Inspired Oxygen 02/05/25 21:39 02/05/25 21:39 02/05/25 21:45 Temperature Pulse Rate 57 L 57 L 57 L Respiratory Rate 27 H 27 H Blood Pressure 100/53 L Pulse Oximetry Oxygen Delivery Fraction of Inspired Oxygen 02/05/25 22:00 02/05/25 22:00 02/05/25 22:00 Temperature Pulse Rate 53 L 53 L 53 L Respiratory Rate 27 H 27 H Blood Pressure 97/58 L Pulse Oximetry Oxygen Delivery Fraction of Inspired Oxygen 02/05/25 22:00 02/05/25 22:00 02/05/25 23:00 Temperature 97.9 F Pulse Rate 53 L 53 L 51 L Respiratory Rate 27 H Blood Pressure 97/58 L 97/76 L Pulse Oximetry 94 Oxygen Delivery Fraction of Inspired Oxygen 02/05/25 23:00 02/06/25 00:00 02/06/25 00:00 Temperature 98.3 F Pulse Rate 51 L 49 L Respiratory Rate 27 H Blood Pressure 85/58 L Pulse Oximetry 96 95 Oxygen Delivery Mechanical Ventilation Fraction of Inspired Oxygen 50 50 02/06/25 00:00 02/06/25 00:00 02/06/25 00:00 Temperature Pulse Rate 49 L 49 L Respiratory Rate 27 H Blood Pressure 85/58 L Pulse Oximetry 95 Oxygen Delivery Mechanical Ventilation Fraction of Inspired Oxygen 50 02/06/25 00:00 02/06/25 00:00 02/06/25 00:15 Temperature Pulse Rate 49 L 49 L 49 L Respiratory Rate 27 H 26 H Blood Pressure Pulse Oximetry Oxygen Delivery Fraction of Inspired Oxygen 02/06/25 01:00 02/06/25 02:00 02/06/25 02:00 Temperature Pulse Rate 50 L 53 L 53 L Respiratory Rate 29 H 29 H Blood Pressure 88/59 L Pulse Oximetry Oxygen Delivery Fraction of Inspired Oxygen 02/06/25 02:00 02/06/25 02:00 02/06/25 02:00 Temperature 98.4 F Pulse Rate 53 L 56 L 48 L Respiratory Rate 28 H Blood Pressure 90/61 L 90/61 L Pulse Oximetry 94 95 Oxygen Delivery Mechanical Ventilation Fraction of Inspired Oxygen 50 02/06/25 02:00 02/06/25 02:00 02/06/25 02:03 Temperature Pulse Rate 53 L 53 L 48 L Respiratory Rate 29 H 26 H Blood Pressure Pulse Oximetry Oxygen Delivery Fraction of Inspired Oxygen 02/06/25 02:17 02/06/25 03:15 02/06/25 03:30 Temperature Pulse Rate 52 L 58 L 57 L Respiratory Rate 26 H Blood Pressure 66/39 L 102/54 L Pulse Oximetry Oxygen Delivery Fraction of Inspired Oxygen 02/06/25 03:45 02/06/25 04:00 02/06/25 04:00 Temperature Pulse Rate 59 L 59 L 59 L Respiratory Rate 28 H Blood Pressure 128/76 140/74 Pulse Oximetry Oxygen Delivery Fraction of Inspired Oxygen 02/06/25 04:00 02/06/25 04:00 02/06/25 04:00 Temperature 98.2 F Pulse Rate 50 L 59 L Respiratory Rate 28 H 28 H Blood Pressure 140/74 Pulse Oximetry 97 Oxygen Delivery Fraction of Inspired Oxygen 50 02/06/25 04:00 02/06/25 04:00 02/06/25 05:00 Temperature Pulse Rate 62 59 L Respiratory Rate Blood Pressure 92/57 L Pulse Oximetry 97 Oxygen Delivery Mechanical Ventilation Fraction of Inspired Oxygen 50 02/06/25 06:00 02/06/25 06:00 02/06/25 06:00 Temperature 98.6 F Pulse Rate 51 L 51 L 51 L Respiratory Rate 18 18 Blood Pressure 80/54 L Pulse Oximetry 92 Oxygen Delivery Fraction of Inspired Oxygen 02/06/25 06:00 02/06/25 06:15 02/06/25 06:15 Temperature Pulse Rate 51 L 51 L 51 L Respiratory Rate 18 Blood Pressure 89/61 L Pulse Oximetry 93 Oxygen Delivery Mechanical Ventilation Fraction of Inspired Oxygen 50 02/06/25 06:52 02/06/25 06:52 02/06/25 07:00 Temperature Pulse Rate 49 L 49 L 49 L Respiratory Rate 26 H 26 H Blood Pressure 85/63 L Pulse Oximetry Oxygen Delivery Fraction of Inspired Oxygen 02/06/25 07:12 02/06/25 08:00 02/06/25 08:00 Temperature 98.6 F Pulse Rate 49 L 49 L Respiratory Rate 28 H 28 H Blood Pressure 89/62 L Pulse Oximetry 97 Oxygen Delivery Fraction of Inspired Oxygen 60 02/06/25 08:00 02/06/25 08:00 02/06/25 08:00 Temperature Pulse Rate 49 L 49 L 58 L Respiratory Rate 27 H 27 H Blood Pressure 89/62 L Pulse Oximetry 93 Oxygen Delivery Mechanical Ventilation Fraction of Inspired Oxygen 60 02/06/25 08:00 02/06/25 08:00 02/06/25 08:30 Temperature Pulse Rate 49 L 51 L Respiratory Rate 24 H Blood Pressure Pulse Oximetry Oxygen Delivery Fraction of Inspired Oxygen 60 02/06/25 08:30 02/06/25 08:37 02/06/25 08:40 Temperature Pulse Rate 58 L 51 L 56 L Respiratory Rate 26 H 24 H Blood Pressure Pulse Oximetry 97 Oxygen Delivery Mechanical Ventilation Fraction of Inspired Oxygen 60 02/06/25 09:00 02/06/25 09:15 02/06/25 09:54 Temperature 98.2 F Pulse Rate 58 L 59 L 59 L Respiratory Rate 27 H 26 H Blood Pressure 92/58 L 117/70 Pulse Oximetry 97 Oxygen Delivery Fraction of Inspired Oxygen 02/06/25 10:00 02/06/25 10:00 02/06/25 10:00 Temperature Pulse Rate 65 61 61 Respiratory Rate 26 H Blood Pressure 110/68 Pulse Oximetry Oxygen Delivery Fraction of Inspired Oxygen 02/06/25 10:00 02/06/25 11:11 02/06/25 11:57 Temperature 98.7 F Pulse Rate 61 59 L 59 L Respiratory Rate 26 H 24 H Blood Pressure 108/70 Pulse Oximetry 96 96 Oxygen Delivery Mechanical Ventilation Fraction of Inspired Oxygen 60 02/06/25 12:00 02/06/25 12:00 02/06/25 12:00 Temperature Pulse Rate 57 L 56 L 57 L Respiratory Rate 26 H 24 H Blood Pressure Pulse Oximetry 98 Oxygen Delivery Mechanical Ventilation Fraction of Inspired Oxygen 60 02/06/25 12:00 02/06/25 12:05 02/06/25 12:05 Temperature Pulse Rate 57 L 57 L Respiratory Rate 23 H 25 H Blood Pressure Pulse Oximetry Oxygen Delivery Fraction of Inspired Oxygen 60 Intake/Output Intake/Output: Intake & Output 02/03/25 02/04/25 02/05/25 02/06/25 23:59 23:59 23:59 23:59 Intake Total 2627.0 3305.6 2695.2 1670.8 Output Total 925 1100 625 400 Balance 1702.0 2205.6 2070.2 1270.8 Meds/Results Medications: Active Medications Generic Name Dose Route Start Last Admin Trade Name Freq PRN Reason Stop Dose Admin Acetaminophen 650 mg 02/01/25 14:06 02/01/25 15:42 Acetaminophen 650 Mg Suppository RECTAL 650 mg Q6H PRN Administration Mild Pain (1-3) or Fever Acetylcysteine 200 mg 02/01/25 14:00 02/06/25 08:28 Acetylcysteine 20% Inhal Soln 800 Mg/4 Ml Vial INHALATION 200 mg Q6HRT TATYANA Administration Albuterol/Ipratropium 3 ml 01/30/25 14:00 02/06/25 08:28 Ipratropium 0.5 Mg/Albuterol Sulfate 2.5 Mg Ampul.Neb 3 Ml INHALATION 3 ml Q6HRT TATYANA Administration Alteplase, Recombinant 2 mg 02/02/25 10:10 Alteplase 2 Mg Vial (Cathflo) IV PUSH ONCE PRN Line Occlusion Dextrose 12.5 gm 02/02/25 10:13 Dextrose 50% 25 Gm/50 Ml Syringe IV PUSH PRN PRN Hypoglycemia Protocol Glucagon 1 mg 02/02/25 10:13 Glucagon For Inj 1 Mg Vial IM PRN PRN Hypoglycemia Protocol Glucose 15 gm 02/02/25 10:13 Glucose Oral Gel 15 Gm Of Glucse In 37.5 Gm Tube PO PRN PRN Hypoglycemia Protocol Dexmedetomidine HCl 400 mcg in 100 mls @ 16.5 mls/hr 01/30/25 10:30 02/06/25 12:05 Precedex 400 Mcg/100 Ml IV CONT 0.4 mcg/kg/hr .Q6H4M TATYANA 16.5 mls/hr Administration Protocol 0.4 MCG/KG/HR Multivitamins 1.25 ml/ 1,002.5 mls @ 50 mls/hr 02/02/25 14:00 02/06/25 12:06 Multivitamins 1.25 ml/ Amino IV CONT 50 mls/hr Acids/Dextrose .Q20H3M TATYANA Administration Protocol Dextrose 1,000 mls @ 50 mls/hr 02/02/25 10:12 Dextrose 10% IV CONT .Q20H PRN if PN is interrupted Fat Emulsion Intravenous 250 mls @ 20.833 mls/hr 02/02/25 14:00 02/06/25 04:15 Lipids 20% IVPB Infused Q24H TATYANA Infusion Dextrose 1,000 mls @ 100 mls/hr 02/02/25 10:13 Dextrose 5% 1,000 Ml IVPB PRN PRN Hypoglycemia Protocol Midazolam HCl 100 mg in 100 mls @ 5 mls/hr 02/04/25 21:25 02/06/25 12:00 Versed 100 Mg/Ns 100 Ml IV CONT 5 mg/hr .Q20H TATYANA 5 mls/hr Titration Protocol 5 MG/HR Norepinephrine Bitartrate 8 mg in 250 mls @ 3.75 mls/hr 02/04/25 22:15 02/06/25 10:00 Levophed 8 Mg/D5w 250 Ml IV CONT 2 mcg/min .Q24H TATYANA 3.75 mls/hr Titration Protocol 2 MCG/MIN Meropenem 1 gm/ Sodium 100 mls @ 200 mls/hr 02/05/25 13:30 02/06/25 05:33 Chloride IVPB Infused Q8HR TATAYNA Infusion Insulin Aspart 2 - 5 units 02/02/25 12:00 02/06/25 11:58 Insulin Aspart (*Bkc) 100 Units/Ml SUB-Q Not Given Q6HR TATYANA Protocol Multi-Ingred Cream/Lotion/Oil/Oint 1 applic 01/28/25 09:15 02/06/25 08:13 Mineral Oil/White Petrolatum Ointment EACH EYE 1 applic Q12HR TATYANA Administration Ondansetron HCl 4 mg 01/28/25 01:51 Ondansetron Inj 4 Mg/2 Ml Vial IV PUSH Q4H PRN Nausea Pantoprazole Sodium 40 mg 02/05/25 09:00 02/06/25 08:13 Pantoprazole Sodium Iv 40 Mg Vial IV PUSH 40 mg QAM TATYANA Administration Sodium Chloride 10 ml 01/28/25 14:00 02/06/25 05:05 Central Line Flush IV PUSH 10 ml Q8HR TTAYANA Administration Sodium Chloride 20 ml 01/28/25 06:37 Central Line Flush IV PUSH PRN PRN after blood draws Radiology Results: ITS Impressions Abdomen/Pelvis CTA 01/28/25 00:08 IMPRESSION: Findings within the liver for which malignancy is suspected. Additional findings within the rectum for which acute hemorrhage is suspected (likely secondary to anorectal varices). No findings to suggest upper GI bleeding. 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 Incidental notation is made of cholelithiasis. Abdomen X-Ray 01/28/25 13:57 IMPRESSION: 1. Nasogastric tube in stomach. Head CT 02/02/25 13:34 IMPRESSION: 1. No acute intracranial process. 2. Stable age-related changes including mild diffuse volume loss and mild scattered white matter hypoattenuation consistent with chronic small vessel ischemic disease. Chest/Abdomen/Pelvis CT 02/05/25 10:13 IMPRESSION: 1. Tiny left-sided pleural effusion. Small right-sided pleural effusion. 2. Moderate to large groundglass and patchy opacities scattered throughout both lungs. Differential is broad and includes but is not limited to edema or pneumonia. Recommend follow-up to resolution. 3. Moderate-sized consolidations in the lower lobes, larger on the right, with air bronchograms. Recommend follow-up to resolution. 4.The liver is heterogeneous. Micronodular appearance to the surface of the liver. There is a 2.4 cm low-density lesion in the posterior segment of the right lobe of the liver. A liver mass MRI is recommended. Evaluation of the liver is significantly limited due to artifact. 5. Moderate amount of nonspecific fat stranding and ascites scattered throughout the abdomen and pelvis. 6. Cholelithiasis. Chest X-Ray 02/06/25 07:02 Impression: 1: Improving patchy bilateral airspace disease,, most likely pneumonia or edema. Clinically correlate. Labs Labs: Laboratory Results - last 24 hr 02/05/25 02/05/25 02/06/25 15:57 18:11 00:03 WBC RBC Hgb Hct MCV MCH MCHC RDW Plt Count MPV Immature Gran % (Auto) Neut % (Auto) Lymph % (Auto) [place] % (Auto) Eos % (Auto) Baso % (Auto) Lymph # (Auto) [place] # (Auto) Eos # (Auto) Baso # (Auto) Abs Immat Gran (auto) Absolute Neuts (auto) Absolute Nucleated RBC Band Neutrophils % Nucleated RBC % Platelet Estimate Hypochromasia Target Cells [place] Cells Schistocytes PT INR APTT Puncture Site ABG pH ABG pCO2 ABG pO2 ABG PO2/FiO2 Ratio ABG HCO3 ABG O2 Saturation ABG O2 Content ABG Base Excess A-a Gradient Oxyhemoglobin Carboxyhemoglobin Methemoglobin Reduced Hemoglobin Total Hemoglobin O2 Delivery Device O2 Liters/Min Minute Volume Vent Rate Vent Mode FiO2 Tidal Volume PEEP Peak Inspir Pressure Pressure Support Sodium Potassium Chloride Carbon Dioxide Anion Gap BUN Creatinine Estim Creat Clear Calc Estimated GFR Glucose POC Capillary Glucose 179 H 155 H Calcium Phosphorus Magnesium Total Bilirubin AST ALT Alkaline Phosphatase Ammonia Total Protein Albumin Vancomycin Trough 20.0 02/06/25 02/06/25 02/06/25 04:15 05:07 06:17 WBC 17.4 H RBC 3.02 L Hgb 10.5 L Hct 31.8 L MCV 105.3 H MCH 34.8 H MCHC 33.0 RDW 23.0 H Plt Count 125 L MPV 10.8 H Immature Gran % (Auto) 2.4 H Neut % (Auto) 82.9 H Lymph % (Auto) 6.7 L [place] % (Auto) 5.4 Eos % (Auto) 2.3 Baso % (Auto) 0.3 Lymph # (Auto) 1.17 [place] # (Auto) 0.9 H Eos # (Auto) 0.4 H Baso # (Auto) 0.1 Abs Immat Gran (auto) 0.42 H Absolute Neuts (auto) 14.4 H Absolute Nucleated RBC 0.030 H Band Neutrophils % 0 Nucleated RBC % 0.2 Platelet Estimate Slightly decreased Hypochromasia 1+ Target Cells 1+ [place] Cells 1+ Schistocytes None seen PT 19.8 H INR 1.7 APTT 30.8 Puncture Site Left radial ABG pH 7.390 ABG pCO2 28.2 L ABG pO2 56.1 L ABG PO2/FiO2 Ratio 1.12 ABG HCO3 16.7 L ABG O2 Saturation 89.5 L ABG O2 Content 14.8 L ABG Base Excess -6.9 A-a Gradient 268.7 Oxyhemoglobin 87.2 L* Carboxyhemoglobin 0.8 Methemoglobin 0.3 Reduced Hemoglobin 11.7 H Total Hemoglobin 12.1 O2 Delivery Device Ventilator O2 Liters/Min Not Reportable Minute Volume Not Reportable Vent Rate 16 Vent Mode Cmv FiO2 50 Tidal Volume 400 PEEP 10 Peak Inspir Pressure Not Reportable Pressure Support Not Reportable Sodium 142 Potassium 3.6 Chloride 115 H Carbon Dioxide 17 L Anion Gap 10 BUN 47 H Creatinine 1.16 H Estim Creat Clear Calc 76 Estimated GFR 47 L Glucose 164 H POC Capillary Glucose 173 H Calcium 9.4 Phosphorus 2.7 Magnesium 1.7 Total Bilirubin 4.6 H AST 152 H ALT 48 H Alkaline Phosphatase 86 Ammonia < 9 L Total Protein 6.7 Albumin 3.1 L Vancomycin Trough 02/06/25 11:51 WBC RBC Hgb Hct MCV MCH MCHC RDW Plt Count MPV Immature Gran % (Auto) Neut % (Auto) Lymph % (Auto) [place] % (Auto) Eos % (Auto) Baso % (Auto) Lymph # (Auto) [place] # (Auto) Eos # (Auto) Baso # (Auto) Abs Immat Gran (auto) Absolute Neuts (auto) Absolute Nucleated RBC Band Neutrophils % Nucleated RBC % Platelet Estimate Hypochromasia Target Cells [place] Cells Schistocytes PT INR APTT Puncture Site ABG pH ABG pCO2 ABG pO2 ABG PO2/FiO2 Ratio ABG HCO3 ABG O2 Saturation ABG O2 Content ABG Base Excess A-a Gradient Oxyhemoglobin Carboxyhemoglobin Methemoglobin Reduced Hemoglobin Total Hemoglobin O2 Delivery Device O2 Liters/Min Minute Volume Vent Rate Vent Mode FiO2 Tidal Volume PEEP Peak Inspir Pressure Pressure Support Sodium Potassium Chloride Carbon Dioxide Anion Gap BUN Creatinine Estim Creat Clear Calc Estimated GFR Glucose POC Capillary Glucose 200 H Calcium Phosphorus Magnesium Total Bilirubin AST ALT Alkaline Phosphatase Ammonia Total Protein Albumin Vancomycin Trough Quality VTE Prophylaxis VTE prophylaxis: mechanical ordered
[2025-02-06] MEDS: FAT EMULSIONS IV 20% 250 ML 20.83 ML IVPB (15:20)
[2025-02-06] MEDS: MIDAZOLAM HCL (*CRX) 2 MG/2 ML VIAL IV PUSH (15:24)
[2025-02-06] MEDS: MIDAZOLAM 100MG/NS 100ML(*CRX) 100 MG/100 ML BAG 7 MG IV CONT (21:26)
[2025-02-06] MEDS: FENTANYL 2,500MCG/NS250ML(*CRX 2,500 MCG/250 ML BAG IV CONT (23:30)
[2025-02-07] VITALS (34 sets, daily range): BP systolic 82–143; BP diastolic 56–92; PULSE 55–82; RESP 13–30; TEMP 36.7–37.3; O2SAT 93–100
[2025-02-07] MEDS: ACETYLCYSTEINE 20% INHAL SOLN 800 MG/4 ML VIAL 200 MG INHALATION ×4 (02:47→20:44)
[2025-02-07] MEDS: IPRATROPIUM 0.5 MG/ALBUTEROL SULFATE 2.5 MG AMPUL.NEB 3 ML INHALATION ×4 (02:47→20:45)
[2025-02-07 04:55] LABS: Alveolar/Arterial O2 Gradient 253.7 mmHg; Carboxyhemoglobin 0.6 % THb (0-2.0); Fractional Inspired Oxygen 50 %; HCO3 ABG 17.5 mEq/l (22.0-26.0); Methemoglobin ABG 0.1 %THb (0-1.5); Oxygen Content ABG 14.2 %vol (16.0-22.0); Oxygen Saturation ABG 91.5 % (95.0-100.0); PCO2 ABG 34.0 mmHg (35.0-45.0); PO2 ABG 64.6 mmHg (80.0-100.0); PO2 FiO2 Ratio Arterial Blood 1.29 %; Reduced Hemoglobin 8.6 %THb (0-5.0)
[2025-02-07 04:59] LABS: Modified Allen's Test Pass; Site Drawn LEFT RADIAL
[2025-02-07 05:01] LABS: Arterial Blood Gas Tidal Volume 400 ml; Arterial Blood Gas Ventilator rate 16 /MIN
[2025-02-07] MEDS: MEROPENEM 1 GM in SODIUM CHLORIDE 0.9% IV 100 ML 200 ML IVPB ×3 (05:45→22:04)
[2025-02-07 06:18] LABS: Ammonia 22 umol/L (9-30)
[2025-02-07 06:19] LABS: Estimated CRCL calculation 70 ml/min; Estimated Glomerular Filt Rate 43; Triglycerides 113 mg/dL (<150)
[2025-02-07] MEDS: CENTRAL LINE FLUSH 10 ML IV PUSH ×3 (07:00→22:04)
[2025-02-07] MEDS: AMINO ACIDS 5%/DEXTROSE 15% 1,000 ML with MULTIVITAMINS-12 INJ VIAL 1 1.25 ML, MULTIVIT... 50 ML IV CONT (08:31)
[2025-02-07] MEDS: MINERAL OIL/WHITE PETROLATUM OINTMENT 1 APPLIC EACH EYE ×2 (08:32→21:51)
[2025-02-07] MEDS: PANTOPRAZOLE SODIUM IV 40 MG VIAL IV PUSH (08:37)
[2025-02-07 09:46] LABS: Hematocrit 31.2 % (37.0-47.0); Hemoglobin 10.0 g/dL (12.0-15.0); Mean Corpuscular HGB Conc 32.1 g/dl (32-36); Mean Corpuscular Hemoglobin 34.2 pg (26-34); Mean Corpuscular Volume 106.8 fl (80-100); Platelet Count Result 162 k/mm3 (150-375); Red Blood Count 2.92 M/mm3 (4.2-5.4); White Blood Count 18.1 K/mm3 (4.5-10.0)
[2025-02-07 10:11] LABS: Anion Gap 8 mmol/L (4-12); Blood Urea Nitrogen 54 mg/dL (7-17); Calcium 9.2 mg/dL (8.4-10.2); Carbon Dioxide 18 mmol/L (22-30); Chloride 114 mmol/L (98-107); Estimated CRCL calculation 65 ml/min; Estimated Glomerular Filt Rate 41; Glucose 159 mg/dL (65-110); Magnesium 1.7 mg/dL (1.6-2.3); Potassium 3.7 mmol/L (3.4-5.0); Sodium 140 mmol/L (137-145)
[2025-02-07] MEDS: MIDAZOLAM 100MG/NS 100ML(*CRX) 100 MG/100 ML BAG IV CONT (12:00)
--- NOTE | 2025-02-07 12:39 | WPDINTPN ---
Progress Note: A&P Assessment and Plan (1) Airway compromise: Code(s): J98.8 - Other specified respiratory disorders Status: Acute Assessment and Plan: Patient encephalopathic with elevated ammonia level, not protecting her airway, also intubated for aspiration prevention and for EGD -01/28: Intubated patient for airway protection due to encephalopathy -currently on CMV mode of ventilation, -chest x-ray and ABGs reviewed, maintain O2 sats > 92%, ventilator adjusted, increase PEEP to 12 given her body habitus and 70% FiO2 02/01: Patient continues to have thick ETT secretions, continue Mucomyst nebs, status post Pulmozyme 02/02: Patient spiked fevers, continues to have thick ETT secretions, borderline blood pressure, started patient on cefepime and vancomycin (02/02) 02/02: Blood cultures: No growth x2 02/02: Sputum culture: ESBL E coli 02/04: Lasix 40 mg IV x1 -02/05: Switched cefepime to meropenem (02/05) -02/06: Discontinued vancomycin -CT scan of the chest abdomen and pelvis: IMPRESSION: 1. Tiny left-sided pleural effusion. Small right-sided pleural effusion. 2. Moderate to large ground glass and patchy opacities scattered throughout both lungs. Differential is broad and includes but is not limited to edema or pneumonia. Recommend follow-up to resolution. 3. Moderate-sized consolidations in the lower lobes, larger on the right, with air bronchograms. Recommend follow-up to resolution. 4.The liver is heterogeneous. Micronodular appearance to the surface of the liver. There is a 2.4 cm low-density lesion in the posterior segment of the right lobe of the liver. A liver mass MRI is recommended. Evaluation of the liver is significantly limited due to artifact. 5. Moderate amount of nonspecific fat stranding and ascites scattered throughout the abdomen and pelvis. 6. Cholelithiasis. (2) Septic shock: Code(s): A41.9 - Sepsis, unspecified organism; R65.21 - Severe sepsis with septic shock Status: Acute Assessment and Plan: Patient with ESBL E coli pneumonia on sputum culture -low blood pressures likely related to sepsis/shock -continue Levophed,, maintain MAP > 65 mmHg or SBP > 100 mmHg at all times for adequate end organ perfusion -antibiotics as above (3) Pneumonia: Code(s): J18.9 - Pneumonia, unspecified organism Status: Acute Assessment and Plan: 02/02: Chest x-ray with worsening infiltrates, thick cream to yellow colored secretion -sputum cultures as above -continue antibiotics as above (4) Encephalopathy: Qualifiers: Encephalopathy type: metabolic Qualified Code(s): G93.41 - Metabolic encephalopathy Code(s): G93.40 - Encephalopathy, unspecified Status: Acute Assessment and Plan: Multifactorial, initially thought to be secondary to hyperammonemia, liver dysfunction,, shock -patient did receive lactulose enema on 01/31/2025, good bowel movements x2 Ammonia levels have normalized Continue to monitor -anisocoria, CT scan of the brain 01/28/2025 with no significant abnormality seen -continues to be encephalopathic -02/02/2025, repeat CT scan of the brain with no acute intracranial process, chronic small vessel ischemic disease -appreciate Neurology evaluation, -02/04: EEG: Abnormal record due to the absence of the normal background rhythm and due to the presence of bihemispheric slow activity. These findings are suggestive of organic or metabolic encephalopathy or postictal state. Clinical correlation recommended. This tracing is not compatible with electrocerebral silence. 02/04: Patient did open her eyes and tracked, followed commands with lower extremities 02/05: required increasing sedation overnight due to hypoxia and worsening chest x-ray (5) Hemorrhagic shock: Code(s): R57.8 - Other shock Status: Acute Assessment and Plan: RESOLVED Pt presented with rectal bleed, CT showed esophageal and rectal varices. -Transfused 2 units unmatched PRBC in the ER -hemoglobin this morning is 9.3, platelets 186 -01/28: INR 1.6, will give vitamin K -01/28: Transfused 1 unit of FFP and 1 unit of packed RBC -01/30: 1 unit of FFP and 1 unit of packed RBCs were transfused 02/05: Hypoxia, hypotension, Levophed was restarted,, maintain MAP > 65 mm Hg at all times for adequate end organ perfusion, continue antibiotics as above -01/29: Hb 7.3, INR 1.8 this morning. Transfused 1 unit of FFP and 1 unit of packed RBC, will also repeat vitamin K IVPB -01/30: Hemoglobin remained stable, decreased NG output. Discussed with GI, will continue octreotide. Discontinued Protonix infusion and IV Protonix -01/31: Hemoglobin is 9.7 this morning and stable, NG was removed 01/30 with EGD. Will continue octreotide per GI -02/01: Hemoglobin 10.1 this morning in stable, patient remains on octreotide infusion -04/04: Hemoglobin 10.4 and stable, patient remains on octreotide infusion per GI -02/03: Hemoglobin remained stable at 9.0 -02/04: Hemoglobin 9.5 and stable 01/28: CTA scan of the abdomen and pelvis: Findings within the liver for which malignancy is suspected. Additional findings within the rectum for which acute hemorrhage is suspected (likely secondary to anorectal varices). No findings to suggest upper GI bleeding. 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 Incidental notation is made of cholelithiasis. (6) Esophageal varices: Qualifiers: Esophageal varices bleeding: with bleeding Esophageal varices type: unspecified type Qualified Code(s): I85.01 - Esophageal varices with bleeding Code(s): I85.00 - Esophageal varices without bleeding Status: Acute Assessment and Plan: Esophageal varices as seen on CTA abdomen and pelvis. -appreciate GI evaluation -01/28: EGD: Showed actively bleeding gastric varix at the gastric cardia, a band ligation device was used to place 1 band, moderate gastritis was seen in the stomach. The gastric has a moderate portal hypertensive change. Large amount of blood was seen in the distal esophagus and the stomach the bowel and the 2nd portion of duodenum was normal with no ulcers or masses 01/30: Repeat EGD: Showed medium grade 3 varices (large varices almost occluding the esophageal lumen were present in the distal esophagus. There was no evidence of bleeding bleeding corresponding to the previous band. To more bands were placed. There was a large fundal pool of blood in the stomach. The bulb and the 2nd portion of duodenum was normal Appreciate GI following the patient, discussed with GI, -OFF octreotide infusion (7) Rectal varices: Code(s): K64.9 - Unspecified hemorrhoids Status: Acute Assessment and Plan: Likely related to alcoholic cirrhosis, (8) Alcoholic cirrhosis of liver with ascites: Code(s): K70.31 - Alcoholic cirrhosis of liver with ascites Status: Acute Assessment and Plan: History of alcoholic cirrhosis -LFTs and bilirubin elevated but stable -could be related to shock liver, cirrhosis, bleeding -status post ceftriaxone (01/28) for SBP prophylaxis -continue to monitor LFTs and bilirubin -INR elevated, status post vitamin K and FFP, INR is stable -continue to monitor -02/04: INR 1.7, vitamin K 10 mg IV piggyback x1 (9) Acute kidney injury: Code(s): N17.9 - Acute kidney failure, unspecified Status: Acute Assessment and Plan: Acute kidney injury, likely related to hemorrhagic shock -low urine output, -02/06: Creatinine is trending to increase with septic shock likely related to ESBL E coli pneumonia -will maintain adequate SBP and MAP for adequate renal perfusion -maintain adequate MAP and SBP -continue to monitor urine output, renal function electrolytes (10) Abnormal CT of liver: Code(s): R93.2 - Abnormal findings on diagnostic imaging of liver and biliary tract Status: Acute Assessment and Plan: CT abdomen and pelvis as above: Suspicious for malignancy -AFP significantly elevated to 83,546 (0.0-9.2) -GI is following the patient: Recommended may need MRI liver protocol when more stable and extubated Plan DVT prophylaxis: SCDs, no chemoprophylaxis due to hemorrhagic shock and GI bleed Stress ulcer prophylaxis: Protonix IV daily Nutrition: TPN started on 02/02, 02/06: GI was okay with NG tube placement. Unsuccessful placement of the NG tube as it was quite willing in the mouth and esophagus. 02/07: Dobbhoff tube inserted, start tube feeds, will keep goal at low for today Code Status: DNR Critical Care Time Spent: 33 minutes -will update family 02/01: Discussed at length with patient's sister Jinny, she wants to be the decision maker, appreciate Allison from care coordination discussed with Jinny and patient's daughter Modesta. Modesta agreed the Jinny to be the surrogate decision maker. They also agree to make her a do not resuscitate, orders for DNR when placed in the chart. I answered all the questions 01/31: Discussed with Modesta Stearns, patient's daughter at [phone], updated the daughter with patient's condition from the time she came to the hospital until today. She is aware that patient is not waking up despite being off sedation likely related to hepatic encephalopathy. I updated her with the repeat EGD that was done yesterday and that the patient has received multiple blood products. I also discussed with her code status to which the daughter stated she wanted her to be a full code. She did not have any other questions. 01/30: Discussed with Jinny Cabezas, patient's sister and updated her with patient's condition and plan of care. She stated that the patient has a daughter with anemia of Modesta Stearns, she was supposed to contact the daughter and I asked to give me a call. Will try to locate daughter's number and will give her a call and explain to her patient's condition/situation and recommendations of the efficiency miner. Due to a high probability of clinically significant, life threatening deterioration, the patient required my highest level of preparedness to intervene emergently and I personally spent this critical care time directly and personally managing the patient. This critical care time included obtaining a history; examining the patient; pulse oximetry; ordering and review of studies; arranging urgent treatment with development of a management plan; evaluation of patient's response to treatment; frequent reassessment; and discussions with other providers. It was exclusive of separately billable procedures and treating other patients and teaching time. Please see Assessment and Plan section and the rest of the note for further information on patient assessment and treatment This dictation may have been done utilizing a voice recognition system. Attempts have been made to correct errors. However, there may be uncorrected grammatical, spelling, and recognitions errors present. Subjective Date/time seen: 02/07/25 12:39 Interval history: Reason for consult: GI bleed, Esophageal and rectal varices, shock, altered mental status, anisocoria, unable to protect her airway, intubated and on mechanical ventilator, hyperkalemia, acute renal failure, elevated LFTs 01/28: EGD: Showed actively bleeding gastric varix at the gastric cardia, a band ligation device was used to place 1 band, moderate gastritis was seen in the stomach. The gastric has a moderate portal hypertensive change. Large amount of blood was seen in the distal esophagus and the stomach the bowel and the 2nd portion of duodenum was normal with no ulcers or masses 01/30: Repeat EGD: Showed medium grade 3 varices (large varices almost occluding the esophageal lumen were present in the distal esophagus. There was no evidence of bleeding bleeding corresponding to the previous band. To more bands were placed. There was a large fundal pool of blood in the stomach. The bulb and the 2nd portion of duodenum was normal 02/07/2025: Patient seen and examined the ICU, remains intubated on CMV mode of ventilation, peep of 10, 50% FiO2. Patient was agitated overnight, Precedex was discontinued. Started Versed and fentanyl infusion. Does not open eyes or follow simple command. Does not withdraw to pain. Urine output has been low. Creatinine increasing. Worsening WBC count. Remains on Levophed Hemoglobin remains stable Review of Systems Review of Systems: ROS unobtainable: Yes unobtainable due to endotracheal tube, unobtainable due to medical condition and unobtainable due to mental status Exam Narrative: General: Patient is intubated and sedated in no acute distress HEENT:? Pupils unequal, R>L, but reactive, sclera is icteric Neck:? supple Respiratory:? Coarse breath sounds bilaterally, decreased at bases, no wheezing noted this more, adequate air entry Cardiac:? S1 S2 normal, regular rate and rhythm Abdomen:? soft, nontender, non distended, morbidly obese, very hypoactive bowel sounds Extremities:?b/l edema of lower extremities, palpable pedal pulses Neuro:? Patient is intubated fentanyl and Versed infusion, does not open her eyes or follow simple commands, does not withdraw to pain Skin:? Feet are warm today Psych:? unable to assess Objective Data Vital Signs Vital Signs: Vital Signs - 24 hr 02/06/25 14:00 02/06/25 14:00 02/06/25 14:00 Temperature 99.1 F Pulse Rate 53 L 53 L 58 L Respiratory Rate 24 H 24 H Blood Pressure 106/72 Pulse Oximetry 99 Oxygen Delivery Fraction of Inspired Oxygen 02/06/25 14:00 02/06/25 14:00 02/06/25 14:05 Temperature Pulse Rate 58 L 53 L 57 L Respiratory Rate 26 H Blood Pressure 106/72 Pulse Oximetry 99 Oxygen Delivery Mechanical Ventilation Fraction of Inspired Oxygen 60 02/06/25 14:05 02/06/25 15:58 02/06/25 16:00 Temperature 99.4 F Pulse Rate 53 L 67 57 L Respiratory Rate 24 H 17 24 H Blood Pressure 130/53 L Pulse Oximetry 97 100 Oxygen Delivery Mechanical Ventilation Fraction of Inspired Oxygen 60 02/06/25 16:00 02/06/25 16:00 02/06/25 16:00 Temperature Pulse Rate 56 L 59 L Respiratory Rate 22 H 21 H Blood Pressure Pulse Oximetry Oxygen Delivery Fraction of Inspired Oxygen 60 02/06/25 16:00 02/06/25 16:53 02/06/25 17:47 Temperature Pulse Rate 69 60 56 L Respiratory Rate 21 H Blood Pressure 112/76 Pulse Oximetry 97 Oxygen Delivery Mechanical Ventilation Fraction of Inspired Oxygen 50 02/06/25 18:00 02/06/25 18:00 02/06/25 18:00 Temperature 99.4 F Pulse Rate 56 L 55 L 56 L Respiratory Rate 22 H 22 H Blood Pressure 107/66 Pulse Oximetry 96 Oxygen Delivery Fraction of Inspired Oxygen 02/06/25 18:00 02/06/25 18:00 02/06/25 19:15 Temperature Pulse Rate 56 L 68 57 L Respiratory Rate 22 H 26 H Blood Pressure 107/66 Pulse Oximetry Oxygen Delivery Fraction of Inspired Oxygen 02/06/25 19:15 02/06/25 20:00 02/06/25 20:00 Temperature 99.6 F Pulse Rate 57 L 54 L 55 L Respiratory Rate 28 H 25 H 26 H Blood Pressure 109/69 Pulse Oximetry 97 Oxygen Delivery Fraction of Inspired Oxygen 02/06/25 20:00 02/06/25 20:00 02/06/25 20:00 Temperature Pulse Rate 55 L 55 L Respiratory Rate 26 H Blood Pressure 109/69 Pulse Oximetry Oxygen Delivery Fraction of Inspired Oxygen 50 02/06/25 20:00 02/06/25 20:00 02/06/25 20:58 Temperature Pulse Rate 55 L 54 L Respiratory Rate Blood Pressure Pulse Oximetry 98 Oxygen Delivery Mechanical Ventilation Mechanical Ventilation Fraction of Inspired Oxygen 50 50 02/06/25 20:58 02/06/25 21:26 02/06/25 21:26 Temperature Pulse Rate 54 L 68 68 Respiratory Rate 30 H 26 H 26 H Blood Pressure Pulse Oximetry Oxygen Delivery Fraction of Inspired Oxygen 02/06/25 22:00 02/06/25 22:00 02/06/25 22:00 Temperature Pulse Rate 65 65 65 Respiratory Rate 30 H 30 H Blood Pressure 110/65 Pulse Oximetry Oxygen Delivery Fraction of Inspired Oxygen 02/06/25 22:00 02/06/25 22:00 02/06/25 22:17 Temperature 99.2 F Pulse Rate 65 65 68 Respiratory Rate 30 H 32 H Blood Pressure 110/65 Pulse Oximetry 94 Oxygen Delivery Fraction of Inspired Oxygen 02/06/25 23:30 02/06/25 23:30 02/06/25 23:30 Temperature Pulse Rate 58 L 58 L 58 L Respiratory Rate 26 H 26 H 26 H Blood Pressure Pulse Oximetry Oxygen Delivery Fraction of Inspired Oxygen 02/06/25 23:43 02/06/25 23:50 02/07/25 00:00 Temperature 99.1 F Pulse Rate 59 L 58 L 57 L Respiratory Rate 35 H 26 H Blood Pressure 109/69 Pulse Oximetry 97 96 Oxygen Delivery Mechanical Ventilation Fraction of Inspired Oxygen 50 02/07/25 00:00 02/07/25 00:00 02/07/25 00:00 Temperature Pulse Rate 57 L Respiratory Rate 26 H Blood Pressure Pulse Oximetry Oxygen Delivery Mechanical Ventilation Fraction of Inspired Oxygen 50 50 02/07/25 00:00 02/07/25 00:00 02/07/25 00:00 Temperature Pulse Rate 57 L 58 L 58 L Respiratory Rate 26 H 26 H Blood Pressure 109/69 Pulse Oximetry Oxygen Delivery Fraction of Inspired Oxygen 02/07/25 00:00 02/07/25 00:10 02/07/25 00:34 Temperature Pulse Rate 56 L 56 L 57 L Respiratory Rate 27 H 30 H Blood Pressure Pulse Oximetry Oxygen Delivery Fraction of Inspired Oxygen 02/07/25 00:40 02/07/25 02:00 02/07/25 02:00 Temperature 99.2 F Pulse Rate 56 L 55 L 55 L Respiratory Rate 27 H 21 H Blood Pressure 103/69 Pulse Oximetry 95 Oxygen Delivery Fraction of Inspired Oxygen 02/07/25 02:00 02/07/25 02:00 02/07/25 02:00 Temperature Pulse Rate 55 L 55 L 55 L Respiratory Rate 22 H 22 H Blood Pressure 103/69 Pulse Oximetry Oxygen Delivery Fraction of Inspired Oxygen 02/07/25 02:00 02/07/25 02:47 02/07/25 02:47 Temperature Pulse Rate 55 L 57 L 57 L Respiratory Rate 22 H 22 H Blood Pressure Pulse Oximetry 97 Oxygen Delivery Mechanical Ventilation Fraction of Inspired Oxygen 50 02/07/25 03:00 02/07/25 04:00 02/07/25 04:00 Temperature 98.7 F Pulse Rate 55 L 58 L Respiratory Rate 22 H 19 Blood Pressure 106/59 L Pulse Oximetry 95 Oxygen Delivery Fraction of Inspired Oxygen 50 02/07/25 04:00 02/07/25 04:00 02/07/25 04:00 Temperature Pulse Rate 59 L 59 L Respiratory Rate 21 H 21 H Blood Pressure Pulse Oximetry Oxygen Delivery Mechanical Ventilation Fraction of Inspired Oxygen 50 02/07/25 04:00 02/07/25 04:00 02/07/25 04:00 Temperature Pulse Rate 59 L 59 L 59 L Respiratory Rate 21 H Blood Pressure 103/57 L Pulse Oximetry Oxygen Delivery Fraction of Inspired Oxygen 02/07/25 04:30 02/07/25 04:48 02/07/25 06:00 Temperature 98.7 F Pulse Rate 58 L 57 L 57 L Respiratory Rate 21 H Blood Pressure 106/59 L 91/56 L Pulse Oximetry 95 93 Oxygen Delivery Mechanical Ventilation Fraction of Inspired Oxygen 50 02/07/25 06:00 02/07/25 06:00 02/07/25 06:00 Temperature Pulse Rate 56 L 56 L 56 L Respiratory Rate 21 H 21 H Blood Pressure 91/56 L Pulse Oximetry Oxygen Delivery Fraction of Inspired Oxygen 02/07/25 06:00 02/07/25 06:00 02/07/25 08:00 Temperature 98.7 F Pulse Rate 56 L 56 L 57 L Respiratory Rate 21 H 18 Blood Pressure 85/63 L Pulse Oximetry 95 Oxygen Delivery Fraction of Inspired Oxygen 02/07/25 08:00 02/07/25 08:00 02/07/25 08:00 Temperature Pulse Rate 67 67 Respiratory Rate 16 16 Blood Pressure Pulse Oximetry Oxygen Delivery Fraction of Inspired Oxygen 50 02/07/25 08:00 02/07/25 08:03 02/07/25 08:05 Temperature Pulse Rate 67 57 L 71 Respiratory Rate 16 19 Blood Pressure Pulse Oximetry 94 Oxygen Delivery Mechanical Ventilation Fraction of Inspired Oxygen 50 02/07/25 08:19 02/07/25 08:27 02/07/25 08:27 Temperature Pulse Rate 70 69 Respiratory Rate 19 Blood Pressure 85/63 L Pulse Oximetry Oxygen Delivery Fraction of Inspired Oxygen 70 02/07/25 09:23 02/07/25 10:00 02/07/25 11:06 Temperature 98.7 F Pulse Rate 73 Respiratory Rate 23 H Blood Pressure 113/67 Pulse Oximetry 98 Oxygen Delivery Mechanical Ventilation Mechanical Ventilation Fraction of Inspired Oxygen 70 70 Intake/Output Intake/Output: Intake & Output 02/04/25 02/05/25 02/06/25 02/07/25 23:59 23:59 23:59 23:59 Intake Total 3305.6 2695.2 2166.0 1501.3 Output Total 1100 625 650 400 Balance 2205.6 2070.2 1516.0 1101.3 Meds/Results Medications: Active Medications Generic Name Dose Route Start Last Admin Trade Name Freq PRN Reason Stop Dose Admin Acetaminophen 650 mg 02/01/25 14:06 02/01/25 15:42 Acetaminophen 650 Mg Suppository RECTAL 650 mg Q6H PRN Administration Mild Pain (1-3) or Fever Acetylcysteine 200 mg 02/01/25 14:00 02/07/25 08:02 Acetylcysteine 20% Inhal Soln 800 Mg/4 Ml Vial INHALATION 200 mg Q6HRT TATYANA Administration Albuterol/Ipratropium 3 ml 01/30/25 14:00 02/07/25 08:02 Ipratropium 0.5 Mg/Albuterol Sulfate 2.5 Mg Ampul.Neb 3 Ml INHALATION 3 ml Q6HRT TATYANA Administration Alteplase, Recombinant 2 mg 02/02/25 10:10 Alteplase 2 Mg Vial (Cathflo) IV PUSH ONCE PRN Line Occlusion Dextrose 12.5 gm 02/02/25 10:13 Dextrose 50% 25 Gm/50 Ml Syringe IV PUSH PRN PRN Hypoglycemia Protocol Glucagon 1 mg 02/02/25 10:13 Glucagon For Inj 1 Mg Vial IM PRN PRN Hypoglycemia Protocol Glucose 15 gm 02/02/25 10:13 Glucose Oral Gel 15 Gm Of Glucse In 37.5 Gm Tube PO PRN PRN Hypoglycemia Protocol Dexmedetomidine HCl 400 mcg in 100 mls @ 0 mls/hr 01/30/25 10:30 02/07/25 08:00 Precedex 400 Mcg/100 Ml IV CONT 0 mcg/kg/hr .Q0M TATYANA 0 mls/hr Titration Protocol Multivitamins 1.25 ml/ 1,002.5 mls @ 50 mls/hr 02/02/25 14:00 02/07/25 08:31 Multivitamins 1.25 ml/ Amino IV CONT 50 mls/hr Acids/Dextrose .Q20H3M TATYANA Administration Protocol Dextrose 1,000 mls @ 50 mls/hr 02/02/25 10:12 Dextrose 10% IV CONT .Q20H PRN if PN is interrupted Fat Emulsion Intravenous 250 mls @ 20.833 mls/hr 02/02/25 14:00 02/07/25 03:21 Lipids 20% IVPB Infused Q24H TATYANA Infusion Dextrose 1,000 mls @ 100 mls/hr 02/02/25 10:13 Dextrose 5% 1,000 Ml IVPB PRN PRN Hypoglycemia Protocol Midazolam HCl 100 mg in 100 mls @ 9 mls/hr 02/04/25 21:25 02/07/25 08:00 Versed 100 Mg/Ns 100 Ml IV CONT 5 mg/hr .Q11H7M TATYANA 5 mls/hr Titration Protocol 9 MG/HR Norepinephrine Bitartrate 8 mg in 250 mls @ 5.625 mls/hr 02/04/25 22:15 02/07/25 08:27 Levophed 8 Mg/D5w 250 Ml IV CONT 3 mcg/min .Q24H TATYANA 5.63 mls/hr Titration Protocol 3 MCG/MIN Meropenem 1 gm/ Sodium 100 mls @ 200 mls/hr 02/05/25 13:30 02/07/25 06:15 Chloride IVPB Infused Q8HR TATYANA Infusion Fentanyl Citrate 2,500 mcg in 250 mls @ 5 mls/hr 02/06/25 23:05 02/07/25 08:00 Fentanyl 2,500 Mcg/Ns 250 Ml IV CONT 50 mcg/hr .Q50H TATYANA 5 mls/hr Titration Protocol 50 MCG/HR Insulin Aspart 2 - 5 units 02/02/25 12:00 02/07/25 06:42 Insulin Aspart (*Bkc) 100 Units/Ml SUB-Q Not Given Q6HR TATYANA Protocol Multi-Ingred Cream/Lotion/Oil/Oint 1 applic 01/28/25 09:15 02/07/25 08:32 Mineral Oil/White Petrolatum Ointment EACH EYE 1 applic Q12HR TATYANA Administration Ondansetron HCl 4 mg 01/28/25 01:51 Ondansetron Inj 4 Mg/2 Ml Vial IV PUSH Q4H PRN Nausea Pantoprazole Sodium 40 mg 02/05/25 09:00 02/07/25 08:37 Pantoprazole Sodium Iv 40 Mg Vial IV PUSH 40 mg QAM TATYANA Administration Sodium Chloride 10 ml 01/28/25 14:00 02/07/25 07:00 Central Line Flush IV PUSH 10 ml Q8HR TATYANA Administration Sodium Chloride 20 ml 01/28/25 06:37 Central Line Flush IV PUSH PRN PRN after blood draws Radiology Results: ITS Impressions Abdomen/Pelvis CTA 01/28/25 00:08 IMPRESSION: Findings within the liver for which malignancy is suspected. Additional findings within the rectum for which acute hemorrhage is suspected (likely secondary to anorectal varices). No findings to suggest upper GI bleeding. 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 Incidental notation is made of cholelithiasis. Head CT 02/02/25 13:34 IMPRESSION: 1. No acute intracranial process. 2. Stable age-related changes including mild diffuse volume loss and mild scattered white matter hypoattenuation consistent with chronic small vessel ischemic disease. Chest/Abdomen/Pelvis CT 02/05/25 10:13 IMPRESSION: 1. Tiny left-sided pleural effusion. Small right-sided pleural effusion. 2. Moderate to large groundglass and patchy opacities scattered throughout both lungs. Differential is broad and includes but is not limited to edema or pneumonia. Recommend follow-up to resolution. 3. Moderate-sized consolidations in the lower lobes, larger on the right, with air bronchograms. Recommend follow-up to resolution. 4.The liver is heterogeneous. Micronodular appearance to the surface of the liver. There is a 2.4 cm low-density lesion in the posterior segment of the right lobe of the liver. A liver mass MRI is recommended. Evaluation of the liver is significantly limited due to artifact. 5. Moderate amount of nonspecific fat stranding and ascites scattered throughout the abdomen and pelvis. 6. Cholelithiasis. Chest X-Ray 02/07/25 07:12 IMPRESSION: 1. Persistent patchy airspace opacities throughout both lungs consistent with pneumonia, pulmonary edema, acute respiratory distress syndrome or some combination thereof. Abdomen X-Ray 02/07/25 10:42 IMPRESSION: 1. Diffuse opacification of the abdomen without significant bowel gas, likely attributable to ascites. Study limited by patient body habitus. 2: Bibasilar airspace disease may represent edema or pneumonia. Labs Labs: Laboratory Results - last 24 hr 02/06/25 02/07/25 02/07/25 17:59 00:54 04:47 WBC RBC Hgb Hct MCV MCH MCHC RDW Plt Count MPV Puncture Site Left radial ABG pH 7.329 L ABG pCO2 34.0 L ABG pO2 64.6 L ABG PO2/FiO2 Ratio 1.29 ABG HCO3 17.5 L ABG O2 Saturation 91.5 L ABG O2 Content 14.2 L ABG Base Excess -7.6 A-a Gradient 253.7 Oxyhemoglobin 90.7 Carboxyhemoglobin 0.6 Methemoglobin 0.1 Reduced Hemoglobin 8.6 H Total Hemoglobin 11.1 L O2 Delivery Device Ventilator O2 Liters/Min Not Reportable Minute Volume Not Reportable Vent Rate 16 Vent Mode Assist control FiO2 50 Tidal Volume 400 PEEP Not Reportable Peak Inspir Pressure Not Reportable Pressure Support Not Reportable Sodium Potassium Chloride Carbon Dioxide Anion Gap BUN Creatinine Estim Creat Clear Calc Estimated GFR Glucose POC Capillary Glucose 167 H 186 H Lactic Acid Calcium Phosphorus Magnesium Ammonia Triglycerides 02/07/25 02/07/25 02/07/25 05:55 06:05 09:41 WBC 18.1 H RBC 2.92 L Hgb 10.0 L Hct 31.2 L MCV 106.8 H MCH 34.2 H MCHC 32.1 RDW 22.6 H Plt Count 162 MPV 10.1 Puncture Site ABG pH ABG pCO2 ABG pO2 ABG PO2/FiO2 Ratio ABG HCO3 ABG O2 Saturation ABG O2 Content ABG Base Excess A-a Gradient Oxyhemoglobin Carboxyhemoglobin Methemoglobin Reduced Hemoglobin Total Hemoglobin O2 Delivery Device O2 Liters/Min Minute Volume Vent Rate Vent Mode FiO2 Tidal Volume PEEP Peak Inspir Pressure Pressure Support Sodium 140 Potassium 3.7 Chloride 114 H Carbon Dioxide 18 L Anion Gap 8 BUN 54 H Creatinine 1.26 H 1.32 H Estim Creat Clear Calc 70 65 Estimated GFR 43 L 41 L Glucose 159 H POC Capillary Glucose 171 H Lactic Acid 1.5 Calcium 9.2 Phosphorus 2.9 3.0 Magnesium 1.7 Ammonia 22 Triglycerides 113 02/07/25 11:33 WBC RBC Hgb Hct MCV MCH MCHC RDW Plt Count MPV Puncture Site ABG pH ABG pCO2 ABG pO2 ABG PO2/FiO2 Ratio ABG HCO3 ABG O2 Saturation ABG O2 Content ABG Base Excess A-a Gradient Oxyhemoglobin Carboxyhemoglobin Methemoglobin Reduced Hemoglobin Total Hemoglobin O2 Delivery Device O2 Liters/Min Minute Volume Vent Rate Vent Mode FiO2 Tidal Volume PEEP Peak Inspir Pressure Pressure Support Sodium Potassium Chloride Carbon Dioxide Anion Gap BUN Creatinine Estim Creat Clear Calc Estimated GFR Glucose POC Capillary Glucose 159 H Lactic Acid Calcium Phosphorus Magnesium Ammonia Triglycerides Quality VTE Prophylaxis VTE prophylaxis: mechanical ordered
[2025-02-07] MEDS: LACTATED RINGERS 1,000 ML 100 ML IV CONT (14:05)
[2025-02-07] MEDS: LACTULOSE 20 GM/30 ML UDC PO (14:10)
[2025-02-07] MEDS: FAT EMULSIONS IV 20% 250 ML 20.8 ML IVPB (14:11)
--- NOTE | 2025-02-07 14:22 | P.PNIM_ITS ---
Progress Note: A&P Assessment and Plan (1) Encephalopathy: Qualifiers: Encephalopathy type: metabolic Qualified Code(s): G93.41 - Metabolic encephalopathy Code(s): G93.40 - Encephalopathy, unspecified Status: Acute Assessment and Plan: Multifactorial, initially thought to be secondary to hyperammonemia, liver dysfunction,, shock -patient did receive lactulose enema on 01/31/2025, good bowel movements x2 Ammonia levels have normalized Continue to monitor -anisocoria, CT scan of the brain 01/28/2025 with no significant abnormality seen -continues to be encephalopathic -02/02/2025, repeat CT scan of the brain with no acute intracranial process, chronic small vessel ischemic disease -appreciate Neurology evaluation, -02/04: EEG: Abnormal record due to the absence of the normal background rhythm and due to the presence of bihemispheric slow activity. These findings are suggestive of organic or metabolic encephalopathy or postictal state. Clinical correlation recommended. This tracing is not compatible with electrocerebral silence. 02/04: Patient did open her eyes and tracked, followed commands with lower extremities 02/05: required increasing sedation overnight due to hypoxia and worsening chest x-ray (2) Airway compromise: Code(s): J98.8 - Other specified respiratory disorders Status: Acute Assessment and Plan: Patient encephalopathic with elevated ammonia level, not protecting her airway, also intubated for aspiration prevention and for EGD -01/28: Intubated patient for airway protection due to encephalopathy -currently on CMV mode of ventilation, -chest x-ray and ABGs reviewed, maintain O2 sats > 92%, ventilator adjusted, increase PEEP to 10 and 60% FiO2 -sedated with Precedex infusion, will have bedside RN wean Precedex and try to wake up patient. When she is more awake will place her on SBT and evaluate for extubation 02/01: Patient continues to have thick ETT secretions, added Pulmozyme and Mucomyst nebulizer 02/02: Patient spiked fevers, continues to have thick ETT secretions, borderline blood pressure, started patient on cefepime and vancomycin (02/02) 02/02: Blood cultures: No growth x2 02/02: Sputum culture: ESBL E coli 02/04: Lasix 40 mg IV x1 -02/05: Switch cefepime to meropenem (02/05) -CT scan of the chest abdomen and pelvis: IMPRESSION: 1. Tiny left-sided pleural effusion. Small right-sided pleural effusion. 2. Moderate to large ground glass and patchy opacities scattered throughout both lungs. Differential is broad and includes but is not limited to edema or pneumonia. Recommend follow-up to resolution. 3. Moderate-sized consolidations in the lower lobes, larger on the right, with air bronchograms. Recommend follow-up to resolution. 4.The liver is heterogeneous. Micronodular appearance to the surface of the liver. There is a 2.4 cm low-density lesion in the posterior segment of the righ t lobe of the liver. A liver mass MRI is recommended. Evaluation of the liver is significantly limited due to artifact. 5. Moderate amount of nonspecific fat stranding and ascites scattered throughout the abdomen and pelvis. 6. Cholelithiasis. (3) Pneumonia: Code(s): J18.9 - Pneumonia, unspecified organism Status: Acute Assessment and Plan: 02/02: Chest x-ray with worsening infiltrates, thick cream to yellow colored secretion -sputum cultures as above -continue antibiotics as above (4) Hemorrhagic shock: Code(s): R57.8 - Other shock Status: Acute Assessment and Plan: RESOLVED Pt presented with rectal bleed, CT showed esophageal and rectal varices. -Transfused 2 units unmatched PRBC in the ER -hemoglobin this morning is 9.3, platelets 186 -01/28: INR 1.6, will give vitamin K -01/28: Transfused 1 unit of FFP and 1 unit of packed RBC -01/30: 1 unit of FFP and 1 unit of packed RBCs were transfused 02/05: Hypoxia, hypotension, Levophed was restarted,, maintain MAP > 65 mm Hg at all times for adequate end organ perfusion, continue antibiotics as above -01/29: Hb 7.3, INR 1.8 this morning. Transfused 1 unit of FFP and 1 unit of packed RBC, will also repeat vitamin K IVPB -01/30: Hemoglobin remained stable, decreased NG output. Discussed with GI, will continue octreotide. Discontinued Protonix infusion and IV Protonix -01/31: Hemoglobin is 9.7 this morning and stable, NG was removed 01/30 with EGD. Will continue octreotide per GI -02/01: Hemoglobin 10.1 this morning in stable, patient remains on octreotide infusion -04/04: Hemoglobin 10.4 and stable, patient remains on octreotide infusion per GI -02/03: Hemoglobin remained stable at 9.0 -02/04: Hemoglobin 9.5 and stable 01/28: CTA scan of the abdomen and pelvis: Findings within the liver for which malignancy is suspected. Additional findings within the rectum for which acute hemorrhage is suspected (likely secondary to anorectal varices). No findings to suggest upper GI bleeding. 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 Incidental notation is made of cholelithiasis. (5) Esophageal varices: Qualifiers: Esophageal varices bleeding: with bleeding Esophageal varices type: unspecified type Qualified Code(s): I85.01 - Esophageal varices with bleeding Code(s): I85.00 - Esophageal varices without bleeding Status: Acute Assessment and Plan: Esophageal varices as seen on CTA abdomen and pelvis. -appreciate GI evaluation -01/28: EGD: Showed actively bleeding gastric varix at the gastric cardia, a band ligation device was used to place 1 band, moderate gastritis was seen in the stomach. The gastric has a moderate portal hypertensive change. Large amount of blood was seen in the distal esophagus and the stomach the bowel and the 2nd portion of duodenum was normal with no ulcers or masses 01/30: Repeat EGD: Showed medium grade 3 varices (large varices almost occluding the esophageal lumen were present in the distal esophagus. There was no evidence of bleeding bleeding corresponding to the previous band. To more bands were placed. There was a large fundal pool of blood in the stomach. The bulb and the 2nd portion of duodenum was normal Appreciate GI following the patient, discussed with GI, -OFF octreotide infusion (6) Rectal varices: Code(s): K64.9 - Unspecified hemorrhoids Status: Acute Assessment and Plan: Likely related to alcoholic cirrhosis, (7) Alcoholic cirrhosis of liver with ascites: Code(s): K70.31 - Alcoholic cirrhosis of liver with ascites Status: Acute Assessment and Plan: History of alcoholic cirrhosis -LFTs and bilirubin elevated but stable -could be related to shock liver, cirrhosis, bleeding -status post ceftriaxone (01/28) for SBP prophylaxis -continue to monitor LFTs and bilirubin -INR elevated, status post vitamin K and FFP, INR is stable -continue to monitor -02/04: INR 1.7, vitamin K 10 mg IV piggyback x1 (8) Acute kidney injury: Code(s): N17.9 - Acute kidney failure, unspecified Status: Acute Assessment and Plan: Acute kidney injury, likely related to hemorrhagic shock -low urine output, creatinine and BUN normal -maintain adequate MAP and SBP -continue to monitor urine output, renal function electrolytes -creatinine remains normal (9) Abnormal CT of liver: Code(s): R93.2 - Abnormal findings on diagnostic imaging of liver and biliary tract Status: Acute Assessment and Plan: CT abdomen and pelvis as above: Suspicious for malignancy -AFP significantly elevated to 83,546 (0.0-9.2) -GI is following the patient: Recommended may need MRI liver protocol when more stable and extubated (10) Septic shock: Code(s): A41.9 - Sepsis, unspecified organism; R65.21 - Severe sepsis with septic shock Status: Acute Assessment and Plan: Patient with ESBL E coli pneumonia on sputum culture -low blood pressures likely related to sepsis/shock -restarted on Levophed,, maintain MAP > 65 mmHg or SBP > 100 mmHg at all times for adequate end organ perfusion -antibiotics as above Plan DVT prophylaxis: SCDs, no chemoprophylaxis due to hemorrhagic shock and GI bleed Stress ulcer prophylaxis: Protonix IV daily Nutrition: TPN started on 02/02, will discuss with GI regarding possibility of NG tube placement and starting and trach feeds Code Status: DNR Critical Care Time Spent: 34 minutes 02/01: Discussed at length with patient's sister Jinny, she wants to be the decision maker, appreciate Allison from care coordination discussed with Jinny and patient's daughter Modesta. Modesta agreed the Jinny to be the surrogate decision maker. They also agree to make her a do not resuscitate, orders for DNR when placed in the chart. I answered all the questions 01/31: Discussed with Modesta Stearns, patient's daughter at [phone], updated the daughter with patient's condition from the time she came to the hospital until today. She is aware that patient is not waking up despite being off sedation likely related to hepatic encephalopathy. I updated her with the repeat EGD that was done yesterday and that the patient has received multiple blood products. I also discussed with her code status to which the daughter stated she wanted her to be a full code. She did not have any other questions. 01/30: Discussed with Jinny Cabezas, patient's sister and updated her with patient's condition and plan of care. She stated that the patient has a daughter with anemia of Modesta Stearns, she was supposed to contact the daughter and I asked to give me a call. Will try to locate daughter's number and will give her a call and explain to her patient's condition/situation and recommendations of the lead refinery supervisor. Chart reviewed. Patient remains intubated and encephalopathy, sputum culture is growing E coli, possibly aspiration, patient will have Dobbhoff inserted today, discuss with trench pipe layer, being treated with meropenem, Off Precedex drip. Off Levophed now. patient is now DNR per patient POA, will monitor and appreciate trench pipe layer. Subjective Date/time seen: 02/07/25 14:22 Interval history: Chart reviewed. Patient remains intubated and encephalopathy, sputum culture is growing E coli, possibly aspiration, patient will have Dobbhoff inserted today, discuss with trench pipe layer, being treated with meropenem, Off Precedex drip. Off Levophed now. patient is now DNR per patient POA, will monitor and appreciate trench pipe layer. Review of Systems Review of Systems: ROS unobtainable: Yes unobtainable due to endotracheal tube Exam Narrative: Patient is comfortable, NAD HEENT: ET tube in place LUNGS:CTA HEART: RR S1S2 ABD: BS+, Soft and nontender Lower extremities: no edema SKIN: nonjaundiced Neuro: On vent and sedated Objective Data Vital Signs Vital Signs: Vital Signs - 24 hr 02/06/25 15:58 02/06/25 16:00 02/06/25 16:00 Temperature 37.4 C Pulse Rate 67 57 L Respiratory Rate 17 24 H Blood Pressure 130/53 L Pulse Oximetry 97 100 Oxygen Delivery Mechanical Ventilation Fraction of Inspired Oxygen 60 60 02/06/25 16:00 02/06/25 16:00 02/06/25 16:00 Temperature Pulse Rate 56 L 59 L 69 Respiratory Rate 22 H 21 H Blood Pressure 112/76 Pulse Oximetry Oxygen Delivery Fraction of Inspired Oxygen 02/06/25 16:53 02/06/25 17:47 02/06/25 18:00 Temperature Pulse Rate 60 56 L 56 L Respiratory Rate 21 H Blood Pressure Pulse Oximetry 97 Oxygen Delivery Mechanical Ventilation Fraction of Inspired Oxygen 50 02/06/25 18:00 02/06/25 18:00 02/06/25 18:00 Temperature 37.4 C Pulse Rate 55 L 56 L 56 L Respiratory Rate 22 H 22 H 22 H Blood Pressure 107/66 Pulse Oximetry 96 Oxygen Delivery Fraction of Inspired Oxygen 02/06/25 18:00 02/06/25 19:15 02/06/25 19:15 Temperature Pulse Rate 68 57 L 57 L Respiratory Rate 26 H 28 H Blood Pressure 107/66 Pulse Oximetry Oxygen Delivery Fraction of Inspired Oxygen 02/06/25 20:00 02/06/25 20:00 02/06/25 20:00 Temperature 37.6 C Pulse Rate 54 L 55 L 55 L Respiratory Rate 25 H 26 H 26 H Blood Pressure 109/69 Pulse Oximetry 97 Oxygen Delivery Fraction of Inspired Oxygen 02/06/25 20:00 02/06/25 20:00 02/06/25 20:00 Temperature Pulse Rate 55 L Respiratory Rate Blood Pressure 109/69 Pulse Oximetry Oxygen Delivery Mechanical Ventilation Fraction of Inspired Oxygen 50 50 02/06/25 20:00 02/06/25 20:58 02/06/25 20:58 Temperature Pulse Rate 55 L 54 L 54 L Respiratory Rate 30 H Blood Pressure Pulse Oximetry 98 Oxygen Delivery Mechanical Ventilation Fraction of Inspired Oxygen 50 02/06/25 21:26 02/06/25 21:26 02/06/25 22:00 Temperature Pulse Rate 68 68 65 Respiratory Rate 26 H 26 H 30 H Blood Pressure Pulse Oximetry Oxygen Delivery Fraction of Inspired Oxygen 02/06/25 22:00 02/06/25 22:00 02/06/25 22:00 Temperature 37.3 C Pulse Rate 65 65 65 Respiratory Rate 30 H 30 H Blood Pressure 110/65 110/65 Pulse Oximetry 94 Oxygen Delivery Fraction of Inspired Oxygen 02/06/25 22:00 02/06/25 22:17 02/06/25 23:30 Temperature Pulse Rate 65 68 58 L Respiratory Rate 32 H 26 H Blood Pressure Pulse Oximetry Oxygen Delivery Fraction of Inspired Oxygen 02/06/25 23:30 02/06/25 23:30 02/06/25 23:43 Temperature Pulse Rate 58 L 58 L 59 L Respiratory Rate 26 H 26 H Blood Pressure Pulse Oximetry 97 Oxygen Delivery Mechanical Ventilation Fraction of Inspired Oxygen 50 02/06/25 23:50 02/07/25 00:00 02/07/25 00:00 Temperature 37.3 C Pulse Rate 58 L 57 L Respiratory Rate 35 H 26 H Blood Pressure 109/69 Pulse Oximetry 96 Oxygen Delivery Mechanical Ventilation Fraction of Inspired Oxygen 50 02/07/25 00:00 02/07/25 00:00 02/07/25 00:00 Temperature Pulse Rate 57 L 57 L Respiratory Rate 26 H 26 H Blood Pressure Pulse Oximetry Oxygen Delivery Fraction of Inspired Oxygen 50 02/07/25 00:00 02/07/25 00:00 02/07/25 00:00 Temperature Pulse Rate 58 L 58 L 56 L Respiratory Rate 26 H Blood Pressure 109/69 Pulse Oximetry Oxygen Delivery Fraction of Inspired Oxygen 02/07/25 00:10 02/07/25 00:34 02/07/25 00:40 Temperature Pulse Rate 56 L 57 L 56 L Respiratory Rate 27 H 30 H 27 H Blood Pressure Pulse Oximetry Oxygen Delivery Fraction of Inspired Oxygen 02/07/25 02:00 02/07/25 02:00 02/07/25 02:00 Temperature 37.3 C Pulse Rate 55 L 55 L 55 L Respiratory Rate 21 H 22 H Blood Pressure 103/69 Pulse Oximetry 95 Oxygen Delivery Fraction of Inspired Oxygen 02/07/25 02:00 02/07/25 02:00 02/07/25 02:00 Temperature Pulse Rate 55 L 55 L 55 L Respiratory Rate 22 H 22 H Blood Pressure 103/69 Pulse Oximetry Oxygen Delivery Fraction of Inspired Oxygen 02/07/25 02:47 02/07/25 02:47 02/07/25 03:00 Temperature Pulse Rate 57 L 57 L 55 L Respiratory Rate 22 H 22 H Blood Pressure Pulse Oximetry 97 Oxygen Delivery Mechanical Ventilation Fraction of Inspired Oxygen 50 02/07/25 04:00 02/07/25 04:00 02/07/25 04:00 Temperature 37.1 C Pulse Rate 58 L Respiratory Rate 19 Blood Pressure 106/59 L Pulse Oximetry 95 Oxygen Delivery Mechanical Ventilation Fraction of Inspired Oxygen 50 50 02/07/25 04:00 02/07/25 04:00 02/07/25 04:00 Temperature Pulse Rate 59 L 59 L 59 L Respiratory Rate 21 H 21 H Blood Pressure 103/57 L Pulse Oximetry Oxygen Delivery Fraction of Inspired Oxygen 02/07/25 04:00 02/07/25 04:00 02/07/25 04:30 Temperature Pulse Rate 59 L 59 L 58 L Respiratory Rate 21 H Blood Pressure 106/59 L Pulse Oximetry Oxygen Delivery Fraction of Inspired Oxygen 02/07/25 04:48 02/07/25 06:00 02/07/25 06:00 Temperature 37.1 C Pulse Rate 57 L 57 L 56 L Respiratory Rate 21 H 21 H Blood Pressure 91/56 L Pulse Oximetry 95 93 Oxygen Delivery Mechanical Ventilation Fraction of Inspired Oxygen 50 02/07/25 06:00 02/07/25 06:00 02/07/25 06:00 Temperature Pulse Rate 56 L 56 L 56 L Respiratory Rate 21 H 21 H Blood Pressure 91/56 L Pulse Oximetry Oxygen Delivery Fraction of Inspired Oxygen 02/07/25 06:00 02/07/25 08:00 02/07/25 08:00 Temperature 37.1 C Pulse Rate 56 L 57 L Respiratory Rate 18 Blood Pressure 85/63 L Pulse Oximetry 95 Oxygen Delivery Fraction of Inspired Oxygen 50 02/07/25 08:00 02/07/25 08:00 02/07/25 08:00 Temperature Pulse Rate 67 67 67 Respiratory Rate 16 16 16 Blood Pressure Pulse Oximetry Oxygen Delivery Fraction of Inspired Oxygen 02/07/25 08:00 02/07/25 08:03 02/07/25 08:05 Temperature Pulse Rate 57 L 71 Respiratory Rate 19 Blood Pressure Pulse Oximetry 94 Oxygen Delivery Mechanical Ventilation Mechanical Ventilation Fraction of Inspired Oxygen 70 50 02/07/25 08:19 02/07/25 08:27 02/07/25 08:27 Temperature Pulse Rate 70 69 Respiratory Rate 19 Blood Pressure 85/63 L Pulse Oximetry Oxygen Delivery Fraction of Inspired Oxygen 70 02/07/25 09:23 02/07/25 10:00 02/07/25 11:06 Temperature 37.1 C Pulse Rate 73 Respiratory Rate 23 H Blood Pressure 113/67 Pulse Oximetry 98 Oxygen Delivery Mechanical Ventilation Mechanical Ventilation Fraction of Inspired Oxygen 70 70 02/07/25 12:00 02/07/25 12:00 02/07/25 12:00 Temperature Pulse Rate 66 66 Respiratory Rate 18 18 Blood Pressure Pulse Oximetry Oxygen Delivery Mechanical Ventilation Fraction of Inspired Oxygen 70 02/07/25 12:33 02/07/25 12:52 02/07/25 14:10 Temperature Pulse Rate 66 67 70 Respiratory Rate 21 H Blood Pressure 82/69 L Pulse Oximetry 94 Oxygen Delivery Mechanical Ventilation Fraction of Inspired Oxygen 70 02/07/25 14:13 Temperature Pulse Rate 76 Respiratory Rate Blood Pressure Pulse Oximetry 100 Oxygen Delivery Mechanical Ventilation Fraction of Inspired Oxygen 70 Intake/Output Intake/Output: Intake & Output 02/04/25 02/05/25 02/06/25 02/07/25 23:59 23:59 23:59 23:59 Intake Total 3305.6 2695.2 2166.0 1544.4 Output Total 1100 625 650 400 Balance 2205.6 2070.2 1516.0 1144.4 Meds/Results Medications: Active Medications Generic Name Dose Route Start Last Admin Trade Name Freq PRN Reason Stop Dose Admin Acetaminophen 650 mg 02/01/25 14:06 02/01/25 15:42 Acetaminophen 650 Mg Suppository RECTAL 650 mg Q6H PRN Administration Mild Pain (1-3) or Fever Acetylcysteine 200 mg 02/01/25 14:00 02/07/25 14:09 Acetylcysteine 20% Inhal Soln 800 Mg/4 Ml Vial INHALATION 200 mg Q6HRT TATYANA Administration Albuterol/Ipratropium 3 ml 01/30/25 14:00 02/07/25 14:09 Ipratropium 0.5 Mg/Albuterol Sulfate 2.5 Mg Ampul.Neb 3 Ml INHALATION 3 ml Q6HRT TATYANA Administration Alteplase, Recombinant 2 mg 02/02/25 10:10 Alteplase 2 Mg Vial (Cathflo) IV PUSH ONCE PRN Line Occlusion Dextrose 12.5 gm 02/02/25 10:13 Dextrose 50% 25 Gm/50 Ml Syringe IV PUSH PRN PRN Hypoglycemia Protocol Glucagon 1 mg 02/02/25 10:13 Glucagon For Inj 1 Mg Vial IM PRN PRN Hypoglycemia Protocol Glucose 15 gm 02/02/25 10:13 Glucose Oral Gel 15 Gm Of Glucse In 37.5 Gm Tube PO PRN PRN Hypoglycemia Protocol Multivitamins 1.25 ml/ 1,002.5 mls @ 50 mls/hr 02/02/25 14:00 02/07/25 08:31 Multivitamins 1.25 ml/ Amino IV CONT 50 mls/hr Acids/Dextrose .Q20H3M TATYANA Administration Protocol Dextrose 1,000 mls @ 50 mls/hr 02/02/25 10:12 Dextrose 10% IV CONT .Q20H PRN if PN is interrupted Fat Emulsion Intravenous 250 mls @ 20.833 mls/hr 02/02/25 14:00 02/07/25 14:11 Lipids 20% IVPB 20.8 mls/hr Q24H TATYANA Administration Dextrose 1,000 mls @ 100 mls/hr 02/02/25 10:13 Dextrose 5% 1,000 Ml IVPB PRN PRN Hypoglycemia Protocol Midazolam HCl 100 mg in 100 mls @ 9 mls/hr 02/04/25 21:25 02/07/25 12:00 Versed 100 Mg/Ns 100 Ml IV CONT 5 mg/hr .Q11H7M TATYANA 5 mls/hr Administration Protocol 9 MG/HR Norepinephrine Bitartrate 8 mg in 250 mls @ 9.375 mls/hr 02/04/25 22:15 02/07/25 12:33 Levophed 8 Mg/D5w 250 Ml IV CONT 5 mcg/min .Q24H TATYANA 9.38 mls/hr Titration Protocol 5 MCG/MIN Meropenem 1 gm/ Sodium 100 mls @ 200 mls/hr 02/05/25 13:30 02/07/25 14:03 Chloride IVPB 200 mls/hr Q8HR TATYANA Administration Fentanyl Citrate 2,500 mcg in 250 mls @ 5 mls/hr 02/06/25 23:05 02/07/25 08:00 Fentanyl 2,500 Mcg/Ns 250 Ml IV CONT 50 mcg/hr .Q50H TATYANA 5 mls/hr Titration Protocol 50 MCG/HR Lactated Ringer's 1,000 mls @ 100 mls/hr 02/07/25 13:35 02/07/25 14:05 Lr - Lactated Ringers Iv IV CONT 02/07/25 23:34 100 mls/hr .Q10H TATYANA Administration Insulin Aspart 2 - 5 units 02/02/25 12:00 02/07/25 12:54 Insulin Aspart (*Bkc) 100 Units/Ml SUB-Q Not Given Q6HR TATYANA Protocol Lactulose 20 gm 02/07/25 13:00 02/07/25 14:10 Lactulose 20 Gm/30 Ml Udc PO 20 gm QAM TATYANA Administration Multi-Ingred Cream/Lotion/Oil/Oint 1 applic 01/28/25 09:15 02/07/25 08:32 Mineral Oil/White Petrolatum Ointment EACH EYE 1 applic Q12HR TATYANA Administration Ondansetron HCl 4 mg 01/28/25 01:51 Ondansetron Inj 4 Mg/2 Ml Vial IV PUSH Q4H PRN Nausea Pantoprazole Sodium 40 mg 02/05/25 09:00 02/07/25 08:37 Pantoprazole Sodium Iv 40 Mg Vial IV PUSH 40 mg QAM TATYANA Administration Sodium Chloride 10 ml 01/28/25 14:00 02/07/25 14:10 Central Line Flush IV PUSH 10 ml Q8HR TATYANA Administration Sodium Chloride 20 ml 01/28/25 06:37 Central Line Flush IV PUSH PRN PRN after blood draws Radiology Results: ITS Impressions Abdomen/Pelvis CTA 01/28/25 00:08 IMPRESSION: Findings within the liver for which malignancy is suspected. Additional findings within the rectum for which acute hemorrhage is suspected (likely secondary to anorectal varices). No findings to suggest upper GI bleeding. 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 Incidental notation is made of cholelithiasis. Head CT 02/02/25 13:34 IMPRESSION: 1. No acute intracranial process. 2. Stable age-related changes including mild diffuse volume loss and mild scattered white matter hypoattenuation consistent with chronic small vessel ischemic disease. Chest/Abdomen/Pelvis CT 02/05/25 10:13 IMPRESSION: 1. Tiny left-sided pleural effusion. Small right-sided pleural effusion. 2. Moderate to large groundglass and patchy opacities scattered throughout both lungs. Differential is broad and includes but is not limited to edema or pneumonia. Recommend follow-up to resolution. 3. Moderate-sized consolidations in the lower lobes, larger on the right, with air bronchograms. Recommend follow-up to resolution. 4.The liver is heterogeneous. Micronodular appearance to the surface of the liver. There is a 2.4 cm low-density lesion in the posterior segment of the right lobe of the liver. A liver mass MRI is recommended. Evaluation of the liver is significantly limited due to artifact. 5. Moderate amount of nonspecific fat stranding and ascites scattered throughout the abdomen and pelvis. 6. Cholelithiasis. Chest X-Ray 02/07/25 07:12 IMPRESSION: 1. Persistent patchy airspace opacities throughout both lungs consistent with pneumonia, pulmonary edema, acute respiratory distress syndrome or some combination thereof. Abdomen X-Ray 02/07/25 10:42 IMPRESSION: 1. Diffuse opacification of the abdomen without significant bowel gas, likely attributable to ascites. Study limited by patient body habitus. 2: Bibasilar airspace disease may represent edema or pneumonia. Labs Labs: Laboratory Results - last 24 hr 02/06/25 02/07/25 02/07/25 17:59 00:54 04:47 WBC RBC Hgb Hct MCV MCH MCHC RDW Plt Count MPV Puncture Site Left radial ABG pH 7.329 L ABG pCO2 34.0 L ABG pO2 64.6 L ABG PO2/FiO2 Ratio 1.29 ABG HCO3 17.5 L ABG O2 Saturation 91.5 L ABG O2 Content 14.2 L ABG Base Excess -7.6 A-a Gradient 253.7 Oxyhemoglobin 90.7 Carboxyhemoglobin 0.6 Methemoglobin 0.1 Reduced Hemoglobin 8.6 H Total Hemoglobin 11.1 L O2 Delivery Device Ventilator O2 Liters/Min Not Reportable Minute Volume Not Reportable Vent Rate 16 Vent Mode Assist control FiO2 50 Tidal Volume 400 PEEP Not Reportable Peak Inspir Pressure Not Reportable Pressure Support Not Reportable Sodium Potassium Chloride Carbon Dioxide Anion Gap BUN Creatinine Estim Creat Clear Calc Estimated GFR Glucose POC Capillary Glucose 167 H 186 H Lactic Acid Calcium Phosphorus Magnesium Ammonia Triglycerides 02/07/25 02/07/25 02/07/25 05:55 06:05 09:41 WBC 18.1 H RBC 2.92 L Hgb 10.0 L Hct 31.2 L MCV 106.8 H MCH 34.2 H MCHC 32.1 RDW 22.6 H Plt Count 162 MPV 10.1 Puncture Site ABG pH ABG pCO2 ABG pO2 ABG PO2/FiO2 Ratio ABG HCO3 ABG O2 Saturation ABG O2 Content ABG Base Excess A-a Gradient Oxyhemoglobin Carboxyhemoglobin Methemoglobin Reduced Hemoglobin Total Hemoglobin O2 Delivery Device O2 Liters/Min Minute Volume Vent Rate Vent Mode FiO2 Tidal Volume PEEP Peak Inspir Pressure Pressure Support Sodium 140 Potassium 3.7 Chloride 114 H Carbon Dioxide 18 L Anion Gap 8 BUN 54 H Creatinine 1.26 H 1.32 H Estim Creat Clear Calc 70 65 Estimated GFR 43 L 41 L Glucose 159 H POC Capillary Glucose 171 H Lactic Acid 1.5 Calcium 9.2 Phosphorus 2.9 3.0 Magnesium 1.7 Ammonia 22 Triglycerides 113 02/07/25 11:33 WBC RBC Hgb Hct MCV MCH MCHC RDW Plt Count MPV Puncture Site ABG pH ABG pCO2 ABG pO2 ABG PO2/FiO2 Ratio ABG HCO3 ABG O2 Saturation ABG O2 Content ABG Base Excess A-a Gradient Oxyhemoglobin Carboxyhemoglobin Methemoglobin Reduced Hemoglobin Total Hemoglobin O2 Delivery Device O2 Liters/Min Minute Volume Vent Rate Vent Mode FiO2 Tidal Volume PEEP Peak Inspir Pressure Pressure Support Sodium Potassium Chloride Carbon Dioxide Anion Gap BUN Creatinine Estim Creat Clear Calc Estimated GFR Glucose POC Capillary Glucose 159 H Lactic Acid Calcium Phosphorus Magnesium Ammonia Triglycerides Quality VTE Prophylaxis VTE prophylaxis: mechanical ordered
[2025-02-07 14:55] LABS: Triglycerides 144 mg/dL (<150)
[2025-02-08] VITALS (44 sets, daily range): BP systolic 90–124; BP diastolic 58–72; PULSE 67–124; RESP 11–25; TEMP 35.4–36.6; O2SAT 94–98
[2025-02-08] MEDS: INSULIN ASPART (*BKC) 100 UNITS/ML SUB-Q ×4 (01:08→18:27)
[2025-02-08] MEDS: IPRATROPIUM 0.5 MG/ALBUTEROL SULFATE 2.5 MG AMPUL.NEB 3 ML INHALATION ×4 (02:15→19:47)
[2025-02-08] MEDS: ACETYLCYSTEINE 20% INHAL SOLN 800 MG/4 ML VIAL 200 MG INHALATION ×4 (02:16→19:47)
[2025-02-08] MEDS: NOREPINEPHRINE 8 MG/D5W 250 ML 8 MG/250 ML BAG 1.88 MG IV CONT (04:10)
[2025-02-08 04:45] LABS: Alveolar/Arterial O2 Gradient 241.9 mmHg; Carboxyhemoglobin 0.3 % THb (0-2.0); Fractional Inspired Oxygen 50 %; HCO3 ABG 15.8 mEq/l (22.0-26.0); Methemoglobin ABG 0.2 %THb (0-1.5); Oxygen Content ABG 14.5 %vol (16.0-22.0); Oxygen Saturation ABG 89.5 % (95.0-100.0); PCO2 ABG 41.3 mmHg (35.0-45.0); PO2 ABG 68.1 mmHg (80.0-100.0); PO2 FiO2 Ratio Arterial Blood 1.36 %; Reduced Hemoglobin 9.2 %THb (0-5.0)
[2025-02-08 04:49] LABS: Arterial Blood Gas Tidal Volume 400 ml; Arterial Blood Gas Ventilator rate 18 /MIN; Modified Allen's Test Pass; Site Drawn LEFT RADIAL
[2025-02-08] MEDS: MEROPENEM 1 GM in SODIUM CHLORIDE 0.9% IV 100 ML 200 ML IVPB (05:10)
[2025-02-08] MEDS: CENTRAL LINE FLUSH 10 ML IV PUSH ×3 (05:11→21:04)
[2025-02-08 05:12] LABS: Hematocrit 31.3 % (37.0-47.0); Hemoglobin 9.9 g/dL (12.0-15.0); Immature Granulocyte Percent A 5.3 % (0-0.5); Lymphocytes Absolute Auto 0.81 K/mm3 (0.9-3.2); Mean Corpuscular HGB Conc 31.6 g/dl (32-36); Mean Corpuscular Hemoglobin 35.0 pg (26-34); Mean Corpuscular Volume 110.6 fl (80-100); Nucleated Red Blood Cells Absolute Auto 0.040 K/mm3 (0.0-0.012); Nucleated Red Blood Cells Perc 0.2 % (0.0-0.2); Platelet Count Result 159 k/mm3 (150-375); Red Blood Count 2.83 M/mm3 (4.2-5.4); White Blood Count 18.4 K/mm3 (4.5-10.0)
[2025-02-08 05:21] LABS: Ammonia 58 umol/L (9-30)
[2025-02-08 05:33] LABS: Alanine Aminotransferase 48 U/L (6-35); Albumin Level 2.7 g/dL (3.5-5.1); Alkaline Phosphatase 96 U/L (38-126); Anion Gap 10 mmol/L (4-12); Aspartate Amino Transferase 174 U/L (14-36); Bilirubin,Total 5.2 mg/dL (0.2-1.3); Blood Urea Nitrogen 63 mg/dL (7-17); Calcium 9.2 mg/dL (8.4-10.2); Carbon Dioxide 16 mmol/L (22-30); Chloride 112 mmol/L (98-107); Estimated CRCL calculation 53 ml/min; Estimated Glomerular Filt Rate 32; Glucose 304 mg/dL (65-110); Potassium 4.2 mmol/L (3.4-5.0); Sodium 138 mmol/L (137-145); Total Protein 6.4 g/dL (6.3-8.2)
[2025-02-08 05:43] LABS: Anisocytosis 2+; Schistocytes None Seen
[2025-02-08 05:44] LABS: Macrocytosis 1+ (NORMAL)
[2025-02-08] MEDS: AMINO ACIDS 5%/DEXTROSE 15% 1,000 ML with MULTIVITAMINS-12 INJ VIAL 1 1.25 ML, MULTIVIT... 50 ML IV CONT (06:37)
[2025-02-08] MEDS: MIDAZOLAM 100MG/NS 100ML(*CRX) 100 MG/100 ML BAG IV CONT (07:50)
[2025-02-08] MEDS: SODIUM BICARBONATE 8.4% 50 MEQ/50 ML SYRINGE IV PUSH ×2 (07:53→20:49)
[2025-02-08] MEDS: LACTULOSE 20 GM/30 ML UDC PO (07:53)
[2025-02-08] MEDS: LACTATED RINGERS 1,000 ML 999 ML IV CONT ×2 (07:53→11:05)
[2025-02-08] MEDS: PANTOPRAZOLE SODIUM IV 40 MG VIAL IV PUSH (09:00)
[2025-02-08] MEDS: SODIUM BICARBONATE 8.4% 150 MEQ in WATER, STERILE FOR INJECTION 950 ML 75 MEQ IV CONT (09:01)
[2025-02-08] MEDS: MINERAL OIL/WHITE PETROLATUM OINTMENT 1 APPLIC EACH EYE ×2 (09:01→21:14)
--- NOTE | 2025-02-08 09:08 | P.PNINT_ITS ---
Progress Note: A&P Assessment and Plan (1) Airway compromise: Code(s): J98.8 - Other specified respiratory disorders Status: Acute Assessment and Plan: Patient encephalopathic with elevated ammonia level, not protecting her airway, also intubated for aspiration prevention and for EGD -01/28: Intubated patient for airway protection due to encephalopathy -currently on CMV mode of ventilation, -chest x-ray and ABGs reviewed, maintain O2 sats > 92%, ventilator adjusted, increase PEEP to 12 given her body habitus and 70% FiO2 02/01: Patient continues to have thick ETT secretions, continue Mucomyst nebs, status post Pulmozyme 02/02: Patient spiked fevers, continues to have thick ETT secretions, borderline blood pressure, started patient on cefepime and vancomycin (02/02) 02/02: Blood cultures: No growth x2 02/02: Sputum culture: ESBL E coli 02/04: Lasix 40 mg IV x1 -02/05: Switched cefepime to meropenem (02/05) -02/06: Discontinued vancomycin -02/07: Developed rash on her face, likely related to meropenem, will discontinue meropenem and start Avycaz and will give 1 dose of gentamicin -CT scan of the chest abdomen and pelvis: IMPRESSION: 1. Tiny left-sided pleural effusion. Small right-sided pleural effusion. 2. Moderate to large ground glass and patchy opacities scattered throughout both lungs. Differential is broad and includes but is not limited to edema or pneumonia. Recommend follow-up to resolution. 3. Moderate-sized consolidations in the lower lobes, larger on the right, with air bronchograms. Recommend follow-up to resolution. 4.The liver is heterogeneous. Micronodular appearance to the surface of the liver. There is a 2.4 cm low-density lesion in the posterior segment of the right lobe of the liver. A liver mass MRI is recommended. Evaluation of the liver is significantly limited due to artifact. 5. Moderate amount of nonspecific fat stranding and ascites scattered throughout the abdomen and pelvis. 6. Cholelithiasis. (2) Septic shock: Code(s): A41.9 - Sepsis, unspecified organism; R65.21 - Severe sepsis with septic shock Status: Acute Assessment and Plan: Patient with ESBL E coli pneumonia on sputum culture -low blood pressures likely related to sepsis/shock -continue Levophed,, maintain MAP > 65 mmHg or SBP > 100 mmHg at all times for adequate end organ perfusion -antibiotics as above -02/08: decreased urine output with worsening renal function, elevated lactic acidosis, elevated WBC count,, currently in septic shock. Changing antibiotics to Avycaz in 1 dose of gentamicin for the ESBL E. coli in sputum. Will bolus with LR, will start sodium bicarb infusion at (3) Pneumonia: Code(s): J18.9 - Pneumonia, unspecified organism Status: Acute Assessment and Plan: 02/02: Chest x-ray with worsening infiltrates, thick cream to yellow colored secretion -sputum cultures as above -continue antibiotics as above (4) Encephalopathy: Qualifiers: Encephalopathy type: metabolic Qualified Code(s): G93.41 - Metabolic encephalopathy Code(s): G93.40 - Encephalopathy, unspecified Status: Acute Assessment and Plan: Multifactorial, initially thought to be secondary to hyperammonemia, liver dysfunction,, shock -patient did receive lactulose enema on 01/31/2025, good bowel movements x2 Ammonia levels have normalized Continue to monitor -anisocoria, CT scan of the brain 01/28/2025 with no significant abnormality seen -continues to be encephalopathic -02/02/2025, repeat CT scan of the brain with no acute intracranial process, chronic small vessel ischemic disease -appreciate Neurology evaluation, -02/04: EEG: Abnormal record due to the absence of the normal background rhythm and due to the presence of bihemispheric slow activity. These findings are suggestive of organic or metabolic encephalopathy or postictal state. Clinical correlation recommended. This tracing is not compatible with electrocerebral silence. 02/04: Patient did open her eyes and tracked, followed commands with lower extremities 02/05: required increasing sedation overnight due to hypoxia and worsening chest x-ray (5) Hemorrhagic shock: Code(s): R57.8 - Other shock Status: Acute Assessment and Plan: RESOLVED Pt presented with rectal bleed, CT showed esophageal and rectal varices. -Transfused 2 units unmatched PRBC in the ER -hemoglobin this morning is 9.3, platelets 186 -01/28: INR 1.6, will give vitamin K -01/28: Transfused 1 unit of FFP and 1 unit of packed RBC -01/30: 1 unit of FFP and 1 unit of packed RBCs were transfused 02/05: Hypoxia, hypotension, Levophed was restarted,, maintain MAP > 65 mm Hg at all times for adequate end organ perfusion, continue antibiotics as above -01/29: Hb 7.3, INR 1.8 this morning. Transfused 1 unit of FFP and 1 unit of packed RBC, will also repeat vitamin K IVPB -01/30: Hemoglobin remained stable, decreased NG output. Discussed with GI, will continue octreotide. Discontinued Protonix infusion and IV Protonix -01/31: Hemoglobin is 9.7 this morning and stable, NG was removed 01/30 with EGD. Will continue octreotide per GI -02/01: Hemoglobin 10.1 this morning in stable, patient remains on octreotide infusion -04/04: Hemoglobin 10.4 and stable, patient remains on octreotide infusion per GI -02/03: Hemoglobin remained stable at 9.0 -02/04: Hemoglobin 9.5 and stable 01/28: CTA scan of the abdomen and pelvis: Findings within the liver for which malignancy is suspected. Additional findings within the rectum for which acute hemorrhage is suspected (likely secondary to anorectal varices). No findings to suggest upper GI bleeding. 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 Incidental notation is made of cholelithiasis. (6) Esophageal varices: Qualifiers: Esophageal varices bleeding: with bleeding Esophageal varices type: unspecified type Qualified Code(s): I85.01 - Esophageal varices with bleeding Code(s): I85.00 - Esophageal varices without bleeding Status: Acute Assessment and Plan: Esophageal varices as seen on CTA abdomen and pelvis. -appreciate GI evaluation -01/28: EGD: Showed actively bleeding gastric varix at the gastric cardia, a band ligation device was used to place 1 band, moderate gastritis was seen in the stomach. The gastric has a moderate portal hypertensive change. Large amount of blood was seen in the distal esophagus and the stomach the bowel and the 2nd portion of duodenum was normal with no ulcers or masses 01/30: Repeat EGD: Showed medium grade 3 varices (large varices almost occluding the esophageal lumen were present in the distal esophagus. There was no evidence of bleeding bleeding corresponding to the previous band. To more bands were placed. There was a large fundal pool of blood in the stomach. The bulb and the 2nd portion of duodenum was normal Appreciate GI following the patient, discussed with GI, -OFF octreotide infusion (7) Rectal varices: Code(s): K64.9 - Unspecified hemorrhoids Status: Acute Assessment and Plan: Likely related to alcoholic cirrhosis, (8) Alcoholic cirrhosis of liver with ascites: Code(s): K70.31 - Alcoholic cirrhosis of liver with ascites Status: Acute Assessment and Plan: History of alcoholic cirrhosis -LFTs and bilirubin elevated but stable -could be related to shock liver, cirrhosis, bleeding -status post ceftriaxone (01/28) for SBP prophylaxis -continue to monitor LFTs and bilirubin -INR elevated, status post vitamin K and FFP, INR is stable -continue to monitor -02/04: INR 1.7, vitamin K 10 mg IV piggyback x1 02/08: Elevated ammonia level, started lactulose and rifaximin, now that she has a Dobbhoff tube, will monitor ammonia levels (9) Acute kidney injury: Code(s): N17.9 - Acute kidney failure, unspecified Status: Acute Assessment and Plan: Acute kidney injury, likely related to hemorrhagic shock -low urine output, -02/06: Creatinine is trending to increase with septic shock likely related to ESBL E coli pneumonia -will maintain adequate SBP and MAP for adequate renal perfusion -maintain adequate MAP and SBP -continue to monitor urine output, renal function electrolytes 02/08: Worsening creatinine, decreased urine output. Will give additional IV fluid bolus and start bicarb infusion (10) Abnormal CT of liver: Code(s): R93.2 - Abnormal findings on diagnostic imaging of liver and biliary tract Status: Acute Assessment and Plan: CT abdomen and pelvis as above: Suspicious for malignancy -AFP significantly elevated to 83,546 (0.0-9.2) -GI is following the patient: Recommended may need MRI liver protocol when more stable and extubated Plan DVT prophylaxis: SCDs, no chemoprophylaxis due to hemorrhagic shock and GI bleed Stress ulcer prophylaxis: Protonix IV daily Nutrition: TPN started on 02/02, 02/06: Patient tolerated tube feeds at 20 mL/hour, will increase gradually today to 30 and then 40 mL/hour . Will discontinue TPN once tube feeds at 40 mL/hour Code Status: DNR Critical Care Time Spent: 34 minutes Will update family 02/01: Discussed at length with patient's sister Jinny, she wants to be the decision maker, appreciate Allison from care coordination discussed with Jinny and patient's daughter Modesta. Modesta agreed the Jinny to be the surrogate decision maker. They also agree to make her a do not resuscitate, orders for DNR when placed in the chart. I answered all the questions 01/31: Discussed with Modesta Stearns, patient's daughter at [phone], updated the daughter with patient's condition from the time she came to the hospital until today. She is aware that patient is not waking up despite being off sedation likely related to hepatic encephalopathy. I updated her with the repeat EGD that was done yesterday and that the patient has received multiple blood products. I also discussed with her code status to which the daughter stated she wanted her to be a full code. She did not have any other questions. 01/30: Discussed with Jinny Cabezas, patient's sister and updated her with patient's condition and plan of care. She stated that the patient has a daughter with anemia of Modesta Stearns, she was supposed to contact the daughter and I asked to give me a call. Will try to locate daughter's number and will give her a call and explain to her patient's condition/situation and recommendations of the hydroelectric production manager. Due to a high probability of clinically significant, life threatening deterioration, the patient required my highest level of preparedness to interv chari emergently and I personally spent this critical care time directly and personally managing the patient. This critical care time included obtaining a history; examining the patient; pulse oximetry; ordering and review of studies; arranging urgent treatment with development of a management plan; evaluation of patient's response to treatment; frequent reassessment; and discussions with other providers. It was exclusive of separately billable procedures and treating other patients and teaching time. Please see Assessment and Plan section and the rest of the note for further information on patient assessment and treatment This dictation may have been done utilizing a voice recognition system. Attempts have been made to correct errors. However, there may be uncorrected grammatical, spelling, and recognitions errors present. Subjective Date/time seen: 02/08/25 09:08 Interval history: Reason for consult: GI bleed, Esophageal and rectal varices, shock, altered mental status, anisocoria, unable to protect her airway, intubated and on mechanical ventilator, hyperkalemia, acute renal failure, elevated LFTs 01/28: EGD: Showed actively bleeding gastric varix at the gastric cardia, a band ligation device was used to place 1 band, moderate gastritis was seen in the stomach. The gastric has a moderate portal hypertensive change. Large amount of blood was seen in the distal esophagus and the stomach the bowel and the 2nd portion of duodenum was normal with no ulcers or masses 01/30: Repeat EGD: Showed medium grade 3 varices (large varices almost occluding the esophageal lumen were present in the distal esophagus. There was no evidence of bleeding bleeding corresponding to the previous band. To more bands were placed. There was a large fundal pool of blood in the stomach. The bulb and the 2nd portion of duodenum was normal 02/07: Dobbhoff tube placed by IR 02/08/2025: Patient seen and examined the ICU, remains intubated on CMV mode of ventilation, peep of 12, 50% FiO2. Remains on Versed and fentanyl infusion. Does not open eyes or follow simple commands. Low urine output, afebrile. Remains on Levophed 1-2 mcg/min. Worsening creatinine, elevated WBC, elevated lactic acid. Increasing bilirubin along with LFTs. Ammonia level is 58 Tolerating tube feeds Review of Systems Review of Systems: ROS unobtainable: Yes unobtainable due to endotracheal tube, unobtainable due to medical condition and unobtainable due to mental status Exam Narrative: General: Patient is intubated and sedated in no acute distress HEENT:? Pupils unequal, R>L, but reactive, sclera is icteric, facial rash, blanchable, erythematous, maculopapular up to the neck Neck:? supple Respiratory:? Coarse breath sounds bilaterally, decreased at bases, no wheezing noted this more, adequate air entry Cardiac:? S1 S2 normal, regular rate and rhythm Abdomen:? soft, nontender, non distended, morbidly obese, very hypoactive bowel sounds Extremities:?b/l edema of lower extremities, palpable pedal pulses Neuro:? Patient is intubated fentanyl and Versed infusion, does not open her eyes or follow simple commands, does not withdraw to pain Skin:? Feet are warm today Psych:? unable to assess Objective Data Vital Signs Vital Signs: Vital Signs - 24 hr 08/16/25 09:23 02/07/25 10:00 02/07/25 10:00 Temperature 98.7 F Pulse Rate 73 71 Respiratory Rate 23 H Blood Pressure 113/67 113/67 Pulse Oximetry 98 Oxygen Delivery Mechanical Ventilation Fraction of Inspired Oxygen 70 02/07/25 10:00 02/07/25 10:00 02/07/25 10:00 Temperature Pulse Rate 71 71 71 Respiratory Rate 22 H 22 H Blood Pressure Pulse Oximetry Oxygen Delivery Fraction of Inspired Oxygen 02/07/25 11:06 02/07/25 12:00 02/07/25 12:00 Temperature Pulse Rate 66 66 Respiratory Rate 18 18 Blood Pressure Pulse Oximetry Oxygen Delivery Mechanical Ventilation Fraction of Inspired Oxygen 70 02/07/25 12:00 02/07/25 12:00 02/07/25 12:00 Temperature Pulse Rate 66 Respiratory Rate Blood Pressure 100/67 Pulse Oximetry Oxygen Delivery Mechanical Ventilation Fraction of Inspired Oxygen 70 70 02/07/25 12:00 02/07/25 12:00 02/07/25 12:33 Temperature Pulse Rate 66 64 66 Respiratory Rate 18 Blood Pressure 82/69 L Pulse Oximetry Oxygen Delivery Fraction of Inspired Oxygen 02/07/25 12:52 02/07/25 14:00 02/07/25 14:00 Temperature 99.1 F 99.1 F Pulse Rate 67 70 79 Respiratory Rate 20 18 Blood Pressure 143/92 H 143/92 H Pulse Oximetry 94 100 99 Oxygen Delivery Mechanical Ventilation Fraction of Inspired Oxygen 70 02/07/25 14:00 02/07/25 14:00 02/07/25 14:00 Temperature Pulse Rate 70 71 70 Respiratory Rate 20 20 Blood Pressure 143/92 H Pulse Oximetry Oxygen Delivery Fraction of Inspired Oxygen 02/07/25 14:00 02/07/25 14:10 02/07/25 14:13 Temperature Pulse Rate 70 70 76 Respiratory Rate 21 H Blood Pressure Pulse Oximetry 100 Oxygen Delivery Mechanical Ventilation Fraction of Inspired Oxygen 70 02/07/25 14:19 02/07/25 16:00 02/07/25 16:00 Temperature 99.0 F Pulse Rate 78 70 Respiratory Rate 20 17 Blood Pressure 113/67 Pulse Oximetry 100 Oxygen Delivery Mechanical Ventilation Fraction of Inspired Oxygen 60 02/07/25 16:00 02/07/25 16:00 02/07/25 16:00 Temperature Pulse Rate 70 70 Respiratory Rate Blood Pressure 113/67 Pulse Oximetry Oxygen Delivery Fraction of Inspired Oxygen 60 02/07/25 16:00 02/07/25 16:00 02/07/25 16:41 Temperature Pulse Rate 70 70 74 Respiratory Rate 18 18 Blood Pressure Pulse Oximetry 97 Oxygen Delivery Mechanical Ventilation Fraction of Inspired Oxygen 60 02/07/25 18:00 02/07/25 18:00 02/07/25 18:00 Temperature 98.7 F Pulse Rate 64 63 63 Respiratory Rate 18 Blood Pressure 98/70 L 98/70 L Pulse Oximetry 96 Oxygen Delivery Fraction of Inspired Oxygen 02/07/25 18:00 02/07/25 18:00 02/07/25 20:00 Temperature 98.3 F Pulse Rate 63 63 65 Respiratory Rate 18 18 14 Blood Pressure 110/72 Pulse Oximetry 99 Oxygen Delivery Fraction of Inspired Oxygen 02/07/25 20:00 02/07/25 20:00 02/07/25 20:00 Temperature Pulse Rate 63 Respiratory Rate Blood Pressure Pulse Oximetry Oxygen Delivery Mechanical Ventilation Fraction of Inspired Oxygen 60 02/07/25 20:00 02/07/25 20:00 02/07/25 20:44 Temperature Pulse Rate 63 63 62 Respiratory Rate 18 18 21 H Blood Pressure Pulse Oximetry Oxygen Delivery Fraction of Inspired Oxygen 02/07/25 20:45 02/07/25 21:00 02/07/25 21:20 Temperature Pulse Rate 62 67 82 Respiratory Rate 21 H Blood Pressure 110/72 Pulse Oximetry 98 Oxygen Delivery Mechanical Ventilation Fraction of Inspired Oxygen 60 02/07/25 22:00 02/07/25 22:00 02/07/25 22:00 Temperature 98.0 F Pulse Rate 71 71 71 Respiratory Rate 13 18 Blood Pressure 105/63 Pulse Oximetry 95 Oxygen Delivery Fraction of Inspired Oxygen 02/07/25 22:00 02/07/25 23:30 02/07/25 23:30 Temperature Pulse Rate 71 69 Respiratory Rate 18 Blood Pressure Pulse Oximetry 96 Oxygen Delivery Mechanical Ventilation Fraction of Inspired Oxygen 60 60 02/08/25 00:00 02/08/25 00:00 02/08/25 00:00 Temperature 97.5 F L Pulse Rate 71 67 Respiratory Rate 11 L Blood Pressure 111/67 Pulse Oximetry 95 Oxygen Delivery Mechanical Ventilation Fraction of Inspired Oxygen 02/08/25 00:00 02/08/25 00:00 02/08/25 00:30 Temperature Pulse Rate 69 69 68 Respiratory Rate 18 18 Blood Pressure 90/68 L Pulse Oximetry Oxygen Delivery Fraction of Inspired Oxygen 02/08/25 02:00 02/08/25 02:00 02/08/25 02:00 Temperature 97.3 F L Pulse Rate 84 70 84 Respiratory Rate 11 L Blood Pressure 111/68 111/66 Pulse Oximetry 98 Oxygen Delivery Fraction of Inspired Oxygen 02/08/25 02:00 02/08/25 02:00 02/08/25 02:18 Temperature Pulse Rate 71 71 71 Respiratory Rate 18 18 18 Blood Pressure Pulse Oximetry Oxygen Delivery Fraction of Inspired Oxygen 02/08/25 02:19 02/08/25 02:33 02/08/25 04:00 Temperature 97.1 F L Pulse Rate 71 77 82 Respiratory Rate 18 16 Blood Pressure 118/72 Pulse Oximetry 98 97 Oxygen Delivery Mechanical Ventilation Fraction of Inspired Oxygen 55 02/08/25 04:00 02/08/25 04:00 02/08/25 04:00 Temperature Pulse Rate 91 Respiratory Rate Blood Pressure Pulse Oximetry Oxygen Delivery Mechanical Ventilation Fraction of Inspired Oxygen 50 50 02/08/25 04:10 02/08/25 04:10 02/08/25 04:52 Temperature Pulse Rate 88 88 77 Respiratory Rate Blood Pressure 118/72 118/72 Pulse Oximetry 96 Oxygen Delivery Mechanical Ventilation Fraction of Inspired Oxygen 50 02/08/25 05:00 02/08/25 06:00 02/08/25 06:00 Temperature 96.9 F L Pulse Rate 75 73 73 Respiratory Rate 18 Blood Pressure 98/61 L 106/63 Pulse Oximetry 94 Oxygen Delivery Fraction of Inspired Oxygen 02/08/25 07:50 02/08/25 07:50 02/08/25 08:00 Temperature 96.8 F L Pulse Rate 74 74 77 Respiratory Rate 18 18 19 Blood Pressure 106/66 Pulse Oximetry 94 Oxygen Delivery Fraction of Inspired Oxygen 02/08/25 08:00 02/08/25 08:00 02/08/25 08:00 Temperature Pulse Rate 74 74 74 Respiratory Rate 18 18 Blood Pressure 106/66 Pulse Oximetry Oxygen Delivery Fraction of Inspired Oxygen 02/08/25 08:00 02/08/25 08:27 02/08/25 08:27 Temperature Pulse Rate 124 H 124 H Respiratory Rate 18 Blood Pressure Pulse Oximetry 97 Oxygen Delivery Mechanical Ventilation Fraction of Inspired Oxygen 60 60 Intake/Output Intake/Output: Intake & Output 02/05/25 02/06/25 02/07/25 02/08/25 23:59 23:59 23:59 23:59 Intake Total 2695.2 2166.0 2003.3 2771.7 Output Total 625 650 700 200 Balance 2070.2 1516.0 1303.3 2571.7 Meds/Results Medications: Active Medications Generic Name Dose Route Start Last Admin Trade Name Freq PRN Reason Stop Dose Admin Acetaminophen 650 mg 02/01/25 14:06 02/01/25 15:42 Acetaminophen 650 Mg Suppository RECTAL 650 mg Q6H PRN Administration Mild Pain (1-3) or Fever Acetylcysteine 200 mg 02/01/25 14:00 02/08/25 08:27 Acetylcysteine 20% Inhal Soln 800 Mg/4 Ml Vial INHALATION 200 mg Q6HRT TATYANA Administration Albuterol/Ipratropium 3 ml 01/30/25 14:00 02/08/25 08:27 Ipratropium 0.5 Mg/Albuterol Sulfate 2.5 Mg Ampul.Neb 3 Ml INHALATION 3 ml Q6HRT TATYANA Administration Alteplase, Recombinant 2 mg 02/02/25 10:10 Alteplase 2 Mg Vial (Cathflo) IV PUSH ONCE PRN Line Occlusion Dextrose 12.5 gm 02/02/25 10:13 Dextrose 50% 25 Gm/50 Ml Syringe IV PUSH PRN PRN Hypoglycemia Protocol Glucagon 1 mg 02/02/25 10:13 Glucagon For Inj 1 Mg Vial IM PRN PRN Hypoglycemia Protocol Glucose 15 gm 02/02/25 10:13 Glucose Oral Gel 15 Gm Of Glucse In 37.5 Gm Tube PO PRN PRN Hypoglycemia Protocol Multivitamins 1.25 ml/ 1,002.5 mls @ 50 mls/hr 02/02/25 14:00 02/08/25 06:37 Multivitamins 1.25 ml/ Amino IV CONT 50 mls/hr Acids/Dextrose .Q20H3M TATYANA Administration Protocol Dextrose 1,000 mls @ 50 mls/hr 02/02/25 10:12 Dextrose 10% IV CONT .Q20H PRN if PN is interrupted Fat Emulsion Intravenous 250 mls @ 20.833 mls/hr 02/02/25 14:00 02/08/25 02:15 Lipids 20% IVPB Infused Q24H TATYANA Infusion Dextrose 1,000 mls @ 100 mls/hr 02/02/25 10:13 Dextrose 5% 1,000 Ml IVPB PRN PRN Hypoglycemia Protocol Midazolam HCl 100 mg in 100 mls @ 4 mls/hr 02/04/25 21:25 02/08/25 08:00 Versed 100 Mg/Ns 100 Ml IV CONT 4 mg/hr .Q25H TATYANA 4 mls/hr Titration Protocol 4 MG/HR Norepinephrine Bitartrate 8 mg in 250 mls @ 1.875 mls/hr 02/04/25 22:15 02/08/25 08:00 Levophed 8 Mg/D5w 250 Ml IV CONT 1 mcg/min .Q24H TATYANA 1.88 mls/hr Titration Protocol 1 MCG/MIN Meropenem 1 gm/ Sodium 100 mls @ 200 mls/hr 02/05/25 13:30 02/08/25 05:40 Chloride IVPB Infused Q8HR TATYANA Infusion Fentanyl Citrate 2,500 mcg in 250 mls @ 5 mls/hr 02/06/25 23:05 02/08/25 08:00 Fentanyl 2,500 Mcg/Ns 250 Ml IV CONT 50 mcg/hr .Q50H TATYANA 5 mls/hr Titration Protocol 50 MCG/HR Sodium Bicarbonate 150 meq/ 1,100 mls @ 75 mls/hr 02/08/25 07:25 02/08/25 09:01 Sterile Water IV CONT 75 mls/hr .[id number] TATYANA Administration Insulin Aspart 2 - 5 units 02/02/25 12:00 02/08/25 06:29 Insulin Aspart (*Bkc) 100 Units/Ml SUB-Q 3 units Q6HR TATYANA Administration Protocol Lactulose 20 gm 02/08/25 08:00 02/08/25 07:53 Lactulose 20 Gm/30 Ml Udc PO 20 gm Q8H TATYANA Administration Multi-Ingred Cream/Lotion/Oil/Oint 1 applic 01/28/25 09:15 02/08/25 09:01 Mineral Oil/White Petrolatum Ointment EACH EYE 1 applic Q12HR TATYANA Administration Ondansetron HCl 4 mg 01/28/25 01:51 Ondansetron Inj 4 Mg/2 Ml Vial IV PUSH Q4H PRN Nausea Pantoprazole Sodium 40 mg 02/05/25 09:00 02/08/25 09:00 Pantoprazole Sodium Iv 40 Mg Vial IV PUSH 40 mg QAM TATYANA Administration Rifaximin 550 mg 02/08/25 09:00 02/08/25 09:01 Rifaximin 550 Mg Tablet PO 550 mg Q12HR TATYANA Administration Sodium Chloride 10 ml 01/28/25 14:00 02/08/25 05:11 Central Line Flush IV PUSH 10 ml Q8HR TATYANA Administration Sodium Chloride 20 ml 01/28/25 06:37 Central Line Flush IV PUSH PRN PRN after blood draws Radiology Results: ITS Impressions Abdomen/Pelvis CTA 01/28/25 00:08 IMPRESSION: Findings within the liver for which malignancy is suspected. Additional findings within the rectum for which acute hemorrhage is suspected (likely secondary to anorectal varices). No findings to suggest upper GI bleeding. 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 Incidental notation is made of cholelithiasis. Head CT 02/02/25 13:34 IMPRESSION: 1. No acute intracranial process. 2. Stable age-related changes including mild diffuse volume loss and mild scattered white matter hypoattenuation consistent with chronic small vessel ischemic disease. Chest/Abdomen/Pelvis CT 02/05/25 10:13 IMPRESSION: 1. Tiny left-sided pleural effusion. Small right-sided pleural effusion. 2. Moderate to large groundglass and patchy opacities scattered throughout both lungs. Differential is broad and includes but is not limited to edema or pneumonia. Recommend follow-up to resolution. 3. Moderate-sized consolidations in the lower lobes, larger on the right, with air bronchograms. Recommend follow-up to resolution. 4.The liver is heterogeneous. Micronodular appearance to the surface of the dennis er. There is a 2.4 cm low-density lesion in the posterior segment of the right lobe of the liver. A liver mass MRI is recommended. Evaluation of the liver is significantly limited due to artifact. 5. Moderate amount of nonspecific fat stranding and ascites scattered throughout the abdomen and pelvis. 6. Cholelithiasis. Abdomen X-Ray 02/07/25 10:42 IMPRESSION: 1. Diffuse opacification of the abdomen without significant bowel gas, likely attributable to ascites. Study limited by patient body habitus. 2: Bibasilar airspace disease may represent edema or pneumonia. Chest X-Ray 02/08/25 06:42 Impression: Extensive patchy bilateral airspace disease. Correlate for pulmonary edema versus bilateral pneumonia. Minimal pleural effusions. Support tubes, as above. Labs Labs: Laboratory Results - last 24 hr 02/07/25 02/07/25 02/07/25 09:41 11:33 14:21 WBC 18.1 H RBC 2.92 L Hgb 10.0 L Hct 31.2 L MCV 106.8 H MCH 34.2 H MCHC 32.1 RDW 22.6 H Plt Count 162 MPV 10.1 Immature Gran % (Auto) Neut % (Auto) Lymph % (Auto) [place] % (Auto) Eos % (Auto) Baso % (Auto) Lymph # (Auto) [place] # (Auto) Eos # (Auto) Baso # (Auto) Abs Immat Gran (auto) Absolute Neuts (auto) Absolute Nucleated RBC Band Neutrophils % Nucleated RBC % Platelet Estimate Anisocytosis Macrocytosis Schistocytes Puncture Site ABG pH ABG pCO2 ABG pO2 ABG PO2/FiO2 Ratio ABG HCO3 ABG O2 Saturation ABG O2 Content ABG Base Excess A-a Gradient Oxyhemoglobin Carboxyhemoglobin Methemoglobin Reduced Hemoglobin Total Hemoglobin O2 Delivery Device O2 Liters/Min Minute Volume Vent Rate Vent Mode FiO2 Tidal Volume PEEP Peak Inspir Pressure Pressure Support Sodium 140 Potassium 3.7 Chloride 114 H Carbon Dioxide 18 L Anion Gap 8 BUN 54 H Creatinine 1.32 H Estim Creat Clear Calc 65 Estimated GFR 41 L Glucose 159 H POC Capillary Glucose 159 H Lactic Acid Calcium 9.2 Phosphorus 3.0 Magnesium 1.7 Total Bilirubin AST ALT Alkaline Phosphatase Ammonia Total Protein Albumin Triglycerides 144 02/07/25 02/08/25 02/08/25 18:02 00:01 04:36 WBC RBC Hgb Hct MCV MCH MCHC RDW Plt Count MPV Immature Gran % (Auto) Neut % (Auto) Lymph % (Auto) [place] % (Auto) Eos % (Auto) Baso % (Auto) Lymph # (Auto) [place] # (Auto) Eos # (Auto) Baso # (Auto) Abs Immat Gran (auto) Absolute Neuts (auto) Absolute Nucleated RBC Band Neutrophils % Nucleated RBC % Platelet Estimate Anisocytosis Macrocytosis Schistocytes Puncture Site Left radial ABG pH 7.200 L* ABG pCO2 41.3 ABG pO2 68.1 L ABG PO2/FiO2 Ratio 1.36 ABG HCO3 15.8 L ABG O2 Saturation 89.5 L ABG O2 Content 14.5 L ABG Base Excess -11.6 A-a Gradient 241.9 Oxyhemoglobin 90.3 Carboxyhemoglobin 0.3 Methemoglobin 0.2 Reduced Hemoglobin 9.2 H Total Hemoglobin 11.4 L O2 Delivery Device Ventilator O2 Liters/Min Not Reportable Minute Volume Not Reportable Vent Rate 18 Vent Mode Cmv FiO2 50 Tidal Volume 400 PEEP 12 Peak Inspir Pressure Not Reportable Pressure Support Not Reportable Sodium Potassium Chloride Carbon Dioxide Anion Gap BUN Creatinine Estim Creat Clear Calc Estimated GFR Glucose POC Capillary Glucose 192 H 249 H Lactic Acid Calcium Phosphorus Magnesium Total Bilirubin AST ALT Alkaline Phosphatase Ammonia Total Protein Albumin Triglycerides 02/08/25 02/08/25 02/08/25 05:03 05:59 08:01 WBC 18.4 H RBC 2.83 L Hgb 9.9 L Hct 31.3 L MCV 110.6 H MCH 35.0 H MCHC 31.6 L RDW 22.8 H Plt Count 159 MPV 10.1 Immature Gran % (Auto) 5.3 H Neut % (Auto) 87.3 H Lymph % (Auto) 4.4 L [place] % (Auto) 2.7 Eos % (Auto) 0.0 Baso % (Auto) 0.3 Lymph # (Auto) 0.81 L [place] # (Auto) 0.5 Eos # (Auto) 0.0 Baso # (Auto) 0.1 Abs Immat Gran (auto) 0.97 H Absolute Neuts (auto) 16.0 H Absolute Nucleated RBC 0.040 H Band Neutrophils % Not Reportable Nucleated RBC % 0.2 Platelet Estimate Adequate Anisocytosis 2+ Macrocytosis 1+ Schistocytes None seen Puncture Site ABG pH ABG pCO2 ABG pO2 ABG PO2/FiO2 Ratio ABG HCO3 ABG O2 Saturation ABG O2 Content ABG Base Excess A-a Gradient Oxyhemoglobin Carboxyhemoglobin Methemoglobin Reduced Hemoglobin Total Hemoglobin O2 Delivery Device O2 Liters/Min Minute Volume Vent Rate Vent Mode FiO2 Tidal Volume PEEP Peak Inspir Pressure Pressure Support Sodium 138 Potassium 4.2 Chloride 112 H Carbon Dioxide 16 L Anion Gap 10 BUN 63 H Creatinine 1.64 H Estim Creat Clear Calc 53 Estimated GFR 32 L Glucose 304 H POC Capillary Glucose 253 H Lactic Acid 2.7 H 2.4 H Calcium 9.2 Phosphorus 3.8 Magnesium Total Bilirubin 5.2 H AST 174 H ALT 48 H Alkaline Phosphatase 96 Ammonia 58 H Total Protein 6.4 Albumin 2.7 L Triglycerides Quality VTE Prophylaxis VTE prophylaxis: mechanical ordered
[2025-02-08] MEDS: GENTAMICIN SULFATE INJ 530 MG in DEXTROSE 5% 100 ML 104.14 MG IVPB (11:08)
[2025-02-08] MEDS: AVIBACTAM IVPB (12:24)
[2025-02-08] MEDS: CEFTAZIDIME IVPB (12:24)
[2025-02-08] MEDS: SODIUM CHLORIDE 0.9% IVPB (12:24)
--- NOTE | 2025-02-08 13:52 | P.PNIM_ITS ---
Progress Note: A&P Assessment and Plan (1) Encephalopathy: Qualifiers: Encephalopathy type: metabolic Qualified Code(s): G93.41 - Metabolic encephalopathy Code(s): G93.40 - Encephalopathy, unspecified Status: Acute Assessment and Plan: Multifactorial, initially thought to be secondary to hyperammonemia, liver dysfunction,, shock -patient did receive lactulose enema on 01/31/2025, good bowel movements x2 Ammonia levels have normalized Continue to monitor -anisocoria, CT scan of the brain 01/28/2025 with no significant abnormality seen -continues to be encephalopathic -02/02/2025, repeat CT scan of the brain with no acute intracranial process, chronic small vessel ischemic disease -appreciate Neurology evaluation, -02/04: EEG: Abnormal record due to the absence of the normal background rhythm and due to the presence of bihemispheric slow activity. These findings are suggestive of organic or metabolic encephalopathy or postictal state. Clinical correlation recommended. This tracing is not compatible with electrocerebral silence. 02/04: Patient did open her eyes and tracked, followed commands with lower extremities 02/05: required increasing sedation overnight due to hypoxia and worsening chest x-ray (2) Airway compromise: Code(s): J98.8 - Other specified respiratory disorders Status: Acute Assessment and Plan: Patient encephalopathic with elevated ammonia level, not protecting her airway, also intubated for aspiration prevention and for EGD -01/28: Intubated patient for airway protection due to encephalopathy -currently on CMV mode of ventilation, -chest x-ray and ABGs reviewed, maintain O2 sats > 92%, ventilator adjusted, increase PEEP to 10 and 60% FiO2 -sedated with Precedex infusion, will have bedside RN wean Precedex and try to wake up patient. When she is more awake will place her on SBT and evaluate for extubation 02/01: Patient continues to have thick ETT secretions, added Pulmozyme and Mucomyst nebulizer 02/02: Patient spiked fevers, continues to have thick ETT secretions, borderline blood pressure, started patient on cefepime and vancomycin (02/02) 02/02: Blood cultures: No growth x2 02/02: Sputum culture: ESBL E coli 02/04: Lasix 40 mg IV x1 -02/05: Switch cefepime to meropenem (02/05) -CT scan of the chest abdomen and pelvis: IMPRESSION: 1. Tiny left-sided pleural effusion. Small right-sided pleural effusion. 2. Moderate to large ground glass and patchy opacities scattered throughout both lungs. Differential is broad and includes but is not limited to edema or pneumonia. Recommend follow-up to resolution. 3. Moderate-sized consolidations in the lower lobes, larger on the right, with air bronchograms. Recommend follow-up to resolution. 4.The liver is heterogeneous. Micronodular appearance to the surface of the liver. There is a 2.4 cm low-density lesion in the posterior segment of the righ t lobe of the liver. A liver mass MRI is recommended. Evaluation of the liver is significantly limited due to artifact. 5. Moderate amount of nonspecific fat stranding and ascites scattered throughout the abdomen and pelvis. 6. Cholelithiasis. (3) Pneumonia: Code(s): J18.9 - Pneumonia, unspecified organism Status: Acute Assessment and Plan: 02/02: Chest x-ray with worsening infiltrates, thick cream to yellow colored secretion -sputum cultures as above -continue antibiotics as above (4) Hemorrhagic shock: Code(s): R57.8 - Other shock Status: Acute Assessment and Plan: RESOLVED Pt presented with rectal bleed, CT showed esophageal and rectal varices. -Transfused 2 units unmatched PRBC in the ER -hemoglobin this morning is 9.3, platelets 186 -01/28: INR 1.6, will give vitamin K -01/28: Transfused 1 unit of FFP and 1 unit of packed RBC -01/30: 1 unit of FFP and 1 unit of packed RBCs were transfused 02/05: Hypoxia, hypotension, Levophed was restarted,, maintain MAP > 65 mm Hg at all times for adequate end organ perfusion, continue antibiotics as above -01/29: Hb 7.3, INR 1.8 this morning. Transfused 1 unit of FFP and 1 unit of packed RBC, will also repeat vitamin K IVPB -01/30: Hemoglobin remained stable, decreased NG output. Discussed with GI, will continue octreotide. Discontinued Protonix infusion and IV Protonix -01/31: Hemoglobin is 9.7 this morning and stable, NG was removed 01/30 with EGD. Will continue octreotide per GI -02/01: Hemoglobin 10.1 this morning in stable, patient remains on octreotide infusion -04/04: Hemoglobin 10.4 and stable, patient remains on octreotide infusion per GI -02/03: Hemoglobin remained stable at 9.0 -02/04: Hemoglobin 9.5 and stable 01/28: CTA scan of the abdomen and pelvis: Findings within the liver for which malignancy is suspected. Additional findings within the rectum for which acute hemorrhage is suspected (likely secondary to anorectal varices). No findings to suggest upper GI bleeding. 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 Incidental notation is made of cholelithiasis. (5) Esophageal varices: Qualifiers: Esophageal varices bleeding: with bleeding Esophageal varices type: unspecified type Qualified Code(s): I85.01 - Esophageal varices with bleeding Code(s): I85.00 - Esophageal varices without bleeding Status: Acute Assessment and Plan: Esophageal varices as seen on CTA abdomen and pelvis. -appreciate GI evaluation -01/28: EGD: Showed actively bleeding gastric varix at the gastric cardia, a band ligation device was used to place 1 band, moderate gastritis was seen in the stomach. The gastric has a moderate portal hypertensive change. Large amount of blood was seen in the distal esophagus and the stomach the bowel and the 2nd portion of duodenum was normal with no ulcers or masses 01/30: Repeat EGD: Showed medium grade 3 varices (large varices almost occluding the esophageal lumen were present in the distal esophagus. There was no evidence of bleeding bleeding corresponding to the previous band. To more bands were placed. There was a large fundal pool of blood in the stomach. The bulb and the 2nd portion of duodenum was normal Appreciate GI following the patient, discussed with GI, -OFF octreotide infusion (6) Rectal varices: Code(s): K64.9 - Unspecified hemorrhoids Status: Acute Assessment and Plan: Likely related to alcoholic cirrhosis, (7) Alcoholic cirrhosis of liver with ascites: Code(s): K70.31 - Alcoholic cirrhosis of liver with ascites Status: Acute Assessment and Plan: History of alcoholic cirrhosis -LFTs and bilirubin elevated but stable -could be related to shock liver, cirrhosis, bleeding -status post ceftriaxone (01/28) for SBP prophylaxis -continue to monitor LFTs and bilirubin -INR elevated, status post vitamin K and FFP, INR is stable -continue to monitor -02/04: INR 1.7, vitamin K 10 mg IV piggyback x1 (8) Acute kidney injury: Code(s): N17.9 - Acute kidney failure, unspecified Status: Acute Assessment and Plan: Acute kidney injury, likely related to hemorrhagic shock -low urine output, creatinine and BUN normal -maintain adequate MAP and SBP -continue to monitor urine output, renal function electrolytes -creatinine remains normal (9) Abnormal CT of liver: Code(s): R93.2 - Abnormal findings on diagnostic imaging of liver and biliary tract Status: Acute Assessment and Plan: CT abdomen and pelvis as above: Suspicious for malignancy -AFP significantly elevated to 83,546 (0.0-9.2) -GI is following the patient: Recommended may need MRI liver protocol when more stable and extubated (10) Septic shock: Code(s): A41.9 - Sepsis, unspecified organism; R65.21 - Severe sepsis with septic shock Status: Acute Assessment and Plan: Patient with ESBL E coli pneumonia on sputum culture -low blood pressures likely related to sepsis/shock -restarted on Levophed,, maintain MAP > 65 mmHg or SBP > 100 mmHg at all times for adequate end organ perfusion -antibiotics as above Plan DVT prophylaxis: SCDs, no chemoprophylaxis due to hemorrhagic shock and GI bleed Stress ulcer prophylaxis: Protonix IV daily Nutrition: TPN started on 02/02, will discuss with GI regarding possibility of NG tube placement and starting and trach feeds Code Status: DNR Critical Care Time Spent: 34 minutes 02/01: Discussed at length with patient's sister Jinny, she wants to be the decision maker, appreciate Allison from care coordination discussed with Jinny and patient's daughter Modesta. Modesta agreed the Jinny to be the surrogate decision maker. They also agree to make her a do not resuscitate, orders for DNR when placed in the chart. I answered all the questions 01/31: Discussed with Modesta Stearns, patient's daughter at [phone], updated the daughter with patient's condition from the time she came to the hospital until today. She is aware that patient is not waking up despite being off sedation likely related to hepatic encephalopathy. I updated her with the repeat EGD that was done yesterday and that the patient has received multiple blood products. I also discussed with her code status to which the daughter stated she wanted her to be a full code. She did not have any other questions. 01/30: Discussed with Jinny Cabezas, patient's sister and updated her with patient's condition and plan of care. She stated that the patient has a daughter with anemia of Modesta Stearns, she was supposed to contact the daughter and I asked to give me a call. Will try to locate daughter's number and will give her a call and explain to her patient's condition/situation and recommendations of the casework specialist. Chart reviewed. Chart reviewed. Patient remains intubated and encephalopathy, sputum culture is growing E coli, possibly aspiration, patient is being treated with Ceftazime/Avibactam and stopped meropenem, patient had Dobbhoff inserted yesterday, discuss with electrical repairer, , Off Precedex drip. Off Levophed now. patient is now DNR per patient POA, will monitor and appreciate electrical repairer. Subjective Date/time seen: 02/08/25 13:52 Interval history: Chart reviewed. Patient remains intubated and encephalopathy, sputum culture is growing E coli, possibly aspiration, patient is being treated with Ceftazime/Avibactam and stopped meropenem, patient had Dobbhoff inserted yesterday, discuss with electrical repairer, , Off Precedex drip. Off Levophed now. patient is now DNR per patient POA, will monitor and appreciate electrical repairer. Review of Systems Review of Systems: ROS unobtainable: Yes unobtainable due to endotracheal tube Exam Narrative: Patient is comfortable, NAD HEENT: ET tube in place LUNGS:CTA HEART: RR S1S2 ABD: BS+, Soft and nontender Lower extremities: no edema SKIN: nonjaundiced Neuro: On vent and sedated Objective Data Vital Signs Vital Signs: Vital Signs - 24 hr 02/07/25 14:00 02/07/25 14:00 02/07/25 14:00 Temperature 37.3 C 37.3 C Pulse Rate 70 79 70 Respiratory Rate 20 18 Blood Pressure 143/92 H 143/92 H 143/92 H Pulse Oximetry 100 99 Oxygen Delivery Fraction of Inspired Oxygen 02/07/25 14:00 02/07/25 14:00 02/07/25 14:00 Temperature Pulse Rate 71 70 70 Respiratory Rate 20 20 Blood Pressure Pulse Oximetry Oxygen Delivery Fraction of Inspired Oxygen 08/16/25 14:10 02/07/25 14:13 02/07/25 14:19 Temperature Pulse Rate 70 76 78 Respiratory Rate 21 H 20 Blood Pressure Pulse Oximetry 100 Oxygen Delivery Mechanical Ventilation Fraction of Inspired Oxygen 70 02/07/25 16:00 02/07/25 16:00 02/07/25 16:00 Temperature 37.2 C Pulse Rate 70 70 Respiratory Rate 17 Blood Pressure 113/67 Pulse Oximetry 100 Oxygen Delivery Mechanical Ventilation Fraction of Inspired Oxygen 60 02/07/25 16:00 02/07/25 16:00 02/07/25 16:00 Temperature Pulse Rate 70 70 Respiratory Rate 18 Blood Pressure 113/67 Pulse Oximetry Oxygen Delivery Fraction of Inspired Oxygen 60 02/07/25 16:00 02/07/25 16:41 02/07/25 18:00 Temperature Pulse Rate 70 74 64 Respiratory Rate 18 Blood Pressure Pulse Oximetry 97 Oxygen Delivery Mechanical Ventilation Fraction of Inspired Oxygen 60 02/07/25 18:00 02/07/25 18:00 02/07/25 18:00 Temperature 37.1 C Pulse Rate 63 63 63 Respiratory Rate 18 18 Blood Pressure 98/70 L 98/70 L Pulse Oximetry 96 Oxygen Delivery Fraction of Inspired Oxygen 02/07/25 18:00 02/07/25 20:00 02/07/25 20:00 Temperature 36.8 C Pulse Rate 63 65 Respiratory Rate 18 14 Blood Pressure 110/72 Pulse Oximetry 99 Oxygen Delivery Mechanical Ventilation Fraction of Inspired Oxygen 02/07/25 20:00 02/07/25 20:00 02/07/25 20:00 Temperature Pulse Rate 63 63 Respiratory Rate 18 Blood Pressure Pulse Oximetry Oxygen Delivery Fraction of Inspired Oxygen 60 02/07/25 20:00 02/07/25 20:44 02/07/25 20:45 Temperature Pulse Rate 63 62 62 Respiratory Rate 18 21 H Blood Pressure Pulse Oximetry 98 Oxygen Delivery Mechanical Ventilation Fraction of Inspired Oxygen 60 02/07/25 21:00 02/07/25 21:20 02/07/25 22:00 Temperature 36.7 C Pulse Rate 67 82 71 Respiratory Rate 21 H 13 Blood Pressure 110/72 105/63 Pulse Oximetry 95 Oxygen Delivery Fraction of Inspired Oxygen 02/07/25 22:00 02/07/25 22:00 02/07/25 22:00 Temperature Pulse Rate 71 71 71 Respiratory Rate 18 18 Blood Pressure Pulse Oximetry Oxygen Delivery Fraction of Inspired Oxygen 02/07/25 23:30 02/07/25 23:30 02/08/25 00:00 Temperature Pulse Rate 69 Respiratory Rate Blood Pressure Pulse Oximetry 96 Oxygen Delivery Mechanical Ventilation Mechanical Ventilation Fraction of Inspired Oxygen 60 60 02/08/25 00:00 02/08/25 00:00 02/08/25 00:00 Temperature 36.4 C L Pulse Rate 71 67 69 Respiratory Rate 11 L 18 Blood Pressure 111/67 Pulse Oximetry 95 Oxygen Delivery Fraction of Inspired Oxygen 02/08/25 00:00 02/08/25 00:30 02/08/25 02:00 Temperature Pulse Rate 69 68 84 Respiratory Rate 18 Blood Pressure 90/68 L Pulse Oximetry Oxygen Delivery Fraction of Inspired Oxygen 02/08/25 02:00 02/08/25 02:00 02/08/25 02:00 Temperature 36.3 C L Pulse Rate 70 84 71 Respiratory Rate 11 L 18 Blood Pressure 111/68 111/66 Pulse Oximetry 98 Oxygen Delivery Fraction of Inspired Oxygen 02/08/25 02:00 02/08/25 02:18 02/08/25 02:19 Temperature Pulse Rate 71 71 71 Respiratory Rate 18 18 Blood Pressure Pulse Oximetry 98 Oxygen Delivery Mechanical Ventilation Fraction of Inspired Oxygen 55 02/08/25 02:33 02/08/25 04:00 02/08/25 04:00 Temperature 36.2 C L Pulse Rate 77 82 Respiratory Rate 18 16 Blood Pressure 118/72 Pulse Oximetry 97 Oxygen Delivery Fraction of Inspired Oxygen 50 02/08/25 04:00 02/08/25 04:00 02/08/25 04:10 Temperature Pulse Rate 91 88 Respiratory Rate Blood Pressure 118/72 Pulse Oximetry Oxygen Delivery Mechanical Ventilation Fraction of Inspired Oxygen 50 02/08/25 04:10 02/08/25 04:52 02/08/25 05:00 Temperature Pulse Rate 88 77 75 Respiratory Rate Blood Pressure 118/72 98/61 L Pulse Oximetry 96 Oxygen Delivery Mechanical Ventilation Fraction of Inspired Oxygen 50 02/08/25 06:00 02/08/25 06:00 02/08/25 07:50 Temperature 36.1 C L Pulse Rate 73 73 74 Respiratory Rate 18 18 Blood Pressure 106/63 Pulse Oximetry 94 Oxygen Delivery Fraction of Inspired Oxygen 02/08/25 07:50 02/08/25 08:00 02/08/25 08:00 Temperature 36.0 C L Pulse Rate 74 77 74 Respiratory Rate 18 19 18 Blood Pressure 106/66 Pulse Oximetry 94 Oxygen Delivery Fraction of Inspired Oxygen 02/08/25 08:00 02/08/25 08:00 02/08/25 08:00 Temperature Pulse Rate 74 74 Respiratory Rate 18 Blood Pressure 106/66 Pulse Oximetry Oxygen Delivery Fraction of Inspired Oxygen 60 02/08/25 08:00 02/08/25 08:00 02/08/25 08:27 Temperature Pulse Rate 80 124 H Respiratory Rate 18 Blood Pressure Pulse Oximetry 94 Oxygen Delivery Mechanical Ventilation Fraction of Inspired Oxygen 60 02/08/25 08:27 02/08/25 09:00 02/08/25 10:00 Temperature 35.8 C L Pulse Rate 124 H 84 75 Respiratory Rate 18 Blood Pressure 124/66 100/59 L Pulse Oximetry 97 96 Oxygen Delivery Mechanical Ventilation Fraction of Inspired Oxygen 60 02/08/25 10:00 02/08/25 10:00 02/08/25 10:00 Temperature Pulse Rate 75 75 75 Respiratory Rate 22 H 22 H Blood Pressure 100/59 L Pulse Oximetry Oxygen Delivery Fraction of Inspired Oxygen 02/08/25 10:00 02/08/25 11:46 02/08/25 12:00 Temperature 35.4 C L Pulse Rate 75 124 H 84 Respiratory Rate 17 Blood Pressure 109/67 Pulse Oximetry 97 98 Oxygen Delivery Mechanical Ventilation Fraction of Inspired Oxygen 60 02/08/25 12:00 02/08/25 12:00 02/08/25 12:00 Temperature Pulse Rate 84 84 Respiratory Rate 22 H Blood Pressure 109/67 Pulse Oximetry 98 Oxygen Delivery Mechanical Ventilation Fraction of Inspired Oxygen 60 02/08/25 12:00 02/08/25 12:00 02/08/25 12:00 Temperature Pulse Rate 84 76 Respiratory Rate 22 H Blood Pressure Pulse Oximetry Oxygen Delivery Fraction of Inspired Oxygen 60 02/08/25 13:17 02/08/25 13:32 Temperature 35.4 C L 35.4 C L Pulse Rate Respiratory Rate Blood Pressure Pulse Oximetry Oxygen Delivery Fraction of Inspired Oxygen Intake/Output Intake/Output: Intake & Output 02/05/25 02/06/25 02/07/25 02/08/25 23:59 23:59 23:59 23:59 Intake Total 2695.2 2166.0 2003.3 4922.9 Output Total 625 650 700 200 Balance 2070.2 1516.0 1303.3 4722.9 Meds/Results Medications: Active Medications Generic Name Dose Route Start Last Admin Trade Name Freq PRN Reason Stop Dose Admin Acetaminophen 650 mg 02/01/25 14:06 02/01/25 15:42 Acetaminophen 650 Mg Suppository RECTAL 650 mg Q6H PRN Administration Mild Pain (1-3) or Fever Acetylcysteine 200 mg 02/01/25 14:00 02/08/25 08:27 Acetylcysteine 20% Inhal Soln 800 Mg/4 Ml Vial INHALATION 200 mg Q6HRT TATYANA Administration Albuterol/Ipratropium 3 ml 01/30/25 14:00 02/08/25 08:27 Ipratropium 0.5 Mg/Albuterol Sulfate 2.5 Mg Ampul.Neb 3 Ml INHALATION 3 ml Q6HRT TATYANA Administration Alteplase, Recombinant 2 mg 02/02/25 10:10 Alteplase 2 Mg Vial (Cathflo) IV PUSH ONCE PRN Line Occlusion Dextrose 12.5 gm 02/02/25 10:13 Dextrose 50% 25 Gm/50 Ml Syringe IV PUSH PRN PRN Hypoglycemia Protocol Glucagon 1 mg 02/02/25 10:13 Glucagon For Inj 1 Mg Vial IM PRN PRN Hypoglycemia Protocol Glucose 15 gm 02/02/25 10:13 Glucose Oral Gel 15 Gm Of Glucse In 37.5 Gm Tube PO PRN PRN Hypoglycemia Protocol Multivitamins 1.25 ml/ 1,002.5 mls @ 50 mls/hr 02/02/25 14:00 02/08/25 06:37 Multivitamins 1.25 ml/ Amino IV CONT 50 mls/hr Acids/Dextrose .Q20H3M TATYANA Administration Protocol Dextrose 1,000 mls @ 50 mls/hr 02/02/25 10:12 Dextrose 10% IV CONT .Q20H PRN if PN is interrupted Fat Emulsion Intravenous 250 mls @ 20.833 mls/hr 02/02/25 14:00 02/08/25 02:15 Lipids 20% IVPB Infused Q24H TATYANA Infusion Dextrose 1,000 mls @ 100 mls/hr 02/02/25 10:13 Dextrose 5% 1,000 Ml IVPB PRN PRN Hypoglycemia Protocol Midazolam HCl 100 mg in 100 mls @ 4 mls/hr 02/04/25 21:25 02/08/25 12:00 Versed 100 Mg/Ns 100 Ml IV CONT 4 mg/hr .Q25H TATYANA 4 mls/hr Titration Protocol 4 MG/HR Norepinephrine Bitartrate 8 mg in 250 mls @ 0 mls/hr 02/04/25 22:15 02/08/25 12:00 Levophed 8 Mg/D5w 250 Ml IV CONT 0 mcg/min .Q0M TATYANA 0 mls/hr Titration Protocol 0 MCG/MIN Fentanyl Citrate 2,500 mcg in 250 mls @ 5 mls/hr 02/06/25 23:05 02/08/25 12:00 Fentanyl 2,500 Mcg/Ns 250 Ml IV CONT 50 mcg/hr .Q50H TATYANA 5 mls/hr Titration Protocol 50 MCG/HR Sodium Bicarbonate 150 meq/ 1,100 mls @ 75 mls/hr 02/08/25 07:25 02/08/25 09:01 Sterile Water IV CONT 75 mls/hr .[id number] TATYANA Administration Ceftazidime/Avibactam 2.5 gm/ 262 mls @ 131 mls/hr 02/08/25 11:00 02/08/25 12:24 Sodium Chloride IVPB 131 mls/hr Q8H TATYANA Administration Insulin Aspart 2 - 5 units 02/02/25 12:00 02/08/25 12:00 Insulin Aspart (*Bkc) 100 Units/Ml SUB-Q 3 units Q6HR TATYANA Administration Protocol Lactulose 20 gm 02/08/25 08:00 02/08/25 07:53 Lactulose 20 Gm/30 Ml Udc PO 20 gm Q8H TATYANA Administration Multi-Ingred Cream/Lotion/Oil/Oint 1 applic 01/28/25 09:15 02/08/25 09:01 Mineral Oil/White Petrolatum Ointment EACH EYE 1 applic Q12HR TATYANA Administration Ondansetron HCl 4 mg 01/28/25 01:51 Ondansetron Inj 4 Mg/2 Ml Vial IV PUSH Q4H PRN Nausea Pantoprazole Sodium 40 mg 02/05/25 09:00 02/08/25 09:00 Pantoprazole Sodium Iv 40 Mg Vial IV PUSH 40 mg QAM TATYANA Administration Rifaximin 550 mg 02/08/25 09:00 02/08/25 09:01 Rifaximin 550 Mg Tablet PO 550 mg Q12HR TATYANA Administration Sodium Chloride 10 ml 01/28/25 14:00 02/08/25 05:11 Central Line Flush IV PUSH 10 ml Q8HR TATYANA Administration Sodium Chloride 20 ml 01/28/25 06:37 Central Line Flush IV PUSH PRN PRN after blood draws Radiology Results: ITS Impressions Abdomen/Pelvis CTA 01/28/25 00:08 IMPRESSION: Findings within the liver for which malignancy is suspected. Additional findings within the rectum for which acute hemorrhage is suspected (likely secondary to anorectal varices). No findings to suggest upper GI bleeding. 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 Incidental notation is made of cholelithiasis. Head CT 02/02/25 13:34 IMPRESSION: 1. No acute intracranial process. 2. Stable age-related changes including mild diffuse volume loss and mild scattered white matter hypoattenuation consistent with chronic small vessel ischemic disease. Chest/Abdomen/Pelvis CT 02/05/25 10:13 IMPRESSION: 1. Tiny left-sided pleural effusion. Small right-sided pleural effusion. 2. Moderate to large groundglass and patchy opacities scattered throughout both lungs. Differential is broad and includes but is not limited to edema or pneumonia. Recommend follow-up to resolution. 3. Moderate-sized consolidations in the lower lobes, larger on the right, with air bronchograms. Recommend follow-up to resolution. 4.The liver is heterogeneous. Micronodular appearance to the surface of the liver. There is a 2.4 cm low-density lesion in the posterior segment of the right lobe of the liver. A liver mass MRI is recommended. Evaluation of the liver is significantly limited due to artifact. 5. Moderate amount of nonspecific fat stranding and ascites scattered throughout the abdomen and pelvis. 6. Cholelithiasis. Abdomen X-Ray 02/07/25 10:42 IMPRESSION: 1. Diffuse opacification of the abdomen without significant bowel gas, likely attributable to ascites. Study limited by patient body habitus. 2: Bibasilar airspace disease may represent edema or pneumonia. Chest X-Ray 02/08/25 06:42 Impression: Extensive patchy bilateral airspace disease. Correlate for pulmonary edema ve rsus bilateral pneumonia. Minimal pleural effusions. Support tubes, as above. Labs Labs: Laboratory Results - last 24 hr 02/07/25 02/07/25 02/08/25 14:21 18:02 00:01 WBC RBC Hgb Hct MCV MCH MCHC RDW Plt Count MPV Immature Gran % (Auto) Neut % (Auto) Lymph % (Auto) [place] % (Auto) Eos % (Auto) Baso % (Auto) Lymph # (Auto) [place] # (Auto) Eos # (Auto) Baso # (Auto) Abs Immat Gran (auto) Absolute Neuts (auto) Absolute Nucleated RBC Band Neutrophils % Nucleated RBC % Platelet Estimate Anisocytosis Macrocytosis Schistocytes Puncture Site ABG pH ABG pCO2 ABG pO2 ABG PO2/FiO2 Ratio ABG HCO3 ABG O2 Saturation ABG O2 Content ABG Base Excess A-a Gradient Oxyhemoglobin Carboxyhemoglobin Methemoglobin Reduced Hemoglobin Total Hemoglobin O2 Delivery Device O2 Liters/Min Minute Volume Vent Rate Vent Mode FiO2 Tidal Volume PEEP Peak Inspir Pressure Pressure Support Sodium Potassium Chloride Carbon Dioxide Anion Gap BUN Creatinine Estim Creat Clear Calc Estimated GFR Glucose POC Capillary Glucose 192 H 249 H Lactic Acid Calcium Phosphorus Total Bilirubin AST ALT Alkaline Phosphatase Ammonia Total Protein Albumin Triglycerides 144 02/08/25 02/08/25 02/08/25 04:36 05:03 05:59 WBC 18.4 H RBC 2.83 L Hgb 9.9 L Hct 31.3 L MCV 110.6 H MCH 35.0 H MCHC 31.6 L RDW 22.8 H Plt Count 159 MPV 10.1 Immature Gran % (Auto) 5.3 H Neut % (Auto) 87.3 H Lymph % (Auto) 4.4 L [place] % (Auto) 2.7 Eos % (Auto) 0.0 Baso % (Auto) 0.3 Lymph # (Auto) 0.81 L [place] # (Auto) 0.5 Eos # (Auto) 0.0 Baso # (Auto) 0.1 Abs Immat Gran (auto) 0.97 H Absolute Neuts (auto) 16.0 H Absolute Nucleated RBC 0.040 H Band Neutrophils % Not Reportable Nucleated RBC % 0.2 Platelet Estimate Adequate Anisocytosis 2+ Macrocytosis 1+ Schistocytes None seen Puncture Site Left radial ABG pH 7.200 L* ABG pCO2 41.3 ABG pO2 68.1 L ABG PO2/FiO2 Ratio 1.36 ABG HCO3 15.8 L ABG O2 Saturation 89.5 L ABG O2 Content 14.5 L ABG Base Excess -11.6 A-a Gradient 241.9 Oxyhemoglobin 90.3 Carboxyhemoglobin 0.3 Methemoglobin 0.2 Reduced Hemoglobin 9.2 H Total Hemoglobin 11.4 L O2 Delivery Device Ventilator O2 Liters/Min Not Reportable Minute Volume Not Reportable Vent Rate 18 Vent Mode Cmv FiO2 50 Tidal Volume 400 PEEP 12 Peak Inspir Pressure Not Reportable Pressure Support Not Reportable Sodium 138 Potassium 4.2 Chloride 112 H Carbon Dioxide 16 L Anion Gap 10 BUN 63 H Creatinine 1.64 H Estim Creat Clear Calc 53 Estimated GFR 32 L Glucose 304 H POC Capillary Glucose 253 H Lactic Acid 2.7 H Calcium 9.2 Phosphorus 3.8 Total Bilirubin 5.2 H AST 174 H ALT 48 H Alkaline Phosphatase 96 Ammonia 58 H Total Protein 6.4 Albumin 2.7 L Triglycerides 02/08/25 02/08/25 08:01 11:16 WBC RBC Hgb Hct MCV MCH MCHC RDW Plt Count MPV Immature Gran % (Auto) Neut % (Auto) Lymph % (Auto) [place] % (Auto) Eos % (Auto) Baso % (Auto) Lymph # (Auto) [place] # (Auto) Eos # (Auto) Baso # (Auto) Abs Immat Gran (auto) Absolute Neuts (auto) Absolute Nucleated RBC Band Neutrophils % Nucleated RBC % Platelet Estimate Anisocytosis Macrocytosis Schistocytes Puncture Site ABG pH ABG pCO2 ABG pO2 ABG PO2/FiO2 Ratio ABG HCO3 ABG O2 Saturation ABG O2 Content ABG Base Excess A-a Gradient Oxyhemoglobin Carboxyhemoglobin Methemoglobin Reduced Hemoglobin Total Hemoglobin O2 Delivery Device O2 Liters/Min Minute Volume Vent Rate Vent Mode FiO2 Tidal Volume PEEP Peak Inspir Pressure Pressure Support Sodium Potassium Chloride Carbon Dioxide Anion Gap BUN Creatinine Estim Creat Clear Calc Estimated GFR Glucose POC Capillary Glucose 252 H Lactic Acid 2.4 H Calcium Phosphorus Total Bilirubin AST ALT Alkaline Phosphatase Ammonia Total Protein Albumin Triglycerides Quality VTE Prophylaxis VTE prophylaxis: mechanical ordered
[2025-02-08] MEDS: FAT EMULSIONS IV 20% 250 ML 20.8 ML IVPB (14:38)
[2025-02-08 20:20] LABS: Anion Gap 10 mmol/L (4-12); Blood Urea Nitrogen 68 mg/dL (7-17); Calcium 9.5 mg/dL (8.4-10.2); Carbon Dioxide 17 mmol/L (22-30); Chloride 109 mmol/L (98-107); Estimated CRCL calculation 50 ml/min; Estimated Glomerular Filt Rate 29; Glucose 239 mg/dL (65-110); Magnesium 1.7 mg/dL (1.6-2.3); Potassium 4.0 mmol/L (3.4-5.0); Sodium 136 mmol/L (137-145)
[2025-02-08] MEDS: MAGNESIUM SULF 2 GM/WATER 50ML 2 GM/50 ML BAG IVPB (20:49)
[2025-02-08] MEDS: CEFTAZIDIME/AVIBACTAM 2.5 GM in SODIUM CHLORIDE 0.9% IV 100 ML IVPB (20:49)
[2025-02-08] MEDS: FENTANYL 2,500MCG/NS250ML(*CRX 2,500 MCG/250 ML BAG IV CONT (22:36)
[2025-02-09] VITALS (27 sets, daily range): BP systolic 80–125; BP diastolic 55–83; PULSE 81–171; RESP 8–25; TEMP 36.3–36.8; O2SAT 54–98
[2025-02-09] MEDS: INSULIN ASPART (*BKC) 100 UNITS/ML SUB-Q ×4 (00:23→11:49)
[2025-02-09] MEDS: IPRATROPIUM 0.5 MG/ALBUTEROL SULFATE 2.5 MG AMPUL.NEB 3 ML INHALATION ×3 (02:21→13:23)
[2025-02-09] MEDS: SODIUM BICARBONATE 8.4% 150 MEQ in WATER, STERILE FOR INJECTION 950 ML 75 MEQ IV CONT (02:21)
[2025-02-09] MEDS: ACETYLCYSTEINE 20% INHAL SOLN 800 MG/4 ML VIAL 200 MG INHALATION ×2 (02:21→07:48)
[2025-02-09 04:33] LABS: Hematocrit 30.6 % (37.0-47.0); Hemoglobin 9.7 g/dL (12.0-15.0); Immature Granulocyte Percent A 3.7 % (0-0.5); Lymphocytes Absolute Auto 0.93 K/mm3 (0.9-3.2); Mean Corpuscular HGB Conc 31.7 g/dl (32-36); Mean Corpuscular Hemoglobin 34.0 pg (26-34); Mean Corpuscular Volume 107.4 fl (80-100); Nucleated Red Blood Cells Absolute Auto 0.140 K/mm3 (0.0-0.012); Nucleated Red Blood Cells Perc 0.6 % (0.0-0.2); Platelet Count Result 216 k/mm3 (150-375); Red Blood Count 2.85 M/mm3 (4.2-5.4); White Blood Count 22.3 K/mm3 (4.5-10.0)
[2025-02-09] MEDS: CEFTAZIDIME/AVIBACTAM 2.5 GM in SODIUM CHLORIDE 0.9% IV 100 ML IVPB (04:33)
[2025-02-09 04:38] LABS: Alveolar/Arterial O2 Gradient 298.6 mmHg; Carboxyhemoglobin 0.3 % THb (0-2.0); Fractional Inspired Oxygen 60 %; HCO3 ABG 19.3 mEq/l (22.0-26.0); Methemoglobin ABG 0.2 %THb (0-1.5); Oxygen Content ABG 14.6 %vol (16.0-22.0); Oxygen Saturation ABG 95.7 % (95.0-100.0); PCO2 ABG 39.4 mmHg (35.0-45.0); PO2 ABG 85.9 mmHg (80.0-100.0); PO2 FiO2 Ratio Arterial Blood 1.43 %; Reduced Hemoglobin 3.9 %THb (0-5.0)
[2025-02-09 04:42] LABS: Arterial Blood Gas Ventilator rate 22 /MIN; Modified Allen's Test Pass; Site Drawn RIGHT RADIAL
[2025-02-09 04:43] LABS: Arterial Blood Gas Tidal Volume 400 ml
[2025-02-09 04:47] LABS: Ammonia 36 umol/L (9-30)
[2025-02-09 05:06] LABS: INR 1.5; Prothrombin Time 18.4 Seconds (11.1-14.7)
[2025-02-09 05:07] LABS: Partial Thromboplastin Time 31.1 Seconds (22.3-36.8)
[2025-02-09 05:08] LABS: Alanine Aminotransferase 62 U/L (6-35); Albumin Level 2.7 g/dL (3.5-5.1); Alkaline Phosphatase 116 U/L (38-126); Anion Gap 8 mmol/L (4-12); Aspartate Amino Transferase 232 U/L (14-36); Bilirubin,Total 4.2 mg/dL (0.2-1.3); Blood Urea Nitrogen 77 mg/dL (7-17); Calcium 9.3 mg/dL (8.4-10.2); Carbon Dioxide 20 mmol/L (22-30); Chloride 110 mmol/L (98-107); Estimated CRCL calculation 47 ml/min; Estimated Glomerular Filt Rate 27; Glucose 237 mg/dL (65-110); Magnesium 1.9 mg/dL (1.6-2.3); Potassium 4.3 mmol/L (3.4-5.0); Sodium 138 mmol/L (137-145); Total Protein 6.5 g/dL (6.3-8.2)
[2025-02-09 05:12] LABS: Transferrin 81 mg/dL (206-381)
[2025-02-09 05:25] LABS: Anisocytosis 2+
[2025-02-09 05:26] LABS: Crenated RBC 1+; Schistocytes None Seen
[2025-02-09] MEDS: CENTRAL LINE FLUSH 10 ML IV PUSH ×3 (05:46→19:52)
--- NOTE | 2025-02-09 08:04 | PC.NURSE ---
Sedation placed on hold for sedation vacation per MD order
[2025-02-09] MEDS: LACTULOSE 20 GM/30 ML UDC FEED TUBE (08:19)
[2025-02-09] MEDS: SODIUM BICARBONATE TAB 650 MG TABLET FEED TUBE (08:19)
[2025-02-09] MEDS: PANTOPRAZOLE SODIUM IV 40 MG VIAL IV PUSH (08:20)
[2025-02-09] MEDS: MINERAL OIL/WHITE PETROLATUM OINTMENT 1 APPLIC EACH EYE (08:20)
[2025-02-09] MEDS: INSULIN GLARGINE (*BKC) 100 UNITS/ML 20 UNITS SUB-Q (08:20)
[2025-02-09] MEDS: FUROSEMIDE INJ 100 MG/10 ML VIAL 80 MG IV PUSH (08:21)
[2025-02-09 09:34] LABS: Triglycerides 161 mg/dL (<150)
--- NOTE | 2025-02-09 10:45 | WPDINTPN ---
Progress Note: A&P Assessment and Plan (1) Acute respiratory failure: Code(s): J96.00 - Acute respiratory failure, unspecified whether with hypoxia or hypercapnia Status: Acute Assessment and Plan: Patient was encephalopathic with elevated ammonia level, not protecting her airway, also intubated for aspiration prevention and for EGD -01/28: Intubated patient for airway protection due to encephalopathy -currently on CMV mode of ventilation, 60% FiO2 and 12 peep. Wean PEEP down to 10 and FiO2 50% - Chest x-ray and ABG reviewed 02/02: Blood cultures: No growth x2 02/02: Sputum culture: ESBL E coli 02/04: Lasix 40 mg IV x1 -02/05: Switched cefepime to meropenem (02/05) -02/06: Discontinued vancomycin -02/07: Developed rash on her face, likely related to meropenem, will discontinue meropenem and start Avycaz and will give 1 dose of gentamicin - 02/09: Chest x-ray reviewed and suggest ARDS versus pulmonary edema. Patient is overall volume overloaded. Will discontinue IV fluids, Lasix IV Patient close to 2 weeks on ventilator and is not anywhere close to being. Will discuss with family regarding proceeding to tracheostomy and PEG tube placement. -CT scan of the chest abdomen and pelvis: IMPRESSION: 1. Tiny left-sided pleural effusion. Small right-sided pleural effusion. 2. Moderate to large ground glass and patchy opacities scattered throughout both lungs. Differential is broad and includes but is not limited to edema or pneumonia. Recommend follow-up to resolution. 3. Moderate-sized consolidations in the lower lobes, larger on the right, with air bronchograms. Recommend follow-up to resolution. 4.The liver is heterogeneous. Micronodular appearance to the surface of the liver. There is a 2.4 cm low-density lesion in the posterior segment of the right lobe of the liver. A liver mass MRI is recommended. Evaluation of the liver is significantly limited due to artifact. 5. Moderate amount of nonspecific fat stranding and ascites scattered throughout the abdomen and pelvis. 6. Cholelithiasis. (2) Septic shock: Code(s): A41.9 - Sepsis, unspecified organism; R65.21 - Severe sepsis with septic shock Status: Acute Assessment and Plan: Patient with ESBL E coli pneumonia on sputum culture -low blood pressures likely related to sepsis/shock -continue Levophed,, maintain MAP > 65 mmHg or SBP > 100 mmHg at all times for adequate end organ perfusion -antibiotics as above -02/08: decreased urine output with worsening renal function, elevated lactic acidosis, elevated WBC count,, currently in septic shock. Changing antibiotics to Avycaz in 1 dose of gentamicin for the ESBL E. coli in sputum. Will bolus with LR, will start sodium bicarb infusion at 02/09 hold further IV fluids (3) Pneumonia: Code(s): J18.9 - Pneumonia, unspecified organism Status: Acute Assessment and Plan: 02/02: Chest x-ray with worsening infiltrates, thick cream to yellow colored secretion -sputum cultures as above -continue antibiotics as above (4) Encephalopathy: Qualifiers: Encephalopathy type: metabolic Qualified Code(s): G93.41 - Metabolic encephalopathy Code(s): G93.40 - Encephalopathy, unspecified Status: Acute Assessment and Plan: Multifactorial, initially thought to be secondary to hyperammonemia, liver dysfunction, sepsis, shock, kidney and -patient did receive lactulose enema on 01/31/2025, good bowel movements x2 Ammonia levels have improved but still elevated.Continue to monitor -continue lactulose -anisocoria, CT scan of the brain 01/28/2025 with no significant abnormality seen -02/02/2025, repeat CT scan of the brain with no acute intracranial process, chronic small vessel ischemic disease -appreciate Neurology evaluation, -02/04: EEG: Abnormal record due to the absence of the normal background rhythm and due to the presence of bihemispheric slow activity. These findings are suggestive of organic or metabolic encephalopathy or postictal state. Clinical correlation recommended. This tracing is not compatible with electrocerebral silence. 02/04: Patient did open her eyes and tracked, followed commands with lower extremities 02/05: required increasing sedation overnight due to hypoxia and worsening chest x-ray -continues to be encephalopathic sedation holiday (5) Hemorrhagic shock: Code(s): R57.8 - Other shock Status: Acute Assessment and Plan: RESOLVED Pt presented with rectal bleed, CT showed esophageal and rectal varices. -Transfused 2 units unmatched PRBC in the ER -hemoglobin this morning is 9.3, platelets 186 -01/28: INR 1.6, will give vitamin K -01/28: Transfused 1 unit of FFP and 1 unit of packed RBC -01/30: 1 unit of FFP and 1 unit of packed RBCs were transfused 02/05: Hypoxia, hypotension, Levophed was restarted,, maintain MAP > 65 mm Hg at all times for adequate end organ perfusion, continue antibiotics as above -01/29: Hb 7.3, INR 1.8 this morning. Transfused 1 unit of FFP and 1 unit of packed RBC, will also repeat vitamin K IVPB -01/30: Hemoglobin remained stable, decreased NG output. Discussed with GI, will continue octreotide. Discontinued Protonix infusion and IV Protonix -01/31: Hemoglobin is 9.7 this morning and stable, NG was removed 01/30 with EGD. Will continue octreotide per GI -02/01: Hemoglobin 10.1 this morning in stable, patient remains on octreotide infusion -04/04: Hemoglobin 10.4 and stable, patient remains on octreotide infusion per GI -02/03: Hemoglobin remained stable at 9.0 -02/04: Hemoglobin 9.5 and stable 01/28: CTA scan of the abdomen and pelvis: Findings within the liver for which malignancy is suspected. Additional findings within the rectum for which acute hemorrhage is suspected (likely secondary to anorectal varices). No findings to suggest upper GI bleeding. 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 Incidental notation is made of cholelithiasis. (6) Esophageal varices: Qualifiers: Esophageal varices bleeding: with bleeding Esophageal varices type: unspecified type Qualified Code(s): I85.01 - Esophageal varices with bleeding Code(s): I85.00 - Esophageal varices without bleeding Status: Acute Assessment and Plan: Esophageal varices as seen on CTA abdomen and pelvis. -appreciate GI evaluation -01/28: EGD: Showed actively bleeding gastric varix at the gastric cardia, a band ligation device was used to place 1 band, moderate gastritis was seen in the stomach. The gastric has a moderate portal hypertensive change. Large amount of blood was seen in the distal esophagus and the stomach the bowel and the 2nd portion of duodenum was normal with no ulcers or masses 01/30: Repeat EGD: Showed medium grade 3 varices (large varices almost occluding the esophageal lumen were present in the distal esophagus. There was no evidence of bleeding bleeding corresponding to the previous band. To more bands were placed. There was a large fundal pool of blood in the stomach. The bulb and the 2nd portion of duodenum was normal Appreciate GI following the patient, discussed with GI, -OFF octreotide infusion (7) Rectal varices: Code(s): K64.9 - Unspecified hemorrhoids Status: Acute Assessment and Plan: Likely related to alcoholic cirrhosis, (8) Alcoholic cirrhosis of liver with ascites: Code(s): K70.31 - Alcoholic cirrhosis of liver with ascites Status: Acute Assessment and Plan: History of alcoholic cirrhosis -LFTs and bilirubin elevated but stable -could be related to shock liver, cirrhosis, bleeding -status post ceftriaxone (01/28) for SBP prophylaxis -continue to monitor LFTs and bilirubin -INR elevated, status post vitamin K and FFP, INR is stable -continue to monitor -02/04: INR 1.7, vitamin K 10 mg IV piggyback x1 02/08: Elevated ammonia level, started lactulose and rifaximin, now that she has a Dobbhoff tube, will monitor ammonia levels (9) Acute kidney injury: Code(s): N17.9 - Acute kidney failure, unspecified Status: Acute Assessment and Plan: Acute kidney injury, likely related to hemorrhagic shock -low urine output, -02/06: Creatinine is trending to increase with septic shock likely related to ESBL E coli pneumonia -will maintain adequate SBP and MAP for adequate renal perfusion -maintain adequate MAP and SBP -continue to monitor urine output, renal function electrolytes 02/08: Worsening creatinine, decreased urine output. Will give additional IV fluid bolus and start bicarb infusion 02/09 hold further IV fluids. IV Lasix (10) Abnormal CT of liver: Code(s): R93.2 - Abnormal findings on diagnostic imaging of liver and biliary tract Status: Acute Assessment and Plan: CT abdomen and pelvis as above: Suspicious for malignancy -AFP significantly elevated to 83,546 (0.0-9.2) -GI is following the patient: Recommended may need MRI liver protocol when more stable and extubated Plan DVT prophylaxis: SCDs, no chemoprophylaxis due to hemorrhagic shock and GI bleed Stress ulcer prophylaxis: Protonix IV daily Nutrition: TPN started on 02/02 now off patient is on tube feeds Code Status: DNR 02/01: Discussed at length with patient's sister Jinny, she wants to be the decision maker, appreciate Allison from care coordination discussed with Jinny and patient's daughter Modesta. Modesta agreed the Jinny to be the surrogate decision maker. They also agree to make her a do not resuscitate, orders for DNR when placed in the chart. I answered all the questions 01/31: Discussed with Modesta Stearns, patient's daughter at [phone], updated the daughter with patient's condition from the time she came to the hospital until today. She is aware that patient is not waking up despite being off sedation likely related to hepatic encephalopathy. I updated her with the repeat EGD that was done yesterday and that the patient has received multiple blood products. I also discussed with her code status to which the daughter stated she wanted her to be a full code. She did not have any other questions. 01/30: Discussed with Jinny Cabezas, patient's sister and updated her with patient's condition and plan of care. She stated that the patient has a daughter with anemia of Modesta Stearns, she was supposed to contact the daughter and I asked to give me a call. Will try to locate daughter's number and will give her a call and explain to her patient's condition/situation and recommendations of the price changer. 02/09 I called and left a voicemail at patient's sister phone. Waiting for call back to further discuss goals of care. Critical Care Time Spent: 35 minutes Due to a high probability of clinically significant, life threatening deterioration, the patient required my highest level of preparedness to intervene emergently and I personally spent this critical care time directly and personally managing the patient. This critical care time included obtaining a history; examining the patient; pulse oximetry; ordering and review of studies; arranging urgent treatment with development of a management plan; evaluation of patient's response to treatment; frequent reassessment; and discussions with other providers. It was exclusive of separately billable procedures and treating other patients and teaching time. Please see Assessment and Plan section and the rest of the note for further information on patient assessment and treatment This dictation may have been done utilizing a voice recognition system. Attempts have been made to correct errors. However, there may be uncorrected grammatical, spelling, and recognitions errors present. Subjective Date/time seen: 02/09/25 Overnight events reviewed. Afebrile Continues to be on mechanical ventilation 60% FiO2 and 12 of PEEP Continues to be on Levophed Continues to be sedated with Versed and fentanyl On IV fluids with bicarb Low urine output Interval history: Reason for consult: GI bleed, Esophageal and rectal varices, shock, altered mental status, anisocoria, unable to protect her airway, intubated and on mechanical ventilator, hyperkalemia, acute renal failure, elevated LFTs 01/28: EGD: Showed actively bleeding gastric varix at the gastric cardia, a band ligation device was used to place 1 band, moderate gastritis was seen in the stomach. The gastric has a moderate portal hypertensive change. Large amount of blood was seen in the distal esophagus and the stomach the bowel and the 2nd portion of duodenum was normal with no ulcers or masses 01/30: Repeat EGD: Showed medium grade 3 varices (large varices almost occluding the esophageal lumen were present in the distal esophagus. There was no evidence of bleeding bleeding corresponding to the previous band. To more bands were placed. There was a large fundal pool of blood in the stomach. The bulb and the 2nd portion of duodenum was normal 02/07: Dobbhoff tube placed by IR Review of Systems Review of Systems: ROS unobtainable: Yes unobtainable due to endotracheal tube, unobtainable due to medical condition and unobtainable due to mental status Exam Narrative: General: Patient is intubated and sedated in no acute distress HEENT:? Pupils unequal, R>L, but reactive, sclera is icteric, Neck:? supple Respiratory:? Coarse breath sounds bilaterally, decreased at bases, no wheezing noted this more, adequate air entry Cardiac:? S1 S2 normal, regular rate and rhythm Abdomen:? soft, nontender, non distended, morbidly obese, very hypoactive bowel sounds Extremities:?b/l edema of lower and upper extremities, palpable pedal pulses Neuro:? Patient is intubated fentanyl and Versed infusion, does not open her eyes or follow simple commands, does not withdraw to pain Skin:? Feet are warm today Psych:? unable to assess Objective Data Vital Signs Vital Signs: Vital Signs - 24 hr 02/08/25 11:46 02/08/25 12:00 02/08/25 12:00 Temperature 35.4 C L Pulse Rate 124 H 84 Respiratory Rate 17 Blood Pressure 109/67 Pulse Oximetry 97 98 98 Oxygen Delivery Mechanical Ventilation Mechanical Ventilation Fraction of Inspired Oxygen 60 60 02/08/25 12:00 02/08/25 12:00 02/08/25 12:00 Temperature Pulse Rate 84 84 84 Respiratory Rate 22 H 22 H Blood Pressure 109/67 Pulse Oximetry Oxygen Delivery Fraction of Inspired Oxygen 02/08/25 12:00 02/08/25 12:00 02/08/25 13:17 Temperature 35.4 C L Pulse Rate 76 Respiratory Rate Blood Pressure Pulse Oximetry Oxygen Delivery Fraction of Inspired Oxygen 60 02/08/25 13:32 02/08/25 13:47 02/08/25 14:00 Temperature 35.4 C L 35.5 C L Pulse Rate 92 Respiratory Rate Blood Pressure 97/65 L Pulse Oximetry Oxygen Delivery Fraction of Inspired Oxygen 02/08/25 14:00 02/08/25 14:00 02/08/25 14:00 Temperature Pulse Rate 77 76 76 Respiratory Rate 22 H 22 H Blood Pressure Pulse Oximetry Oxygen Delivery Fraction of Inspired Oxygen 02/08/25 14:00 02/08/25 14:02 02/08/25 14:17 Temperature 35.6 C L 35.6 C L 35.7 C L Pulse Rate 76 Respiratory Rate 22 H Blood Pressure 96/61 L Pulse Oximetry 94 Oxygen Delivery Fraction of Inspired Oxygen 02/08/25 14:20 02/08/25 14:28 02/08/25 14:29 Temperature Pulse Rate 79 78 78 Respiratory Rate 22 H 22 H Blood Pressure Pulse Oximetry 95 Oxygen Delivery Mechanical Ventilation Fraction of Inspired Oxygen 60 02/08/25 14:47 02/08/25 15:00 02/08/25 15:17 Temperature 35.9 C L 36.2 C L Pulse Rate 90 Respiratory Rate Blood Pressure 99/60 L Pulse Oximetry Oxygen Delivery Fraction of Inspired Oxygen 02/08/25 15:30 02/08/25 16:00 02/08/25 16:00 Temperature 36.3 C L 36.4 C 36.4 C Pulse Rate 89 Respiratory Rate 19 Blood Pressure 102/60 Pulse Oximetry 97 Oxygen Delivery Fraction of Inspired Oxygen 02/08/25 16:00 02/08/25 16:00 02/08/25 16:00 Temperature Pulse Rate 89 89 Respiratory Rate 22 H Blood Pressure 102/60 Pulse Oximetry Oxygen Delivery Fraction of Inspired Oxygen 60 02/08/25 16:00 02/08/25 16:00 02/08/25 16:00 Temperature Pulse Rate 89 90 Respiratory Rate 22 H Blood Pressure Pulse Oximetry 98 Oxygen Delivery Mechanical Ventilation Fraction of Inspired Oxygen 60 02/08/25 16:28 02/08/25 16:55 02/08/25 17:55 Temperature 36.6 C 36.4 C Pulse Rate 92 91 Respiratory Rate 25 H Blood Pressure 105/61 Pulse Oximetry 95 98 Oxygen Delivery Mechanical Ventilation Fraction of Inspired Oxygen 60 02/08/25 18:00 02/08/25 18:00 02/08/25 18:00 Temperature Pulse Rate 91 91 91 Respiratory Rate 22 H Blood Pressure 105/61 Pulse Oximetry Oxygen Delivery Fraction of Inspired Oxygen 02/08/25 18:00 02/08/25 19:15 02/08/25 19:30 Temperature Pulse Rate 91 83 84 Respiratory Rate 22 H Blood Pressure 94/59 L 105/63 Pulse Oximetry Oxygen Delivery Fraction of Inspired Oxygen 02/08/25 19:48 02/08/25 19:48 02/08/25 20:00 Temperature Pulse Rate 86 86 97 Respiratory Rate 23 H 25 H Blood Pressure Pulse Oximetry 98 Oxygen Delivery Mechanical Ventilation Fraction of Inspired Oxygen 60 02/08/25 20:00 02/08/25 20:00 02/08/25 20:00 Temperature Pulse Rate 87 87 87 Respiratory Rate 22 H 22 H Blood Pressure 109/63 Pulse Oximetry Oxygen Delivery Fraction of Inspired Oxygen 02/08/25 20:00 02/08/25 20:00 02/08/25 20:00 Temperature 36.4 C Pulse Rate 87 87 99 Respiratory Rate 22 H Blood Pressure 109/63 Pulse Oximetry 98 98 Oxygen Delivery Mechanical Ventilation Fraction of Inspired Oxygen 60 02/08/25 20:00 02/08/25 22:00 02/08/25 22:00 Temperature 36.5 C Pulse Rate 85 85 Respiratory Rate 22 H Blood Pressure 105/58 L Pulse Oximetry 98 Oxygen Delivery Fraction of Inspired Oxygen 60 02/08/25 22:00 02/08/25 22:00 02/08/25 22:00 Temperature Pulse Rate 85 85 85 Respiratory Rate 22 H 22 H Blood Pressure 105/58 L Pulse Oximetry Oxygen Delivery Fraction of Inspired Oxygen 02/08/25 22:36 02/08/25 22:36 02/08/25 23:32 Temperature Pulse Rate 83 83 84 Respiratory Rate 22 H 22 H Blood Pressure Pulse Oximetry 98 Oxygen Delivery Mechanical Ventilation Fraction of Inspired Oxygen 60 02/09/25 00:00 02/09/25 00:00 02/09/25 00:00 Temperature Pulse Rate 83 86 86 Respiratory Rate 22 H 22 H Blood Pressure 106/58 L Pulse Oximetry Oxygen Delivery Fraction of Inspired Oxygen 02/09/25 00:00 02/09/25 00:00 02/09/25 00:00 Temperature 36.6 C Pulse Rate 86 87 Respiratory Rate 22 H 22 H Blood Pressure 106/58 L Pulse Oximetry 98 98 Oxygen Delivery Mechanical Ventilation Fraction of Inspired Oxygen 60 60 02/09/25 00:00 02/09/25 02:00 02/09/25 02:00 Temperature Pulse Rate 83 85 85 Respiratory Rate 22 H Blood Pressure 111/59 L Pulse Oximetry Oxygen Delivery Fraction of Inspired Oxygen 02/09/25 02:00 02/09/25 02:00 02/09/25 02:00 Temperature 36.6 C Pulse Rate 85 85 85 Respiratory Rate 22 H 22 H Blood Pressure 111/59 L Pulse Oximetry 98 Oxygen Delivery Fraction of Inspired Oxygen 02/09/25 02:21 02/09/25 02:21 02/09/25 02:28 Temperature Pulse Rate 83 83 85 Respiratory Rate 22 H 22 H Blood Pressure Pulse Oximetry 97 Oxygen Delivery Mechanical Ventilation Fraction of Inspired Oxygen 60 02/09/25 04:00 02/09/25 04:00 02/09/25 04:00 Temperature 36.7 C Pulse Rate 91 91 91 Respiratory Rate 22 H 22 H Blood Pressure 106/55 L 106/55 L Pulse Oximetry 98 Oxygen Delivery Fraction of Inspired Oxygen 02/09/25 04:00 02/09/25 04:00 02/09/25 04:00 Temperature Pulse Rate 91 91 92 Respiratory Rate 22 H 22 H Blood Pressure Pulse Oximetry 98 Oxygen Delivery Mechanical Ventilation Fraction of Inspired Oxygen 60 02/09/25 04:00 02/09/25 04:43 02/09/25 06:00 Temperature 36.7 C Pulse Rate 91 87 Respiratory Rate 24 H Blood Pressure 103/59 L Pulse Oximetry 98 98 Oxygen Delivery Mechanical Ventilation Fraction of Inspired Oxygen 60 60 02/09/25 06:00 02/09/25 06:00 02/09/25 06:00 Temperature Pulse Rate 89 89 89 Respiratory Rate 24 H Blood Pressure 103/59 L Pulse Oximetry Oxygen Delivery Fraction of Inspired Oxygen 02/09/25 06:00 02/09/25 07:50 02/09/25 07:50 Temperature Pulse Rate 86 81 81 Respiratory Rate 24 H 22 H Blood Pressure Pulse Oximetry 97 Oxygen Delivery Mechanical Ventilation Fraction of Inspired Oxygen 60 02/09/25 08:00 02/09/25 08:00 02/09/25 08:00 Temperature 36.7 C Pulse Rate 90 90 Respiratory Rate 22 H 22 H Blood Pressure 94/74 L Pulse Oximetry 98 98 Oxygen Delivery Mechanical Ventilation Fraction of Inspired Oxygen 50 50 02/09/25 08:00 02/09/25 08:03 02/09/25 08:03 Temperature Pulse Rate 95 97 97 Respiratory Rate 22 H 22 H Blood Pressure Pulse Oximetry Oxygen Delivery Fraction of Inspired Oxygen 02/09/25 08:04 02/09/25 08:04 02/09/25 08:20 Temperature Pulse Rate 91 91 97 Respiratory Rate 22 H Blood Pressure 94/74 L 102/61 Pulse Oximetry Oxygen Delivery Fraction of Inspired Oxygen 02/09/25 08:30 02/09/25 08:45 02/09/25 09:00 Temperature Pulse Rate 100 105 H 104 H Respiratory Rate Blood Pressure 125/68 106/60 112/83 Pulse Oximetry Oxygen Delivery Fraction of Inspired Oxygen 02/09/25 10:00 02/09/25 10:00 02/09/25 10:00 Temperature 36.8 C Pulse Rate 106 H 106 H 106 H Respiratory Rate 16 16 Blood Pressure 109/60 109/60 Pulse Oximetry 95 Oxygen Delivery Fraction of Inspired Oxygen 02/09/25 10:00 02/09/25 10:00 Temperature Pulse Rate 106 H 106 H Respiratory Rate 16 Blood Pressure Pulse Oximetry Oxygen Delivery Fraction of Inspired Oxygen Intake/Output Intake/Output: Intake & Output 02/06/25 02/07/25 02/08/25 02/09/25 23:59 23:59 23:59 23:59 Intake Total 2166.0 2003.3 6031.1 2777.9 Output Total 650 700 350 125 Balance 1516.0 1303.3 5681.1 2652.9 Meds/Results Medications: Active Medications Generic Name Dose Route Start Last Admin Trade Name Freq PRN Reason Stop Dose Admin Acetaminophen 650 mg 02/01/25 14:06 02/01/25 15:42 Acetaminophen 650 Mg Suppository RECTAL 650 mg Q6H PRN Administration Mild Pain (1-3) or Fever Albuterol/Ipratropium 3 ml 01/30/25 14:00 02/09/25 07:48 Ipratropium 0.5 Mg/Albuterol Sulfate 2.5 Mg Ampul.Neb 3 Ml INHALATION 3 ml Q6HRT TATYANA Administration Alteplase, Recombinant 2 mg 02/02/25 10:10 Alteplase 2 Mg Vial (Cathflo) IV PUSH ONCE PRN Line Occlusion Dextrose 12.5 gm 02/09/25 07:56 Dextrose 50% 25 Gm/50 Ml Syringe IV PUSH PRN PRN Hypoglycemia Protocol Glucagon 1 mg 02/09/25 07:56 Glucagon For Inj 1 Mg Vial IM PRN PRN Hypoglycemia Protocol Glucose 15 gm 02/09/25 07:56 Glucose Oral Gel 15 Gm Of Glucse In 37.5 Gm Tube PO PRN PRN Hypoglycemia Protocol Dextrose 1,000 mls @ 50 mls/hr 02/02/25 10:12 Dextrose 10% IV CONT .Q20H PRN if PN is interrupted Midazolam HCl 100 mg in 100 mls @ 0 mls/hr 02/04/25 21:25 02/09/25 10:00 Versed 100 Mg/Ns 100 Ml IV CONT 0 mg/hr .Q0M TATYANA 0 mls/hr Titration Protocol Norepinephrine Bitartrate 8 mg in 250 mls @ 3.75 mls/hr 02/04/25 22:15 02/09/25 10:00 Levophed 8 Mg/D5w 250 Ml IV CONT 0 mcg/min .Q24H TATYANA 0 mls/hr Titration Protocol 2 MCG/MIN Fentanyl Citrate 2,500 mcg in 250 mls @ 0 mls/hr 02/06/25 23:05 02/09/25 10:00 Fentanyl 2,500 Mcg/Ns 250 Ml IV CONT 0 mcg/hr .Q0M TATYANA 0 mls/hr Titration Protocol Ceftazidime/Avibactam 2.5 gm/ 112 mls @ 56 mls/hr 02/08/25 20:00 02/09/25 06:40 Sodium Chloride IVPB Infused Q8H TATYANA Infusion Dextrose 1,000 mls @ 100 mls/hr 02/09/25 07:56 Dextrose 5% 1,000 Ml IVPB PRN PRN Hypoglycemia Protocol Insulin Aspart 4 - 8 units 02/09/25 08:00 02/09/25 08:20 Insulin Aspart (*Bkc) 100 Units/Ml SUB-Q 4 units Q4H TATYANA Administration Protocol Insulin Glargine 20 units 02/09/25 09:00 02/09/25 08:20 Insulin Glargine (*Bkc) 100 Units/Ml SUB-Q 20 units QAM TATYANA Administration Lactulose 20 gm 02/09/25 09:00 02/09/25 08:19 Lactulose 20 Gm/30 Ml Udc FEED TUBE 20 gm BID TATYANA Administration Multi-Ingred Cream/Lotion/Oil/Oint 1 applic 01/28/25 09:15 02/09/25 08:20 Mineral Oil/White Petrolatum Ointment EACH EYE 1 applic Q12HR TATYANA Administration Ondansetron HCl 4 mg 01/28/25 01:51 Ondansetron Inj 4 Mg/2 Ml Vial IV PUSH Q4H PRN Nausea Pantoprazole Sodium 40 mg 02/05/25 09:00 02/09/25 08:20 Pantoprazole Sodium Iv 40 Mg Vial IV PUSH 40 mg QAM TATYANA Administration Rifaximin 550 mg 02/08/25 09:00 02/09/25 08:19 Rifaximin 550 Mg Tablet PO 550 mg Q12HR TATYANA Administration Sodium Bicarbonate 650 mg 02/09/25 09:00 02/09/25 08:19 Sodium Bicarbonate Tab 650 Mg Tablet FEED TUBE 650 mg BID TATYANA Administration Sodium Chloride 10 ml 01/28/25 14:00 02/09/25 05:46 Central Line Flush IV PUSH 10 ml Q8HR TATYANA Administration Sodium Chloride 20 ml 01/28/25 06:37 Central Line Flush IV PUSH PRN PRN after blood draws Radiology Results: ITS Impressions Abdomen/Pelvis CTA 01/28/25 00:08 IMPRESSION: Findings within the liver for which malignancy is suspected. Additional findings within the rectum for which acute hemorrhage is suspected (likely secondary to anorectal varices). No findings to suggest upper GI bleeding. 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 Incidental notation is made of cholelithiasis. Head CT 02/02/25 13:34 IMPRESSION: 1. No acute intracranial process. 2. Stable age-related changes including mild diffuse volume loss and mild scattered white matter hypoattenuation consistent with chronic small vessel ischemic disease. Chest/Abdomen/Pelvis CT 02/05/25 10:13 IMPRESSION: 1. Tiny left-sided pleural effusion. Small right-sided pleural effusion. 2. Moderate to large groundglass and patchy opacities scattered throughout both lungs. Differential is broad and includes but is not limited to edema or pneumonia. Recommend follow-up to resolution. 3. Moderate-sized consolidations in the lower lobes, larger on the right, with air bronchograms. Recommend follow-up to resolution. 4.The liver is heterogeneous. Micronodular appearance to the surface of the liver. There is a 2.4 cm low-density lesion in the posterior segment of the right lobe of the liver. A liver mass MRI is recommended. Evaluation of the liver is significantly limited due to artifact. 5. Moderate amount of nonspecific fat stranding and ascites scattered throughout the abdomen and pelvis. 6. Cholelithiasis. Abdomen X-Ray 02/07/25 10:42 IMPRESSION: 1. Diffuse opacification of the abdomen without significant bowel gas, likely attributable to ascites. Study limited by patient body habitus. 2: Bibasilar airspace disease may represent edema or pneumonia. Chest X-Ray 02/09/25 08:25 IMPRESSION: 1. Small lung volumes with diffuse patchy bilateral airspace opacities which could represent atelectasis and/or pneumonia with slight improvement in the right mid-upper lung zone. Labs Labs: Laboratory Results - last 24 hr 02/08/25 02/08/25 02/08/25 11:16 17:57 19:59 WBC RBC Hgb Hct MCV MCH MCHC RDW Plt Count MPV Immature Gran % (Auto) Neut % (Auto) Lymph % (Auto) [place] % (Auto) Eos % (Auto) Baso % (Auto) Lymph # (Auto) [place] # (Auto) Eos # (Auto) Baso # (Auto) Abs Immat Gran (auto) Absolute Neuts (auto) Absolute Nucleated RBC Band Neutrophils % Nucleated RBC % Platelet Estimate Anisocytosis Crenated Cell Schistocytes PT INR APTT Puncture Site ABG pH ABG pCO2 ABG pO2 ABG PO2/FiO2 Ratio ABG HCO3 ABG O2 Saturation ABG O2 Content ABG Base Excess A-a Gradient Oxyhemoglobin Carboxyhemoglobin Methemoglobin Reduced Hemoglobin Total Hemoglobin O2 Delivery Device O2 Liters/Min Minute Volume Vent Rate Vent Mode FiO2 Tidal Volume PEEP Peak Inspir Pressure Pressure Support Sodium 136 L Potassium 4.0 Chloride 109 H Carbon Dioxide 17 L Anion Gap 10 BUN 68 H Creatinine 1.75 H Estim Creat Clear Calc 50 Estimated GFR 29 L Glucose 239 H POC Capillary Glucose 252 H 265 H Calcium 9.5 Phosphorus Magnesium 1.7 Transferrin Total Bilirubin AST ALT Alkaline Phosphatase Ammonia Total Protein Albumin Triglycerides 02/09/25 02/09/25 02/09/25 00:22 04:23 04:31 WBC 22.3 H RBC 2.85 L Hgb 9.7 L Hct 30.6 L MCV 107.4 H MCH 34.0 MCHC 31.7 L RDW 23.1 H Plt Count 216 MPV 10.7 H Immature Gran % (Auto) 3.7 H Neut % (Auto) 86.4 H Lymph % (Auto) 4.2 L [place] % (Auto) 5.4 Eos % (Auto) 0.0 Baso % (Auto) 0.3 Lymph # (Auto) 0.93 [place] # (Auto) 1.2 H Eos # (Auto) 0.0 Baso # (Auto) 0.1 Abs Immat Gran (auto) 0.83 H Absolute Neuts (auto) 19.3 H Absolute Nucleated RBC 0.140 H Band Neutrophils % Not Reportable Nucleated RBC % 0.6 H Platelet Estimate Adequate Anisocytosis 2+ Crenated Cell 1+ Schistocytes None seen PT 18.4 H INR 1.5 APTT 31.1 Puncture Site Right radial ABG pH 7.307 L ABG pCO2 39.4 ABG pO2 85.9 ABG PO2/FiO2 Ratio 1.43 ABG HCO3 19.3 L ABG O2 Saturation 95.7 ABG O2 Content 14.6 L ABG Base Excess -6.5 A-a Gradient 298.6 Oxyhemoglobin 95.6 Carboxyhemoglobin 0.3 Methemoglobin 0.2 Reduced Hemoglobin 3.9 Total Hemoglobin 10.8 L O2 Delivery Device Ventilator O2 Liters/Min Not Reportable Minute Volume Not Reportable Vent Rate 22 Vent Mode Cmv FiO2 60 Tidal Volume 400 PEEP 12 Peak Inspir Pressure Not Reportable Pressure Support Not Reportable Sodium 138 Potassium 4.3 Chloride 110 H Carbon Dioxide 20 L Anion Gap 8 BUN 77 H Creatinine 1.86 H Estim Creat Clear Calc 47 Estimated GFR 27 L Glucose 237 H POC Capillary Glucose 225 H Calcium 9.3 Phosphorus 4.4 Magnesium 1.9 Transferrin 81 L Total Bilirubin 4.2 H AST 232 H ALT 62 H Alkaline Phosphatase 116 Ammonia 36 H Total Protein 6.5 Albumin 2.7 L Triglycerides 161 H 02/09/25 08:17 WBC RBC Hgb Hct MCV MCH MCHC RDW Plt Count MPV Immature Gran % (Auto) Neut % (Auto) Lymph % (Auto) [place] % (Auto) Eos % (Auto) Baso % (Auto) Lymph # (Auto) [place] # (Auto) Eos # (Auto) Baso # (Auto) Abs Immat Gran (auto) Absolute Neuts (auto) Absolute Nucleated RBC Band Neutrophils % Nucleated RBC % Platelet Estimate Anisocytosis Crenated Cell Schistocytes PT INR APTT Puncture Site ABG pH ABG pCO2 ABG pO2 ABG PO2/FiO2 Ratio ABG HCO3 ABG O2 Saturation ABG O2 Content ABG Base Excess A-a Gradient Oxyhemoglobin Carboxyhemoglobin Methemoglobin Reduced Hemoglobin Total Hemoglobin O2 Delivery Device O2 Liters/Min Minute Volume Vent Rate Vent Mode FiO2 Tidal Volume PEEP Peak Inspir Pressure Pressure Support Sodium Potassium Chloride Carbon Dioxide Anion Gap BUN Creatinine Estim Creat Clear Calc Estimated GFR Glucose POC Capillary Glucose 235 H Calcium Phosphorus Magnesium Transferrin Total Bilirubin AST ALT Alkaline Phosphatase Ammonia Total Protein Albumin Triglycerides Quality VTE Prophylaxis VTE prophylaxis: mechanical ordered
--- NOTE | 2025-02-09 10:54 | PCFNICU ---
ICU Rounding Note: Pt current nutrition is Vital 1.2 @ 40 ml/h with flushes 30 ml q 4 h. TPN is off. Nutrition recommendation: Advance to goal rate 60 ml/h as medically able. Last recorded weight is 181.5 kg. Bowel Motility: +3 BMs 02/08 Labs Reviewed: Hgb 9.7, Hct 30.6, Alb 2.7, BUN 77, Cre 1.86, Glu 237. MAP 76 Meds Noted: Versed, fentanyl, levophed. Skin: No pressure injuries Additional Notes: TPN is off. Running Vital 1.2 @ 40 ml/h to provide 1056 kcal, 66 g protein, 715 ml free water. Goal rate recommended 60 ml/h to provide 1584 kcal, 99 g protein, 1070 ml free water. Currently meeting needs @ 7 kcal/kg, 0.4 g protein/kg. Not adequate for needs. Will likely require protein modular to meet estimated protein needs. Following daily in ICU rounds. Will monitor weight, labs, skin, diet orders, meds every Sunday and Sunday. .
[2025-02-09] MEDS: CEFTAZIDIME IVPB (11:48)
[2025-02-09] MEDS: AVIBACTAM IVPB (11:48)
[2025-02-09] MEDS: SODIUM CHLORIDE 0.9% IVPB (11:48)
--- NOTE | 2025-02-09 13:16 | P.PNCROSS_ITS ---
Event Note Event Note Event Note: Family Meeting I called and spoke to patient's sister Jinny and daughter Modesta. They both live out of town. Dr. Preciado had discussed with them yesterday regarding patient's current condition which includes multiorgan failure, sepsis, acute renal failure, cirrhosis, GI bleed, encephalopathy and the fact the patient has been on ventilator for close to 2 days and discussed option of trach and PEG. They had mentioned the patient would not want trach and PEG and had already poor quality of life since she has been living in intermediate. Patient was made DNR. They were going to discuss among themselves and make final decision. I spoke to both of them individually and both of them confirmed that they had discussed among themselves and have decided to proceed with palliative care. They both are in agreement to take patient off ventilator and treat her pain and anxiety and distress and let her 'go in peace' improved confirmed that they would like to donate Ulysses's body to science. I have explained to them that I will use opioids, anxiolytics and other agents on as needed basis to promote comfort and discontinue all medical therapy, lab testing and invasive monitoring. Patient will eventually . They both verbalized understanding and agreed to proceed. They states that they live far away and will not be able to make his and would like to be informed by phone if and when she expires. I have placed comfort orders in the chart patient will be palliatively extubated. I have also notified the patient's primary care hospitalist Dr. Patterson. Will also involve healthcare recruiter in feeling out details about donation of her body.
[2025-02-09] MEDS: LORazepam INJ (*CRX) 2 MG/ML VIAL IV PUSH ×5 (16:19→22:36)
[2025-02-09] MEDS: MORPHINE SULFATE INJ (*CRX) 10 MG/ML AMP 5 MG IV PUSH (16:20)
[2025-02-09] MEDS: MORPHINE SULFATE (*CRX) 2 MG/ML INJ 4 MG IV PUSH ×6 (16:55→22:35)
[2025-02-10] MEDS: MORPHINE SULFATE (*CRX) 2 MG/ML INJ 4 MG IV PUSH ×2 (02:51→06:21)
[2025-02-10] MEDS: LORazepam INJ (*CRX) 2 MG/ML VIAL IV PUSH ×2 (02:52→06:21)
[2025-02-10] MEDS: CENTRAL LINE FLUSH 10 ML IV PUSH (06:21)
--- NOTE | 2025-02-11 11:05 | PM.DDS ---
Discharge Summary Date and Time Date of : 02/10/25 Time of : 06:54 Provider Pronounced By: 2 RNs Name of First RN That Pronounced: Nazario Ordonez RN Name of Second RN That Pronounced: Taiwo Mosquera RN Probable Cause of Probable Cause of : Acute respiratory failure, upper GI bleed, pneumonia, sepsis, acute kidney injury Summary Hospital Course: 64-year-old female with past medical history of alcohol abuse leading to alcoholic cirrhosis was admitted on 01/28 with GI bleeding. She developed hemorrhagic shock and CT scan showed esophageal and rectal wears his. Patient was treated with Protonix and octreotide infusion along with transfusion of blood products including PRBC FFP. She was placed on vasopressors. She was intubated for airway protection as patient was encephalopathy ache. She also developed acute kidney injury. CT scan also showed patient had developed pneumonia. 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 She had repeat EGD on 01/30 which showed medium grade 3 varices more banding was done. Post that octreotide infusion was discontinued. Chronic switched to IV CT scan also showed a mass which was suspicious of malignancy in the liver her AFP was significantly elevated. She was temporally start on TPN and then later switched to T tube feeds On 02/04 patient has developed leak in the ET tube cough and she was reintubated Patient remained on ventilator for close to 2 weeks During this time several discussions were done with patient's daughter Modesta and sister Jinny. Patient was already in care home resident. They had made patient DNR during the hospital course. Several discussions were done regarding goals of care. They were in agreement the patient did not want trach and PEG or prolonged mechanical ventilator support. As patient was on a ventilator close to 2 weeks and no where close to weaning we discussed option of tracheostomy and PEG tube placement. After consideration of patient multiorgan failure with sepsis acute renal failure pneumonia respiratory failure GI bleeding encephalopathy coagulopathy and underlying cirrhosis with possibility of liver mass with sister and daughter decided to proceed with comfort care and palliative extubation. They both were in agreement the patient would not want to go to a facility living on a ventilator an artificial feeding with poor quality of life. I spoke to them personally by phone individually on 02/09 and they decided to proceed with palliative extubation and comfort care. Patient was extubated and kept comfortable with treatment of pain and distress. Patient on 02/10 morning at 6:54 a.m. in the ICU. Both sister and daughter were notified by phone by the nurse. Additional Data Confirmation of as documented by pronouncing clinician: Pupillary Reflex, Palpable Pulses, Response to Stimuli, Heart Tones and Breath Sounds Name of Provider Notified: Dr. Mckeon Time Provider Notified: 06:55 Provider Requests Autopsy: No Family Requests Autopsy: No Clinical Informatics Physician Notified: Yes Date [facility] Notified of : 02/10/25 Time [facility] Notified of : 08:11
== END 2025-02-10 06:55 | disposition expired | DRG 280 ==
LOC: ANHED 01-28 01:51 → ANHICU 01-28 02:19
PROVIDERS: Internal Medicine; Internal Medicine Gastroenterology; Admitting Provider Internal Medicine; Emergency Provider Physician Assistant; PCP Nurse Practitioner Family; Visit Provider Internal Medicine
PROC: 0DJ08ZZ Inspection of Upper Intestinal Tract, Via Natural or Artificial Opening Endoscopic (ICD-10-PCS; principal; 2025-01-28 12:00)
DX: K70.31 Alcoholic cirrhosis of liver with ascites (principal); K70.41 Alcoholic hepatic failure with coma; I86.4 Gastric varices; I85.10 Secondary esophageal varices without bleeding; D62 Acute posthemorrhagic anemia; J98.8 Other specified respiratory disorders; K76.6 Portal hypertension; E66.01 Morbid (severe) obesity due to excess calories; Z68.43 Body mass index [BMI] 50.0-59.9, adult; R57.8 Other shock; I86.8 Varicose veins of other specified sites; N17.9 Acute kidney failure, unspecified; C22.0 Liver cell carcinoma; F10.21 Alcohol dependence, in remission; Z66 Do not resuscitate; J18.9 Pneumonia, unspecified organism; G93.41 Metabolic encephalopathy; J15.5 Pneumonia due to Escherichia coli; R65.21 Severe sepsis with septic shock; A41.9 Sepsis, unspecified organism; J69.0 Pneumonitis due to inhalation of food and vomit; L27.0 Generalized skin eruption due to drugs and medicaments taken internally; T36.1X5A Adverse effect of cephalosporins and other beta-lactam antibiotics, initial encounter; Z16.12 Extended spectrum beta lactamase (ESBL) resistance; Z87.891 Personal history of nicotine dependence; K29.21 Alcoholic gastritis with bleeding
CPT/HCPCS: 31500; 36415; 36430; 36556; 36600; 43752; 70450; 71045; 71260; 74019; 74174; 74177; 80048; 80053; 80202; 81001; 82105; 82140; 82375; 82565; 82805; 82948; 83050; 83605; 83690; 83735; 84100; 84466; 84478; 84484; 85018; 85025; 85027; 85055; 85380; 85384; 85610; 85730; 86140; 86850; 86900; 86901; 86920; 86923; 87040; 87070; 87086; 87205; 87641; 93005; 94002; 94003; 94640; 95816; 96361; 96365; 96374; 96375; 99285; A9270; C1751; C8929; J0168; J0692; J0696; J0714; J1171; J1200; J1580; J1815; J1938; J2060; J2185; J2250; J2270; J2354; J2470; J2765; J2919; J3010; J3373; J3430; J3475; J7030; J7040; J7050; J7070; J7120; J7639; P9012; P9016; P9017; P9045; P9047; Q9957; Q9966; Q9967